=== PATIENT | female | born 1980 | race Caucasian/White ===

== ENCOUNTER 2019-07-19 11:05 | Outpatient (CLI) | payer OTHER, SELFPAY ==
[2019-07-19 11:24] LABS: Hemoglobin A1C 7.3 % (<5.7)
== END 2019-07-19 11:06 | disposition home or self-care (01) ==
PROVIDERS: PCP Family Medicine; Visit Provider Family Medicine
DX: E11.9 Type 2 diabetes mellitus without complications (principal)
CPT/HCPCS: 36415; 83036

== ENCOUNTER 2019-09-28 09:29 | Emergency (ER) | payer OTHER, SELFPAY ==
[2019-09-28 09:40] VITALS: BP 180/100; PULSE 99; RESP 20; TEMP 36.8; O2SAT 95
--- NOTE | 2019-09-28 09:44 | ED.DENTAL ---
HPI - Dental/Oral General Chief complaint: Dental/Oral Stated complaint: PAIN IN MOUTH Time Seen by Provider: 09/28/19 09:31 Source: patient Mode of arrival: ambulatory Limitations: no limitations History of Present Illness HPI Narrative: 39-year-old woman comes in today complaining of face and jaw pain that started several days ago. Patient states that she has got diffuse dental decay and is having her teeth removed in order to get dentures. She states that she woke up this morning with severe pain in her right jaw, right cheek, right rastafari, around her right eye. She states that she feels like she had a fever but did not check her temperature. She has had no vomiting, difficulty swallowing or difficulty breathing. She has a follow-up appointment with her dentist on the 07 of October. MD Complaint: tooth pain Teeth map: 1. Pain 2. pain Onset (ago): day(s) Severity: severe Relieving factors: nothing Exacerbating factors: chewing and cold Context: history of dental caries and poor dental care Associated symptoms: fever and gum swelling Related Data Home Medications Medication Instructions Recorded Confirmed alprazolam 1 mg tablet 1 mg PO BID 01/25/19 09/28/19 duloxetine 60 mg capsule,delayed 60 mg PO BID 01/25/19 09/28/19 release trazodone 100 mg tablet 200 mg PO HS 01/25/19 09/28/19 ziprasidone HCl 60 mg capsule 60 mg PO BID 01/25/19 09/28/19 Allergies Allergy/AdvReac Type Severity Reaction Status Date / Time latex Allergy Intermediate Unknown Verified 09/28/19 09:18 Penicillins Allergy Intermediate Unknown Verified 09/28/19 09:18 propoxyphene [Darvocet-N 100] Allergy Intermediate Unknown Verified 09/28/19 09:18 Review of Systems Constitutional: Constitutional: Denies chills and Reports fever(s) Eyes: Eyes: Denies change in vision and Denies photophobia ENT: Denies dysphagia, Denies nasal congestion and Denies sore throat Cardiovascular: Cardiovascular: Denies chest pain and Denies radiating jaw, neck or arm pain Respiratory: Respiratory: Denies cough, Denies dyspnea and Denies wheezing Gastrointestinal: Gastrointestinal: Denies abdominal pain, Denies diarrhea, Denies nausea and Denies vomiting Musculoskeletal: Musculoskeletal: Denies arthralgias and Denies joint swelling Integumentary/Breasts: Skin/Breast: Denies pruritus, Denies erythema and Denies rash Neurologic: Denies vertigo, Denies dizziness and Denies syncope Hematologic/Lymphatic: Hematologic/Lymphatic: Denies easy bleeding and Denies easy bruising Allergic/Immunologic: Allergic/Immunologic: Denies lip swelling and Denies wheezing PMFSH Past Medical History Medical History ADHD Bipolar disorder Depression RAJ (generalized anxiety disorder) Hyperlipidemia associated with type 2 diabetes mellitus Hypertension associated with diabetes Methamphetamine abuse Neuropathy Nicotine dependence Overweight Tobacco dependence Type 2 diabetes mellitus Vitamin D deficiency Surgical History Surgical History History of bilateral tubal ligation (~2009) Hx of tonsillectomy (~1994) Social History Social History Smoking packs per day: 3 Smoking cigarettes per day: 60.0 Years smoked: 15 Smoking pack-years: 45.00 Smoking status: Current every day smoker Tobacco type: cigarettes Substance use: former Exam Const: General: alert Nutritional Appearance: obese Orientation/consciousness: patient oriented x3 Limitations: no limitations Other: moderate acute distress, tearful HENMT: Ears: external ears normal, TM's normal bilaterally and EAC's normal General nose exam: Normal nares present Face and sinus: normal facial exam Mouth: Yes moist mucous membranes Throat: posterior oropharynx normal Other: Gross decay of the bottom incisors and multiple severely d
[2019-09-28 10:03] VITALS: BP 145/90; PULSE 90; RESP 20; TEMP 36.6; O2SAT 94
== END 2019-09-28 10:07 | disposition home or self-care (01) ==
PROVIDERS: Emergency Provider Emergency Medicine; PCP Family Medicine
DX: K08.89 Other specified disorders of teeth and supporting structures (principal)
CPT/HCPCS: 99283

== ENCOUNTER 2020-06-21 08:59 | Outpatient (CLI) | payer OTHER, SELFPAY ==
[2020-06-21 09:08] LABS: Basophils Absolute Auto 0.07 K/mm3 (0.00-0.10); Basophils Percent Auto 0.6 % (0.0-1.0); Eosinophils Absolute Auto 0.37 K/mm3 (0.02-0.50); Hematocrit 44.6 % (35.0-49.0); Hemoglobin 14.4 g/dL (12.0-15.0); Immature Granulocyte Absolute 0.08 K/mm3 (0.00-0.00); Immature Granulocyte Percent A 0.7 % (0.0-0.0); Lymphocytes Absolute Auto 3.12 K/mm3 (1.10-4.50); Lymphocytes Percent Auto 25.4 % (18.0-42.0); Mean Corpuscular HGB Conc 32.3 g/dL (32.0-36.0); Mean Corpuscular Hemoglobin 27.9 pg (27.0-31.0); Mean Corpuscular Volume 86.4 fL (78.0-102.0); Mean Platelet Volume 9.1 fl (9.2-11.8); Monocytes Absolute Auto 0.75 K/mm3 (0.10-0.90); Monocytes Percent Auto 6.1 % (2.0-11.0); Neutrophils Absolute Auto 7.9 K/mm3 (1.7-7.2); Neutrophils Percent Auto 64.2 % (50.0-70.0); Platelet Count Result 380 K/mm3 (150-420); Red Blood Count 5.16 M/mm3 (4.20-5.40); Red Cell Distribution Width 12.9 % (11.6-14.4); White Blood Count 12.3 K/mm3 (4.8-10.8)
--- NOTE | 2020-06-21 09:25 | ECG_ITS ---
Measurements Intervals [place] Rate: 70 P: 57 PA: 163 QRS: 31 QRSD: 93 T: 40 QT: 403 QTc: 436 Interpretive Statements SINUS RHYTHM INCOMPLETE RIGHT BUNDLE BRANCH BLOCK BORDERLINE ECG Electronically Signed On 06-21-2020 11:02:46 CDT by Tate Raya D.O.
[2020-06-21 09:43] LABS: Alanine Aminotransferase 23 U/L (14-59); Albumin Level 3.4 g/dL (3.4-5.0); Alkaline Phosphatase 60 U/L (46-116); Anion Gap 6 mmol/L (8-16); Aspartate Amino Transferase 13 U/L (15-37); Bilirubin,Total 0.4 mg/dL (0.00-1.00); Blood Urea Nitrogen 11 mg/dL (7-18); Calcium 8.8 mg/dL (8.5-10.1); Carbon Dioxide 31 mmol/L (21-32); Chloride 100 mmol/L (98-108); Cholesterol 119 mg/dL (0-200); Estimated Glomerular Filt Rate > 60; Glucose 181 mg/dL (70-99); HDL Direct 28 mg/dL (40-60); LDL Cholesterol Calculated 42 mg/dL (<130); Osmolality Calculated 288 mOsm/kg (285-295); Potassium 4.8 mmol/L (3.5-5.1); Sodium 137 mmol/L (136-145); Total Protein 6.8 g/dL (6.4-8.2); Triglycerides 244 mg/dL (0-150)
[2020-06-23 23:09] LABS: Lithium <0.15 mmol/L (0.60-1.20)
== END 2020-06-21 09:00 | disposition home or self-care (01) ==
LOC: CHSLAB 09:00
PROVIDERS: PCP Family Medicine; Visit Provider Psychiatry & Neurology Psychiatry
DX: Z79.899 Other long term (current) drug therapy (principal)
CPT/HCPCS: 36415; 80053; 80061; 80178; 85025; 93005

== ENCOUNTER 2020-11-30 11:47 | Emergency (ER) | payer OTHER, SELFPAY ==
--- NOTE | ~2020-11-30 | XR_ITS ---
EXAMINATION: XR knee LT 3V EXAM DATE: 11/30/2020 12:07 INDICATION: Fall, left knee pain . Initial encounter. TECHNIQUE: Three projections of the left knee. There is no prior study for comparison. FINDINGS: There is no left knee joint effusion. There is moderate tricompartmental primary osteoart hritis. Sizable suprapatellar bony productive change, osteoarthritis. There is moderate patellar late ral subluxation and mild lateral tilt. There are no acute fractures or dislocations identified. Ther e is no subcutaneous gas. The soft tissue is unremarkable. There are no radiopaque foreign bodies. IMPRESSION: Moderate left knee osteoarthritis. Patellar tilt and subluxation. No acute findings. Reviewed, dictated and finalized at location A. IMPRESSION: Moderate left knee osteoarthritis. Patellar tilt and subluxation. N o acute findings.
--- NOTE | ~2020-11-30 | CT_ITS ---
EXAMINATION: CT pelvis wo con EXAM DATE: 11/30/2020 13:03 INDICATION: Fall, left hip pain. TECHNIQUE: Spiral CT pelvis wo con was performed without contrast. Axial, coronal and sagittal imag es were reviewed. The dose-length product (DLP) for this examination was 883.88 mGy-cm. The exposur e was tailored according to patient size (auto mA exposure control), and iterative reconstruction ( IR) was used as additional dose reduction technique. There is no prior study for comparison. FINDINGS: There are no acute pelvic, hip fractures or dislocations identified. There is no subcutane ous gas. There are no radiopaque foreign bodies. Right retroperitoneal mass, could be low position to the lower pole of right kidney but can't exclude that this is a renal mass. There is a normal appendix. No pelvic lymphadenopathy. Uterus is antevert ed, ovaries are normal in size. IMPRESSION: 1. Right retroperitoneal mass which could be low lying kidney but can't exclude renal mass. Consider follow-up nonemergent kidney ultrasound. 2. No pelvic or hip fractures. Reviewed, dictated and finalized at location A. IMPRESSION: 1. Right retroperitoneal mass which could be low lying kidney but can't exclud e renal mass. Consider follow-up nonemergent kidney ultrasound. 2. No pelvic or hip fractures.
[2020-11-30] MEDS: HYDROcodone/acetaminophen (*CRX) 5-325 MG TABLET 1 TAB PO (12:07)
[2020-11-30 12:15] VITALS: BP 125/74; PULSE 89; RESP 18; TEMP 37.1; O2SAT 99
--- NOTE | 2020-11-30 12:22 | PC.NURSE ---
pt refused to have in IV started. MD Lopes notified.
[2020-11-30 12:29] LABS: Pregnancy On Board Control Positive; Urine Pregnancy Test Negative
--- NOTE | 2020-11-30 13:41 | ED.FALL ---
HPI - Fall General Chief Complaint: Extremity Injury, Lower Stated Complaint: ambulance Time Seen by Provider: 11/30/20 11:48 Source: patient Mode of arrival: EMS Limitations: no limitations History of Present Illness HPI Narrative: 40-year-old woman comes in today complaining of pain in her left hip and knee that started just prior to arrival while she was walking across the parking lot at [facility]. Patient states that she slipped and an oily patch and fell. She denies passing out, having head injury or injury elsewhere. She denies any numbness or tingling however she states that she has had some nerve problems in her legs in the past. complaint: fall Onset (ago): minute(s) (30) Fall from: standing Fall witnessed: yes, by bystander Place fall occurred: street Loss of consciousness: none Prolonged down time: no Symptoms prior to fall: none Context: tripped/slipped Location of injury - extremities: Left: thigh and knee Quality: sharp and aching Associated symptoms (after fall): denies Related Data Home Medications Medication Instructions Recorded Confirmed alprazolam 1 mg tablet 1 mg PO BID 01/25/19 11/30/20 duloxetine 60 mg capsule,delayed 60 mg PO BID 01/25/19 11/30/20 release trazodone 100 mg tablet 200 mg PO HS 01/25/19 11/30/20 ziprasidone HCl 60 mg capsule 60 mg PO BID 01/25/19 11/30/20 insulin glargine [Basaglar KwikPen 15 unit SUBCUT QPM 11/30/20 11/30/20 U-100 Insulin] Allergies Allergy/AdvReac Type Severity Reaction Status Date / Time latex Allergy Intermediate Unknown Verified 11/30/20 13:46 Penicillins Allergy Intermediate Unknown Verified 11/30/20 13:46 propoxyphene [Darvocet-N 100] Allergy Intermediate Unknown Verified 11/30/20 13:46 Review of Systems Review of Systems: All systems reviewed & are unremarkable except as noted in HPI and below Eyes: Eyes: Denies change in vision and Denies photophobia ENT: Denies nasal congestion and Denies sore throat Respiratory: Respiratory: Denies cough and Denies dyspnea Gastrointestinal: Gastrointestinal: Denies abdominal pain, Denies nausea and Denies vomiting Genitourinary: Genitourinary: Denies nocturia and Denies dysuria Musculoskeletal: Musculoskeletal: Denies arthralgias and Denies joint swelling Integumentary/Breasts: Skin/Breast: Denies pruritus, Denies erythema and Denies rash Neurologic: Denies vertigo, Denies dizziness, Denies syncope, Denies focal weakness, Denies numbness and Denies weakness Hematologic/Lymphatic: Hematologic/Lymphatic: Denies easy bleeding and Denies easy bruising Allergic/Immunologic: Allergic/Immunologic: Denies lip swelling and Denies throat swelling PMFSH Past Medical History Medical History (Updated 11/30/20 @ 13:49 by Jony Lopes MD) ADHD Bipolar disorder Depression RAJ (generalized anxiety disorder) Hyperlipidemia associated with type 2 diabetes mellitus Hypertension associated with diabetes Methamphetamine abuse Neuropathy Nicotine dependence Overweight Tobacco dependence Type 2 diabetes mellitus Vitamin D deficiency Surgical History Surgical History History of bilateral tubal ligation (~2009) Hx of tonsillectomy (~1994) Family History Family History Mother Ovarian cancer Grandparent Ovarian cancer Father Heart disease Leukemia Social History Social History Smoking packs per day: 3 Smoking cigarettes per day: 60.0 Years smoked: 15 Smoking pack-years: 45.00 Smoking status: Current every day smoker Tobacco type: cigarettes Substance use: former Exam Const: General: healthy appearing and alert Orientation/consciousness: patient oriented x3 Limitations: no limitations Other: Moderate acute distress. HENMT: Face and sinus: normal facial exam Mouth: Yes moist mucous membranes
[2020-11-30 14:03] VITALS: BP 128/88; PULSE 91; RESP 17; O2SAT 96
== END 2020-11-30 14:08 | disposition home or self-care (01) ==
PROVIDERS: Emergency Provider Emergency Medicine; PCP Internal Medicine
DX: S83.92XA Sprain of unspecified site of left knee, initial encounter (principal); S70.02XA Contusion of left hip, initial encounter; W01.0XXA Fall on same level from slipping, tripping and stumbling without subsequent striking against object, initial encounter; I10 Essential (primary) hypertension; E78.5 Hyperlipidemia, unspecified; E11.42 Type 2 diabetes mellitus with diabetic polyneuropathy; E55.9 Vitamin D deficiency, unspecified; M17.12 Unilateral primary osteoarthritis, left knee; R19.00 Intra-abdominal and pelvic swelling, mass and lump, unspecified site; F15.10 Other stimulant abuse, uncomplicated; F31.9 Bipolar disorder, unspecified; F41.1 Generalized anxiety disorder; F17.210 Nicotine dependence, cigarettes, uncomplicated; F90.9 Attention-deficit hyperactivity disorder, unspecified type
CPT/HCPCS: 72192; 73562; 81025; 99283; 99284; A9270; L1830

== ENCOUNTER 2020-12-06 08:49 | Outpatient (CLI) | payer OTHER, SELFPAY ==
--- NOTE | ~2020-12-06 | US_ITS ---
EXAMINATION: US retroperitoneal comp EXAM DATE: 12/06/2020 09:13 INDICATION: R93.89 - Abnormal findings on diagnostic imaging of other... Abnormal CT scan. Possible r ight renal mass. TECHNIQUE: Multiple grayscale and Doppler images of the kidneys were obtained (by a technologist who performed the scan) and subsequently reviewed. Comparison is made to prior examination from 03/23/2019 . FINDINGS: Right kidney: There is normal contour and echogenicity. It measures 14.3 x 6.4 x 6.2 centimeters. T here are no focal renal lesions identified. There is no hydronephrosis. Left kidney: There is normal contour and echogenicity. It measures 14.0 x 6.5 x 7.5 centimeters. Th ere are no focal renal lesions identified. There is no hydronephrosis. Bladder unremarkable. IMPRESSION: 1. Sonographically unremarkable kidneys, no evidence of mass. Reviewed, dictated and finalized at location G.
--- NOTE | ~2020-12-06 | XR_ITS ---
XR hip LT 2V w AP pelvis DATE: 12/06/2020 09:17 INDICATION: Left hip pain following fall 6 days ago TECHNIQUE: AP pelvis. AP and lateral views of left hip COMPARISON: 11/30/2020 CT pelvis FINDINGS: There is prominent degenerative disc disease at L5-S1, moderate degenerative disc disease a t L4-5. No pelvic fracture or bone destruction is detected. Millicuries symphysis and sacroiliac join ts are intact. No fracture or dislocation, avascular necrosis or bone destruction of the left hip is evident. Hip lary int spaces are symmetric and relatively preserved. IMPRESSION: Degenerative disc disease at L4-5 and particularly L5-S1. No pelvic fracture or left hip fracture or dislocation Reviewed, dictated and finalized at location A.
== END 2020-12-06 08:50 | disposition home or self-care (01) ==
LOC: CHSIMG 08:50
PROVIDERS: PCP Family Medicine; Visit Provider Family Medicine
DX: R93.89 Abnormal findings on diagnostic imaging of other specified body structures (principal); M25.552 Pain in left hip
CPT/HCPCS: 73502; 76770

== ENCOUNTER 2021-10-06 14:54 | Emergency (ER) | payer OTHER, SELFPAY ==
[2021-10-06] VITALS (16 sets, daily range): BP systolic 73–125; BP diastolic 29–73; PULSE 68–77; RESP 14–20; TEMP 35.7–36.4; O2SAT 92–96
--- NOTE | ~2021-10-06 | XR_ITS ---
EXAMINATION: XR chest 1V portable Exam Date/Time: 10/06/2021 20:20 CDT HISTORY: hypotension. overdose. Comparison: 02/01/2019. RESULT: Lines, tubes, and devices: None. Lungs and pleura: Crowding, accentuated mediastinal structures due to rotation. Cardiomediastinal silhouette: Stable. Other: No acute osseous or upper abdominal finding. IMPRESSION: No acute cardiopulmonary process. Reviewed, dictated and finalized at location K.
--- NOTE | 2021-10-06 15:08 | ECG_ITS ---
Measurements Intervals [place] Rate: 67 P: 34 IA: 142 QRS: 24 QRSD: 102 T: 28 QT: 457 QTc: 483 Interpretive Statements SINUS RHYTHM MINOR RV CONDUCTION ABNORMALITY NONSPECIFIC T-WAVE ABNORMALITY ABNORMAL ECG COMPARED TO ECG 06/21/2020 09:22:47 T-WAVE ABNORMALITY NOW PRESENT Electronically Signed On 10-07-2021 14:44:10 CDT by Harpal Benedict M.D.
[2021-10-06 15:55] LABS: Basophils Absolute Auto 0.08 K/mm3 (0.00-0.10); Basophils Percent Auto 0.6 % (0.0-1.0); Eosinophils Absolute Auto 0.41 K/mm3 (0.02-0.50); Eosinophils Percent Auto 2.9 % (1.0-6.0); Hemoglobin 12.7 g/dL (12.0-15.0); Immature Granulocyte Absolute 0.14 K/mm3 (0.00-0.00); Lymphocytes Absolute Auto 2.42 K/mm3 (1.10-4.50); Lymphocytes Percent Auto 16.8 % (18.0-42.0); Mean Corpuscular HGB Conc 32.6 g/dL (32.0-36.0); Mean Corpuscular Hemoglobin 28.6 pg (27.0-31.0); Mean Corpuscular Volume 87.8 fL (78.0-102.0); Mean Platelet Volume 9.7 fl (9.2-11.8); Monocytes Absolute Auto 0.84 K/mm3 (0.10-0.90); Monocytes Percent Auto 5.8 % (2.0-11.0); Neutrophils Absolute Auto 10.5 K/mm3 (1.7-7.2); Neutrophils Percent Auto 72.9 % (50.0-70.0); Platelet Count Result 337 K/mm3 (150-420); Red Blood Count 4.44 M/mm3 (4.20-5.40); Red Cell Distribution Width 13.3 % (11.6-14.4); White Blood Count 14.4 K/mm3 (4.8-10.8)
[2021-10-06 16:05] LABS: Magnesium 1.3 mg/dL (1.8-2.4); Salicylate 3.1 mg/dL (2.8-20.0)
[2021-10-06 16:13] LABS: Lactic Acid Reflex 2.3 mmol/L (0.4-2.0)
[2021-10-06 16:19] LABS: SPREG INTERNAL CONTROL Positive; Serum Qual hCG Negative
[2021-10-06 16:20] LABS: Alanine Aminotransferase 22 U/L (14-59); Alkaline Phosphatase 61 U/L (46-116); Anion Gap 9 mmol/L (8-16); Aspartate Amino Transferase 11 U/L (15-37); Bilirubin,Total 0.2 mg/dL (0.00-1.00); Blood Urea Nitrogen 17 mg/dL (7-18); Calcium 8.6 mg/dL (8.5-10.1); Carbon Dioxide 29 mmol/L (21-32); Chloride 102 mmol/L (98-108); Estimated CRCL calculation 116 ml/min; Estimated Glomerular Filt Rate > 60; Glucose 360 mg/dL (70-99); Osmolality Calculated 306 mOsm/kg (285-295); Potassium 4.2 mmol/L (3.5-5.1); Sodium 140 mmol/L (136-145); Total Protein 6.3 g/dL (6.4-8.2)
[2021-10-06 16:21] LABS: Acetaminophen < 2 ug/mL (10-30); Ethanol < 3 mg/dL (0-6)
[2021-10-06 16:22] LABS: Creatine Kinase 87 U/L (26-192); Thyroid Stimulating Hormone Reflex 1.35 u/IU/mL (0.36-3.74)
--- NOTE | 2021-10-06 16:29 | ED.GENADULT ---
HPI - General Adult General Chief complaint: Overdose Stated complaint: amb History of Present Illness HPI narrative: The patient is a 41 year old female with history of bipolar affective disorder, schizophrenia, diabetes with neuropathy, and hypertension. She has a history of methamphetamine abuse as well as cigarette use. She is status post tubal ligation. She presents after a suicide attempt by ingestion and overdosing of 60 tablets of atenolol 50 mg each, 60 tablets of trazodone 100 mg each, and 60 tablets of gabapentin, 100 mg each each. Injection occurred at 12:30 pm per her report; although her significant other states that he saw her taking pills just before calling EMS. She takes all 3 medications for her medical conditions. She states she does not want to hurt herself and that she does not want to . She was trying to seek attention from her partner so that he can call her meth sponsor to try to get her off methamphetamine. Her last use of meth was 4 days ago. She does complain of feeling sleepy and tired after taking the pills. Initial blood pressure by EMS was 130/98 with a pulse of 73. 2 mg of glucagon were given by EMS. On arrival here, her initial blood pressure here was 125/73 with a pulse of 76. Her most recent blood pressure is 93/60 despite receiving IV fluids orally already by EMS. She has no complaints except for chronic back pain and buttocks pain. Related Data Home Medications Medication Instructions Recorded Confirmed alprazolam 1 mg tablet 1 mg PO BID 01/25/19 10/06/21 duloxetine 60 mg capsule,delayed 60 mg PO BID 01/25/19 10/06/21 release trazodone 100 mg tablet 200 mg PO HS 01/25/19 10/06/21 ziprasidone HCl 60 mg capsule 60 mg PO BID 01/25/19 10/06/21 Allergies Allergy/AdvReac Type Severity Reaction Status Date / Time latex Allergy Intermediate Unknown Verified 10/06/21 15:21 Penicillins Allergy Intermediate Unknown Verified 10/06/21 15:21 propoxyphene [Darvocet-N 100] Allergy Intermediate Unknown Verified 10/06/21 15:21 Review of Systems Review of Systems: All systems reviewed & are unremarkable except as noted in HPI and below Constitutional: Constitutional: Reports no additional constitutional complaints, Denies anorexia, Denies body ache(s), Denies chills, Denies excessive sweating, Reports fatigue, Denies fever(s), Denies frequent falls, Denies headache(s), Reports malaise, Denies poor appetite and Reports weakness Eyes: Eyes: Reports no additional eye complaints, Denies blurry vision, Denies change in vision, Denies irritation, Denies itchy eyes and Denies photophobia ENT: Reports system reviewed and no additional complaints, except as documented, Reports Normal hearing present, Denies change in voice, Denies dysphagia, Denies vertigo, Denies dizziness, Denies ear discharge, Denies headache(s), Denies hearing loss, Denies hoarseness, Denies nasal congestion, Denies neck pain, Denies sinus pressure, Denies sore throat and Denies throat swelling Cardiovascular: Cardiovascular: Reports no additional cardiovascular complaints, Denies chest pain, Denies syncope, Denies rapid heart rate, Denies irregular heart rhythm, Denies leg edema, Denies dyspnea and Denies slow heart rate Respiratory: Respiratory: Reports no additional respiratory complaints, Denies cough, Denies dyspnea, Denies stridor and Denies wheezing Gastrointestinal: Gastrointestinal: Reports no additional gastrointestinal complaints, Denies abdominal pain, Denies melena, Denies hematochezia, Denies dysphagia, Denies diarrhea, Denies nausea and Denies vomiting Genitourinary: Genitourinary: Denies hematuria, Denies urinary frequency, Denies dysuria, Denies flank pain and Denies urinary urgency Musculoskeletal: Musculoskeletal: Reports no additional musculoskeletal complaints, Denies abnormal gait, Reports back pain, Denies myalgias, Denies arthralgias, Denies joint swelling, Denies limited range of motion, Denies muscle cramps, Reports
[2021-10-06 16:31] LABS: SARS-CoV-2 RNA PCR Negative (Negative)
[2021-10-06 16:40] LABS: Appearance Urine Clear (Clear); Bilirubin Urine Negative (Negative); Color Urine Yellow (Yellow); Glucose Urine UA 1+ (Negative); Ketones Urine Negative (Negative); Leukocyte Esterase Ur Negative LEU/UL (Negative); Nitrate Urine Negative (Negative); Protein Urine Trace (Negative); Specific Grav Ur >= 1.030 (1.010-1.020); Urobilinogen Urine 0.2 mg/dL (0.2-1.0); pH Urine 5.5 (5.0-8.0)
[2021-10-06 16:46] LABS: Add Urine Microscopic? YES; Amphetamine Screen Urine Positive (Negative); Bacteria Urine 1+ /hpf; Barbiturate Screen Urine Negative (Negative); Benzodiazepines Screen Urine Positive (Negative); Blood Urine Trace-Intact (Negative); Cannabinoid Screen Urine Positive (Negative); Cocaine Screen Urine Negative (Negative); Methadone Screen Urine Negative (Negative); Opiate Screen Urine Negative (Negative); Phencyclidine Screen Urine Negative (Negative); RBC Urine 0-2 /hpf (0-2); Squamous Epithelial Cell Urine Many /hpf (Few)
[2021-10-06] MEDS: SODIUM CHLORIDE 0.9% IV 1,000 ML 999 ML IV CONT ×2 (17:18→19:39)
[2021-10-06] MEDS: GLUCAGON FOR INJ 1 MG VIAL 2 MG IV PUSH (18:03)
[2021-10-06] MEDS: MAGNESIUM SULF 4 GM/WATER100ML 4 GM/100 ML BAG IVPB (18:24)
[2021-10-06] MEDS: INSULIN HUMAN REGULAR (*BKC) 100 UNITS/ML 20 UNITS SUB-Q (18:27)
[2021-10-06 18:52] LABS: Reflex Lactic Acid Yes or No Add Lactic
[2021-10-06] MEDS: ATROPINE SULFATE 1 MG/ML VIAL IV PUSH (19:25)
[2021-10-06] MEDS: MIDODRINE HCL 2.5 MG TABLET 10 MG PO (19:39)
[2021-10-06 19:41] LABS: Lactic Acid 1.2 mmol/L (0.4-2.0)
[2021-10-06 19:52] LABS: Glucose Point of Care 312 mg/dl (65-105)
[2021-10-06] MEDS: INSULIN HUMAN REGULAR (*BKC) 100 UNITS/ML 10 UNITS IV PUSH (20:33)
[2021-10-06] MEDS: GLUCAGON FOR INJ 1 MG VIAL 5 MG IV PUSH (20:47)
--- NOTE | 2021-10-06 20:47 | PC.NURSE ---
Glucagon orders note Unable to give ordered glucagon 5mg due to lack of available stock. Available stock permitted to administration of Glucagon 3mg, Md Engel notified. Unable to initiate Glucagon IV infusion due to lack of stock at [facility], Md Engel notified.
[2021-10-06] MEDS: NOREPINEPHRINE 8 MG/D5W 250 ML 8 MG/250 ML BAG 5.63 MG IV CONT (20:56)
[2021-10-06 21:10] LABS: Glucose Point of Care 263 mg/dl (65-105)
--- NOTE | 2021-10-06 21:30 | PC.NURSE ---
Charting error note. Nurse to nurse completed by HUEY Mohamud and HUEY Elias. patient charting after 1929 completed by HUEY Elias accidently charted as HUEY Mohamud.
--- NOTE | 2021-10-07 02:29 | PC.NURSE ---
10/06/21 1924 contacted [facility] house furnishings supervisor for patient transfer 2001 Md Hines returned call for pt transfer 2004 [facility] supervisor Kristen called to provide bed information - pt to be transferred to ICU bed 4 2038 Arch paged for pt transport 2053 Arch called, en route to [facility] 210 Arch at [facility] 2120 Arch departed [facility] 212 nurse to nurse report completed with HUEY Francisco at [facility] ICU
--- NOTE | 2021-10-11 11:09 | PC.NURSE ---
pt arrived to this er at 1030 today and retrieved personal belongings bag
== END 2021-10-06 21:35 | disposition short-term general hospital (02) ==
PROVIDERS: Emergency Provider Emergency Medicine; PCP Family Medicine
DX: T50.992A Poisoning by other drugs, medicaments and biological substances, intentional self-harm, initial encounter (principal); F15.10 Other stimulant abuse, uncomplicated; F32.A Depression, unspecified; R45.851 Suicidal ideations; I95.9 Hypotension, unspecified; Z20.822 Contact with and (suspected) exposure to COVID-19
CPT/HCPCS: 36415; 71045; 80053; 80307; 81001; 82550; 82948; 83605; 83735; 84443; 84703; 85025; 93005; 96361; 96365; 96367; 96375; 96376; 99285; A9270; C9803; J0461; J1610; J1815; J3475; J7030; U0003; U0005

== ENCOUNTER 2021-10-06 21:29 | Inpatient (IN) | payer OTHER, SELFPAY ==
[2021-10-06] VITALS (8 sets, daily range): BP systolic 90–124; BP diastolic 59–79; PULSE 70–73; RESP 17–24; O2SAT 96–98; BMI 39.8
[2021-10-06 22:03] LABS: Glucose Point of Care 223 mg/dl (65-105)
--- NOTE | 2021-10-06 22:10 | PC.NURSE ---
Levophed titrated off.
[2021-10-06 22:25] LABS: INR 1.1
[2021-10-06 22:28] LABS: Anion Gap 8 mmol/L (8-16); Blood Urea Nitrogen 20 mg/dL (7-17); Calcium 8.4 mg/dL (8.4-10.2); Carbon Dioxide 25 mmol/L (22-30); Chloride 103 mmol/L (98-107); Estimated Glomerular Filt Rate > 60; Glucose 237 mg/dL (65-110); Magnesium 2.1 mg/dL (1.6-2.3); Potassium 4.4 mmol/L (3.4-5.0); Sodium 136 mmol/L (137-145)
--- NOTE | 2021-10-06 22:28 | PM.IMHP ---
H&P: HPI History of Present Illness Date/Time: 10/06/21 22:28 Chief Complaint: Overdose Narrative: 41-year-old female with a past medical history of morbid obesity, type 2 diabetes mellitus, glaucoma, hypertension, schizophrenia and drug abuse who presented to the ER at [facility] due to polysubstance overdose. The patient reports that she wanted to contact her sponsor for her drug addiction and her significant other would not let her borrow his phone. She wanted to get his attention so she took 60 tablets of each atenolol 50 mg, trazodone 100 mg, and gabapentin 100 mg. She reported that her ingestion was at 12:30 p.m. but the patient's significant other reported that the patient was still taking tablets when she called EMS. She adamantly denies being suicidal and states that she just wanted to get her significant other's attention. When she presented to [facility] initially her blood pressures were stable. However while she was there her blood pressures did drop to the 80s systolic. Her initial lactic acid was elevated to 2.3. She received 1 L of IV fluid bolus via EMS and received another 2 L at the outside facility. Her repeat lactic acid normalized. Her magnesium was low and she received 4 g magnesium sulfate rider. Her initial EKG at the outside facility demonstrated a normal rate but mildly prolonged QT interval. Her tox screen was positive for amphetamines benzos and marijuana. She reports that her last amphetamine use was 4 days ago. She smokes marijuana on a daily basis and reports that she has a medical marijuana card. She has a prescription for benzodiazepines. She was initially sleepy at the outside ER but at the time of my evaluation the patient is quite vigorously awake. She did start screaming at me when I told her that I could not immediately give her anything to eat or drink. The patient's glucoses at the outside facility were elevated into the 300s. She received a total of 30 units of NovoLog at the outside facility. She did also receive a 5 mg bolus of glucagon by EMS an additional 4 mg of glucagon at the outside facility. The patient did receive atropine at the outside facility but was never bradycardic. The patient's blood pressures were in the 90s systolic prior to her transfer and the outside facility start the patient on Levophed peripherally at 3 mg. The patient was flown here an air ambulance. Flight nurse reported to me that the patient's blood pressure did drop to the 80 systolic on the 3 of Levophed just prior to arrival at our facility in her Levophed was increased to 5 mg. When she arrived to the unit she was given another 5 mg of glucagon. She remained on Levophed at 5 mg. Her repeat blood pressure on a forearm cuff or actually in the 120 systolic. At that time glucagon infusion was paused. The patient's Levophed was weaned. Since that time the patient's blood pressures have remained stable. The patient's mood is labile and she is at times giggling and pleasant in that at other times she has explosive. 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 The patient is been profusely apologetic regarding her actions. Her main complaint at this time his that her mouth is dry. She states that she will start hallucinating if we do not give her her medications. She is adamantly refusing a Montero catheter and is demanding to get up to a bedside commode. She reports symptoms of chronic peripheral neuropathy. She denies any chest pain, shortness of breath, nausea, vomiting, or lightheadedness. She is upset that she has to urinate and that we will not let her get out of bed. Review of Systems Review of Systems: 12 systems were reviewed with pertinent positives and negatives per HPI. Except as documented in the HPI, all other systems were reviewed and are negative. [facility] Past Medical History Medical History (Updated 10/07/21 @ 03:07 by Albin
--- NOTE | 2021-10-06 22:30 | PC.NURSE ---
Glucagon bolus given per Dr. Hines. Glucagon on standby at 2230. 118/73 current BP
--- NOTE | 2021-10-06 22:31 | ECG_ITS ---
Measurements Intervals [place] Rate: 70 P: 23 LA: 164 QRS: -1 QRSD: 96 T: 8 QT: 414 QTc: 450 Interpretive Statements SINUS RHYTHM WITHIN NORMAL LIMITS COMPARED TO ECG 10/06/2021 15:37:50 PROLONGED QT INTERVAL HAS NORMALIZED Electronically Signed On 10-07-2021 14:18:04 CDT by Harpal Benedict M.D.
--- NOTE | 2021-10-06 22:33 | ADMGEN ---
This patient, Lizbet Frankel, was admitted to Intensive Care Unit-4. Patient/family oriented to hospital policies and general routines including ID bracelet, bed and alarms, visiting hours, pain management, procedures, bathroom and other care routines, personal items, smoking policy, room service/diet, and visiting hours. Information on how to activate the Rapid Response Team has been discussed. Patient/Family are encouraged to report perceived risks to care and to ask questions if they do not understand what they are told or what they should do.
[2021-10-06] MEDS: GLUCAGON FOR INJ 10 MG in DEXTROSE 5% 100 ML 50 MG IV CONT (23:32)
[2021-10-06] MEDS: SODIUM CHLORIDE 0.9% IV 1,000 ML 999 ML IV CONT (23:34)
[2021-10-07] VITALS (11 sets, daily range): BP systolic 98–126; BP diastolic 64–77; PULSE 65–74; RESP 13–20; TEMP 36.9–37.3; O2SAT 93–97
[2021-10-07 00:19] LABS: Glucose Point of Care 201 mg/dl (65-105)
[2021-10-07] MEDS: INSULIN GLARGINE (*BKC) 100 UNITS/ML 32 UNITS SUB-Q ×2 (00:31→21:28)
[2021-10-07] MEDS: SODIUM CHLORIDE 0.9% IV 1,000 ML 100 ML IV CONT (00:32)
[2021-10-07 04:41] LABS: Basophils Absolute Auto 0.1 K/mm3 (0.0-0.1); Basophils Percent Auto 0.5 % (0.2-1.2); Eosinophils Absolute Auto 0.4 K/mm3 (0-0.3); Eosinophils Percent Auto 2.7 % (0-4.4); Hematocrit 37.2 % (37.0-47.0); Hemoglobin 11.6 g/dL (12.0-15.0); Immature Granulocyte Percent A 0.7 % (0-0.5); Lymphocytes Absolute Auto 4.36 K/mm3 (0.9-3.2); Lymphocytes Percent Auto 29.6 % (18.3-44.2); Mean Corpuscular HGB Conc 31.2 g/dl (32-36); Mean Corpuscular Hemoglobin 27.4 pg (26-34); Mean Corpuscular Volume 87.7 fl (80-100); Mean Platelet Volume 9.4 fl (7.4-10.4); Monocytes Absolute Auto 0.8 K/mm3 (0.1-0.6); Monocytes Percent Auto 5.4 % (2.6-8.5); Neutrophils Percent Auto 61.1 % (45.5-73.1); Platelet Count Result 333 k/mm3 (150-375); Red Blood Count 4.24 M/mm3 (4.2-5.4); Red Cell Distribution Width 13.8 % (11.5-14.5); White Blood Count 14.7 K/mm3 (4.5-10.0)
[2021-10-07 04:53] LABS: INR 1.2; Prothrombin Time 14.3 Seconds (11.1-14.7)
[2021-10-07 04:54] LABS: Partial Thromboplastin Time 27.6 SECONDS (22.3-36.8)
[2021-10-07 04:57] LABS: Alanine Aminotransferase 14 U/L (6-35); Albumin Level 3.2 g/dL (3.5-5.1); Alkaline Phosphatase 52 U/L (38-126); Anion Gap 5 mmol/L (8-16); Aspartate Amino Transferase 15 U/L (14-36); Bilirubin,Total 0.2 mg/dL (0.2-1.3); Blood Urea Nitrogen 17 mg/dL (7-17); Calcium 7.4 mg/dL (8.4-10.2); Carbon Dioxide 29 mmol/L (22-30); Chloride 104 mmol/L (98-107); Estimated CRCL calculation 155 ml/min; Estimated Glomerular Filt Rate > 60; Glucose 111 mg/dL (65-110); Magnesium 1.9 mg/dL (1.6-2.3); Phosphorus 3.1 mg/dL (2.5-4.5); Potassium 3.9 mmol/L (3.4-5.0); Sodium 138 mmol/L (137-145)
--- NOTE | 2021-10-07 06:00 | ECG_ITS ---
Measurements Intervals [place] Rate: 66 P: 22 NM: 156 QRS: 6 QRSD: 102 T: 13 QT: 453 QTc: 477 Interpretive Statements SINUS RHYTHM WITHIN NORMAL LIMITS COMPARED TO ECG 10/06/2021 21:36:31 NO SIGNIFICANT CHANGES Electronically Signed On 10-07-2021 14:26:59 CDT by Harpal Benedict M.D.
[2021-10-07 07:18] LABS: Glucose Point of Care 157 mg/dl (65-105)
[2021-10-07] MEDS: ENOXAPARIN 40 MG/0.4 ML SYRINGE SUB-Q (08:33)
[2021-10-07] MEDS: ALPRAZolam (*CRX) 0.5 MG TABLET 1 MG PO ×2 (08:33→16:39)
[2021-10-07] MEDS: NICOTINE (*PBKC) 21 MG PATCH 1 PATCH TRANSDERM (08:34)
[2021-10-07] MEDS: ZIPRASIDONE HCL 20 MG CAPSULE 60 MG PO (09:13)
--- NOTE | 2021-10-07 09:28 | WPDCNINT ---
Assessment and Plan Assessment and plan (1) Polysubstance overdose: Code(s): T50.901A - Poisoning by unspecified drugs, medicaments and biological substances, accidental (unintentional), initial encounter Status: Acute Assessment and Plan: Patient with history of bipolar, schizophrenia, methamphetamine abuse, states she wanted to call her sponsor of a drug addiction and the significant other with not let her borrow his phone, so she overdosed on 60 tablets each of fentanyl 50 mg, trazodone 100 mg in, 100 mg. -patient was found to be hypotensive and bradycardic at the outside hospital and was treated with IV fluids, glucagon, atropine, magnesium, Levophed while patient was transferred from the outside hospital to [facility]. -patient denies suicidal or homicidal ideation. Patient has poor insight and has impulsive behavior -poison Control has signed off -patient is currently medically stable -will require psych facility (2) Intentional overdose: Code(s): T50.902A - Poisoning by unspecified drugs, medicaments and biological substances, intentional self-harm, initial encounter Status: Acute Assessment and Plan: Patient currently medically stable, will have care coordination and crisis management evaluate the patient (3) Methamphetamine abuse: Code(s): F15.10 - Other stimulant abuse, uncomplicated Status: Acute Assessment and Plan: Urine was positive for methamphetamine, benzodiazepine and cannabinoids -she will need to get into program for cessation of these medications/drugs (4) Hypotension: Code(s): I95.9 - Hypotension, unspecified Status: Acute Assessment and Plan: Resolved with glucagon, IV fluid bolus -briefly on Levophed during transfer from the outside hospital to the ICU at [facility] (5) QT prolongation: Code(s): R94.31 - Abnormal electrocardiogram [ECG] [EKG] Status: Acute Assessment and Plan: EKG in the ICU here, with normal QT -patient did receive magnesium at the outside hospital (6) Diabetes mellitus with hyperglycemia, with long-term current use of insulin: Code(s): E11.65 - Type 2 diabetes mellitus with hyperglycemia; Z79.4 - long term (current) use of insulin Status: Acute Assessment and Plan: Continue Accu-Cheks and sliding scale insulin along with Lantus (7) Bipolar disorder: Qualifiers: Active/Remission status: remission status unspecified Qualified Code(s): F31.9 - Bipolar disorder, unspecified Code(s): F31.9 - Bipolar disorder, unspecified Status: Acute Assessment and Plan: For started patient on duloxetine (8) Schizophrenia: Code(s): F20.9 - Schizophrenia, unspecified Status: Acute Assessment and Plan: Started patient on Geodon place he states he gets seizures if she did not take her medications Plan Care coordination and crisis management to evaluate the patient Poison Control has signed off the case Additional Plan DVT prophylaxis: Enoxaparin Nutrition, carb consistent diet Code status: Full code Critical care time spent: 44 minutes This dictation may have been done utilizing a voice recognition system. Attempts have been made to correct errors. However, there may be uncorrected grammatical, spelling, and recognition errors present. Due to a high probability of clinically significant, life threatening deterioration, the patient required my highest level of preparedness to intervene emergently and I personally spent this critical care time directly and personally managing the patient. This critical care time included obtaining a history; examining the patient; pulse oximetry; ordering and review of studies; arranging urgent treatment with development of a management plan; evaluation of patient's response to treatment; frequent reassessment; and discussions with other providers. It was exclusive of separately billable procedures and
[2021-10-07] MEDS: DULoxetine HCL 60 MG CAPSULE.DR PO ×2 (09:55→16:39)
[2021-10-07] MEDS: SODIUM CHLORIDE 0.9% IV 1,000 ML 75 ML IV CONT (11:00)
[2021-10-07 11:26] LABS: EDCOVIDSCREEN Negative (Negative)
[2021-10-07 13:15] LABS: Glucose Point of Care 173 mg/dl (65-105)
--- NOTE | 2021-10-07 14:00 | ECG_ITS ---
Measurements Intervals [place] Rate: 71 P: 4 LA: 153 QRS: 3 QRSD: 93 T: 12 QT: 438 QTc: 476 Interpretive Statements SINUS RHYTHM NORMAL ECG COMPARED TO ECG 10/07/2021 05:07:04 NO SIGNIFICANT CHANGES Electronically Signed On 10-07-2021 14:41:18 CDT by Harpal Benedict M.D.
[2021-10-07 14:41] LABS: Glucose Point of Care 251 mg/dl (65-105)
[2021-10-07 16:31] LABS: Glucose Point of Care 159 mg/dl (65-105)
[2021-10-07 19:50] LABS: Glucose Point of Care 174 mg/dl (65-105)
[2021-10-07] MEDS: SIMVASTATIN 20 MG TABLET 40 MG PO (21:26)
[2021-10-07] MEDS: ZIPRASIDONE HCL 20 MG CAPSULE 120 MG PO (21:27)
--- NOTE | 2021-10-07 21:47 | PC.NURSE ---
Addendum entered by Alicia Hampton RN 10/07/21 23:21: facility is [facility], not [facility] Original Note: 2049 Zeke from [facility] called and states that [facility] still has not received fax and has provided new fax number . Requests that information be faxed and facility called to verify receipt. Requests information be faxed to [facility] as well as they have indicated they have beds. Zeke provides fax numbers for both facilities.
--- NOTE | 2021-10-07 21:49 | PC.NURSE ---
Addendum entered by Alicia Hampton RN 10/07/21 23:21: Facility contacted is [facility] not [facility] Original Note: [id number] Information faxed to [facility] at fax #[phone]. Facility called and made aware fax was sent and number verified. Brief report given and staff states they will call if fax is not received.
--- NOTE | 2021-10-07 21:52 | PC.NURSE ---
2427 Faxed paperwork to [facility]. Called and spoke with intake to make aware information is on the way and to call if not received. Fax number verified and call back number provided.
--- NOTE | 2021-10-07 23:19 | PC.NURSE ---
Addendum entered by Alicia Hampton, RN 10/07/21 23:22: facility contacted and declining patient is [facility], not [facility]. Original Note: Called [facility] to make sure paperwork was received and intake nurse states the patient was refused due to medical acuity stating the physician declining cited overdosing on medications and initial blood glucose (at [facility]) over 300.
--- NOTE | 2021-10-07 23:25 | PC.NURSE ---
Call placed to [facility] and intake staff Lianne verifies they have received the paperwork that was faxed over.
--- NOTE | 2021-10-08 00:57 | PC.NURSE ---
0045 Spoke with intake at [facility] and patient has been accepted by Dr. Lazaro.
[2021-10-08 01:30] VITALS: BP 119/74; PULSE 80; RESP 20; TEMP 36.8; O2SAT 95
--- NOTE | 2021-10-08 04:10 | PC.NURSE ---
Call received from [facility] from [facility] with room 2243F for patient. Report Given to [facility]. Transport to be her in approximately 40 minutes.
--- NOTE | 2021-10-08 05:10 | PC.NURSE ---
[facility] picked up pt at 0445. Pt wheeled to vehicle with wheel chair. necklace and ring handed to auto crane driver.
--- NOTE | 2021-10-08 05:17 | PC.NURSE ---
[facility] made aware that patient in in transit.
--- NOTE | 2021-10-08 06:10 | PC.NURSE ---
6637 before leaving unit this nurse asked patient if she wanted me to call her and make him aware she was being transferred, patient declined stating she would call him from the [facility] today.
--- NOTE | 2021-10-08 06:33 | PC.NURSE ---
Mother made aware of transfer to [facility]. Phone number provided.
--- NOTE | 2021-10-18 21:36 | PM.TDS ---
Transfer Discharge Sum: Prov Provider Date of admission: 10/06/21 21:29 Primary care physician: Clark Graff DO Admitting clinician: Alicia Hines DO Consults: 10/06/21 Consult to Physician Routine Comment: Consulting Provider: Edith Pickett director call center sales/MD group to consult: Dr. Pickett Reason for consultation: Polysubstance overdose Has provider been notified: Yes Receiving physician/facility: Study unknown as I did not arrange transfer DS: Admitting Diagnosis Discharge Date 10/08/21 Admitting Diagnosis Polysubstance overdose Attention seeking behavior DS: Discharge Diagnosis Discharge Diagnosis (1) QT prolongation: Code(s): R94.31 - Abnormal electrocardiogram [ECG] [EKG] Status: Acute (2) Hypomagnesemia: Code(s): E83.42 - Hypomagnesemia Status: Acute (3) Diabetes mellitus with hyperglycemia, with long-term current use of insulin: Code(s): E11.65 - Type 2 diabetes mellitus with hyperglycemia; Z79.4 - 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 I am unaware of which Psychiatric Facility the patient was transferred to at this was arranged by kerrick kleaner operator. The patient was medically cleared by the kerrick kleaner operator. Transfer Discharge Sum: Med Medications Active and Home Medications: Home Medications alprazolam 1 mg tablet 1 mg PO BID 01/25/19 [History Confirmed 10/06/21] duloxetine 60 mg capsule,delayed release 60 mg PO BID 01/25/19 [History Confirmed 10/06/21] trazodone 100 mg tablet 200 mg PO HS 01/25/19 [History Confirmed 10/06/21] ziprasidone HCl 60 mg capsule 60 mg PO DAILY 01/25/19 [History Confirmed 10/06/21] insulin syringe-needle U-100 1 mL 30 gauge x 1/2 (Sure Comfort Insulin Syringe) See Rx Instructions .Route .COMPLEX #100 syringes 05/28/21 [Rx Confirmed 10/06/21] doxycycline monohydrate 100 mg capsule 100 mg PO BID 10/06/21 [History Confirmed 10/06/21] gabapentin 100 mg capsule 100 mg PO BID 10/06/21 [History Confirmed 10/06/21] insulin aspar prt-insulin aspart 100 unit/mL (70-30) subcutaneous soln (Novolog Mix 70-30 U-100 Insuln) 10 unit subcut BID 10/06/21 [History Confirmed 10/06/21] insulin glargine 100 unit/mL (3 mL) subcutaneous pen (Basaglar KwikPen U-100 Insulin) 32 unit subcut HS 10/06/21 [History Confirmed 10/06/21] ziprasidone HCl 60 mg capsule 120 mg PO HS 10/06/21 [History Confirmed 10/06/21] atenolol 50 mg tablet See Rx Instructions .Route .COMPLEX #30 tabs 10/14/21 [Rx] lancets 33 gauge (TRUEplus Lancets) #100 ea 10/14/21 [Rx] metformin 1,000 mg tablet See Rx Instructions .Route .COMPLEX #60 tabs 10/14/21 [Rx] ondansetron HCl 4 mg tablet See Rx Instructions .Route .COMPLEX #30 tabs 10/14/21 [Rx] pen needle, diabetic 29 gauge x 1/2 (TRUEplus Pen Needle) ##100 10/14/21 [Rx] simvastatin 40 mg tablet See Rx Instructions .Route .COMPLEX #30 tabs 10/14/21 [Rx] Transfer Discharge Sum: Hosp Hospital Course Hospital course: Lizbet Frankel is a 41 year old female who presented to the hospital with polysubstance overdose for attention seeking behavior. She has a history of methamphetamine abuse and was seeking help. The patient was cleared by the kerrick kleaner operator and the patient was transferred to psychiatric care. Time Spent with Patient Time attestation: Total time spent providing and/or coordinating transfer services:0 Exam Narrative: Not performed. I did not see the patient. Nursing staff asked me for a transfer order as the kerrick kleaner operator did not put in the transfer order when he arrange transfer.
== END 2021-10-08 04:50 | disposition other institution (70) | DRG 817 ==
PROVIDERS: Internal Medicine; Admitting Provider Internal Medicine; PCP Family Medicine; Visit Provider Internal Medicine
DX: T40.412A Poisoning by fentanyl or fentanyl analogs, intentional self-harm, initial encounter (principal); T43.212A Poisoning by selective serotonin and norepinephrine reuptake inhibitors, intentional self-harm, initial encounter; Z20.822 Contact with and (suspected) exposure to COVID-19; I95.9 Hypotension, unspecified; E11.65 Type 2 diabetes mellitus with hyperglycemia; F31.9 Bipolar disorder, unspecified; F20.9 Schizophrenia, unspecified; E11.42 Type 2 diabetes mellitus with diabetic polyneuropathy; Z68.41 Body mass index [BMI] 40.0-44.9, adult; F17.210 Nicotine dependence, cigarettes, uncomplicated; E86.0 Dehydration; E66.01 Morbid (severe) obesity due to excess calories; F15.10 Other stimulant abuse, uncomplicated; F12.90 Cannabis use, unspecified, uncomplicated; Z79.4 Long term (current) use of insulin
CPT/HCPCS: 36415; 80048; 80053; 82948; 83735; 84100; 85025; 85610; 85730; 87426; 93005; A9270; C9803; J1610; J1650; J1815; J7030

== ENCOUNTER 2021-11-06 15:51 | Outpatient (CLI) | payer OTHER, SELFPAY ==
[2021-11-06 16:06] LABS: Hematocrit 43.2 % (35.0-49.0); Hemoglobin 14.3 g/dL (12.0-15.0); Mean Corpuscular HGB Conc 33.1 g/dL (32.0-36.0); Mean Corpuscular Hemoglobin 28.2 pg (27.0-31.0); Mean Corpuscular Volume 85.2 fL (78.0-102.0); Mean Platelet Volume 9.4 fl (9.2-11.8); Platelet Count Result 470 K/mm3 (150-420); Red Blood Count 5.07 M/mm3 (4.20-5.40); Red Cell Distribution Width 13.1 % (11.6-14.4); White Blood Count 14.8 K/mm3 (4.8-10.8)
[2021-11-06 16:20] LABS: Prothrombin Time 10.9 Seconds (9.50-12.10)
[2021-11-06 16:21] LABS: Alanine Aminotransferase 24 U/L (14-59); Albumin Level 4.2 g/dL (3.4-5.0); Alkaline Phosphatase 80 U/L (46-116); Anion Gap 11 mmol/L (8-16); Aspartate Amino Transferase 16 U/L (15-37); Bilirubin,Total 0.3 mg/dL (0.00-1.00); Blood Urea Nitrogen 20 mg/dL (7-18); Calcium 9.8 mg/dL (8.5-10.1); Carbon Dioxide 28 mmol/L (21-32); Chloride 98 mmol/L (98-108); Estimated Glomerular Filt Rate > 60; Glucose 172 mg/dL (70-99); Lipase 85 U/L (73-393); Osmolality Calculated 290 mOsm/kg (285-295); Potassium 4.2 mmol/L (3.5-5.1); Sodium 137 mmol/L (136-145); Total Protein 8.3 g/dL (6.4-8.2)
== END 2021-11-06 15:52 | disposition home or self-care (01) ==
LOC: CHSLAB 15:52
PROVIDERS: PCP Family Medicine; Visit Provider Family Medicine
DX: K86.1 Other chronic pancreatitis (principal); R10.9 Unspecified abdominal pain
CPT/HCPCS: 36415; 80053; 83690; 85027; 85610

== ENCOUNTER 2021-11-28 02:53 | Emergency (ER) | payer OTHER, SELFPAY ==
--- NOTE | ~2021-11-28 | CT_ITS ---
EXAMINATION: CT abdomen pelvis wo con DATE: 11/28/2021 03:27 INDICATION: Left upper quadrant abdominal pain. Vomiting. TECHNIQUE: Computed tomography (CT) of the abdomen and pelvis was performed without intravenous contr ast. Automated exposure control and iterative reconstruction technique were employed. The dose-length product was 1565.45 mGy-cm. COMPARISON: Pelvis CT 11/30/2020 FINDINGS: The visualized portions of the lung bases are clear without pneumonia or pleural effusion. The heart size is normal. No pericardial effusion. The liver, gallbladder, spleen, pancreas, and righ t adrenal gland are normal. There is a 1.7 cm mass in right adrenal gland measuring low attenuation, consistent with an adenoma. The kidneys are normal. There is no urolithiasis. There are no dilated lo ops of bowel. The appendix is normal. There are no pathologically enlarged lymph nodes. There is no f ree intraperitoneal fluid. There is severe lower lumbar spondylosis. IMPRESSION: 1. No etiology for the patient's symptoms. Reviewed, dictated and finalized at location [facility].
[2021-11-28 03:22] VITALS: BP 115/70; PULSE 88; RESP 20; TEMP 37; O2SAT 98
--- NOTE | 2021-11-28 03:23 | ED.GENADULT ---
HPI - General Adult General Chief complaint: Medical Clearance Stated complaint: anxiety Source: patient Mode of arrival: ambulatory Limitations: no limitations History of Present Illness HPI narrative: PATIENT IS A 41-YEAR-OLD WHITE FEMALE MORBIDLY OBESE COMPLAINS OF CHRONIC PANCREATITIS. TONIGHT SHE COMPLAINS OF LEFT UPPER QUADRANT PAIN FOR THE LAST 2 DAYS NAUSEA AND VOMITING. SHE ALSO SAID SOME ONE STOOL HER ALPRAZOLAM AND SHE IS OUT OF HER ANXIETY MEDICINE AND NEEDS SOMETHING FOR ANXIETY. SHE SAID SHE GOT HER ALPRAZOLAM FILLED ON 11/06. SHE GOT 10 VICODIN ON 11/06 ALSO. PATIENT RATES HER PAIN AT 8/10 IN SEVERITY NONRADIATING. SHE DENIED ANY BLOOD IN HER STOOL DIARRHEA OR CONSTIPATION LAST BOWEL MOVEMENT WAS YESTERDAY. Related Data Home Medications Medication Instructions Recorded Confirmed alprazolam 1 mg tablet See Rx Instructions .Route .COMPLEX 01/25/19 11/28/21 duloxetine 60 mg capsule,delayed 60 mg PO BID 01/25/19 11/28/21 release trazodone 100 mg tablet 200 mg PO HS 01/25/19 11/28/21 ziprasidone HCl 60 mg capsule 60 mg PO DAILY 01/25/19 11/28/21 gabapentin 100 mg capsule 100 mg PO BID 10/06/21 11/28/21 insulin glargine 100 unit/mL (3 32 unit subcut HS 10/06/21 11/28/21 mL) subcutaneous pen (Basaglar KwikPen U-100 Insulin) ziprasidone HCl 60 mg capsule 120 mg PO HS 10/06/21 11/28/21 Allergies Allergy/AdvReac Type Severity Reaction Status Date / Time latex Allergy Intermediate Unknown Verified 11/06/21 13:29 Penicillins Allergy Intermediate Unknown Verified 11/06/21 13:29 propoxyphene [Darvocet-N 100] Allergy Intermediate Unknown Verified 11/06/21 13:29 Review of Systems Review of Systems: All systems reviewed & are unremarkable except as noted in HPI and below Constitutional: Constitutional: Reports as per HPI and Reports no additional constitutional complaints Eyes: Eyes: Reports no additional eye complaints ENT: Reports system reviewed and no additional complaints, except as documented Cardiovascular: Cardiovascular: Reports no additional cardiovascular complaints, Denies chest pain and Denies rapid heart rate Respiratory: Respiratory: Reports no additional respiratory complaints, Denies chest congestion, Denies cough, Denies dyspnea and Denies wheezing Gastrointestinal: Gastrointestinal: Reports as per HPI, Reports abdominal pain, Denies bloating, Denies constipation, Denies heartburn, Denies diarrhea, Reports nausea and Reports vomiting Genitourinary: Genitourinary: Reports no additional female genitourinary complaints, Denies hematuria, Denies nocturia, Denies dysuria, Denies flank pain and Denies urinary incontinence Musculoskeletal: Musculoskeletal: Reports no additional musculoskeletal complaints Integumentary/Breasts: Skin/Breast: Reports system reviewed and no additional complaints, except as docu Neurologic: Reports system reviewed and no additional complaints, except as documented Psychiatric: Psychiatric: Reports no additional psychiatric complaints, Reports anxiety and Denies depression PMFSH Past Medical History Medical History (Updated 11/28/21 @ 05:08 by Alcon Aguilar MD) Abdominal pain ADHD Bipolar disorder Depression Diabetic peripheral neuropathy RAJ (generalized anxiety disorder) Hyperlipidemia associated with type 2 diabetes mellitus Hypertension associated with diabetes Methamphetamine abuse Nicotine dependence Obesity Schizophrenia Tobacco dependence Type 2 diabetes mellitus Vitamin D deficiency Surgical History Surgical History History of bilateral tubal ligation (~2009) Hx of tonsillectomy (~1994) Status post open reduction with internal fixation of fracture (~2002) Right ankle fracture with subsequent removal hardware 4 years later Family History Family History Mother Ovarian cancer Diabetes mellitus Multiple sclerosis Grandp
[2021-11-28 03:26] LABS: Add Urine Microscopic? YES; Appearance Urine Clear (Clear); Bilirubin Urine Negative (Negative); Blood Urine 3+ (Negative); Color Urine Yellow (Yellow); Glucose Urine UA Negative (Negative); Ketones Urine Negative (Negative); Leukocyte Esterase Ur Negative (Negative); Nitrate Urine Negative (Negative); Protein Urine Negative (Negative); Specific Grav Ur >= 1.030 (1.010-1.020); Urobilinogen Urine 0.2 mg/dL (0.2-1.0)
[2021-11-28 03:34] LABS: Hematocrit 41.1 % (35.0-49.0); Hemoglobin 13.6 g/dL (12.0-15.0); Mean Corpuscular HGB Conc 33.1 g/dL (32.0-36.0); Mean Corpuscular Hemoglobin 28.3 pg (27.0-31.0); Mean Corpuscular Volume 85.4 fL (78.0-102.0); Mean Platelet Volume 9.5 fl (9.2-11.8); Platelet Count Result 439 K/mm3 (150-420); Red Blood Count 4.81 M/mm3 (4.20-5.40); Red Cell Distribution Width 12.8 % (11.6-14.4); White Blood Count 12.8 K/mm3 (4.8-10.8)
[2021-11-28 03:35] LABS: Amphetamine Screen Urine Positive (Negative); Barbiturate Screen Urine Negative (Negative); Benzodiazepines Screen Urine Negative (Negative); Cannabinoid Screen Urine Positive (Negative); Cocaine Screen Urine Negative (Negative); Methadone Screen Urine Negative (Negative); Opiate Screen Urine Negative (Negative); Phencyclidine Screen Urine Negative (Negative)
[2021-11-28 03:36] LABS: Bacteria Urine 1+ /hpf; Squamous Epithelial Cell Urine Moderate /hpf (Few)
[2021-11-28] MEDS: HYDROcodone/acetaminophen (*CRX) 10-325 MG TABLET 1 TAB PO (03:37)
[2021-11-28] MEDS: LORazepam (*CRX) 1 MG TABLET PO (03:37)
[2021-11-28] MEDS: ONDANSETRON HCL ODT 4 MG TABLET PO (03:37)
[2021-11-28 03:43] LABS: Pregnancy On Board Control Positive; Urine Pregnancy Test Negative
[2021-11-28 03:49] LABS: Alanine Aminotransferase 29 U/L (14-59); Albumin Level 3.8 g/dL (3.4-5.0); Alkaline Phosphatase 104 U/L (46-116); Anion Gap 7 mmol/L (8-16); Aspartate Amino Transferase 18 U/L (15-37); Bilirubin,Total 0.3 mg/dL (0.00-1.00); Blood Urea Nitrogen 13 mg/dL (7-18); Calcium 8.7 mg/dL (8.5-10.1); Carbon Dioxide 31 mmol/L (21-32); Chloride 98 mmol/L (98-108); Estimated CRCL calculation 120 ml/min; Estimated Glomerular Filt Rate > 60; Glucose 167 mg/dL (70-99); Lipase 308 U/L (73-393); Magnesium 1.8 mg/dL (1.8-2.4); Osmolality Calculated 286 mOsm/kg (285-295); Sodium 136 mmol/L (136-145); Total Protein 7.5 g/dL (6.4-8.2)
[2021-11-28 04:37] VITALS: BP 122/80; PULSE 80; RESP 18; TEMP 36.6; O2SAT 95
[2021-11-28 05:08] VITALS: BP 123/75; PULSE 88; RESP 18; TEMP 37.2; O2SAT 95
== END 2021-11-28 05:21 | disposition home or self-care (01) ==
PROVIDERS: Emergency Provider Emergency Medicine; PCP Family Medicine
DX: R10.9 Unspecified abdominal pain (principal); F41.9 Anxiety disorder, unspecified; Z76.5 Malingerer [conscious simulation]
CPT/HCPCS: 36415; 74176; 80053; 80307; 81001; 81025; 83690; 83735; 85027; 99284; A9270

== ENCOUNTER 2022-01-01 14:11 | Outpatient (CLI) | payer OTHER, SELFPAY ==
[2022-01-01 14:33] LABS: Creatinine Urine 143.82 mg/dL (40-278); MALB Creatinine Ratio 47.2 mg/g (0-30)
[2022-01-01 14:37] LABS: Hemoglobin A1C 8.1 % (<5.7)
[2022-01-01 14:56] LABS: Alanine Aminotransferase 22 U/L (14-59); Albumin Level 3.7 g/dL (3.4-5.0); Alkaline Phosphatase 68 U/L (46-116); Anion Gap 9 mmol/L (8-16); Aspartate Amino Transferase < 10 U/L (15-37); Bilirubin,Total 0.2 mg/dL (0.00-1.00); Blood Urea Nitrogen 18 mg/dL (7-18); Calcium 8.4 mg/dL (8.5-10.1); Carbon Dioxide 27 mmol/L (21-32); Chloride 102 mmol/L (98-108); Cholesterol 100 mg/dL (0-200); Estimated Glomerular Filt Rate > 60; Glucose 287 mg/dL (70-99); HDL Direct 28 mg/dL (40-60); LDL Cholesterol Calculated -21 mg/dL (<130); Osmolality Calculated 297 mOsm/kg (285-295); Potassium 4.2 mmol/L (3.5-5.1); Sodium 138 mmol/L (136-145); Total Protein 7.6 g/dL (6.4-8.2); Triglycerides 463 mg/dL (0-150)
[2022-01-01 14:57] LABS: LDL Cholesterol Direct 40 mg/dL (0-130)
== END 2022-01-01 14:12 | disposition home or self-care (01) ==
PROVIDERS: PCP Family Medicine; Visit Provider Family Medicine
DX: E11.9 Type 2 diabetes mellitus without complications (principal)
CPT/HCPCS: 36415; 80053; 80061; 82043; 83036; 83721

== ENCOUNTER 2022-01-12 13:26 | Emergency (ER) | payer OTHER, SELFPAY ==
--- NOTE | ~2022-01-12 | CT_ITS ---
EXAMINATION: CT abdomen pelvis w con DATE: 01/12/2022 15:28 INDICATION: Right upper quadrant abdominal pain, worse postprandially TECHNIQUE: Computed tomography (CT) of the abdomen and pelvis was performed with 100 CC Omnipaque 350 intravenous contrast. Automated exposure control and iterative reconstruction technique were employe d. Exam dose: 1593.64 mGy-cm total exam DLP. COMPARISON: 11/28/2021 CT abdomen pelvis FINDINGS: The lung bases are clear of infiltrate or consolidation. Normal heart size. No pericardial or pleural effusion. The gallbladder is relatively contracted. No gallbladder wall thickening or pericholecystic fluid or fat stranding. No bile duct dilatation. The liver, spleen, pancreas, and left adrenal gland and bilateral kidneys are unremarkable. Small rig ht adrenal adenoma is again noted. No urinary tract calculus or hydroureteronephrosis. Normal caliber of the abdominal aorta. No intraperitoneal or retroperitoneal or pelvic mass lesion or adenopathy or ascites. The uterus, adnexal areas and urinary bladder are unremarkable. Normal appendix. No bowel obstruction, bowel wall thickening, pneumatosis or intraperitoneal free air . Degenerative changes of the thoracic and lumbar spine including moderately severe to severe degenerat arslan disc disease at L4-5 and severe degenerative disease at L5-S1. No suspicious osteolytic or osteob lastic lesions are noted. IMPRESSION: No significant abdominal or pelvic abnormality or significant change since 11/28/2021 Reviewed, dictated and finalized at [facility]. Reviewed, dictated and finalized at location A. IFIED MEDICAL TRANSCRIPTIONIST IMPRESSION: No significant abdominal or pelvic abnormality or significant farooq ge since 11/28/2021
[2022-01-12 13:41] VITALS: BP 119/74; PULSE 94; RESP 18; TEMP 36.9; O2SAT 97
--- NOTE | 2022-01-12 13:59 | ED.NAVMDI ---
HPI - Nausea/Vomiting/Diarrhea General Chief complaint: Nausea/Vomiting/Diarrhea Stated complaint: Fever/right side pain/ Time Seen by Provider: 01/12/22 13:59 Source: patient and RN notes reviewed Mode of arrival: ambulatory Limitations: no limitations History of Present Illness MD elicited complaint: nausea, vomiting, diarrhea and abdominal pain Onset (ago): day(s) (2) Description of vomiting: food contents Description of diarrhea: watery Associated nausea: Yes Associated abdominal pain: Yes Location of pain: RUQ Pain consistency: intermittent Severity: moderate Quality: cramping and aching Exacerbating factors: eating Relieving factors: none Associated symptoms: fever/chills (100.1) Related Data Home Medications Medication Instructions Recorded Confirmed gabapentin 100 mg capsule 100 mg PO BID 10/06/21 01/12/22 Allergies Allergy/AdvReac Type Severity Reaction Status Date / Time latex Allergy Intermediate Unknown Verified 01/12/22 13:44 Penicillins Allergy Intermediate Unknown Verified 01/12/22 13:44 propoxyphene [Darvocet-N 100] Allergy Intermediate Unknown Verified 01/12/22 13:44 Review of Systems Review of Systems: All systems reviewed & are unremarkable except as noted in HPI and below Constitutional: Constitutional: Denies chills and Denies fever(s) Gastrointestinal: Gastrointestinal: Denies diarrhea PMFSH Past Medical History Medical History Abdominal pain ADHD Bipolar disorder Depression Diabetic peripheral neuropathy RAJ (generalized anxiety disorder) Hyperlipidemia associated with type 2 diabetes mellitus Hypertension associated with diabetes Methamphetamine abuse Nicotine dependence Obesity Schizophrenia Tobacco dependence Type 2 diabetes mellitus Vitamin D deficiency Surgical History Surgical History History of bilateral tubal ligation (~2009) Hx of tonsillectomy (~1994) Status post open reduction with internal fixation of fracture (~2002) Right ankle fracture with subsequent removal hardware 4 years later Family History Family History Mother Ovarian cancer Diabetes mellitus Multiple sclerosis Grandparent Ovarian cancer Father Heart disease Leukemia Social History Social History Social History: She has smoked as much as 2 packs of cigarettes per day. She started smoking when she was 18. She is down to 1 pack of cigarettes per day. She does not drink any alcohol. She smokes marijuana daily. She has smoked and snorted methamphetamines for the last 7 years. She denies any other illicit substance use. She lives with her significant other. She has 9 cats and 3 dogs at home. She has a pit bull, husky and hound dog. Smoking packs per day: 1.5 Smoking cigarettes per day: 30.0 Years smoked: 23 Smoking pack-years: 34.50 Smoking status: Current every day smoker Tobacco type: cigarettes Additional smoking assessment comments: Patient stated she use to smoke 2 packs a day Alcohol intake: never Substance use: current Substance use type: marijuana, crack/cocaine, painkillers and prescription drug Last use: 10/06/2021 marijuana, meth 10/02/2021 Lack of Transportation: YES Lack of Food: Sometimes True Current Housing: I Have Housing Concerned About Future Housing: Decline to Answer Difficulty Paying Gas/Electric Bills: YES Difficulty Paying for Meds: No Currently Unemployed: No Education: High School Diploma/GED Difficulty w/ Childcare or Family Care: No Additional living arrangements comments: Lives with her significant other. Additional occupation/education comments: On disability. Spiritual care concerns: No Exam Const: General: healthy appearing, no acute distress and alert Nutritional Appearance: obese morbi
[2022-01-12 14:27] LABS: Basophils Absolute Auto 0.04 K/mm3 (0.00-0.10); Basophils Percent Auto 0.4 % (0.0-1.0); Eosinophils Absolute Auto 0.31 K/mm3 (0.02-0.50); Eosinophils Percent Auto 3.1 % (1.0-6.0); Hematocrit 39.3 % (35.0-49.0); Hemoglobin 12.7 g/dL (12.0-15.0); Immature Granulocyte Absolute 0.06 K/mm3 (0.00-0.00); Immature Granulocyte Percent A 0.6 % (0.0-0.0); Lymphocytes Absolute Auto 3.22 K/mm3 (1.10-4.50); Lymphocytes Percent Auto 32.3 % (18.0-42.0); Mean Corpuscular HGB Conc 32.3 g/dL (32.0-36.0); Mean Corpuscular Hemoglobin 27.9 pg (27.0-31.0); Mean Corpuscular Volume 86.2 fL (78.0-102.0); Mean Platelet Volume 9.6 fl (9.2-11.8); Monocytes Absolute Auto 0.57 K/mm3 (0.10-0.90); Monocytes Percent Auto 5.7 % (2.0-11.0); Neutrophils Absolute Auto 5.8 K/mm3 (1.7-7.2); Neutrophils Percent Auto 57.9 % (50.0-70.0); Platelet Count Result 368 K/mm3 (150-420); Red Blood Count 4.56 M/mm3 (4.20-5.40); Red Cell Distribution Width 12.9 % (11.6-14.4)
[2022-01-12 14:36] LABS: Add Urine Microscopic? YES; Bilirubin Urine Negative (Negative); Blood Urine Negative (Negative); Color Urine Yellow (Yellow); Glucose Urine UA 2+ (Negative); Ketones Urine Negative (Negative); Leukocyte Esterase Ur Negative LEU/UL (Negative); Nitrate Urine Negative (Negative); Protein Urine Negative (Negative); Specific Grav Ur >= 1.030 (1.010-1.020); Urobilinogen Urine 0.2 mg/dL (0.2-1.0)
[2022-01-12 14:41] LABS: Alanine Aminotransferase 20 U/L (14-59); Albumin Level 3.4 g/dL (3.4-5.0); Alkaline Phosphatase 61 U/L (46-116); Anion Gap 8 mmol/L (8-16); Aspartate Amino Transferase < 10 U/L (15-37); Bilirubin,Total 0.1 mg/dL (0.00-1.00); Blood Urea Nitrogen 9 mg/dL (7-18); Calcium 8.4 mg/dL (8.5-10.1); Carbon Dioxide 27 mmol/L (21-32); Chloride 102 mmol/L (98-108); Estimated Glomerular Filt Rate > 60; Glucose 242 mg/dL (70-99); Osmolality Calculated 290 mOsm/kg (285-295); Potassium 4.6 mmol/L (3.5-5.1); Sodium 137 mmol/L (136-145); Total Protein 6.9 g/dL (6.4-8.2)
[2022-01-12 14:45] LABS: Amorphous Sediment Urine Few; Appearance Urine Slightly Cloudy (Clear); Bacteria Urine 1+ /hpf; Squamous Epithelial Cell Urine Many /hpf (Few)
[2022-01-12 14:47] LABS: CRP < 0.5 mg/dL (0.0-0.9)
[2022-01-12 14:56] LABS: SPREG INTERNAL CONTROL Positive; Serum Qual hCG Negative
[2022-01-12 15:04] LABS: Lipase 132 U/L (73-393)
[2022-01-12] MEDS: DICYCLOMINE HCL INJ 20 MG/2 ML VIAL IM (15:49)
[2022-01-12 16:21] VITALS: BP 120/76; PULSE 93; RESP 18; TEMP 37.1; O2SAT 98
[2022-01-12 16:24] VITALS: BP 120/76; PULSE 95; RESP 18; TEMP 37.1; O2SAT 98
== END 2022-01-12 16:33 | disposition home or self-care (01) ==
PROVIDERS: Emergency Provider Emergency Medicine; PCP Family Medicine
DX: K52.9 Noninfective gastroenteritis and colitis, unspecified (principal); K80.50 Calculus of bile duct without cholangitis or cholecystitis without obstruction
CPT/HCPCS: 36415; 74177; 80053; 81001; 83690; 84703; 85025; 86140; 96372; 99284; J0500; Q9967

== ENCOUNTER 2022-01-16 08:06 | Outpatient (CLI) | payer OTHER, SELFPAY ==
--- NOTE | ~2022-01-16 | US_ITS ---
US abdomen limited INDICATION: Abdomen pain PROCEDURE: Realtime right upper abdominal ultrasound. COMPARISON: No prior studies for comparison. FINDINGS: The pancreas is obscured by bowel content. Liver is enlarged measuring 23.2 cm. Liver echo texture is increased, consistent with fatty infiltration. No focal hepatic masses. There is normal d irectional flow in the portal vein. The gallbladder is normal without stones, gallbladder wall thickening or pericholecystic fluid. Comm on bile duct measures 4.4 mm. No sonographic Mccarthy's sign. IMPRESSION: 1: Hepatomegaly with fatty infiltration of the liver. Reviewed, dictated and finalized at location A. STRIAL SECURITY ANALYST
== END 2022-01-16 08:07 | disposition home or self-care (01) ==
LOC: CHSIMG 08:08
PROVIDERS: PCP Family Medicine; Visit Provider Family Medicine
DX: R10.9 Unspecified abdominal pain (principal)
CPT/HCPCS: 76705

== ENCOUNTER 2022-04-02 11:21 | Outpatient (NON) | payer OTHER, SELFPAY | END 2022-04-02 11:22 | disposition home or self-care (01) | LOC: CHSLAB 11:22 | PROVIDERS: Visit Provider Nurse Practitioner Family | DX: N89.8 Other specified noninflammatory disorders of vagina (principal) | CPT/HCPCS: 87070; 87147; 87491; 87591; 87624; 88175; G0145 ==

== ENCOUNTER 2022-07-29 11:06 | Emergency (ER) | payer OTHER, SELFPAY ==
--- NOTE | ~2022-07-29 | XR_ITS ---
EXAMINATION: XR finger 5th LT min 2V DATE: 07/29/2022 13:05 INDICATION: Left hand fifth digit dislocation status post reduction. TECHNIQUE: 3 views of left hand fifth digit were obtained. COMPARISON: Left hand fifth digit radiographs 07/29/2022 at 11:45 AM FINDINGS: There is hyperextension of fifth distal interphalangeal joint. No fracture. Joint spaces ar e normal. There is soft tissue swelling of fifth digit. A splint is noted. IMPRESSION: 1. No fracture. Reviewed, dictated and finalized at location L. IMPRESSION: 1. No fracture.
--- NOTE | ~2022-07-29 | XR_ITS ---
EXAMINATION: XR finger 5th LT min 2V DATE: 07/29/2022 11:47 INDICATION: Left hand fifth digit injury and swelling. TECHNIQUE: 4 views of left hand fifth digit were obtained. COMPARISON: None. FINDINGS: There is palmar dislocation of fifth middle phalanx with respect to the proximal phalanx. N o fracture. Other joint spaces are normal. IMPRESSION: 1. Dislocation of fifth proximal interphalangeal joint. Reviewed, dictated and finalized at location L.
--- NOTE | 2022-07-29 11:15 | PC.NURSE ---
PT IN RESTROOM WHEN NAME CALLED FOR TRIAGE
--- NOTE | 2022-07-29 11:20 | PC.NURSE ---
PT WENT OUTSIDE BEFORE OPPORTUNITY TO TRIAGE
[2022-07-29 11:27] VITALS: BP 160/80; PULSE 110; RESP 18; TEMP 36.4; O2SAT 98
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
[2022-07-29] MEDS: HYDROcodone/acetaminophen (*CRX) 7.5-325 MG TABLET 1 TAB PO (12:45)
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
--- NOTE | 2022-07-29 14:42 | PC.NURSE ---
[facility] PD at bedside at this time.
[2022-07-29 15:15] VITALS: BP 152/72; PULSE 100; RESP 18; O2SAT 99
== END 2022-07-29 15:17 | disposition home or self-care (01) ==
PROVIDERS: Emergency Provider Physician Assistant; PCP Family Medicine
DX: S63.287A Dislocation of proximal interphalangeal joint of left little finger, initial encounter (principal); F17.210 Nicotine dependence, cigarettes, uncomplicated; Y04.8XXA Assault by other bodily force, initial encounter
CPT/HCPCS: 26770; 73140; 99285; A9270

== ENCOUNTER 2022-08-14 12:38 | Emergency (ER) | payer OTHER, SELFPAY ==
--- NOTE | ~2022-08-14 | XR_ITS ---
EXAMINATION: XR finger 5th LT min 2V DATE: 08/14/2022 13:40 INDICATION: Left hand fifth digit dislocation status post reduction. TECHNIQUE: A single view of left hand fifth digit was obtained. COMPARISON: Left hand fifth digit radiographs 08/14/2022 FINDINGS: There is persistent palmar dislocation of fifth middle phalanx with respect to the proximal phalanx. No fracture. Other joint spaces are normal. IMPRESSION: 1. Persistent dislocation of fifth proximal interphalangeal joint. Reviewed, dictated and finalized at location A.
--- NOTE | ~2022-08-14 | XR_ITS ---
XR finger 5th LT min 2V 08/14/2022 13:11 Indication: Left fifth finger injury. Recent dislocation. Procedure: 3 views left fifth finger Comparison: 07/29/2022 Findings: There is palmar dislocation of the left fifth finger at the proximal interphalangeal joint. No fracture is identified. No foreign bodies. Mild soft tissue swelling. Impression: 1: Palmar dislocation of the left fifth finger at the proximal interphalangeal joint. Reviewed, dictated and finalized at location L. Impression: 1: Palmar dislocation of the left fifth finger at the proximal interphalangeal joint.
[2022-08-14 12:38] VITALS: BP 151/102; PULSE 109; RESP 20; TEMP 36.8; O2SAT 99
[2022-08-14 12:52] VITALS: BP 151/102; PULSE 109; RESP 20; TEMP 36.8; O2SAT 99
[2022-08-14] MEDS: ALPRAZolam (*CRX) 0.5 MG TABLET PO (13:13)
[2022-08-14] MEDS: KETOROLAC (*BKC) 60 MG/2 ML VIAL IM (13:14)
--- NOTE | 2022-08-14 13:28 | ED.UPPEXIN ---
HPI - Extremity Injury (Upper) General Chief Complaint: Extremity Injury, Upper Stated Complaint: left pinky pain/dislocation Time Seen by Provider: 08/14/22 12:54 Source: patient Mode of arrival: ambulatory Limitations: no limitations History of Present Illness HPI narrative: this is a 42-year-old female that he has some left 5th finger dislocation this occurred approximately 1 month ago and was seen in ER on the 29 of July and had her dislocated left 5th finger reduced and according to patient she believes that she took the splint off too soon and did not follow with her primary care physician and subsequently reverted back to dislocated left 5th finger. There is pain and discomfort with palpation and movement with swelling of the proximal aspect of her left 5th finger. complaint: injury to: left Onset (ago): week(s) Other Extremity Injury: Left: fingers ( 5th finger dislocated) Other injuries: none Handedness: right Place: home Severity: moderate Related Data Allergies Allergy/AdvReac Type Severity Reaction Status Date / Time latex Allergy Intermediate Unknown Verified 08/14/22 12:48 Penicillins Allergy Intermediate Unknown Verified 08/14/22 12:48 propoxyphene [Darvocet-N 100] Allergy Intermediate Unknown Verified 08/14/22 12:48 Review of Systems Review of Systems: All systems reviewed & are unremarkable except as noted in HPI and below PMFSH Past Medical History Medical History Abdominal pain ADHD Bipolar disorder Depression Diabetic peripheral neuropathy RAJ (generalized anxiety disorder) Hyperlipidemia associated with type 2 diabetes mellitus Hypertension associated with diabetes Methamphetamine abuse Nicotine dependence Obesity Schizophrenia Tobacco dependence Type 2 diabetes mellitus Vitamin D deficiency Surgical History Surgical History History of bilateral tubal ligation (~2009) Hx of tonsillectomy (~1994) Status post open reduction with internal fixation of fracture (~2002) Right ankle fracture with subsequent removal hardware 4 years later Family History Family History Mother Ovarian cancer Diabetes mellitus Multiple sclerosis Grandparent Ovarian cancer Father Heart disease Leukemia Social History Social History Social History: She has smoked as much as 2 packs of cigarettes per day. She started smoking when she was 18. She is down to 1 pack of cigarettes per day. She does not drink any alcohol. She smokes marijuana daily. She has smoked and snorted methamphetamines for the last 7 years. She denies any other illicit substance use. She lives with her significant other. She has 9 cats and 3 dogs at home. She has a pit bull, husky and hound dog. Smoking packs per day: 1.5 Smoking cigarettes per day: 30.0 Years smoked: 23 Smoking pack-years: 34.50 Smoking status: Current every day smoker Tobacco type: cigarettes Additional smoking assessment comments: Patient stated she use to smoke 2 packs a day Alcohol intake: never Substance use: current Substance use type: marijuana, crack/cocaine, painkillers and prescription drug Last use: 10/06/2021 marijuana, meth 10/02/2021 Lack of Transportation: YES Lack of Food: Sometimes True Current Housing: I Have Housing Concerned About Future Housing: Decline to Answer Difficulty Paying Gas/Electric Bills: YES Difficulty Paying for Meds: No Currently Unemployed: No Education: High School Diploma/GED Difficulty w/ Childcare or Family Care: No Additional living arrangements comments: Lives with her significant other. Additional occupation/education comments: On disability. Spiritual care concerns: No Exam Const: General: healthy appearing Nutritional Appearance: well no
--- NOTE | 2022-08-14 13:43 | PC.NURSE ---
ERP COMPLETED A LOCAL INJECTION AND REDUCED LEFT PINKY FINGER, IT WAS PLACED IN A METAL SPLINT PER TECH.
--- NOTE | 2022-08-14 13:44 | PC.NURSE ---
GOOD CAP REFILL NOTED POST SPLINT APPLICATION.
[2022-08-14 13:50] VITALS: BP 148/98; PULSE 78; RESP 18; O2SAT 98
--- NOTE | 2022-08-14 14:06 | PC.NURSE ---
PT DECLINE THE LOCAL INJECTION, FINGER WAS REDUCED WITHOUT LIDOCAINE.
--- NOTE | 2022-08-14 14:12 | PC.NURSE ---
pt spoke with women's counselor prior to dc
== END 2022-08-14 13:50 | disposition home or self-care (01) ==
PROVIDERS: Emergency Provider Emergency Medicine; PCP Family Medicine
DX: S63.257D Unspecified dislocation of left little finger, subsequent encounter (principal); E11.9 Type 2 diabetes mellitus without complications; E78.5 Hyperlipidemia, unspecified; I10 Essential (primary) hypertension; F17.210 Nicotine dependence, cigarettes, uncomplicated; X58.XXXD Exposure to other specified factors, subsequent encounter
CPT/HCPCS: 26770; 73140; 96372; 99285; A9270; J1885

== ENCOUNTER 2022-10-11 03:34 | Emergency (ER) | payer OTHER, SELFPAY ==
[2022-10-11 03:41] LABS: Glucose Point of Care 122 mg/dl (65-105)
[2022-10-11 03:42] VITALS: BP 142/126; PULSE 65; RESP 18; TEMP 36.6; O2SAT 98
--- NOTE | 2022-10-11 03:45 | PC.NURSE ---
Pt reports that she just wanted her BS checked. Pt's BS was checked and it was 122. MD went in to see patient and then she walked. This nurse attempting to stop pt and ask more questions but she continued to walk away.
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
== END 2022-10-11 03:51 | disposition left against medical advice (07) ==
LOC: CHSED 03:47
PROVIDERS: Emergency Provider Emergency Medicine; PCP Family Medicine
DX: Z00.8 Encounter for other general examination (principal); F15.10 Other stimulant abuse, uncomplicated; E11.9 Type 2 diabetes mellitus without complications; E78.5 Hyperlipidemia, unspecified; I10 Essential (primary) hypertension; F17.210 Nicotine dependence, cigarettes, uncomplicated
CPT/HCPCS: 82948; 99283

== ENCOUNTER 2022-10-19 06:50 | Emergency (ER) | payer OTHER, SELFPAY ==
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
[2022-10-19 07:05] VITALS: BP 102/89; PULSE 96; RESP 19; TEMP 37.1; O2SAT 100
[2022-10-19 07:13] LABS: Glucose Point of Care 133 mg/dl (65-105)
[2022-10-19 07:16] VITALS: BP 102/89; PULSE 96; RESP 19; TEMP 37.1; O2SAT 100
--- NOTE | 2022-10-19 07:21 | ECG_ITS ---
Measurements Intervals [place] Rate: 94 P: 60 [place]: 156 QRS: -6 QRSD: 93 T: 12 QT: 359 QTc: 449 Interpretive Statements SINUS RHYTHM WITHIN NORMAL LIMITS COMPARED TO ECG 10/07/2021 14:06:52 NO SIGNIFICANT CHANGES Electronically Signed On 10-20-2022 7:37:33 CDT by Harpal Benedict M.D.
[2022-10-19 07:49] LABS: Basophils Absolute Auto 0.05 K/mm3 (0.00-0.10); Basophils Percent Auto 0.5 % (0.0-1.0); Eosinophils Absolute Auto 0.14 K/mm3 (0.02-0.50); Eosinophils Percent Auto 1.5 % (1.0-6.0); Hematocrit 41.4 % (35.0-49.0); Hemoglobin 13.8 g/dL (12.0-15.0); Immature Granulocyte Absolute 0.04 K/mm3 (0.00-0.00); Immature Granulocyte Percent A 0.4 % (0.0-0.0); Lymphocytes Absolute Auto 2.46 K/mm3 (1.10-4.50); Lymphocytes Percent Auto 26.9 % (18.0-42.0); Mean Corpuscular HGB Conc 33.3 g/dL (32.0-36.0); Mean Corpuscular Hemoglobin 28.3 pg (27.0-31.0); Mean Corpuscular Volume 84.8 fL (78.0-102.0); Mean Platelet Volume 9.2 fl (9.2-11.8); Monocytes Absolute Auto 0.89 K/mm3 (0.10-0.90); Monocytes Percent Auto 9.7 % (2.0-11.0); Neutrophils Absolute Auto 5.6 K/mm3 (1.7-7.2); Platelet Count Result 390 K/mm3 (150-420); Red Blood Count 4.88 M/mm3 (4.20-5.40); Red Cell Distribution Width 13.2 % (11.6-14.4); White Blood Count 9.1 K/mm3 (4.8-10.8)
[2022-10-19 08:07] LABS: Amphetamine Screen Urine Positive (Negative); Barbiturate Screen Urine Negative (Negative); Benzodiazepines Screen Urine Negative (Negative); Cannabinoid Screen Urine Positive (Negative); Cocaine Screen Urine Negative (Negative); Methadone Screen Urine Negative (Negative); Opiate Screen Urine Negative (Negative); Phencyclidine Screen Urine Negative (Negative)
[2022-10-19 08:13] LABS: Bilirubin Urine Negative (Negative); Blood Urine Negative (Negative); Color Urine Light Yellow (Yellow); Glucose Urine UA 2+ (Negative); Ketones Urine Negative (Negative); Leukocyte Esterase Ur Negative LEU/UL (Negative); Nitrate Urine Negative (Negative); Protein Urine Negative (Negative); Urobilinogen Urine 0.2 mg/dL (0.2-1.0)
[2022-10-19 08:20] LABS: Alanine Aminotransferase 17 U/L (14-59); Albumin Level 3.6 g/dL (3.4-5.0); Alkaline Phosphatase 66 U/L (46-116); Anion Gap 7 mmol/L (8-16); Aspartate Amino Transferase 12 U/L (15-37); Bilirubin,Total 0.3 mg/dL (0.00-1.00); Blood Urea Nitrogen 12 mg/dL (7-18); Calcium 9.3 mg/dL (8.5-10.1); Carbon Dioxide 30 mmol/L (21-32); Chloride 100 mmol/L (98-108); Estimated CRCL calculation 99 ml/min; Estimated Glomerular Filt Rate > 60; Glucose 127 mg/dL (70-99); Osmolality Calculated 285 mOsm/kg (285-295); Potassium 4.2 mmol/L (3.5-5.1); Sodium 137 mmol/L (136-145); Total Protein 7.5 g/dL (6.4-8.2)
[2022-10-19 08:25] LABS: Add Urine Microscopic? YES; Amorphous Sediment Urine Moderate; Appearance Urine Cloudy (Clear); Squamous Epithelial Cell Urine Moderate /hpf (Few)
[2022-10-19 08:27] LABS: Pregnancy On Board Control Positive; Urine Pregnancy Test Negative
[2022-10-19 08:30] LABS: Ethanol < 3 mg/dL (0-6)
[2022-10-19 08:45] VITALS: BP 110/81; PULSE 94; RESP 17; TEMP 36.9; O2SAT 100
== END 2022-10-19 08:45 | disposition home or self-care (01) ==
PROVIDERS: Emergency Provider Family Medicine; PCP Family Medicine
DX: E11.9 Type 2 diabetes mellitus without complications (principal); F19.10 Other psychoactive substance abuse, uncomplicated; F20.9 Schizophrenia, unspecified; K86.1 Other chronic pancreatitis; I10 Essential (primary) hypertension; F41.1 Generalized anxiety disorder; Z79.84 Long term (current) use of oral hypoglycemic drugs; Z79.899 Other long term (current) drug therapy; Z79.891 Long term (current) use of opiate analgesic; F17.210 Nicotine dependence, cigarettes, uncomplicated
CPT/HCPCS: 36415; 80053; 80307; 81001; 81025; 82948; 85025; 93005; 99283

== ENCOUNTER 2022-12-08 20:34 | Emergency (ER) | payer OTHER, SELFPAY ==
--- NOTE | 2022-12-08 20:36 | ED.GENADULT ---
HPI - General Adult General Chief complaint: Unspecified Stated complaint: Drug Use Source: family (significant other) Mode of arrival: ambulatory Limitations: clinical condition and intoxication History of Present Illness HPI narrative: 42 year old female is brought to the Emergency Department by significant other. Patient unable to give any history. She is flailing around on stretcher and screaming. Her partner states she has been doing this all day. Significant other states she uses whatever drugs she can get her hands on. States she has been using methamphetamine. She uses marijuana daily. Has used crack cocaine in past. History of schizophrenia. Onset (ago): hour(s) (all day) Relieving factors: none Treatments prior to arrival: none Related Data Allergies Allergy/AdvReac Type Severity Reaction Status Date / Time latex Allergy Intermediate Unknown Verified 10/30/22 07:17 Penicillins Allergy Intermediate Unknown Verified 10/30/22 07:17 propoxyphene [Darvocet-N 100] Allergy Intermediate Unknown Verified 10/30/22 07:17 Review of Systems Review of Systems: ROS unobtainable: Yes unobtainable due to medical condition and unobtainable due to mental status PMFSH Past Medical History Medical History Abdominal pain ADHD Bipolar disorder Depression Diabetic peripheral neuropathy RAJ (generalized anxiety disorder) Hyperlipidemia associated with type 2 diabetes mellitus Hypertension associated with diabetes Methamphetamine abuse Nicotine dependence Obesity Schizophrenia Tobacco dependence Type 2 diabetes mellitus Vitamin D deficiency Surgical History Surgical History History of bilateral tubal ligation (~2009) Hx of tonsillectomy (~1994) Status post open reduction with internal fixation of fracture (~2002) Right ankle fracture with subsequent removal hardware 4 years later Family History Family History Mother Ovarian cancer Diabetes mellitus Multiple sclerosis Grandparent Ovarian cancer Father Heart disease Leukemia Social History Social History Social History: She has smoked as much as 2 packs of cigarettes per day. She started smoking when she was 18. She is down to 1 pack of cigarettes per day. She does not drink any alcohol. She smokes marijuana daily. She has smoked and snorted methamphetamines for the last 7 years. She denies any other illicit substance use. She lives with her significant other. She has 9 cats and 3 dogs at home. She has a pit bull, husky and hound dog. Smoking packs per day: 1.5 Smoking cigarettes per day: 30.0 Years smoked: 23 Smoking pack-years: 34.50 Smoking status: Current every day smoker Tobacco type: cigarettes Additional smoking assessment comments: Patient stated she use to smoke 2 packs a day Alcohol intake: never Substance use: current Substance use type: unknown Last use: 10/06/2021 marijuana, meth 10/10/2022 Lack of Transportation: YES Lack of Food: Sometimes True Current Housing: I Have Housing Concerned About Future Housing: Decline to Answer Difficulty Paying Gas/Electric Bills: YES Difficulty Paying for Meds: No Currently Unemployed: No Education: High School Diploma/GED Difficulty w/ Childcare or Family Care: No Additional living arrangements comments: Lives with her significant other. Additional occupation/education comments: On disability. Spiritual care concerns: No Exam Const: General: acute distress, anxious, confusion, intoxicated appearing, poor hygiene and overweight Orientation/consciousness: confusion Limitations: behavioral limitations HENMT: Head: normal to inspection, normocephalic and atraumatic Ears: hearing grossly normal bilaterally Face/Nose/Sinus: Normal roll up helper
[2022-12-08 20:44] VITALS: BP 133/91; PULSE 146; O2SAT 94
[2022-12-08] MEDS: diphenhydrAMINE HCl INJ 50 MG/ML VIAL 100 MG IM (20:50)
[2022-12-08] MEDS: OLANZapine 10 MG, WATER, STERILE FOR INJECTION 2.1 ML IM (20:55)
--- NOTE | 2022-12-08 21:25 | PC.NURSE ---
Pt still having uncontrollable flailing and hitting herself, unsafe and unable to relax. Pt keeps screaming nonsensicle words and unable to control herself, she keeps stating stop it, stop me . Orders obtained to try Ketamine IM.
[2022-12-08] MEDS: KETAMINE HCL (*CRX) 500 MG/10 ML VIAL 100 MG IM (21:29)
[2022-12-08 21:55] LABS: Basophils Absolute Auto 0.07 K/mm3 (0.00-0.10); Basophils Percent Auto 0.4 % (0.0-1.0); Eosinophils Absolute Auto 0.08 K/mm3 (0.02-0.50); Eosinophils Percent Auto 0.4 % (1.0-6.0); Hematocrit 48.5 % (35.0-49.0); Hemoglobin 16.4 g/dL (12.0-15.0); Immature Granulocyte Absolute 0.08 K/mm3 (0.00-0.00); Immature Granulocyte Percent A 0.4 % (0.0-0.0); Lymphocytes Absolute Auto 3.84 K/mm3 (1.10-4.50); Lymphocytes Percent Auto 20.8 % (18.0-42.0); Mean Corpuscular HGB Conc 33.8 g/dL (32.0-36.0); Mean Corpuscular Hemoglobin 28.7 pg (27.0-31.0); Mean Corpuscular Volume 84.8 fL (78.0-102.0); Mean Platelet Volume 9.9 fl (9.2-11.8); Monocytes Absolute Auto 1.08 K/mm3 (0.10-0.90); Monocytes Percent Auto 5.8 % (2.0-11.0); Neutrophils Absolute Auto 13.3 K/mm3 (1.7-7.2); Neutrophils Percent Auto 72.2 % (50.0-70.0); Platelet Count Result 476 K/mm3 (150-420); Red Blood Count 5.72 M/mm3 (4.20-5.40); Red Cell Distribution Width 13.6 % (11.6-14.4); White Blood Count 18.5 K/mm3 (4.8-10.8)
[2022-12-08] MEDS: KETAMINE HCL (*CRX) 500 MG/10 ML VIAL 100 MG IV PUSH (21:59)
[2022-12-08 22:09] VITALS: BP 126/94; PULSE 102; RESP 18; O2SAT 99
[2022-12-08 22:11] LABS: Alanine Aminotransferase 28 U/L (14-59); Albumin Level 4.2 g/dL (3.4-5.0); Alkaline Phosphatase 72 U/L (46-116); Anion Gap 13 mmol/L (8-16); Aspartate Amino Transferase 32 U/L (15-37); Bilirubin,Total 0.6 mg/dL (0.00-1.00); Blood Urea Nitrogen 17 mg/dL (7-18); Calcium 10.3 mg/dL (8.5-10.1); Carbon Dioxide 24 mmol/L (21-32); Chloride 99 mmol/L (98-108); Estimated CRCL calculation 94 ml/min; Estimated Glomerular Filt Rate > 60; Glucose 94 mg/dL (70-99); Osmolality Calculated 283 mOsm/kg (285-295); Potassium 4.7 mmol/L (3.5-5.1); Sodium 136 mmol/L (136-145)
--- NOTE | 2022-12-08 22:11 | PC.NURSE ---
Pt now sleeping p IV Ketamine given, pt repositioned in bed c HOB elevated, NC O2 applied at 3L, pt noted rr even and nonlabored, SR on monitor. Pt being observed.
[2022-12-08] MEDS: SODIUM CHLORIDE 0.9% IV 1,000 ML 999 ML IV CONT (22:17)
[2022-12-08 22:33] VITALS: BP 116/81; PULSE 99; RESP 18; O2SAT 100
--- NOTE | 2022-12-08 22:57 | PC.NURSE ---
Pt awakening and starting to kick and fidgit in bed. She is able to tell this RN that she doesn't want a catheter put in because they hurt and is refusing it. When asked what brought her in here she states she was using meth. Then she will start to flail and writhe in bed and speak out of control. She is able to be redirected at times. She will attempt to follow commands when asked. VSS, continuing to monitor.
--- NOTE | 2022-12-08 23:06 | PC.NURSE ---
Pt asking for Owen her old man . Pts s.o. brought to room and he states she was sober for a while and then relapsed using meth again and hasn't slept for 3 nights. Pt able to answer some questions appropriately, continuing to monitor. Pt rolled to side, talking to herself constantly, wanting to sleep but unable to totally relax.
--- NOTE | 2022-12-08 23:15 | PC.NURSE ---
Pts s.o. left for home, # received to call him if and when she is d/c home. Pt lying on her side and trying to sleep, continuing to monitor. She tolk her O2 off, not wanting it on anymore. VSS at this time.
[2022-12-08 23:21] VITALS: BP 117/74; PULSE 105; RESP 20; O2SAT 99
[2022-12-08 23:29] VITALS: BP 103/66; PULSE 105; RESP 20; O2SAT 97
--- NOTE | 2022-12-09 00:06 | PC.NURSE ---
Pt resting somewhat more comfortably, able to rest c eyes closed, continuing to monitor, VSS. Monitor shows NSR.
[2022-12-09 00:50] VITALS: BP 104/57; PULSE 102; RESP 18; O2SAT 97
--- NOTE | 2022-12-09 01:27 | PC.NURSE ---
Pt restless in bed, continues to talk to herself, quiets for a few minutes and tries to sleep, then awake and restless again. Pt given sips of water and juice, encouraged to relax and try to sleep. VSS, continuing to monitor.
--- NOTE | 2022-12-09 02:05 | PC.NURSE ---
Pt up to BSC and urinated, she is steady on feet at this time, then back to bed. She is asking for more drinks and food. Pt given juice and water and sandwich.
[2022-12-09 02:11] VITALS: BP 110/65; PULSE 108; RESP 18; O2SAT 97
[2022-12-09 02:11] LABS: Appearance Urine Clear (Clear); Bilirubin Urine Negative (Negative); Blood Urine Negative (Negative); Color Urine Yellow (Yellow); Glucose Urine UA 3+ (Negative); Ketones Urine 1+ (Negative); Leukocyte Esterase Ur Trace (Negative); Nitrate Urine Negative (Negative); Protein Urine Trace (Negative); Specific Grav Ur 1.025 (1.010-1.020); Urobilinogen Urine 0.2 mg/dL (0.2-1.0)
--- NOTE | 2022-12-09 02:12 | PC.NURSE ---
Pt ate food quickly, then wanted lights turned out to try to sleep. VSS, blankets given.
[2022-12-09 02:16] LABS: Add Urine Microscopic? YES; RBC Urine 0-2 /hpf (0-2)
[2022-12-09 02:17] LABS: Bacteria Urine 3+ /hpf; Squamous Epithelial Cell Urine Many /hpf (Few)
[2022-12-09 02:19] LABS: Amphetamine Screen Urine Positive (Negative); Barbiturate Screen Urine Negative (Negative); Benzodiazepines Screen Urine Negative (Negative); Cannabinoid Screen Urine Positive (Negative); Cocaine Screen Urine Negative (Negative); Methadone Screen Urine Negative (Negative); Opiate Screen Urine Negative (Negative); Phencyclidine Screen Urine Negative (Negative)
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
[2022-12-09] MEDS: LORazepam INJ (*CRX) 2 MG/ML VIAL IV PUSH (02:47)
[2022-12-09] MEDS: SODIUM CHLORIDE 0.9% IV 1,000 ML 999 ML IV CONT (02:48)
--- NOTE | 2022-12-09 02:51 | PC.NURSE ---
Pt has elated mood, nonstop talking at this time, unable to relax again. Pt given meds as per order and water and diet soda per request. Lights dimmed, call franco at side.
--- NOTE | 2022-12-09 03:35 | PC.NURSE ---
Pt up ambulatory in room and wanting to go home. She wants to speak c ERP again and wants info on drug and abuse programs. Pamphlets and instructions given for o/p resources to call and f/u with. Pts valerio Todd called for ride home.
[2022-12-09 03:41] VITALS: BP 117/68; PULSE 100; RESP 20; O2SAT 97
--- NOTE | 2022-12-09 03:45 | PC.NURSE ---
Pt ambulated steadily from ER to WR to await ride from s.o.
== END 2022-12-09 03:48 | disposition home or self-care (01) ==
PROVIDERS: Emergency Provider Emergency Medicine; PCP Family Medicine
DX: F15.10 Other stimulant abuse, uncomplicated (principal); I10 Essential (primary) hypertension; E78.5 Hyperlipidemia, unspecified; E11.9 Type 2 diabetes mellitus without complications; F20.9 Schizophrenia, unspecified; F90.9 Attention-deficit hyperactivity disorder, unspecified type; F31.9 Bipolar disorder, unspecified; F41.1 Generalized anxiety disorder; F17.210 Nicotine dependence, cigarettes, uncomplicated; F12.90 Cannabis use, unspecified, uncomplicated
CPT/HCPCS: 36415; 80053; 80307; 81001; 85025; 96361; 96372; 96374; 96375; 99284; J1200; J2060; J2359; J7030

== ENCOUNTER 2022-12-29 12:33 | Emergency (ER) | payer OTHER, SELFPAY ==
[2022-12-29 12:33] VITALS: BP 113/73; PULSE 98; RESP 20; TEMP 36.4; O2SAT 100
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
[2022-12-29] MEDS: diazePAM (*CRX) 5 MG TABLET PO (13:25)
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
--- NOTE | 2022-12-29 14:15 | PC.NURSE ---
PT REQUESTING HOMELESS AND DOMESTIC ABUSE INFORMATION. MULTIPLE RESOURCES WERE PROVIDED. PT IS ASKING IF SIG OTHER IS STILL OUTSIDE, THAT SHE IS READY TO GO HOME AND FEELS SAFE LEAVING WITH HIM. ERP IS NOTIFIED. PT AMBULATORY TO WITHOUT DIFFICULTY, DIET SODA PROVIDED REQUESTED. PT CONTINUES TO DENY SI OR HI, DENIES HALLUCINATIONS, AND REFUSES MENTAL EVALUATION AT THIS TIME. PT IS A & O X4 AT THIS TIME.
[2022-12-29 14:20] VITALS: BP 114/80; PULSE 88; RESP 18; O2SAT 98
== END 2022-12-29 14:20 | disposition home or self-care (01) ==
PROVIDERS: Emergency Provider Emergency Medicine; PCP Family Medicine
DX: F15.10 Other stimulant abuse, uncomplicated (principal); E78.5 Hyperlipidemia, unspecified; E11.9 Type 2 diabetes mellitus without complications; I10 Essential (primary) hypertension; F17.210 Nicotine dependence, cigarettes, uncomplicated; Z79.899 Other long term (current) drug therapy
CPT/HCPCS: 99283; A9270

== ENCOUNTER 2023-03-03 04:11 | Emergency (ER) | payer OTHER, SELFPAY ==
[2023-03-03 04:27] VITALS: BP 144/90; PULSE 96; RESP 18; TEMP 36.6; O2SAT 99
[2023-03-03] MEDS: ALPRAZolam (*CRX) 0.5 MG TABLET 1 MG PO (04:35)
--- NOTE | 2023-03-03 05:11 | ED.ANXIETY ---
HPI - Anxiety General Chief Complaint: Anxiety Stated Complaint: anxiety attack Source: patient Mode of arrival: ambulatory Limitations: no limitations History of Present Illness HPI narrative: Patient is a 42-year-old female with anxiety. She is here with her anxiety attack and out of her Xanax. patient has a history of meth use. complaint: anxiety Onset (ago): day(s) Symptoms: extremity numbness/tingling, perioral numbness/tingling and muscle cramps Severity: severe Quality: constant Place: home History of similar episodes: Yes Provoking factors: emotional stress and other ( Patient out of her Xanax) Relieving factors: medication Exacerbating factors: thinking about event Associated symptoms: denies other symptoms Related Data Allergies Allergy/AdvReac Type Severity Reaction Status Date / Time latex Allergy Intermediate Unknown Verified 01/20/23 07:33 Penicillins Allergy Intermediate Unknown Verified 01/20/23 07:33 propoxyphene [Darvocet-N 100] Allergy Intermediate Unknown Verified 01/20/23 07:33 Review of Systems Review of Systems: All systems reviewed & are unremarkable except as noted in HPI and below Constitutional: Constitutional: Reports no additional constitutional complaints Eyes: Eyes: Reports no additional eye complaints ENT: Reports system reviewed and no additional complaints, except as documented Cardiovascular: Cardiovascular: Reports no additional cardiovascular complaints Respiratory: Respiratory: Reports no additional respiratory complaints Gastrointestinal: Gastrointestinal: Reports no additional gastrointestinal complaints Genitourinary: Genitourinary: Reports no additional female genitourinary complaints Musculoskeletal: Musculoskeletal: Reports no additional musculoskeletal complaints Integumentary/Breasts: Skin/Breast: Reports system reviewed and no additional complaints, except as docu Neurologic: Reports system reviewed and no additional complaints, except as documented Psychiatric: Psychiatric: Reports no additional psychiatric complaints Endocrine: Endocrine: Reports no additional endocrine complaints Hematologic/Lymphatic: Hematologic/Lymphatic: Reports no additional hematologic/lymphatic complaints Allergic/Immunologic: Allergic/Immunologic: Reports no additional allergic/immunologic complaints PMFSH Past Medical History Medical History Abdominal pain ADHD Bipolar disorder Depression Diabetic peripheral neuropathy RAJ (generalized anxiety disorder) Hyperlipidemia associated with type 2 diabetes mellitus Hypertension associated with diabetes Methamphetamine abuse Nicotine dependence Obesity Schizophrenia Tobacco dependence Type 2 diabetes mellitus Vitamin D deficiency Surgical History Surgical History History of bilateral tubal ligation (~2009) Hx of tonsillectomy (~1994) Status post open reduction with internal fixation of fracture (~2002) Right ankle fracture with subsequent removal hardware 4 years later Family History Family History Mother Ovarian cancer Diabetes mellitus Multiple sclerosis Grandparent Ovarian cancer Father Heart disease Leukemia Social History Social History Social History: She has smoked as much as 2 packs of cigarettes per day. She started smoking when she was 18. She is down to 1 pack of cigarettes per day. She does not drink any alcohol. She smokes marijuana daily. She has smoked and snorted methamphetamines for the last 7 years. She denies any other illicit substance use. She lives with her significant other. She has 9 cats and 3 dogs at home. She has a pit bull, husky and hound dog. Smoking packs per day: 1.5 Smoking cigarettes per day: 30.0 Years smoked: 23 Smoking pack-years: 34.50
[2023-03-03 05:23] VITALS: BP 132/79; PULSE 78; RESP 18; TEMP 36.6; O2SAT 99
== END 2023-03-03 05:27 | disposition home or self-care (01) ==
PROVIDERS: Emergency Provider Emergency Medicine; PCP Family Medicine; Referring Provider Family Medicine
DX: F41.9 Anxiety disorder, unspecified (principal); E78.5 Hyperlipidemia, unspecified; E11.9 Type 2 diabetes mellitus without complications; I10 Essential (primary) hypertension; F17.210 Nicotine dependence, cigarettes, uncomplicated
CPT/HCPCS: 99283; A9270

== ENCOUNTER 2023-04-16 07:21 | Emergency (ER) | payer OTHER, SELFPAY ==
[2023-04-16 07:21] VITALS: BP 123/96; PULSE 86; RESP 20; TEMP 36.1; O2SAT 98
[2023-04-16 07:51] LABS: Appearance Urine Cloudy (Clear); Bilirubin Urine Negative (Negative); Blood Urine 3+ (Negative); Glucose Urine UA 3+ (Negative); Ketones Urine Negative (Negative); Leukocyte Esterase Ur Negative LEU/UL (Negative); Nitrate Urine Negative (Negative); Protein Urine 1+ (Negative); Specific Grav Ur 1.015 (1.010-1.020); Urobilinogen Urine 0.2 mg/dL (0.2-1.0)
[2023-04-16 07:54] LABS: Basophils Absolute Auto 0.05 K/mm3 (0.00-0.10); Basophils Percent Auto 0.5 % (0.0-1.0); Eosinophils Absolute Auto 0.11 K/mm3 (0.02-0.50); Eosinophils Percent Auto 1.1 % (1.0-6.0); Hematocrit 42.3 % (35.0-49.0); Immature Granulocyte Absolute 0.03 K/mm3 (0.00-0.00); Immature Granulocyte Percent A 0.3 % (0.0-0.0); Lymphocytes Absolute Auto 2.32 K/mm3 (1.10-4.50); Lymphocytes Percent Auto 23.8 % (18.0-42.0); Mean Corpuscular HGB Conc 33.1 g/dL (32.0-36.0); Mean Corpuscular Hemoglobin 28.1 pg (27.0-31.0); Mean Corpuscular Volume 84.9 fL (78.0-102.0); Monocytes Absolute Auto 0.41 K/mm3 (0.10-0.90); Monocytes Percent Auto 4.2 % (2.0-11.0); Neutrophils Absolute Auto 6.8 K/mm3 (1.7-7.2); Neutrophils Percent Auto 70.1 % (50.0-70.0); Platelet Count Result 412 K/mm3 (150-420); Red Blood Count 4.98 M/mm3 (4.20-5.40); Red Cell Distribution Width 12.7 % (11.6-14.4); White Blood Count 9.7 K/mm3 (4.8-10.8)
[2023-04-16 07:57] LABS: Add Urine Microscopic? YES; Color Urine Other (Yellow)
--- NOTE | 2023-04-16 07:57 | ECG_ITS ---
Measurements Intervals [place] Rate: 74 P: 59 AR: 161 QRS: 21 QRSD: 94 T: 31 QT: 391 QTc: 435 Interpretive Statements SINUS RHYTHM COMPARED TO ECG 10/19/2022 07:33:19 NO SIGNIFICANT CHANGES Electronically Signed On 04-16-2023 12:32:25 STEVEDORING SUPERVISOR by Wm Plummer M.D.
[2023-04-16 07:58] LABS: Bacteria Urine Trace /hpf; RBC Urine >100 /hpf (0-2); Squamous Epithelial Cell Urine Occasional /hpf (Few); WBC Urine None seen /hpf (0-3)
[2023-04-16 07:58] LABS: Amphetamine Screen Urine Negative (Negative); Barbiturate Screen Urine Negative (Negative); Benzodiazepines Screen Urine Negative (Negative); Cannabinoid Screen Urine Positive (Negative); Cocaine Screen Urine Negative (Negative); Methadone Screen Urine Negative (Negative); Opiate Screen Urine Negative (Negative); Phencyclidine Screen Urine Negative (Negative)
[2023-04-16] MEDS: ALPRAZolam (*CRX) 0.5 MG TABLET PO ×2 (08:05→15:52)
[2023-04-16 08:18] LABS: Alanine Aminotransferase 13 U/L (14-59); Albumin Level 3.6 g/dL (3.4-5.0); Alkaline Phosphatase 54 U/L (46-116); Anion Gap 9 mmol/L (8-16); Aspartate Amino Transferase 13 U/L (15-37); Bilirubin,Total 0.4 mg/dL (0.00-1.00); Blood Urea Nitrogen 14 mg/dL (7-18); Calcium 8.5 mg/dL (8.5-10.1); Carbon Dioxide 28 mmol/L (21-32); Chloride 100 mmol/L (98-108); Estimated CRCL calculation 130 ml/min; Estimated Glomerular Filt Rate > 60; Glucose 125 mg/dL (70-99); Osmolality Calculated 285 mOsm/kg (285-295); Potassium 3.8 mmol/L (3.5-5.1); Salicylate 2.7 mg/dL (2.8-20.0); Sodium 137 mmol/L (136-145); Thyroid Stimulating Hormone 0.96 uIU/mL (0.36-3.74); Total Protein 7.1 g/dL (6.4-8.2)
[2023-04-16 08:22] LABS: Acetaminophen < 2 ug/mL (10-30); Ethanol < 3 mg/dL (0-6)
[2023-04-16 08:29] LABS: SARS-CoV-2 RNA PCR Negative (Negative)
[2023-04-16 08:32] LABS: Influenza A QL RT-PCR Negative (Negative); Influenza B QL RT-PCR Negative (Negative); RSV RNA, RT-PCR Negative (Negative)
--- NOTE | 2023-04-16 08:40 | PC.NURSE ---
breakfast tray provided
[2023-04-16 09:05] VITALS: BP 110/74; PULSE 84; RESP 20; TEMP 36.9; O2SAT 98
--- NOTE | 2023-04-16 09:17 | PC.NURSE ---
lights out for comfort, pt sleeping.
--- NOTE | 2023-04-16 10:12 | ED.PSYCH ---
HPI - Psych General Chief Complaint: Psychiatric Symptoms Stated Complaint: suicidal ideation Time Seen by Provider: 04/17/23 08:18 Source: patient and EMS Mode of arrival: ambulatory Limitations: no limitations History of Present Illness HPI Narrative: this is a 43-year-old female known methamphetamine user has been having anxiety and issues at home with mental health depression, patient today has a severe anxiety and stated that she would be better off if she were , and she has no use to her family. Patient does not have a clear plan currently not suicidal but has stated that she would be better off . Patient does appear anxious and in distress with no abdominal pain no chest pain no fever chills. MD complaint: suicidal ideation and feels depressed Onset (ago): day(s) Duration: constant History of same: Yes Relieving factors: none Context: other Associated symptoms: denies other symptoms If self harm: admits thoughts of self harm Related Data Home Medications Medication Instructions Recorded Confirmed atenolol 50 mg tablet 50 mg PO DAILY 04/16/23 04/16/23 dapagliflozin propanediol 10 mg 10 mg PO DAILY 04/16/23 04/16/23 tablet (Farxiga) dulaglutide 1.5 mg/0.5 mL 1.5 mg subcut WEEKLY 04/16/23 04/16/23 subcutaneous pen injector ([facility]) duloxetine 60 mg capsule,delayed 120 mg PO DAILY 04/16/23 04/16/23 release gabapentin 100 mg capsule 100 mg PO DAILY 04/16/23 04/16/23 gabapentin 100 mg capsule 200 mg PO HS 04/16/23 04/16/23 metformin 1,000 mg tablet 1,000 mg PO BID 04/16/23 04/16/23 simvastatin 40 mg tablet 40 mg PO DAILY 04/16/23 04/16/23 trazodone 100 mg tablet 200 mg PO HS 04/16/23 04/16/23 ziprasidone HCl 60 mg capsule 60 mg PO DAILY 04/16/23 04/16/23 ziprasidone HCl 60 mg capsule 120 mg PO HS 04/16/23 04/16/23 Allergies Allergy/AdvReac Type Severity Reaction Status Date / Time latex Allergy Intermediate Unknown Verified 01/20/23 07:33 Penicillins Allergy Intermediate Unknown Verified 01/20/23 07:33 propoxyphene [Darvocet-N 100] Allergy Intermediate Unknown Verified 01/20/23 07:33 Review of Systems Review of Systems: All systems reviewed & are unremarkable except as noted in HPI and below PMFSH Past Medical History Medical History Abdominal pain ADHD Bipolar disorder Depression Diabetic peripheral neuropathy RAJ (generalized anxiety disorder) Hyperlipidemia associated with type 2 diabetes mellitus Hypertension associated with diabetes Methamphetamine abuse Nicotine dependence Obesity Schizophrenia Tobacco dependence Type 2 diabetes mellitus Vitamin D deficiency Surgical History Surgical History History of bilateral tubal ligation (~2009) Hx of tonsillectomy (~1994) Status post open reduction with internal fixation of fracture (~2002) Right ankle fracture with subsequent removal hardware 4 years later Family History Family History Mother Ovarian cancer Diabetes mellitus Multiple sclerosis Grandparent Ovarian cancer Father Heart disease Leukemia Social History Social History Social History: She has smoked as much as 2 packs of cigarettes per day. She started smoking when she was 18. She is down to 1 pack of cigarettes per day. She does not drink any alcohol. She smokes marijuana daily. She has smoked and snorted methamphetamines for the last 7 years. She denies any other illicit substance use. She lives with her significant other. She has 9 cats and 3 dogs at home. She has a pit bull, husky and hound dog. Smoking packs per day: 1.5 Smoking cigarettes per day: 30.0 Years smoked: 23 Smoking pack-years: 34.50 Smoking status: Current every day smoker Tobacco type: cigarettes Additional smoking assessment comments: Patient stated she use
[2023-04-16 11:04] VITALS: BP 100/60; PULSE 78; RESP 20; TEMP 36.8; O2SAT 100
--- NOTE | 2023-04-16 12:20 | PC.NURSE ---
pt resting per cot, pending placement arrangements
[2023-04-16 13:38] VITALS: BP 134/87; PULSE 84; RESP 20; O2SAT 99
[2023-04-16] MEDS: NICOTINE (*PBKC) 21 MG PATCH 1 PATCH TRANSDERM (14:33)
--- NOTE | 2023-04-16 14:35 | PC.NURSE ---
pt requested to call my man . call made. pt tearful on phone. wanting to go outside to smoke. nicotine patch applied.
[2023-04-16 15:45] VITALS: BP 120/63; PULSE 87; RESP 20; TEMP 36.8; O2SAT 94
--- NOTE | 2023-04-16 15:57 | PC.NURSE ---
update given to pt regarding placement.
--- NOTE | 2023-04-16 16:46 | PC.NURSE ---
dinner tray given to pt.
[2023-04-16 17:55] VITALS: BP 100/75; PULSE 79; RESP 18; TEMP 36.7; O2SAT 98
[2023-04-16] MEDS: ZIPRASIDONE HCL 20 MG CAPSULE 120 MG PO (18:41)
[2023-04-16] MEDS: IBUPROFEN 600 MG TABLET PO (18:44)
[2023-04-16 18:49] LABS: Glucose Point of Care 101 mg/dl (65-105)
[2023-04-16] MEDS: GABAPENTIN 100 MG CAPSULE 200 MG PO (19:06)
[2023-04-16] MEDS: traZODone HCL 50 MG TABLET 200 MG PO (19:07)
[2023-04-16] MEDS: SIMVASTATIN 10 MG TABLET 40 MG PO (19:07)
[2023-04-16] MEDS: metFORMIN HCL 500 MG TABLET 1000 MG PO (19:07)
--- NOTE | 2023-04-16 19:12 | PC.NURSE ---
report to vicki byrne. pt request night snack of ice cream. and apple juice.
--- NOTE | 2023-04-16 20:02 | PC.NURSE ---
Ted with [facility] called back to let us know that they would be able to transport the patient around 0800 tomorrow morning.
--- NOTE | 2023-04-16 20:50 | PC.NURSE ---
Nestor with [facility] called back to inform that they will be unable to transport the patient codie
--- NOTE | 2023-04-16 20:52 | PC.NURSE ---
Attempted to arrange transport through [facility] who states that they are unable to transport to [place].
--- NOTE | 2023-04-16 20:56 | PC.NURSE ---
Ted with [facility] called back to let us know that they would likely be able to send a crew at 0830 in the morning, pending availability of their staff.
--- NOTE | 2023-04-16 21:45 | PC.NURSE ---
Spoke with [facility] who states that they can transport the patient to [facility] via secure car. ED fax number provided and they will be sending us a transport request and transport agreement form which need to be filled out and sent back to them with a face sheet before they can send a truck driver heavy.
--- NOTE | 2023-04-16 22:15 | PC.NURSE ---
Transport agreement form and Transport request form received from [facility]. Per GAURAV Torres, because pt is a voluntary admit, the hospital would be responsible for payment to the service provider which has a base rate of $210 and $10 per mile. Due to transport being greater that 250 miles, we are unable to approve the charge at this time, and will await transport by [facility] in the morning.
[2023-04-17 02:00] VITALS: BP 107/66; PULSE 81; RESP 18; TEMP 36.4; O2SAT 98
[2023-04-17 06:02] VITALS: BP 117/74; PULSE 85; RESP 18; TEMP 36.2; O2SAT 99
--- NOTE | 2023-04-17 08:00 | PC.NURSE ---
0700 resumed care of pt , report from vicki byrne. pt sleeping. 0730 pt sleeping 0800 breakfast tray given to pt.
[2023-04-17] MEDS: ZIPRASIDONE HCL 20 MG CAPSULE 60 MG PO (09:07)
[2023-04-17] MEDS: EMPAGLIFLOZIN 25 MG TABLET PO (09:08)
[2023-04-17] MEDS: metFORMIN HCL 500 MG TABLET 1000 MG PO (09:08)
[2023-04-17] MEDS: GABAPENTIN 100 MG CAPSULE PO (09:08)
[2023-04-17 09:09] VITALS: PULSE 96
[2023-04-17] MEDS: atenoloL 50 MG TABLET PO (09:09)
[2023-04-17] MEDS: DULoxetine HCL 30 MG CAPSULE.DR 60 MG PO (09:10)
[2023-04-17] MEDS: ALPRAZolam (*CRX) 0.5 MG TABLET 1 MG PO (09:10)
[2023-04-17 09:12] VITALS: BP 124/76; PULSE 94; RESP 20; TEMP 36.3; O2SAT 98
--- NOTE | 2023-04-17 09:13 | PC.NURSE ---
pt ate 100% breakfast tray, now eating rice crispy cereal as requested. cooperative with all interaction
--- NOTE | 2023-04-17 10:35 | ED.GENADULT ---
HPI - General Adult General Chief complaint: Psychiatric Symptoms Stated complaint: suicidal ideation Time Seen by Provider: 04/17/23 08:18 Source: patient and EMS Mode of arrival: ambulatory Limitations: no limitations History of Present Illness HPI narrative: I TOOK OVER FROM THE PREVIOUS PROVIDER IN THE MANAGEMENT OF THIS PATIENT. PLEASE REFER TO THEIR NOTE FOR FURTHER DETAILS in brief, the patient is a 43-year-old woman who presented yesterday with suicidal ideation, depression, a history of methamphetamine use, March 29, 2023 most recently. she underwent behavioral health evaluation , after medical clearance. She has been accepted by [facility] in [place], [place], by Dr Philip. she has tolerated a diet overnight. She has remained stable. She does not have transportation to go up there as no ambulance services planning on going to [place] at present. So she stays in the emergency room. on cross examination today, the patient states that she does still want to hurt herself and feels depressed. She is getting agitated intermittently. She denies homicidal ideation. She denies auditory or visual hallucinations or delusions. She has no somatic complaints. She has received her home medications as prescribed. Related Data Home Medications Medication Instructions Recorded Confirmed atenolol 50 mg tablet 50 mg PO DAILY 04/16/23 04/16/23 dapagliflozin propanediol 10 mg 10 mg PO DAILY 04/16/23 04/16/23 tablet (Farxiga) dulaglutide 1.5 mg/0.5 mL 1.5 mg subcut WEEKLY 04/16/23 04/16/23 subcutaneous [facility] duloxetine 60 mg capsule,delayed 120 mg PO DAILY 04/16/23 04/16/23 release gabapentin 100 mg capsule 100 mg PO DAILY 04/16/23 04/16/23 gabapentin 100 mg capsule 200 mg PO HS 04/16/23 04/16/23 metformin 1,000 mg tablet 1,000 mg PO BID 04/16/23 04/16/23 simvastatin 40 mg tablet 40 mg PO DAILY 04/16/23 04/16/23 trazodone 100 mg tablet 200 mg PO HS 04/16/23 04/16/23 ziprasidone HCl 60 mg capsule 60 mg PO DAILY 04/16/23 04/16/23 ziprasidone HCl 60 mg capsule 120 mg PO HS 04/16/23 04/16/23 Allergies Allergy/AdvReac Type Severity Reaction Status Date / Time latex Allergy Intermediate Unknown Verified 01/20/23 07:33 Penicillins Allergy Intermediate Unknown Verified 01/20/23 07:33 propoxyphene [Darvocet-N 100] Allergy Intermediate Unknown Verified 01/20/23 07:33 Review of Systems Review of Systems: All systems reviewed & are unremarkable except as noted in HPI and below Constitutional: Constitutional: Denies chills, Denies excessive sweating, Denies fatigue, Denies fever(s), Denies headache(s) and Denies weakness Eyes: Eyes: Denies change in vision and Denies photophobia ENT: Denies dysphagia, Denies dizziness, Denies headache(s), Denies lip swelling, Denies nasal congestion, Denies sore throat and Denies tongue swelling Cardiovascular: Cardiovascular: Denies chest pain, Denies syncope, Denies rapid heart rate and Denies dyspnea Respiratory: Respiratory: Denies cough, Denies dyspnea and Denies wheezing Gastrointestinal: Gastrointestinal: Denies abdominal pain, Denies constipation, Denies dysphagia, Denies diarrhea, Denies nausea and Denies vomiting Genitourinary: Genitourinary: Denies hematuria, Denies urinary frequency, Denies dysuria and Denies urinary urgency Musculoskeletal: Musculoskeletal: Denies back pain, Denies myalgias, Denies arthralgias, Denies joint swelling and Denies numbness Integumentary/Breasts: Skin/Breast: Denies pruritus, Denies erythema and Denies rash Neurologic: Denies confusion, Denies dizziness, Denies syncope, Denies headache(s), Denies focal weakness, Denies numbness and Denies weakness Psychiatric: Psychiatric: Denies anxiety, Denies confusion, Reports depression and Reports suicidal ideation Endocrine: Endocrine: Denies excessive sweating and Denies fatigue Hematologic/Lymphatic: Hematologic/Lymphatic: Denies easy bleeding and Denies easy bruising Allergic/Imm
--- NOTE | 2023-04-17 10:54 | PC.NURSE ---
pt states does not feel safe going home at this time. want to continue to find placement , pt does not want to use drugs.
--- NOTE | 2023-04-17 11:20 | PC.NURSE ---
pt screaming and yelling in the hallway, states im not suicidal i just said that, i cant smoke meth here can i . explained can not make a threat to harm self with a plan of action with out reevaluation.
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
[2023-04-17 11:42] LABS: Glucose Point of Care 120 mg/dl (65-105)
--- NOTE | 2023-04-17 12:30 | PC.NURSE ---
pt resting per cot. refused hot meal, given turkey sandwich and pudding as requested.
--- NOTE | 2023-04-17 13:16 | PC.NURSE ---
pt on menstrual cycle, clean scrubs , wipes , adult brief given. offered shower. pt declined at this time. linens changed on cot and floor swept per rn.
--- NOTE | 2023-04-17 13:18 | PC.NURSE ---
michael baxter speaking with dr mejia, dr mejia in with pt. pt states im not suicidal, nor have i ever been to this investigative writer while changing linens .
--- NOTE | 2023-04-17 13:19 | PC.NURSE ---
pt to discuss safety plan with michael baxter and discharge home per dr mejia.
== END 2023-04-17 13:28 | disposition home or self-care (01) ==
PROVIDERS: Emergency Medicine; Emergency Provider Emergency Medicine; PCP Family Medicine
DX: F15.10 Other stimulant abuse, uncomplicated (principal); F32.A Depression, unspecified; F91.8 Other conduct disorders; F41.9 Anxiety disorder, unspecified; E11.9 Type 2 diabetes mellitus without complications; I10 Essential (primary) hypertension; F17.210 Nicotine dependence, cigarettes, uncomplicated; Z79.899 Other long term (current) drug therapy; Z79.84 Long term (current) use of oral hypoglycemic drugs; Z20.822 Contact with and (suspected) exposure to COVID-19
CPT/HCPCS: 36415; 80053; 80307; 81001; 82948; 84443; 85025; 87637; 93005; 99284; A9270

== ENCOUNTER 2023-04-29 16:48 | Emergency (ER) | payer OTHER, SELFPAY ==
--- NOTE | ~2023-04-29 | CT_ITS ---
EXAMINATION: CT brain wo con INDICATION: Altered mental status COMPARISON: None TECHNIQUE: Standard unenhanced head CT. The dose-length product (DLP) was 1362.00 mGy-cm. The mA was adjusted according to patient size. Iterative reconstruction technique was employed. FINDINGS: Motion artifact limits the examination. There are dense calcifications of the basal ganglia and cerebellum. No intracranial hemorrhage, acute infarction, or abnormal mass lesion. The ventricle s are normal. No abnormal mass effect or midline shift. The patton-white matter differentiation is norm al. The basal cisterns are patent. The orbits are normal. The paranasal sinuses, mastoids and calvari um are normal. IMPRESSION: 1. No acute intracranial abnormality, examination limited by motion. Reviewed, dictated and finalized at location F. ARK ADVANCED OPERATOR MAINTAINER
[2023-04-29 16:50] VITALS: BP 118/80; PULSE 108; RESP 24; TEMP 36.5; O2SAT 99
[2023-04-29 17:00] VITALS: O2SAT 99
--- NOTE | 2023-04-29 17:07 | ECG_ITS ---
Measurements Intervals [place] Rate: 91 P: 76 MA: 145 QRS: 32 QRSD: 88 T: 59 QT: 360 QTc: 444 Interpretive Statements SINUS RHYTHM COMPARED TO ECG 04/16/2023 08:02:00 NO SIGNIFICANT CHANGES Electronically Signed On 04-29-2023 19:20:01 COMMUNICATION SKILLS INSTRUCTOR by Myrtle Liu M.D.
--- NOTE | 2023-04-29 17:07 | ED.AMS ---
HPI - Altered Mental Status General Chief Complaint: Unspecified Stated Complaint: meth use Time Seen by Provider: 04/29/23 16:55 Source: EMS Mode of arrival: ambulatory Limitations: no limitations History of Present Illness HPI narrative: 43-year-old female with a history of marijuana use, smoking, hypertension, diabetes mellitus with neuropathy, dyslipidemia, bipolar, schizophrenia, methamphetamine abuse recently presented to this ER on 04/16/2023 for suicidal ideation. The patient was brought in by EMS after the family called them for -- extreme agitation. Patient is thrashing in bed and is unable to lay still. -- Patient admitted to having used amphetamine. MD complaint: altered mental status and intoxication Onset (ago): unknown Timing confirmed by: family member Severity: severe Consistency of symptoms: waxing and waning Context: drug abuse and history of similar presentation Associated symptoms: denies other symptoms Related Data Home Medications Medication Instructions Recorded Confirmed atenolol 50 mg tablet 50 mg PO DAILY 04/16/23 04/16/23 dulaglutide 1.5 mg/0.5 mL 1.5 mg subcut WEEKLY 04/16/23 04/16/23 subcutaneous pen injector (Trulicity) duloxetine 60 mg capsule,delayed 120 mg PO DAILY 04/16/23 04/16/23 release simvastatin 40 mg tablet 40 mg PO DAILY 04/16/23 04/16/23 trazodone 100 mg tablet 200 mg PO HS 04/16/23 04/16/23 ziprasidone HCl 60 mg capsule 60 mg PO DAILY 04/16/23 04/16/23 ziprasidone HCl 60 mg capsule 120 mg PO HS 04/16/23 04/16/23 Allergies Allergy/AdvReac Type Severity Reaction Status Date / Time latex Allergy Intermediate Unknown Verified 04/29/23 20:29 Penicillins Allergy Intermediate Unknown Verified 04/29/23 20:29 propoxyphene [Darvocet-N 100] Allergy Intermediate Unknown Verified 04/29/23 20:29 Review of Systems Review of Systems: the patient is agitated and thrashing around. She is unable to answer questions. Subsequently the patient is able to answer questions. Constitutional: Constitutional: Reports as per HPI and Reports no additional constitutional complaints Eyes: Eyes: Reports as per HPI and Reports no additional eye complaints ENT: Reports as per HPI Cardiovascular: Cardiovascular: Reports as per HPI and Reports no additional cardiovascular complaints Respiratory: Respiratory: Reports as per HPI and Reports no additional respiratory complaints Gastrointestinal: Gastrointestinal: Reports as per HPI and Reports no additional gastrointestinal complaints Genitourinary: Genitourinary: Reports no additional female genitourinary complaints Musculoskeletal: Musculoskeletal: Reports no additional musculoskeletal complaints and Reports as per HPI Integumentary/Breasts: Skin/Breast: Reports system reviewed and no additional complaints, except as docu Comments: Generalized itching with multiple scratch willett. Neurologic: Reports system reviewed and no additional complaints, except as documented and Reports as per HPI Comments: No focal deficits noted. Generalized agitation Psychiatric: Psychiatric: Reports no additional psychiatric complaints, Reports as per HPI and Reports anxiety Comments: she denied suicidal/homicidal ideation. Endocrine: Endocrine: Reports no additional endocrine complaints PMFSH Past Medical History Medical History Abdominal pain ADHD Bipolar disorder Depression Diabetic peripheral neuropathy RAJ (generalized anxiety disorder) Hyperlipidemia associated with type 2 diabetes mellitus Hypertension associated with diabetes Methamphetamine abuse Nicotine dependence Obesity Schizophrenia Tobacco dependence Type 2 diabetes mellitus Vitamin D deficiency Surgical History Surgical History History of bilateral tubal ligation (~2009) Hx of tonsillectomy (~1994) Status post open reduction with internal
[2023-04-29] MEDS: LORazepam (*CRX) 1 MG TABLET 2 MG PO (17:16)
[2023-04-29 17:21] LABS: Basophils Absolute Auto 0.08 K/mm3 (0.00-0.10); Basophils Percent Auto 0.6 % (0.0-1.0); Eosinophils Absolute Auto 0.25 K/mm3 (0.02-0.50); Eosinophils Percent Auto 1.9 % (1.0-6.0); Hematocrit 43.9 % (35.0-49.0); Hemoglobin 14.7 g/dL (12.0-15.0); Immature Granulocyte Absolute 0.05 K/mm3 (0.00-0.00); Immature Granulocyte Percent A 0.4 % (0.0-0.0); Lymphocytes Absolute Auto 4.41 K/mm3 (1.10-4.50); Lymphocytes Percent Auto 33.6 % (18.0-42.0); Mean Corpuscular HGB Conc 33.5 g/dL (32.0-36.0); Mean Corpuscular Hemoglobin 28.2 pg (27.0-31.0); Mean Corpuscular Volume 84.1 fL (78.0-102.0); Mean Platelet Volume 9.3 fl (9.2-11.8); Monocytes Absolute Auto 1.06 K/mm3 (0.10-0.90); Monocytes Percent Auto 8.1 % (2.0-11.0); Neutrophils Absolute Auto 7.3 K/mm3 (1.7-7.2); Neutrophils Percent Auto 55.4 % (50.0-70.0); Platelet Count Result 402 K/mm3 (150-420); Red Blood Count 5.22 M/mm3 (4.20-5.40); Red Cell Distribution Width 13.1 % (11.6-14.4); White Blood Count 13.1 K/mm3 (4.8-10.8)
[2023-04-29 17:34] LABS: Partial Thromboplastin Time 29.9 SEC (23.90-30.70); Prothrombin Time 10.9 Seconds (9.50-12.10)
[2023-04-29 17:38] LABS: Acetaminophen 0 ug/mL (10-30)
[2023-04-29 17:40] VITALS: BP 125/78; PULSE 94; RESP 20; O2SAT 99
[2023-04-29 17:40] LABS: Lactic Acid Reflex 2.1 mmol/L (0.4-2.0)
[2023-04-29] MEDS: diazePAM (*CRX) 5 MG TABLET 10 MG PO (17:43)
[2023-04-29 17:47] LABS: Alanine Aminotransferase 30 U/L (14-59); Albumin Level 4.1 g/dL (3.4-5.0); Alkaline Phosphatase 60 U/L (46-116); Anion Gap 10 mmol/L (8-16); Aspartate Amino Transferase 27 U/L (15-37); Bilirubin,Total 0.5 mg/dL (0.00-1.00); Blood Urea Nitrogen 19 mg/dL (7-18); Calcium 9.5 mg/dL (8.5-10.1); Carbon Dioxide 28 mmol/L (21-32); Chloride 100 mmol/L (98-108); Creatine Kinase 750 U/L (26-192); Estimated Glomerular Filt Rate > 60; Ethanol < 3 mg/dL (0-6); Glucose 94 mg/dL (70-99); Lipase 36 U/L (16-77); Osmolality Calculated 288 mOsm/kg (285-295); Potassium 4.1 mmol/L (3.5-5.1); Sodium 138 mmol/L (136-145); Thyroid Stimulating Hormone 1.59 uIU/mL (0.36-3.74); Total Protein 7.6 g/dL (6.4-8.2); Troponin I 8.1 ng/L (0.00-60.4)
[2023-04-29 18:00] LABS: Appearance Urine Clear (Clear); Bilirubin Urine Negative (Negative); Blood Urine Negative (Negative); Color Urine Yellow (Yellow); Glucose Urine UA 3+ (Negative); Ketones Urine Negative (Negative); Leukocyte Esterase Ur Negative LEU/UL (Negative); Nitrate Urine Negative (Negative); Protein Urine Negative (Negative); Specific Grav Ur 1.025 (1.010-1.020); Urobilinogen Urine 0.2 mg/dL (0.2-1.0)
[2023-04-29 18:02] LABS: Add Urine Microscopic? YES; Bacteria Urine Trace /hpf; Pregnancy On Board Control Positive; RBC Urine None seen /hpf (0-2); Squamous Epithelial Cell Urine Few /hpf (Few); Urine Pregnancy Test Negative; WBC Urine None seen /hpf (0-3)
[2023-04-29 18:07] LABS: Amphetamine Screen Urine Positive (Negative); Barbiturate Screen Urine Negative (Negative); Benzodiazepines Screen Urine Negative (Negative); Cannabinoid Screen Urine Positive (Negative); Cocaine Screen Urine Negative (Negative); Methadone Screen Urine Negative (Negative); Opiate Screen Urine Negative (Negative); Phencyclidine Screen Urine Negative (Negative)
[2023-04-29 18:45] VITALS: PULSE 102; RESP 20; O2SAT 98
--- NOTE | 2023-04-29 19:15 | PC.NURSE ---
report received from HUEY Matos. Upon entering pt room, she is pacing and yelling for food uncontrollably. Pt asked to sit down and calm down so that an EKG can be done. With much encouragement and prompting pt will comply c direction and will follow instruction when told. She is itching and scratching her entire body. After EKG performed successfully pt given water to drink.
[2023-04-29] MEDS: diazePAM (*CRX) 5 MG TABLET PO (19:31)
[2023-04-29 20:19] LABS: Reflex Lactic Acid Yes or No Add Lactic
[2023-04-29] MEDS: diphenhydrAMINE HCl INJ 50 MG/ML VIAL 25 MG IV PUSH (20:21)
[2023-04-29] MEDS: LACTATED RINGERS 1,000 ML 999 ML IV CONT (20:22)
[2023-04-29 21:00] VITALS: BP 122/65; RESP 20; O2SAT 98
--- NOTE | 2023-04-29 21:09 | PC.NURSE ---
Dalila found for pt home, instructed on drug abuse and use. Pt asking for sandwich and ice cream and drink. Pt given food before d/c.
[2023-04-29 22:35] VITALS: BP 118/65; PULSE 75; RESP 20; TEMP 36.6; O2SAT 99
== END 2023-04-29 22:35 | disposition home or self-care (01) ==
PROVIDERS: Emergency Provider Internal Medicine Critical Care Medicine; PCP Family Medicine
DX: F15.10 Other stimulant abuse, uncomplicated (principal); E86.0 Dehydration; R41.0 Disorientation, unspecified; I10 Essential (primary) hypertension; E11.9 Type 2 diabetes mellitus without complications; E78.5 Hyperlipidemia, unspecified; F17.210 Nicotine dependence, cigarettes, uncomplicated
CPT/HCPCS: 36415; 70450; 80053; 80307; 81001; 81025; 82550; 83605; 83690; 84443; 84484; 85025; 85610; 85730; 93005; 96361; 96374; 99284; A9270; J1200; J7120

== ENCOUNTER 2023-06-01 17:42 | Emergency (ER) | payer OTHER, SELFPAY ==
[2023-06-01 17:42] VITALS: BP 110/68; PULSE 105; RESP 18; TEMP 36.5; TEMP 36.8; O2SAT 98
--- NOTE | 2023-06-01 18:05 | ED.GENADULT ---
HPI - General Adult General Chief complaint: Psychiatric Symptoms <Clark Graff DO - Last Filed: 06/02/23 07:06> Stated complaint: anxiety <Clark Graff DO - Last Filed: 06/02/23 07:06> Time Seen by Provider: 06/01/23 17:47 <Clark Graff DO - Last Filed: 06/02/23 07:06> History of Present Illness HPI narrative: Lizbet is a 43F with a PMH of multiple psychiatric conditions, DMII, obesity, methamphetamine abuse that was brought to the ED via EMS with reported SI. She will be reporting to [facility] for methamphetamine abuse inpatient treatment in a couple days. While she told staff she only wanted a place to stay. She told me that she was panic and wanted to end her life like she did last time. She has expressed attempts of overdose in the past. She also reported some abdominal pain. She also reported meth use yesterday. <Clark Graff DO - Last Filed: 06/02/23 07:06> Related Data Home medications: Home Medications Medication Instructions Recorded Confirmed ziprasidone HCl 60 mg capsule 60 mg PO DAILY 04/16/23 06/01/23 <Clark Graff DO - Last Filed: 06/02/23 07:06> Allergies/adverse reactions: Allergies Allergy/AdvReac Type Severity Reaction Status Date / Time latex Allergy Intermediate Unknown Verified 06/01/23 17:50 Penicillins Allergy Intermediate Unknown Verified 06/01/23 17:50 propoxyphene [Darvocet-N 100] Allergy Intermediate Unknown Verified 06/01/23 17:50 <Clark Graff DO - Last Filed: 06/02/23 07:06> Review of Systems Review of Systems: All systems reviewed & are unremarkable except as noted in HPI and below <Clark Graff DO - Last Filed: 06/02/23 07:06> [facility] Past Medical History Medical History: Medical History Abdominal pain ADHD Bipolar disorder Depression Diabetic peripheral neuropathy RAJ (generalized anxiety disorder) Hyperlipidemia associated with type 2 diabetes mellitus Hypertension associated with diabetes Methamphetamine abuse Nicotine dependence Obesity Schizophrenia Tobacco dependence Type 2 diabetes mellitus Vitamin D deficiency <Clark Graff DO - Last Filed: 06/02/23 07:06> Surgical History Surgical History: Surgical History History of bilateral tubal ligation (~2009) Hx of tonsillectomy (~1994) Status post open reduction with internal fixation of fracture (~2002) Right ankle fracture with subsequent removal hardware 4 years later <Clark Graff DO - Last Filed: 06/02/23 07:06> Family History Family History: Family History Mother Ovarian cancer Diabetes mellitus Multiple sclerosis Grandparent Ovarian cancer Father Heart disease Leukemia <Clark Graff DO - Last Filed: 06/02/23 07:06> Social History Social History: Social History Social History: She has smoked as much as 2 packs of cigarettes per day. She started smoking when she was 18. She is down to 1 pack of cigarettes per day. She does not drink any alcohol. She smokes marijuana daily. She has smoked and snorted methamphetamines for the last 7 years. She denies any other illicit substance use. She lives with her significant other. She has 9 cats and 3 dogs at home. She has a pit bull, husky and hound dog. Smoking packs per day: 1.5 Smoking cigarettes per day: 30.0 Years smoked: 23 Smoking pack-years: 34.50 Smoking status: Current every day smoker Tobacco type: cigarettes Additional smoking assessment comments: Patient stated she use to smoke 2 packs a day Alcohol intake: never Substance use: current Substance use type: methamphetamine Last use: 10/06/2021 marijuana, meth 10/10/2022 Lack of Transportation: YES Lack of Food: Sometimes True
--- NOTE | 2023-06-01 18:12 | PC.NURSE ---
PT IS RESTING ON STRETCHER, COOPERATIVE, RESTLESS. PT REPORTS SHE IS NOT SUICIDAL, HAD 1 THOUGHT TODAY AND WILL NOT HARM HERSELF. PT THEN REPORTS SHE IS TO GO INTO IN PATIENT REHAB THIS WEEK AT [facility] IN [place] AND WOULD LIKE TO STAY IN THE ER UNTIL THEN. WHEN EDUCATING PT ABOUT PROTOCOLS AND THE ABILITY TO HOUSE HER IN THE ER UNTIL THEN WITHOUT ANY MEDICAL REASON, PT REPORTS I WILL BE SUICIDAL IF YOU SEND ME HOME. PT REPORTS SHE HAD 1 SUICIDAL ATTEMPT 2 YEARS AGO BY OVERDOSING ON HER MEDICATIONS. PT REPORTS HE LAST IN PATIENT PSYCHIATRIC HOSPITALIZATION WAS AT THAT TIME. PT STATES SHE HAS NOT HAD ANY OTHER ATTEMPTS. WILL CONTINUE TO MONITOR.
[2023-06-01 18:27] LABS: Basophils Absolute Auto 0.05 K/mm3 (0.00-0.10); Basophils Percent Auto 0.5 % (0.0-1.0); Eosinophils Absolute Auto 0.17 K/mm3 (0.02-0.50); Eosinophils Percent Auto 1.8 % (1.0-6.0); Hematocrit 41.5 % (35.0-49.0); Hemoglobin 13.5 g/dL (12.0-15.0); Immature Granulocyte Absolute 0.02 K/mm3 (0.00-0.00); Immature Granulocyte Percent A 0.2 % (0.0-0.0); Lymphocytes Absolute Auto 3.27 K/mm3 (1.10-4.50); Lymphocytes Percent Auto 35.5 % (18.0-42.0); Mean Corpuscular HGB Conc 32.5 g/dL (32-36); Mean Corpuscular Hemoglobin 28.5 pg (27.0-31.0); Mean Corpuscular Volume 87.7 fL (78.0-102.0); Mean Platelet Volume 9.4 fl (9.2-11.8); Monocytes Absolute Auto 0.51 K/mm3 (0.10-0.90); Monocytes Percent Auto 5.5 % (2.0-11.0); Neutrophils Percent Auto 56.5 % (50.0-70.0); Platelet Count Result 325 K/mm3 (150-420); Red Blood Count 4.73 M/mm3 (4.20-5.40); White Blood Count 9.2 K/mm3 (4.8-10.8)
--- NOTE | 2023-06-01 18:27 | PC.NURSE ---
PT REPORTED TO ERP THAT SHE IS SUICIDAL WITH A PLAN TO OVERDOSE ON HER RX MEDICATIONS LIKE LAST TIME. PT DENIES TO RN THAT SHE DOESN'T WANT TO LIVE ANYMORE, REPORTS SHE DOES NOT WANT TO HARM HERSELF. SUICIDAL PRECAUTIONS ARE INITIATED AT THIS TIME, SITTER AT BEDSIDE. WILL CONTINUE TO MONITOR.
[2023-06-01 18:34] LABS: Appearance Urine Clear (Clear); Bilirubin Urine Negative (Negative); Blood Urine Negative (Negative); Color Urine Yellow (Yellow); Glucose Urine UA 3+ (Negative); Ketones Urine Negative (Negative); Leukocyte Esterase Ur Negative LEU/UL (Negative); Nitrate Urine Negative (Negative); Protein Urine Negative (Negative); Specific Grav Ur 1.015 (1.010-1.020); Urobilinogen Urine 0.2 mg/dL (0.2-1.0); pH Urine 7.5 (5.0-8.0)
[2023-06-01 18:48] LABS: Alanine Aminotransferase 19 U/L (14-59); Albumin Level 3.5 g/dL (3.4-5.0); Alkaline Phosphatase 45 U/L (46-116); Anion Gap 7 mmol/L (4-12); Aspartate Amino Transferase 11 U/L (15-37); Bilirubin,Total 0.4 mg/dL (0.00-1.00); Blood Urea Nitrogen 13 mg/dL (7-18); Calcium 9.1 mg/dL (8.5-10.1); Carbon Dioxide 32 mmol/L (21-32); Chloride 103 mmol/L (98-108); Estimated CRCL calculation 119 ml/min; Estimated Glomerular Filt Rate > 60; Glucose 170 mg/dL (70-99); Osmolality Calculated 298 mOsm/kg (285-295); Potassium 3.8 mmol/L (3.5-5.1); Sodium 142 mmol/L (136-145); Total Protein 6.7 g/dL (6.4-8.2)
[2023-06-01] MEDS: LORazepam (*CRX) 1 MG TABLET PO (18:48)
[2023-06-01 18:49] LABS: CRP < 0.1 mg/dL (0.0-0.9); Ethanol < 3 mg/dL (0-6)
[2023-06-01] MEDS: MAG HYDROX/ALUMINUM HYD/SIMETH 30 ML, PHENobarb/HYOSCY/ATROPINE/SCOP 32.4 MG, LIDOCAINE... PO (18:49)
[2023-06-01 18:50] LABS: Add Urine Microscopic? YES; RBC Urine 0-2 /hpf (0-2)
[2023-06-01 18:51] LABS: Amorphous Sediment Urine Moderate; Bacteria Urine 1+ /hpf; Pregnancy On Board Control Positive; Squamous Epithelial Cell Urine Few /hpf (Few); Urine Pregnancy Test Negative; WBC Urine 0-3 /hpf (0-3)
--- NOTE | 2023-06-01 18:59 | PC.NURSE ---
PT IS CURRENTLY EATING, REFUSED THE GI COCKTAIL, REPORTS SHE WAS JUST HUNGRY AND HER ABD NO LONGER HURTS ( SHE REPORTED ABD PAIN TO ERP, NOT RN). SITTER REMAINS AT BEDSIDE.
[2023-06-01 19:01] LABS: Amphetamine Screen Urine Negative (Negative); Barbiturate Screen Urine Negative (Negative); Benzodiazepines Screen Urine Negative (Negative); Cannabinoid Screen Urine Positive (Negative); Cocaine Screen Urine Negative (Negative); Methadone Screen Urine Negative (Negative); Opiate Screen Urine Negative (Negative); Phencyclidine Screen Urine Negative (Negative)
[2023-06-01 19:07] LABS: SARS-CoV-2 RNA PCR Negative (Negative)
[2023-06-01 19:08] LABS: Influenza A QL RT-PCR Negative (Negative); Influenza B QL RT-PCR Negative (Negative); RSV RNA, RT-PCR Negative (Negative)
[2023-06-01 19:09] LABS: Thyroid Stimulating Hormone Reflex 1.06 u/IU/mL (0.36-3.74)
--- NOTE | 2023-06-01 19:13 | PC.NURSE ---
Patient report received from HUEY Tatum. Patient resting on stretcher in ED 5 with sitter at bedside for safety. Patient pending [facility] evaluation.
--- NOTE | 2023-06-01 19:54 | PC.NURSE ---
[facility] at patient bedside for evaluation. consumer safety officer remains at bedside.
--- NOTE | 2023-06-01 20:54 | PC.NURSE ---
sitter remains at bedside for patient safety. Per [facility] eval, states patient can come to their 24 hour living room they have but she will need transportation to get to their facility, which is in [place]. EMS unable to transport unless [address] covers the cost of the transfer, based on Medicaid/Medicare rate of $320. Per Sancho baxter, patient denies SI, unless she gets discharged from facility. Per ERP Dr. Graff, okay to pull patient safety sitter as patient is not actively suicidal nor does she have a plan to self harm.
--- NOTE | 2023-06-01 21:20 | PC.NURSE ---
sitter released at this time per Dr. Graff. Patient resting calmly on stretcher at this time, awaiting transport to [facility] living room program after discharge. Per [facility] staff, someone will be available to pick her up in the morning. RN unable to find other transportation on patient behalf at this time.
[2023-06-01 22:20] VITALS: BP 101/64; PULSE 85; RESP 16; TEMP 36.4; O2SAT 97
--- NOTE | 2023-06-01 22:20 | PC.NURSE ---
patient checked, resting on stretcher calmly in ED 5 without distress. patient currently denies SI. vss. RN monitoring.
--- NOTE | 2023-06-01 23:22 | PC.NURSE ---
-[id number]
--- NOTE | 2023-06-01 23:22 | PC.NURSE ---
Patient resting on stretcher in ED 5 without distress. RN monitoring.
--- NOTE | 2023-06-02 00:31 | PC.NURSE ---
patient given warm blanket at this time. RN monitoring. patient calm and cooperative resting on stretcher in ED 5.
--- NOTE | 2023-06-02 01:24 | PC.NURSE ---
patient given ice cream per request, resting comfortably on stretcher.
--- NOTE | 2023-06-02 02:35 | PC.NURSE ---
patient resting calmly on stretcher in ED 5. RN monitoring. nad.
--- NOTE | 2023-06-02 03:23 | PC.NURSE ---
patient resting comfortably in ED 5. RN monitoring.
[2023-06-02 04:01] VITALS: BP 100/86; PULSE 84; RESP 18; TEMP 36.5; O2SAT 98
--- NOTE | 2023-06-02 04:04 | PC.NURSE ---
VS checked. patient awake and alert, states when she leaves here she is going to go to her house then to [place] for her rehab. RN reminded patient Sancho baxter was saving her a place for their living room program until rehab is ready for her and she had agreed to go there. Patient says she isn't going there and that she will go home to get her things before going to rehab facility. Patient denies SI/HI and states she needed to stay in the ED last night to detox . When asked if patient would harm herself if she went home she stated no . When asked what changed from last nights answer patient states I got some sleep. patient ambulatory to bathroom without difficulty. nad. cooperative with RN and calm.
--- NOTE | 2023-06-02 05:21 | PC.NURSE ---
patient resting in ED 5. RN monitoring.
--- NOTE | 2023-06-02 06:07 | PC.NURSE ---
patient ambulatory to bathroom then to nurses station stating she needs a nicotine patch and adding that she is feeling anxious . ERP phoned and orders obtained.
[2023-06-02] MEDS: LORazepam (*CRX) 0.5 MG TABLET PO (06:15)
[2023-06-02] MEDS: NICOTINE (*PBKC) 21 MG PATCH 1 PATCH TRANSDERM (06:15)
--- NOTE | 2023-06-02 07:11 | PC.NURSE ---
RN phoned [facility] for update regarding transportation, spoke with Megan who states she was unaware of need for patient transport and will look into it for us. Aware patient is ready to be discharged to them for living room pending transportation. patient given warm blanket per request.
--- NOTE | 2023-06-02 07:14 | PC.NURSE ---
patient report given to HUEY Tatum for continuation of care by day shift.
--- NOTE | 2023-06-02 07:30 | PC.NURSE ---
CALLED [facility] FOR TRANSPORT TO [facility]. PER RAMIREZ, [facility] WOULD HAVE TO COVER THE CHARGE OR PT WOULD HAVE TO BE BILLED FOR TRANSPORT DUE TO CONVENIENCE, NOT A NECESSITY. ATTEMPTED TO CALL [facility] TRANSPORT, MESSAGE WAS LEFT, ATTEMPTED TO CALL [facility], UNABLE TO LEAVE MESSAGE. WILL CONTINUE TO ATTEMPT SECURE TRANSPORT.
--- NOTE | 2023-06-02 07:46 | PC.NURSE ---
ERICH FROM [facility] CALLS, REPORTS PAMELA THE PHARMACEUTICAL PROCESS ENGINEER WILL BE ON AT 0830 AND SOMEONE WILL BE EN ROUTE TO TRANSPORT PT TO [facility] WITHIN THE HOUR. UPON UPDATING PT, SHE REPORTS SHE DOES NOT WANT TO GO TO [facility], SHE WANTS TO GO HOME. PT DENIES ANY SI OR HI. PT IS CALM, REQUESTING BREAKFAST AND XANAX. ERP IS AWARE. PT REPORTS SHE IS READY TO GO HOME, I JUST NEEDED SOMEWHERE TO SLEEP LAST NIGHT, I CAN GO HOME TODAY.
--- NOTE | 2023-06-02 07:48 | PC.NURSE ---
NICOTINE PATCH REMOVED.
--- NOTE | 2023-06-02 07:53 | PC.NURSE ---
PT REPORTS SHE HAS A PLAN TO BE IN PATIENT AT [facility] IN [place] FOR METHAMPHETAMINE ABUSE. PT REPORTS SHE SPOKE WITH HER SIG OTHER ON THE PHONE AND [facility] CALLED REPORTING HER BED WAS READY FOR HER. PT STATES SHE IS READY TO GO, HOWEVER WANTS XANAX AND BREAKFAST. PT IS AWAITING BREAKFAST TRAY AT THIS TIME. PT IS CALM, COOPERATIVE. ERP HAS SPOKEN WITH PT AND PT IS TO BE DC HOME TO REHAB. WILL CONTINUE TO MONITOR.
[2023-06-02] MEDS: ALPRAZolam (*CRX) 0.25 MG TABLET PO (08:17)
--- NOTE | 2023-06-02 08:25 | PC.NURSE ---
MOTHER TO TRANSPORT PT TO [facility]. PT REPORTS I WILL NEVER SMOKE METH AGAIN. PT CONTINUES TO DENY SI OR HI. PT IS CALM AND COOPERATIVE, COMPLETED ALL OF HER BREAKFAST TRAY. PT AMBULATORY OUT OF ED WITHOUT DISTRESS.
--- NOTE | 2023-06-02 08:27 | PC.NURSE ---
BELONGINGS WERE RETURNED TO PT
[2023-06-02 08:29] VITALS: BP 100/78; PULSE 82; RESP 18; TEMP 36.7; O2SAT 98
--- NOTE | 2023-06-02 08:31 | PC.NURSE ---
[facility] UPDATED ON PT STATUS
== END 2023-06-02 08:29 | disposition home or self-care (01) ==
PROVIDERS: Emergency Provider Emergency Medicine; PCP Family Medicine
DX: F41.9 Anxiety disorder, unspecified (principal); F15.10 Other stimulant abuse, uncomplicated; E11.9 Type 2 diabetes mellitus without complications; E66.9 Obesity, unspecified; Z68.28 Body mass index [BMI] 28.0-28.9, adult; E78.5 Hyperlipidemia, unspecified; I10 Essential (primary) hypertension; F20.9 Schizophrenia, unspecified; E55.9 Vitamin D deficiency, unspecified; F17.210 Nicotine dependence, cigarettes, uncomplicated; Z20.822 Contact with and (suspected) exposure to COVID-19
CPT/HCPCS: 36415; 80053; 80307; 81001; 81025; 84443; 85025; 86140; 87637; 99284; A9270

== ENCOUNTER 2023-09-08 14:33 | Outpatient (NON) | payer OTHER, SELFPAY | END 2023-09-08 14:34 | disposition home or self-care (01) | PROVIDERS: Visit Provider Family Medicine | DX: R30.0 Dysuria (principal) | CPT/HCPCS: 87086; 87088 ==

== ENCOUNTER 2023-09-15 13:54 | Outpatient (CLI) | payer OTHER, SELFPAY ==
--- NOTE | ~2023-09-15 | MM_ITS ---
EXAMINATION: MM screening dhiraj BI w александр HISTORY: Screening TECHNIQUE: Craniocaudal and mediolateral oblique 3-D tomosynthesis images were obtained and synthetic 2-D images were generated. CAD analysis was submitted and interpreted. COMPARISON: No prior mammogram is available for comparison at this institution. BREAST PARENCHYMAL COMPOSITION: Not dense: There are scattered areas of fibroglandular density. FINDINGS: There is no evidence of suspicious mass, calcification, or architectural distortion to sugg est malignancy in either breast. There has been no suspicious interval change. IMPRESSION: 1. No mammographic evidence of malignancy. 2. Recommend routine screening mammography in one year. BI-RADS Category 1: Negative. Reviewed, dictated and finalized at location B.
== END 2023-09-15 13:55 | disposition home or self-care (01) ==
PROVIDERS: PCP Family Medicine; Visit Provider Family Medicine
DX: Z12.31 Encounter for screening mammogram for malignant neoplasm of breast (principal)
CPT/HCPCS: 77063; 77067

== ENCOUNTER 2023-09-21 10:48 | Emergency (ER) | payer OTHER, SELFPAY ==
[2023-09-21 10:49] VITALS: BP 121/84; PULSE 87; RESP 20; TEMP 36.6; O2SAT 100
[2023-09-21] MEDS: ALPRAZolam (*CRX) 0.5 MG TABLET 1 MG PO (11:09)
--- NOTE | 2023-09-21 11:15 | ED.ANXIETY ---
HPI - Anxiety General Chief Complaint: Anxiety Stated Complaint: anxiety Time Seen by Provider: 09/21/23 10:49 Source: patient Mode of arrival: ambulatory History of Present Illness HPI narrative: Patient is a 43-year-old female with significant past medical history that presents today for anxiety. Patient normally takes 1 tab of Xanax b.i.d. p.r.n.. She states that she ran out and she had a bad panic attack this morning is still having a panic attack. His says her pulse rate is up in very high and she had a panic attack that was brought on by not having food in the house. She gets panic attacks quite frequently. complaint: anxiety Onset (ago): hour(s) Symptoms: palpitations Severity: moderate Place: home History of similar episodes: Yes Provoking factors: none known Relieving factors: medication Exacerbating factors: thinking about event Associated symptoms: diaphoresis Related Data Allergies Allergy/AdvReac Type Severity Reaction Status Date / Time latex Allergy Intermediate Unknown Verified 09/21/23 10:49 Penicillins Allergy Intermediate Unknown Unverified 09/21/23 10:49 propoxyphene [Darvocet-N 100] Allergy Intermediate Unknown Verified 09/21/23 10:49 Review of Systems Review of Systems: All systems reviewed & are unremarkable except as noted in HPI and below Constitutional: Constitutional: Reports as per HPI Eyes: Eyes: Reports no additional eye complaints ENT: Reports system reviewed and no additional complaints, except as documented Cardiovascular: Cardiovascular: Reports no additional cardiovascular complaints Respiratory: Respiratory: Reports no additional respiratory complaints Gastrointestinal: Gastrointestinal: Reports no additional gastrointestinal complaints Genitourinary: Genitourinary: Reports no additional female genitourinary complaints Musculoskeletal: Musculoskeletal: Reports no additional musculoskeletal complaints Integumentary/Breasts: Skin/Breast: Reports system reviewed and no additional complaints, except as docu Neurologic: Reports system reviewed and no additional complaints, except as documented Psychiatric: Psychiatric: Reports anxiety Endocrine: Endocrine: Reports no additional endocrine complaints Hematologic/Lymphatic: Hematologic/Lymphatic: Reports no additional hematologic/lymphatic complaints Allergic/Immunologic: Allergic/Immunologic: Reports no additional allergic/immunologic complaints PMFSH Past Medical History Medical History Abdominal pain ADHD Bipolar disorder Depression Diabetic peripheral neuropathy RAJ (generalized anxiety disorder) Hyperlipidemia associated with type 2 diabetes mellitus Hypertension associated with diabetes Methamphetamine abuse Nicotine dependence Obesity Schizophrenia Tobacco dependence Type 2 diabetes mellitus Vitamin D deficiency Surgical History Surgical History History of bilateral tubal ligation (~2009) Hx of tonsillectomy (~1994) Status post open reduction with internal fixation of fracture (~2002) Right ankle fracture with subsequent removal hardware 4 years later Family History Family History Mother Ovarian cancer Diabetes mellitus Multiple sclerosis Grandparent Ovarian cancer Father Heart disease Leukemia Social History Social History Social History: She has smoked as much as 2 packs of cigarettes per day. She started smoking when she was 18. She is down to 1 pack of cigarettes per day. She does not drink any alcohol. She smokes marijuana daily. She has smoked and snorted methamphetamines for the last 7 years. She denies any other illicit substance use. She lives with her significant other. She has 9 cats and 3 dogs at home. She has a pit bull, husky and hound dog. Smoking pac
== END 2023-09-21 11:27 | disposition home or self-care (01) ==
PROVIDERS: Emergency Provider Family Medicine; PCP Family Medicine
DX: F41.9 Anxiety disorder, unspecified (principal); F41.0 Panic disorder [episodic paroxysmal anxiety]; E78.5 Hyperlipidemia, unspecified; E11.9 Type 2 diabetes mellitus without complications; I10 Essential (primary) hypertension; F17.210 Nicotine dependence, cigarettes, uncomplicated
CPT/HCPCS: 99283; A9270

== ENCOUNTER 2023-09-27 20:06 | Emergency (ER) | payer OTHER, SELFPAY ==
[2023-09-27 20:06] VITALS: BP 142/95; PULSE 120; RESP 24; TEMP 36.8; O2SAT 96
--- NOTE | 2023-09-27 20:10 | ED.GENADULT ---
HPI - General Adult General Chief complaint: Unspecified Stated complaint: substance abuse Time Seen by Provider: 09/27/23 20:09 Source: patient Mode of arrival: ambulatory Limitations: no limitations History of Present Illness HPI narrative: Patient is a 43-year-old female with known meth addiction and here for anxiety and panic. She said she last used last night but she appears to be acutely intoxicated on examination. Onset (ago): day(s) (1) Location: upper extremity ( uncontrolled movements) and lower extremity ( Uncontrolled movements) Radiation: non-radiation Severity: severe and similar to prior episodes Pain Consistency: constant Relieving factors: none Exacerbating factors: none Associated symptoms: denies other symptoms Treatments prior to arrival: none Related Data Allergies Allergy/AdvReac Type Severity Reaction Status Date / Time latex Allergy Intermediate Unknown Verified 09/21/23 10:49 Penicillins Allergy Intermediate Unknown Unverified 09/21/23 10:49 propoxyphene [Darvocet-N 100] Allergy Intermediate Unknown Verified 09/21/23 10:49 Review of Systems Review of Systems: All systems reviewed & are unremarkable except as noted in HPI and below Constitutional: Constitutional: Reports no additional constitutional complaints Eyes: Eyes: Reports no additional eye complaints ENT: Reports system reviewed and no additional complaints, except as documented Cardiovascular: Cardiovascular: Reports no additional cardiovascular complaints Respiratory: Respiratory: Reports no additional respiratory complaints Gastrointestinal: Gastrointestinal: Reports no additional gastrointestinal complaints Genitourinary: Genitourinary: Reports no additional female genitourinary complaints Musculoskeletal: Musculoskeletal: Reports no additional musculoskeletal complaints Integumentary/Breasts: Skin/Breast: Reports system reviewed and no additional complaints, except as docu Neurologic: Reports system reviewed and no additional complaints, except as documented Psychiatric: Psychiatric: Reports no additional psychiatric complaints Endocrine: Endocrine: Reports no additional endocrine complaints Hematologic/Lymphatic: Hematologic/Lymphatic: Reports no additional hematologic/lymphatic complaints Allergic/Immunologic: Allergic/Immunologic: Reports no additional allergic/immunologic complaints PMFSH Past Medical History Medical History Abdominal pain ADHD Bipolar disorder Depression Diabetic peripheral neuropathy RAJ (generalized anxiety disorder) Hyperlipidemia associated with type 2 diabetes mellitus Hypertension associated with diabetes Methamphetamine abuse Nicotine dependence Obesity Schizophrenia Tobacco dependence Type 2 diabetes mellitus Vitamin D deficiency Surgical History Surgical History History of bilateral tubal ligation (~2009) Hx of tonsillectomy (~1994) Status post open reduction with internal fixation of fracture (~2002) Right ankle fracture with subsequent removal hardware 4 years later Family History Family History Mother Ovarian cancer Diabetes mellitus Multiple sclerosis Grandparent Ovarian cancer Father Heart disease Leukemia Social History Social History Social History: She has smoked as much as 2 packs of cigarettes per day. She started smoking when she was 18. She is down to 1 pack of cigarettes per day. She does not drink any alcohol. She smokes marijuana daily. She has smoked and snorted methamphetamines for the last 7 years. She denies any other illicit substance use. She lives with her significant other. She has 9 cats and 3 dogs at home. She has a pit bull, husky and hound dog. Smoking packs per day: 1.5 Smoking cigarettes per day: 30.0
[2023-09-27] MEDS: LORazepam INJ (*CRX) 2 MG/ML VIAL IM (20:43)
--- NOTE | 2023-09-27 20:51 | PC.NURSE ---
patient ambulated to bathroom with assist x 1 and back to the room. holding a collection hat on her way back to the room. restless, moving arms and legs about. rambling, anxious
--- NOTE | 2023-09-27 21:02 | PC.NURSE ---
Addendum entered by Willow Arizmendi RN 09/27/23 21:03: door remains open and curtain remains open for increased monitoring. Original Note: patient laying on stretcher, restless, moving arms and legs all over the place. rapid breathing. easily directed.
[2023-09-27] MEDS: OLANZapine 10 MG, WATER, STERILE FOR INJECTION 2.1 ML IM (21:32)
--- NOTE | 2023-09-27 21:38 | PC.NURSE ---
patient restless. wants to eat. sandwich, chips and sugar free soda given. patient up and down on the bed.
--- NOTE | 2023-09-27 21:50 | PC.NURSE ---
patient mumbling while sitting on the side of the bed. eating food given to her. cries then laughs. erratic movements on the stretcher. door and curtain left open for increased monitoring for safety.
--- NOTE | 2023-09-27 22:13 | PC.NURSE ---
patient laying on stretcher. moving all over the stretcher. moves from head of the bed to putting her head at the foot of the bed. constantly moving around. unable to understand what she is saying as patient is mumbling. coverd wtih blanket.
--- NOTE | 2023-09-27 22:21 | PC.NURSE ---
patient is requesting that her ring be taken off her right hand, 4th digit. finger is swollen. have tried several times to remove ring. will obtain a ring cutter to remove ring.
--- NOTE | 2023-09-27 22:38 | PC.NURSE ---
patient no longer wants to have ring taken off. i want ice cream . given to patient by deshawn Merritt
--- NOTE | 2023-09-27 22:59 | PC.NURSE ---
ER provider at the bedside removing ring from her right hand, 4th digit
--- NOTE | 2023-09-27 23:06 | PC.NURSE ---
ER provider was able to get ring off patients finger
== END 2023-09-27 23:21 | disposition home or self-care (01) ==
PROVIDERS: Emergency Provider Emergency Medicine; PCP Family Medicine
DX: F23 Brief psychotic disorder (principal); F15.129 Other stimulant abuse with intoxication, unspecified; E78.5 Hyperlipidemia, unspecified; E11.9 Type 2 diabetes mellitus without complications; I10 Essential (primary) hypertension; F17.210 Nicotine dependence, cigarettes, uncomplicated
CPT/HCPCS: 96372; 99284; J2060; J2359

== ENCOUNTER 2023-10-11 18:14 | Emergency (ER) | payer OTHER, SELFPAY ==
[2023-10-11 18:14] VITALS: BP 127/89; PULSE 90; RESP 24; TEMP 36; O2SAT 100
--- NOTE | 2023-10-11 18:31 | ED.ANXIETY ---
HPI - Anxiety General Chief Complaint: Anxiety Stated Complaint: anxiety Source: patient Mode of arrival: ambulatory Limitations: no limitations History of Present Illness HPI narrative: 43 year old female presents to the Emergency Department complaining of anxiety. Patient is obviously tweaking. States she used methamphetamine. States she is an addict. complaint: anxiety Severity: moderate History of similar episodes: Yes Provoking factors: other (substance abuse) Relieving factors: nothing Related Data Allergies Allergy/AdvReac Type Severity Reaction Status Date / Time latex Allergy Intermediate Unknown Verified 10/05/23 13:15 Penicillins Allergy Intermediate Unknown Verified 10/05/23 13:15 propoxyphene [Darvocet-N 100] Allergy Intermediate Unknown Verified 10/05/23 13:15 fluconazole AdvReac Severe Vomiting Uncoded 10/05/23 13:19 Review of Systems Review of Systems: All systems reviewed & are unremarkable except as noted in HPI and below Constitutional: Constitutional: Reports as per HPI Eyes: Eyes: Reports as per HPI ENT: Reports system reviewed and no additional complaints, except as documented Cardiovascular: Cardiovascular: Reports as per HPI Respiratory: Respiratory: Reports as per HPI Gastrointestinal: Gastrointestinal: Reports as per HPI and Reports abdominal pain (LLQ from rubbing it) Genitourinary: Genitourinary: Reports no additional female genitourinary complaints Musculoskeletal: Musculoskeletal: Reports no additional musculoskeletal complaints Integumentary/Breasts: Skin/Breast: Reports system reviewed and no additional complaints, except as docu Neurologic: Reports system reviewed and no additional complaints, except as documented Psychiatric: Psychiatric: Reports no additional psychiatric complaints Endocrine: Endocrine: Reports no additional endocrine complaints Hematologic/Lymphatic: Hematologic/Lymphatic: Reports no additional hematologic/lymphatic complaints Allergic/Immunologic: Allergic/Immunologic: Reports no additional allergic/immunologic complaints [facility] Past Medical History Medical History Abdominal pain ADHD Bipolar disorder Depression Diabetic peripheral neuropathy RAJ (generalized anxiety disorder) Hyperlipidemia associated with type 2 diabetes mellitus Hypertension associated with diabetes Methamphetamine abuse Nicotine dependence Obesity Schizophrenia Tobacco dependence Type 2 diabetes mellitus Vitamin D deficiency Surgical History Surgical History History of bilateral tubal ligation (~2009) Hx of tonsillectomy (~1994) Status post open reduction with internal fixation of fracture (~2002) Right ankle fracture with subsequent removal hardware 4 years later Family History Family History Mother Ovarian cancer Diabetes mellitus Multiple sclerosis Grandparent Ovarian cancer Father Heart disease Leukemia Social History Social History Social History: She has smoked as much as 2 packs of cigarettes per day. She started smoking when she was 18. She is down to 1 pack of cigarettes per day. She does not drink any alcohol. She smokes marijuana daily. She has smoked and snorted methamphetamines for the last 7 years. She denies any other illicit substance use. She lives with her significant other. She has 9 cats and 3 dogs at home. She has a pit bull, husky and hound dog. Smoking packs per day: 1.5 Smoking cigarettes per day: 30.0 Years smoked: 23 Smoking pack-years: 34.50 Smoking status: Current every day smoker Tobacco type: cigarettes Additional smoking assessment comments: Patient stated she use to smoke 2 packs a day Alcohol intake: never Substance use: current Substance use type: unknown Last use:
== END 2023-10-11 18:35 | disposition home or self-care (01) ==
PROVIDERS: Emergency Provider Emergency Medicine
DX: F15.10 Other stimulant abuse, uncomplicated (principal); F41.9 Anxiety disorder, unspecified; E78.5 Hyperlipidemia, unspecified; I10 Essential (primary) hypertension; E11.9 Type 2 diabetes mellitus without complications; F17.210 Nicotine dependence, cigarettes, uncomplicated
CPT/HCPCS: 99281

== ENCOUNTER 2023-11-14 09:34 | Emergency (ER) | payer OTHER, SELFPAY ==
--- NOTE | ~2023-11-14 | XR_ITS ---
EXAMINATION: XR knee LT 3V DATE: 11/14/2023 09:56 INDICATION: Lateral left knee pain 3 days post fall TECHNIQUE: Anteroposterior, 2 oblique and crosstable lateral views of the left knee were obtained COMPARISON: None. FINDINGS: Again seen is mild lateral patellar subluxation. No fracture. Moderate-sized marginal osteophytes in all 3 compartments with mild to moderate joint space narrowing at the lateral patellofemoral compart ment. No significant joint space related medial and lateral margins although this could be underestim ated on nonweightbearing imaging. Small left knee joint effusion with loose osteochondral body at the suprapatellar pouch. Chronic dystrophic calcifications in the soft tissues along the anterolateral m argin of the proximal tibia. Soft tissues are otherwise unremarkable. IMPRESSION: 1. Small left knee joint effusion. No acute osseous abnormality. 2. No significant change in mild to moderate patellofemoral compartment predominant tricompartmental osteoarthritis at the left knee. Reviewed, dictated and finalized at location A. IMPRESSION: 1. Small left knee joint effusion. No acute osseous abnormality. 2. No significant change in mild to moderate patellofemoral compartment predomi nant tricompartmental osteoarthritis at the left knee.
[2023-11-14 09:39] VITALS: BP 114/77; PULSE 80; RESP 20; TEMP 36.2; O2SAT 98
--- NOTE | 2023-11-14 09:54 | PC.NURSE ---
xray at the bedside.
[2023-11-14] MEDS: KETOROLAC (*BKC) 60 MG/2 ML VIAL IM (09:55)
--- NOTE | 2023-11-14 10:06 | ED.LOWEXIN ---
HPI - Extremity Injury (Lower) General Chief Complaint: Extremity Injury, Lower Stated Complaint: Knee Pain Time Seen by Provider: 11/14/23 09:42 Source: patient Mode of arrival: ambulatory Limitations: no limitations History of Present Illness HPI Narrative: this is a 43-year-old female who presents with a 3 day history of left knee pain with some mild swelling after she fell out of bed approximately 3 days ago causing swelling and pain has good range of motion although limited secondary to pain and tenderness no calf pain no fever chills no other injuries. MD complaint: knee injury Onset (ago): day(s) Injury: Left: knee ( swelling and tenderness) Type of Injury: blunt Place: home Associated symptoms: swelling Related Data Allergies Allergy/AdvReac Type Severity Reaction Status Date / Time fluconazole Allergy Severe Vomiting, Verified 11/14/23 09:50 DIZZINESS, DIARRHEA latex Allergy Intermediate Unknown Verified 10/05/23 13:15 Penicillins Allergy Intermediate Unknown Verified 10/05/23 13:15 propoxyphene [Darvocet-N 100] Allergy Intermediate Unknown Verified 10/05/23 13:15 Review of Systems Review of Systems: All systems reviewed & are unremarkable except as noted in HPI and below PMFSH Past Medical History Medical History Abdominal pain ADHD Bipolar disorder Depression Diabetic peripheral neuropathy RAJ (generalized anxiety disorder) Hyperlipidemia associated with type 2 diabetes mellitus Hypertension associated with diabetes Methamphetamine abuse Nicotine dependence Obesity Schizophrenia Tobacco dependence Type 2 diabetes mellitus Vitamin D deficiency Surgical History Surgical History History of bilateral tubal ligation (~2009) Hx of tonsillectomy (~1994) Status post open reduction with internal fixation of fracture (~2002) Right ankle fracture with subsequent removal hardware 4 years later Family History Family History Mother Ovarian cancer Diabetes mellitus Multiple sclerosis Grandparent Ovarian cancer Father Heart disease Leukemia Social History Social History Social History: She has smoked as much as 2 packs of cigarettes per day. She started smoking when she was 18. She is down to 1 pack of cigarettes per day. She does not drink any alcohol. She smokes marijuana daily. She has smoked and snorted methamphetamines for the last 7 years. She denies any other illicit substance use. She lives with her significant other. She has 9 cats and 3 dogs at home. She has a pit bull, husky and hound dog. Smoking packs per day: 1.5 Smoking cigarettes per day: 30.0 Years smoked: 23 Smoking pack-years: 34.50 Smoking status: Current every day smoker Tobacco type: cigarettes Additional smoking assessment comments: Patient stated she use to smoke 2 packs a day Alcohol intake: never Substance use: current Substance use type: marijuana, amphetamines, painkillers and methamphetamine Last use: 10/06/2021 marijuana, meth 10/10/2022 Lack of Transportation: YES Lack of Food: Sometimes True Current Housing: I Have Housing Concerned About Future Housing: Decline to Answer Difficulty Paying Gas/Electric Bills: YES Difficulty Paying for Meds: No Currently Unemployed: No Education: High School Diploma/GED Difficulty w/ Childcare or Family Care: No Additional living arrangements comments: Lives with her significant other. Additional occupation/education comments: On disability. Spiritual care concerns: No Exam Const: General: healthy appearing and no acute distress Nutritional Appearance: well nourished Orientation/consciousness: patient oriented x3 Limitations: no limitations HENMT: Head: normal to inspection Eyes: Conjunc
--- NOTE | 2023-11-14 10:08 | PC.NURSE ---
emily wrap being placed to left knee by freddie hess
== END 2023-11-14 10:20 | disposition home or self-care (01) ==
PROVIDERS: Emergency Provider Emergency Medicine; PCP Family Medicine
DX: S86.912A Strain of unspecified muscle(s) and tendon(s) at lower leg level, left leg, initial encounter (principal); E11.9 Type 2 diabetes mellitus without complications; E78.5 Hyperlipidemia, unspecified; I10 Essential (primary) hypertension; F17.210 Nicotine dependence, cigarettes, uncomplicated; W06.XXXA Fall from bed, initial encounter; Y92.003 Bedroom of unspecified non-institutional (private) residence as the place of occurrence of the external cause
CPT/HCPCS: 73562; 96372; 99283; J1885

== ENCOUNTER 2023-11-16 08:49 | Emergency (ER) | payer OTHER, SELFPAY ==
[2023-11-16 08:49] VITALS: BP 123/80; PULSE 89; RESP 16; TEMP 36.2; O2SAT 98
--- NOTE | 2023-11-16 08:58 | ED.LOWEXIN ---
HPI - Extremity Injury (Lower) General Chief Complaint: Extremity Injury, Lower Stated Complaint: left knee pain Time Seen by Provider: 11/16/23 08:53 History of Present Illness HPI Narrative: Pt was seen here last week after falling out of bed and landing on left knee. Pt had x rays showing osteoarthritis but no fx. Pt given toradol IM and sent home on Rx for naprosyn. Pt says naprosyn is not helping pain. Pt has not contacted PCP. Pt denies other injury or reinjury. Related Data Allergies Allergy/AdvReac Type Severity Reaction Status Date / Time fluconazole Allergy Severe Vomiting, Verified 11/16/23 08:51 DIZZINESS, DIARRHEA latex Allergy Intermediate Unknown Verified 11/16/23 08:51 Penicillins Allergy Intermediate Unknown Verified 11/16/23 08:51 propoxyphene [Darvocet-N 100] Allergy Intermediate Unknown Verified 11/16/23 08:51 Review of Systems Review of Systems: All systems reviewed & are unremarkable except as noted in HPI and below PMFSH Past Medical History Medical History Abdominal pain ADHD Bipolar disorder Depression Diabetic peripheral neuropathy RAJ (generalized anxiety disorder) Hyperlipidemia associated with type 2 diabetes mellitus Hypertension associated with diabetes Methamphetamine abuse Nicotine dependence Obesity Schizophrenia Tobacco dependence Type 2 diabetes mellitus Vitamin D deficiency Surgical History Surgical History History of bilateral tubal ligation (~2009) Hx of tonsillectomy (~1994) Status post open reduction with internal fixation of fracture (~2002) Right ankle fracture with subsequent removal hardware 4 years later Family History Family History Mother Ovarian cancer Diabetes mellitus Multiple sclerosis Grandparent Ovarian cancer Father Heart disease Leukemia Social History Social History Social History: She has smoked as much as 2 packs of cigarettes per day. She started smoking when she was 18. She is down to 1 pack of cigarettes per day. She does not drink any alcohol. She smokes marijuana daily. She has smoked and snorted methamphetamines for the last 7 years. She denies any other illicit substance use. She lives with her significant other. She has 9 cats and 3 dogs at home. She has a pit bull, husky and hound dog. Smoking packs per day: 1.5 Smoking cigarettes per day: 30.0 Years smoked: 23 Smoking pack-years: 34.50 Smoking status: Current every day smoker Tobacco type: cigarettes Additional smoking assessment comments: Patient stated she use to smoke 2 packs a day Alcohol intake: never Substance use: current Substance use type: marijuana, amphetamines, painkillers and methamphetamine Last use: 10/06/2021 marijuana, meth 10/10/2022 Lack of Transportation: YES Lack of Food: Sometimes True Current Housing: I Have Housing Concerned About Future Housing: Decline to Answer Difficulty Paying Gas/Electric Bills: YES Difficulty Paying for Meds: No Currently Unemployed: No Education: High School Diploma/GED Difficulty w/ Childcare or Family Care: No Additional living arrangements comments: Lives with her significant other. Additional occupation/education comments: On disability. Spiritual care concerns: No Exam Const: General: healthy appearing and no acute distress Nutritional Appearance: well nourished Orientation/consciousness: patient oriented x3 Limitations: no limitations Resp: Effort & Inspection: normal respiratory effort Auscultation: clear to auscultation bilaterally Cardio: Rate: regular rate Rhythm: regular rhythm GI: GI Palp: Yes Soft to palpation and No Tenderness to palpation present (GI) Auscultation: normal bowel sounds Neuro: General: patient valente
[2023-11-16 09:15] VITALS: BP 123/80; PULSE 89; RESP 16; TEMP 36.2; O2SAT 98
== END 2023-11-16 09:15 | disposition home or self-care (01) ==
PROVIDERS: Emergency Provider Emergency Medicine; PCP Family Medicine
DX: M25.562 Pain in left knee (principal); E78.5 Hyperlipidemia, unspecified; E11.9 Type 2 diabetes mellitus without complications; I10 Essential (primary) hypertension; F17.210 Nicotine dependence, cigarettes, uncomplicated; W06.XXXA Fall from bed, initial encounter
CPT/HCPCS: 99283

== ENCOUNTER 2023-11-26 15:44 | Emergency (ER) | payer OTHER, SELFPAY ==
[2023-11-26 15:48] VITALS: BP 141/97; PULSE 105; RESP 20; TEMP 36.9; O2SAT 100
--- NOTE | 2023-11-26 15:49 | ED.ANXIETY ---
HPI - Anxiety General Chief Complaint: Anxiety Stated Complaint: anxiety Source: patient Mode of arrival: ambulatory Limitations: no limitations History of Present Illness HPI narrative: this is a 43-year-old female history of diabetes presents with anxiety attack has had similar episodes in the past her vitals are stable O2 sats 100% on room air there is no chest pain or palpitations. The patient has allowed amount of antianxiety medication by her primary and has been out for the last couple of days and had a nightmare and since then has been having anxiety all morning and all afternoon. complaint: anxiety Onset (ago): hour(s) Severity: moderate Quality: constant Place: home Related Data Allergies Allergy/AdvReac Type Severity Reaction Status Date / Time fluconazole Allergy Severe Vomiting, Verified 11/16/23 08:51 DIZZINESS, DIARRHEA latex Allergy Intermediate Unknown Verified 11/16/23 08:51 Penicillins Allergy Intermediate Unknown Verified 11/16/23 08:51 propoxyphene [Darvocet-N 100] Allergy Intermediate Unknown Verified 11/16/23 08:51 Review of Systems Review of Systems: All systems reviewed & are unremarkable except as noted in HPI and below PMFSH Past Medical History Medical History Abdominal pain ADHD Bipolar disorder Depression Diabetic peripheral neuropathy RAJ (generalized anxiety disorder) Hyperlipidemia associated with type 2 diabetes mellitus Hypertension associated with diabetes Methamphetamine abuse Nicotine dependence Obesity Schizophrenia Tobacco dependence Type 2 diabetes mellitus Vitamin D deficiency Surgical History Surgical History History of bilateral tubal ligation (~2009) Hx of tonsillectomy (~1994) Status post open reduction with internal fixation of fracture (~2002) Right ankle fracture with subsequent removal hardware 4 years later Family History Family History Mother Ovarian cancer Diabetes mellitus Multiple sclerosis Grandparent Ovarian cancer Father Heart disease Leukemia Social History Social History Social History: She has smoked as much as 2 packs of cigarettes per day. She started smoking when she was 18. She is down to 1 pack of cigarettes per day. She does not drink any alcohol. She smokes marijuana daily. She has smoked and snorted methamphetamines for the last 7 years. She denies any other illicit substance use. She lives with her significant other. She has 9 cats and 3 dogs at home. She has a pit bull, husky and hound dog. Smoking packs per day: 1.5 Smoking cigarettes per day: 30.0 Years smoked: 23 Smoking pack-years: 34.50 Smoking status: Current every day smoker Tobacco type: cigarettes Additional smoking assessment comments: Patient stated she use to smoke 2 packs a day Alcohol intake: never Substance use: current Substance use type: marijuana and methamphetamine Last use: 10/06/2021 marijuana, meth 10/10/2022 Lack of Transportation: YES Lack of Food: Sometimes True Current Housing: I Have Housing Concerned About Future Housing: Decline to Answer Difficulty Paying Gas/Electric Bills: YES Difficulty Paying for Meds: No Currently Unemployed: No Education: High School Diploma/GED Difficulty w/ Childcare or Family Care: No Additional living arrangements comments: Lives with her significant other. Additional occupation/education comments: On disability. Spiritual care concerns: No Exam Const: General: healthy appearing and no acute distress Nutritional Appearance: well nourished Orientation/consciousness: patient oriented x3 Limitations: no limitations Eyes: Conjunctivae: conjunctivae normal Pupils: Equal, round and reactive pupils present Neck: Neck: normal
[2023-11-26] MEDS: ALPRAZolam (*CRX) 0.5 MG TABLET PO (15:52)
[2023-11-26 15:55] LABS: Glucose Point of Care 105 mg/dl (65-105)
== END 2023-11-26 16:04 | disposition home or self-care (01) ==
LOC: CHSED 15:58
PROVIDERS: Emergency Provider Emergency Medicine; PCP Family Medicine
DX: F41.9 Anxiety disorder, unspecified (principal); I10 Essential (primary) hypertension; E78.5 Hyperlipidemia, unspecified; F17.210 Nicotine dependence, cigarettes, uncomplicated
CPT/HCPCS: 82948; 99283; A9270

== ENCOUNTER 2023-12-29 09:21 | Emergency (ER) | payer OTHER, SELFPAY ==
[2023-12-29 09:26] VITALS: BP 131/87; PULSE 99; RESP 20; TEMP 36.7; O2SAT 100
--- NOTE | 2023-12-29 09:35 | ED.ANXIETY ---
HPI - Anxiety General Chief Complaint: Anxiety Stated Complaint: depression Time Seen by Provider: 12/29/23 09:35 Source: patient Mode of arrival: ambulatory Limitations: no limitations History of Present Illness HPI narrative: Patient is a 43-year-old female known to the emergency for recurrent visits for various complaints. She is known to use methamphetamines. She appears highly intoxicated at this time. She is nonsuicidal or homicidal. She complains of some anxiety. She has multiple complaints that do not correlate or make sense at this time. She was offered workup for the abdominal discomfort but said that she wants a review of her diabetes more importantly. She is having anxiety while on methamphetamines at this time per known history. MD complaint: anxiety Onset (ago): day(s) (1) Severity: mild Quality: constant Place: home History of similar episodes: Yes Provoking factors: other ( Methamphetamine use) Relieving factors: nothing Exacerbating factors: nothing Associated symptoms: denies other symptoms Related Data Allergies Allergy/AdvReac Type Severity Reaction Status Date / Time fluconazole Allergy Severe Vomiting, Verified 12/29/23 09:30 DIZZINESS, DIARRHEA latex Allergy Intermediate Unknown Verified 12/29/23 09:30 Penicillins Allergy Intermediate Unknown Verified 12/29/23 09:30 propoxyphene [Darvocet-N 100] Allergy Intermediate Unknown Verified 12/29/23 09:30 Review of Systems Review of Systems: All systems reviewed & are unremarkable except as noted in HPI and below Constitutional: Constitutional: Reports no additional constitutional complaints Eyes: Eyes: Reports no additional eye complaints ENT: Reports system reviewed and no additional complaints, except as documented Cardiovascular: Cardiovascular: Reports no additional cardiovascular complaints Respiratory: Respiratory: Reports no additional respiratory complaints Gastrointestinal: Gastrointestinal: Reports no additional gastrointestinal complaints Genitourinary: Genitourinary: Reports no additional female genitourinary complaints Musculoskeletal: Musculoskeletal: Reports no additional musculoskeletal complaints Integumentary/Breasts: Skin/Breast: Reports system reviewed and no additional complaints, except as docu Neurologic: Reports system reviewed and no additional complaints, except as documented Psychiatric: Psychiatric: Reports no additional psychiatric complaints Endocrine: Endocrine: Reports no additional endocrine complaints Hematologic/Lymphatic: Hematologic/Lymphatic: Reports no additional hematologic/lymphatic complaints Allergic/Immunologic: Allergic/Immunologic: Reports no additional allergic/immunologic complaints [facility] Past Medical History Medical History Abdominal pain ADHD Bipolar disorder Depression Diabetic peripheral neuropathy RAJ (generalized anxiety disorder) Hyperlipidemia associated with type 2 diabetes mellitus Hypertension associated with diabetes Methamphetamine abuse Nicotine dependence Obesity Schizophrenia Tobacco dependence Type 2 diabetes mellitus Vitamin D deficiency Surgical History Surgical History History of bilateral tubal ligation (~2009) Hx of tonsillectomy (~1994) Status post open reduction with internal fixation of fracture (~2002) Right ankle fracture with subsequent removal hardware 4 years later Family History Family History Mother Ovarian cancer Diabetes mellitus Multiple sclerosis Grandparent Ovarian cancer Father Heart disease Leukemia Social History Social History Social History: She has smoked as much as 2 packs of cigarettes per day. She started smoking when she was 18. She is down to 1 pack of cigarettes per day. She does not drink any alcohol. She smokes marijuana daily. She has smoked and snorted methamphetamines for the last 7 years. She denies any other illicit substance use. She lives with her significant other. She has 9 cats and 3 dogs at home. She has a pit bull, husky and hound dog. Smoking packs per day: 1.5 Smoking cigarettes per day: 30.0 Years smoked: 23 Smoking pack-years: 34.50 Smoking status: Current every day smoker Tobacco type: cigarettes Additional smoking assessment comments: Patient stated she use to smoke 2 packs a day Alcohol intake: never Substance use: current Substance use type: marijuana and methamphetamine Last use: 10/06/2021 marijuana, meth 10/10/2022 Lack of Transportation: YES Lack of Food: Sometimes True Current Housing: I Have Housing Concerned About Future Housing: Decline to Answer Difficulty Paying Gas/Electric Bills: YES Difficulty Paying for Meds: No Currently Unemployed: No Education: High School Diploma/GED Difficulty w/ Childcare or Family Care: No Additional living arrangements comments: Lives with her significant other. Additional occupation/education comments: On disability. Spiritual care concerns: No Exam Const: General: healthy appearing Nutritional Appearance: well nourished Orientation/consciousness: patient oriented x3 HENMT: Head: normal to inspection Ears: external ears normal Face/Nose/Sinus: Normal external nose present Eyes: Conjunctivae: conjunctivae normal Pupils: Equal, round and reactive pupils present EOM: EOMs intact bilaterally Neck: Neck: normal visual inspection Chest: Chest palpation & inspection: normal inspection of the chest Resp: Effort & Inspection: normal respiratory effort and not labored Auscultation: clear to auscultation bilaterally and no crackles Cardio: Rate: regular rate Rhythm: regular rhythm Heart sounds: no murmurs GI: Inspection: non-distended GI Palp: Yes Soft to palpation, No Tenderness to palpation present (GI), No Guarding due to palpation present (GI), No Rigid due to palpation, No Hernia present, No Palpable mass present and No Rebound tenderness present Auscultation: normal bowel sounds : General: Yes bladder normal to palpation Back/Spine/Pelvis: Back: no CVA tenderness Skin: General skin exam: normal color Rashes: no rashes Wounds: no wounds Neuro: General: patient oriented x3, moves all extremities, no meningeal signs, no focal motor deficits and CN's II-XI intact bilaterally Cranial nerves: Yes Nystagmus not present Speech: normal speech ( intoxicated/garbled /no teeth) Gait exam (Neuro): Normal gait present Extrem: General: normal to inspection, no clubbing, cyanosis or edema and no pedal edema Psych: Mental Status: mental status grossly normal Affect: Anxious affect present Attitude: not cooperative Other: patient is anxious and discusses about her divorce and a court case. No suicide or homicide ideation. Anxious. Course Vital Signs Vital signs: Vital Signs Temperature 36.7 C 12/29/23 09:26 Pulse Rate 99 12/29/23 09:26 Respiratory Rate 20 12/29/23 09:26 Blood Pressure 131/87 12/29/23 09:26 Pulse Oximetry 100 12/29/23 09:26 Oxygen Delivery Room Air 12/29/23 09:26 Temperature 36.7 C 12/29/23 09:26 Pulse Rate 99 12/29/23 09:26 Respiratory Rate 20 12/29/23 09:26 Blood Pressure 131/87 12/29/23 09:26 Pulse Oximetry 100 12/29/23 09:26 Oxygen Delivery Room Air 12/29/23 09:26 MDM - Anxiety MDM Narrative Medical decision making narrative: Patient is a 43-year-old female with anxiety. She is making multiple complaints that do not particularly make sense to the team. She specifically is stressed about her divorce. All in all, patient was given plenty of time to complain about medical problems but she decided to leave AMA at this time. She is AAO x3. She can make her own decisions at this time. She is having an acute stress reaction. Medically the patient appears to be intoxicated with methamphetamines. She was not driving. Discharge Plan Discharge Clinical Impression: Stress and adjustment reaction Patient Disposition: Left Against Medical Advice Condition: Stable Instructions: Anxiety (ED) Prescriptions: No Action (DME) OneTouch Ultra Test Strip See Rx Instructions .ROUTE .COMPLEX Qty: 360 5RF Dose Instruction: TESTING 4 TIMES A DAY Rx Instructions: TESTING 4 TIMES A DAY (DME) lancets [TRUEplus Lancets] 33 gauge misc See Rx Instructions .ROUTE .COMPLEX Qty: 100 5RF Dose Instruction: DIRECTED. TESTING 4 TIMES A DAY DX:E11.9 Rx Instructions: DIRECTED. TESTING 4 TIMES A DAY DX:E11.9 alprazolam [Xanax] 1 mg tablet 1 mg PO BID PRN (Reason: anxiety) Qty: 20 0RF dapagliflozin propanediol [Farxiga] 10 mg tablet See Rx Instructions .ROUTE .COMPLEX Qty: 90 3RF Dose Instruction: TAKE ONE TABLET BY MOUTH DAILY Rx Instructions: TAKE ONE TABLET BY MOUTH DAILY Trulicity 1.5 mg/0.5 mL pen injector 1.5 mg subcut WEEKLY Qty: 2 0RF metformin 1,000 mg tablet See Rx Instructions .ROUTE .COMPLEX Qty: 180 3RF Dose Instruction: TAKE ONE TABLET BY MOUTH TWICE A DAY Rx Instructions: TAKE ONE TABLET BY MOUTH TWICE A DAY duloxetine 60 mg capsule,delayed release(DR/EC) See Rx Instructions .ROUTE .COMPLEX Qty: 180 3RF Dose Instruction: TAKE TWO CAPSULES BY MOUTH EVERY MORNING Rx Instructions: TAKE TWO CAPSULES BY MOUTH EVERY MORNING (DME) blood-glucose meter [Blood Glucose Monitoring] Kit See Rx Instructions .Route Qty: 1 0RF Rx Instructions: As directed (DME) pen needle, diabetic [TRUEplus Pen Needle] 29 gauge x 1/2 needle See Rx Instructions .ROUTE .COMPLEX Qty: 100 5RF Dose Instruction: USING 3 TIMES A DAY Rx Instructions: USING 3 TIMES A DAY nicotine 21 mg/24 hr patch 24 hour 1 patch transdermal DAILY Qty: 28 0RF Rx Instructions: STEP 1 simvastatin 40 mg tablet See Rx Instructions .ROUTE .COMPLEX Qty: 90 2RF Dose Instruction: TAKE ONE TABLET BY MOUTH DAILY Rx Instructions: TAKE ONE TABLET BY MOUTH DAILY ziprasidone HCl 60 mg capsule See Rx Instructions .ROUTE .COMPLEX Qty: 180 0RF Dose Instruction: TAKE ONE TABLET BY MOUTH EVERY MORNING AND TWO EVERY EVENING Rx Instructions: TAKE ONE TABLET BY MOUTH EVERY MORNING AND TWO EVERY EVENING gabapentin 100 mg capsule See Rx Instructions .ROUTE .COMPLEX Qty: 180 0RF Dose Instruction: TAKE ONE CAPSULE BY MOUTH EVERY MORNING AND TAKE TWO CAPSULES BY MOUTH EVERY EVENING Rx Instructions: TAKE ONE CAPSULE BY MOUTH EVERY MORNING AND TAKE TWO CAPSULES BY MOUTH EVERY EVENING trazodone 100 mg tablet See Rx Instructions .ROUTE .COMPLEX Qty: 60 0RF Dose Instruction: TAKE TWO TABLETS BY MOUTH BEDTIME Rx Instructions: TAKE TWO TABLETS BY MOUTH BEDTIME atenolol 50 mg tablet See Rx Instructions .ROUTE .COMPLEX Qty: 30 0RF Dose Instruction: TAKE ONE TABLET BY MOUTH DAILY Rx Instructions: TAKE ONE TABLET BY MOUTH DAILY Follow-up/Referrals: Clark Graff DO [Primary Care Provider] - Time of Disposition: 10:00
== END 2023-12-29 09:49 | disposition left against medical advice (07) ==
LOC: CHSED 09:52
PROVIDERS: Emergency Provider Emergency Medicine; PCP Family Medicine
DX: F43.9 Reaction to severe stress, unspecified (principal); E11.9 Type 2 diabetes mellitus without complications; I10 Essential (primary) hypertension; E78.5 Hyperlipidemia, unspecified; F17.210 Nicotine dependence, cigarettes, uncomplicated
CPT/HCPCS: 99281

== ENCOUNTER 2024-01-25 15:11 | Emergency (ER) | payer OTHER, SELFPAY ==
[2024-01-25 15:11] VITALS: BP 132/90; PULSE 99; RESP 14; TEMP 36.4; O2SAT 100
--- NOTE | 2024-01-25 15:14 | ECG_ITS ---
Test Date: 2024-01-25 15:24:38 Measurements Intervals [place] Rate: 91 P: 71 [place]: 155 QRS: 47 QRSD: 93 T: 51 QT: 351 QTc: 432 Interpretive Statements SINUS RHYTHM BASELINE ARTIFACT- I, II, III, AVR, AVL, AVF NORMAL ECG No previous ECG available for comparison Electronically Signed On 01-25-2024 15:28:51 [employer] PROF[employer] by Tate Raya D.O.
[2024-01-25 15:30] VITALS: BP 121/81; PULSE 95; RESP 21; O2SAT 97
[2024-01-25 15:46] VITALS: BP 121/77; PULSE 93; RESP 20; O2SAT 97
--- NOTE | 2024-01-25 15:54 | PC.NURSE ---
PT HAS BEEN PROVIDED SODA AND ICE CREAM REQUESTED. PT IS SMILING AND LAUGHING WITH STAFF, THEN BECOMES ANXIOUS. LABILE MOODS ARE NOTED. PT IS COOPERATIVE. WILL CONTINUE TO MONITOR.
--- NOTE | 2024-01-25 15:56 | ED.ANXIETY ---
HPI - Anxiety General Chief Complaint: Anxiety Stated Complaint: CHEST PAIN Time Seen by Provider: 01/25/24 15:15 Source: patient Mode of arrival: ambulatory Limitations: no limitations History of Present Illness HPI narrative: 43 year old female presents to the Emergency Department complaining of chest tightness and some shortness of breath initially. Patient states she is just having anxiety and that she does not have chest pain or shortness of breath. She states she did initially from her anxiety. She states she has been out of her anxiety medication for 3 days already and cannot get it filled for another 2 days. Patient denies being suicidal or homicidal, but states she will say she is if she needs to to get treatment for her anxiety. MD complaint: anxiety Onset (ago): unknown (chronic) Symptoms: dyspnea (resolved) and chest pain (resolved) Quality: constant History of similar episodes: Yes Provoking factors: emotional stress and other (substance abuse) Relieving factors: medication Related Data Allergies Allergy/AdvReac Type Severity Reaction Status Date / Time fluconazole Allergy Severe Vomiting, Verified 01/25/24 15:36 DIZZINESS, DIARRHEA latex Allergy Intermediate Unknown Verified 01/25/24 15:36 Penicillins Allergy Intermediate Unknown Verified 01/25/24 15:36 propoxyphene [Darvocet-N 100] Allergy Intermediate Unknown Verified 01/25/24 15:36 Review of Systems Review of Systems: All systems reviewed & are unremarkable except as noted in HPI and below Constitutional: Constitutional: Reports as per HPI, Denies chills and Denies fever(s) Eyes: Eyes: Reports as per HPI ENT: Reports system reviewed and no additional complaints, except as documented Cardiovascular: Cardiovascular: Reports as per HPI and Reports chest pain (tightness resolved) Respiratory: Respiratory: Reports as per HPI and Reports dyspnea (pulse ox 100%) Gastrointestinal: Gastrointestinal: Reports as per HPI, Denies diarrhea, Denies nausea and Denies vomiting Genitourinary: Genitourinary: Reports no additional female genitourinary complaints and Denies dysuria Musculoskeletal: Musculoskeletal: Reports no additional musculoskeletal complaints Integumentary/Breasts: Skin/Breast: Reports system reviewed and no additional complaints, except as docu Neurologic: Reports system reviewed and no additional complaints, except as documented Psychiatric: Psychiatric: Reports no additional psychiatric complaints, Reports anxiety, Denies homicidal ideation and Denies suicidal ideation Endocrine: Endocrine: Reports no additional endocrine complaints Hematologic/Lymphatic: Hematologic/Lymphatic: Reports no additional hematologic/lymphatic complaints Allergic/Immunologic: Allergic/Immunologic: Reports no additional allergic/immunologic complaints [facility] Past Medical History Medical History Abdominal pain ADHD Bipolar disorder Depression Diabetic peripheral neuropathy RAJ (generalized anxiety disorder) Hyperlipidemia associated with type 2 diabetes mellitus Hypertension associated with diabetes Methamphetamine abuse Nicotine dependence Obesity Schizophrenia Tobacco dependence Type 2 diabetes mellitus Vitamin D deficiency Surgical History Surgical History History of bilateral tubal ligation (~2009) Hx of tonsillectomy (~1994) Status post open reduction with internal fixation of fracture (~2002) Right ankle fracture with subsequent removal hardware 4 years later Family History Family History Mother Ovarian cancer Diabetes mellitus Multiple sclerosis Grandparent Ovarian cancer Father Heart disease Leukemia Social History Social History Social History: She has smoked as much as 2 packs of cigarettes per day. She started smoking when she was 18. She is down to 1 pack of cigarettes per day. She does not drink any alcohol. She smokes marijuana daily. She has smoked and snorted methamphetamines for the last 7 years. She denies any other illicit substance use. She lives with her significant other. She has 9 cats and 3 dogs at home. She has a pit bull, husky and hound dog. Smoking packs per day: 1.5 Smoking cigarettes per day: 30.0 Years smoked: 23 Smoking pack-years: 34.50 Smoking status: Current every day smoker Tobacco type: cigarettes Additional smoking assessment comments: Patient stated she use to smoke 2 packs a day Alcohol intake: never Substance use: current Substance use type: methamphetamine Last use: 10/06/2021 marijuana, meth 10/10/2022 Lack of Transportation: YES Lack of Food: Sometimes True Current Housing: I Have Housing Concerned About Future Housing: Decline to Answer Difficulty Paying Gas/Electric Bills: YES Difficulty Paying for Meds: No Currently Unemployed: No Education: High School Diploma/GED Difficulty w/ Childcare or Family Care: No Additional living arrangements comments: Lives with her significant other. Additional occupation/education comments: On disability. Spiritual care concerns: No Exam Const: Nutritional Appearance: obese Orientation/consciousness: patient oriented x3 Limitations: behavioral limitations Other: anxious HENMT: Head: normal to inspection Ears: external ears normal Face/Nose/Sinus: Normal external nose present Face and sinus: normal facial exam Mouth: Yes Normal oral and palatal mucosa present Throat: posterior oropharynx normal Eyes: Conjunctivae: conjunctivae normal Pupils: Equal, round and reactive pupils present EOM: EOMs intact bilaterally Direct Ophthalmoscopy: no photophobia Neck: Neck: normal visual inspection and no meningeal signs Chest: Chest palpation & inspection: normal inspection of the chest Resp: Effort & Inspection: normal respiratory effort Auscultation: clear to auscultation bilaterally Cardio: Rate: regular rate Rhythm: regular rhythm Heart sounds: no murmurs GI: Inspection: non-distended GI Palp: Yes Soft to palpation and No Tenderness to palpation present (GI) Back/Spine/Pelvis: Back: no CVA tenderness Skin: General skin exam: normal color Rashes: no rashes Neuro: General: patient oriented x3, moves all extremities, no meningeal signs, no focal motor deficits and CN's II-XI intact bilaterally Cranial nerves: Yes Nystagmus not present Other: anxious Extrem: General: normal to inspection and no clubbing, cyanosis or edema Psych: Affect: Anxious affect present Course Course Emergency Course: 43 y/o female presents to the ED stating she is out of her anxiety medication for 3 days and cannot get it filled for 2 more days. States having difficulty sleeping. States had chest tightness and shortness of breath from anxiety earlier, but resolved. Denies homicidal or suicidal ideation. PE: anxious EKG: NSR, 91, NAC UDS: +THC *Patient had Rx for Alprazolam 0.5 mg filled on 01/13/24 for #28. Supposed to take bid. Refill date 01/27/24. [since patient has been out of her medication for 3 days already, she essentially took a 14 day supply in 8-9 days] *patient states I do not misuse my medication. Advised she received a 14 day supply that she took in 8-9 days, so she is not taking appropriately. Patient states she is having anxiety attack now and what are you going to do about it? Advised patient she will need to get her medication filled on 01/26, when it is due, and take appropriately. Patient states, well, then I'm suicidal and you have to treat me. Advised patient she adamantly states she was not suicidal and that she said earlier she would say she is if that would get her medication. Advised will not give her medication. Advised patient we will have her worked up and evaluated by [facility] if she is suicidal, but will not give her medication or refill her anxiety medication. Patient state she will leave then if she is not going to get any medication. Vital Signs Vital signs: Vital Signs Temperature 36.4 C 01/25/24 15:11 Pulse Rate 99 01/25/24 15:11 Respiratory Rate 14 01/25/24 15:11 Blood Pressure 132/90 01/25/24 15:11 Pulse Oximetry 100 01/25/24 15:11 Oxygen Delivery Room Air 01/25/24 15:11 Temperature 36.4 C 01/25/24 15:11 Pulse Rate 93 01/25/24 16:15 Respiratory Rate 18 01/25/24 16:15 Blood Pressure 121/77 01/25/24 15:46 Pulse Oximetry 97 01/25/24 16:15 Oxygen Delivery Room Air 01/25/24 15:11 MDM - Anxiety Lab Data Labs: Lab Results 01/25/24 Range/Units 15:30 Urine Opiates Screen Negative (Negative) Urine Methadone Screen Negative (Negative) Ur Barbiturates Screen Negative (Negative) Ur Phencyclidine Scrn Negative (Negative) Ur Amphetamine Screen Negative (Negative) U Benzodiazepines Scrn Negative (Negative) Urine Cocaine Screen Negative (Negative) U Cannabinoids Screen Positive A (Negative) Discharge Plan Discharge Clinical Impression: Anxiety, Misuse of medication Patient Disposition: Home, Self-Care Condition: Stable Instructions: Antibiotic Form, Anxiety (ED) Additional Instructions: Refill your medication on 01/26 when available and take according to instructions Follow up Primary Care Physician Patient Language: Maltese Prescriptions: No Action (DME) OneTouch Ultra Test Strip See Rx Instructions .ROUTE .COMPLEX Qty: 360 5RF Dose Instruction: TESTING 4 TIMES A DAY Rx Instructions: TESTING 4 TIMES A DAY (DME) lancets [TRUEplus Lancets] 33 gauge misc See Rx Instructions .ROUTE .COMPLEX Qty: 100 5RF Dose Instruction: DIRECTED. TESTING 4 TIMES A DAY DX:E11.9 Rx Instructions: DIRECTED. TESTING 4 TIMES A DAY DX:E11.9 alprazolam [Xanax] 1 mg tablet 1 mg PO BID PRN (Reason: anxiety) Qty: 20 0RF dapagliflozin propanediol [Farxiga] 10 mg tablet See Rx Instructions .ROUTE .COMPLEX Qty: 90 3RF Dose Instruction: TAKE ONE TABLET BY MOUTH DAILY Rx Instructions: TAKE ONE TABLET BY MOUTH DAILY (DME) blood-glucose meter [Blood Glucose Monitoring] Kit See Rx Instructions .Route Qty: 1 0RF Rx Instructions: As directed (DME) pen needle, diabetic [TRUEplus Pen Needle] 29 gauge x 1/2 needle See Rx Instructions .ROUTE .COMPLEX Qty: 100 5RF Dose Instruction: USING 3 TIMES A DAY Rx Instructions: USING 3 TIMES A DAY simvastatin 40 mg tablet See Rx Instructions .ROUTE .COMPLEX Qty: 90 2RF Dose Instruction: TAKE ONE TABLET BY MOUTH DAILY Rx Instructions: TAKE ONE TABLET BY MOUTH DAILY ziprasidone HCl 60 mg capsule See Rx Instructions .ROUTE .COMPLEX Qty: 180 0RF Dose Instruction: TAKE ONE TABLET BY MOUTH EVERY MORNING AND TWO EVERY EVENING Rx Instructions: TAKE ONE TABLET BY MOUTH EVERY MORNING AND TWO EVERY EVENING clotrimazole 1 % cream 1 applic topical Q12H 28 Days Qty: 45 0RF miconazole nitrate 200 mg suppository 200 mg vaginal QHS 3 Days Qty: 3 1RF nicotine 21 mg/24 hr patch 24 hour 1 patch transdermal DAILY Qty: 28 0RF Rx Instructions: STEP 1 Trulicity 1.5 mg/0.5 mL pen injector See Rx Instructions .ROUTE .COMPLEX Qty: 2 1RF Dose Instruction: 1.5 MG (0.5 ML) SUBCUTANEOUSLY WEEKLY Rx Instructions: 1.5 MG (0.5 ML) SUBCUTANEOUSLY WEEKLY atenolol 50 mg tablet See Rx Instructions .ROUTE .COMPLEX Qty: 30 0RF Dose Instruction: TAKE ONE TABLET BY MOUTH DAILY Rx Instructions: TAKE ONE TABLET BY MOUTH DAILY duloxetine 60 mg capsule,delayed release(DR/EC) See Rx Instructions .ROUTE .COMPLEX Qty: 180 3RF Dose Instruction: TAKE TWO CAPSULES BY MOUTH EVERY MORNING Rx Instructions: TAKE TWO CAPSULES BY MOUTH EVERY MORNING metformin 1,000 mg tablet See Rx Instructions .ROUTE .COMPLEX Qty: 180 3RF Dose Instruction: TAKE ONE TABLET BY MOUTH TWICE A DAY Rx Instructions: TAKE ONE TABLET BY MOUTH TWICE A DAY trazodone 100 mg tablet See Rx Instructions .ROUTE .COMPLEX Qty: 60 0RF Dose Instruction: TAKE TWO TABLETS BY MOUTH BEDTIME Rx Instructions: TAKE TWO TABLETS BY MOUTH BEDTIME gabapentin 100 mg capsule See Rx Instructions .ROUTE .COMPLEX Qty: 180 0RF Dose Instruction: TAKE ONE CAPSULE BY MOUTH EVERY MORNING AND TAKE TWO CAPSULES BY MOUTH EVERY EVENING Rx Instructions: TAKE ONE CAPSULE BY MOUTH EVERY MORNING AND TAKE TWO CAPSULES BY MOUTH EVERY EVENING Follow-up/Referrals: Clark Graff DO [Primary Care Provider] - Time of Disposition: 16:38
[2024-01-25 16:15] VITALS: PULSE 93; RESP 18; O2SAT 97
[2024-01-25 16:21] LABS: Amphetamine Screen Urine Negative (Negative); Barbiturate Screen Urine Negative (Negative); Benzodiazepines Screen Urine Negative (Negative); Cannabinoid Screen Urine Positive (Negative); Cocaine Screen Urine Negative (Negative); Methadone Screen Urine Negative (Negative); Opiate Screen Urine Negative (Negative); Phencyclidine Screen Urine Negative (Negative)
--- NOTE | 2024-01-25 16:25 | PC.NURSE ---
PT IS LYING ON STRETCHER WITH WARM BLANKET, LIGHTS OFF. PT REPORTS THE BEES ARE BUZZING IN MY HEAD. PT IS AWAITING ERP DECISION. WILL CONTINUE TO MONITOR.
--- NOTE | 2024-01-25 16:42 | PC.NURSE ---
WHEN EXPLAINED THAT ERP WAS NOT GOING TO BE GIVING HER ANXIETY MEDICATION UPON DC, PT STATES SHE THINKS SHE MIGHT BE SUICIDAL, DOES NOT HAVE A PLAN. HOWEVER THEN STATES I DON'T WANT TO , I WANT TO LIVE. ERP IS AWARE, SPEAKS WITH PT WHO IS UPSET THAT SHE IS NOT GETTING ANXIETY MEDICATION, OFFERS PT TO BE EVALUATED PER BRENNEN DURHAM. PT DECLINES EVALUATION IF I CAN'T HAVE ANY ANXIETY MEDICATION. PT DOES DENY SUICIDAL IDEATIONS. CALLS HER FOR A RIDE, STATING THEY ARE THROWING ME OUT IN THE COLD, NO I DIDN'T GET A RX SINCE I AM NOT SUICIDAL. CAN YOU COME GET ME, BRING ME A CIGARETTE AND MY MEDICATIONS. PT IS COOPERATIVE, AMBULATES OUT OF ED TO WAITING AREA TO AWAIT FOR TRANSPORT.
== END 2024-01-25 16:40 | disposition home or self-care (01) ==
PROVIDERS: Emergency Provider Emergency Medicine; PCP Family Medicine
DX: F41.9 Anxiety disorder, unspecified (principal); F19.10 Other psychoactive substance abuse, uncomplicated; E11.9 Type 2 diabetes mellitus without complications; I10 Essential (primary) hypertension; E78.5 Hyperlipidemia, unspecified; F20.9 Schizophrenia, unspecified; F17.210 Nicotine dependence, cigarettes, uncomplicated; Z79.899 Other long term (current) drug therapy
CPT/HCPCS: 80307; 93005; 99284

== ENCOUNTER 2024-02-12 18:16 | Emergency (ER) | payer OTHER, SELFPAY ==
--- NOTE | 2024-02-12 18:35 | ECG_ITS ---
Test Date: 2024-02-12 19:07:51 Measurements Intervals Jones Rate: 96 P: 18 KS: 135 QRS: 0 QRSD: 92 T: 0 QT: 343 QTc: 434 Interpretive Statements SINUS RHYTHM POSSIBLE LEFT ATRIAL ENLARGEMENT [-0.1mV P-WAVE IN V1/V2] INDETERMINATE AXIS LOW QRS VOLTAGE IN EXTREMITY LEADS [QRS DEFLECTION < 0.5 mV IN LIMB LEADS] INCOMPLETE RIGHT BUNDLE BRANCH BLOCK [90+ ms QRS DURATION, TERMINAL R IN V1/V2, 40+ ms S IN I/aVL/V4/V5/V6] Compared to ECG 01/25/2024 15:24:38 Indeterminate axis now present Low QRS voltage now present Incomplete right bundle-branch block now present Electronically Signed On 02-15-2024 11:57:22 [employer] by Stefano Laurent M.D.
[2024-02-12 18:36] VITALS: BP 159/95; PULSE 95; RESP 24; TEMP 36.8; O2SAT 99
[2024-02-12 18:45] LABS: Add Urine Microscopic? YES; Appearance Urine Clear (Clear); Bilirubin Urine Negative (Negative); Blood Urine 2+ (Negative); Color Urine Yellow (Yellow); Glucose Urine UA 3+ (Negative); Ketones Urine Trace (Negative); Leukocyte Esterase Ur Negative LEU/UL (Negative); Nitrate Urine Negative (Negative); Protein Urine Negative (Negative); Specific Grav Ur >= 1.030 (1.010-1.020); Urobilinogen Urine 0.2 mg/dL (0.2-1.0)
[2024-02-12] MEDS: LORazepam INJ (*CRX) 2 MG/ML VIAL 1 MG IM (18:51)
[2024-02-12 18:52] LABS: Amphetamine Screen Urine Positive (Negative); Barbiturate Screen Urine Negative (Negative); Benzodiazepines Screen Urine Positive (Negative); Cannabinoid Screen Urine Positive (Negative); Cocaine Screen Urine Negative (Negative); Methadone Screen Urine Negative (Negative); Opiate Screen Urine Negative (Negative); Phencyclidine Screen Urine Negative (Negative)
--- NOTE | 2024-02-12 18:53 | PC.NURSE ---
ASSUMED CARE. REPORT RECEIVED FROM SANJIV ARZATE. PATIENT RESTLESS ON STRETCHER. FREQUENT REMINDERS TO KEEP ARM ON THE RAIL AND TO NOT THROW BLANKET SO HER IV LINE WONT COME OUT. CURTAIN REMAINS OPEN FOR ENHANCED VISUALIZATION.
[2024-02-12 18:54] LABS: Basophils Absolute Auto 0.07 K/mm3 (0.00-0.10); Basophils Percent Auto 0.7 % (0.0-1.0); Eosinophils Absolute Auto 0.23 K/mm3 (0.02-0.50); Eosinophils Percent Auto 2.3 % (1.0-6.0); Hematocrit 43.2 % (35.0-49.0); Hemoglobin 14.8 g/dL (12.0-15.0); Immature Granulocyte Absolute 0.04 K/mm3 (0.00-0.00); Immature Granulocyte Percent A 0.4 % (0.0-0.0); Lymphocytes Absolute Auto 2.93 K/mm3 (1.10-4.50); Lymphocytes Percent Auto 28.8 % (18.0-42.0); Mean Corpuscular HGB Conc 34.3 g/dL (32-36); Mean Corpuscular Hemoglobin 28.7 pg (27.0-31.0); Mean Corpuscular Volume 83.9 fL (78.0-102.0); Monocytes Absolute Auto 0.66 K/mm3 (0.10-0.90); Monocytes Percent Auto 6.5 % (2.0-11.0); Neutrophils Absolute Auto 6.24 K/mm3 (1.70-7.20); Neutrophils Percent Auto 61.3 % (50.0-70.0); Platelet Count Result 438 K/mm3 (150-420); Red Blood Count 5.15 M/mm3 (4.20-5.40); Red Cell Distribution Width 12.8 % (11.6-14.4); White Blood Count 10.2 K/mm3 (4.8-10.8)
--- NOTE | 2024-02-12 18:54 | PC.NURSE ---
UNABLE TO KEEP PATIENT ON GLEASON OPERATOR DUE TO RESTLESSNESS AND PULLING MONITOR CABLES OFF. DOOR AND CURTAIN REMAIN OPEN FOR ENHANCED MONITORING. CLOSE TO NURSES STATION.
[2024-02-12 18:55] LABS: Bacteria Urine Trace /hpf; Squamous Epithelial Cell Urine Few /hpf (Few); WBC Urine 0-3 /hpf (0-3)
[2024-02-12] MEDS: SODIUM CHLORIDE 0.9% IV 1,000 ML 999 ML IV CONT ×2 (18:55→20:30)
--- NOTE | 2024-02-12 19:04 | PC.NURSE ---
report to vicki romeo
[2024-02-12 19:09] LABS: Alanine Aminotransferase 29 U/L (14-59); Albumin Level 4.3 g/dL (3.4-5.0); Alkaline Phosphatase 70 U/L (46-116); Ammonia 19 umol/L (11-32); Anion Gap 10 mmol/L (4-12); Aspartate Amino Transferase 24 U/L (15-37); Bilirubin,Total 0.6 mg/dL (0.00-1.00); Blood Urea Nitrogen 23 mg/dL (7-18); Carbon Dioxide 29 mmol/L (21-32); Chloride 98 mmol/L (98-108); Estimated CRCL calculation 99 ml/min; Estimated Glomerular Filt Rate > 60; Glucose 108 mg/dL (70-99); Magnesium 1.4 mg/dL (1.8-2.4); Osmolality Calculated 288 mOsm/kg (285-295); Phosphorus 5.3 mg/dL (2.6-4.7); Potassium 3.8 mmol/L (3.5-5.1); Sodium 137 mmol/L (136-145); Total Protein 7.8 g/dL (6.4-8.2)
[2024-02-12 19:10] LABS: Acetaminophen < 2 ug/mL (10-30); Ethanol < 3 mg/dL (0-6)
--- NOTE | 2024-02-12 19:29 | PC.NURSE ---
PATIENT WAS GIVEN WATER BY [employer]. WATER WAS GOING TO BE PLACED ON COUNTER SO SHE WOULD NOT SPILL IT ON HERSELF. PATIENT THEN CALLED SEJAL KOENIG A BITCH. INFORMED PATIENT THAT LANGUAGE WOULD NOT BE TOLERATED.
[2024-02-12] MEDS: MAGNESIUM SULF 2 GM/WATER 50ML 2 GM/50 ML BAG IVPB (19:45)
--- NOTE | 2024-02-12 19:51 | PC.NURSE ---
PATIENT REQUESTING TO SEE MENTAL HEALTH. PATIENT ALSO SINGING [employer] SONGS
--- NOTE | 2024-02-12 20:19 | PC.NURSE ---
PATIENT EATING A SANDWICH AND DRINKING MILK. MOVING AROUND ALL OVER THE BED BUT IS REDIRECTABLE. COOPERATIVE. IV MAGNESIUM CONTINUES TO INFUSE TO RIGHT WRIST. NO REDNESS OR SWELLING IS NOTED. CURTAIN REMAINS OPEN FOR ENHANCED MONITORING.
--- NOTE | 2024-02-12 20:54 | PC.NURSE ---
PATIENT REQUESTING HER NIGHT TIME MEDICATIONS. NOTIFIED ER PROVIDER
--- NOTE | 2024-02-12 21:12 | PC.NURSE ---
PATIENT IS LAYING ON STRETCHER WITH BOTH LEGS OVER THE RAILS. PATIENT IS NOT TRYING TO GET UP OR CLIMB OVER THE RAILS. ONLY RESTING HER LEGS. REQUESTED HER NIGHT MEDICATIONS AGAIN. DR BELTRAN HAS BEEN NOTIFIED
--- NOTE | 2024-02-12 21:49 | PC.NURSE ---
PATIENT GOT UP AND AMBULATED HERSELF TO THE BATHROOM. SEJAL KOENIG, WALKED WITH PATIENT. STEADY GAIT. LAUGHING AND TALKING.
--- NOTE | 2024-02-12 21:50 | PC.NURSE ---
PATIENT PULLED IV LINE OUT. PATIENT GOT SCARED. STAFF HELPING PATIENT GET CLEANED UP. BLEEDING TO RIGHT WRIST CONTROLLED WITH GAUZE AND COBAN. PATIENT ARMS CLEANED AND NEW LINENS PLACED ON BED. PATIENT PROMPTLY REMOVED LINENS AND LAID ON PLASTIC MATTRESS.
--- NOTE | 2024-02-12 21:57 | PC.NURSE ---
PATIENT REQUESTED NIGHT TIME MEDICATIONS AGAIN. NOTIFIED DR BELTRAN. VERBAL ORDER GIVEN TO PLACE TRAZODONE 100MG PO AND GEODON 40 MG PO
[2024-02-12] MEDS: traZODone HCL 50 MG TABLET 100 MG PO (22:14)
[2024-02-12] MEDS: ZIPRASIDONE HCL 20 MG CAPSULE 40 MG PO (22:14)
--- NOTE | 2024-02-12 22:27 | PC.NURSE ---
INFORMED PATIENT THAT SHE WILL BE DISCHARGED SOON. ASKED PATIENT WHO THIS RN COULD CALL FOR A RIDE. PATIENT STARTED TO GET FRANTIC STATING SHE CANT GO HOME. I AM HOMICIDAL, I WILL KILL EVERYONE AT HOME. I CANT GO THERE. I NEED TO TALK TO MENTAL HEALTH. I AM STAYING HERE UNTIL TOMORROW . PATIENT IS A&OX3 AT THIS TIME. AMBULATES WITHOUT DIFFICULTY TO THE BATHROOM AND BACK TO THE ROOM. AMBULATES AROUND THE ROOM. HAS BEEN EATING AND DRINKING.
--- NOTE | 2024-02-12 22:38 | PC.NURSE ---
DR BELTRAN AT THE BEDSIDE
--- NOTE | 2024-02-12 23:08 | PC.NURSE ---
PATIENT HAS BEEN CHANGED INTO THE PSYCH SCRUBS DUE TO HOMICIDAL IDEATION. PATIENT IS CURRENLTY LAYING ON THE BED. CALM AND COOPERATIVE. ER PROVIDER DEEMS THAT PATIENT REQUIRES PSYCH EVALUATION IN THE AM WHEN SHE IS IN A MORE STABLE STATE OF MIND,
[2024-02-12] MEDS: HALOPERIDOL LACTATE 5 MG/ML VIAL IM (23:15)
[2024-02-12] MEDS: LORazepam INJ (*CRX) 2 MG/ML VIAL IM (23:15)
[2024-02-12 23:35] LABS: Thyroid Stimulating Hormone 1.51 uIU/mL (0.36-3.74)
[2024-02-12 23:36] LABS: Salicylate 1.7 mg/dL (2.8-20.0)
--- NOTE | 2024-02-12 23:37 | PC.NURSE ---
PATIENT IS CURRENTLY RESTING ON STRETCHER. TALKING TO HERSELF. MUMBLING
--- NOTE | 2024-02-12 23:59 | PC.NURSE ---
PATIENT CONTINUES TO BE RESTLESS ON THE STRETCHER. TOSSING AND TURNING. RESP EVEN AND UNLABORED. PATIENT HAS CALL LIGHT. GLASS DOOR CLOSED BUT CURTAIN REMAINS OPEN FOR MONITORING.
[2024-02-13 00:07] VITALS: BP 101/60; PULSE 106; RESP 18; TEMP 36.5; O2SAT 94
--- NOTE | 2024-02-13 00:16 | PC.NURSE ---
PATIENT REQUESTED NICOTINE PATCH. VERBAL ORDER RECEIVED FROM DR BELTRAN. INFORMED PATIENT THAT IT IS AFTER MIDNIGHT. NO MORE SNACKS OR DRINKS. THAT SHE IS TO GO TO BED. PATIENT STATES OK
[2024-02-13] MEDS: NICOTINE (*PBKC) 21 MG PATCH 1 PATCH TRANSDERM (00:20)
--- NOTE | 2024-02-13 01:00 | PC.NURSE ---
PATIENT IS RESTING ON STRETCHER. CONTINUES TO FLOP AROUND. RESTLESS. CALL LIGHT IN REACH. CURTAIN OPEN, GLASS DOOR CLOSED. MONITORED BY STAFF.
--- NOTE | 2024-02-13 02:01 | PC.NURSE ---
PATIENT APPEARS TO BE SLEEPING. RESP EVEN AND UNLABORED. CURTAIN REMAINS OPEN. GLASS DOOR CLOSED. MONITORED BY STAFF. CALL LIGHT IN REACH
--- NOTE | 2024-02-13 03:00 | PC.NURSE ---
PATIENT APPEARS TO BE SLEEPING. RESP EVEN AND UNLABORED. CURTAIN REMAINS OPEN. GLASS DOOR CLOSED. PATIENT BEING MONITORED BY STAFF. CALL LIGHT IN REACH
--- NOTE | 2024-02-13 04:00 | PC.NURSE ---
ADDITIONAL WARM BLANKET WAS GIVEN. TEMP IN ROOM INCREASED. PATIENT REPORTED THAT SHE WAS COLD. CURTAIN REMAINS OPEN. GLASS DOOR CLOSED. CALL LIGHT IN [facility].
--- NOTE | 2024-02-13 05:00 | PC.NURSE ---
PATIENT APPEARS TO BE SLEEPING. RESP EVEN AND UNLABORED. CALL LIGHT IN REACH. CURTAIN LEFT OPEN. GLASS DOOR CLOSED. MONITORED BY STAFF
--- NOTE | 2024-02-13 06:04 | PC.NURSE ---
PATIENT AMBULATED TO THE BATHROOM AND BACK TO ROOM. REQUESTED WATER. GIVEN. WILL OBTAIN VITAL SIGNS WHILE PATIENT IS AWAKE.
[2024-02-13 06:18] VITALS: BP 106/70; PULSE 102; RESP 18; TEMP 36.5; O2SAT 92
--- NOTE | 2024-02-13 06:19 | PC.NURSE ---
PATIENT IS A&O X 3. STATES SHE CONTINUES TO WANT TO SPEAK TO MENTAL HEALTH. STATES THAT SHE CAN NOT GO HOME DUE TO THE DRUGS AT THE HOME. STATES SHE NEEDS TO GO TO REHAB. ASKED PATIENT HOW SHE IS FEELING AT THIS TIME. STATES BLESSED. HAPPY TO BE ALIVE . WESLEY CRACKERS AND MILK GIVEN. CURTAIN REMAINS OPEN, GLASS DOOR CLOSED. MONITORED BY STAFF.
--- NOTE | 2024-02-13 06:31 | ED.AMS ---
HPI - Altered Mental Status General Chief Complaint: Altered Mental Status <Danny Fabian MD - Last Filed: 02/13/24 06:40> Stated Complaint: meth abuse <Danny Fabian MD - Last Filed: 02/13/24 06:40> Time Seen by Provider: 02/13/24 07:02 <Danny Fabian MD - Last Filed: 02/13/24 06:40> Source: patient <Danny Fabian MD - Last Filed: 02/13/24 06:40> Mode of arrival: ambulatory <Danny Fabian MD - Last Filed: 02/13/24 06:40> Limitations: no limitations <Danny Fabian MD - Last Filed: 02/13/24 06:40> History of Present Illness HPI narrative: patient is a 43-year-old female with significant past medical history that presents today with altered mental status and drug use. Patient uses methamphetamines and was healed wound a lot and that she could not sit still and call 911 come get her because she could not sit still. Emergency department she was not combative but was very moved around a lot and coming down had to give her some Ativan. She did eventually convert now more and with her own may give her some home well and some advanced she would go to sleep. before all this happened she did say that she was homicidal and did not want to go home and she said that she went home she was in a kill her family. We cannot tell she has 1 to stay here and not leaving turned this into a psych issue because she knew she could do that it may relate a system that she because she says she was homicidal we had a pincer her and she needs be seen still by psych. <Danny Fabian MD - Last Filed: 02/13/24 06:40> MD complaint: altered mental status and confusion <Danny Fabian MD - Last Filed: 02/13/24 06:40> Onset (ago): hour(s) <Danny Fabian MD - Last Filed: 02/13/24 06:40> Severity: moderate <Danny Fabian MD - Last Filed: 02/13/24 06:40> Consistency of symptoms: waxing and waning <Danny Fabian MD - Last Filed: 02/13/24 06:40> Context: history of similar presentation and other ( methamphetamine abuse) <Danny Fabian MD - Last Filed: 02/13/24 06:40> Associated symptoms: cough and diaphoresis <Danny Fabian MD - Last Filed: 02/13/24 06:40> Treatments prior to arrival: IV fluid <Danny Fabian MD - Last Filed: 02/13/24 06:40> Related Data Home Medications: Home Medications ?Medication ?Instructions ?Recorded ?Confirmed ?Last Taken ?Type ziprasidone HCl 60 mg capsule 120 mg PO BID 02/12/24 02/12/24 02[facility]11[facility] <Danny Fabian MD - Last Filed: 02/13/24 06:40> Allergies/Adverse Reactions: Allergies Allergy/AdvReac Type Severity Reaction Status Date / Time fluconazole Allergy Severe Vomiting, Verified 01/25/24 15:36 DIZZINESS, DIARRHEA latex Allergy Intermediate Unknown Verified 01/25/24 15:36 Penicillins Allergy Intermediate Unknown Verified 01/25/24 15:36 propoxyphene (Darvocet-N 100) Allergy Intermediate Unknown Verified 01/25/24 15:36 <Danny Fabian MD - Last Filed: 02/13/24 06:40> Review of Systems Review of Systems: All systems reviewed & are unremarkable except as noted in HPI and below <Danny Fabian MD - Last Filed: 02/13/24 06:40> Constitutional: Constitutional: Reports as per HPI <Danny Fabian MD - Last Filed: 02/13/24 06:40> Eyes: Eyes: Reports as per HPI <Danny Fabian MD - Last Filed: 02/13/24 06:40> ENT: Reports system reviewed and no additional complaints, except as documented <Danny Fabian MD - Last Filed: 02/13/24 06:40> Cardiovascular: Cardiovascular: Reports no additional cardiovascular complaints <Danny Fabian MD - Last Filed: 02/13/24 06:40> Respiratory: Respiratory: Reports no additional respiratory complaints <Danny Fabian MD - Last Filed: 02/13/24 06:40> Gastrointestinal: Gastrointestinal: Reports no additional gastrointestinal complaints <Danny Fabian MD - Last Filed: 02/13/24 06:40> Genitourinary: Genitourinary: Reports no additional female genitourinary complaints <Danny Fabian MD - Last Filed: 02/13/24 06:40> Musculoskeletal: Musculoskeletal: Reports no additional musculoskeletal complaints <Danny Fabian MD - Last Filed: 02/13/24 06:40> Integumentary/Breasts: Skin/Breast: Reports system reviewed and no additional complaints, except as docu <Danny Fabian MD - Last Filed: 02/13/24 06:40> Neurologic: Reports as per HPI, Reports confusion and Reports dizziness <Danny Fabian MD - Last Filed: 02/13/24 06:40> Psychiatric: Psychiatric: Reports as per HPI and Reports homicidal ideation <Danny Fabian MD - Last Filed: 02/13/24 06:40> Endocrine: Endocrine: Reports no additional endocrine complaints <Danny Fabian MD - Last Filed: 02/13/24 06:40> Hematologic/Lymphatic: Hematologic/Lymphatic: Reports no additional hematologic/lymphatic complaints <Danny Fabian MD - Last Filed: 02/13/24 06:40> Allergic/Immunologic: Allergic/Immunologic: Reports no additional allergic/immunologic complaints <Danny Fabian MD - Last Filed: 02/13/24 06:40> PMFSH Past Medical History Medical History: Medical History Abdominal pain Obesity Diabetic peripheral neuropathy Schizophrenia Nicotine dependence Methamphetamine abuse Hypertension associated with diabetes Hyperlipidemia associated with type 2 diabetes mellitus Tobacco dependence ADHD Depression RAJ (generalized anxiety disorder) Vitamin D deficiency Type 2 diabetes mellitus Bipolar disorder <Danny Fabian MD - Last Filed: 02/13/24 06:40> Surgical History Surgical History: Surgical History Status post open reduction with internal fixation of fracture (~2002) Right ankle fracture with subsequent removal hardware 4 years later History of bilateral tubal ligation (~2009) Hx of tonsillectomy (~1994) <aDnny Fabian MD - Last Filed: 02/13/24 06:40> Family History Family History: Family History Mother Ovarian cancer Diabetes mellitus Multiple sclerosis Grandparent Ovarian cancer Father Heart disease Leukemia <Danny Fabian MD - Last Filed: 02/13/24 06:40> Social History Social History: Social History Social History: She has smoked as much as 2 packs of cigarettes per day. She started smoking when she was 18. She is down to 1 pack of cigarettes per day. She does not drink any alcohol. She smokes marijuana daily. She has smoked and snorted methamphetamines for the last 7 years. She denies any other illicit substance use. She lives with her significant other. She has 9 cats and 3 dogs at home. She has a pit bull, husky and hound dog. Smoking packs per day: 1.5 Smoking cigarettes per day: 30.0 Years smoked: 23 Smoking pack-years: 34.50 Smoking status: Current every day smoker Tobacco type: cigarettes Additional smoking assessment comments: Patient stated she use to smoke 2 packs a day Alcohol intake: never Substance use: current Substance use type: marijuana, amphetamines and methamphetamine Last use: 10/06/2021 marijuana, meth 10/10/2022 Lack of Transportation: YES Lack of Food: Sometimes True Current Housing: I Have Housing Concerned About Future Housing: Decline to Answer Difficulty Paying Gas/Electric Bills: YES Difficulty Paying for Meds: No Currently Unemployed: No Education: High School Diploma/GED Difficulty w/ Childcare or Family Care: No Additional living arrangements comments: Lives with her significant other. Additional occupation/education comments: On disability. Spiritual care concerns: No <Danny Fabian MD - Last Filed: 02/13/24 06:40> Exam Const: General: healthy appearing and alert <Danny Fabian MD - Last Filed: 02/13/24 06:40> Nutritional Appearance: well nourished <Danny Fabian MD - Last Filed: 02/13/24 06:40> Limitations: altered mental status and behavioral limitations <Danny Fabian MD - Last Filed: 02/13/24 06:40> HENMT: Head: normal to inspection <Danny Fabian MD - Last Filed: 02/13/24 06:40> Ears: external ears normal <Danny Fabian MD - Last Filed: 02/13/24 06:40> Face/Nose/Sinus: Normal external nose present <Danny Fabian MD - Last Filed: 02/13/24 06:40> Face and sinus: normal facial exam <Danny Fabian MD - Last Filed: 02/13/24 06:40> Mouth: Yes Normal oral and palatal mucosa present <Danny Fabian MD - Last Filed: 02/13/24 06:40> Teeth and gingiva: dentition normal <Danny Fabian MD - Last Filed: 02/13/24 06:40> Throat: posterior oropharynx normal <Danny Fabian MD - Last Filed: 02/13/24 06:40> Eyes: Conjunctivae: conjunctivae normal <Danny Fabian MD - Last Filed: 02/13/24 06:40> Pupils: Equal, round and reactive pupils present <Danny Fabian MD - Last Filed: 02/13/24 06:40> EOM: EOMs intact bilaterally <Danny Fabian MD - Last Filed: 02/13/24 06:40> Direct Ophthalmoscopy: no photophobia <Danny Fabian MD - Last Filed: 02/13/24 06:40> Neck: Neck: normal visual inspection <Danny Fabian MD - Last Filed: 02/13/24 06:40> Chest: Chest palpation & inspection: normal inspection of the chest <Danny Fabian MD - Last Filed: 02/13/24 06:40> Resp: Effort & Inspection: normal respiratory effort <Danny Fabian MD - Last Filed: 02/13/24 06:40> Auscultation: clear to auscultation bilaterally <Danny Fabian MD - Last Filed: 02/13/24 06:40> Cardio: Rate: regular rate <Danny Fabian MD - Last Filed: 02/13/24 06:40> Rhythm: regular rhythm <Danny Fabian MD - Last Filed: 02/13/24 06:40> Heart sounds: Murmur heart sound present <Danny Fabian MD - Last Filed: 02/13/24 06:40> GI: GI Palp: Yes Soft to palpation <Danny Fabian MD - Last Filed: 02/13/24 06:40> : General: Yes bladder normal to palpation <Danny Fabian MD - Last Filed: 02/13/24 06:40> Back/Spine/Pelvis: Back: no CVA tenderness <Danny Fabian MD - Last Filed: 02/13/24 06:40> Skin: General skin exam: normal color <Danny Fabian MD - Last Filed: 02/13/24 06:40> Rashes: no rashes <Danny Fabian MD - Last Filed: 02/13/24 06:40> Wounds: no wounds <Danny Fabian MD - Last Filed: 02/13/24 06:40> Neuro: General: patient oriented x3 <Danny Fabian MD - Last Filed: 02/13/24 06:40> Cranial nerves: Yes Nystagmus not present <Danny Fabian MD - Last Filed: 02/13/24 06:40> Speech: normal speech <Danny Fabian MD - Last Filed: 02/13/24 06:40> Gait exam (Neuro): Normal gait present <Danny Fabian MD - Last Filed: 02/13/24 06:40> Extrem: General: normal to inspection <Danny Fabian MD - Last Filed: 02/13/24 06:40> Psych: Mental Status: mental status grossly normal <Danny Fabian MD - Last Filed: 02/13/24 06:40> Affect: normal affect <Danny Fabian MD - Last Filed: 02/13/24 06:40> Attitude: cooperative <Danny Fabian MD - Last Filed: 02/13/24 06:40> Course Course Emergency Course: Polysubstance abuse homicidal ideation electrolyte imbalance patient is medically cleared for psychiatric evaluation and treatment. patient was evaluated by psychiatric counselor-- patient does not appear to be homicidal. As the patient was due to be discharged in relation to her amphetamine use the patient complained of homicidal ideation. Prior to her time of discharge the patient never complained of any suicidal or homicidal ideation. The patient is set up to is he be seen as an outpatient. <Neymar Nickerson MD - Last Filed: 02/13/24 10:44> Reevaluation(s) Reevaluation #1: Patient stated that she wanted killer old family that if she wants to stay here and she knows that she has been to the psych issue that he has severe stay here so she says she wants to cut her whole family axillae. Consider her and did the workup for medical clearance he still needs to be seen by psych. <Danny Fabian MD - Last Filed: 02/13/24 06:40> Date: 02/13/24 <Danny Fabian MD - Last Filed: 02/13/24 06:40> Time: 06:39 <Danny Fabian MD - Last Filed: 02/13/24 06:40> Vital Signs Vital signs: Vital Signs Temperature 36.8 C 02/12/24 18:36 Pulse Rate 95 02/12/24 18:36 Respiratory Rate 24 H 02/12/24 18:36 Blood Pressure 159/95 H 02/12/24 18:36 Pulse Oximetry 99 02/12/24 18:36 Oxygen Delivery Room Air 02/12/24 18:36 Temperature 37.0 C 02/13/24 09:38 Pulse Rate 85 02/13/24 09:38 Respiratory Rate 20 02/13/24 09:38 Blood Pressure 114/73 02/13/24 09:38 Pulse Oximetry 96 02/13/24 09:38 Oxygen Delivery Room Air 02/13/24 09:38 <Danny Fabian MD - Last Filed: 02/13/24 06:40> Vital Signs Temperature 36.8 C 02/12/24 18:36 Pulse Rate 95 02/12/24 18:36 Respiratory Rate 24 H 02/12/24 18:36 Blood Pressure 159/95 H 02/12/24 18:36 Pulse Oximetry 99 02/12/24 18:36 Oxygen Delivery Room Air 02/12/24 18:36 Temperature 37.0 C 02/13/24 09:38 Pulse Rate 85 02/13/24 09:38 Respiratory Rate 20 02/13/24 09:38 Blood Pressure 114/73 02/13/24 09:38 Pulse Oximetry 96 02/13/24 09:38 Oxygen Delivery Room Air 02/13/24 09:38 <Neymar Nickerson MD - Last Filed: 02/13/24 10:44> MDM - Altered Mental Status MDM Narrative Medical decision making narrative: Patient use meth and took we does well and is set her off into low level and she was active presently on and get talking to herself and dancing and kept trying to fall with med and was acting crazy. Head of giving her Ativan and Haldol, rounding her to go to sleep after we had been set her when she threatened to kill her whole family. <Danny Fabian MD - Last Filed: 02/13/24 06:40> Patient use meth and took we does well and is set her off into low level and she was active presently on and get talking to herself and dancing and kept trying to fall with med and was acting crazy. Head of giving her Ativan and Haldol, rounding her to go to sleep after we had been set her when she threatened to kill her whole family. Polysubstance abuse electrolyte imbalance <Neymar Nickerson MD - Last Filed: 02/13/24 10:44> Differential Diagnosis Differential diagnosis: Likely altered mental status <Danny Fabian MD - Last Filed: 02/13/24 06:40> Likely alcoholic intoxication <Neymar Nickerson MD - Last Filed: 02/13/24 10:44> Medical Records Attestation: I reviewed the patient's medical records. <Danny Fabian MD - Last Filed: 02/13/24 06:40> Lab Data Attestation: I reviewed the patient's lab results. <Danny Fabian MD - Last Filed: 02/13/24 06:40> Result diagrams: 02/12/24 18:51 02/12/24 18:51 <Danny Fabian MD - Last Filed: 02/13/24 06:40> Labs: Lab Results 02/12/24 02/12/24 Range/Units 18:41 18:51 WBC 10.2 (4.8-10.8) K/mm3 RBC 5.15 (4.20-5.40) M/mm3 Hgb 14.8 (12.0-15.0) g/dL Hct 43.2 (35.0-49.0) % MCV 83.9 (78.0-102.0) fL MCH 28.7 (27.0-31.0) pg MCHC 34.3 (32-36) g/dL RDW 12.8 (11.6-14.4) % Plt Count 438 H (150-420) K/mm3 MPV 9.0 L (9.2-11.8) fl Immature Gran % (Auto) 0.4 H (0.0-0.0) % Neut % (Auto) 61.3 (50.0-70.0) % Lymph % (Auto) 28.8 (18.0-42.0) % [place] % (Auto) 6.5 (2.0-11.0) % Eos % (Auto) 2.3 (1.0-6.0) % Baso % (Auto) 0.7 (0.0-1.0) % Lymph # (Auto) 2.93 (1.10-4.50) K/mm3 [place] # (Auto) 0.66 (0.10-0.90) K/mm3 Eos # (Auto) 0.23 (0.02-0.50) K/mm3 Baso # (Auto) 0.07 (0.00-0.10) K/mm3 Abs Immat Gran (auto) 0.04 H (0.00-0.00) K/mm3 Absolute Neuts (auto) 6.24 (1.70-7.20) K/mm3 Absolute Nucleated RBC 0.00 (0.00-0.00) K/mm3 Nucleated RBC % 0.0 (0-0.0) % Sodium 137 (136-145) mmol/L Potassium 3.8 (3.5-5.1) mmol/L Chloride 98 (98-108) mmol/L Carbon Dioxide 29 (21-32) mmol/L Anion Gap 10 (4-12) mmol/L BUN 23 H (7-18) mg/dL Creatinine 0.79 (0.55-1.02) mg/dL Estim Creat Clear Calc 99 ml/min Estimated GFR > 60 (59 - ) Glucose 108 H (70-99) mg/dL Calculated Osmolality 288 (285-295) mOsm/kg Calcium 10.0 (8.5-10.1) mg/dL Phosphorus 5.3 H (2.6-4.7) mg/dL Magnesium 1.4 L (1.8-2.4) mg/dL Total Bilirubin 0.6 (0.00-1.00) mg/dL AST 24 (15-37) U/L ALT 29 (14-59) U/L Alkaline Phosphatase 70 (46-116) U/L Ammonia 19 (11-32) umol/L Total Protein 7.8 (6.4-8.2) g/dL Albumin 4.3 (3.4-5.0) g/dL TSH 1.51 (0.36-3.74) uIU/mL Urine Color Yellow (Yellow) Urine Appearance Clear (Clear) Urine pH 6.0 (5.0-8.0) Ur Specific [place] >= 1.030 H (1.010-1.020) Urine Protein Negative (Negative) Urine Glucose (UA) 3+ H (Negative) Urine Ketones Trace H (Negative) Ur Blood (Man) 2+ H (Negative) Urine Nitrate Negative (Negative) Urine Bilirubin Negative (Negative) Urine Urobilinogen 0.2 (0.2-1.0) mg/dL Leukocyte Esterase Rfl Negative (Negative) RANDOLPH/UL Urine RBC 3-5 H (0-2) /hpf Urine WBC 0-3 (0-3) /hpf Ur Squamous Epith Cells Few (Few) /hpf Urine Bacteria Trace (None) /hpf Salicylates 1.7 L (2.8-20.0) mg/dL Urine Opiates Screen Negative (Negative) Urine Methadone Screen Negative (Negative) Acetaminophen < 2 L (10-30) ug/mL Ur Barbiturates Screen Negative (Negative) Ur Phencyclidine Scrn Negative (Negative) Ur Amphetamine Screen Positive A (Negative) Phenobarbital Pending U Benzodiazepines Scrn Positive A (Negative) Urine Cocaine Screen Negative (Negative) U Cannabinoids Screen Positive A (Negative) Ethyl Alcohol < 3 (0-6) mg/dL <Danny Fabian MD - Last Filed: 02/13/24 06:40> Lab Results 02/12/24 02/12/24 Range/Units 18:41 18:51 WBC 10.2 (4.8-10.8) K/mm3 RBC 5.15 (4.20-5.40) M/mm3 Hgb 14.8 (12.0-15.0) g/dL Hct 43.2 (35.0-49.0) % MCV 83.9 (78.0-102.0) fL MCH 28.7 (27.0-31.0) pg MCHC 34.3 (32-36) g/dL RDW 12.8 (11.6-14.4) % Plt Count 438 H (150-420) K/mm3 MPV 9.0 L (9.2-11.8) fl Immature Gran % (Auto) 0.4 H (0.0-0.0) % Neut % (Auto) 61.3 (50.0-70.0) % Lymph % (Auto) 28.8 (18.0-42.0) % [place] % (Auto) 6.5 (2.0-11.0) % Eos % (Auto) 2.3 (1.0-6.0) % Baso % (Auto) 0.7 (0.0-1.0) % Lymph # (Auto) 2.93 (1.10-4.50) K/mm3 [place] # (Auto) 0.66 (0.10-0.90) K/mm3 Eos # (Auto) 0.23 (0.02-0.50) K/mm3 Baso # (Auto) 0.07 (0.00-0.10) K/mm3 Abs Immat Gran (auto) 0.04 H (0.00-0.00) K/mm3 Absolute Neuts (auto) 6.24 (1.70-7.20) K/mm3 Absolute Nucleated RBC 0.00 (0.00-0.00) K/mm3 Nucleated RBC % 0.0 (0-0.0) % Sodium 137 (136-145) mmol/L Potassium 3.8 (3.5-5.1) mmol/L Chloride 98 (98-108) mmol/L Carbon Dioxide 29 (21-32) mmol/L Anion Gap 10 (4-12) mmol/L BUN 23 H (7-18) mg/dL Creatinine 0.79 (0.55-1.02) mg/dL Estim Creat Clear Calc 99 ml/min Estimated GFR > 60 (59 - ) Glucose 108 H (70-99) mg/dL Calculated Osmolality 288 (285-295) mOsm/kg Calcium 10.0 (8.5-10.1) mg/dL Phosphorus 5.3 H (2.6-4.7) mg/dL Magnesium 1.4 L (1.8-2.4) mg/dL Total Bilirubin 0.6 (0.00-1.00) mg/dL AST 24 (15-37) U/L ALT 29 (14-59) U/L Alkaline Phosphatase 70 (46-116) U/L Ammonia 19 (11-32) umol/L Total Protein 7.8 (6.4-8.2) g/dL Albumin 4.3 (3.4-5.0) g/dL TSH 1.51 (0.36-3.74) uIU/mL Urine Color Yellow (Yellow) Urine Appearance Clear (Clear) Urine pH 6.0 (5.0-8.0) Ur Specific [place] >= 1.030 H (1.010-1.020) Urine Protein Negative (Negative) Urine Glucose (UA) 3+ H (Negative) Urine Ketones Trace H (Negative) Ur Blood (Man) 2+ H (Negative) Urine Nitrate Negative (Negative) Urine Bilirubin Negative (Negative) Urine Urobilinogen 0.2 (0.2-1.0) mg/dL Leukocyte Esterase Rfl Negative (Negative) RANDOLPH/UL Urine RBC 3-5 H (0-2) /hpf Urine WBC 0-3 (0-3) /hpf Ur Squamous Epith Cells Few (Few) /hpf Urine Bacteria Trace (None) /hpf Salicylates 1.7 L (2.8-20.0) mg/dL Urine Opiates Screen Negative (Negative) Urine Methadone Screen Negative (Negative) Acetaminophen < 2 L (10-30) ug/mL Ur Barbiturates Screen Negative (Negative) Ur Phencyclidine Scrn Negative (Negative) Ur Amphetamine Screen Positive A (Negative) Phenobarbital Pending U Benzodiazepines Scrn Positive A (Negative) Urine Cocaine Screen Negative (Negative) U Cannabinoids Screen Positive A (Negative) Ethyl Alcohol < 3 (0-6) mg/dL <Neymar Nickerson MD - Last Filed: 02/13/24 10:44> Discharge Plan Discharge Clinical Impression: Polysubstance abuse, Electrolyte imbalance <Danny Fabian MD - Last Filed: 02/13/24 06:40> Patient Disposition: Home, Self-Care <Danny Fabian MD - Last Filed: 02/13/24 06:40> Condition: Stable <Danny Fabian MD - Last Filed: 02/13/24 06:40> Instructions: Antibiotic Form, Polysubstance Use Disorder (ED) <Danny Fabian MD - Last Filed: 02/13/24 06:40> Patient Language: Russian <Danny Fabian MD - Last Filed: 02/13/24 06:40> Prescriptions: No Action ziprasidone HCl [Geodon] 60 mg capsule 120 mg PO BID Rx Instructions: give with food (meal/snack) (DME) OneTouch Ultra Test Strip See Rx Instructions .ROUTE .COMPLEX Qty: 360 5RF Dose Instruction: TESTING 4 TIMES A DAY Rx Instructions: TESTING 4 TIMES A DAY (DME) lancets [TRUEplus Lancets] 33 gauge misc See Rx Instructions .ROUTE .COMPLEX Qty: 100 5RF Dose Instruction: DIRECTED. TESTING 4 TIMES A DAY DX:E11.9 Rx Instructions: DIRECTED. TESTING 4 TIMES A DAY DX:E11.9 dapagliflozin propanediol [Farxiga] 10 mg tablet See Rx Instructions .ROUTE .COMPLEX Qty: 90 3RF Dose Instruction: TAKE ONE TABLET BY MOUTH DAILY Rx Instructions: TAKE ONE TABLET BY MOUTH DAILY (DME) blood-glucose meter [Blood Glucose Monitoring] Kit See Rx Instructions .Route Qty: 1 0RF Rx Instructions: As directed (DME) pen needle, diabetic [TRUEplus Pen Needle] 29 gauge x 1/2 needle See Rx Instructions .ROUTE .COMPLEX Qty: 100 5RF Dose Instruction: USING 3 TIMES A DAY Rx Instructions: USING 3 TIMES A DAY ziprasidone HCl 60 mg capsule See Rx Instructions .ROUTE .COMPLEX Qty: 180 0RF Dose Instruction: TAKE ONE TABLET BY MOUTH EVERY MORNING AND TWO EVERY EVENING Rx Instructions: TAKE ONE TABLET BY MOUTH EVERY MORNING AND TWO EVERY EVENING miconazole nitrate 200 mg suppository 200 mg vaginal QHS 3 Days Qty: 3 1RF nicotine 21 mg/24 hr patch 24 hour 1 patch transdermal DAILY Qty: 28 0RF Rx Instructions: STEP 1 duloxetine 60 mg capsule,delayed release(DR/EC) See Rx Instructions .ROUTE .COMPLEX Qty: 180 3RF Dose Instruction: TAKE TWO CAPSULES BY MOUTH EVERY MORNING Rx Instructions: TAKE TWO CAPSULES BY MOUTH EVERY MORNING metformin 1,000 mg tablet See Rx Instructions .ROUTE .COMPLEX Qty: 180 3RF Dose Instruction: TAKE ONE TABLET BY MOUTH TWICE A DAY Rx Instructions: TAKE ONE TABLET BY MOUTH TWICE A DAY trazodone 100 mg tablet See Rx Instructions .ROUTE .COMPLEX Qty: 60 0RF Dose Instruction: TAKE TWO TABLETS BY MOUTH BEDTIME Rx Instructions: TAKE TWO TABLETS BY MOUTH BEDTIME gabapentin 100 mg capsule See Rx Instructions .ROUTE .COMPLEX Qty: 180 0RF Dose Instruction: TAKE ONE CAPSULE BY MOUTH EVERY MORNING AND TAKE TWO CAPSULES BY MOUTH EVERY EVENING Rx Instructions: TAKE ONE CAPSULE BY MOUTH EVERY MORNING AND TAKE TWO CAPSULES BY MOUTH EVERY EVENING alprazolam [Xanax] 1 mg tablet 1 mg PO BID PRN (Reason: anxiety) Qty: 20 0RF Mounjaro 5 mg/0.5 mL pen injector 5 mg subcut WEEKLY Qty: 2 0RF atenolol 50 mg tablet See Rx Instructions .ROUTE .COMPLEX Qty: 30 0RF Dose Instruction: TAKE ONE TABLET BY MOUTH DAILY Rx Instructions: TAKE ONE TABLET BY MOUTH DAILY simvastatin 40 mg tablet See Rx Instructions .ROUTE .COMPLEX Qty: 90 0RF Dose Instruction: TAKE ONE TABLET BY MOUTH DAILY Rx Instructions: TAKE ONE TABLET BY MOUTH DAILY <Danny Fabian MD - Last Filed: 02/13/24 06:40> Follow-up/Referrals: Clark Graff, [Primary Care Provider] - <Danny Fabian MD - Last Filed: 02/13/24 06:40> Time of Disposition: 10:43 <Danny Fabian MD - Last Filed: 02/13/24 06:40> 10:43 <Neymar Nickerson MD - Last Filed: 02/13/24 10:44>
--- NOTE | 2024-02-13 06:56 | PC.NURSE ---
PATIENT IS UP AND AMBULATING IN HER ROOM. STEADY GAIT
[2024-02-13] MEDS: ALPRAZolam (*CRX) 0.5 MG TABLET 1 MG PO (07:29)
[2024-02-13 07:42] VITALS: PULSE 85
[2024-02-13] MEDS: atenoloL 50 MG TABLET PO (07:42)
[2024-02-13] MEDS: ZIPRASIDONE HCL 20 MG CAPSULE 40 MG PO (07:42)
[2024-02-13 09:38] VITALS: BP 114/73; PULSE 85; RESP 20; TEMP 37; O2SAT 96
[2024-02-13 10:56] VITALS: BP 119/60; PULSE 81; RESP 18; TEMP 36.9; O2SAT 97
--- OUTSIDE RECORDS SUMMARY | 2024-02-16 11:47 | XMS_ITS | Encounter Summary ---
Author Organization [facility] Address [address] [place] [address]. 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 Gender Identity Not on file Sexual Orientation Not on file documented as of this encounter Plan of Treatment Not on file documented as of this encounter Procedures Procedure Name Priority Date/Time Associated Diagnosis Comments POCT GLUCOSE - CROCKER DOCKED DEVICE Routine 09/26/2016 7:25 PM CDT POCT GLUCOSE - CROCKER DOCKED DEVICE Routine 09/26/2016 6:29 PM CDT documented in this encounter Results * (ABNORMAL) POCT glucose (09/26/2016 7:25 PM CDT) GLUCOSE POC 129(H) 70 - 99 MG/DL 09/27/2016 6:22 AM CDT [facility] LAB ORDERS INTERFACE Comment:Value Noted, No Eugenie tment Given 09/26/2016 7:25 PM CDT 09/27/2016 6:22 AM CDT us Generic Conversion Md MAY POCT ORDERABLES - DEVIC E Final Result [facility] LAB ORDERS INTERFACE US * POCT glucose (09/26/2016 6:29 PM CDT) [facility] GLUCOSE POC 75 70 - 99 MG/DL 09/26/2016 6:30 PM CDT [facility] LAB ORDERS INTERFACE 09/26/2016 6:29 PM CDT 09/26/2016 6:30 PM CDT us Generic Conversion Md MAY POCT ORDERABLES - DEVIC E Final Result Performing Organization Address [facility] Co de Phone Number [facility] LAB ORDERS INTERFACE US documented in this encounter Visit Diagnoses Diagnosis Type 2 diabetes mellitus with hyperglycemia (CMS/HCC HHS/HCC) Type II or unspecified type diabetes mellitus without mention of complication, not stated as uncontrolled documented in this encounter Additional Health Concerns Infection Onset Date Last Indicated Resolved Time MRSA 03/16/2018 03/16/2018 documented as of this encounter
--- OUTSIDE RECORDS SUMMARY | 2024-02-16 11:47 | XMS_ITS ---
Care Plan - [facility] Created on: February 16, 2024 PIEROMARCELLA : 1980 Sex: Female Author Organization [facility] Address [address] [place] [address] Phone Care Team Providers Care Hat Blocking Machine Operator Name Role Phone Unavailable Unavailable Unavailable
--- OUTSIDE RECORDS SUMMARY | 2024-02-16 11:47 | XMS_ITS | Encounter Summary ---
Author Organization [facility] Address [address] [place] [address]. [place] [address] [place] [address] Care Team Providers Care Electrician Underground Name Role Phone Clark Graff DO Primary Care Provider Reason for Visit * Reason Comments Anxiety Encounter Details Date Type Department Care Team ([facility] st Contact Info) Description 11/25/2023 5:55 PM CDT - 11/25/2023 6:45 PM CDT [facility] [address] [place] [address] [place] [address] Milagro Plummer MD [address] [place] [address] Anxiety Discharge Disposition: Home or Self Care (Routine Discharge) Social History Tobacco Use Types Packs/Day Years Used Date Smoking Tobacco: Every Day Cigarettes Smokeless Tobacco: Never Tobacco Cessation:Ready to Q uit: Not Asked; Counseling Given: Not Answered Alcohol Use Standard Drinks/Week Comments Yes 0 (1 standard drink = 0.6 oz pur e alcohol) rarely AUDIT-C Answer Date Recorded Q1: How often do you have a drink containing alc ohol? 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 Gender Identity Not on file Sexual Orientation Not on file documented as of this encounter Last Filed Vital Signs Vital Sign Reading Time Taken Comments Blood Pressure 140/88 11/25/2023 6:45 PM CDT Pulse 99 11/25/2023 6:45 PM CDT Temperature 36.4 ??C (97.5 ??F) 11/25/2023 5:59 PM CD T Respiratory Rate 18 11/25/2023 6:45 PM CDT Oxygen Saturation 99% 11/25/2023 6:45 PM CDT Inhaled Oxygen Concentration - - Weight 93 kg (205 lb) 11/25/2023 5:59 PM CDT Height 180.3 cm (5' 11 ) 11/25/2023 5:59 PM CDT Body Mass Index 28.59 11/25/2023 5:59 PM CDT documented in this encounter Discharge Instructions * Discharge Instructions* Milagro Plummer MD - 11/25/2023 6:40 PM CDT Follow up care is nearly always required after a visit to the Emergency Department. It is your responsibility to call the number(s) provided for a follow up appointment with either your primary care doctor or the [facility]. Please make an appointment for the next 2-3 days. Your diagnosis today asiya provisional one based on information available to the Emergency Physician today. The diagnosis may change as more information becomes available to your personal physician or other healthcare providers. If you develop any new, worsening, or concerning symptoms of illness, and are unable to follow up with a private physician, please return here or to the nearest Emergency Department for further care. * Attachments The following attachments cannot be sent through Care Everywhere. * Anxiety Discharge Instructions, Adult (Ghanaian) documented in this encounter Medications at Time of Discharge ALPRAZolam 1 MG tablet Take 1 tablet (1 mg total) by mouth 2 (two) times daily. atenolol 50 MG tablet Take 1 tablet (50 mg total) by mouth daily. DULoxetine 60 MG capsule Take 2 capsules (120 mg total) by mouth daily. gabapentin 100 MG capsule 1 capsule (100 mg total) 2 (two) times daily. 02/15/2019 metFORMIN 1000 MG tablet Take 1 tablet (1,000 mg total) by mouth 2 (two) times daily with meals. simvastatin 40 MG tablet traZODone 100 MG tablet Take 2 tablets (200 mg total) by mouth nightly at bedtime. vitamin D3, cholecalciferol, 5000 UNITS capsule Take 1 capsule (125 mcg total) by mouth daily. ziprasidone (GEODON) 60 MG capsule Take 2 capsules (120 mg total) by mouth 2 (two) times daily with meals. ALPRAZolam (XANAX) 1 MG tabletIndications :Acute anxiety Take 1 tablet (1 mg total) by mouth 2 (two) times daily as needed for Anxiety. 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 She states she ran out of her benzos that were prescribed. No si/hi. No ah/vh. States she feels nervous. No chest pain /sob. No palpitations. No lh/dizziness. No abd pain/n/vd. No bleeding or bruising. Feels like panic attack she has had in the past. No orthopnea or pnd. No urinary complaints. No fevers. No chills or coughs.eating and drinkingotherwise normally. medical history who presents to ED with chief complaint Anxiety . History: Past Medical History: History reviewed. No pertinent past medical history. Past Surgical History: Past Surgical History: Procedure Laterality Date ??? TONSILLECTOMY Family History: Na No family history on file. Social History: NA Social History Tobacco Use ??? Smoking status: Every Day Current packs/day: 2.00 Types: Cigarettes ??? Smokeless tobacco: Never Substance Use Topics ??? Alcohol use: Yes Comment: rarely ??? Drug use: Not Currently Types: Methamphetamines, Marijuana Review of Systems: Review of Systems ROS negative except as documented elsewhere in note. Physical Exam: Filed Vitals: 11/25/23 1759 BP: (!) 155/98 Pulse: (!) 103 Resp: 18 Temp: 97.5 ??F (36.4 ??C) TempSrc: Temporal SpO2: 100% Weight: 93 kg (205 lb) Height: 1.803 m (5' 11 ) Nursing notes reviewed Physical Exam Constitutional/General: Awake and alert, in no apparent distress. Appears well hydrated and nontoxic. HENT: NC/AT, trachea midline, no oral lesions, mucous membranes moist. No stridor. Eyes: PERRL, EOMFI, clear sclera, subconjunctival sacs are pink Pulmonary: Lungs clear to auscultation bilaterally. Equal symmetric chest rises, unlabored respiratory effort. No crepitus Cardiovascular: Regular rate, no loud murmurs. Cr less than 2 seconds. Abdomen: Soft, non distended, abdomen non-tender Neurologic: GCS 15, gross muscle strength and sensation intact Extremities: No lower extremity edema bilaterally Skin: warm and dry without rash, intact Psych: pt is anxious but not suicidal. Calm and cooperative. No tremors or tongue fasciculations. Results: Pulse Ox: SpO2: 100 % on . No hypoxia, interpreted by me. Interventions: Medications Administered in ED: Medications LORazepam (ATIVAN) tablet 0.5 mg (has no administration in time range) Assessment / Plan / MDM: A/P: pt has no other complaints. She has no tremors or fasciculations last took benzo yesterday. Abd soft nontender no other somatic complaints. Will give ativan but discussed with her to call her doctor's office in the morning to see if she can start a different medication or get refills of her meds. ED Course as of 11/25/231839Nov 25, 2023 183 Pt states she feels resolution of her anxiety, wants to go home. Advised to return to ed if she feels any safety concerns . [PRECISION MACHINE OPERATOR] ED Course User Index [PRECISION MACHINE OPERATOR] Milagro Plummer MD ED Diagnosis: No diagnosis found. Disposition: No follow-up provider specified. Discharge Medications: New Prescriptions No medications on file 11/25/23 Milagro Plummer MD 11/25/231821 * Kelly Butterfield RN - 11/25/2023 5:57 PM CDT Pt is having an anxiety attack. Pt reports a bad dream woke her this morning and she has not been able to calm herself. Pt reports she had been using meth up until 16 days ago and is using an online cinthia for recovery. Pthas alprazolam for anxiety and is out of these. documented in this encounter Plan of Treatment Not on file documented as of this encounter Visit Diagnoses Diagnosis Anxiety- Primary Anxiety state, unspecified documented in this encounter Administered Medications Inactive Administered Medications - up to 3 most recent administrations Medication Order MAR Action Action Date Dose Rate Site LORazepam (ATIVAN) tablet 0.5 mg 0.5 mg, Oral, Once, 1 dose, On Thu11/25/23 at 1830 Given 11/25/2023 6:32 PM CDT 0.5 mg documented in this encounter Active and Recently Administered Medications Times are shown in CDT. Scheduled Medication Order 11/23/2023 11/24/2023 11/25/2023 LORazepam (ATIVAN) tablet 0.5 mg (COMPLETED) 0.5 mg, Oral, Once, 1 dose, On Thu11/25/23 at 1830 1832 (Given - Provid er: Kay Oconnor RN) documented in this encounter Additional Health Concerns Infection Onset Date Last Indicated Resolved Time MRSA 03/16/2018 03/16/2018 documented as of this encounter Care Teams Electrician Underground Relationship Specialty Start Date End Date Clark Graff DO [address] [place] [address] PCP - General FAMILY PRACTICE 01/17/20 documented as of this encounter
--- OUTSIDE RECORDS SUMMARY | 2024-02-16 11:47 | XMS_ITS | Encounter Summary ---
Author Organization [facility] Address [address] [place] [address]. 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
--- OUTSIDE RECORDS SUMMARY | 2024-02-16 11:47 | XMS_ITS | Encounter Summary ---
Author Organization [facility] Address [address] [place] [address]. 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
--- OUTSIDE RECORDS SUMMARY | 2024-02-16 11:47 | XMS_ITS | Encounter Summary ---
Author Organization [facility] Address [address] [place] [address]. 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
--- OUTSIDE RECORDS SUMMARY | 2024-02-16 11:47 | XMS_ITS | Encounter Summary ---
Author Organization [facility] Address [address] [place] [address]. [place], [place] [address] [place] [address] Care Team Providers Care Stain Maker Name Role Phone Clark Graff DO Primary Care Provider [phone] Encounter Details Date Type Department Care Team (Latest Contact Info) Description 03/30/2023 Travel Social History Tobacco Use Types Packs/Day Years Used Date Smoking Tobacco: Every Day Cigarettes Smokeless Tobacco: Never Alcohol Use Standard Drinks/Week Comments Never 0 (1 standard drink = 0.6 oz pur e alcohol) AUDIT-C Answer Date Recorded Q1: How often do you have a drink containing alc ohol? 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
--- OUTSIDE RECORDS SUMMARY | 2024-02-16 11:47 | XMS_ITS | Encounter Summary ---
Author Organization [facility] Address [address] [place] [address]. [place] [address] [place] [address] Care Team Providers Care Silverware Buffing Machine Operator Name Role Phone Dajuan Clark BUTLER Primary Care Provider [phone] Encounter Details Date Type Department Care Team (Late st Contact Info) Description 01/26/2021 12:54 PM METAL SHAPING MACHINE OPERATOR - 01/26/2021 1:51 PM METAL SHAPING MACHINE OPERATOR Emergency [facility] [place] [address] Discharge Disposition: Home or Self Care (Routine [...] on file Legal Sex Female 10:42 PM METAL SHAPING MACHINE OPERATOR Gender Identity Not on file Sexual Orientation Not on file documented as of this encounter Medications at Time of Discharge [...] mouth 2 (two) times daily with meals. insulin aspart protamine-insuli n aspart (70-30) 100 UNIT/ML injection (PEN) Inject 25 Units into the skin 3 (three) times daily before meals. 11/25/2023 Insulin Glargine (BASAGLAR KWIKPEN SC) Inject 80 Units into the skin nightly. 11/25/2023 documented as of this encounter Plan of Treatment Not on file documented as of this encounter Visit Diagnoses Not on filedocumented in this encounter Additional Health Concerns Infection Onset Date Last Indicated Resolved Time MRSA 03/16/2018 03/16/2018 documented as of this encounter Care Teams Silverware Buffing Machine Operator Relationship Specialty Start Date End Date Clark Graff DO [address] [place] [address] PCP - General FAMILY PRACTICE 01/17/20 documented as of this encounter
--- OUTSIDE RECORDS SUMMARY | 2024-02-16 11:47 | XMS_ITS | Encounter Summary ---
Author Organization [facility] Address [address] [place] [address]. 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 No / Unsure 01/17/2020 9:35 AM MEDICAL LOGISTICS SPECIALIST documented as of this encounter Plan of Treatment Not on file documented as of this encounter Visit Diagnoses Not on filedocumented in this encounter Additional Health Concerns Infection Onset Date Last Indicated Resolved Time MRSA 03/16/2018 03/16/2018 documented as of this encounter Care Teams Stretcher And Drier Relationship Specialty Start Date End Date Clark Graff DO [address] [place] [address] PCP - General FAMILY PRACTICE 01/17/20 documented as of this encounter
--- OUTSIDE RECORDS SUMMARY | 2024-02-16 11:47 | XMS_ITS | Encounter Summary ---
Author Organization [facility] Address [address] [place] [address]. [place] [address] [place] [address] Care Team Providers Care Marketing Graphics Specialist Name Role Phone Ana MariaClark manriquez Primary Care Provider Encounter Details Date Type Department Care Team (Latest Contact Info) Description 04/02/2022 2:48 PM EXPLORATION MANAGER - 04/02/2022 11:59 PM [facility] Hospital Encounter [facility] [address] [address] Marcela Lowe, PACKAGER AND STRAPPER [address] [place] [address] Discharge Disposition: Home or Self Care (Routine [...] on file Legal Sex Female 10:42 PM EXPLORATION MANAGER Gender Identity Not on file Sexual Orientation [...] Procedure Name Priority Date/Time Associated Diagnosis Comments HUMAN PAPILLOMAVIRUS, HIGH-RISK TYPES Routine 04/02/2022 8:00 AM EXPLORATION MANAGER documented in this encounter Results * HUMAN PAPILLOMAVIRUS, HIGH-RISK TYPES (04/02/2022 8:00 AM EXPLORATION MANAGER) SPEC DESCRIPTION CERVIX 04/04/19 2:54 PM EXPLORATION MANAGER [facility] HPV DNA HIGH RISK NEGATIVE NEGATIVE 04/04/2022 7:19 PM EXPLORATION MANAGER [facility] Comment:SEE CYTOLOGY REPORT 04/02/2022 8:00 AM EXPLORATION MANAGER Marcela Lowe PACKAGER AND STRAPPER PATHOLOGY/CYTOLOGY ORDERA BLES Final Result [facility] [address] [facility] [place] [address], [place] [phone] documented in this encounter Visit Diagnoses Not on filedocumented in this encounter Additional Health Concerns Infection Onset Date Last Indicated Resolved Time MRSA 03/16/2018 03/16/2018 documented as of this encounter Care Teams Marketing Graphics Specialist Relationship Specialty Start Date End Date Clark Graff DO [address] [place] [address] PCP - General FAMILY PRACTICE 01/17/20 documented as of this encounter
--- OUTSIDE RECORDS SUMMARY | 2024-02-16 11:47 | XMS_ITS | Encounter Summary ---
Author Organization [facility] Address [address] [place] [address]. 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
--- OUTSIDE RECORDS SUMMARY | 2024-02-16 11:47 | XMS_ITS | Encounter Summary ---
Author Organization [facility] Address [address] [place] [address]. [place] [address] [place] [address] Care Team Providers Care Firer Powerhouse Name Role Phone lCark Graff DO Primary Care Provider [phone] Reason for Referral * Medication Prior Authorization - Closed Specialty Diagnoses / Procedures Referred By Contac t Referred To Contact Diagnoses Acute anxiety Issa Austin MD [address] [place] [id number] Phone: tel: fax: Referral ID Status Reason Start Date Expiration Date Visits Re quested Visits Authorized [id number] Closed 1 1 [employer] Reason for Visit * Reason Comments Anxiety Encounter Details Date Type Department Care Team (Late st Contact Info) Description 03/30/2023 4:14 PM [employer]ARD [employer]BER - 03/30/2023 5:17 PM NATIONAL [employer]ARD MEMBER Emergency [facility] [address] [facility] [place] [address] Issa Austin MD [address] [place] [id number] Anxiety Discharge Disposition: Home or Self Care [...] on file Legal Sex Female 10:42 PM [employer]ARD [employer] Gender Identity Not on file Sexual Orientation Not on file documented as of this encounter Last Filed Vital Signs Vital Sign Reading Time Taken Comments Blood Pressure 127/83 03/30/2023 4:20 PM [employer]BER Pulse 90 03/30/2023 4:20 PM [employer]BER Temperature 36.6 ??C (97.8 ??F) 03/30/2023 4:20 PM CS T Respiratory Rate 24 03/30/2023 4:20 PM [employer]BER Oxygen Saturation 100% 03/30/2023 4:20 PM [employer]BER Inhaled Oxygen Concentration - - Weight 105.2 kg (232 lb) 03/30/2023 4:20 PM [employer] Height 177.8 cm (5' 10 ) 03/30/2023 4:20 PM [employer]BER Body Mass Index 33.29 03/30/2023 4:20 PM N[employer]ARD [employer]BER documented in this encounter Discharge Instructions * Attachments The following attachments cannot be sent through Care Everywhere. * Anxiety Discharge Instructions, Adult (Guamanian) documented in this encounter Medications at Time [...] daily with meals. ALPRAZolam (XANAX) 1 MG tabletIndication s:Acute anxiety Take 1 tablet (1 mg total) by mouth 2 (two) times daily as needed for Anxiety. 5 tablet 03/30/2023 insulin aspart protamine-insuli n aspart (70-30) 100 UNIT/ML injection (PEN) Inject 25 Units into the skin 3 (three) times daily before meals. 11/25/2023 Insulin Glargine (BASAGLAR KWIKPEN SC) Inject 80 Units into the skin nightly. 11/25/2023 documented as of this encounter ED Notes * Harpal Hook RN - 03/30/2023 5:16 PM CST Cab voucher given to registration until cab shows up to take P.t back home. P.t. stated they had $22 dollars. Whole trip was $40 dollars so charge nurse wrote a $18 voucher ticket to cover rest of the cost to cab. [employer]ARD MEMBER * Harpal Hook RN - 03/30/2023 5:03 PM CST EMS [facility] P.t. P.t. doesn't have a ride back to [facility]. P.t. states frantically I have no car, no one is able to get me. Isn't there a free shuttle service from here back to my house? When explaining that no shuttle service is available, P.t. became frantically worried and stating I haveno way to get home. Charge nurse was called. 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 Patient c/o anxiety. has hx meth use but hasn't used in [address] if interested in [address] or any help. Patient is with [facility] and hopes to placed by them. is here in ED because of her anxiety. [employer]ARD MEMBER * Issa Austin MD - 03/30/2023 4:14 PM CST eMERGENCY dEPARTMENT eNCOUnter CHIEF COMPLAINT Chief Complaint Patient presents with Anxiety HPI HPI Lizbet Frankel is a 43-year-old female who presents to the ER with a complaint of anxiety. Patientwas brought here by EMS and I discussed the patient with them. She states she has chronic anxiety is on several medications for it including alprazolam 1 mg twice a day as needed and she is out of it. As such he is having anxiety attack now and is requesting a dose of medication to calm her down. Denies any other complaints at this time. ALLERGIES Review of patient's allergies indicates: Allergen Reactions Penicillins Shortness of Breath Latex Rash CURRENT MEDICATIONS Current Outpatient Medications Medication Sig ALPRAZolam (XANAX) 1 MG tablet Take 1 tablet (1 mg total) by mouth 2 (two) times daily as needed for Anxiety. ALPRAZolam 1 MG tablet Take 1 mg by mouth 2 (two) times daily. atenolol 50 MG tablet Take 50 mg by mouth daily. DULoxetine 60 MG capsule Take 120 mg by mouth daily. gabapentin 100 MG capsule 100 mg 2 (two) times daily. insulin aspart protamine-insulin aspart (70-30) 100 UNIT/ML injection (PEN) Inject 25 Units into the skin 3 (three) times daily before meals. Insulin Glargine (BASAGLAR KWIKPEN SC) Inject 80 Units into the skin nightly. metFORMIN 1000 MG tablet Take 1,000 mg by mouth 2 (two) times daily with meals. simvastatin 40 MG tablet traZODone 100 MG tablet Take 200 mg by mouth nightly at bedtime. vitamin D3, cholecalciferol, 5000 UNITS capsule Take 1 capsule by mouth daily. ziprasidone (GEODON) 60 MG capsule Take 120 mg by mouth 2 (two) times daily with meals. PAST MEDICAL HISTORY History reviewed. No pertinent past medical history. SURGICAL HISTORY Past Surgical History: Procedure Laterality Date TONSILLECTOMY SOCIAL HISTORY Social History Socioeconomic History Marital status: Tobacco Use Smoking status: Every Day Packs/day: 2 Types: Cigarettes Smokeless tobacco: Never Substance and Sexual Activity Alcohol use: Never Drug use: Yes Types: Methamphetamines, Marijuana FAMILY HISTORY No family history on file. REVIEW OF SYSTEMS Review of Systems All other ROS negative unless noted above in HPI. PHYSICAL EXAM Physical Exam Filed Vitals: 03/30/23 1620 BP: 127/83 Pulse: 90 Resp: 24 Temp: 97.8 ??F (36.6 ??C) TempSrc: Temporal SpO2: 100% Weight: 105.2 kg (232 lb) Height: 1.778 m (5' 10 ) The patient is a well developed and well nourished adult female in mild distress, alert and oriented but somewhat poor historian. HEENT: PERRL, EOMI Throat without lesions, mucous membranes moist NECK: Supple without adenopathy or rigidity CHEST: Respirations are easy and unlabored NEURO: CN II-XII intact, no focal weakness EKG RADIOLOGY No orders to display LABS No results found for this visit on 03/30/23. ED MEDICATIONS Medications ALPRAZolam (XANAX) tablet 1 mg (has no administration in time range) PROCEDURES Procedures CONSULTS: ED COURSE & MEDICAL DECISION MAKING MDM Patient presents with anxiety on 1 mg alprazolam twice a day as needed. I explained to the patient that we do not typically give refills of controlled substances. Because the patient has never been here for this complaint in the past we will medicate her at this time and I will prescribe 5 tablets but explained that we can never do this again. She will need to get further doses through her primary care providers. Stable for discharge at this time. FINAL IMPRESSION SNOMED CT(R) 1. Acute anxiety ANXIETY Clark Graff, DO [address] [id number] As needed New Prescriptions ALPRAZOLAM (XANAX) 1 MG TABLET Take 1 tablet (1 mg total) by mouth 2 (two) times daily as needed for Anxiety. Issa Austin MD 03/30/23 1635 [employer] MEMBER documented in this encounter Plan of Treatment Not on file documented as of this encounter Visit Diagnoses Diagnosis Acute anxiety- Primary Anxiety state, unspecified documented in this encounter Administered Medications Inactive Administered Medications - up to 3 most recent administrations Medication Order MAR Action Action Date Dose Rate Site ALPRAZolam (XANAX) tablet 1 mg 1 mg, Oral, Once, 1 dose, On 03/30/23 at 1645 Given 03/30/2023 4:44 PM NATIONAL [employer]ARD MEMBER 1 mg documented in this encounter Active and Recently Administered Medications Times are shown in NATIONAL [employer]ARD MEMBER. 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
--- OUTSIDE RECORDS SUMMARY | 2024-02-16 11:47 | XMS_ITS | Encounter Summary ---
Author Organization [facility] Address [address] [place] [address]. 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 Gender Identity Not on file Sexual Orientation Not on file documented as of this encounter Plan of Treatment Not on file documented as of this encounter Procedures Procedure Name Priority Date/Time Associated Diagnosis Comments CULTURE HERPES Routine 12/24/2015 10:35 AM CDT documented in this encounter Results * CULTURE HERPES (12/24/2015 10:35 AM CDT) SPEC DESCRIPTION SITE 12/20/2015 3:49 PM CDT [facility] SPECIAL REQUESTS NO SPECIAL REQUEST 12/20/2015 3:49 PM CDT [facility] CULTURE RESULT NO HERPES SIMPLEX TYPES 1 OR 2 ISOLATED 12/24/2015 10:35 AM CDT [facility] SPECIMEN FROM UNSPECIFIED BODY SITE / Unknown 12/20/2015 4:44 PM CDT Comment:GENITAL us Generic Conversion Md MAY MICROBIOLOGY - GENERAL ORDERABLES Final Result [facility] [address] [place] [address], [id number] documented in this encounter Visit Diagnoses Not on filedocumented in this encounter
--- OUTSIDE RECORDS SUMMARY | 2024-02-16 11:47 | XMS_ITS | Encounter Summary ---
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 enhancement, no calcifications, and no findings for obstruction. ??Tiny pelvic calcifications are unchanged and consistent with phleboliths. ??Urinary bladder is empty and grossly normal. ??Normal uterus. ??Probable dominant follicle in the right ovary measures about 1.2 cm. Moderate stool volume. ??No bowel obstruction. ??Minimal area of increased density in the anterior right upper quadrant subcutaneous fat could be due to an injection site. ??Normal appendix. ??Diffuse degenerative disc disease in the thoracolumbar spine. ??No ascites or inflammatory change. Procedure Note Pedro Lentz MD - 01/17/2020 EXAM: CT ABD+PEL W CON DATE: 01/17/2020 COMPARISON: 07/08/2013 INDICATION: Severe upper abdominal pain. TECHNIQUE: Postcontrast imaging with 95 cc intravenous Isovue-370 leftforearm IV. FINDINGS: The lungs are clear. Small pericardial effusion is unchanged.Vague area of decreased enhancement near the caudate lobe of the liver isunchanged in size. Liver is enlarged with a length of about 25 cm. Thespleen is enlarged measuring about 7 x 12 x 12 cm. Normal enhancement.Small hiatal hernia. Moderate amount of food within an otherwise normalappearing stomach. Small rounded lesion on one of the adrenal gland limbson the right side measures about 1.3 cm. Density measurements wouldsuggest an adenoma. The adrenal gland was not as well seen previously.Normal enhancement of the pancreas. Contracted gallbladder has a normal appearance. No bile duct dilation.Motion artifact through the kidneys. Normal enhancement, nocalcifications, and no findings for obstruction. Tiny pelviccalcifications are unchanged and consistent with phleboliths. Urinarybladder is empty and grossly normal. Normal uterus. Probable dominantfollicle in the right ovary measures about 1.2 cm. Moderate stool volume. No bowel obstruction. Minimal area of increaseddensity in the anterior right upper quadrant subcutaneous fat could be dueto an injection site. Normal appendix. Diffuse degenerative disc diseasein the thoracolumbar spine. No ascites or inflammatory change. IMPRESSION: 1. Unchanged hypodensity in the liver. 2. Enlarged liver and spleen. 3. Possible right adrenal adenoma 4. Small cystic structure in the right ovary. A dose lowering technique was used for this procedure, which may include,but is not limited to, dose reduction technique, automated exposurecontrol, iterative reconstruction, ALARA (As Low As ReasonablyAchievable), or Image Gently techniques. Interpreted By: Pedro Lentz MD, 01/17/2020 6:10 PM us Tee Erwin MD CT Final Result * POCT glucose (01/17/2020 3:40 PM ART APPRAISER) GLUCOSE POC 98 70 - 99 MG/DL 01/17/2020 3:42 PM ART APPRAISER [facility] 01/17/2020 3:40 PM ART APPRAISER us Tee Erwin MD POCT ORDERABLES - DEVICE Final Result Performing Organization Address [facility]/ZIP Co de Phone Number [facility] [address] [place] [address], * LACTIC ACID (01/17/2020 2:04 PM ART APPRAISER) LACTIC ACID VENOUS 1.7 0.4 - 2.0 MMOL/L 01/17/2020 2:36 PM ART APPRAISER [facility] 01/17/2020 2:04 PM ART APPRAISER us Tee Erwin MD LABORATORY Final Result Performing Organization Address [facility] Co de Phone Number [facility] [address] [place] [address], * (ABNORMAL) LACTIC ACID (01/17/2020 12:11 PM ART APPRAISER) LACTIC ACID VENOUS 2.4(H) 0.4 - 2.0 MMOL/L 01/17/2020 12:38 PM ART APPRAISER [facility] Comment: AN ORDER FOR A REPEAT LACTIC ACID TEST IS REQUIRED WITHIN 6 HOURS OF DIAGNOSIS ON A PATIENT WITH SEVERE SEPSIS. 01/17/2020 12:1 1 PM ART APPRAISER us Tee Erwin MD LABORATORY Final Result [facility] [address] [place] [address], * XR ABD KUB (01/17/2020 11:39 AM ART APPRAISER) Anatomical Region Laterality Modality Abdomen Radiographic Erlinda ging 01/17/2020 12:1 0 PM ART APPRAISER Impressions 01/17/2020 12:14 PM ART APPRAISER IMPRESSION: Small calcifications in the pelvis suggesting phleboliths. Normal bowel gas pattern. Interpreted By: Wilmar Salmon MD, 01/17/2020 12:10 PM Narrative 01/17/2020 12:14 PM ART APPRAISER 01/17/2020, 1121 hours. HISTORY: Right upper quadrant pain for 2 months. EXAM: KUB utilizing 4 images for one view. Correlation to study 09/09/2008. FINDINGS: Normal nonspecific bowel gas pattern with no bowel distention and no evidence of bowel obstruction. No definite enlargement of the liver or spleen. Renal outlines are not well seen and cannot be a readily evaluated. Small calcifications in the lateral pelvis suggesting phleboliths. Minimal degenerative or hypertrophic changes lumbar spine. The lung bases appear clear of active infiltrates. Procedure Note Wilmar Salmon MD - 01/17/2020 01/17/2020, 1121 hours. HISTORY: Right upper quadrant pain for 2 months. EXAM: KUB utilizing 4 images for one view. Correlation to study09/09/2008. FINDINGS: Normal nonspecific bowel gas pattern with no bowel distentionand no evidence of bowel obstruction. No definite enlargement of the liveror spleen. Renal outlines are not well seen and cannot be a readilyevaluated. Small calcifications in the lateral pelvis suggesting phleboliths.Minimal degenerative or hypertrophic changes lumbar spine. The lung bases appear clear of active infiltrates. IMPRESSION: Small calcifications in the pelvis suggesting phleboliths. Normal bowelgas pattern. Interpreted By: Wilmar Salmon MD, 01/17/2020 12:10 PM Tee Erwin MD GENERAL IMAGING Final Result * CHLAMYDIA GC RNA (01/17/2020 10:25 AM ART APPRAISER) SPEC DESCRIPTION URINE 01/17/20 10:34 AM ART APPRAISER [facility] CHLAMYDIA RNA TMA NEGATIVE NEGATIVE 020 1:39 PM ART APPRAISER [facility] Comment:PERFORMED BY NUCLEIC ACID AMPLIFICATION N.GONORRHOEAE RNA TMA NEGATIVE NEGATIVE 01/18/2020 1:39 PM ART APPRAISER [facility] Comment:PERFORMED BY NUCLEIC ACID AMPLIFICATION URINE SPECIMEN / Unknown 01/17/2020 10:25 AM ART APPRAISER us Tee Erwin MD MICROBIOLOGY - GENERAL ORDERABL ES Final Result Performing Organization Address City/State/[facility] Co de Phone Number [facility] [address] [place] [address], [facility] [address] [place] [address], [place] [phone] * (ABNORMAL) DRUG SCREEN RAPID (01/17/2020 10:25 AM ART APPRAISER) CANNABINOIDS SCREEN (U) NEGATIVE NEGATIVE 01/17/2020 10:47 AM ART APPRAISER [facility] PHENCYCLIDINE PCP (U) NEGATIVE NEGATIVE 01/17/2020 10:47 AM ART APPRAISER [facility] COCAINE METABOLITES (U) NEGATIVE NEGATIVE 01/17/2020 10:47 AM ART APPRAISER [facility] METHAMPHETAMINE (U) POSITIVE(A) NEGATIVE 01/17/2020 10:47 AM ART APPRAISER [facility] OPIATE SCREEN (U) NEGATIVE NEGATIVE 020 10:47 AM ART APPRAISER [facility] AMPHETAMINE (U) POSITIVE(A) NEGATIVE 01/17/20 10:47 AM ART APPRAISER [facility] BENZODIAZEPINES SCREEN (U) POSITIVE(A) NEGATIVE 01/17/2020 10:47 AM ART APPRAISER [facility] TRICYCLIC ANTIDEPRESSANT SCREEN (U) NEGATIVE NEGATIVE 01/17/2020 10:47 AM ART APPRAISER [facility] METHADONE (U) NEGATIVE NEGATIVE 01/17/2020 10:47 AM ART APPRAISER [facility] BARBITURATES SCREEN (U) NEGATIVE NEGATIVE 01/17/2020 10:47 AM ART APPRAISER [facility] OXYCODONE SCREEN (U) NEGATIVE NEGATIVE 01/17/2020 10:47 AM ART APPRAISER [facility] PROPOXYPHENE SCREEN (U) NEGATIVE NEGATIVE 01/17/2020 10:47 AM ART APPRAISER [facility] URINE TOX COMMENT THIS TEST METHODOLOGY IS DESIGNED AND OFFERED A RAPID TURNAROUND, QUALITATIVE SCREENING PROCEDURE TO AID IN THE IMMEDIATE MEDICAL ASSESSMENT OF PATIENTS SUSPECTED OF SUBSTANCE ABUSE. 01/17/2020 10:32 AM ART APPRAISER [facility] Comment: CLINICAL CONSIDERATION AND PROFESSIONAL JUDGMENT MUST BE APPLIED TO ANY DRUG OF ABUSE TEST RESULT, BOTH POSITIVE AND NEGATIVE. CONFIRMATORY QUANTITATIVE RESULTS ARE AVAILABLE THROUGH OUR REFERENCE LAB[facility]ATORY. Urine specimen (specimen) URINE SPECIMEN / Unknown 01/17/2020 10:25 AM ART APPRAISER us Tee Erwin MD URINE ORDERABLES Final Result Performing Organization Address City/[facility]/ZIP Co de Phone Number [facility] [address] [place] [address], * (ABNORMAL) LIPASE (01/17/2020 10:16 AM ART APPRAISER) LIPASE 599(H) 73 - 393 UNITS/L 01/17/2020 10:56 AM ART APPRAISER [facility] 01/17/2020 10:1 6 AM ART APPRAISER us Tee Erwin MD LABORATORY Final Result Performing Organization Address City/[facility]/ZIP Co de Phone Number [facility] [address] [place] [address], * AMYLASE (01/17/2020 10:16 AM ART APPRAISER) AMYLASE S/P/B 47 25 - 115 UNITS/L 01/17/2020 10:56 AM ART APPRAISER [facility] 01/17/2020 10:1 6 AM ART APPRAISER us Tee Erwin MD LABORATORY Final Result Performing Organization Address City/[facility]/ZIP Co de Phone Number [facility] [address] [place] [address], * (ABNORMAL) LACTIC ACID (01/17/2020 10:16 AM ART APPRAISER) LACTIC ACID VENOUS 2.7(H) 0.4 - 2.0 MMOL/L 01/17/2020 10:54 AM ART APPRAISER [facility] Comment: AN ORDER FOR A REPEAT LACTIC ACID TEST IS REQUIRED WITHIN 6 HOURS OF DIAGNOSIS ON A PATIENT WITH SEVERE SEPSIS. 01/17/2020 10:1 6 AM ART APPRAISER us Tee Erwin MD LABORATORY Final Result Performing Organization Address [facility] Co de Phone Number [facility] [address] [place] [address], * SALICYLATE (01/17/2020 10:16 AM ART APPRAISER) SALICYLATES 3.3 2.8 - 20.0 MG/DL 01/17/2020 11:05 AM ART APPRAISER [facility] 01/17/2020 10:1 6 AM ART APPRAISER us Tee Erwin MD LABORATORY Final Result Performing Organization Address City/[facility] Co de Phone Number [facility] Count includes the [facility] [place] [address], * (ABNORMAL) ACETAMINOPHEN (01/17/2020 10:16 AM ART APPRAISER) ACETAMINOPHEN S/P/B 0.0(L) 10.0 - 30.0 MCG/ML 01/17/2020 11:05 AM ART APPRAISER [facility] 01/17/2020 10:1 6 AM ART APPRAISER us Tee Erwin MD LABORATORY Final Result Performing Organization Address City/[facility]/ZIP Co de Phone Number [facility] [address] [place] [address], * (ABNORMAL) ETHANOL (01/17/2020 10:16 AM ART APPRAISER) ALCOHOL S/P/B <0.003(H) 0 G/DL 01/17/2020 11:05 AM ART APPRAISER [facility] 01/17/2020 10:1 6 AM ART APPRAISER us Tee Erwin MD LABORATORY Final Result Performing Organization Address City/[facility]/ZIP Co de Phone Number [facility] [address] [place] [address], * THYROID STIM HORMONE, TSH (01/17/2020 10:16 AM ART APPRAISER) TSH 2.215 0.358 - 3.740 uIU/ML 01/17/2020 11:05 AM ART APPRAISER [facility] 01/17/2020 10:1 6 AM ART APPRAISER us Tee Erwin MD LABORATORY Final Result Performing Organization Address City/[facility]/ZIP Co de Phone Number [facility] [address] [place] [address], * (ABNORMAL) MAGNESIUM (01/17/2020 10:16 AM ART APPRAISER) MAGNESIUM 1.4(L) 1.8 - 2.4 MG/DL 01/17/2020 10:56 AM ART APPRAISER [facility] 01/17/2020 10:1 6 AM ART APPRAISER us Tee Erwin MD LABORATORY Final Result Performing Organization Address City/[facility]/ZIP Co de Phone Number [facility] [address] [place] [address], * (ABNORMAL) COMPREHENSIVE METABOLIC PANEL (01/17/2020 10:16 AM ART APPRAISER) SODIUM S/P/B 136 136 - 145 MMOL/L 01/17/2020 10:56 AM [facility] POTASSIUM S/P/B 4.5 3.5 - 5.1 MMOL/L 01/17/2020 10:56 AM [facility] CHLORIDE S/P/B 97(L) 98 - 107 MMOL/L 01/17/2020 10:56 AM [facility] CO2 30.5 21.0 - 32.0 MMOL/L 01/17/2020 10:56 AM [facility] GLUCOSE 224(H) 70 - 99 MG/DL 01/17/2020 10:56 AM [facility] Comment: FASTING GLUCOSE 100 TO 125 MG/DL IS CONSISTENT WITH IMPAIRED FASTING GLUCOSE. FASTING GLUCOSE >125 MG/DL IS CONSISTENT WITH DIABETES. RANDOM GLUCOSE >200 MG/DL WITH HYPERGLYCEMIC SYMPTOMS IS CONSISTENT WITH DIABETES. PER ADA GUIDELINES BUN 11 6 - 24 MG/DL 01/17/2020 10:56 AM [facility] CREATININE S/P/B 0.85 0.55 - 1.02 MG/DL 01/17/2020 10:56 AM [facility] CALCIUM S/P/B 9.5 8.4 - 10.5 MG/DL 01/17/2020 10:56 AM [facility] BILIRUBIN TOTAL S/P/B 0.2 0.2 - 1.0 MG/DL 01/17/2020 10:56 AM [facility] Comment: THIS ASSAY IS NOT RECOMMENDED FOR PATIENTS UNDERGOING TREATMENT WITH ELTROMBOPAG DUE TO THE POTENTIAL FOR FALSELY ELEVATED RESULTS. ALKALINE PHOSPHATASE S/P/B 65 37 - 98 U/L 01/17/2020 10:56 AM [facility] AST 14(L) 15 - 37 U/L 01/17/2020 10:56 AM [facility] ALT 25 14 - 59 U/L 01/17/2020 10:56 AM [facility] TOTAL PROTEIN S/P/B 7.5 6.4 - 8.2 G/DL 01/17/2020 10:56 AM [facility] ALBUMIN S/P/B 3.6 3.4 - 5.0 G/DL 01/17/2020 10:56 AM ART APPRAISER [facility] ANION GAP 8.5 5.0 - 15.0 MMOL/L 01/17/2020 10:56 AM [facility] OSMOLALITY (CALC) 288 MOSM/KG 020 10:56 AM [facility] Comment:REFERENCE RANGE NOT ESTABLISHED EGFR NON-AFR. AMER. 88(L) >89 ML/MIN/1. 73 M2 01/17/2020 10:56 AM ART APPRAISER [facility] EGFR AFR. AMER. >90 >89 ML/MIN/1. 73 M2 01/17/2020 10:56 AM [facility] GFR NOTES GFR REFERENCE S: 01/17/2020 10:56 AM [facility] Comment: THE ESTIMATED GFR IS CALCULATED USING THE 2009 CKD-EPI EQUATION. THE FOLLOWING CATEGORIES FOR GRADING RENAL FUNCTION ARE RECOMMENDED BY THE INTERNATIONAL SOCIETY OF NEPHROLOGY (KDIGO 2012 CLINICAL PRACTICE GUIDELINE). G1,NORMAL OR HIGH: >89 ml/min/1.73 m2 G2,MILDLY DECREASED: 60-89 ml/min/1.73 m2 G3A,MILDLY TO MODERATELY DECREASED: 45-59 ml/min/1.73 m2 G3B,MODERATELY TO SEVERELY DECREASED: 30-44 ml/min/1.73 m2 G4,SEVERELY DECREASED: 15-29 ml/min/1.73 m2 G5,KIDNEY FAILURE: <15 ml/min/1.73 m2 01/17/2020 10:1 6 AM ART APPRAISER Tee Erwin MD LABORATORY Final Result [facility] [address] [place] [address], * PARTIAL THROMBOPLASTIN TIME,PTT (01/17/2020 10:16 AM ART APPRAISER) PTT 32.3 25.1 - 36.5 SEC 01/17/2020 10:44 AM ART APPRAISER [facility] Comment:THERAPEUTIC RANGE: 4 6.2-77.0 SEC 01/17/2020 10:1 6 AM ART APPRAISER us Tee Erwin MD LABORATORY Final Result [facility] [address] [place] [address], * PROTIME/INR, VENOUS (01/17/2020 10:16 AM ART APPRAISER) PROTIME 11.5 9.4 - 12.5 SEC 01/17/2020 10:44 AM ART APPRAISER [facility] INR 1.0 0.9 - 1.1 01/17/2020 10:44 AM ART APPRAISER [facility] 01/17/2020 10:1 6 AM ART APPRAISER Tee Erwin MD LABORATORY Final Result Performing Organization Address City/[facility]/ZIP Co de Phone Number [facility] [address] [place] [address], * (ABNORMAL) CBC W/DIFF AUTOMATED (01/17/2020 10:16 AM ART APPRAISER) WBC 10.7 4.5 - 10.8 x10'3/uL 01/17/2020 10:28 AM [facility] RBC 5.09 4.10 - 5.40 x10'6/uL 01/17/2020 10:28 AM [facility] HGB 14.0 12.0 - 16.0 G/DL 01/17/2020 10:28 AM [facility] HCT 43.3 36.0 - 47.0 % 01/17/2020 10:28 AM [facility] MCV 85.1 78.0 - 100.0 FL 01/17/2020 10:28 AM [facility] MCH 27.5 27.0 - 31.0 PG 01/17/2020 10:28 AM [facility] MCHC 32.3(L) 33.0 - 36.0 G/DL 01/17/2020 10:28 AM [facility] RDW 13.5 11.5 - 14.5 % 01/17/2020 10:28 AM [facility] PLT 388(H) 150 - 350 x10'3/uL 01/17/2020 10:28 AM [facility] MPV 9.4 7.4 - 10.4 FL 01/17/2020 10:28 AM [facility] DIFFERENTIAL COMMENT NORMAL REFERENCE RANGE NOT ESTABLISHED FOR THE PROPORTIONAL LEUKOCYTE DIFFERENTIAL. 01/17/2020 10:28 AM [facility] SEG NEUTROPHILS 59.3 % 0 10:28 AM [facility] LYMPHOCYTES 30.1 % 01/17/2020 10:28 AM [facility] MONOCYTES 6.3 % 01/17/2020 10:28 AM [facility] EOSINOPHILS 3.2 % 01/17/2020 10:28 AM [facility] BASOPHILS 0.7 % 01/17/2020 10:28 AM [facility] IMMATURE GRANS % 0.4 % 01/17/20 20 10:28 AM [facility] NRBC 0.0 % 01/17/2020 10:28 AM [facility] ABS. NEUTROPHILS 6.34 1.60 - 8.30 x10'3/uL 01/17/2020 10:28 AM [facility] ABS. LYMPHOCYTES 3.21 0.80 - 4.70 x10'3/uL 01/17/2020 10:28 AM [facility] ABS. MONOCYTES 0.67 0.00 - 1.50 x10'3/uL 01/17/2020 10:28 AM [facility] ABS. EOSINOPHILS 0.34 0.00 - 0.40 x10'3/uL 01/17/2020 10:28 AM [facility] ABS. BASOPHILS 0.08 0.00 - 0.20 x10'3/uL 01/17/2020 10:28 AM [facility] ABS. IMMATURE GRANULOCYTES 0.04(H) 0.00 - 0.03 x10'3/uL 01/17/2020 10:28 AM [facility] ABS. NUCLEATED RBC'S 0.00 0.00 x10'3/uL 01/17/2020 10:28 AM [facility] 01/17/2020 10:1 6 AM ART APPRAISER Tee Erwin MD LABORATORY Final Result [facility] [address] [place] [address], * (ABNORMAL) URINALYSIS (01/17/2020 10:06 AM ART APPRAISER) COLOR (U) YELLOW 01/17/2020 10:38 AM [facility] TRANSPARENCY CLEAR 01/17/2020 10:38 AM [facility] SPECIFIC GRAVITY (U) 1.030(H) 1.000 - 1.025 01/17/2020 10:38 AM [facility] Comment:EQUAL TO OR GREATER THAN U PH 5.0 5.0 - 8.0 01/17/2020 10:38 AM [facility] LEUKOCYTES (U) NEGATIVE NEGATIVE 01/17/2020 10:38 AM [facility] NITRITES NEGATIVE NEGATIVE 01/17/2020 10:38 AM [facility] PROTEIN (U) NEGATIVE NEGATIVE 01/17/2020 10:38 AM [facility] URINE GLUCOSE NEGATIVE NEGATIVE 01/17/2020 10:38 AM [facility] KETONES MG/DL (U) NEGATIVE NEGATIVE 01/17/2020 10:38 AM [facility] UROBILINOGEN 0.2 <1.0 EU/DL 01/17/2020 10:38 AM [facility] BILIRUBIN (U) NEGATIVE NEGATIVE 01/17/2020 10:38 AM [facility] BLOOD (U) NEGATIVE NEGATIVE 01/17/2020 10:38 AM [facility] WBC/HPF 0-5 0 - 5 /HPF 01/17/2020 10:38 AM [facility] EPI/HPF MODERATE /LPF 01/17/2020 10:38 AM ART APPRAISER [facility] URINE SPECIMEN / Unknown 01/17/2020 10:06 AM ART APPRAISER us Tee Erwin MD URINE ORDERABLES Final Result Performing Organization Address [facility] Co de Phone Number [facility] [address] [place] [address], * TEST URINE (01/17/2020 10:06 AM ART APPRAISER) PREG TEST NEGATIVE 01/17/2020 10:35 AM ART APPRAISER [facility] SPECIFIC GRAVITY (U) 1.020 01/17/2020 10:35 AM ART APPRAISER [facility] URINE SPECIMEN / Unknown 01/17/2020 10:06 AM ART APPRAISER us Tee Erwin MD URINE ORDERABLES Final Result Performing Organization Address [facility] Co de Phone Number [facility] [address] [place] [address], * (ABNORMAL) POCT glucose (01/17/2020 9:49 AM ART APPRAISER) GLUCOSE POC 224(H) 70 - 99 MG/DL 01/17/2020 9:51 AM ART APPRAISER [facility] 01/17/2020 9:49 AM ART APPRAISER us Tee Erwin MD POCT ORDERABLES - DEVICE Final Result Performing Organization Address [facility] Co de Phone Number [facility] [address] [place] [address], documented in this encounter Visit Diagnoses Diagnosis Suicidal ideation- Primary documented in this encounter Administered Medications Inactive Administered Medications - up to 3 most recent administrations Medication Order MAR Action Action Date Dose Rate Site ALPRAZolam (XANAX) tablet 1 mg 1 mg, Oral, 2 times daily, First dose on Thu01/18/20 at 0900, Until Discontinued Given 01/18/2020 8:59 AM ART APPRAISER 1 mg DULoxetine (CYMBALTA) capsule 60 mg 60 mg, Oral, 2 times daily, First dose on Thu01/18/20 at 0900, Until Discontinued, Swallow capsule whole or it may be opened and the contents sprinkled on applesauce. Given 01/18/2020 9:02 AM ART APPRAISER 60 mg gabapentin (NEURONTIN) capsule 100 mg 100 mg, Oral, 2 times daily, First dose on Thu01/18/20 at 0900, Until Discontinued Given 01/18/2020 9:00 AM ART APPRAISER 100 mg haloperidol (HALDOL) tablet 5 mg 5 mg, Oral, Once, 1 dose, On Thu01/17/20 at 1845 Given 01/17/2020 6:44 PM ART APPRAISER 5 mg insulin glargine (LANTUS) injection 40 Units 40 Units, Subcutaneous, Nightly at bedtime, First dose on Thu01/17/20 at 2100, Until Discontinued Given 01/17/2020 8:33 PM ART APPRAISER 40 Units Left Arm insulin glargine (LANTUS) injection 80 Units 80 Units, Subcutaneous, Nightly at bedtime, First dose on Thu01/18/20 at 2100, Until Discontinued insulin regular (NOVOLIN R/HUMULIN R) injection 8 Units 8 Units, Subcutaneous, Once, 1 dose, On Thu01/17/20 at 1130, For sliding scale, activate Sliding Scale Insulin order set. Given 01/17/2020 12:43 PM ART APPRAISER 8 Units Right Arm iopamidol (ISOVUE-370) 76 % injection 95 mL 95 mL, Intravenous, IMG once as needed, Contrast, 1 dose, Starting on Thu01/17/20 at 1747, Until Thu01/17/20 at 1747 Given 01/17/2020 5:47 PM ART APPRAISER 95 mLs ketorolac (TORADOL) injection 30 mg 30 mg, Intravenous, Once, 1 dose, On Thu01/17/20 at 1330, For IV administration, give over 15 seconds. Given 01/17/2020 1:42 PM ART APPRAISER 30 mg LORazepam (ATIVAN) tablet 2 mg 2 mg, Oral, Once, 1 dose, On Thu01/17/20 at 1430 Given 01/17/2020 2:33 PM ART APPRAISER 2 mg LORazepam (ATIVAN) tablet 2 mg 2 mg, Oral, Once, 1 dose, On Thu01/17/20 at 1700, MEDICATION FOR TAKE HOME Given 01/17/2020 5:09 PM ART APPRAISER 2 mg metFORMIN (GLUCOPHAGE) tablet 1,000 mg 1,000 mg, Oral, 2 times daily with meals, First dose on Thu01/18/20 at 0815, Until Discontinued Given 01/18/2020 9:00 AM ART APPRAISER 1,000 mg metoprolol tartrate (LOPRESSOR) tablet 25 mg 25 mg, Oral, Once, 1 dose, On Thu01/18/20 at 0830 Given 01/18/2020 8:59 AM ART APPRAISER 25 mg sodium chloride 0.9% bolus infusion SOLN 1,000 mL 1,000 mL, Intravenous, Administer over 15 Minutes, Once, 1 dose, On Thu01/17/20 at 1115 New Bag 01/17/2020 11:55 AM ART AP[facility] 1,000 mLs traZODone (DESYREL) tablet 200 mg 200 mg, Oral, Nightly at bedtime, First dose on Thu01/18/20 at 2100, Until Discontinued vitamin D3 (cholecalciferol) tablet 5,000 Units 5,000 Units, Oral, Daily, First dose on Thu01/18/20 at 0900, Until Discontinued, 1000 units = 25 mcg Given 01/18/2020 9:01 AM ART APPRAISER 5,000 Units ziprasidone (GEODON) capsule 40 mg 40 mg, Oral, 2 times daily with meals, First dose on Thu01/18/20 at 0845, Until Discontinued, May cause prolongation of QT interval. Take with food. HAZARDOUS MEDICATION Given 01/18/2020 9:03 AM ART APPRAISER 40 mg ziprasidone (GEODON) injection 20 mg 20 mg, Intramuscular, Once, 1 dose, On Thu01/17/20 at 2030, Reconstitute with 1.2 mL Sterile Water for Injection to obtain a final concentration of 20 mg/mL. Given 01/17/2020 8:33 PM ART APPRAISER 20 mg Left Deltoid documented in this encounter Active and Recently Administered Medications Times are shown in ART APPRAISER. Scheduled Medication Order 01/16/2020 01/17/2020 01/18/2020 ALPRAZolam (XANAX) tablet 1 mg 1 mg, Oral, 2 times daily, First dose on Thu01/18/20 at 0900, Until Discontinued 0859 (Given - Provid er: Lubna Kumar RN) DULoxetine (CYMBALTA) capsule 60 mg 60 mg, Oral, 2 times daily, First dose on Thu01/18/20 at 0900, Until Discontinued, Swallow capsule whole or it may be opened and the contents sprinkled on applesauce. 09 (Given - Provid er: Lubna Kumar RN) gabapentin (NEURONTIN) capsule 100 mg 100 mg, Oral, 2 times daily, First dose on Thu01/18/20 at 0900, Until Discontinued 0900 (Given - Provid er: Lubna Kumar RN) haloperidol (HALDOL) tablet 5 mg (COMPLETED) 5 mg, Oral, Once, 1 dose, On Thu01/17/20 at 1845 1844 (Given - Provider: Kelly Butterfield RN) insulin glargine (LANTUS) injection 40 Units 40 Units, Subcutaneous, Nightly at bedtime, First dose on Thu01/17/20 at 2100, Until Discontinued 2032 (Given - Provider: Arianna Olguin RN) insulin glargine (LANTUS) injection 80 Units 80 Units, Subcutaneous, Nightly at bedtime, First dose on Thu01/18/20 at 2100, Until Discontinued insulin lispro protamine-insulin lispro (HumaLOG 75-25) (75-25) 100 UNIT/ML injection 20 Units 20 Units, Subcutaneous, Once, 1 dose, On Thu01/18/20 at 0830 0857 (Hold - Provide r: Lubna Kumar RN - Reason: Other - Comment: pt states takes insulin in at lunch) insulin regular (NOVOLIN R/HUMULIN R) injection 8 Units (COMPLETED) 8 Units, Subcutaneous, Once, 1 dose, On Thu01/17/20 at 1130, For sliding scale, activate Sliding Scale Insulin order set. 1243 (Given - Provider: Kelly Butterfield RN) ketorolac (TORADOL) injection 30 mg (COMPLETED) 30 mg, Intravenous, Once, 1 dose, On Thu01/17/20 at 1330, For IV administration, give over 15 seconds. 1342 (Given - Provider: Kelly Butterfield RN) LORazepam (ATIVAN) tablet 2 mg (COMPLETED) 2 mg, Oral, Once, 1 dose, On Thu01/17/20 at 1430 1433 (Given - Provider: Kelly Butterfield RN) LORazepam (ATIVAN) tablet 2 mg (COMPLETED) 2 mg, Oral, Once, 1 dose, On Thu01/17/20 at 1700, MEDICATION FOR TAKE HOME 1709 (Given - Provider: Kelly Butterfield RN) metFORMIN (GLUCOPHAGE) tablet 1,000 mg 1,000 mg, Oral, 2 times daily with meals, First dose on Thu01/18/20 at 0815, Until Discontinued 0900 (Given - Provid er: Lubna Kumar RN) metoprolol tartrate (LOPRESSOR) tablet 25 mg (COMPLETED) 25 mg, Oral, Once, 1 dose, On Thu01/18/20 at 0830 0859 (Given - Provid er: Lubna Kumar RN) sodium chloride 0.9% bolus infusion SOLN 1,000 mL (COMPLETED) 1,000 mL, Intravenous, Administer over 15 Minutes, Once, 1 dose, On Thu01/17/20 at 1115 1155 (New Bag - Provider: Kelly Butterfield RN)1330 (Infusion Stop Time - Provider: Kelly Butterfield RN) traZODone (DESYREL) tablet 200 mg 200 mg, Oral, Nightly at bedtime, First dose on Thu01/18/20 at 2100, Until Discontinued vitamin D3 (cholecalciferol) tablet 5,000 Units 5,000 Units, Oral, Daily, First dose on Thu01/18/20 at 0900, Until Discontinued, 1000 units = 25 mcg 0901 (Given - Provid er: Lubna Kumar RN) ziprasidone (GEODON) capsule 40 mg 40 mg, Oral, 2 times daily with meals, First dose on Thu01/18/20 at 0845, Until Discontinued, May cause prolongation of QT interval. Take with food. HAZARDOUS MEDICATION 902 (Given - Provid er: Lubna Kumar RN) ziprasidone (GEODON) injection 20 mg (COMPLETED) 20 mg, Intramuscular, Once, 1 dose, On Thu01/17/20 at 2030, Reconstitute with 1.2 mL Sterile Water for Injection to obtain a final concentration of 20 mg/mL. 2032 (Given - Provider: Arianna Olguin RN) ziprasidone (GEODON) injection 20 mg 20 mg, Intramuscular, Once, 1 dose, On Thu01/18/20 at 0515, Reconstitute with 1.2 mL Sterile Water for Injection to obtain a final concentration of 20 mg/mL. 0627 (Hold - Provide r: Arianna Olguin RN - Reason: Other - Comment: pt calmed down) PRN Medication Order 01/16/2020 01/17/2020 01/18/2020 iopamidol (ISOVUE-370) 76 % injection 95 mL (COMPLETED) 95 mL, Intravenous, IMG once as needed, Contrast, 1 dose, Starting on Thu01/17/20 at 1747, Until Thu01/17/20 at 1747 1747 (Given - Provider: NIKKO Jaimes) documented in this encounter Additional Health Concerns Infection Onset Date Last Indicated Resolved Time MRSA 03/16/2018 03/16/2018 documented as of this encounter Care Teams Vinyl Hanger Relationship Specialty Start Date End Date Clark Graff DO [facility] [place] [address] PCP - General FAMILY PRACTICE 01/17/20 documented as of this encounter
--- OUTSIDE RECORDS SUMMARY | 2024-02-16 11:47 | XMS_ITS | Encounter Summary ---
Author Organization [facility] Address [address] [place] [address]. 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 Gender Identity Not on file Sexual Orientation Not on file documented as of this encounter Plan of Treatment Not on file documented as of this encounter Procedures Procedure Name Priority Date/Time Associated Diagnosis Comments VAGINITIS SCREEN Routine 12/20/2015 8:32 PM CDT documented in this encounter Results * VAGINITIS SCREEN (12/20/2015 8:32 PM CDT) SPEC DESCRIPTION GENITAL 12/20/2015 3:49 PM CDT [facility] SPECIAL REQUESTS NO SPECIAL REQUEST 12/20/2015 3:49 PM CDT [facility] RESULT TRICHOMONAS VAGINALIS NEGATIVE 12/20/2015 8:32 PM CDT [facility] RESULT GARDNERELLA VAGINALIS POSITIVE 12/20/2015 8:32 PM CDT [facility] RESULT ALEKSANDR SPECIES POSITIVE 12/20/2015 8:32 PM CDT [facility] GENITAL SWAB / Unknown 12/20/2015 6:06 PM CDT Comment:VAGINAL SPECIMEN us Generic Conversion Md MAY MICROBIOLOGY - GENERAL ORDERABLES Final Result Performing Organization Address City/State/[facility] Co de Phone Number [facility] [address] [place] [address], [place] [phone] [id number] documented in this encounter Visit Diagnoses Not on filedocumented in this encounter
--- OUTSIDE RECORDS SUMMARY | 2024-02-16 11:47 | XMS_ITS | Encounter Summary ---
Author Organization [facility] Address [address] [place] [address]. [place] [address] [place] [address] Care Team Providers Care Sales Warehouse Driver Name Role Phone Clark Graff DO Primary Care Provider [phone] Reason for Visit * Reason Comments Finger pain Ring stuck on finger Encounter Details Date Type Department Care Team (Late st Contact Info) Description 09/28/2023 3:06 PM CDT - 09/28/2023 4:53 PM CDT Emergency [facility] [address] [place] [address] Malik Peña MD [address] [place] [id number] Finger pain (Ring stuck on finger) Discharge Disposition: Home or Self Care (Routine [...] on file 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..] as of this encounter ED Notes * Malik Peña MD - 09/28/2023 4:43 PM CDTAssociated Order(s): Foreign Body Emergency Department Note Chief Complaint Chief Complaint Patient presents with Finger pain Ring stuck on finger History of Present Illness Patient presents via EMS for a ring stuck on her right ring finger. She was at another hospital yesterday where they cut through the ring several times but she was unable to tolerate further manipulation and left with the ring still in place. She has a history of methamphetamine abuse and today haspsychomotor agitation and affected speech and behaviors suggesting current intoxication. Medical History ALLERGIES: Review of patient's allergies indicates: Allergen Reactions Penicillins Shortness of Breath Fluconazole Diarrhea Latex Rash MEDICATIONS: Prior to Admission medications Medication Sig Start Date End Date Taking? Authorizing Provider ALPRAZolam (XANAX) 1 MG tablet Take 1 tablet (1 mg total) by mouth 2 (two) times daily as needed for Anxiety. 03/30/23 Issa Austin MD ALPRAZolam 1 MG tablet Take 1 mg by mouth 2 (two) times daily. [facility] atenolol 50 MG tablet Take 50 mg by mouth daily. [facility] DULoxetine 60 MG capsule Take 120 mg by mouth daily. [facility] gabapentin 100 MG capsule 100 mg 2 (two) times daily. 02/15/19 [facility] insulin aspart protamine-insulin aspart (70-30) 100 UNIT/ML injection (PEN) Inject 25 Units into the skin 3 (three) times daily before meals. [facility] Insulin Glargine (BASAGLAR KWIKPEN SC) Inject 80 Units into the skin nightly. [facility] metFORMIN 1000 MG tablet Take 1,000 mg by mouth 2 (two) times daily with meals. [facility] simvastatin 40 MG tablet [facility] traZODone 100 MG tablet Take 200 mg by mouth nightly at bedtime. [facility] vitamin D3, cholecalciferol, 5000 UNITS capsule Take 1 capsule by mouth daily. [facility] ziprasidone (GEODON) 60 MG capsule Take 120 mg by mouth 2 (two) times daily with meals. [facility] PAST MEDICAL HISTORY: History reviewed. No pertinent past medical history. PAST SURGICAL HISTORY: Past Surgical History: Procedure Laterality Date TONSILLECTOMY FAMILY HISTORY: No family history on file. SOCIAL HISTORY: Social History Tobacco Use Smoking status: Every Day Current packs/day: 2.00 Types: Cigarettes Smokeless tobacco: Never Substance Use Topics Alcohol use: Never Drug use: Yes Types: Methamphetamines, Marijuana Review of Systems Review of Systems Musculoskeletal: Ring stuck on right ring finger. Skin: Negative for wound. Physical Exam Filed Vitals: 09/28/23 1435 BP: 113/70 Pulse: 91 Resp: 18 Temp: 97.9 ??F (36.6 ??C) TempSrc: Temporal SpO2: 99% Weight: 105.2 kg (232 lb) Height: 1.778 m (5' 10 ) Physical Exam Vitals and nursing note reviewed. Cardiovascular: Rate and Rhythm: Normal rate and regular rhythm. Skin: Comments: Ring around right ring finger proximal phalanx. It has been cut through but remains intact enough that it is not removable. Attempts to manipulate the ring cause intolerable discomfort to patient. Psychiatric: Comments: Psychomotor agitation, mostly cooperative. Diagnostic Studies / Procedures LABORATORY STUDIES: No results found for this visit on 09/28/23. IMAGING STUDIES No orders to display Foreign Body Date/Time: 09/28/2023 5:58 PM Performed by: Malik Peña MD Authorized by: Malik Peña MD Consent: Consent obtained: Verbal Consent given by: Patient Risks discussed: Pain [place] protocol: Patient identity confirmed: Verbally with patient Location: Location: Finger Finger location: R ring finger Depth: circumferential metal ring. Anesthesia: Anesthesia method: Local infiltration Local anesthetic: Lidocaine 1% w/o epi Procedure type: Procedure complexity: Simple (After local injection of lidocaine I cut part-way through the remaining intact metal portion of the ring and was able to break it with the use of a wound obiee report developer.) Post-procedure details: Neurovascular status: intact Confirmation: No additional foreign bodies on visualization Skin closure: None Procedure completion: Tolerated Comments: No intra-dermal foreign body noted. The ring was removed as above without major difficulty. ED Course / Medical Decision Making History Source: patient External records reviewed: none Discussion with external provider: none Social determinates of health: polysubstance abuse Chronic illnesses impacting care: none MDM Number of Diagnoses or Management Options Ring or other jewelry causing external constriction, initial encounter: minor Diagnosis management comments: Patient with ring around her right ring finger which they attempted to remove at another hospital yesterday but patient apparently wouldn't tolerate continued attempts and she was discharged. Today I was able to remove the ring after local injection of lidocaine. Advised to elevate the hand to allow the ring finger swelling to resolve spontaneously. Risk of Complications, Morbidity, and/or Mortality Presenting problems: low Diagnostic procedures: low Management options: low Patient Progress Patient progress: improved Tests considered and not ordered: none Medications lidocaine (XYLOCAINE) 1 % injection SOLN 5 mL (has no administration in time range) SNOMED CT(R) 1. Ring or other jewelry causing external constriction, initial encounter EFFECT OF EXPOSURE TO EXTERNAL CAUSE Discharge Medication List as of 09/28/2023 4:47 PM Disposition: Discharge Follow-Up: [facility] [address] [place] [address] If symptoms worsen Malik Peña MD 09/28/2023 6:02 PM Malik Peña MD 09/28/23 1802 * Lubna Kumar RN - 09/28/2023 2:33 PM CDT To ED per EMS with ring stuck on right ring finger. Was seen at [facility] yesterday but were unable to remove ring.Patient obviously under the influence of something, can not sit still, many mouth movements. documented in this encounter Plan of Treatment Not on file documented as of this encounter Procedures Procedure Name Priority Date/Time Associated Diagnosis Comments FOREIGN BODY REMOVAL Routine 09/28/2023 5:58 PM CDT documented in this encounter Results * Foreign Body (09/28/2023 5:58 PM CDT) Narrative Malik Peña MD - 09/28/2023 5:58 PM CDT Malik Peña MD ? 09/28/2023 ??6:02 PM Foreign Body Date/Time: 09/28/2023 5:58 PM Performed by: Malik Peña MD Authorized by: Malik Peña MD ?? Consent: ??Consent obtained: ??Verbal ??Consent given by: ??Patient ??Risks discussed: ??Pain [place] protocol: ??Patient identity confirmed: ??Verbally with patient Location: ??Location: ??Finger ??Finger location: ??R ring finger ??Depth: circumferential metal ring. Anesthesia: ??Anesthesia method: ??Local infiltration ??Local anesthetic: ??Lidocaine 1% w/o epi Procedure type: ??Procedure complexity: ??Simple (After local injection of lidocaine I cut part-way through the remaining intact metal portion of the ring and was able to break it with the use of a wound obiee report developer.) Post-procedure details: ??Neurovascular status: intact ?Confirmation: ??No additional foreign bodies on visualization ??Skin closure: ??None ??Procedure completion: ??Tolerated Comments: ?? No intra-dermal foreign body noted. The ring was removed as above without major difficulty. us Malik Peña MD PROCEDURE/MINOR SURGICAL ORDERAB LES Final Result documented in this encounter Visit Diagnoses Diagnosis Ring or other jewelry causing external constriction, initial encounter- Primary documented in this encounter Active and Recently Administered Medications Times are shown in CDT. Scheduled Medication Order 09/26/2023 09/27/2023 09/28/2023 lidocaine (XYLOCAINE) 1 % injection SOLN 5 mL 5 mL, Intradermal, Once, 1 dose, On 09/28/23 at 1645 1645 (Canceled Entry - Provider: Automatic Discharge Provider - Comment: Automatically canceled at discontinue of medication order) documented in this encounter Additional Health Concerns Infection Onset Date Last Indicated Resolved Time MRSA 03/16/2018 03/16/2018 documented as of this encounter Care Teams Sales Warehouse Driver Relationship Specialty Start Date End Date Clark Graff DO [address] [place] [address] PCP - General FAMILY PRACTICE 01/17/20 documented as of this encounter
--- OUTSIDE RECORDS SUMMARY | 2024-02-16 11:47 | XMS_ITS ---
Author Organization [facility] Address [address] [place] [address] Phone Care Team Providers Care Traffic Attendant Name Role Phone Unavailable Unavailable Unavailable Plan of Treatment No Plan of Treatment Recorded Assessments Includes: Assessments for all patient encounters No Assessments Recorded Medical Equipment - Implanted Devices Includes: Current and historical Devices No Medical Equipment Recorded Medications Administered Includes: Administered Medications in patient's chart No Administered Medications Recorded Results Includes: Results from 02/15/2023 through 02/16/2024 No Results Recorded For Specified Dates History of Present Illness History of Present Illness not supported for this document type No History of Present Illness Recorded Social History No Social History Recorded - Smoking Status Unknown Medical History Includes: Medical History in patient's chart No Medical History Recorded Family History Includes: Family History in patient's chart No Family History Recorded Review of Systems Review of Systems not supported for this document type No Review of Systems Recorded Mental Status No Mental Status Recorded Functional Status No Functional Status Recorded Physical Exam Physical Exam not supported for this document type No Physical Exam Recorded Insurance Includes: Active Insurance Policies No Insurance Coverage Recorded Guarantor Relationship Effective Dates Guarantor Ph one MARCELLA HARRY Self [id number] Clinical Notes Includes: Signed Clinical Notes starting from 03/21/2022 No Clinical Notes Recorded
--- OUTSIDE RECORDS SUMMARY | 2024-02-16 11:47 | XMS_ITS | Encounter Summary ---
Author Organization [facility] Address [address] [place] [address]. 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
--- OUTSIDE RECORDS SUMMARY | 2024-02-16 11:47 | XMS_ITS | Encounter Summary ---
Author Organization [facility] Address [address] [place] [address]. 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
--- OUTSIDE RECORDS SUMMARY | 2024-02-16 11:47 | XMS_ITS | Clinical Summary ---
Author Organization [facility] Address [address] [place] [address]. [place] [address] [place] [address] Care Team Providers Care Thermal Engineer Name Role Phone Clark Graff DO Primary Care Provider [phone] Allergies Active Allergy Reactions Criticality Noted Date Comments Fluconazole Diarrhea 09/28/2023 Latex Rash Low 01/17/2020 Penicillins Shortness of Breath High 01/17/2020 Medications traZODone 100 MG tablet Take 2 tablets (200 mg total) by mouth nightly at bedtime. Active ziprasidone (GEODON) 60 MG capsule Take 2 capsules (120 mg total) by mouth 2 (two) times daily with meals. Active gabapentin 100 MG capsule 1 capsule (100 mg total) 2 (two) times daily. 02/15/2019 Active simvastatin 40 MG tablet Active metFORMIN 1000 MG tablet Take 1 tablet (1,000 mg total) by mouth 2 (two) times daily with meals. Active DULoxetine 60 MG capsule Take 2 capsules (120 mg total) by mouth daily. Active atenolol 50 MG tablet Take 1 tablet (50 mg total) by mouth daily. Active vitamin D3, cholecalciferol , 5000 UNITS capsule Take 1 capsule (125 mcg total) by mouth daily. Active ALPRAZolam 1 MG tablet Take 1 tablet (1 mg total) by mouth 2 (two) times daily. Active ALPRAZolam (XANAX) 1 MG tabletIndicatio ns:Acute anxiety Take 1 tablet (1 mg total) by mouth 2 (two) times daily as needed for Anxiety. 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 Gender Identity Not on file Sexual Orientation Not on file Last Filed Vital Signs Vital Sign Reading [...] Mass Index 28.59 11/25/2023 5:59 PM CDT Plan of Treatment Health Maintenance Due Date Last Done Comments Cervical Cancer Screening Pa p Smear (Age 30 to 64) Every 3 Years 1982 Annual Physical 1985 Pneumococcal Vaccine: Pediat rics (0 to 5 Years) and At-Risk Patients (6 to 64 Years) (1 of 2 - PCV) 1988 Hepatitis C 2000 DTaP, Tdap and Td Vaccines ( 1 - Tdap) 2001 Hepatitis B Vaccines (1 of 3 - 19+ 3-dose series) 2001 Mammogram Screening 2022 COVID-19 Vaccine (2023-2 5 season) 2023 Influenza Adult (#1) 2023 Cervical Cancer Screening Marlo p with HPV Testing (Age 30 to 64) Every 5 Years 04/02/2027 04/02/2022 Cervical Cancer Screening with HPV 04/02/2027 HPV Vaccines Aged Out No longer eligi ble based on patient's age to complete this topic Meningococcal Vaccine Aged Out No an fouzia eligible based on patient's age to complete this topic RSV Immunizations Under 20 Months Aged Out No longer eligible based on patient's age to complete this topic Procedures Procedure Name Priority Date/Time Associated Diagnosis Comments HUMAN PAPILLOMAVIRUS, HIGH-RISK TYPES Routine 04/02/2022 8:00 AM PARACHUTE/COMBATANT DIVER OFFICER from Last 3 Months or Most Recently Relevant to Health Maintenance Results * HUMAN PAPILLOMAVIRUS, HIGH-RISK TYPES (04/02/2022 8:00 AM PARACHUTE/COMBATANT DIVER OFFICER) SPEC DESCRIPTION CERVIX 04/04/19 2:54 PM PARACHUTE/COMBATANT DIVER OFFICER [facility] HPV DNA HIGH RISK NEGATIVE NEGATIVE 04/04/2022 7:19 PM PARACHUTE/COMBATANT DIVER OFFICER [facility] Comment:SEE CYTOLOGY REPORT 04/02/2022 8:00 AM PARACHUTE/COMBATANT DIVER OFFICER Marcela Mayo Chrissy SPORTS APPAREL INTERNSHIP PATHOLOGY/CYTOLOGY ORDERA BLES Final Result [facility] [address] [place] [address], from Last 3 Months or Most Recently Relevant to Health Maintenance Additional Health Concerns Infection Onset Date Last Indicated MRSA 03/16/2018 03/16/2018 Insurance IDIAN Care Teams Thermal Engineer Relationship Specialty Start Date End Date Clark Graff DO [address] [place] [address] PCP - General FAMILY PRACTICE 01/17/20
--- OUTSIDE RECORDS SUMMARY | 2024-02-16 11:47 | XMS_ITS | Encounter Summary ---
Author Organization [facility] Address [address] [place] [address]. 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 Gender Identity Not on file Sexual Orientation Not on file documented as of this encounter Plan of Treatment Not on file documented as of this encounter Procedures Procedure Name Priority Date/Time Associated Diagnosis Comments CHLAMYDIA TRACH PCR Routine 12/21/2015 2 :42 PM CDT documented in this encounter Results * CHLAMYDIA TRACH PCR (12/21/2015 2:42 PM CDT) CHLAMYDIA PCR NEGATIVE NEGATIVE 12/21/2015 2:42 PM CDT [facility] SPECIMEN SOURCE GENITAL 12/20/2015 3:49 PM CDT [facility] GENITAL SWAB / Unknown 12/21/2015 8:01 AM CDT us Generic Conversion Md [facility] MICROBIOLOGY - GENERAL ORDERABLES Final Result [facility] [place] [address], [id number] documented in this encounter Visit Diagnoses Not on filedocumented in this encounter
--- OUTSIDE RECORDS SUMMARY | 2024-02-16 11:47 | XMS_ITS | Encounter Summary ---
Author Organization [facility] Address [address] [place] [address]. 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 GONORRHOEAE PCR Routine 12/21/2015 2: 42 PM CDT documented in this encounter Results * N. GONORRHOEAE PCR (12/21/2015 2:42 PM CDT) N.GONORRHOEAE RNA TMA NEGATIVE NEGATIVE 12/21/2015 2:[address] [facility] SPECIMEN GENITAL 12/20/2015 3:[address] [facility] 12/21/2015 8:0 1 AM CDT us Generic Conversion Md [facility] Final R esult [facility] [place] [address], [id number] documented in this encounter Visit Diagnoses Not on filedocumented in this encounter
--- OUTSIDE RECORDS SUMMARY | 2024-02-16 11:48 | XMS_ITS | Encounter Summary ---
Author Organization [facility] Address [address] [place] [address]. [place] [address] [place] [address] Care Team Providers Care Manager Mobile Name Role Phone Unavailable Primary Care Provider Unavailabl e Encounter Details Date Type Department Care Team (Late st Contact Info) Description 01/05/[address] 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
--- OUTSIDE RECORDS SUMMARY | 2024-02-16 11:48 | XMS_ITS | Encounter Summary ---
Author Organization [facility] Address [address] [place] [address]. 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
--- OUTSIDE RECORDS SUMMARY | 2024-02-16 11:48 | XMS_ITS | Encounter Summary ---
Author Organization [facility] Address [address] [place] [address]. 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
--- OUTSIDE RECORDS SUMMARY | 2024-02-16 11:48 | XMS_ITS | Encounter Summary ---
Author Organization [facility] Address [address] [place] [address]. 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
--- OUTSIDE RECORDS SUMMARY | 2024-02-16 11:48 | XMS_ITS | Encounter Summary ---
Author Organization [facility] Address [address] [place] [address]. 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
--- OUTSIDE RECORDS SUMMARY | 2024-02-16 11:48 | XMS_ITS | Encounter Summary ---
Author Organization [facility] Address [address] [place] [address]. 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
--- OUTSIDE RECORDS SUMMARY | 2024-02-16 11:48 | XMS_ITS | Encounter Summary ---
Author Organization [facility] Address [facility]. [place], [place] [address] [place] [address] Care Team Providers Care Parachute Taper Name Role Phone Unavailable Primary Care Provider Unavailabl e Encounter Details Date Type Department Care Team (Late st Contact Info) Description 03/13/2015 Abstract [facility] Medical [facility], [address] [place] [phone] Jose Yañez MD Social History Tobacco Use Types Packs/Day Years Used Date Smoking Tobacco: Never Assessed Comments Unknown Sex and Gender Information Value Date Recorded Sex Assigned at Not on file 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 Name: Reason: anal pain Reason For Visit Patient here to follow-up on anal pain,bleeding, hemorrhoids. Consultation Follow-Up Chief Complaint I have sever anal pain History of Present Illness HPI Free Text: this is 34 years old female patient with a history of hemorrhoids. She was on conservative treatment. She states that over the last week she started to have moderate to severe anal pain. Intermittently small amount of red blood in stool. She is taking fiber supplements. She denies constipation or diarrhea. Review of Systems See HPI for pertinent positives. Active Problems 1. Anal pain (569.42) (K62.89) 2. Internal hemorrhoids (455.0) (K64.8) Past Medical History 1. History of hemorrhoids (V13.89) (Z87.19) 2. History of type 2 diabetes mellitus (V12.29) (Z86.39) Family History Mother 1. Family history of diabetes mellitus (V18.0) (Z83.3) Father 2. Family history of leukemia (V16.6) (Z80.6) Social History ?? Current every day smoker (305.1) (F17.200) Current Meds 1. Cymbalta 60 MG Oral Capsule Delayed Release Particles; Therapy: (Recorded:[id number]) to Recorded Dispense: 0 Days ; #: Sufficient CPEP; Refill: 0; ANDREW = N; Record; Last Updated By: Rodrigo Olguin; 09/04/2014 10:12:22 AM 2. Geodon 60 MG Oral Capsule; Therapy: (Recorded:[id number]) to Recorded Dispense: 0 Days ; #: Sufficient CAPS; Refill: 0; ANDREW = N; Record; Last Updated By: Rodrigo Olguin; 09/04/2014 10:12:22 AM 3. HumaLOG 100 UNIT/ML Subcutaneous Solution; Therapy: (Recorded:[id number]) to Recorded Dispense: 0 Days ; #: Sufficient SOLN; Refill: 0; ANDREW = N; Record; Last Updated By: Rodrigo Olguin; 09/04/2014 10:12:22 AM 4. Lantus SoloStar 100 UNIT/ML SOLN; Therapy: (Recorded:[id number]) to Recorded Dispense: 0 Days ; #: Sufficient SOLN; Refill: 0; ANDREW = N; Record; Last Updated By: Rodrigo Olguin; 09/04/2014 10:12:21 AM 5. Lisinopril 40 MG Oral Tablet; Therapy: (Recorded:[id number]) to Recorded Dispense: 0 Days ; #: Sufficient TABS; Refill: 0; ANDREW = N; Record; Last Updated By: Rodrigo Olguin; 09/04/2014 10:12:22 AM 6. MetFORMIN HCl - 500 MG Oral Tablet; Therapy: (Recorded:[id number]) to Recorded Dispense: 0 Days ; #: Sufficient TABS; Refill: 0; ANDREW = N; Record; Last Updated By: Rodrigo Olguin; 09/04/2014 10:12:22 AM 7. Ritalin 20 MG Oral Tablet; Therapy: (Recorded:[id number]) to Recorded Dispense: 0 Days ; #: Sufficient TABS; Refill: 0; ANDREW = N; Record; Last Updated By: Rodrigo Olguin; 09/04/2014 10:12:22 AM 8. Simvastatin 40 MG Oral Tablet; Therapy: (Recorded:[id number]) to Recorded Dispense: 0 Days ; #: Sufficient TABS; Refill: 0; ANDREW = N; Record; Last Updated By: Rodrigo Olguin; 03/13/2015 2:08:44 PM 9. TraZODone HCl - 100 MG Oral Tablet; Therapy: (Recorded:[id number]) to Recorded Dispense: 0 Days ; #: Sufficient TABS; Refill: 0; ANDREW = N; Record; Last Updated By: Rodrigo Olguin; 09/04/2014 10:12:22 AM 10. Xanax 1 MG Oral Tablet; Therapy: (Recorded:[id number]) to Recorded Dispense: 0 Days ; #: Sufficient TABS; Refill: 0; ANDREW = N; Record; Last Updated By: Rodrigo Olguin; 03/13/2015 2:08:44 PM Allergies 1. Darvocet-N 50 TABS Recorded By: Rodrigo Olguin; 09/04/2014 10:07:48 AM 2. HumuLIN N SUSP Recorded By: Rodrigo Olguin; 09/04/2014 10:07:48 AM 3. Latex Gloves MISC Recorded By: Rodrigo Olguin; 09/04/2014 10:07:48 AM 4. Penicillins Recorded By: Rodrigo Olguin; 09/04/2014 10:07:48 AM Physical Exam Constitutional - General appearance: No acute distress, well appearing and well nourished. Abdomen - Abdomen: Non-tender, no masses. Skin - Skin and subcutaneous tissue: Normal without rashes or lesions. Palpation of skin and subcutaneous tissue: Normal turgor. Psychiatric - Orientation to person, place, and time: Normal. Mood and affect: Normal. Additional Findings - Anal Exam- no thrombosed external hemorrhoids, prominent skin tag on the lefthalf. Superficial posterior midline anal fissure not extending to anal canal. Wound clean. Perianalskin tiny superficial erosions. Assessment 1. Anal pain (569.42) (K62.89) 2. Internal hemorrhoids (455.0) (K64.8) 3. Anal fissure (565.0) (K60.2) posterior midline anal fissure. Perianal skin erosions. Nonthrombosed external hemorrhoids. Plan nifedipine 0.2% ointment to the anus as directed. continue fibers. No wiping after bowel movements.Wash perianal area of his warm water only, no soup. Follow-up in 4 weeks. Discussion/Summary nature of anal fissure, nature of perianal skin erosions, benefit of nifedipine treatment, discussed with patient in deep details. Patient states that pain severe and would like to have [place] for pain control. I agreed to give her prescription for 8 pills. She directed to take them if pain severe. Patient verbalized understanding nature of discussions. She would like to follow plan. Signatures Electronically signed by : Jose Yañez M.D.; Mar 13 2015 5:53PM HEALTH SCIENCE WRITER (Author) documented in this encounter Plan of Treatment Not on file documented as of this encounter Visit Diagnoses Not on filedocumented in this encounter
--- OUTSIDE RECORDS SUMMARY | 2024-02-16 11:48 | XMS_ITS | Encounter Summary ---
Author Organization [facility] Address [address] [place] [address]. 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
--- OUTSIDE RECORDS SUMMARY | 2024-02-16 11:48 | XMS_ITS | Encounter Summary ---
Author Organization [facility] Address [address] [place] [address]. 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 Gender Identity Not on file Sexual Orientation Not on file documented as of this encounter Plan of Treatment Not on file documented as of this encounter Procedures Procedure Name Priority Date/Time Associated Diagnosis Comments THYROID STIM HORMONE TSH Routine 12/20/2015 10:56 AM CDT documented in this encounter Results * THYROID STIM HORMONE, TSH (12/20/2015 10:56 AM CDT) TSH 1.208 0.35 - 4.94 uIU/ML 12/20/2015 5:00 PM CDT [facility] SERUM OR PLASMA SPECIMEN / Unknown 12/20/2015 10:56 AM CDT 12/20/2015 4:09 PM CDT us Generic Conversion Md [facility] Final R esult [facility] [place] [address], [id number] documented in this encounter Visit Diagnoses Not on filedocumented in this encounter
--- OUTSIDE RECORDS SUMMARY | 2024-02-16 11:48 | XMS_ITS | Encounter Summary ---
Author Organization [facility] Address [address] [place] [address]. [place], [place] [address] [place] [address] Care Team Providers Care Linen Room Houseperson Name Role Phone Unavailable Primary Care Provider Unavailabl e Encounter Details Date Type Department Care Team (Late st Contact Info) Description 09/04/2014 Abstract [facility], 2nd [place] [phone] Jose Yañez MD Social History Tobacco Use Types Packs/Day Years Used Date Smoking Tobacco: Never Assessed Comments Unknown Sex and Gender Information Value Date Recorded Sex Assigned at Not on file 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 [employer] Gender Identity Not on file Sexual Orientation Not on file documented as of this encounter Last Filed Vital Signs Vital Sign Reading Time Taken Comments Blood Pressure 121/78 09/04/2014 2:32 PM CDT Pulse - - Temperature - - Respiratory Rate - - Oxygen Saturation - - Inhaled Oxygen Concentration - - Weight 161.9 kg (357 lb) 09/04/2014 2:32 PM CDT Height 177.8 cm (5' 10 ) 09/04/2014 2:32 PM CDT Body Mass Index 51.22 09/04/2014 2:32 PM CDT documented in this encounter Progress Notes * Jose Yañez MD - 09/04/2014 2:45 PM CDT Reason For Visit New Patient Visit Referred By / Reason Patient was referred by Primary Care Physician LDV by PCP: Name: Dr. Baptiste Reason: hemorrhoids. Chief Complaint I have hemorrhoids History of Present Illness HPI Free Text: this is 34 years old female patient is a history of hemorrhoids for 1 year. Patient states that shedo have anal pain intermittently. Periodically red blood during bowel movements and on wiping. She had bowel movements on daily basis. Stool soft. She denies any prior surgery for hemorrhoids. She had colonoscopy done in [address] Baptiste. Adenomatous polyp was removed. Review of Systems See HPI for pertinent positives. Past Medical History 1. History of hemorrhoids (V13.89) (Z87.898) 2. History of type 2 diabetes mellitus (V12.29) (Z86.39) Family History Mother 1. Family history of diabetes mellitus (V18.0) (Z83.3) Father 2. Family history of leukemia (V16.6) (Z80.6) Social History ?? Current every day smoker (305.1) (F17.200) Current Meds 1. Anaprox DS 550 MG Oral Tablet; Therapy: (Recorded:[id number]) to Recorded 2. Cymbalta 60 MG Oral Capsule Delayed Release Particles; Therapy: (Recorded:[id number]) to Recorded 3. Geodon 60 MG Oral Capsule; Therapy: (Recorded:[id number]) to Recorded 4. HumaLOG 100 UNIT/ML Subcutaneous Solution; Therapy: (Recorded:[id number]) to Recorded 5. Lantus SoloStar 100 UNIT/ML SOLN; Therapy: (Recorded:[id number]) to Recorded 6. Lisinopril 40 MG Oral Tablet; Therapy: (Recorded:[id number]) to Recorded 7. MedroxyPROGESTERone Acetate 10 MG Oral Tablet; Therapy: (Recorded:[id number]) to Recorded 8. MetFORMIN HCl - 500 MG Oral Tablet; Therapy: (Recorded:[id number]) to Recorded 9. Ritalin 20 MG Oral Tablet; Therapy: (Recorded:[id number]) to Recorded 10. TraZODone HCl - 100 MG Oral Tablet; Therapy: (Recorded:[id number]) to Recorded Allergies 1. Darvocet-N 50 TABS 2. HumuLIN N SUSP 3. Latex Gloves MISC 4. Penicillins Vitals Recorded: [id number] 02:32PM Systolic 121 Diastolic 78 Height 5 ft 10 in Weight 357 lb BMI Calculated 51.22 BSA Calculated 2.67 Physical Exam Constitutional - General appearance: No acute distress, well appearing and well nourished. Patient was not observed to be morbidly obese. Neck - Exam: Supple, symmetric, trachea midline, no masses. Pulmonary - Respiratory effort: No increased work of breathing or signs of respiratory distress. Auscultation of lungs: Clear to auscultation. Cardiovascular - Auscultation of heart: Normal rate and rhythm, normal S1 and S2, no murmurs. Abdomen - Abdomen: Non-tender, no masses. Liver and spleen: No hepatomegaly or splenomegaly. Psychiatric - Orientation to person, place, and time: Normal. Mood and affect: Normal. Rectal: Digital rectal exam demonstrated normal sphincter tone, no rectal mass and no external hemorrhoids. Additional Findings - Prominent skin tag posterior half, left side. Unable to perform anoscope examsec to pain. No fissure appreciated. Assessment 1. History of type 2 diabetes mellitus (V12.29) (Z86.39) 2. Current every day smoker (305.1) (F17.200) 3. Family history of diabetes mellitus (V18.0) (Z83.3) : Mother 4. Family history of leukemia (V16.6) (Z80.6) : Father 5. Anal pain (569.42) (K62.89) 6. Internal hemorrhoids (455.0) (K64.8) anal pain. Grade 1 internal hemorrhoids. Plan Metamucil fibers 1 teaspoon with 8 ounces of fluids twice daily. Warm water sitz bath this for 15 minutes twice daily. Wash anal area with warm water only after bowel movements. Follow-up in 1 week Discussion/Summary nature of hemorrhoids, natural course, nature of possible hemorrhoid banding, indications, alternative, risks, complications discussed with patient in deep details. I recommend to proceed with conservative treatment. I will do anal examine in one week. I also recommend to redo colonoscopy. Patient have history of adenomatous polypectomy 5 years ago. She need to discuss that issue with Dr. Baptiste. Patient verbalized understanding nature of discussions. She will follow plan. Signatures Electronically signed by : Jose Yañez M.D.; Sep 04 2014 3:57PM [employer]END[employer] (Author) documented in this encounter Plan of Treatment Not on file documented as of this encounter Visit Diagnoses Not on filedocumented in this encounter
--- OUTSIDE RECORDS SUMMARY | 2024-02-16 11:48 | XMS_ITS | Encounter Summary ---
Author Organization [facility] Address [address] [place] [address]. 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 Gender Identity Not on file Sexual Orientation Not on file documented as of this encounter Plan of Treatment Not on file documented as of this encounter Procedures Procedure Name Priority Date/Time Associated Diagnosis Comments CBC W/DIFF AUTOMATED Routine 12/20/2015 10:56 AM CDT documented in this encounter Results * (ABNORMAL) CBC W/DIFF AUTOMATED (12/20/2015 10:56 AM CDT) WBC 17.1(H) 4.0 - 10.8 x10'3/uL 12/20/2015 4:25 PM CDT [facility] RBC 4.95 4.10 - 5.40 x10'6/uL 12/20/2015 4:25 PM CDT [facility] HGB 14.0 12.0 - 16.0 G/DL 12/20/2015 4:25 PM CDT [facility] HCT 43.7 36.0 - 47.0 % 12/20/2015 4:25 PM CDT [facility] MCV 88.3 78.0 - 100.0 FL 12/20/2015 4:25 PM CDT [facility] MCH 28.3 27.0 - 31.0 PG 12/20/2015 4:25 PM CDT [facility] MCHC 32.0(L) 33.0 - 36.0 G/DL 12/20/2015 4:25 PM CDT [facility] RDW 13.5 11.5 - 14.5 % 12/20/2015 4:25 PM CDT [facility] PLT 477(H) 150 - 350 x10'3/uL 12/20/2015 4:25 PM CDT [facility] MPV 9.9 7.4 - 10.4 FL 12/20/2015 4:25 PM CDT [facility] ABS. NEUTROPHILS TOTAL 10.51(H) 1.60 - 8.30 x10'3/uL 12/20/2015 4:25 PM CDT [facility] ABS. LYMPHOCYTES 4.74(H) 0.80 - 4.70 x10'3/uL 12/20/2015 4:25 PM CDT [facility] ABS. MONOCYTES 1.03 0.00 - 1.50 x10'3/uL 12/20/2015 4:25 PM CDT [facility] ABS. EOSINOPHILS 0.59(H) 0.00 - 0.40 x10'3/uL 12/20/2015 4:25 PM CDT [facility] ABS. BASOPHILS 0.09 0.00 - 0.20 x10'3/uL 12/20/2015 4:25 PM CDT [facility] ABS. IMMATURE GRANULOCYTES 0.13(H) 0.00 - 0.03 x10'3/uL 12/20/2015 4:25 PM T [facility] ABS. NUCLEATED RBC'S 0.00 0.0 x10'3/uL 12/20/2015 4:25 PM CDT [facility] PLASMA SPECIMEN / Unknown 12/20/2015 10:56 AM CDT 12/20/2015 4:09 PM CDT us Generic Conversion Md [facility] Final R esult [facility] [address] [place] [address], [id number] documented in this encounter Visit Diagnoses Not on filedocumented in this encounter
--- OUTSIDE RECORDS SUMMARY | 2024-02-16 11:48 | XMS_ITS | Encounter Summary ---
Author Organization [facility] Address [address] [place] [address]. 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
--- OUTSIDE RECORDS SUMMARY | 2024-02-16 11:48 | XMS_ITS | Encounter Summary ---
Author Organization [facility] Address [address] [place] [address]. [place] [address] [place] [address] Care Team Providers Care Director Of Operations Support Name Role Phone Unavailable Primary Care Provider Unavailabl e Encounter Details Date Type Department Care Team (Late st Contact Info) Description 06/26/[address] 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
--- OUTSIDE RECORDS SUMMARY | 2024-02-16 11:48 | XMS_ITS | Encounter Summary ---
Author Organization [facility] Address [address] [place] [address]. [place] [address] [place] [address] Care Team Providers Care Sub Master Name Role Phone Unavailable Primary Care Provider Unavailabl e Encounter Details Date Type Department Care Team (Late st Contact Info) Description 12/20/[address] 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
--- OUTSIDE RECORDS SUMMARY | 2024-02-16 11:48 | XMS_ITS | Encounter Summary ---
Author Organization [facility] Address [address] [place] [address]. [place] [address] [place] [address] Care Team Providers Care Rotary Furnace Tender Name Role Phone Unavailable Primary Care Provider Unavailabl e Encounter Details Date Type Department Care Team (Late st Contact Info) Description 12/07/[address] 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
--- OUTSIDE RECORDS SUMMARY | 2024-02-16 11:48 | XMS_ITS | Encounter Summary ---
Author Organization [facility] Address [address] [place] [address]. 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
--- OUTSIDE RECORDS SUMMARY | 2024-02-16 11:48 | XMS_ITS | Encounter Summary ---
Author Organization [facility] Address [address] [place] [address]. 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
--- OUTSIDE RECORDS SUMMARY | 2024-02-16 11:48 | XMS_ITS | Encounter Summary ---
Author Organization [facility] Address [address] [place] [address]. 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
--- OUTSIDE RECORDS SUMMARY | 2024-02-16 11:48 | XMS_ITS | Encounter Summary ---
Author Organization [facility] Address [address] [place] [address]. [place] [address] [place] [address] Care Team Providers Care Digital Performance Analyst Name Role Phone Unavailable Primary Care Provider Unavailabl e Encounter Details Date Type Department Care Team (Late st Contact Info) Description 01/05/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
--- OUTSIDE RECORDS SUMMARY | 2024-02-16 11:49 | XMS_ITS | Encounter Summary ---
Author Organization [facility] Address [address] [place] [address]. [place] [address] [place] [address] Care Team Providers Care Windows Server Administrator Name Role Phone Unavailable Primary Care Provider Unavailabl e Encounter Details Date Type Department Care Team (Late st Contact Info) Description 07/11/[address] 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
--- OUTSIDE RECORDS SUMMARY | 2024-02-16 11:49 | XMS_ITS | Encounter Summary ---
Author Organization [facility] Address [address] [place] [address]. [place] [address] [place] [address] Care Team Providers Care Egg Caser Name Role Phone Unavailable Primary Care Provider Unavailabl e Encounter Details Date Type Department Care Team (Late st Contact Info) Description 04/08/[address] 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
--- OUTSIDE RECORDS SUMMARY | 2024-02-16 11:49 | XMS_ITS | Encounter Summary ---
Author Organization [facility] Address [address] [place] [address]. 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
--- OUTSIDE RECORDS SUMMARY | 2024-02-16 11:49 | XMS_ITS | Encounter Summary ---
Author Organization [facility] Address [address] [place] [address]. [place] [address] [place] [address] Care Team Providers Care Tack Puller Name Role Phone Unavailable Primary Care Provider Unavailabl e Encounter Details Date Type Department Care Team (Late st Contact Info) Description 04/09/2012 Abstract [facility] [address] [facility] [place] [address] Fredy Paez MD [address] [place], [place] [phone] Social History Tobacco Use Types Packs/Day Years Used Date Smoking Tobacco: Never Assessed Comments Unknown Sex and Gender Information Value Date Recorded Sex Assigned at Not on file Legal Sex Female 10:42 PM FORENSICS TEAM DIRECTOR Gender Identity Not on file Sexual Orientation Not on file documented as of this encounter Plan of Treatment Not on file documented as of this encounter Visit Diagnoses Diagnosis Cellulitis and abscess of neck documented in this encounter Additional Health Concerns Infection Onset Date Last Indicated Resolved Time MRSA 03/16/2018 03/16/2018 documented as of this encounter
--- OUTSIDE RECORDS SUMMARY | 2024-02-16 11:49 | XMS_ITS | Encounter Summary ---
Author Organization [facility] Address [address] [place] [address]. [place] [address] [place] [address] Care Team Providers Care Slab Polisher Name Role Phone Unavailable Primary Care Provider Unavailabl e Encounter Details Date Type Department Care Team (Late st Contact Info) Description 05/12/[address] 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
--- OUTSIDE RECORDS SUMMARY | 2024-02-16 11:49 | XMS_ITS | Encounter Summary ---
Author Organization [facility] Address [address] [place] [address]. [place] [address] [place] [address] Care Team Providers Care 3Rd Mate Name Role Phone Unavailable Primary Care Provider Unavailabl e Encounter Details Date Type Department Care Team (Late st Contact Info) Description 07/08/[address] 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
--- OUTSIDE RECORDS SUMMARY | 2024-02-16 11:49 | XMS_ITS | Encounter Summary ---
Author Organization [facility] Address [address] [place] [address]. [place] [address] [place] [address] Care Team Providers Care Counterintelligence Agent Name Role Phone Unavailable Primary Care Provider Unavailabl e Encounter Details Date Type Department Care Team (Late st Contact Info) Description 07/04/[address] 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
--- OUTSIDE RECORDS SUMMARY | 2024-02-16 11:49 | XMS_ITS | Encounter Summary ---
Author Organization [facility] Address [address] [place] [address]. [place] [address] [place] [address] Care Team Providers Care Winchman/Crane Operator Name Role Phone Unavailable Primary Care Provider Unavailabl e Encounter Details Date Type Department Care Team (Late st Contact Info) Description 03/24/2014 Abstract [facility] [address] [place] [address] Estevan Harrington MD [address] [place] [phone] Social History Tobacco Use Types Packs/Day Years Used Date Smoking Tobacco: Never Assessed Comments Unknown Sex and Gender Information Value Date Recorded Sex Assigned at Not on file Legal Sex Female 10:42 PM ATHLETIC DIRECTOR Gender Identity Not on file Sexual [...]
--- OUTSIDE RECORDS SUMMARY | 2024-02-16 11:49 | XMS_ITS | Encounter Summary ---
Author Organization [facility] Address [address] [place] [address]. [place] [address] [place] [address] Care Team Providers Care Airport Electrician Name Role Phone Unavailable Primary Care Provider Unavailabl e Encounter Details Date Type Department Care Team (Late st Contact Info) Description 08/02/[address] 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
--- OUTSIDE RECORDS SUMMARY | 2024-02-16 11:49 | XMS_ITS | Encounter Summary ---
Author Organization [facility] Address [address] [place] [address]. 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
--- OUTSIDE RECORDS SUMMARY | 2024-02-16 11:49 | XMS_ITS | Encounter Summary ---
Author Organization [facility] Address [address] [place] [address]. [place] [address] [place] [address] Care Team Providers Care Merchant Mill Utility Worker Name Role Phone Unavailable Primary Care Provider Unavailabl e Encounter Details Date Type Department Care Team (Late st Contact Info) Description 07/08/2011 Abstract [place] [facility] [address]15 [facility] [address] Otto Hale MD [address], [place] [phone] Social History Tobacco Use Types Packs/Day Years Used Date Smoking Tobacco: Never Assessed Comments Unknown Sex and Gender Information Value Date Recorded Sex Assigned at Not on file Legal Sex Female 10:42 PM IMPORT/EXPORT AGENT Gender Identity Not on file Sexual Orientation [...]
--- OUTSIDE RECORDS SUMMARY | 2024-02-16 11:49 | XMS_ITS | Encounter Summary ---
Author Organization [facility] Address [address] [place] [address]. 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
--- OUTSIDE RECORDS SUMMARY | 2024-02-16 11:49 | XMS_ITS | Encounter Summary ---
Author Organization [facility] Address [address] [place] [address]. [place] [address] [place] [address] Care Team Providers Care Distribution A Class Lineman Name Role Phone Unavailable Primary Care Provider Unavailabl e Encounter Details Date Type Department Care Team (Late st Contact Info) Description 09/11/2011 Abstract [place] [facility] 1215 [facility] [place], [place] [id number] Aden Avilez MD [address] [place] [address] Social History Tobacco Use Types Packs/Day Years Used Date Smoking Tobacco: Never Assessed Comments Unknown Sex and Gender Information Value Date Recorded Sex Assigned at Not on file Legal Sex Female 10:42 PM BREAKFAST 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
--- OUTSIDE RECORDS SUMMARY | 2024-02-16 11:49 | XMS_ITS | Encounter Summary ---
Author Organization [facility] Address [address] [place] [address]. 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
--- OUTSIDE RECORDS SUMMARY | 2024-02-16 11:49 | XMS_ITS | Encounter Summary ---
Author Organization [facility] Address [address] [place] [address]. [place] [address] [place] [address] Care Team Providers Care Website Optimization Strategist Name Role Phone Unavailable Primary Care Provider Unavailabl e Encounter Details Date Type Department Care Team (Late st Contact Info) Description 12/09/2013 Abstract [facility] [address] [place] [address] Estevan Harrington MD [address] [place] [phone] Social History Tobacco Use Types Packs/Day Years Used Date Smoking Tobacco: Never Assessed Comments Unknown Sex and Gender Information Value Date Recorded Sex Assigned at Not on file Legal Sex Female 10:42 PM PIECER UP Gender Identity Not on file Sexual Orientation Not on file documented as of this encounter Plan of Treatment Not on file documented as of this encounter Visit Diagnoses Diagnosis Abdominal pain of other specified site documented in this encounter Additional Health Concerns Infection Onset Date Last Indicated Resolved Time MRSA 03/16/2018 03/16/2018 documented as of this encounter
--- OUTSIDE RECORDS SUMMARY | 2024-02-16 11:49 | XMS_ITS | Encounter Summary ---
Author Organization [facility] Address [address] [place] [address]. [place] [address] [place] [address] Care Team Providers Care Front Desk Officer Name Role Phone Unavailable Primary Care Provider Unavailabl e Encounter Details Date Type Department Care Team (Late st Contact Info) Description 06/07/2010 Abstract [facility] [address] [place] [address] Estevan Harrington MD [address] [place] [phone] Social History Tobacco Use Types Packs/Day Years Used Date Smoking Tobacco: Never Assessed Comments Unknown Sex and Gender Information Value Date Recorded Sex Assigned at Not on file Legal Sex Female 10:42 PM VOCATIONAL TRAINER Gender Identity Not on file Sexual Orientation Not on file documented as of this encounter Plan of Treatment Not on file documented as of this encounter Visit Diagnoses Diagnosis Examination Unspecified examination documented in this encounter
--- OUTSIDE RECORDS SUMMARY | 2024-02-16 11:49 | XMS_ITS | Encounter Summary ---
Author Organization [facility] Address [address] [place] [address]. 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
--- OUTSIDE RECORDS SUMMARY | 2024-02-16 11:49 | XMS_ITS | Encounter Summary ---
Author Organization [facility] Address [address] [place] [address]. [place] [address] [place] [address] Care Team Providers Care Interactive Digital Media Specialist Name Role Phone Unavailable Primary Care Provider Unavailabl e Encounter Details Date Type Department Care Team (Late st Contact Info) Description 04/12/[address] 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
--- OUTSIDE RECORDS SUMMARY | 2024-02-16 11:49 | XMS_ITS | Encounter Summary ---
Author Organization [facility] Address [address] [place] [address]. [place] [address] [place] [address] Care Team Providers Care It Security Architect Name Role Phone Unavailable Primary Care Provider Unavailabl e Encounter Details Date Type Department Care Team (Late st Contact Info) Description 05/20/2011 Abstract [place] [facility] [address] 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
--- OUTSIDE RECORDS SUMMARY | 2024-02-16 11:49 | XMS_ITS | Encounter Summary ---
Author Organization [facility] Address [address] [place] [address]. [place] [address] [place] [address] Care Team Providers Care Parts Cataloguer Name Role Phone Unavailable Primary Care Provider Unavailabl e Encounter Details Date Type Department Care Team (Late st Contact Info) Description 05/03/[address] 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
--- OUTSIDE RECORDS SUMMARY | 2024-02-16 11:49 | XMS_ITS | Encounter Summary ---
Author Organization [facility] Address [address] [place] [address]. [place] [address] [place] [address] Care Team Providers Care Product Analyst Name Role Phone Unavailable Primary Care Provider Unavailabl e Encounter Details Date Type Department Care Team (Late st Contact Info) Description 09/06/[address] 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
--- OUTSIDE RECORDS SUMMARY | 2024-02-16 11:49 | XMS_ITS | Encounter Summary ---
Author Organization [facility] Address [address] [place] [address]. [place] [address] [place] [address] Care Team Providers Care Law Writer Name Role Phone Unavailable Primary Care Provider Unavailabl e Encounter Details Date Type Department Care Team (Late st Contact Info) Description 04/24/[address] 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
--- OUTSIDE RECORDS SUMMARY | 2024-02-16 11:49 | XMS_ITS | Encounter Summary ---
Author Organization [facility] Address [address] [place] [address]. [place] [address] [place] [address] Care Team Providers Care Consultant Nurse Name Role Phone Unavailable Primary Care Provider Unavailabl e Encounter Details Date Type Department Care Team (Late st Contact Info) Description 06/05/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
--- OUTSIDE RECORDS SUMMARY | 2024-02-16 11:49 | XMS_ITS | Encounter Summary ---
Author Organization [facility] Address [address] [place] [address]. 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
--- OUTSIDE RECORDS SUMMARY | 2024-02-16 11:49 | XMS_ITS | Encounter Summary ---
Author Organization [facility] Address [address] [place] [address]. 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
--- OUTSIDE RECORDS SUMMARY | 2024-02-16 11:49 | XMS_ITS | Encounter Summary ---
Author Organization [facility] Address [address] [place] [address]. 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
--- OUTSIDE RECORDS SUMMARY | 2024-02-16 11:49 | XMS_ITS | Encounter Summary ---
Author Organization [facility] Address [address] [place] [address]. 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
--- OUTSIDE RECORDS SUMMARY | 2024-02-16 11:49 | XMS_ITS | Encounter Summary ---
Author Organization [facility] Address [address] [place] [address]. [place] [address] [place] [address] Care Team Providers Care Service Promoter Salesperson Name Role Phone Unavailable Primary Care Provider Unavailabl e Encounter Details Date Type Department Care Team (Late st Contact Info) Description 06/07/[address] 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
--- OUTSIDE RECORDS SUMMARY | 2024-02-16 11:49 | XMS_ITS | Encounter Summary ---
Author Organization [facility] Address [address] [place] [address]. [place] [address] [place] [address] Care Team Providers Care Noodle Maker Name Role Phone Unavailable Primary Care Provider Unavailabl e Encounter Details Date Type Department Care Team (Late st Contact Info) Description 04/10/[address] 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
--- OUTSIDE RECORDS SUMMARY | 2024-02-16 11:49 | XMS_ITS | Encounter Summary ---
Author Organization [facility] Address [address] [place] [address]. [place] [address] [place] [address] Care Team Providers Care Shoe Fitter Name Role Phone Unavailable Primary Care Provider Unavailabl e Encounter Details Date Type Department Care Team (Late st Contact Info) Description 03/24/[address] 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
--- OUTSIDE RECORDS SUMMARY | 2024-02-16 11:49 | XMS_ITS | Encounter Summary ---
Author Organization [facility] Address [address] [place] [address]. 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
--- OUTSIDE RECORDS SUMMARY | 2024-02-16 11:50 | XMS_ITS | Encounter Summary ---
Author Organization [facility] Address [address] [place] [address]. 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
--- OUTSIDE RECORDS SUMMARY | 2024-02-16 11:50 | XMS_ITS | Encounter Summary ---
Author Organization [facility] Address [address] [place] [address]. [place] [address] [place] [address] Care Team Providers Care Tactical Debriefer Officer Name Role Phone Unavailable Primary Care Provider Unavailabl e Encounter Details Date Type Department Care Team (Late st Contact Info) Description 11/10/[address] 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
--- OUTSIDE RECORDS SUMMARY | 2024-02-16 11:50 | XMS_ITS | Encounter Summary ---
Author Organization [facility] Address [address] [place] [address]. 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
--- OUTSIDE RECORDS SUMMARY | 2024-02-16 11:50 | XMS_ITS | Encounter Summary ---
Author Organization [facility] Address [address] [place] [address]. 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
--- OUTSIDE RECORDS SUMMARY | 2024-02-16 11:50 | XMS_ITS | Encounter Summary ---
Author Organization [facility] Address [address] [place] [address]. 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
--- OUTSIDE RECORDS SUMMARY | 2024-02-16 11:50 | XMS_ITS | Encounter Summary ---
Author Organization [facility] Address [address] [place] [address]. 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
--- OUTSIDE RECORDS SUMMARY | 2024-02-16 11:50 | XMS_ITS | Encounter Summary ---
Author Organization [facility] Address [address] [place] [address]. 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
--- OUTSIDE RECORDS SUMMARY | 2024-02-16 11:50 | XMS_ITS | Encounter Summary ---
Author Organization [facility] Address [address] [place] [address]. [place] [address] [place] [address] Care Team Providers Care Store Clerk Cashier Name Role Phone Unavailable Primary Care Provider Unavailabl e Encounter Details Date Type Department Care Team (Late st Contact Info) Description 03/03/2009 Abstract [facility] [address] [facility] [place] [address] Otto Hale MD [address] [phone] Social History Tobacco Use Types Packs/Day Years Used Date Smoking Tobacco: Never Assessed Comments Unknown Sex and Gender Information Value Date Recorded Sex Assigned at Not on file Legal Sex Female 10:42 PM RN STAFF Gender Identity Not on file Sexual Orientation [...]
--- OUTSIDE RECORDS SUMMARY | 2024-02-16 11:50 | XMS_ITS | Encounter Summary ---
Author Organization [facility] Address [address] [place] [address]. 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
--- OUTSIDE RECORDS SUMMARY | 2024-02-16 11:50 | XMS_ITS | Encounter Summary ---
Author Organization [facility] Address [address] [place] [address]. 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
--- OUTSIDE RECORDS SUMMARY | 2024-02-16 11:50 | XMS_ITS | Encounter Summary ---
Author Organization [facility] Address [address] [place] [address]. 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
--- OUTSIDE RECORDS SUMMARY | 2024-02-16 11:50 | XMS_ITS | Encounter Summary ---
Author Organization [facility] Address [address] [place] [address]. [place] [address] [place] [address] Care Team Providers Care Steel Finisher Name Role Phone Unavailable Primary Care Provider Unavailabl e Encounter Details Date Type Department Care Team (Late st Contact Info) Description 03/28/[address] 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
--- OUTSIDE RECORDS SUMMARY | 2024-02-16 11:50 | XMS_ITS | Encounter Summary ---
Author Organization [facility] Address [address] [place] [address]. [place] [address] [place] [address] Care Team Providers Care Digital Controls Technical Officer Name Role Phone Unavailable Primary Care Provider Unavailabl e Encounter Details Date Type Department Care Team (Late st Contact Info) Description 02/09/2001 Abstract [facility] [address] [place] [address] , Generic Conversion, Social History Tobacco Use Types Packs/Day Years Used Date Smoking Tobacco: Never Assessed Comments Unknown Sex and Gender Information Value Date Recorded Sex Assigned at Not on file Legal Sex Female 10:42 PM NURSERY HAND Gender Identity Not on file Sexual Orientation Not on file documented as of this encounter Plan of Treatment Not on file documented as of this encounter Visit Diagnoses Not on filedocumented in this encounter Additional Health Concerns Infection Onset Date Last Indicated Resolved Time MRSA 03/16/2018 03/16/2018 documented as of this encounter
--- OUTSIDE RECORDS SUMMARY | 2024-02-16 11:50 | XMS_ITS | Encounter Summary ---
Author Organization [facility] Address [address] [place] [address]. 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
--- OUTSIDE RECORDS SUMMARY | 2024-02-16 11:50 | XMS_ITS | Encounter Summary ---
Author Organization [facility] Address [address] [place] [address]. [place] [address] [place] [address] Care Team Providers Care Surgical Dental Assistant Name Role Phone Unavailable Primary Care Provider Unavailabl e Encounter Details Date Type Department Care Team (Late st Contact Info) Description 01/04/2009 Abstract [facility] [address] [facility] [place] [address] Otto Hale MD [address], [place] [phone] Social History Tobacco Use Types Packs/Day Years Used Date Smoking Tobacco: Never Assessed Comments Unknown Sex and Gender Information Value Date Recorded Sex Assigned at Not on file Legal Sex Female 10:42 PM CEMENT CUTTER Gender Identity Not on file Sexual Orientation Not on file documented as of this encounter Plan of Treatment Not on file documented as of this encounter Visit Diagnoses Diagnosis Anxiety state Anxiety state, unspecified documented in this encounter Additional Health Concerns Infection Onset Date Last Indicated Resolved Time MRSA 03/16/2018 03/16/2018 documented as of this encounter
--- OUTSIDE RECORDS SUMMARY | 2024-02-16 11:50 | XMS_ITS | Encounter Summary ---
Author Organization [facility] Address [address] [place] [address]. 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
--- OUTSIDE RECORDS SUMMARY | 2024-02-16 11:50 | XMS_ITS | Encounter Summary ---
Author Organization [facility] Address [address] [place] [address]. 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
--- OUTSIDE RECORDS SUMMARY | 2024-02-16 11:50 | XMS_ITS | Encounter Summary ---
Author Organization [facility] Address [address] [place] [address]. 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
--- OUTSIDE RECORDS SUMMARY | 2024-02-16 11:50 | XMS_ITS | Encounter Summary ---
Author Organization [facility] Address [address] [place] [address]. [place] [address] [place] [address] Care Team Providers Care Cage Tender Name Role Phone Unavailable Primary Care Provider Unavailabl e Encounter Details Date Type Department Care Team (Late st Contact Info) Description 11/05/1997 Abstract [facility] [address] [place] [address] , Generic Conversion, Social History Tobacco Use Types Packs/Day Years Used Date Smoking Tobacco: Never Assessed Comments Unknown Sex and Gender Information Value Date Recorded Sex Assigned at Not on file Legal Sex Female 10:42 PM ASPHALT HEATER TENDER Gender Identity Not on file Sexual Orientation Not on file documented as of this encounter Plan of Treatment Not on file documented as of this encounter Visit Diagnoses Not on filedocumented in this encounter Additional Health Concerns Infection Onset Date Last Indicated Resolved Time MRSA 03/16/2018 03/16/2018 documented as of this encounter
--- OUTSIDE RECORDS SUMMARY | 2024-02-16 11:50 | XMS_ITS | Encounter Summary ---
Author Organization [facility] Address [address] [place] [address]. [place] [address] [place] [address] Care Team Providers Care Gambling Counsellor Name Role Phone Unavailable Primary Care Provider Unavailabl e Encounter Details Date Type Department Care Team (Late st Contact Info) Description 11/08/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
--- OUTSIDE RECORDS SUMMARY | 2024-02-16 11:50 | XMS_ITS | Encounter Summary ---
Author Organization [facility] Address [address] [place] [address]. 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
--- OUTSIDE RECORDS SUMMARY | 2024-02-16 11:50 | XMS_ITS | Encounter Summary ---
Author Organization [facility] Address [address] [place] [address]. 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
--- OUTSIDE RECORDS SUMMARY | 2024-02-16 11:50 | XMS_ITS | Encounter Summary ---
Author Organization [facility] Address [address] [place] [address]. [place] [address] [place] [address] Care Team Providers Care Peoplesoft Administrator Name Role Phone Unavailable Primary Care Provider Unavailabl e Encounter Details Date Type Department Care Team (Late st Contact Info) Description 11/19/2006 Abstract [place] [facility] [address] [facility] [place] [address] Brandon Cardenas MD [address] [address] Social History Tobacco Use Types Packs/Day Years Used Date Smoking Tobacco: Never Assessed Comments Unknown Sex and Gender Information Value Date Recorded Sex Assigned at Not on file Legal Sex Female 10:42 PM FREIGHT DISPATCHER Gender Identity Not on file Sexual Orientation Not on file documented as of this encounter Plan of Treatment Not on file documented as of this encounter Visit Diagnoses Not on filedocumented in this encounter Additional Health Concerns Infection Onset Date Last Indicated Resolved Time MRSA 03/16/2018 03/16/2018 documented as of this encounter
--- OUTSIDE RECORDS SUMMARY | 2024-02-16 11:50 | XMS_ITS | Encounter Summary ---
Author Organization [facility] Address [address] [place] [address]. [place] [address] [place] [address] Care Team Providers Care General Internal Medicine Doctor Name Role Phone Unavailable Primary Care Provider Unavailabl e Encounter Details Date Type Department Care Team (Late st Contact Info) Description 05/18/[address] [facility] [address] [place] [address] Aden Baptiste MD [address] [place] [phone] Social History Tobacco Use Types Packs/Day Years Used Date Smoking Tobacco: Never Assessed Comments Unknown Sex and Gender Information Value Date Recorded Sex Assigned at Not on file Legal Sex Female 10:42 PM REAL ESTATE PARALEGAL Gender Identity Not on file Sexual Orientation [...]
--- OUTSIDE RECORDS SUMMARY | 2024-02-16 11:50 | XMS_ITS | Encounter Summary ---
Author Organization [facility] Address [address] [place] [address]. [place] [address] [place] [address] Care Team Providers Care Desktop Operator Name Role Phone Unavailable Primary Care Provider Unavailabl e Encounter Details Date Type Department Care Team (Late st Contact Info) Description 10/21/2006 Abstract [place] [facility] [address] [facility] [place] [address] Social History Tobacco Use Types Packs/Day Years Used Date Smoking Tobacco: Never Assessed Comments Unknown Sex and Gender Information Value Date Recorded Sex Assigned at Not on file Legal Sex Female 10:42 PM PLANNING ANALYST Gender Identity Not on file Sexual Orientation Not on file documented as of this encounter Plan of Treatment Not on file documented as of this encounter Visit Diagnoses Not on filedocumented in this encounter Additional Health Concerns Infection Onset Date Last Indicated Resolved Time MRSA 03/16/2018 03/16/2018 documented as of this encounter
--- OUTSIDE RECORDS SUMMARY | 2024-02-16 11:50 | XMS_ITS | Encounter Summary ---
Author Organization [facility] Address [address] [place] [address]. 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
--- OUTSIDE RECORDS SUMMARY | 2024-02-16 11:50 | XMS_ITS | Encounter Summary ---
Author Organization [facility] Address [address] [place] [address]. [place], [place] [address] [place] [address] Care Team Providers Care Flavorer Name Role Phone Unavailable Primary Care Provider Unavailabl e Encounter Details Date Type Department Care Team (Latest Contact Info) Description 08/02/[address] [facility] Social History Tobacco Use Types Packs/Day Years Used Date Smoking Tobacco: Never Assessed Comments Unknown Sex and Gender Information Value Date Recorded Sex Assigned at Not on file Legal Sex Female 10:42 PM AMMONIA DISTILLER Gender Identity Not on file Sexual Orientation Not on file documented as of this encounter Plan of Treatment Not on file documented as of this encounter Visit Diagnoses Not on filedocumented in this encounter
--- OUTSIDE RECORDS SUMMARY | 2024-02-16 11:50 | XMS_ITS | Encounter Summary ---
Author Organization [facility] Address [address] [place] [address]. [place] [address] [place] [address] Care Team Providers Care Scale Adjuster Name Role Phone Unavailable Primary Care Provider Unavailabl e Encounter Details Date Type Department Care Team (Late st Contact Info) Description 09/12/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
--- OUTSIDE RECORDS SUMMARY | 2024-02-16 11:50 | XMS_ITS | Encounter Summary ---
Author Organization [facility] Address [address] [place] [address]. 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
--- OUTSIDE RECORDS SUMMARY | 2024-02-16 11:50 | XMS_ITS | Encounter Summary ---
Author Organization [facility] Address [address] [place] [address]. 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
--- OUTSIDE RECORDS SUMMARY | 2024-02-16 11:50 | XMS_ITS | Encounter Summary ---
Author Organization [facility] Address [address] [place] [address]. [place] [address] [place] [address] Care Team Providers Care Digital Photographic Printer Name Role Phone Unavailable Primary Care Provider Unavailabl e Encounter Details Date Type Department Care Team (Late st Contact Info) Description 10/25/2008 Abstract [place] [facility] [address] 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
--- OUTSIDE RECORDS SUMMARY | 2024-02-16 11:50 | XMS_ITS | Encounter Summary ---
Author Organization [facility] Address [address] [place] [address]. 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
--- OUTSIDE RECORDS SUMMARY | 2024-02-16 11:50 | XMS_ITS | Encounter Summary ---
Author Organization [facility] Address [address] [place] [address]. 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
--- OUTSIDE RECORDS SUMMARY | 2024-02-16 11:50 | XMS_ITS | Encounter Summary ---
Author Organization [facility] Address [address] [place] [address]. [place] [address] [place] [address] Care Team Providers Care Sand Technologist Name Role Phone Unavailable Primary Care Provider Unavailabl e Encounter Details Date Type Department Care Team (Late st Contact Info) Description 12/18/1999 Abstract [facility] [address] [place] [address] , Generic Conversion, Social History Tobacco Use Types Packs/Day Years Used Date Smoking Tobacco: Never Assessed Comments Unknown Sex and Gender Information Value Date Recorded Sex Assigned at Not on file Legal Sex Female 10:42 PM AQUATIC CENTRE MANAGER Gender Identity Not on file Sexual Orientation Not on file documented as of this encounter Plan of Treatment Not on file documented as of this encounter Visit Diagnoses Not on filedocumented in this encounter Additional Health Concerns Infection Onset Date Last Indicated Resolved Time MRSA 03/16/2018 03/16/2018 documented as of this encounter
--- OUTSIDE RECORDS SUMMARY | 2024-02-16 11:50 | XMS_ITS | Encounter Summary ---
Author Organization [facility] Address [address] [place] [address]. 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
--- OUTSIDE RECORDS SUMMARY | 2024-02-16 11:50 | XMS_ITS | Encounter Summary ---
Author Organization [facility] Address [address] [place] [address]. 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
--- OUTSIDE RECORDS SUMMARY | 2024-02-16 11:50 | XMS_ITS | Encounter Summary ---
Author Organization [facility] Address [address] [place] [address]. 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
--- OUTSIDE RECORDS SUMMARY | 2024-02-16 11:50 | XMS_ITS | Encounter Summary ---
Author Organization [facility] Address [address] [place] [address]. 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
--- OUTSIDE RECORDS SUMMARY | 2024-02-16 11:50 | XMS_ITS | Encounter Summary ---
Author Organization [facility] Address [address] [place] [address]. [place] [address] [place] [address] Care Team Providers Care Chiropractic Neurologist Name Role Phone Unavailable Primary Care Provider Unavailabl e Encounter Details Date Type Department Care Team (Late st Contact Info) Description 09/11/[address] 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
--- OUTSIDE RECORDS SUMMARY | 2024-02-16 11:50 | XMS_ITS | Encounter Summary ---
Author Organization [facility] Address [address] [place] [address]. 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
--- OUTSIDE RECORDS SUMMARY | 2024-02-16 11:50 | XMS_ITS | Encounter Summary ---
Author Organization [facility] Address [address] [place] [address]. 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
--- OUTSIDE RECORDS SUMMARY | 2024-02-16 11:50 | XMS_ITS | Encounter Summary ---
Author Organization [facility] Address [address] [place] [address]. 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
--- OUTSIDE RECORDS SUMMARY | 2024-02-16 11:50 | XMS_ITS | Encounter Summary ---
Author Organization [facility] Address [address] [place] [address]. [place] [address] [place] [address] Care Team Providers Care Masonry Contractor Name Role Phone Unavailable Primary Care Provider Unavailabl e Encounter Details Date Type Department Care Team (Late st Contact Info) Description 06/10/1997 Abstract [facility] [address] [place] [address] , Generic Conversion, Social History Tobacco Use Types Packs/Day Years Used Date Smoking Tobacco: Never Assessed Comments Unknown Sex and Gender Information Value Date Recorded Sex Assigned at Not on file Legal Sex Female 10:42 PM PLASTIC FIXTURE BUILDER Gender Identity Not on file Sexual Orientation Not on file documented as of this encounter Plan of Treatment Not on file documented as of this encounter Visit Diagnoses Not on filedocumented in this encounter Additional Health Concerns Infection Onset Date Last Indicated Resolved Time MRSA 03/16/2018 03/16/2018 documented as of this encounter
--- OUTSIDE RECORDS SUMMARY | 2024-02-16 11:50 | XMS_ITS | Encounter Summary ---
Author Organization [facility] Address [address] [place] [address]. 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
--- OUTSIDE RECORDS SUMMARY | 2024-02-16 11:50 | XMS_ITS | Encounter Summary ---
Author Organization [facility] Address [address] [place] [address]. [place] [address] [place] [address] Care Team Providers Care Manager Books Name Role Phone Unavailable Primary Care Provider Unavailabl e Encounter Details Date Type Department Care Team (Late st Contact Info) Description 05/16/[address] 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
--- OUTSIDE RECORDS SUMMARY | 2024-02-16 11:50 | XMS_ITS | Encounter Summary ---
Author Organization [facility] Address [address] [place] [address]. 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
--- OUTSIDE RECORDS SUMMARY | 2024-02-16 11:50 | XMS_ITS | Encounter Summary ---
Author Organization [facility] Address [address] [place] [address]. 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
--- OUTSIDE RECORDS SUMMARY | 2024-02-16 11:50 | XMS_ITS | Encounter Summary ---
Author Organization [facility] Address [address] [place] [address]. 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
--- OUTSIDE RECORDS SUMMARY | 2024-02-16 11:50 | XMS_ITS | Encounter Summary ---
Author Organization [facility] Address [address] [place] [address]. 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
--- OUTSIDE RECORDS SUMMARY | 2024-02-16 11:50 | XMS_ITS | Encounter Summary ---
Author Organization [facility] Address [address] [place] [address]. 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
--- OUTSIDE RECORDS SUMMARY | 2024-02-16 11:51 | XMS_ITS | Encounter Summary ---
Author Organization [facility] Address [address] [place] [address]. 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
--- OUTSIDE RECORDS SUMMARY | 2024-02-16 11:51 | XMS_ITS | Encounter Summary ---
Author Organization [facility] Address [address] [place] [address]. [place] [address] [place] [address] Care Team Providers Care Compound Machine Operator Name Role Phone Unavailable Primary Care Provider Unavailabl e Encounter Details Date Type Department Care Team (Late st Contact Info) Description 06/03/1994 Abstract [facility] [address] [place] [address] , Generic Conversion, Social History Tobacco Use Types Packs/Day Years Used Date Smoking Tobacco: Never Assessed Comments Unknown Sex and Gender Information Value Date Recorded Sex Assigned at Not on file Legal Sex Female 10:42 PM TENANT RELATIONS COORDINATOR Gender Identity Not on file Sexual Orientation Not on file documented as of this encounter Plan of Treatment Not on file documented as of this encounter Visit Diagnoses Not on filedocumented in this encounter Additional Health Concerns Infection Onset Date Last Indicated Resolved Time MRSA 03/16/2018 03/16/2018 documented as of this encounter
--- OUTSIDE RECORDS SUMMARY | 2024-02-16 11:51 | XMS_ITS | Encounter Summary ---
Author Organization [facility] Address [address] [place] [address]. 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
--- OUTSIDE RECORDS SUMMARY | 2024-02-16 13:31 | XMS_ITS | Encounter Summary ---
Author Organization [facility] Address [address] [place] [address]. 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 Gender Identity Not on file Sexual Orientation Not on file documented as of this encounter Plan of Treatment Not on file documented as of this encounter Procedures Procedure Name Priority Date/Time Associated Diagnosis Comments VAGINITIS SCREEN Routine 12/20/2015 8:32 PM CDT documented in this encounter Results * VAGINITIS SCREEN (12/20/2015 8:32 PM CDT) SPEC DESCRIPTION GENITAL 12/20/2015 3:49 PM CDT [facility] SPECIAL REQUESTS NO SPECIAL REQUEST 12/20/2015 3:49 PM CDT [facility] RESULT TRICHOMONAS VAGINALIS NEGATIVE 12/20/2015 8:32 PM CDT [facility] RESULT GARDNERELLA VAGINALIS POSITIVE 12/20/2015 8:32 PM CDT [facility] RESULT ALEKSANDR SPECIES POSITIVE 12/20/2015 8:32 PM CDT [facility] GENITAL SWAB / Unknown 12/20/2015 6:06 PM CDT Comment:VAGINAL SPECIMEN us Generic Conversion Md MAY MICROBIOLOGY - GENERAL ORDERABLES Final Result Performing Organization Address City/State/[facility] Co de Phone Number [facility] [address] [place] [address], [place] [phone] [id number] documented in this encounter Visit Diagnoses Not on filedocumented in this encounter
--- OUTSIDE RECORDS SUMMARY | 2024-02-16 13:31 | XMS_ITS | Encounter Summary ---
Author Organization [facility] Address [address] [place] [address]. [place], [place] [address] [place] [address] Care Team Providers Care Base Loader Name Role Phone Clark Graff DO Primary Care Provider [phone] Encounter Details Date Type Department Care Team [...] on file Legal Sex Female 10:42 PM ASSESSMENT RN Gender Identity Not on file Sexual Orientation Not on file COVID-19 Exposure Response Date Recorded In the last month, have you been in contact with someone who was confirmed or suspected to have Coronavirus / COVID-19? No / Unsure 01/17/2020 9:35 AM ASSESSMENT RN documented as of this encounter Plan of Treatment Not on file documented as of this encounter Visit Diagnoses Not on filedocumented in this encounter Additional Health Concerns Infection Onset Date Last Indicated Resolved Time MRSA 03/16/2018 03/16/2018 documented as of this encounter Care Teams Base Loader Relationship Specialty Start Date End Date Clark Graff DO [address] [place] [address] PCP - General FAMILY PRACTICE 01/17/20 documented as of this encounter
--- OUTSIDE RECORDS SUMMARY | 2024-02-16 13:31 | XMS_ITS | Encounter Summary ---
Author Organization [facility] Address [address] [place] [address]. 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
--- OUTSIDE RECORDS SUMMARY | 2024-02-16 13:31 | XMS_ITS | Encounter Summary ---
Author Organization [facility] Address [address] [place] [address]. 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
--- OUTSIDE RECORDS SUMMARY | 2024-02-16 13:31 | XMS_ITS | Encounter Summary ---
Author Organization [facility] Address [address] [place] [address]. 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 SPECIAL REQUESTS NO SPECIAL REQUEST 12/20/2015 3:[address] [facility] CULTURE RESULT NO HERPES SIMPLEX TYPES 1 OR 2 ISOLATED 12/24/2015 10:[address] [facility] SPECIMEN FROM UNSPECIFIED BODY SITE / Unknown 12/20/2015 4:44 PM CDT Comment:GENITAL us Generic Conversion Md MAY MICROBIOLOGY - GENERAL ORDERABLES Final Result [facility] [address] [place] [address], [id number] documented in this encounter Visit Diagnoses Not on filedocumented in this encounter
--- OUTSIDE RECORDS SUMMARY | 2024-02-16 13:31 | XMS_ITS | Encounter Summary ---
Author Organization [facility] Address [address] [place] [address]. 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
--- OUTSIDE RECORDS SUMMARY | 2024-02-16 13:31 | XMS_ITS | Encounter Summary ---
Author Organization [facility] Address [address] [place] [address]. [place] [address] [place] [address] Care Team Providers Care [employer] Coordinator Name Role Phone Clark Graff DO Primary Care Provider Reason for Referral * Medication Prior Authorization - Closed Specialty Diagnoses / Procedures Referred By Contac t Referred To Contact Diagnoses Acute anxiety Issa Austin MD [address] [place] [address] Phone: tel: fax: Referral ID Status Reason Start Date Expiration Date Visits Re quested Visits Authorized [id number] Closed 1 1 ING OFFICER Reason for Visit * Reason Comments Anxiety Encounter Details Date Type Department Care Team (Late st Contact Info) Description 03/30/2023 4:14 PM NURSING OFFICER - 03/30/2023 5:17 PM NURSING OFFICER Emergency [facility] [address] [place] [address] Issa Austin MD [address] [place] [id number] Anxiety Discharge Disposition: Home or Self [...] file Legal Sex Female 10:42 PM NURSING OFFICER Gender Identity Not on file Sexual Orientation Not on file documented as of this encounter Last Filed Vital Signs Vital Sign Reading Time Taken Comments Blood Pressure 127/83 03/30/2023 4:20 PM NURSING OFFICER Pulse 90 03/30/2023 4:20 PM NURSING OFFICER Temperature 36.6 ??C (97.8 ??F) 03/30/2023 4:20 PM CS T Respiratory Rate 24 03/30/2023 4:20 PM NURSING OFFICER Oxygen Saturation 100% 03/30/2023 4:20 PM NURSING OFFICER Inhaled Oxygen Concentration - - Weight 105.2 kg (232 lb) 03/30/2023 4:20 PM NURSING OFFICER Height 177.8 cm (5' 10 ) 03/30/2023 4:20 PM NURSING OFFICER Body Mass Index 33.29 03/30/2023 4:20 PM NURSING OFFICER documented in this encounter Discharge Instructions * Attachments The following attachments cannot be sent through Care Everywhere. * Anxiety Discharge Instructions, Adult (Ugandan) documented in this encounter Medications at Time [...] cover rest of the cost to cab. ING OFFICER * Harpal Hook RN - 03/30/2023 5:03 PM CST EMS [facility] P.t. P.t. doesn't have a ride back to [facility]. P.t. states frantically I have no car, no one is able to get me. Isn't there a free shuttle service from here back to my house? When explaining that no shuttle service is available, P.t. became frantically worried and stating I haveno way to get home. Charge nurse was called. ING OFFICER * Lubna Kumar RN - 03/30/2023 4:17 PM CST To ED per EMS from home. Patient c/o anxiety. has hx meth use but hasn't used in [address] Asked if interested in [facility] [address] or any help. Patient is with [facility] and hopes to placed by them. is here in ED because of her anxiety. ING OFFICER * Issa Austin MD - 03/30/2023 4:14 [...] anxiety ANXIETY Clark Graff, DO [address] [id number] As needed New Prescriptions ALPRAZOLAM (XANAX) 1 MG TABLET Take 1 tablet (1 mg total) by mouth 2 (two) times daily as needed for Anxiety. Issa Austin MD 03/30/23 1635 ING OFFICER documented in this encounter Plan of Treatment [...] 03/30/23 at 1645 Given 03/30/2023 4:44 PM NURSING OFFICER 1 mg documented in this encounter Active and Recently Administered Medications Times are shown in NURSING OFFICER. Scheduled Medication Order 03/28/2023 2023 03/30/2023 ALPRAZolam (XANAX) tablet 1 mg (COMPLETED) 1 mg, Oral, Once, 1 dose, On 03/30/23 at [id number] (Given - Provid er: Harpal Hook RN) documented in this encounter Additional Health Concerns Infection Onset Date Last Indicated Resolved Time MRSA 03/16/2018 03/16/2018 documented as of this encounter Care Teams High [employer] Coordinator Relationship Specialty Start Date End Date Clark Graff DO [address] [place] [address] PCP - General FAMILY PRACTICE 01/17/20 documented as of this encounter
--- OUTSIDE RECORDS SUMMARY | 2024-02-16 13:31 | XMS_ITS | Encounter Summary ---
Author Organization [facility] Address [address] [place] [address]. 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
--- OUTSIDE RECORDS SUMMARY | 2024-02-16 13:31 | XMS_ITS | Encounter Summary ---
Author Organization [facility] Address [address] [place] [address]. [place] [address] [place] [address] Care Team Providers Care Records Technician Name Role Phone Dajuan Clarkhunter BUTLER Primary Care Provider Reason for Referral * Imaging (Emergency) - Closed Specialty Diagnoses / Procedures Referred By Contyamilex t Referred To Contact RADIOLOGY Procedures CT ABD+PEL W IV CON ONLY Tee Erwin MD [address] [place] [address] Phone: tel: fax: Referral ID Status Reason Start Date Expiration Date Visits Re quested Visits Authorized [id number] Closed 01/17/2020 02/15/2021 1 1 ING AND SPLICING SUPERVISOR Reason for Visit * Reason Comments Suicidal Ideation Abdominal Pain Encounter Details Date Type Department Care Team (Late st Contact Info) Description 01/17/2020 9:34 AM CUTTING AND SPLICING SUPERVISOR - 01/18/2020 9:34 AM CUTTING AND SPLICING SUPERVISOR Emergency [facility] [address] [address] Tee Erwin MD [address] [place] [address] Suicidal Ideation; Abdominal Pain Discharge [...] on file Legal Sex Female 10:42 PM CUTTING AND SPLICING SUPERVISOR Gender Identity Not on file Sexual Orientation Not on file COVID-19 Exposure Response Date Recorded In the last month, have you been in contact with someone who was confirmed or suspected to have Coronavirus / COVID-19? No / Unsure 01/17/2020 9:35 AM CUTTING AND SPLICING SUPERVISOR documented as of this encounter Last Filed Vital Signs Vital Sign Reading Time Taken Comments Blood Pressure 93/53 01/18/2020 9:00 AM CUTTING AND SPLICING SUPERVISOR Pulse 110 01/18/2020 9:00 AM CUTTING AND SPLICING SUPERVISOR Temperature 36.2 ??C (97.2 ??F) 01/18/2020 9:00 AM CS T Respiratory Rate 18 01/18/2020 9:00 AM CUTTING AND SPLICING SUPERVISOR Oxygen Saturation 97% 01/18/2020 9:00 AM CUTTING AND SPLICING SUPERVISOR Inhaled Oxygen Concentration - - Weight 154.7 kg (341 lb) 01/17/2020 9:44 AM CUTTING AND SPLICING SUPERVISOR Height 177.8 cm (5' 10 ) 01/17/2020 9:44 AM CUTTING AND SPLICING SUPERVISOR Body Mass Index 48.93 01/17/2020 9:44 AM CUTTING AND SPLICING SUPERVISOR documented in this encounter Medications at Time [...] CST Pt cooperative with transfer, no c/o ING AND SPLICING SUPERVISOR * Kirstie Fitzpatrick CNA - 01/18/2020 9:17 AM CST Ambulance is here to get pt. ING AND SPLICING SUPERVISOR * Lubna Kumar RN - 01/18/2020 8:10 AM CST Voluntary psych paperwork faxed to [facility] ING AND SPLICING SUPERVISOR * Lubna Kumar RN - 01/18/2020 7:22 [...] awre and will make some phone calls. ING AND SPLICING SUPERVISOR * Arianna Olguin RN - 01/18/2020 3:52 AM CST Pt gave junior underwriter rumable signed voluntary admission form for [facility]. States this is not one of the three places she is willing to go. Gabriel got on the robot to speak with the pt and explain that we arenot at a place that we can pick where the pt is admitted, because of the lack of beds. She is refusing to go to [facility] as a voluntary admission. Therefore, after Gabriel talked with him phosphorus processing supervisor, thecase worker that screened her - Anais - will come here in the AM in order to fill out an involuntary petition. * Arianna Olguin RN - 01/18/2020 2:47 AM CST Faxed whole chart and MD note to Addie with intake for [facility]. Addie is working remotely from home. Her home fax number is [phone] ING AND SPLICING SUPERVISOR * Arianna Olguin RN - 01/18/2020 1:40 AM CST Faxed whole chart and MD note to [facility]. [phone] (fax number) ING AND SPLICING SUPERVISOR * Arianna Olguin RN - 01/17/2020 11:45 PM CST Face sheet send to [facility] ING AND SPLICING SUPERVISOR * Arianna Olguin RN - 01/17/2020 11:02 PM CST Spoke with Gabriel, he said he will check else where. He is going to start with [facility]. ING AND SPLICING SUPERVISOR Haresh Olguin RN - 01/17/2020 10:48 PM CST Called to update Anais on decline. Called Gabriel to get him to check elsewhere. ING AND SPLICING SUPERVISOR * Arianna Olguin RN - 01/17/2020 10:44 PM CST [facility]. Stated that they just had a walk in come in and fill that bed so they are full. They will restaff in the AM to check back at 7am. ING AND SPLICING SUPERVISOR * Arianna Olguin RN - 01/17/2020 9:17 PM CST Nurse to nurse report was given to the [facility]. Labs faxed. ING AND SPLICING SUPERVISOR * Arianna Olguin RN - 01/17/2020 8:10 PM CST Spoke with Anais from [facility] - she also called to push the [facility] along. She left her number us to update her. [phone] ING AND SPLICING SUPERVISOR * Arianna Olguin RN - 01/17/2020 7:48 PM CST Called [facility] for bed [facility] update. Pt is still in [id number] report. There are two pt awaiting nurse to nurse ahead of here. Tayo said that if I do not hear from him within 45 minutes to 1 hour to call back. ING AND SPLICING SUPERVISOR ING AND SPLICING SUPERVISOR * Kelly Butterfield RN - 01/17/2020 7:05 PM CST Pt , Peyton calls. Peyton verifies medications via pt bottles at home. Proof Plate Maker changes med list accordingly. 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 States the past week or two she has been hearing voices and not acting as usual. reports that pt had a Meth Overdose in Apr of this year. ING AND SPLICING SUPERVISOR * Kelly Butterfield RN - 01/17/2020 5:55 PM CST Called to [facility], spoke with Tayo. Tayo verifies that info faxed has been received. States he will forward to a nurse for nurse to nurse. [phone] ING AND SPLICING SUPERVISOR * Kelly Butterfield RN - 01/17/2020 5:50 PM CST Pt returned to room. ING AND SPLICING SUPERVISOR * Kelly Butterfield RN - 01/17/2020 5:[address] per stretcher. ING AND SPLICING SUPERVISOR * Kelly Butterfield RN - 01/17/2020 5:34 PM CST Consent for CT with contrast signed and witnessed. ING AND SPLICING SUPERVISOR * Kelly Butterfield RN - 01/17/2020 4:19 PM CST Madelin from [facility] calls. Advises to fax info to Tayo at [facility]. [phone] Info faxed as directed. ING AND SPLICING SUPERVISOR * Kelly Butterfield RN - 01/17/2020 4:10 PM CST Counselor has ended telehealth - advised would be calling. ING AND SPLICING SUPERVISOR * Kelly Butterfield RN - 01/17/2020 3:28 PM CST Called to [facility] to request Mental Health Eval. Spoke with Madelin, she will speak with [employer] Advisor and discuss Telehealth vs face to face visit. ING AND SPLICING SUPERVISOR * Kelly Butterfield RN - 01/17/2020 1:57 PM CST LMOM with [facility] to arrange a counselor to evaluate. ING AND SPLICING SUPERVISOR * Kirstie Fitzpatrick CNA - 01/17/2020 1:35 PM CST Pt. Blood sugar was 114 ING AND SPLICING SUPERVISOR * Kirstie Fitzpatrick CNA - 01/17/2020 12:10 PM CST Lab is in room drawing labs on pt. ING AND SPLICING SUPERVISOR * Kelly Butterfield RN - 01/17/2020 11:[address] Erwin has ordered insulin. Pt refuses at this time. I don't want it until I can eat . ING AND SPLICING SUPERVISOR * Kelly Butterfield RN - 01/17/2020 11:27 AM CST Pt returned to room ING AND SPLICING SUPERVISOR * Kirstie Fitzpatrick CNA - 01/17/2020 11:20 AM CST Xray is here to get pt. ING AND SPLICING SUPERVISOR * Kelly Butterfield RN - 01/17/2020 11:20 AM CST Pt to radiology per WC. ING AND SPLICING SUPERVISOR * Kelly Butterfield RN - 01/17/2020 11:05 AM CST Pt advised of radiology orders. Pt is calm and agreeable. ING AND SPLICING SUPERVISOR * Issa Austin MD - 01/17/2020 10:23 [...] Value Ref Range PREG TEST NEGATIVE Specific [place] (U) 1.020 URINALYSIS Result Value Ref Range COLOR (U) YELLOW TRANSPARENCY CLEAR Specific [place] (U) 1.030 (H) 1.000 - 1.025 U [...] IV CON ONLY Final Result by User, [id number] (01/16 576) EXAM: CT ABD+PEL W CON DATE: 01/17/2020 [...] Achievable), or Image Gently techniques. Interpreted By: Perdo Lentz MD, 01/17/2020 6:10 PM XR ABD KUB Final Result by User, [id number] (01/16 1215) 01/17/2020, 1121 hours. HISTORY: Right [...] psychiatric facility. Issa Austin MD 02/10/20 1159 ING AND SPLICING SUPERVISOR ING AND SPLICING SUPERVISOR * Kirstie Fitzpatrick CNA - 01/17/2020 9:50 AM CST accu check 224 ING AND SPLICING SUPERVISOR * Kirstie Fitzpatrick CNA - 01/17/2020 9:50 AM CST Pt. Was changed into a gown. Pt. Belongings are are in bag at nurses station. ING AND SPLICING SUPERVISOR * Melony Erickson RN - 01/17/2020 9:47 [...] like they are going to come out. ING AND SPLICING SUPERVISOR documented in this encounter Plan of Treatment Not on file documented as of this encounter Procedures Procedure Name Priority Date/Time Associated Diagnosis Comments POCT GLUCOSE - CROCKER DOCKED DEVICE Routine 01/18/2020 7:24 AM CUTTING AND SPLICING SUPERVISOR POCT GLUCOSE - CROCKER DOCKED DEVICE Routine 01/17/2020 8:36 PM CUTTING AND SPLICING SUPERVISOR CT ABD+PEL W CON STAT 01/17/2020 5:46 PM CUTTING AND SPLICING SUPERVISOR POCT GLUCOSE - CROCKER DOCKED DEVICE Routine 01/17/2020 3:40 PM CUTTING AND SPLICING SUPERVISOR LACTIC ACID STAT 01/17/2020 2:04 PM CUTTING AND SPLICING SUPERVISOR LACTIC ACID STAT 01/17/2020 12:11 PM CUTTING AND SPLICING SUPERVISOR XR ABD KUB STAT 01/17/2020 11:39 AM CUTTING AND SPLICING SUPERVISOR CHLAMYDIA GC RNA Routine 01/17/2020 10:2 5 AM CUTTING AND SPLICING SUPERVISOR DRUG SCREEN RAPID STAT 01/17/2020 10: 25 AM CUTTING AND SPLICING SUPERVISOR PARTIAL THROMBOPLASTIN TIME,PTT STAT 01/17/2020 10:16 AM CUTTING AND SPLICING SUPERVISOR PROTHROMBIN TIME, VENOUS STAT 01/17/2020 10:16 AM CUTTING AND SPLICING SUPERVISOR COMPREHENSIVE METABOLIC PANEL STAT 01/17/2020 10:16 AM CUTTING AND SPLICING SUPERVISOR LACTIC ACID STAT 01/17/2020 10:16 AM CUTTING AND SPLICING SUPERVISOR CBC W/DIFF AUTOMATED STAT 01/17/2020 10:16 AM CUTTING AND SPLICING SUPERVISOR THYROID STIM HORMONE TSH STAT 01/17/2020 10:16 AM CUTTING AND SPLICING SUPERVISOR AMYLASE STAT 01/17/2020 10:16 AM CUTTING AND SPLICING SUPERVISOR MAGNESIUM STAT 01/17/2020 10:16 AM CUTTING AND SPLICING SUPERVISOR LIPASE STAT 01/17/2020 10:16 AM CUTTING AND SPLICING SUPERVISOR SALICYLATE STAT 01/17/2020 10:16 AM CUTTING AND SPLICING SUPERVISOR ETHANOL STAT 01/17/2020 10:16 AM CUTTING AND SPLICING SUPERVISOR ACETAMINOPHEN STAT 01/17/2020 10:16 AM CUTTING AND SPLICING SUPERVISOR HC URINALYSIS AUTO W/MICRO STAT 01/17/2020 10:06 AM CUTTING AND SPLICING SUPERVISOR TEST URINE STAT 01/17/2020 10:06 AM CUTTING AND SPLICING SUPERVISOR POCT GLUCOSE - CROCKER DOCKED DEVICE Routine 01/17/2020 9:49 AM CUTTING AND SPLICING SUPERVISOR documented in this encounter Results * (ABNORMAL) POCT glucose (01/18/2020 7:24 AM CUTTING AND SPLICING SUPERVISOR) GLUCOSE POC 164(H) 70 - 99 MG/DL 01/18/2020 7:26 AM CUTTING AND SPLICING SUPERVISOR [facility] 01/18/2020 7:24 AM CUTTING AND SPLICING SUPERVISOR Tee Erwin MD POCT ORDERABLES - DEVICE Final Result [facility] [place] [address], * (ABNORMAL) POCT glucose (01/17/2020 8:36 PM CUTTING AND SPLICING SUPERVISOR) GLUCOSE POC 124(H) 70 - 99 MG/DL 01/17/2020 8:49 PM CUTTING AND SPLICING SUPERVISOR [facility] Comment:Order Lab Draw 01/17/2020 8:36 PM CUTTING AND SPLICING SUPERVISOR Tee Erwin MD POCT ORDERABLES - DEVICE Final Result [facility] [address] [place] [address], * CT ABD+PEL W IV CON ONLY (01/17/2020 5:46 PM CUTTING AND SPLICING SUPERVISOR) Anatomical Region Laterality Modality Abdomen Computed Tomogra phy 01/17/2020 6:10 PM CUTTING AND SPLICING SUPERVISOR Impressions 01/17/2020 6:20 PM CUTTING AND SPLICING SUPERVISOR IMPRESSION: 1. ??Unchanged hypodensity in the liver. [...] 01/17/2020 6:10 PM Narrative 01/17/2020 6:20 PM CUTTING AND SPLICING SUPERVISOR EXAM: CT ABD+PEL W CON DATE: 01/17/2020 [...] Result * POCT glucose (01/17/2020 3:40 PM CUTTING AND SPLICING SUPERVISOR) GLUCOSE POC 98 70 - 99 MG/DL 01/17/2020 3:42 PM CUTTING AND SPLICING SUPERVISOR [facility] 01/17/2020 3:40 PM CUTTING AND SPLICING SUPERVISOR us Tee Erwin MD POCT ORDERABLES - DEVICE Final Result Performing Organization Address [facility]/ZIP Co de Phone Number [facility] [address] [place] [address], * LACTIC ACID (01/17/2020 2:04 PM CUTTING AND SPLICING SUPERVISOR) LACTIC ACID VENOUS 1.7 0.4 - 2.0 MMOL/L 01/17/2020 2:36 PM CUTTING AND SPLICING SUPERVISOR [facility] 01/17/2020 2:04 PM CUTTING AND SPLICING SUPERVISOR us Tee Erwin MD LABORATORY Final Result Performing Organization Address [facility] Co de Phone Number [facility] [address] [place] [address], * (ABNORMAL) LACTIC ACID (01/17/2020 12:11 PM CUTTING AND SPLICING SUPERVISOR) LACTIC ACID VENOUS 2.4(H) 0.4 - 2.0 MMOL/L 01/17/2020 12:38 PM CUTTING AND SPLICING SUPERVISOR [facility] Comment: AN ORDER FOR A REPEAT LACTIC ACID TEST IS REQUIRED WITHIN 6 HOURS OF DIAGNOSIS ON A PATIENT WITH SEVERE SEPSIS. 01/17/2020 12:1 1 PM CUTTING AND SPLICING SUPERVISOR us Tee Erwin MD LABORATORY Final Result [facility] [address] [place] [address], * XR ABD KUB (01/17/2020 11:39 AM CUTTING AND SPLICING SUPERVISOR) Anatomical Region Laterality Modality Abdomen Radiographic Erlinda ging 01/17/2020 12:1 0 PM CUTTING AND SPLICING SUPERVISOR Impressions 01/17/2020 12:14 PM CUTTING AND SPLICING SUPERVISOR IMPRESSION: Small calcifications in the pelvis suggesting phleboliths. Normal bowel gas pattern. Interpreted By: Wilmar Salmon MD, 01/17/2020 12:10 PM Narrative 01/17/2020 12:14 PM CUTTING AND SPLICING SUPERVISOR 01/17/2020, 1121 hours. HISTORY: Right upper quadrant [...] * CHLAMYDIA GC RNA (01/17/2020 10:25 AM CUTTING AND SPLICING SUPERVISOR) SPEC DESCRIPTION URINE 01/17/20 10:34 AM CUTTING AND SPLICING SUPERVISOR [facility] CHLAMYDIA RNA TMA NEGATIVE NEGATIVE 020 1:39 PM CUTTING AND SPLICING SUPERVISOR [facility] Comment:PERFORMED BY NUCLEIC ACID AMPLIFICATION N.GONORRHOEAE RNA TMA NEGATIVE NEGATIVE 01/18/2020 1:39 PM CUTTING AND SPLICING SUPERVISOR [facility] Comment:PERFORMED BY NUCLEIC ACID AMPLIFICATION URINE SPECIMEN / Unknown 01/17/2020 10:25 AM CUTTING AND SPLICING SUPERVISOR us Tee Erwin MD MICROBIOLOGY - GENERAL ORDERABL ES Final Result Performing Organization Address City/State/[facility] Co de Phone Number [facility] [address] [place] [address], [facility] [address] [place] [address], [place] [phone] * (ABNORMAL) DRUG SCREEN RAPID (01/17/2020 10:25 AM CUTTING AND SPLICING SUPERVISOR) CANNABINOIDS SCREEN (U) NEGATIVE NEGATIVE 01/17/2020 10:47 AM CUTTING AND SPLICING SUPERVISOR [facility] PHENCYCLIDINE PCP (U) NEGATIVE NEGATIVE 01/17/2020 10:47 AM CUTTING AND SPLICING SUPERVISOR [facility] COCAINE METABOLITES (U) NEGATIVE NEGATIVE 01/17/2020 10:47 AM CUTTING AND SPLICING SUPERVISOR [facility] METHAMPHETAMINE (U) POSITIVE(A) NEGATIVE 01/17/2020 10:47 AM CUTTING AND SPLICING SUPERVISOR [facility] OPIATE SCREEN (U) NEGATIVE NEGATIVE 020 10:47 AM CUTTING AND SPLICING SUPERVISOR [facility] AMPHETAMINE (U) POSITIVE(A) NEGATIVE 01/17/20 10:47 AM CUTTING AND SPLICING SUPERVISOR [facility] BENZODIAZEPINES SCREEN (U) POSITIVE(A) NEGATIVE 01/17/2020 10:47 AM CUTTING AND SPLICING SUPERVISOR [facility] TRICYCLIC ANTIDEPRESSANT SCREEN (U) NEGATIVE NEGATIVE 01/17/2020 10:47 AM CUTTING AND SPLICING SUPERVISOR [facility] METHADONE (U) NEGATIVE NEGATIVE 01/17/2020 10:47 AM CUTTING AND SPLICING SUPERVISOR [facility] BARBITURATES SCREEN (U) NEGATIVE NEGATIVE 01/17/2020 10:47 AM CUTTING AND SPLICING SUPERVISOR [facility] OXYCODONE SCREEN (U) NEGATIVE NEGATIVE 01/17/2020 10:47 AM CUTTING AND SPLICING SUPERVISOR [facility] PROPOXYPHENE SCREEN (U) NEGATIVE NEGATIVE 01/17/2020 10:47 AM CUTTING AND SPLICING SUPERVISOR [facility] URINE TOX COMMENT THIS TEST METHODOLOGY IS DESIGNED AND OFFERED A RAPID TURNAROUND, QUALITATIVE SCREENING PROCEDURE TO AID IN THE IMMEDIATE MEDICAL ASSESSMENT OF PATIENTS SUSPECTED OF SUBSTANCE ABUSE. 01/17/2020 10:32 AM CUTTING AND SPLICING SUPERVISOR [facility] Comment: CLINICAL CONSIDERATION AND PROFESSIONAL JUDGMENT MUST BE APPLIED TO ANY DRUG OF ABUSE TEST RESULT, BOTH POSITIVE AND NEGATIVE. CONFIRMATORY QUANTITATIVE RESULTS ARE AVAILABLE THROUGH OUR [facility]. Urine specimen (specimen) URINE SPECIMEN / Unknown 01/17/2020 10:25 AM CUTTING AND SPLICING SUPERVISOR us Tee Erwin MD URINE ORDERABLES Final Result Performing Organization Address City/[facility]/ZIP Co de Phone Number [facility] [address] [place] [address], * (ABNORMAL) LIPASE (01/17/2020 10:16 AM CUTTING AND SPLICING SUPERVISOR) LIPASE 599(H) 73 - 393 UNITS/L 01/17/2020 10:56 AM CUTTING AND SPLICING SUPERVISOR [facility] 01/17/2020 10:1 6 AM CUTTING AND SPLICING SUPERVISOR us Tee Erwin MD LABORATORY Final Result Performing Organization Address City/[facility]/ZIP Co de Phone Number [facility] [address] [place] [address], * AMYLASE (01/17/2020 10:16 AM CUTTING AND SPLICING SUPERVISOR) AMYLASE S/P/B 47 25 - 115 UNITS/L 01/17/2020 10:56 AM CUTTING AND SPLICING SUPERVISOR [facility] 01/17/2020 10:1 6 AM CUTTING AND SPLICING SUPERVISOR us Tee Erwin MD LABORATORY Final Result Performing Organization Address City/[facility]/ZIP Co de Phone Number [facility] [address] [place] [address], * (ABNORMAL) LACTIC ACID (01/17/2020 10:16 AM CUTTING AND SPLICING SUPERVISOR) LACTIC ACID VENOUS 2.7(H) 0.4 - 2.0 MMOL/L 01/17/2020 10:54 AM CUTTING AND SPLICING SUPERVISOR [facility] Comment: AN ORDER FOR A REPEAT LACTIC ACID TEST IS REQUIRED WITHIN 6 HOURS OF DIAGNOSIS ON A PATIENT WITH SEVERE SEPSIS. 01/17/2020 10:1 6 AM CUTTING AND SPLICING SUPERVISOR us Tee Erwin MD LABORATORY Final Result Performing Organization Address [facility] Co de Phone Number [facility] [address] [place] [address], * SALICYLATE (01/17/2020 10:16 AM CUTTING AND SPLICING SUPERVISOR) SALICYLATES 3.3 2.8 - 20.0 MG/DL 01/17/2020 11:05 AM CUTTING AND SPLICING SUPERVISOR [facility] 01/17/2020 10:1 6 AM CUTTING AND SPLICING SUPERVISOR us Tee Erwin MD LABORATORY Final Result Performing Organization Address City/[facility] Co de Phone Number [facility] [place] [address], * (ABNORMAL) ACETAMINOPHEN (01/17/2020 10:16 AM CUTTING AND SPLICING SUPERVISOR) ACETAMINOPHEN S/P/B 0.0(L) 10.0 - 30.0 MCG/ML 01/17/2020 11:05 AM CUTTING AND SPLICING SUPERVISOR [facility] 01/17/2020 10:1 6 AM CUTTING AND SPLICING SUPERVISOR us Tee Erwin MD LABORATORY Final Result Performing Organization Address City/[facility]/ZIP Co de Phone Number [facility] [address] [place] [address], * (ABNORMAL) ETHANOL (01/17/2020 10:16 AM CUTTING AND SPLICING SUPERVISOR) ALCOHOL S/P/B <0.003(H) 0 G/DL 01/17/2020 11:05 AM CUTTING AND SPLICING SUPERVISOR [facility] 01/17/2020 10:1 6 AM CUTTING AND SPLICING SUPERVISOR us Tee Erwin MD LABORATORY Final Result Performing Organization Address City/[facility]/ZIP Co de Phone Number [facility] [address] [place] [id number], * THYROID STIM HORMONE, TSH (01/17/2020 10:16 AM CUTTING AND SPLICING SUPERVISOR) TSH 2.215 0.358 - 3.740 uIU/ML 01/17/2020 11:05 AM CUTTING AND SPLICING SUPERVISOR [facility] 01/17/2020 10:1 6 AM CUTTING AND SPLICING SUPERVISOR us Tee Erwin MD LABORATORY Final Result Performing Organization Address City/[facility]/ZIP Co de Phone Number [facility] [address] [place] [address], * (ABNORMAL) MAGNESIUM (01/17/2020 10:16 AM CUTTING AND SPLICING SUPERVISOR) MAGNESIUM 1.4(L) 1.8 - 2.4 MG/DL 01/17/2020 10:56 AM CUTTING AND SPLICING SUPERVISOR [facility] 01/17/2020 10:1 6 AM CUTTING AND SPLICING SUPERVISOR us Tee Erwin MD LABORATORY Final Result Performing Organization Address City/[facility]/ZIP Co de Phone Number [facility] [address] [place] [id number], * (ABNORMAL) COMPREHENSIVE METABOLIC PANEL (01/17/2020 10:16 AM CUTTING AND SPLICING SUPERVISOR) SODIUM S/P/B 136 136 - 145 MMOL/L 01/17/2020 10:56 AM [facility] POTASSIUM S/P/B 4.5 3.5 - 5.1 MMOL/L 01/17/2020 10:56 AM [facility] CHLORIDE S/P/B 97(L) 98 - 107 MMOL/L 01/17/2020 10:56 AM [facility] CO2 30.5 21.0 - 32.0 MMOL/L 01/17/2020 10:56 AM [facility] GLUCOSE 224(H) 70 - 99 MG/DL 01/17/2020 10:56 AM [facility] Comment: FASTING GLUCOSE 100 TO 125 MG/DL IS CONSISTENT WITH IMPAIRED FASTING GLUCOSE. FASTING GLUCOSE >125 MG/DL IS CONSISTENT WITH DIABETES. RANDOM GLUCOSE >200 MG/DL WITH HYPERGLYCEMIC SYMPTOMS IS CONSISTENT WITH DIABETES. PER ADA GUIDELINES BUN 11 6 - 24 MG/DL 01/17/2020 10:56 AM [facility] CREATININE S/P/B 0.85 0.55 - 1.02 MG/DL 01/17/2020 10:56 AM [facility] CALCIUM S/P/B 9.5 8.4 - 10.5 MG/DL 01/17/2020 10:56 AM [facility] BILIRUBIN TOTAL S/P/B 0.2 0.2 - 1.0 MG/DL 01/17/2020 10:56 AM [facility] Comment: THIS ASSAY IS NOT RECOMMENDED FOR PATIENTS UNDERGOING TREATMENT WITH ELTROMBOPAG DUE TO THE POTENTIAL FOR FALSELY ELEVATED RESULTS. ALKALINE PHOSPHATASE S/P/B 65 37 - 98 U/L 01/17/2020 10:56 AM [facility] AST 14(L) 15 - 37 U/L 01/17/2020 10:56 AM [facility] ALT 25 14 - 59 U/L 01/17/2020 10:56 AM [facility] TOTAL PROTEIN S/P/B 7.5 6.4 - 8.2 G/DL 01/17/2020 10:56 AM [facility] ALBUMIN S/P/B 3.6 3.4 - 5.0 G/DL 01/17/2020 10:56 AM CUTTING AND SPLICING SUPERVISOR [facility] ANION GAP 8.5 5.0 - 15.0 MMOL/L 01/17/2020 10:56 AM [facility] OSMOLALITY (CALC) 288 MOSM/KG 020 10:56 AM [facility] Comment:REFERENCE RANGE NOT ESTABLISHED EGFR NON-AFR. AMER. 88(L) >89 ML/MIN/1. 73 M2 01/17/2020 10:56 AM CUTTING AND SPLICING SUPERVISOR [facility] EGFR AFR. AMER. >90 >89 ML/MIN/1. 73 M2 01/17/2020 10:56 AM [facility] GFR NOTES GFR REFERENCE S: 01/17/2020 10:56 AM [facility] Comment: THE ESTIMATED GFR IS CALCULATED [...] <15 ml/min/1.73 m2 01/17/2020 10:1 6 AM [employer]PLICING SUPERVISOR Tee Erwin MD LABORATORY Final Result [facility] [address] [place] [address], * PARTIAL THROMBOPLASTIN TIME,PTT (01/17/2020 10:16 AM [employer]PLICING SUPERVISOR) PTT 32.3 25.1 - 36.5 SEC 01/17/2020 10:44 AM [employer]PER[employer] [facility] Comment:THERAPEUTIC RANGE: 4 6.2-77.0 SEC 01/17/2020 10:1 6 AM [employer]PLICING SUPERVISOR us Tee Erwin MD LABORATORY Final Result [facility] [address] [place] [address], * PROTIME/INR, VENOUS (01/17/2020 10:16 AM [employer] SUPERVISOR) PROTIME 11.5 9.4 - 12.5 SEC 01/17/2020 10:44 AM [employer] [facility] [facility] INR 1.0 0.9 - 1.1 01/17/2020 10:44 AM CUTTING AND SPLICING SUPERVISOR [facility] 01/17/2020 10:1 6 AM CUTTING AND SPLICING SUPERVISOR Tee Erwin MD LABORATORY Final Result Performing Organization Address City/[facility]/ZIP Co de Phone Number [facility] [address] [place] [address], * (ABNORMAL) CBC W/DIFF AUTOMATED (01/17/2020 10:16 AM CUTTING AND SPLICING SUPERVISOR) WBC 10.7 4.5 - 10.8 x10'3/uL 01/17/2020 10:28 AM [facility] RBC 5.09 4.10 - 5.40 x10'6/uL 01/17/2020 10:28 AM [facility] HGB 14.0 12.0 - 16.0 G/DL 01/17/2020 10:28 AM [facility] HCT 43.3 36.0 - 47.0 % 01/17/2020 10:28 AM [facility] MCV 85.1 78.0 - 100.0 FL 01/17/2020 10:28 AM [facility] MCH 27.5 27.0 - 31.0 PG 01/17/2020 10:28 AM [facility] MCHC 32.3(L) 33.0 - 36.0 G/DL 01/17/2020 10:28 AM [facility] RDW 13.5 11.5 - 14.5 % 01/17/2020 10:28 AM [facility] PLT 388(H) 150 - 350 x10'3/uL 01/17/2020 10:28 AM [facility] MPV 9.4 7.4 - 10.4 FL 01/17/2020 10:28 AM [facility] DIFFERENTIAL COMMENT NORMAL REFERENCE RANGE NOT ESTABLISHED FOR THE PROPORTIONAL LEUKOCYTE DIFFERENTIAL. 01/17/2020 10:28 AM [facility] SEG NEUTROPHILS 59.3 % 0 10:28 AM [facility] LYMPHOCYTES 30.1 % 01/17/2020 10:28 AM [facility] MONOCYTES 6.3 % 01/17/2020 10:28 AM [facility] EOSINOPHILS 3.2 % 01/17/2020 10:28 AM [facility] BASOPHILS 0.7 % 01/17/2020 10:28 AM [facility] IMMATURE GRANS % 0.4 % 01/17/20 20 10:28 AM [facility] NRBC 0.0 % 01/17/2020 10:28 AM [facility] ABS. NEUTROPHILS 6.34 1.60 - 8.30 x10'3/uL 01/17/2020 10:28 AM [facility] ABS. LYMPHOCYTES 3.21 0.80 - 4.70 x10'3/uL 01/17/2020 10:28 AM [facility] ABS. MONOCYTES 0.67 0.00 - 1.50 x10'3/uL 01/17/2020 10:28 AM [facility] ABS. EOSINOPHILS 0.34 0.00 - 0.40 x10'3/uL 01/17/2020 10:28 AM [facility] ABS. BASOPHILS 0.08 0.00 - 0.20 x10'3/uL 01/17/2020 10:28 AM [facility] ABS. IMMATURE GRANULOCYTES 0.04(H) 0.00 - 0.03 x10'3/uL 01/17/2020 10:28 AM [facility] ABS. NUCLEATED RBC'S 0.00 0.00 x10'3/uL 01/17/2020 10:28 AM [facility] 01/17/2020 10:1 6 AM CUTTING AND SPLICING SUPERVISOR Tee Erwin MD LABORATORY Final Result [facility] [address] [place] [address], * (ABNORMAL) URINALYSIS (01/17/2020 10:06 AM CUTTING AND SPLICING SUPERVISOR) COLOR (U) YELLOW 01/17/2020 10:38 AM [facility] TRANSPARENCY CLEAR 01/17/2020 10:38 AM [facility] SPECIFIC GRAVITY (U) 1.030(H) 1.000 - 1.025 01/17/2020 10:38 AM [facility] Comment:EQUAL TO OR GREATER THAN U PH 5.0 5.0 - 8.0 01/17/2020 10:38 AM [facility] LEUKOCYTES (U) NEGATIVE NEGATIVE 01/17/2020 10:38 AM [facility] NITRITES NEGATIVE NEGATIVE 01/17/2020 10:38 AM [facility] PROTEIN (U) NEGATIVE NEGATIVE 01/17/2020 10:38 AM [facility] URINE GLUCOSE NEGATIVE NEGATIVE 01/17/2020 10:38 AM [facility] KETONES MG/DL (U) NEGATIVE NEGATIVE 01/17/2020 10:38 AM [facility] UROBILINOGEN 0.2 <1.0 EU/DL 01/17/2020 10:38 AM [facility] BILIRUBIN (U) NEGATIVE NEGATIVE 01/17/2020 10:38 AM [facility] BLOOD (U) NEGATIVE NEGATIVE 01/17/2020 10:38 AM [facility] WBC/HPF 0-5 0 - 5 /HPF 01/17/2020 10:38 AM [facility] EPI/HPF MODERATE /LPF 01/17/2020 10:38 AM CUTTING AND SPLICING SUPERVISOR [facility] URINE SPECIMEN / Unknown 01/17/2020 10:06 AM CUTTING AND SPLICING SUPERVISOR us Tee Erwin MD URINE ORDERABLES Final Result Performing Organization Address [facility] Co de Phone Number [facility] [address] [place] [address], * TEST URINE (01/17/2020 10:06 AM CUTTING AND SPLICING SUPERVISOR) PREG TEST NEGATIVE 01/17/2020 10:35 AM CUTTING AND SPLICING SUPERVISOR [facility] SPECIFIC GRAVITY (U) 1.020 01/17/2020 10:35 AM CUTTING AND SPLICING SUPERVISOR [facility] URINE SPECIMEN / Unknown 01/17/2020 10:06 AM CUTTING AND SPLICING SUPERVISOR us Tee Erwin MD URINE ORDERABLES Final Result Performing Organization Address [facility] Co de Phone Number [facility] [address] [place] [address], * (ABNORMAL) POCT glucose (01/17/2020 9:49 AM CUTTING AND SPLICING SUPERVISOR) GLUCOSE POC 224(H) 70 - 99 MG/DL 01/17/2020 9:51 AM CUTTING AND SPLICING SUPERVISOR [facility] 01/17/2020 9:49 AM CUTTING AND SPLICING SUPERVISOR us Tee Erwin MD POCT ORDERABLES - DEVICE Final Result Performing Organization Address [facility] Co de Phone Number [facility] [address] [place] [address], documented in this encounter Visit Diagnoses Diagnosis Suicidal ideation- Primary documented in this encounter Administered Medications Inactive Administered Medications - up to 3 most recent administrations Medication Order MAR Action Action Date Dose Rate Site ALPRAZolam (XANAX) tablet 1 mg 1 mg, Oral, 2 times daily, First dose on Thu01/18/20 at 0900, Until Discontinued Given 01/18/2020 8:59 AM CUTTING AND SPLICING SUPERVISOR 1 mg DULoxetine (CYMBALTA) capsule 60 mg 60 mg, Oral, 2 times daily, First dose on Thu01/18/20 at 0900, Until Discontinued, Swallow capsule whole or it may be opened and the contents sprinkled on applesauce. Given 01/18/2020 9:02 AM CUTTING AND SPLICING SUPERVISOR 60 mg gabapentin (NEURONTIN) capsule 100 mg 100 mg, Oral, 2 times daily, First dose on Thu01/18/20 at 0900, Until Discontinued Given 01/18/2020 9:00 AM CUTTING AND SPLICING SUPERVISOR 100 mg haloperidol (HALDOL) tablet 5 mg 5 mg, Oral, Once, 1 dose, On Thu01/17/20 at 1845 Given 01/17/2020 6:44 PM CUTTING AND SPLICING SUPERVISOR 5 mg insulin glargine (LANTUS) injection 40 Units 40 Units, Subcutaneous, Nightly at bedtime, First dose on Thu01/17/20 at 2100, Until Discontinued Given 01/17/2020 8:33 PM CUTTING AND SPLICING SUPERVISOR 40 Units Left Arm insulin glargine (LANTUS) injection 80 Units 80 Units, Subcutaneous, Nightly at bedtime, First dose on Thu01/18/20 at 2100, Until Discontinued insulin regular (NOVOLIN R/HUMULIN R) injection 8 Units 8 Units, Subcutaneous, Once, 1 dose, On Thu01/17/20 at 1130, For sliding scale, activate Sliding Scale Insulin order set. Given 01/17/2020 12:43 PM CUTTING AND SPLICING SUPERVISOR 8 Units Right Arm iopamidol (ISOVUE-370) 76 % injection 95 mL 95 mL, Intravenous, IMG once as needed, Contrast, 1 dose, Starting on Thu01/17/20 at 1747, Until Thu01/17/20 at 1747 Given 01/17/2020 5:47 PM CUTTING AND SPLICING SUPERVISOR 95 mLs ketorolac (TORADOL) injection 30 mg 30 mg, Intravenous, Once, 1 dose, On Thu01/17/20 at 1330, For IV administration, give over 15 seconds. Given 01/17/2020 1:42 PM CUTTING AND SPLICING SUPERVISOR 30 mg LORazepam (ATIVAN) tablet 2 mg 2 mg, Oral, Once, 1 dose, On Thu01/17/20 at 1430 Given 01/17/2020 2:33 PM CUTTING AND SPLICING SUPERVISOR 2 mg LORazepam (ATIVAN) tablet 2 mg 2 mg, Oral, Once, 1 dose, On Thu01/17/20 at 1700, MEDICATION FOR TAKE HOME Given 01/17/2020 5:09 PM CUTTING AND SPLICING SUPERVISOR 2 mg metFORMIN (GLUCOPHAGE) tablet 1,000 mg 1,000 mg, Oral, 2 times daily with meals, First dose on Thu01/18/20 at 0815, Until Discontinued Given 01/18/2020 9:00 AM CUTTING AND SPLICING SUPERVISOR 1,000 mg metoprolol tartrate (LOPRESSOR) tablet 25 mg 25 mg, Oral, Once, 1 dose, On Thu01/18/20 at 0830 Given 01/18/2020 8:59 AM CUTTING AND SPLICING SUPERVISOR 25 mg sodium chloride 0.9% bolus infusion SOLN 1,000 mL 1,000 mL, Intravenous, Administer over 15 Minutes, Once, 1 dose, On Thu01/17/20 at 1115 New Bag 01/17/2020 11:55 AM CUTTING AND SPLICING SUPERVISOR 1,000 mLs traZODone (DESYREL) tablet 200 mg 200 mg, Oral, Nightly at bedtime, First dose on Thu01/18/20 at 2100, Until Discontinued vitamin D3 (cholecalciferol) tablet 5,000 Units 5,000 Units, Oral, Daily, First dose on Thu01/18/20 at 0900, Until Discontinued, 1000 units = 25 mcg Given 01/18/2020 9:01 AM CUTTING AND SPLICING SUPERVISOR 5,000 Units ziprasidone (GEODON) capsule 40 mg 40 mg, Oral, 2 times daily with meals, First dose on Thu01/18/20 at 0845, Until Discontinued, May cause prolongation of QT interval. Take with food. HAZARDOUS MEDICATION Given 01/18/2020 9:03 AM CUTTING AND SPLICING SUPERVISOR 40 mg ziprasidone (GEODON) injection 20 mg 20 mg, Intramuscular, Once, 1 dose, On Thu01/17/20 at 2030, Reconstitute with 1.2 mL Sterile Water for Injection to obtain a final concentration of 20 mg/mL. Given 01/17/2020 8:33 PM CUTTING AND SPLICING SUPERVISOR 20 mg Left Deltoid documented in this encounter Active and Recently Administered Medications Times are shown in CUTTING AND SPLICING SUPERVISOR. Scheduled Medication Order 01/16/2020 01/17/2020 01/18/2020 ALPRAZolam [...] documented as of this encounter Care Teams Records Technician Relationship Specialty Start Date End Date Clark Graff DO [facility] [place] [address] PCP - General FAMILY PRACTICE 01/17/20 documented as of this encounter
--- OUTSIDE RECORDS SUMMARY | 2024-02-16 13:31 | XMS_ITS | Encounter Summary ---
Author Organization [facility] Address [address] [place] [address]. [place] [address] [place] [address] Care Team Providers Care Traffic Rate Analyst Name Role Phone Unavailable Primary Care Provider Unavailabl e Encounter Details Date Type Department Care Team (Late st Contact Info) Description 11/10/2016 Abstract [facility] [address] [address] Pasquale Agudelo MD [address] [place] [id number] Social History Tobacco Use Types Packs/Day Years Used Date Smoking Tobacco: Never Assessed Comments Unknown Sex and Gender Information Value Date Recorded Sex Assigned at Not on file Legal Sex Female 10:42 PM ACUTE CARE PHYSICAL THERAPIST Gender Identity Not on file Sexual Orientation [...]
--- OUTSIDE RECORDS SUMMARY | 2024-02-16 13:31 | XMS_ITS | Encounter Summary ---
Author Organization [facility] Address [address] [place] [address]. 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 Gender Identity Not on file Sexual Orientation [...] Consent given by: Patient Risks discussed: Pain Edwards protocol: Patient identity confirmed: Verbally with patient [...] it with the use of a wound geophysical prospecting permit agent.) Post-procedure details: Neurovascular status: intact Confirmation: No [...] of 09/28/2023 4:47 PM Disposition: Discharge Follow-Up: [facility] [address] [place] [address] If symptoms worsen Malik Peña MD 09/28/2023 6:02 PM Malik Peña MD 09/28/23 1802 * Lubna Kumar RN - 09/28/2023 2:33 PM CDT To ED per EMS with ring stuck on right ring finger. Was seen at [facility] yesterday but were unable to remove [...] ??Consent given by: ??Patient ??Risks discussed: ??Pain Edwards protocol: ??Patient identity confirmed: ??Verbally with patient [...] it with the use of a wound geophysical prospecting permit agent.) Post-procedure details: ??Neurovascular status: intact ?Confirmation: ??No [...] documented as of this encounter Care Teams Hat Cone Inspector Relationship Specialty Start Date End Date Clark Graff DO [address] [place] [address] PCP - General FAMILY PRACTICE 01/17/20 documented as of this encounter
--- OUTSIDE RECORDS SUMMARY | 2024-02-16 13:31 | XMS_ITS | Encounter Summary ---
Author Organization [facility] Address [address] [place] [address]. [place] [address] [place] [address] Care Team Providers Care Perinatal Instructor Name Role Phone Ana MariaClark manriquez Primary Care Provider [phone] Encounter Details Date Type Department Care Team (Latest Contact Info) Description 04/02/2022 2:48 PM PHYSICAL OPTICS TEACHER - 04/02/2022 11:59 PM [facility] Hospital Encounter [facility] [address] [place] [address] Marcela Lowe, MACHINE BINDING FOLDER [address] [place] [address] Discharge Disposition: Home or Self Care (Routine [...] on file Legal Sex Female 10:42 PM PHYSICAL OPTICS TEACHER Gender Identity Not on file Sexual [...] PAPILLOMAVIRUS, HIGH-RISK TYPES Routine 04/02/2022 8:00 AM PHYSICAL OPTICS TEACHER documented in this encounter Results * HUMAN PAPILLOMAVIRUS, HIGH-RISK TYPES (04/02/2022 8:00 AM PHYSICAL OPTICS TEACHER) SPEC DESCRIPTION CERVIX 04/04/19 2:54 PM PHYSICAL OPTICS TEACHER [facility] HPV DNA HIGH RISK NEGATIVE NEGATIVE 04/04/2022 7:19 PM PHYSICAL OPTICS TEACHER [facility] Comment:SEE CYTOLOGY REPORT 04/02/2022 8:00 AM PHYSICAL OPTICS TEACHER Marcela Lowe MACHINE BINDING FOLDER PATHOLOGY/CYTOLOGY ORDERA BLES Final Result [facility] [address] [facility] [address], [place] [phone] documented in this encounter Visit Diagnoses Not on filedocumented in this encounter Additional Health Concerns Infection Onset Date Last Indicated Resolved Time MRSA 03/16/2018 03/16/2018 documented as of this encounter Care Teams Perinatal Instructor Relationship Specialty Start Date End Date Clark Graff DO [address] [place] [address] PCP - General FAMILY PRACTICE 01/17/20 documented as of this encounter
--- OUTSIDE RECORDS SUMMARY | 2024-02-16 13:31 | XMS_ITS | Encounter Summary ---
Author Organization [facility] Address [address] [place] [address]. [place] [address] [place] [address] Care Team Providers Care Bee Robber Name Role Phone Unavailable Primary Care Provider Unavailabl e Encounter Details Date Type Department Care Team (Late st Contact Info) Description 01/02/2017 Abstract [facility] [address] 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
--- OUTSIDE RECORDS SUMMARY | 2024-02-16 13:31 | XMS_ITS | Encounter Summary ---
Author Organization [facility] Address [address] [place] [address]. 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
--- OUTSIDE RECORDS SUMMARY | 2024-02-16 13:31 | XMS_ITS | Encounter Summary ---
Author Organization [facility] Address [address] [place] [address]. [place] [address] [place] [address] Care Team Providers Care Statement Clerks Supervisor Name Role Phone Unavailable Primary Care Provider Unavailabl e Encounter Details Date Type Department Care Team (Late st Contact Info) Description 09/26/2016 Abstract [facility] [address] [place] [address] Issa Austin MD [address] [place] [address] Social History Tobacco Use Types Packs/Day Years Used Date Smoking Tobacco: Never Assessed Comments Unknown Sex and Gender Information Value Date Recorded Sex Assigned at Not on file Legal Sex Female 10:42 PM ABSTRACT WRITER Gender Identity Not on file Sexual [...] - 99 MG/DL 09/27/2016 6:22 AM CDT [facility]FACE Comment:Value Noted, No Eugenie tment Given 09/26/2016 7:25 PM CDT 09/27/2016 6:22 AM CDT us Generic Conversion Md MAY POCT ORDERABLES - DEVIC E Final Result [facility] ORDERS INTERFACE US * POCT glucose (09/26/2016 6:29 PM CDT) [facility] GLUCOSE POC 75 70 - 99 MG/DL 09/26/2016 6:30 PM CDT [facility] ORDERS INTERFACE 09/26/2016 6:29 PM CDT 09/26/2016 6:30 PM CDT us Generic Conversion Md MAY POCT ORDERABLES - DEVIC E Final Result Performing Organization Address [facility] Co de Phone Number [facility] ORDERS INTERFACE US documented in this encounter Visit Diagnoses Diagnosis Type 2 diabetes mellitus with hyperglycemia (CMS/HCC HHS/HCC) Type II or unspecified type diabetes mellitus without mention of complication, not stated as uncontrolled documented in this encounter Additional Health Concerns Infection Onset Date Last Indicated Resolved Time MRSA 03/16/2018 03/16/2018 documented as of this encounter
--- OUTSIDE RECORDS SUMMARY | 2024-02-16 13:31 | XMS_ITS | Encounter Summary ---
Author Organization [facility] Address [address] [place] [address]. [place] [address] [place] [address] Care Team Providers Care Supervisor Telephone Information Name Role Phone Clark Graff DO Primary Care Provider [phone] Reason for Visit * Reason Comments Anxiety Encounter Details Date Type Department Care Team ([facility] st Contact Info) Description 11/25/2023 5:55 PM CDT - 11/25/2023 6:45 PM CDT Emergency [facility] [address] [place] [address] [place] [address] Milagro Plummer MD [address] [place] [address] Anxiety Discharge Disposition: Home or Self Care [...] on file Legal Sex Female 10:42 PM ACCOUNT SERVICE REPRESENTATIVE Gender Identity Not on file Sexual Orientation [...] either your primary care doctor or the [facility]. Please make an appointment for the [...] Care Everywhere. * Anxiety Discharge Instructions, Adult (Nepalese) documented in this encounter Medications at Time [...] if she feels any safety concerns . [INSURANCE EXAMINER] ED Course User Index [INSURANCE EXAMINER] Milagro Plummer MD ED Diagnosis: No diagnosis [...] documented as of this encounter Care Teams Supervisor Telephone Information Relationship Specialty Start Date End Date Clark Graff DO [address] [place] [address] PCP - General FAMILY PRACTICE 01/17/20 documented as of this encounter
--- OUTSIDE RECORDS SUMMARY | 2024-02-16 13:31 | XMS_ITS ---
Author Organization [facility] Address [address] [place] [address] Phone Care Team Providers Care Body Builder Name Role Phone Unavailable Unavailable Unavailable Plan [...] Dates Guarantor Ph one MARCELLA HARRY Self [phone] Clinical Notes Includes: Signed Clinical Notes starting from 03/21/2022 No Clinical Notes Recorded
--- OUTSIDE RECORDS SUMMARY | 2024-02-16 13:31 | XMS_ITS | Encounter Summary ---
Author Organization [facility] Address [address] [place] [address]. [place] [address] [place] [address] Care Team Providers Care Supply Chain Business Analyst Name Role Phone Dajuan Clark BUTLER Primary Care Provider [phone] Encounter Details Date Type Department Care Team (Late st Contact Info) Description 01/26/2021 12:54 PM CARGO VESSEL STEWARDESS - 01/26/2021 1:51 PM CARGO VESSEL STEWARDESS [facility] [place] [address] Discharge Disposition: Home or Self Care (Routine [...] on file Legal Sex Female 10:42 PM CARGO VESSEL STEWARDESS Gender Identity Not on file Sexual Orientation [...] documented as of this encounter Care Teams Supply Chain Business Analyst Relationship Specialty Start Date End Date Clark Graff DO [address] [place] [address] PCP - General FAMILY PRACTICE 01/17/20 documented as of this encounter
--- OUTSIDE RECORDS SUMMARY | 2024-02-16 13:31 | XMS_ITS ---
Care Plan - [facility] Created on: February 16, 2024 PIEROMARCELLA : 1980 Sex: Female Author Organization [facility] Address [address] [place] [address] Phone Care Team Providers Care Order Builder Name Role Phone Unavailable Unavailable Unavailable
--- OUTSIDE RECORDS SUMMARY | 2024-02-16 13:31 | XMS_ITS | Clinical Summary ---
Author Organization [facility] Address [address] [place] [address]. [place] [address] [place] [address] Care Team Providers Care Digital Strategy Manager Name Role Phone Clark Graff DO Primary Care Provider Allergies Active Allergy Reactions Criticality Noted Date [...] CDT - 11/25/2023 6:45 PM CDT Emergency [facility] [address] [address] Milagro Plummer MD Anxiety Discharge Disposition: Home [...] on file Legal Sex Female 10:42 PM SPANISH TUTOR Gender Identity Not on file Sexual Orientation [...] PAPILLOMAVIRUS, HIGH-RISK TYPES Routine 04/02/2022 8:00 AM SPANISH TUTOR from Last 3 Months or Most Recently Relevant to Health Maintenance Results * HUMAN PAPILLOMAVIRUS, HIGH-RISK TYPES (04/02/2022 8:00 AM SPANISH TUTOR) SPEC DESCRIPTION CERVIX 04/04/19 2:54 PM SPANISH TUTOR [facility] HPV DNA HIGH RISK NEGATIVE NEGATIVE 04/04/2022 7:19 PM SPANISH TUTOR [facility] Comment:SEE CYTOLOGY REPORT 04/02/2022 8:00 AM SPANISH TUTOR Marcela Mayo Chrissy PUBLIC POLICY ASSOCIATE PATHOLOGY/CYTOLOGY ORDERA BLES Final Result [facility] [address] [place] [address], from Last 3 Months or Most Recently Relevant to Health Maintenance Additional Health Concerns Infection Onset Date Last Indicated MRSA 03/16/2018 03/16/2018 Insurance IDIAN Care Teams Digital Strategy Manager Relationship Specialty Start Date End Date Clark Graff DO [address] [place] [address] PCP - General FAMILY PRACTICE 01/17/20
--- OUTSIDE RECORDS SUMMARY | 2024-02-16 13:31 | XMS_ITS | Encounter Summary ---
Author Organization [facility] Address [address] [place] [address]. [place] [address] [place] [address] Care Team Providers Care Vamp Maker Name Role Phone Unavailable Primary Care Provider Unavailabl e Encounter Details Date Type Department Care Team (Late st Contact Info) Description 06/26/[address] [facility] [address] [place] [address] Aden Baptiste MD [address] [place] [phone] Social History Tobacco Use Types Packs/Day Years Used Date Smoking Tobacco: Never Assessed Comments Unknown Sex and Gender Information Value Date Recorded Sex Assigned at Not on file Legal Sex Female 10:42 PM ICT SALES REPRESENTATIVE Gender Identity Not on file Sexual Orientation Not on file documented as of this encounter Plan of Treatment Not on file documented as of this encounter Visit Diagnoses Diagnosis Hyperkalemia Hyperpotassemia documented in this encounter Additional Health Concerns Infection Onset Date Last Indicated Resolved Time MRSA 03/16/2018 03/16/2018 documented as of this encounter
--- OUTSIDE RECORDS SUMMARY | 2024-02-16 13:31 | XMS_ITS | Encounter Summary ---
Author Organization [facility] Address [address] [place] [address]. 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 SPECIMEN SOURCE GENITAL 12/20/2015 3:[address] [facility] GENITAL SWAB / Unknown 12/21/2015 8:01 AM CDT us Generic Conversion Md [facility] - GENERAL ORDERABLES Final Result [facility] [place] [address], [id number] documented in this encounter Visit Diagnoses Not on filedocumented in this encounter
--- OUTSIDE RECORDS SUMMARY | 2024-02-16 13:31 | XMS_ITS | Encounter Summary ---
Author Organization [facility] Address [address] [place] [address]. [place] [address] [place] [address] Care Team Providers Care Agricultural Consultant Name Role Phone Unavailable Primary Care Provider Unavailabl e Encounter Details Date Type Department Care Team (Late st Contact Info) Description 04/07/2017 Orders [place] [address] , Generic Conversion, Social History Tobacco Use Types Packs/Day Years Used Date Smoking Tobacco: Never Assessed Comments Unknown Sex and Gender Information Value Date Recorded Sex Assigned at Not on file Legal Sex Female 10:42 PM HAND REAMER Gender Identity Not on file Sexual Orientation [...] TMA NEGATIVE NEGATIVE 12/21/2015 2:42 PM CDT [facility] SPECIMEN GENITAL 12/20/2015 3:49 PM CDT [facility] 12/21/2015 8:0 1 AM CDT us Generic Conversion Md [facility] Final R esult [facility] [place] [address], [id number] documented in this encounter Visit Diagnoses Not on filedocumented in this encounter
--- OUTSIDE RECORDS SUMMARY | 2024-02-16 13:32 | XMS_ITS | Encounter Summary ---
Author Organization [facility] Address [address] [place] [address]. [place] [address] [place] [address] Care Team Providers Care Latex Dipper Name Role Phone Unavailable Primary Care Provider Unavailabl e Encounter Details Date Type Department Care Team (Late st Contact Info) Description 07/24/[address] [facility] [address] [facility] [place] [address] Jony Boles MD [address] [place] [address] Social History Tobacco Use Types Packs/Day Years Used Date Smoking Tobacco: Never Assessed Comments Unknown Sex and Gender Information Value Date Recorded Sex Assigned at Not on file Legal Sex Female 10:42 PM SUPERVISOR EPOXY FABRICATION Gender Identity Not on file Sexual Orientation Not on file documented as of this encounter Plan of Treatment Not on file documented as of this encounter Visit Diagnoses Diagnosis Carbuncle and furuncle of trunk documented in this encounter Additional Health Concerns Infection Onset Date Last Indicated Resolved Time MRSA 03/16/2018 03/16/2018 documented as of this encounter
--- OUTSIDE RECORDS SUMMARY | 2024-02-16 13:32 | XMS_ITS | Encounter Summary ---
Author Organization [facility] Address [address] [place] [address]. [place] [address] [place] [address] Care Team Providers Care Sea Shell Gatherer Name Role Phone Unavailable Primary Care Provider Unavailabl e Encounter Details Date Type Department Care Team (Late st Contact Info) Description 09/06/[address] [facility] [address] [place] [address] Aden Baptiste MD [address] [place] [phone] Social History Tobacco Use Types Packs/Day Years Used Date Smoking Tobacco: Never Assessed Comments Unknown Sex and Gender Information Value Date Recorded Sex Assigned at Not on file Legal Sex Female 10:42 PM WILD LIFE PHOTOGRAPHER Gender Identity Not on file Sexual Orientation Not on file documented as of this encounter Plan of Treatment Not on file documented as of this encounter Visit Diagnoses Diagnosis examination or test, positive result ([facility]) examination or test, positive result documented in this encounter Additional Health Concerns Infection Onset Date Last Indicated Resolved Time MRSA 03/16/2018 03/16/2018 documented as of this encounter
--- OUTSIDE RECORDS SUMMARY | 2024-02-16 13:32 | XMS_ITS | Encounter Summary ---
Author Organization [facility] Address [address] [place] [address]. 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
--- OUTSIDE RECORDS SUMMARY | 2024-02-16 13:32 | XMS_ITS | Encounter Summary ---
Author Organization [facility] Address [address] [place] [address]. 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
--- OUTSIDE RECORDS SUMMARY | 2024-02-16 13:32 | XMS_ITS | Encounter Summary ---
Author Organization [facility] Address [address] [place] [address]. [place] [address] [place] [address] Care Team Providers Care Dietary Aid Name Role Phone Unavailable Primary Care Provider Unavailabl e Encounter Details Date Type Department Care Team (Late st Contact Info) Description 01/05/[address] 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
--- OUTSIDE RECORDS SUMMARY | 2024-02-16 13:32 | XMS_ITS | Encounter Summary ---
Author Organization [facility] Address [address] [place] [address]. [place] [address] [place] [address] Care Team Providers Care Overlock Sleeve Setter Name Role Phone Unavailable Primary Care Provider Unavailabl e Encounter Details Date Type Department Care Team (Late st Contact Info) Description 11/13/2014 Abstract [place] [facility] [address] [facility] [place] [address] Pasquale Agudelo MD [address] [place] [address] Social History Tobacco Use Types Packs/Day Years Used Date Smoking Tobacco: Never Assessed Comments Unknown Sex and Gender Information Value Date Recorded Sex Assigned at Not on file 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
--- OUTSIDE RECORDS SUMMARY | 2024-02-16 13:32 | XMS_ITS | Encounter Summary ---
Author Organization [facility] Address [address] [place] [address]. [place] [address] [place] [address] Care Team Providers Care Spike Machine Heater Name Role Phone Unavailable Primary Care Provider Unavailabl e Encounter Details Date Type Department Care Team (Late st Contact Info) Description 05/03/[address] 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
--- OUTSIDE RECORDS SUMMARY | 2024-02-16 13:32 | XMS_ITS | Encounter Summary ---
Author Organization [facility] Address [address] [place] [address]. 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
--- OUTSIDE RECORDS SUMMARY | 2024-02-16 13:32 | XMS_ITS | Encounter Summary ---
Author Organization [facility] Address [address] [place] [address]. 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
--- OUTSIDE RECORDS SUMMARY | 2024-02-16 13:32 | XMS_ITS | Encounter Summary ---
Author Organization [facility] Address [address] [place] [address]. 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
--- OUTSIDE RECORDS SUMMARY | 2024-02-16 13:32 | XMS_ITS | Encounter Summary ---
Author Organization [facility] Address [address] [place] [address]. 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
--- OUTSIDE RECORDS SUMMARY | 2024-02-16 13:32 | XMS_ITS | Encounter Summary ---
Author Organization [facility] Address [address] [place] [address]. [place] [address] [place] [address] Care Team Providers Care Magnetic Prospecting Supervisor Name Role Phone Unavailable Primary Care Provider Unavailabl e Encounter Details Date Type Department Care Team (Late st Contact Info) Description 07/11/[address] 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
--- OUTSIDE RECORDS SUMMARY | 2024-02-16 13:32 | XMS_ITS | Encounter Summary ---
Author Organization [facility] Address [address] [place] [address]. [place] [address] [place] [address] Care Team Providers Care Braided Rug Maker Name Role Phone Unavailable Primary Care Provider Unavailabl e Encounter Details Date Type Department Care Team (Late st Contact Info) Description 12/20/[address] 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
--- OUTSIDE RECORDS SUMMARY | 2024-02-16 13:32 | XMS_ITS | Encounter Summary ---
Author Organization [facility] Address [address] [place] [address]. [place] [address] [place] [address] Care Team Providers Care Nut Sorter Operator Name Role Phone Unavailable Primary Care Provider Unavailabl e Encounter Details Date Type Department Care Team (Late st Contact Info) Description 07/04/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
--- OUTSIDE RECORDS SUMMARY | 2024-02-16 13:32 | XMS_ITS | Encounter Summary ---
Author Organization [facility] Address [address] [place] [address]. [place] [address] [place] [address] Care Team Providers Care Machine Molder Squeeze Name Role Phone Unavailable Primary Care Provider Unavailabl e Encounter Details Date Type Department Care Team (Late st Contact Info) Description 04/12/[address] [address] [facility] [place] [address] Estevan Harrington MD [address] [place] [phone] Social History Tobacco Use Types Packs/Day Years Used Date Smoking Tobacco: Never Assessed Comments Unknown Sex and Gender Information Value Date Recorded Sex Assigned at Not on file Legal Sex Female 10:[address] EXAMINER Gender Identity Not on file Sexual [...]
--- OUTSIDE RECORDS SUMMARY | 2024-02-16 13:32 | XMS_ITS | Encounter Summary ---
Author Organization [facility] Address [address] [place] [address]. [place] [address] [place] [address] Care Team Providers Care Qa Auditor Name Role Phone Unavailable Primary Care Provider Unavailabl e Encounter Details Date Type Department Care Team (Late st Contact Info) Description 03/24/[address] 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
--- OUTSIDE RECORDS SUMMARY | 2024-02-16 13:32 | XMS_ITS | Encounter Summary ---
Author Organization [facility] Address [address] [place] [address]. 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
--- OUTSIDE RECORDS SUMMARY | 2024-02-16 13:32 | XMS_ITS | Encounter Summary ---
Author Organization [facility] Address [address] [place] [address]. 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
--- OUTSIDE RECORDS SUMMARY | 2024-02-16 13:32 | XMS_ITS | Encounter Summary ---
Author Organization [facility] Address [address] [place] [address]. 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
--- OUTSIDE RECORDS SUMMARY | 2024-02-16 13:32 | XMS_ITS | Encounter Summary ---
Author Organization [facility] Address [address] [place] [address]. 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
--- OUTSIDE RECORDS SUMMARY | 2024-02-16 13:32 | XMS_ITS | Encounter Summary ---
Author Organization [facility] Address [facility]. [place], [place] [address] [place] [address] Care Team Providers Care Software Engineer Sales Name Role Phone Unavailable Primary Care Provider Unavailabl e Encounter Details Date Type Department Care Team (Late st Contact Info) Description 03/13/2015 Abstract [facility] Replaced by [facility], 2nd [place] [phone] Jose Yañez MD Social History Tobacco Use Types Packs/Day Years Used Date Smoking Tobacco: Never Assessed Comments Unknown Sex and Gender Information Value Date Recorded Sex Assigned at Not on file Legal Sex Female 10:42 PM BOW TACKER Gender Identity Not on file Sexual Orientation [...] MG Oral Capsule Delayed Release Particles; Therapy: (Recorded:[id number]) to Recorded Dispense: 0 Days ; #: Sufficient CPEP; Refill: 0; ANDREW = N; Record; Last Updated By: Rodrigo Olguin; 09/04/2014 10:12:22 AM 2. Geodon 60 MG Oral Capsule; Therapy: (Recorded:[id number]) to Recorded Dispense: 0 Days ; #: Sufficient CAPS; Refill: 0; ANDREW = N; Record; Last Updated By: Rodrigo Olguin; 09/04/2014 10:12:22 AM 3. HumaLOG 100 UNIT/ML Subcutaneous Solution; Therapy: (Recorded:[id number]) to Recorded Dispense: 0 Days ; #: Sufficient SOLN; Refill: 0; ANDREW = N; Record; Last Updated By: Rodrigo Olguin; 09/04/2014 10:12:22 AM 4. Lantus SoloStar 100 UNIT/ML SOLN; Therapy: (Recorded:[id number]) to Recorded Dispense: 0 Days ; #: Sufficient SOLN; Refill: 0; ANDERW = N; Record; Last Updated By: Rodrigo Olguin; 09/04/2014 10:12:21 AM 5. Lisinopril 40 MG Oral Tablet; Therapy: (Recorded:[id number]) to Recorded Dispense: 0 Days ; #: Sufficient TABS; Refill: 0; ANDREW = N; Record; Last Updated By: Rodrigo Olguin; 09/04/2014 10:12:22 AM 6. MetFORMIN HCl - 500 MG Oral Tablet; Therapy: (Recorded:[id number]) to Recorded Dispense: 0 Days ; #: Sufficient TABS; Refill: 0; ANDREW = N; Record; Last Updated By: Rodrigo Olguin; 09/04/2014 10:12:22 AM 7. Ritalin 20 MG Oral Tablet; Therapy: (Recorded:[id number]) to Recorded Dispense: 0 Days ; #: Sufficient TABS; Refill: 0; ANDREW = N; Record; Last Updated By: Rodrigo Olguin; 09/04/2014 10:12:22 AM 8. Simvastatin 40 MG Oral Tablet; Therapy: (Recorded:[id number]) to Recorded Dispense: 0 Days ; #: Sufficient TABS; Refill: 0; ANDREW = N; Record; Last Updated By: Rodrigo Olguin; 03/13/2015 2:08:44 PM 9. TraZODone HCl - 100 MG Oral Tablet; Therapy: (Recorded:[id number]) to Recorded Dispense: 0 Days ; #: [...] pain severe and would like to have [place] for pain control. I agreed to give her prescription for 8 pills. She directed to take them if pain severe. Patient verbalized understanding nature of discussions. She would like to follow plan. Signatures Electronically signed by : Jose Yañez M.D.; Mar 13 2015 5:53PM BOW TACKER (Author) documented in this encounter Plan of Treatment Not on file documented as of this encounter Visit Diagnoses Not on filedocumented in this encounter
--- OUTSIDE RECORDS SUMMARY | 2024-02-16 13:32 | XMS_ITS | Encounter Summary ---
Author Organization [facility] Address [address] [place] [address]. [place] [address] [place] [address] Care Team Providers Care Blanking Press Operator Name Role Phone Unavailable Primary Care Provider Unavailabl e Encounter Details Date Type Department Care Team (Late st Contact Info) Description 07/08/[address] 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
--- OUTSIDE RECORDS SUMMARY | 2024-02-16 13:32 | XMS_ITS | Encounter Summary ---
Author Organization [facility] Address [address] [place] [address]. 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
--- OUTSIDE RECORDS SUMMARY | 2024-02-16 13:32 | XMS_ITS | Encounter Summary ---
Author Organization [facility] Address [address] [place] [address]. [place] [address] [place] [address] Care Team Providers Care Yam Curer Name Role Phone Unavailable Primary Care Provider Unavailabl e Encounter Details Date Type Department Care Team (Late st Contact Info) Description 05/12/[address] 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
--- OUTSIDE RECORDS SUMMARY | 2024-02-16 13:32 | XMS_ITS | Encounter Summary ---
Author Organization [facility] Address [address] [place] [address]. 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
--- OUTSIDE RECORDS SUMMARY | 2024-02-16 13:32 | XMS_ITS | Encounter Summary ---
Author Organization [facility] Address [address] [place] [address]. 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
--- OUTSIDE RECORDS SUMMARY | 2024-02-16 13:32 | XMS_ITS | Encounter Summary ---
Author Organization [facility] Address [address] [place] [address]. 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
--- OUTSIDE RECORDS SUMMARY | 2024-02-16 13:32 | XMS_ITS | Encounter Summary ---
Author Organization [facility] Address [address] [place] [address]. [place] [address] [place] [address] Care Team Providers Care Senior Network Administrator Name Role Phone Unavailable Primary Care Provider Unavailabl e Encounter Details Date Type Department Care Team (Late st Contact Info) Description 12/07/[address] 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
--- OUTSIDE RECORDS SUMMARY | 2024-02-16 13:32 | XMS_ITS | Encounter Summary ---
Author Organization [facility] Address [address] [place] [address]. 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
--- OUTSIDE RECORDS SUMMARY | 2024-02-16 13:32 | XMS_ITS | Encounter Summary ---
Author Organization [facility] Address [address] [place] [address]. [place] [address] [place] [address] Care Team Providers Care Grey Roll Man Name Role Phone Unavailable Primary Care Provider Unavailabl e Encounter Details Date Type Department Care Team (Late st Contact Info) Description 01/05/[address] 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
--- OUTSIDE RECORDS SUMMARY | 2024-02-16 13:32 | XMS_ITS | Encounter Summary ---
Author Organization [facility] Address [address] [place] [address]. 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
--- OUTSIDE RECORDS SUMMARY | 2024-02-16 13:32 | XMS_ITS | Encounter Summary ---
Author Organization [facility] Address [address] [place] [address]. 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
--- OUTSIDE RECORDS SUMMARY | 2024-02-16 13:32 | XMS_ITS | Encounter Summary ---
Author Organization [facility] Address [address] [place] [address]. 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 RBC 4.95 4.10 - 5.40 x10'6/uL 12/20/2015 4:[address] [facility] HGB 14.0 12.0 - 16.0 G/DL 12/20/2015 4:[address] [facility] HCT 43.7 36.0 - 47.0 % 12/20/2015 4:[address] [facility] MCV 88.3 78.0 - 100.0 FL 12/20/2015 4:[address] [facility] MCH 28.3 27.0 - 31.0 PG 12/20/2015 4:[address] [facility] MCHC 32.0(L) 33.0 - 36.0 G/DL 12/20/2015 4:[address] [facility] RDW 13.5 11.5 - 14.5 % 12/20/2015 4:[address] [facility] PLT 477(H) 150 - 350 x10'3/uL 12/20/2015 4:[address] [facility] MPV 9.9 7.4 - 10.4 FL 12/20/2015 4:[address] [facility] ABS. NEUTROPHILS TOTAL 10.51(H) 1.60 - 8.30 x10'3/uL 12/20/2015 4:[address] [facility] ABS. LYMPHOCYTES 4.74(H) 0.80 - 4.70 x10'3/uL 12/20/2015 4:[address] [facility] ABS. MONOCYTES 1.03 0.00 - 1.50 x10'3/uL 12/20/2015 4:[address] [facility] ABS. EOSINOPHILS 0.59(H) 0.00 - 0.40 x10'3/uL 12/20/2015 4:[address] [facility] ABS. BASOPHILS 0.09 0.00 - 0.20 x10'3/uL 12/20/2015 4:[address] [facility] ABS. IMMATURE GRANULOCYTES 0.13(H) 0.00 - 0.03 x10'3/uL 12/20/2015 4:[address] [facility] ABS. NUCLEATED RBC'S 0.00 0.0 x10'3/uL 12/20/2015 4:[address] [facility] PLASMA SPECIMEN / Unknown 12/20/2015 10:56 AM CDT 12/20/2015 4:09 PM CDT us Generic Conversion Md [facility] Final R esult [facility] [address] [place] [address], [id number] documented in this encounter Visit Diagnoses Not on filedocumented in this encounter
--- OUTSIDE RECORDS SUMMARY | 2024-02-16 13:32 | XMS_ITS | Encounter Summary ---
Author Organization [facility] Address [address] [place] [address]. 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
--- OUTSIDE RECORDS SUMMARY | 2024-02-16 13:32 | XMS_ITS | Encounter Summary ---
Author Organization [facility] Address [address] [place] [address]. [place] [address] [place] [address] Care Team Providers Care Salesperson Flowers Name Role Phone Unavailable Primary Care Provider Unavailabl e Encounter Details Date Type Department Care Team (Late st Contact Info) Description 07/15/2014 Abstract [place] [facility] [address] [facility] [place] [address] Social History Tobacco Use Types Packs/Day Years Used Date Smoking Tobacco: Never Assessed Comments Unknown Sex and Gender Information Value Date Recorded Sex Assigned at Not on file Legal Sex Female 10:[address]PAIRER Gender Identity Not on file Sexual Orientation Not on file documented as of this encounter Plan of Treatment Not on file documented as of this encounter Visit Diagnoses Diagnosis Unspecified hemorrhoids with other complication documented in this encounter Additional Health Concerns Infection Onset Date Last Indicated Resolved Time MRSA 03/16/2018 03/16/2018 documented as of this encounter
--- OUTSIDE RECORDS SUMMARY | 2024-02-16 13:32 | XMS_ITS | Encounter Summary ---
Author Organization [facility] Address [address] [place] [address]. 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
--- OUTSIDE RECORDS SUMMARY | 2024-02-16 13:32 | XMS_ITS | Encounter Summary ---
Author Organization [facility] Address [address] [place] [address]. 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
--- OUTSIDE RECORDS SUMMARY | 2024-02-16 13:32 | XMS_ITS | Encounter Summary ---
Author Organization [facility] Address [address] [place] [address]. 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
--- OUTSIDE RECORDS SUMMARY | 2024-02-16 13:32 | XMS_ITS | Encounter Summary ---
Author Organization [facility] Address [address] [place] [address]. [place], [place] [address] [place] [address] Care Team Providers Care Showroom Consultant Name Role Phone Unavailable Primary Care Provider Unavailabl e Encounter Details Date Type Department Care Team (Late st Contact Info) Description 09/04/2014 Abstract [facility], 2nd [place] [phone] Jose Yañez MD Social History Tobacco Use Types Packs/Day Years Used Date Smoking Tobacco: Never Assessed Comments Unknown Sex and Gender Information Value Date Recorded Sex Assigned at Not on file Legal Sex Female 10:42 PM MLT Gender Identity Not on file Sexual Orientation [...] Anaprox DS 550 MG Oral Tablet; Therapy: (Recorded:[id number]) to Recorded 2. Cymbalta 60 MG Oral Capsule Delayed Release Particles; Therapy: (Recorded:[id number]) to Recorded 3. Geodon 60 MG Oral Capsule; Therapy: (Recorded:[id number]) to Recorded 4. HumaLOG 100 UNIT/ML Subcutaneous Solution; Therapy: (Recorded:[id number]) to Recorded 5. Lantus SoloStar 100 UNIT/ML SOLN; Therapy: (Recorded:[id number]) to Recorded 6. Lisinopril 40 MG Oral Tablet; Therapy: (Recorded:[id number]) to Recorded 7. MedroxyPROGESTERone Acetate 10 MG Oral Tablet; Therapy: (Recorded:[id number]) to Recorded 8. MetFORMIN HCl - 500 MG Oral Tablet; Therapy: (Recorded:[id number]) to Recorded 9. Ritalin 20 MG Oral Tablet; Therapy: (Recorded:[id number]) to Recorded 10. TraZODone HCl - 100 MG Oral Tablet; Therapy: (Recorded:[id number]) to Recorded Allergies 1. Darvocet-N 50 TABS 2. HumuLIN N SUSP 3. Latex Gloves MISC 4. Penicillins Vitals Recorded: [id number] 02:32PM Systolic 121 Diastolic 78 Height 5 [...] Jose Yañez M.D.; Sep 04 2014 3:57PM MLT (Author) documented in this encounter Plan of Treatment Not on file documented as of this encounter Visit Diagnoses Not on filedocumented in this encounter
--- OUTSIDE RECORDS SUMMARY | 2024-02-16 13:32 | XMS_ITS | Encounter Summary ---
Author Organization [facility] Address [address] [place] [address]. 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
--- OUTSIDE RECORDS SUMMARY | 2024-02-16 13:32 | XMS_ITS | Encounter Summary ---
Author Organization [facility] Address [address] [place] [address]. 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
--- OUTSIDE RECORDS SUMMARY | 2024-02-16 13:33 | XMS_ITS | Encounter Summary ---
Author Organization [facility] Address [address] [place] [address]. 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
--- OUTSIDE RECORDS SUMMARY | 2024-02-16 13:33 | XMS_ITS | Encounter Summary ---
Author Organization [facility] Address [address] [place] [address]. [place] [address] [place] [address] Care Team Providers Care Passenger Service Manager Name Role Phone Unavailable Primary Care Provider Unavailabl e Encounter Details Date Type Department Care Team (Late st Contact Info) Description 03/28/[address] 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
--- OUTSIDE RECORDS SUMMARY | 2024-02-16 13:33 | XMS_ITS | Encounter Summary ---
Author Organization [facility] Address [address] [place] [address]. [place] [address] [place] [address] Care Team Providers Care Analytical Statistician Name Role Phone Unavailable Primary Care Provider Unavailabl e Encounter Details Date Type Department Care Team (Late st Contact Info) Description 06/05/[address] 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
--- OUTSIDE RECORDS SUMMARY | 2024-02-16 13:33 | XMS_ITS | Encounter Summary ---
Author Organization [facility] Address [address] [place] [address]. 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
--- OUTSIDE RECORDS SUMMARY | 2024-02-16 13:33 | XMS_ITS | Encounter Summary ---
Author Organization [facility] Address [address] [place] [address]. [place] [address] [place] [address] Care Team Providers Care Corporate Executive Chef Name Role Phone Unavailable Primary Care Provider Unavailabl e Encounter Details Date Type Department Care Team (Late st Contact Info) Description 05/22/2008 Abstract [facility] [address] [facility] [place] [address] Social History Tobacco Use Types Packs/Day Years Used Date Smoking Tobacco: Never Assessed Comments Unknown Sex and Gender Information Value Date Recorded Sex Assigned at Not on file Legal Sex Female 10:42 PM CERTIFIED CODING SPECIALIST Gender Identity Not on file Sexual Orientation Not on file documented as of this encounter Plan of Treatment Not on file documented as of this encounter Visit Diagnoses Diagnosis Abscess of anal and rectal regions documented in this encounter
--- OUTSIDE RECORDS SUMMARY | 2024-02-16 13:33 | XMS_ITS | Encounter Summary ---
Author Organization [facility] Address [address] [place] [address]. [place] [address] [place] [address] Care Team Providers Care Pension Examiner Name Role Phone Unavailable Primary Care Provider Unavailabl e Encounter Details Date Type Department Care Team (Late st Contact Info) Description 03/03/2009 Abstract 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
--- OUTSIDE RECORDS SUMMARY | 2024-02-16 13:33 | XMS_ITS | Encounter Summary ---
Author Organization [facility] Address [address] [place] [address]. 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
--- OUTSIDE RECORDS SUMMARY | 2024-02-16 13:33 | XMS_ITS | Encounter Summary ---
Author Organization [facility] Address [address] [place] [address]. 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
--- OUTSIDE RECORDS SUMMARY | 2024-02-16 13:33 | XMS_ITS | Encounter Summary ---
Author Organization [facility] Address [address] [place] [address]. [place] [address] [place] [address] Care Team Providers Care Commission Specialist Name Role Phone Unavailable Primary Care Provider Unavailabl e Encounter Details Date Type Department Care Team (Late st Contact Info) Description 05/18/[address] 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
--- OUTSIDE RECORDS SUMMARY | 2024-02-16 13:33 | XMS_ITS | Encounter Summary ---
Author Organization [facility] Address [address] [place] [address]. 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
--- OUTSIDE RECORDS SUMMARY | 2024-02-16 13:33 | XMS_ITS | Encounter Summary ---
Author Organization [facility] Address [address] [place] [address]. [place] [address] [place] [address] Care Team Providers Care Wire Saw Operator Name Role Phone Unavailable Primary Care Provider Unavailabl e Encounter Details Date Type Department Care Team (Late st Contact Info) Description 04/10/[address] [facility] [address] [facility] [place] [address] Aden Baptiste MD [address] [place] [phone] Social History Tobacco Use Types Packs/Day Years Used Date Smoking Tobacco: Never Assessed Comments Unknown Sex and Gender Information Value Date Recorded Sex Assigned at Not on file Legal Sex Female 10:42 PM SPANISH INTERPRETER/TRANSLATOR Gender Identity Not on file Sexual Orientation [...]
--- OUTSIDE RECORDS SUMMARY | 2024-02-16 13:33 | XMS_ITS | Encounter Summary ---
Author Organization [facility] Address [address] [place] [address]. 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
--- OUTSIDE RECORDS SUMMARY | 2024-02-16 13:33 | XMS_ITS | Encounter Summary ---
Author Organization [facility] Address [address] [place] [address]. 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
--- OUTSIDE RECORDS SUMMARY | 2024-02-16 13:33 | XMS_ITS | Encounter Summary ---
Author Organization [facility] Address [address] [place] [address]. 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
--- OUTSIDE RECORDS SUMMARY | 2024-02-16 13:33 | XMS_ITS | Encounter Summary ---
Author Organization [facility] Address [address] [place] [address]. 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
--- OUTSIDE RECORDS SUMMARY | 2024-02-16 13:33 | XMS_ITS | Encounter Summary ---
Author Organization [facility] Address [address] [place] [address]. 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
--- OUTSIDE RECORDS SUMMARY | 2024-02-16 13:33 | XMS_ITS | Encounter Summary ---
Author Organization [facility] Address [address] [place] [address]. [place] [address] [place] [address] Care Team Providers Care Customer Relations Assistant Name Role Phone Unavailable Primary Care Provider Unavailabl e Encounter Details Date Type Department Care Team (Late st Contact Info) Description 11/10/[address] 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
--- OUTSIDE RECORDS SUMMARY | 2024-02-16 13:33 | XMS_ITS | Encounter Summary ---
Author Organization [facility] Address [address] [place] [address]. [place] [address] [place] [address] Care Team Providers Care Box Office Clerk Name Role Phone Unavailable Primary Care Provider Unavailabl e Encounter Details Date Type Department Care Team (Late st Contact Info) Description 04/08/[address] [address] 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
--- OUTSIDE RECORDS SUMMARY | 2024-02-16 13:33 | XMS_ITS | Encounter Summary ---
Author Organization [facility] Address [address] [place] [address]. 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
--- OUTSIDE RECORDS SUMMARY | 2024-02-16 13:33 | XMS_ITS | Encounter Summary ---
Author Organization [facility] Address [address] [place] [address]. [place] [address] [place] [address] Care Team Providers Care Petrologist Name Role Phone Unavailable Primary Care Provider Unavailabl e Encounter Details Date Type Department Care Team (Late st Contact Info) Description 11/08/[address] 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
--- OUTSIDE RECORDS SUMMARY | 2024-02-16 13:33 | XMS_ITS | Encounter Summary ---
Author Organization [facility] Address [address] [place] [address]. [place] [address] [place] [address] Care Team Providers Care Optical Glass Wet Inspector Name Role Phone Unavailable Primary Care Provider Unavailabl e Encounter Details Date Type Department Care Team (Late st Contact Info) Description 05/16/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
--- OUTSIDE RECORDS SUMMARY | 2024-02-16 13:33 | XMS_ITS | Encounter Summary ---
Author Organization [facility] Address [address] [place] [address]. [place] [address] [place] [address] Care Team Providers Care Websphere Commerce Consultant Name Role Phone Unavailable Primary Care Provider Unavailabl e Encounter Details Date Type Department Care Team (Late st Contact Info) Description 09/12/[address] 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
--- OUTSIDE RECORDS SUMMARY | 2024-02-16 13:33 | XMS_ITS | Encounter Summary ---
Author Organization [facility] Address [address] [place] [address]. 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
--- OUTSIDE RECORDS SUMMARY | 2024-02-16 13:33 | XMS_ITS | Encounter Summary ---
Author Organization [facility] Address [address] [place] [address]. [place] [address] [place] [address] Care Team Providers Care Retail Experience Specialist Name Role Phone Unavailable Primary Care Provider Unavailabl e Encounter Details Date Type Department Care Team (Late st Contact Info) Description 08/02/[address] 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
--- OUTSIDE RECORDS SUMMARY | 2024-02-16 13:33 | XMS_ITS | Encounter Summary ---
Author Organization [facility] Address [address] [place] [address]. [place] [address] [place] [address] Care Team Providers Care Sports Activities Foul Judge Name Role Phone Unavailable Primary Care Provider Unavailabl e Encounter Details Date Type Department Care Team (Late st Contact Info) Description 06/07/[address] 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
--- OUTSIDE RECORDS SUMMARY | 2024-02-16 13:33 | XMS_ITS | Encounter Summary ---
Author Organization [facility] Address [address] [place] [address]. [place] [address] [place] [address] Care Team Providers Care Master Planner Name Role Phone Unavailable Primary Care Provider Unavailabl e Encounter Details Date Type Department Care Team (Late st Contact Info) Description 11/19/2006 Abstract [facility] [address] [facility] 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
--- OUTSIDE RECORDS SUMMARY | 2024-02-16 13:33 | XMS_ITS | Encounter Summary ---
Author Organization [facility] Address [address] [place] [address]. 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
--- OUTSIDE RECORDS SUMMARY | 2024-02-16 13:33 | XMS_ITS | Encounter Summary ---
Author Organization [facility] Address [address] [place] [address]. 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
--- OUTSIDE RECORDS SUMMARY | 2024-02-16 13:33 | XMS_ITS | Encounter Summary ---
Author Organization [facility] Address [address] [place] [address]. 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
--- OUTSIDE RECORDS SUMMARY | 2024-02-16 13:33 | XMS_ITS | Encounter Summary ---
Author Organization [facility] Address [address] [place] [address]. 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
--- OUTSIDE RECORDS SUMMARY | 2024-02-16 13:33 | XMS_ITS | Encounter Summary ---
Author Organization [facility] Address [address] [place] [address]. 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
--- OUTSIDE RECORDS SUMMARY | 2024-02-16 13:33 | XMS_ITS | Encounter Summary ---
Author Organization [facility] Address [address] [place] [address]. 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
--- OUTSIDE RECORDS SUMMARY | 2024-02-16 13:33 | XMS_ITS | Encounter Summary ---
Author Organization [facility] Address [address] [place] [address]. 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
--- OUTSIDE RECORDS SUMMARY | 2024-02-16 13:33 | XMS_ITS | Encounter Summary ---
Author Organization [facility] Address [address] [place] [address]. [place] [address] [place] [address] Care Team Providers Care Cyber Security Instructor Name Role Phone Unavailable Primary Care Provider Unavailabl e Encounter Details Date Type Department Care Team (Late st Contact Info) Description 05/10/2010 Abstract [facility] [address] [place] [address] Estevan Harrington MD [address] [place] [address] Social History Tobacco Use Types Packs/Day Years Used Date Smoking Tobacco: Never Assessed Comments Unknown Sex and Gender Information Value Date Recorded Sex Assigned at Not on file Legal Sex Female 10:42 PM PERINATAL COORDINATOR Gender Identity Not on file Sexual [...]
--- OUTSIDE RECORDS SUMMARY | 2024-02-16 13:33 | XMS_ITS | Encounter Summary ---
Author Organization [facility] Address [address] [place] [address]. 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
--- OUTSIDE RECORDS SUMMARY | 2024-02-16 13:33 | XMS_ITS | Encounter Summary ---
Author Organization [facility] Address [address] [place] [address]. [place] [address] [place] [address] Care Team Providers Care Glass Calibrator Name Role Phone Unavailable Primary Care Provider Unavailabl e Encounter Details Date Type Department Care Team (Late st Contact Info) Description 05/16/2009 Abstract [facility] [address] [facility] [place] [address] Aden Avilez MD [address] [place] [address] Social History Tobacco Use Types Packs/Day Years Used Date Smoking Tobacco: Never Assessed Comments Unknown Sex and Gender Information Value Date Recorded Sex Assigned at Not on file Legal Sex Female 10:42 PM SPECIAL LIBRARY LIBRARIAN Gender Identity Not on file Sexual Orientation Not on file documented as of this encounter Plan of Treatment Not on file documented as of this encounter Visit Diagnoses Diagnosis Onychia and paronychia of toe documented in this encounter Additional Health Concerns Infection Onset Date Last Indicated Resolved Time MRSA 03/16/2018 03/16/2018 documented as of this encounter
--- OUTSIDE RECORDS SUMMARY | 2024-02-16 13:33 | XMS_ITS | Encounter Summary ---
Author Organization [facility] Address [address] [place] [address]. 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
--- OUTSIDE RECORDS SUMMARY | 2024-02-16 13:33 | XMS_ITS | Encounter Summary ---
Author Organization [facility] Address [address] [place] [address]. [place] [address] [place] [address] Care Team Providers Care Radiology Practitioner Assistant Name Role Phone Unavailable Primary Care Provider Unavailabl e Encounter Details Date Type Department Care Team (Late st Contact Info) Description 02/05/2000 Abstract [facility] [address] [place] [address] , Generic Conversion, Social History Tobacco Use Types Packs/Day Years Used Date Smoking Tobacco: Never Assessed Comments Unknown Sex and Gender Information Value Date Recorded Sex Assigned at Not on file Legal Sex Female 10:42 PM HEALTH INSURANCE AGENT Gender Identity Not on file Sexual Orientation Not on file documented as of this encounter Plan of Treatment Not on file documented as of this encounter Visit Diagnoses Not on filedocumented in this encounter Additional Health Concerns Infection Onset Date Last Indicated Resolved Time MRSA 03/16/2018 03/16/2018 documented as of this encounter
--- OUTSIDE RECORDS SUMMARY | 2024-02-16 13:33 | XMS_ITS | Encounter Summary ---
Author Organization [facility] Address [address] [place] [address]. 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
--- OUTSIDE RECORDS SUMMARY | 2024-02-16 13:33 | XMS_ITS | Encounter Summary ---
Author Organization [facility] Address [address] [place] [address]. 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
--- OUTSIDE RECORDS SUMMARY | 2024-02-16 13:33 | XMS_ITS | Encounter Summary ---
Author Organization [facility] Address [address] [place] [address]. 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
--- OUTSIDE RECORDS SUMMARY | 2024-02-16 13:33 | XMS_ITS | Encounter Summary ---
Author Organization [facility] Address [address] [place] [address]. 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
--- OUTSIDE RECORDS SUMMARY | 2024-02-16 13:33 | XMS_ITS | Encounter Summary ---
Author Organization [facility] Address [address] [place] [address]. [place] [address] [place] [address] Care Team Providers Care Marketing Analyst Name Role Phone Unavailable Primary Care Provider Unavailabl e Encounter Details Date Type Department Care Team (Late st Contact Info) Description 04/24/[address] [facility] [address] [facility] [place] [address] Aden Baptiste MD [address] [place] [phone] Social History Tobacco Use Types Packs/Day Years Used Date Smoking Tobacco: Never Assessed Comments Unknown Sex and Gender Information Value Date Recorded Sex Assigned at Not on file Legal Sex Female 10:42 PM HORSESHOER Gender Identity Not on file Sexual Orientation Not on file documented as of this encounter Plan of Treatment Not on file documented as of this encounter Visit Diagnoses Diagnosis Other and unspecified ovarian cyst documented in this encounter Additional Health Concerns Infection Onset Date Last Indicated Resolved Time MRSA 03/16/2018 03/16/2018 documented as of this encounter
--- OUTSIDE RECORDS SUMMARY | 2024-02-16 13:33 | XMS_ITS | Encounter Summary ---
Author Organization [facility] Address [address] [place] [address]. 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
--- OUTSIDE RECORDS SUMMARY | 2024-02-16 13:33 | XMS_ITS | Encounter Summary ---
Author Organization [facility] Address [address] [place] [address]. 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
--- OUTSIDE RECORDS SUMMARY | 2024-02-16 13:33 | XMS_ITS | Encounter Summary ---
Author Organization [facility] Address [address] [place] [address]. [place] [address] [place] [address] Care Team Providers Care Manufacturing Maintenance Mechanic Name Role Phone Unavailable Primary Care Provider Unavailabl e Encounter Details Date Type Department Care Team (Late st Contact Info) Description 09/11/[address] 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
--- OUTSIDE RECORDS SUMMARY | 2024-02-16 13:33 | XMS_ITS | Encounter Summary ---
Author Organization [facility] Address [address] [place] [address]. [place] [address] [place] [address] Care Team Providers Care Tower Attendant Name Role Phone Unavailable Primary Care Provider Unavailabl e Encounter Details Date Type Department Care Team (Late st Contact Info) Description 07/08/2000 Abstract SFL CONVERSION [address] [address] , Generic Conversion, Social History Tobacco Use Types Packs/Day Years Used Date Smoking Tobacco: Never Assessed Comments Unknown Sex and Gender Information Value Date Recorded Sex Assigned at Not on file Legal Sex Female 10:42 PM LEASING REPRESENTATIVE Gender Identity Not on file Sexual Orientation Not on file documented as of this encounter Plan of Treatment Not on file documented as of this encounter Visit Diagnoses Not on filedocumented in this encounter Additional Health Concerns Infection Onset Date Last Indicated Resolved Time MRSA 03/16/2018 03/16/2018 documented as of this encounter
--- OUTSIDE RECORDS SUMMARY | 2024-02-16 13:34 | XMS_ITS | Encounter Summary ---
Author Organization [facility] Address [address] [place] [address]. 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
--- OUTSIDE RECORDS SUMMARY | 2024-02-16 13:34 | XMS_ITS | Encounter Summary ---
Author Organization [facility] Address [address] [place] [address]. [place] [address] [place] [address] Care Team Providers Care Supervisor Porcelain Department Name Role Phone Unavailable Primary Care Provider Unavailabl e Encounter Details Date Type Department Care Team (Late st Contact Info) Description 06/28/1997 Abstract SFL CONVERSION [address] [place] [address] , Generic Conversion, Social History Tobacco Use Types Packs/Day Years Used Date Smoking Tobacco: Never Assessed Comments Unknown Sex and Gender Information Value Date Recorded Sex Assigned at Not on file Legal Sex Female 10:42 PM MICROFABRICATION ENGINEER MANAGER Gender Identity Not on file Sexual Orientation Not on file documented as of this encounter Plan of Treatment Not on file documented as of this encounter Visit Diagnoses Not on filedocumented in this encounter Additional Health Concerns Infection Onset Date Last Indicated Resolved Time MRSA 03/16/2018 03/16/2018 documented as of this encounter
--- OUTSIDE RECORDS SUMMARY | 2024-02-16 13:34 | XMS_ITS | Encounter Summary ---
Author Organization [facility] Address [address] [place] [address]. [place] [address] [place] [address] Care Team Providers Care Engineer Internship Name Role Phone Unavailable Primary Care Provider Unavailabl e Encounter Details Date Type Department Care Team (Late st Contact Info) Description 05/28/1997 Abstract SFL CONVERSION [address] [place] [address] , Generic Conversion, Social History Tobacco Use Types Packs/Day Years Used Date Smoking Tobacco: Never Assessed Comments Unknown Sex and Gender Information Value Date Recorded Sex Assigned at Not on file Legal Sex Female 10:[address] LANDSCAPE ARCHITECT Gender Identity Not on file Sexual Orientation Not on file documented as of this encounter Plan of Treatment Not on file documented as of this encounter Visit Diagnoses Not on filedocumented in this encounter Additional Health Concerns Infection Onset Date Last Indicated Resolved Time MRSA 03/16/2018 03/16/2018 documented as of this encounter
--- OUTSIDE RECORDS SUMMARY | 2024-02-16 13:34 | XMS_ITS | Encounter Summary ---
Author Organization [facility] Address [address] [place] [address]. 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
--- OUTSIDE RECORDS SUMMARY | 2024-02-16 13:34 | XMS_ITS | Encounter Summary ---
Author Organization [facility] Address [address] [place] [address]. 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
--- OUTSIDE RECORDS SUMMARY | 2024-02-16 13:34 | XMS_ITS | Encounter Summary ---
Author Organization [facility] Address [address] [place] [address]. 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
--- OUTSIDE RECORDS SUMMARY | 2024-02-16 13:34 | XMS_ITS | Encounter Summary ---
Author Organization [facility] Address [address] [place] [address]. 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
--- OUTSIDE RECORDS SUMMARY | 2024-02-16 13:34 | XMS_ITS | Encounter Summary ---
Author Organization [facility] Address [address] [place] [address]. 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
--- OUTSIDE RECORDS SUMMARY | 2024-02-16 13:34 | XMS_ITS | Encounter Summary ---
Author Organization [facility] Address [address] [place] [address]. [place] [address] [place] [address] Care Team Providers Care Cable Way Operator Name Role Phone Unavailable Primary Care Provider Unavailabl e Encounter Details Date Type Department Care Team (Late st Contact Info) Description 06/10/1997 Abstract SFL CONVERSION [address] [place] [address] , Generic Conversion, Social History Tobacco Use Types Packs/Day Years Used Date Smoking Tobacco: Never Assessed Comments Unknown Sex and Gender Information Value Date Recorded Sex Assigned at Not on file Legal Sex Female 10:42 PM COUNTER PERSON Gender Identity Not on file Sexual Orientation Not on file documented as of this encounter Plan of Treatment Not on file documented as of this encounter Visit Diagnoses Not on filedocumented in this encounter Additional Health Concerns Infection Onset Date Last Indicated Resolved Time MRSA 03/16/2018 03/16/2018 documented as of this encounter
--- OUTSIDE RECORDS SUMMARY | 2024-02-16 13:34 | XMS_ITS | Encounter Summary ---
Author Organization [facility] Address [address] [place] [address]. 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
--- OUTSIDE RECORDS SUMMARY | 2024-02-16 13:34 | XMS_ITS | Encounter Summary ---
Author Organization [facility] Address [address] [place] [address]. [place] [address] [place] [address] Care Team Providers Care Ultimate Hoops Scoreboard Operator Name Role Phone Unavailable Primary Care Provider Unavailabl e Encounter Details Date Type Department Care Team (Late st Contact Info) Description 03/25/1994 Abstract SFL CONVERSION [address] [place] [address] , Generic Conversion, Social History Tobacco Use Types Packs/Day Years Used Date Smoking Tobacco: Never Assessed Comments Unknown Sex and Gender Information Value Date Recorded Sex Assigned at Not on file Legal Sex Female 10:42 PM SIDE PANEL HANGER Gender Identity Not on file Sexual Orientation Not on file documented as of this encounter Plan of Treatment Not on file documented as of this encounter Visit Diagnoses Not on filedocumented in this encounter Additional Health Concerns Infection Onset Date Last Indicated Resolved Time MRSA 03/16/2018 03/16/2018 documented as of this encounter
--- OUTSIDE RECORDS SUMMARY | 2024-02-16 13:34 | XMS_ITS | Encounter Summary ---
Author Organization [facility] Address [address] [place] [address]. [place] [address] [place] [address] Care Team Providers Care Talent Acquisition Operations Manager Name Role Phone Unavailable Primary Care Provider Unavailabl e Encounter Details Date Type Department Care Team (Late st Contact Info) Description 03/10/1997 Abstract SFL CONVERSION [address] [place] [address] , Generic Conversion, Social History Tobacco Use Types Packs/Day Years Used Date Smoking Tobacco: Never Assessed Comments Unknown Sex and Gender Information Value Date Recorded Sex Assigned at Not on file Legal Sex Female 10:42 PM CLINIC CHARGE NURSE Gender Identity Not on file Sexual Orientation Not on file documented as of this encounter Plan of Treatment Not on file documented as of this encounter Visit Diagnoses Not on filedocumented in this encounter Additional Health Concerns Infection Onset Date Last Indicated Resolved Time MRSA 03/16/2018 03/16/2018 documented as of this encounter
--- OUTSIDE RECORDS SUMMARY | 2024-02-16 13:34 | XMS_ITS | Encounter Summary ---
Author Organization [facility] Address [address] [place] [address]. 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
--- OUTSIDE RECORDS SUMMARY | 2024-02-16 13:34 | XMS_ITS | Encounter Summary ---
Author Organization [facility] Address [address] [place] [address]. 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
== END 2024-02-13 11:00 | disposition home or self-care (01) ==
PROVIDERS: Family Medicine; Emergency Provider Internal Medicine Critical Care Medicine; PCP Family Medicine
DX: F15.10 Other stimulant abuse, uncomplicated (principal); E87.8 Other disorders of electrolyte and fluid balance, not elsewhere classified; I10 Essential (primary) hypertension; E11.9 Type 2 diabetes mellitus without complications; F17.210 Nicotine dependence, cigarettes, uncomplicated
CPT/HCPCS: 36415; 80053; 80143; 80179; 80184; 80307; 81001; 82077; 82140; 83735; 84100; 84443; 85025; 93005; 96361; 96365; 96366; 96372; 99284; A9270; J1630; J2060; J3475; J7030

== ENCOUNTER 2024-04-03 14:57 | Emergency (ER) | payer OTHER, SELFPAY ==
[2024-04-03 14:59] VITALS: BP 165/136; PULSE 61; RESP 22; TEMP 36.6; O2SAT 92
--- OUTSIDE RECORDS SUMMARY | 2024-04-03 14:59 | XMS_ITS ---
Author Organization [facility] Address [address] [place] [address] Phone Care Team Providers Care Bologna Maker Name Role Phone Unavailable Unavailable Unavailable Plan of Treatment No Plan of Treatment Recorded Assessments Includes: Assessments for all patient encounters No Assessments Recorded Medical Equipment - Implanted Devices Includes: Current and historical Devices No Medical Equipment Recorded Medications Administered Includes: Administered Medications in patient's chart No Administered Medications Recorded Results Includes: Results from 04/03/2023 through 04/03/2024 No Results Recorded For Specified Dates History [...] Dates Guarantor Ph one MARCELLA HARRY Self [phone] Clinical Notes Includes: Signed Clinical Notes starting from 03/21/2022 No Clinical Notes Recorded
--- OUTSIDE RECORDS SUMMARY | 2024-04-03 14:59 | XMS_ITS ---
Care Plan - [facility] Created on: April 03, 2024 KEDARCarenMARCELLA : 1980 Sex: Female Author Organization [facility] Address [address] [place] [address] Phone Care Team Providers Care Veterinary Microbiologist Name Role Phone Unavailable Unavailable Unavailable
--- NOTE | 2024-04-03 15:00 | ED_ITS ---
HPI - Anxiety General Chief Complaint: Anxiety Stated Complaint: anxiety Time Seen by Provider: 04/03/24 14:58 Source: patient Mode of arrival: ambulatory Limitations: no limitations History of Present Illness HPI narrative: Patient is a 44-year-old female with panic attack and drug use. Patient is known to use meth. Patient has been to the ER many times for panic attacks. MD complaint: anxiety Onset (ago): day(s) (1) Symptoms: sense of impending doom Severity: moderate Quality: constant Place: home History of similar episodes: Yes Provoking factors: emotional stress and other ( This happens when the patient runs out of her meth as a typical presentation) Relieving factors: nothing Exacerbating factors: nothing Associated symptoms: denies other symptoms Related Data Home Medications ?Medication ?Instructions ?Recorded ?Confirmed ?Last Taken ?Type ziprasidone HCl 60 mg capsule 120 mg PO BID 02/12/24 02/12/24 02/11/24 History (Toño) Allergies Allergy/AdvReac Type Severity Reaction Status Date / Time fluconazole Allergy Severe Vomiting, Verified 04/03/24 15:35 DIZZINESS, DIARRHEA latex Allergy Intermediate Unknown Verified 04/03/24 15:35 Penicillins Allergy Intermediate Unknown Verified 04/03/24 15:35 propoxyphene (Darvocet-N 100) Allergy Intermediate Unknown Verified 04/03/24 15:35 Review of Systems Review of Systems: All systems reviewed & are unremarkable except as noted in HPI and below Constitutional: Constitutional: Reports no additional constitutional complaints Eyes: Eyes: Reports no additional eye complaints ENT: Reports system reviewed and no additional complaints, except as d ocumented Cardiovascular: Cardiovascular: Reports no additional cardiovascular complaints Respiratory: Respiratory: Reports no additional respiratory complaints Gastrointestinal: Gastrointestinal: Reports no additional gastrointestinal co mplaints Genitourinary: Genitourinary: Reports no additional female genitourinary complaints Musculoskeletal: Musculoskeletal: Reports no additional musculoskeletal complaints Integumentary/Breasts: Skin/Breast: Reports system reviewed and no additional complaints, except as docu Neurologic: Reports system reviewed and no additional complaints, except as documented Psychiatric: Psychiatric: Reports no additional psychiatric complaints Endocrine: Endocrine: Reports no additional endocrine complaints Hematologic/Lymphatic: Hematologic/Lymphatic: Reports no additional hematologic/lymphatic complaints Allergic/Immunologic: Allergic/Immunologic: Reports no additional allergic/immunologic complaints [facility] Past Medical History Medical History Abdominal pain Obesity Diabetic peripheral neuropathy Schizophrenia Nicotine dependence Methamphetamine abuse Hypertension associated with diabetes Hyperlipidemia associated with type 2 diabetes mellitus Tobacco dependence ADHD Depression RAJ (generalized anxiety disorder) Vitamin D deficiency Type 2 diabetes mellitus Bipolar disorder Surgical History Surgical History Status post open reduction with internal fixation of fracture (~2002) Right ankle fracture with subsequent removal hardware 4 years later History of bilateral tubal ligation (~2009) Hx of tonsillectomy (~1994) Family History Family History Mother Ovarian cancer Diabetes mellitus Multiple sclerosis Grandparent Ovarian cancer Father Heart disease Leukemia Social History Social History Social History: She has smoked as much as 2 packs of cigarettes per day. She started smoking when she was 18. She is down to 1 pack of cigarettes per day. She does not drink any alcohol. She smokes marijuana daily. She has smoked and snorted methamphetamines for the last 7 years. She denies any other illicit substance use. She lives with her significant other. She has 9 cats and 3 dogs at home. She has a pit bull, husky and hound dog. Smoking packs per day: 1.5 Smoking cigarettes per day: 30.0 Years smoked: 23 Smoking pack-years: 34.50 Smoking status: Current every day smoker Tobacco type: cigarettes Additional smoking assessment comments: Patient stated she use to smoke 2 packs a day Alcohol intake: never Substance use: current Substance use type: methamphetamine Last use: 10/06/2021 marijuana, meth 10/10/2022 Lack of Transportation: YES Lack of Food: Sometimes True Current Housing: I Have Housing Concerned About Future Housing: Decline to Answer Difficulty Paying Gas/Electric Bills: YES Difficulty Paying for Meds: No Currently Unemployed: No Education: High School Diploma/GED Difficulty w/ Childcare or Family Care: No Additional living arrangements comments: Lives with her significant other. Additional occupation/education comments: On disability. Spiritual care concerns: No Exam Const: General: healthy appearing Nutritional Appearance: well nourished Orientation/consciousness: patient oriented x3 Limitations: no limitations HENMT: Head: normal to inspection Ears: external ears normal Face/Nose/Sinus: Normal external nose present Eyes: Conjunctivae: conjunctivae normal Pupils: Equal, round and reactive pupils present EOM: EOMs intact bilaterally Neck: Neck: normal visual inspection Chest: Chest palpation & inspection: normal inspection of the chest Resp: Effort & Inspection: normal respiratory effort and not labored Auscultation: clear to auscultation bilaterally and no crackles Cardio: Rate: regular rate Rhythm: regular rhythm Heart sounds: no murmurs GI: Inspection: non-distended GI Palp: Yes Soft to palpation and No Tenderness to palpation present (GI) Auscultation: normal bowel sounds : General: Yes bladder normal to palpation Back/Spine/Pelvis: Back: no CVA tenderness Skin: General skin exam: normal color Rashes: no rashes Wounds: no wounds Neuro: General: patient oriented x3 Cranial nerves: Yes Nystagmus not present Speech: normal speech Gait exam (Neuro): Normal gait present Extrem: General: normal to inspection Psych: Mental Status: mental status grossly normal Affect: Anxious affect present Attitude: cooperative Other: no suicide or homicide ideation Course Vital Signs Vital signs: Vital Signs Temperature 36.6 C 04/03/24 14:59 Pulse Rate 61 04/03/24 14:59 Respiratory Rate 22 H 04/03/24 14:59 Blood Pressure 165/136 H 04/03/24 14:59 Pulse Oximetry 92 04/03/24 14:59 Oxygen Delivery Room Air 04/03/24 14:59 Temperature 36.6 C 04/03/24 14:59 Pulse Rate 61 04/03/24 14:59 Respiratory Rate 22 H 04/03/24 14:59 Blood Pressure 165/136 H 04/03/24 14:59 Pulse Oximetry 92 04/03/24 14:59 Oxygen Delivery Room Air 04/03/24 14:59 MDM - Anxiety MDM Narrative Medical decision making narrative: patient is a 44-year-old female known to the emergency room for recurrent anxiety attacks. We will give the patient some Ativan IM at this time. There was no insects in her ears. Discharge Plan Discharge Clinical Impression: Panic attack Patient Disposition: Home, Self-Care Condition: Stable Instructions: Anxiety (ED) Patient Language: Canadian Prescriptions: No Action ziprasidone HCl [Geodon] 60 mg capsule 120 mg PO BID Rx Instructions: give with food (meal/snack) (DME) OneTouch Ultra Test Strip See Rx Instructions .ROUTE .COMPLEX Qty: 360 5RF Dose Instruction: TESTING 4 TIMES A DAY Rx Instructions: TESTING 4 TIMES A DAY (DME) lancets [TRUEplus Lancets] 33 gauge misc See Rx Instructions .ROUTE .COMPLEX Qty: 100 5RF Dose Instruction: DIRECTED. TESTING 4 TIMES A DAY DX:E11.9 Rx Instructions: DIRECTED. TESTING 4 TIMES A DAY DX:E11.9 dapagliflozin propanediol [Farxiga] 10 mg tablet See Rx Instructions .ROUTE .COMPLEX Qty: 90 3RF Dose Instruction: TAKE ONE TABLET BY MOUTH DAILY Rx Instructions: TAKE ONE TABLET BY MOUTH DAILY ([facility]) blood-glucose meter [Blood Glucose Monitoring] Kit See Rx Instructions .Route Qty: 1 0RF Rx Instructions: As directed ([facility]) pen needle, diabetic [TRUEplus Pen Needle] 29 gauge x 1/2 needle See Rx Instructions .ROUTE .COMPLEX Qty: 100 5RF Dose Instruction: USING 3 TIMES A DAY Rx Instructions: USING 3 TIMES A DAY miconazole nitrate 200 mg suppository 200 mg vaginal QHS 3 Days Qty: 3 1RF nicotine 21 mg/24 hr patch 24 hour 1 patch transdermal DAILY Qty: 28 0RF Rx Instructions: STEP 1 duloxetine 60 mg capsule,delayed release(DR/EC) See Rx Instructions .ROUTE .COMPLEX Qty: 180 3RF Dose Instruction: TAKE TWO CAPSULES BY MOUTH EVERY MORNING Rx Instructions: TAKE TWO CAPSULES BY MOUTH EVERY MORNING metformin 1,000 mg tablet See Rx Instructions .ROUTE .COMPLEX Qty: 180 3RF Dose Instruction: TAKE ONE TABLET BY MOUTH TWICE A DAY Rx Instructions: TAKE ONE TABLET BY MOUTH TWICE A DAY gabapentin 100 mg capsule See Rx Instructions .ROUTE .COMPLEX Qty: 180 0RF Dose Instruction: TAKE ONE CAPSULE BY MOUTH EVERY MORNING AND TAKE TWO CAPSULES BY MOUTH EVERY EVENING Rx Instructions: TAKE ONE CAPSULE BY MOUTH EVERY MORNING AND TAKE TWO CAPSULES BY MOUTH EVERY EVENING simvastatin 40 mg tablet See Rx Instructions .ROUTE .COMPLEX Qty: 90 0RF Dose Instruction: TAKE ONE TABLET BY MOUTH DAILY Rx Instructions: TAKE ONE TABLET BY MOUTH DAILY ziprasidone HCl 60 mg capsule See Rx Instructions .ROUTE .COMPLEX Qty: 180 0RF Dose Instruction: TAKE ONE TABLET BY MOUTH IN THE MORNING AND 2 IN THE EVENING Rx Instructions: TAKE ONE TABLET BY MOUTH IN THE MORNING AND 2 IN THE EVENING atenolol 50 mg tablet See Rx Instructions .ROUTE .COMPLEX Qty: 90 3RF Dose Instruction: TAKE ONE TABLET BY MOUTH DAILY Rx Instructions: TAKE ONE TABLET BY MOUTH DAILY trazodone 100 mg tablet See Rx Instructions .ROUTE .COMPLEX Qty: 60 0RF Dose Instruction: TAKE TWO TABLETS BY MOUTH BEDTIME Rx Instructions: TAKE TWO TABLETS BY MOUTH BEDTIME Trulicity 1.5 mg/0.5 mL pen injector 1.5 mg subcut WEEKLY Qty: 2 1RF alprazolam [Xanax] 1 mg tablet 1 mg PO BID PRN (Reason: anxiety) Qty: 20 0RF Follow-up/Referrals: Clark Graff DO [Primary Care Provider] - Time of Disposition: 15:59
[2024-04-03] MEDS: LORazepam INJ (*CRX) 2 MG/ML VIAL 1 MG IM (15:03)
--- OUTSIDE RECORDS SUMMARY | 2024-04-03 15:32 | XMS_ITS | Clinical Summary ---
Author Organization [facility] Address [address] [place] [address]. [place] [address] [place] [address] Care Team Providers Care Faucet Polisher Name Role Phone Clark Graff DO Primary Care Provider [phone] Allergies Active Allergy Reactions Criticality Noted Date [...] needed for Anxiety. 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 Gender Identity Not on file Sexual [...] series) 2001 Mammogram Screening 2022 COVID-19 Vaccine ( - 2023-2 5 season) 2023 Influenza Adult (#1) 2023 Cervical Cancer Screening Pa p with HPV Testing (Age 30 to 64) Every 5 Years 04/02/2027 04/02/2022 Cervical Cancer Screening with HPV 04/02/2027 HPV Vaccines Aged Out No longer eligi ble based on patient's age to complete this topic Meningococcal B Vaccine Aged Out No l onger eligible based on patient's age to complete this topic Meningococcal Vaccine Aged Out No an fouzia eligible based on patient's age to complete this topic RSV Immunizations Under 20 Months Aged Out No longer eligible based on patient's age to complete this topic Procedures Procedure Name Priority Date/Time Associated Diagnosis Comments HUMAN PAPILLOMAVIRUS, HIGH-RISK TYPES Routine 04/02/2022 8:00 AM OPERATIONS AGENT from Last 3 Months or Most Recently Relevant to Health Maintenance Results * HUMAN PAPILLOMAVIRUS, HIGH-RISK TYPES (04/02/2022 8:00 AM OPERATIONS AGENT) SPEC DESCRIPTION CERVIX 04/04/19 2:54 PM OPERATIONS AGENT [facility] HPV DNA HIGH RISK NEGATIVE NEGATIVE 04/04/2022 7:19 PM OPERATIONS AGENT [facility] Comment:SEE CYTOLOGY REPORT 04/02/2022 8:00 AM OPERATIONS AGENT Marcela Lowe SUPPLY CHAIN MANAGER PATHOLOGY/CYTOLOGY ORDERA BLES Final Result [facility] [address] [place] [address], from Last 3 Months or Most Recently Relevant to Health Maintenance Additional Health Concerns Infection Onset Date Last Indicated MRSA 03/16/2018 03/16/[address] [place] [address] Care Teams Faucet Polisher Relationship Specialty Start Date End Date Clark Graff DO [address] [place] [address] PCP - General FAMILY PRACTICE 01/17/20
--- OUTSIDE RECORDS SUMMARY | 2024-04-03 15:32 | XMS_ITS ---
Care Plan - [facility] Created on: April 03, 2024 KEDARCarenMARCELLA : 1980 Sex: Female Author Organization [facility] Address [address] [place] [address] Phone Care Team Providers Care Hydraulic Miner Blasting Name Role Phone Unavailable Unavailable Unavailable
--- OUTSIDE RECORDS SUMMARY | 2024-04-03 15:32 | XMS_ITS ---
Author Organization [facility] Address [address] [place] [address] Phone Care Team Providers Care Singeing Torch Operator Name Role Phone Unavailable Unavailable Unavailable Plan [...] Dates Guarantor Ph one MARCELLA HARRY Self [phone] Clinical Notes Includes: Signed Clinical Notes starting from 03/21/2022 No Clinical Notes Recorded
--- OUTSIDE RECORDS SUMMARY | 2024-04-03 15:32 | XMS_ITS | Encounter Summary ---
Author Organization [facility] Address [address] [place] [address]. 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
[2024-04-03 16:06] VITALS: BP 145/89; PULSE 66; RESP 20; TEMP 36.7; O2SAT 94
== END 2024-04-03 16:06 | disposition home or self-care (01) ==
PROVIDERS: Emergency Provider Emergency Medicine; PCP Family Medicine
DX: F41.0 Panic disorder [episodic paroxysmal anxiety] (principal); E11.9 Type 2 diabetes mellitus without complications; I10 Essential (primary) hypertension; F17.210 Nicotine dependence, cigarettes, uncomplicated
CPT/HCPCS: 96372; 99283; J2060

== ENCOUNTER 2024-04-05 16:52 | Emergency (ER) | payer OTHER, SELFPAY ==
--- OUTSIDE RECORDS SUMMARY | 2024-04-05 16:55 | XMS_ITS | Clinical Summary ---
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 Gender Identity Not on file Sexual [...] PAPILLOMAVIRUS, HIGH-RISK TYPES Routine 04/02/2022 8:00 AM DRILLING FIELD OPERATOR from Last 3 Months or Most Recently Relevant to Health Maintenance Results * HUMAN PAPILLOMAVIRUS, HIGH-RISK TYPES (04/02/2022 8:00 AM DRILLING FIELD OPERATOR) SPEC DESCRIPTION CERVIX 04/04/19 2:54 PM DRILLING FIELD OPERATOR [facility] HPV DNA HIGH RISK NEGATIVE NEGATIVE 04/04/2022 7:19 PM DRILLING FIELD OPERATOR [facility] Comment:SEE CYTOLOGY REPORT 04/02/2022 8:00 AM DRILLING FIELD OPERATOR Marcela Lowe PUBLIC HEALTH INSPECTOR PATHOLOGY/CYTOLOGY ORDERA BLES Final Result [facility] [address] [place] [address], from Last 3 Months or Most Recently Relevant to Health Maintenance Additional Health Concerns Infection Onset Date Last Indicated MRSA 03/16/2018 03/16/2018 Insurance [employer] Care Teams Proc Tech Relationship Specialty Start Date End Date Clark Graff DO [address] [place] [address] PCP - General FAMILY PRACTICE 01/17/20
--- OUTSIDE RECORDS SUMMARY | 2024-04-05 16:55 | XMS_ITS ---
Care Plan - [facility] Created on: April 05, 2024 KEDARCarenMARCELLA : 1980 Sex: Female Author Organization [facility] Address [address] [place] [address] Phone Care Team Providers Care Brand Marketing Specialist Name Role Phone Unavailable Unavailable Unavailable
--- OUTSIDE RECORDS SUMMARY | 2024-04-05 16:55 | XMS_ITS | Encounter Summary ---
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
--- OUTSIDE RECORDS SUMMARY | 2024-04-05 16:55 | XMS_ITS ---
Author Organization [facility] Address [address] [place] [address] Phone Care Team Providers Care Cardiac Sonographer Name Role Phone Unavailable Unavailable Unavailable Plan of Treatment No Plan of Treatment Recorded Assessments Includes: Assessments for all patient encounters No Assessments Recorded Medical Equipment - Implanted Devices Includes: Current and historical Devices No Medical Equipment Recorded Medications Administered Includes: Administered Medications in patient's chart No Administered Medications Recorded Results Includes: Results from 04/05/2023 through 04/05/2024 No Results Recorded For Specified Dates History [...] Dates Guarantor Ph one MARCELLA HARRY Self [phone] Clinical Notes Includes: Signed Clinical Notes starting from 03/21/2022 No Clinical Notes Recorded
[2024-04-05 16:58] VITALS: BP 122/91; PULSE 95; RESP 18; TEMP 36.6; O2SAT 97
--- NOTE | 2024-04-05 17:12 | ED_ITS ---
HPI - Psych General Chief Complaint: Psychiatric Symptoms Stated Complaint: psych Time Seen by Provider: 04/05/24 16:57 Source: patient and EMS Mode of arrival: EMS Limitations: no limitations History of Present Illness HPI Narrative: patient is a 44-year-old female known to the emergency room for recurrent anxiety issues. She has many other psychiatry issues as well. She is not suicidal or homicidal at this time. She said she never was suicidal when she called for help. She was just anxious and wanted to be seen. MD complaint: feels depressed Onset (ago): day(s) (3) Duration: constant History of same: Yes Relieving factors: medication Exacerbating factors: drug use ( Methamphetamine; she is not been using in the last few days) Context: recent drug abuse ( last week) Associated psychiatric symptoms: depression and racing thoughts ( anxiety) Associated symptoms: denies other symptoms Treatments prior to arrival: none If self harm: other ( nonsuicidal) Related Data Home Medications ?Medication ?Instructions ?Recorded ?Confirmed ?Last Taken ?Type ziprasidone HCl 60 mg capsule 120 mg PO BID 02/12/24 02/12/24 02/11/24 History (Toño) Allergies Allergy/AdvReac Type Severity Reaction Status Date / Time fluconazole Allergy Severe Vomiting, Verified 04/05/24 17:17 DIZZINESS, DIARRHEA latex Allergy Intermediate Unknown Verified 04/05/24 17:17 Penicillins Allergy Intermediate Unknown Verified 04/05/24 17:17 propoxyphene (Darvocet-N 100) Allergy Intermediate Unknown Verified 04/05/24 17:17 Review of Systems Review of Systems: All systems reviewed & are unremarkable except as noted in HPI and below Constitutional: Constitutional: Reports no additional constitutional complaints Eyes: Eyes: Reports no additional eye complaints ENT: Reports system reviewed and no additional complaints, except as documented Cardiovascular: Cardiovascular: Reports no additional cardiovascular complaints Respiratory: Respiratory: Reports no additional respiratory complaints Gastrointestinal: Gastrointestinal: Reports no additional gastrointestinal complaints Genitourinary: Genitourinary: Reports no additional female genitourinary complaints Musculoskeletal: Musculoskeletal: Reports no additional musculoskeletal complaints Integumentary/Breasts: Skin/Breast: Reports system reviewed and no additional complaints, except as docu Neurologic: Reports system reviewed and no additional complaints, except as documented Psychiatric: Psychiatric: Reports no additional psychiatric complaints Endocrine: Endocrine: Reports no additional endocrine complaints Hematologic/Lymphatic: Hematologic/Lymphatic: Reports no additional hematologic/lymphatic complaints Allergic/Immunologic: Allergic/Immunologic: Reports no additional allergic/immunologic complaints PMFSH Past Medical History Medical History Abdominal pain Obesity Diabetic peripheral neuropathy Schizophrenia Nicotine dependence Methamphetamine abuse Hypertension associated with diabetes Hyperlipidemia associated with type 2 diabetes mellitus Tobacco dependence ADHD Depression RAJ (generalized anxiety disorder) Vitamin D deficiency Type 2 diabetes mellitus Bipolar disorder Surgical History Surgical History Status post open reduction with internal fixation of fracture (~2002) Right ankle fracture with subsequent removal hardware 4 years later History of bilateral tubal ligation (~2009) Hx of tonsillectomy (~1994) Family History Family History Mother Ovarian cancer Diabetes mellitus Multiple sclerosis Grandparent Ovarian cancer Father Heart disease Leukemia Social History Social History Social History: She has smoked as much as 2 packs of cigarettes per day. She started smoking when she was 18. She is down to 1 pack of cigarettes per day. She does not drink any alcohol. She smokes marijuana daily. She has smoked and snorted methamphetamines for the last 7 years. She denies any other illicit substance use. She lives with her significant other. She has 9 cats and 3 dogs at home. She has a pit bull, husky and hound dog. Smoking packs per day: 1.5 Smoking cigarettes per day: 30.0 Years smoked: 23 Smoking pack-years: 34.50 Smoking status: Current every day smoker Tobacco type: cigarettes Additional smoking assessment comments: Patient stated she use to smoke 2 packs a day Alcohol intake: never Substance use: current Substance use type: methamphetamine Last use: 10/06/2021 marijuana, meth 10/10/2022 Lack of Transportation: YES Lack of Food: Sometimes True Current Housing: I Have Housing Concerned About Future Housing: Decline to Answer Difficulty Paying Gas/Electric Bills: YES Difficulty Paying for Meds: No Currently Unemployed: No Education: High School Diploma/GED Difficulty w/ Childcare or Family Care: No Additional living arrangements comments: Lives with her significant other. Additional occupation/education comments: On disability. Spiritual care concerns: No Exam Const: General: healthy appearing Nutritional Appearance: well nourished Orientation/consciousness: patient oriented x3 Limitations: no limitations HENMT: Head: normal to inspection Ears: external ears normal Face/Nose/Sinus: Normal external nose present Face and sinus: normal facial exam Eyes: Conjunctivae: conjunctivae normal Pupils: Equal, round and reactive pupils present EOM: EOMs intact bilaterally Neck: Neck: normal visual inspection Chest: Chest palpation & inspection: normal inspection of the chest Resp: Effort & Inspection: normal respiratory effort and not labored Auscultation: clear to auscultation bilaterally and no crackles Cardio: Rate: regular rate Rhythm: regular rhythm Heart sounds: no murmurs GI: Inspection: non-distended GI Palp: Yes Soft to palpation and No Tenderness to palpation present (GI) Auscultation: normal bowel sounds : General: Yes bladder normal to palpation Back/Spine/Pelvis: Back: no CVA tenderness Skin: General skin exam: normal color Rashes: no rashes Neuro: General: patient oriented x3 Cranial nerves: Yes Nystagmus not present Speech: normal speech Extrem: General: normal to inspection Psych: Mental Status: mental status grossly abnormal Affect: No normal affect and Sad affect present ( anxious) Attitude: cooperative Other: no suicide or homicide ideation Course Vital Signs Vital signs: Vital Signs Oxygen Delivery Room Air 04/05/24 16:52 Temperature 36.6 C 04/05/24 16:58 Pulse Rate 95 04/05/24 16:58 Respiratory Rate 18 04/05/24 16:58 Blood Pressure 122/91 H 04/05/24 16:58 Pulse Oximetry 97 04/05/24 16:58 Oxygen Delivery Room Air 04/05/24 16:58 MDM - Psych MDM Narrative Medical decision making narrative: patient is a 44-year-old female with psychiatry issues and here with some anxiety. She is AAO x4. She is nonsuicidal. We will give her some Ativan which typically works for this patient. She asks if she can be discharged at this time as she is stable. She is AAO x4 without hallucinations or suicide ideations. Discharge Plan Discharge Clinical Impression: Anxiety Patient Disposition: Home, Self-Care Condition: Improved Instructions: Anxiety (ED) Patient Language: Swedish Prescriptions: No Action ziprasidone HCl [Geodon] 60 mg capsule 120 mg PO BID Rx Instructions: give with food (meal/snack) (DME) OneTouch Ultra Test Strip See Rx Instructions .ROUTE .COMPLEX Qty: 360 5RF Dose Instruction: TESTING 4 TIMES A DAY Rx Instructions: TESTING 4 TIMES A DAY (DME) lancets [TRUEplus Lancets] 33 gauge misc See Rx Instructions .ROUTE .COMPLEX Qty: 100 5RF Dose Instruction: DIRECTED. TESTING 4 TIMES A DAY DX:E11.9 Rx Instructions: DIRECTED. TESTING 4 TIMES A DAY DX:E11.9 dapagliflozin propanediol [Farxiga] 10 mg tablet See Rx Instructions .ROUTE .COMPLEX Qty: 90 3RF Dose Instruction: TAKE ONE TABLET BY MOUTH DAILY Rx Instructions: TAKE ONE TABLET BY MOUTH DAILY (DME) blood-glucose meter [Blood Glucose Monitoring] Kit See Rx Instructions .Route Qty: 1 0RF Rx Instructions: As directed (DME) pen needle, diabetic [TRUEplus Pen Needle] 29 gauge x 1/2 needle See Rx Instructions .ROUTE .COMPLEX Qty: 100 5RF Dose Instruction: USING 3 TIMES A DAY Rx Instructions: USING 3 TIMES A DAY miconazole nitrate 200 mg suppository 200 mg vaginal QHS 3 Days Qty: 3 1RF nicotine 21 mg/24 hr patch 24 hour 1 patch transdermal DAILY Qty: 28 0RF Rx Instructions: STEP 1 duloxetine 60 mg capsule,delayed release(DR/EC) See Rx Instructions .ROUTE .COMPLEX Qty: 180 3RF Dose Instruction: TAKE TWO CAPSULES BY MOUTH EVERY MORNING Rx Instructions: TAKE TWO CAPSULES BY MOUTH EVERY MORNING metformin 1,000 mg tablet See Rx Instructions .ROUTE .COMPLEX Qty: 180 3RF Dose Instruction: TAKE ONE TABLET BY MOUTH TWICE A DAY Rx Instructions: TAKE ONE TABLET BY MOUTH TWICE A DAY gabapentin 100 mg capsule See Rx Instructions .ROUTE .COMPLEX Qty: 180 0RF Dose Instruction: TAKE ONE CAPSULE BY MOUTH EVERY MORNING AND TAKE TWO CAPSULES BY MOUTH EVERY EVENING Rx Instructions: TAKE ONE CAPSULE BY MOUTH EVERY MORNING AND TAKE TWO CAPSULES BY MOUTH EVERY EVENING simvastatin 40 mg tablet See Rx Instructions .ROUTE .COMPLEX Qty: 90 0RF Dose Instruction: TAKE ONE TABLET BY MOUTH DAILY Rx Instructions: TAKE ONE TABLET BY MOUTH DAILY ziprasidone HCl 60 mg capsule See Rx Instructions .ROUTE .COMPLEX Qty: 180 0RF Dose Instruction: TAKE ONE TABLET BY MOUTH IN THE MORNING AND 2 IN THE EVENING Rx Instructions: TAKE ONE TABLET BY MOUTH IN THE MORNING AND 2 IN THE EVENING atenolol 50 mg tablet See Rx Instructions .ROUTE .COMPLEX Qty: 90 3RF Dose Instruction: TAKE ONE TABLET BY MOUTH DAILY Rx Instructions: TAKE ONE TABLET BY MOUTH DAILY trazodone 100 mg tablet See Rx Instructions .ROUTE .COMPLEX Qty: 60 0RF Dose Instruction: TAKE TWO TABLETS BY MOUTH BEDTIME Rx Instructions: TAKE TWO TABLETS BY MOUTH BEDTIME Trulicity 1.5 mg/0.5 mL pen injector 1.5 mg subcut WEEKLY Qty: 2 1RF alprazolam [Xanax] 1 mg tablet 1 mg PO BID PRN (Reason: anxiety) Qty: 20 0RF Follow-up/Referrals: Clark Graff DO [Primary Care Provider] - Time of Disposition: 18:11
--- OUTSIDE RECORDS SUMMARY | 2024-04-05 17:19 | XMS_ITS ---
Care Plan - [facility] Created on: April 05, 2024 KEDARCarenMARCELLA : 1980 Sex: Female Author Organization [facility] Address [address] [place] [address] Phone Care Team Providers Care Forest Ecology Professor Name Role Phone Unavailable Unavailable Unavailable
--- OUTSIDE RECORDS SUMMARY | 2024-04-05 17:19 | XMS_ITS | Clinical Summary ---
Author Organization [facility] Address [address] [place] [id number] Care Team Providers Care Alcoholic Counselor Name Role Phone Clark Graff DO Primary Care Provider [phone] Allergies Active Allergy Reactions Criticality Noted Date [...] on file Legal Sex Female 10:42 PM SCRIPT EDITOR Gender Identity Not on file Sexual Orientation [...] PAPILLOMAVIRUS, HIGH-RISK TYPES Routine 04/02/2022 8:00 AM SCRIPT EDITOR from Last 3 Months or Most Recently Relevant to Health Maintenance Results * HUMAN PAPILLOMAVIRUS, HIGH-RISK TYPES (04/02/2022 8:00 AM SCRIPT EDITOR) SPEC DESCRIPTION CERVIX 04/04/19 2:[address] [facility] HPV DNA HIGH RISK NEGATIVE NEGATIVE 04/04/2022 7:19 [address] [facility] Comment:SEE CYTOLOGY REPORT 04/02/2022 8:00 AM SCRIPT EDITOR Marcela Lowe ALLERGY PHYSICIAN PATHOLOGY/CYTOLOGY ORDERA BLES Final Result [facility] [address] [place] [id number], from Last 3 Months or Most Recently Relevant to Health Maintenance Additional Health Concerns Infection Onset Date Last Indicated MRSA 03/16/2018 03/16/2018 Insurance [facility] Care Teams Alcoholic Counselor Relationship Specialty Start Date End Date Clark Graff DO [address] [place] [address] PCP - General FAMILY PRACTICE 01/17/20
--- OUTSIDE RECORDS SUMMARY | 2024-04-05 17:19 | XMS_ITS ---
Author Organization [facility] Address [address] [place] [address] Phone Care Team Providers Care Hvac Estimator Name Role Phone Unavailable Unavailable Unavailable Plan [...] Dates Guarantor Ph one MARCELLA HARRY Self [phone] Clinical Notes Includes: Signed Clinical Notes starting from 03/21/2022 No Clinical Notes Recorded
--- OUTSIDE RECORDS SUMMARY | 2024-04-05 17:19 | XMS_ITS | Encounter Summary ---
Author Organization [facility] Address [address] [place] [address] Care Team Providers Care Back Tender Pulp Drier Name Role Phone Clark Graff DO Primary Care Provider [phone] Encounter Details Date Type Department Care Team (Late st Contact Info) Description 08/07/2018 Abstract [facility] CONVERSION [address] [place] [address] , Generic Conversion, Social History Tobacco Use Types Packs/Day Years Used Date Smoking Tobacco: Never Assessed Comments Unknown Sex and Gender Information Value Date Recorded Sex Assigned at Not on file Legal Sex Female 10:42 PM OPERATIONS AND INTELLIGENCE ASSISTANT Gender Identity Not on file Sexual Orientation Not on file documented as of this encounter Plan of Treatment Not on file documented as of this encounter Visit Diagnoses Not on filedocumented in this encounter Additional Health Concerns Infection Onset Date Last Indicated Resolved Time MRSA 03/16/2018 03/16/2018 documented as of this encounter Care Teams Back Tender Pulp Drier Relationship Specialty Start Date End Date Clark Graff DO [address] [place] [address] PCP - General FAMILY PRACTICE 01/17/20 documented as of this encounter
[2024-04-05] MEDS: LORazepam INJ (*CRX) 2 MG/ML VIAL 1 MG IV PUSH (17:42)
--- NOTE | 2024-04-05 18:04 | PC.NURSE ---
PT HAS EATEN SANDWICH AND CHIPS, REPORTS SHE IS FEELING BETTER AND WOULD LIKE TO GO HOME. PT IS CALLING FOR TRANSPORT AT THIS TIME. ERP IS AWARE. PT CONTINUES TO DENY HI OR SI. PT IS CALM AND COOPERATIVE.
[2024-04-05 18:20] VITALS: BP 138/88; PULSE 78; RESP 18; O2SAT 98
== END 2024-04-05 18:20 | disposition home or self-care (01) ==
PROVIDERS: Emergency Provider Emergency Medicine; PCP Family Medicine
DX: F41.9 Anxiety disorder, unspecified (principal); E11.9 Type 2 diabetes mellitus without complications; I10 Essential (primary) hypertension; F17.210 Nicotine dependence, cigarettes, uncomplicated
CPT/HCPCS: 96374; 99284; J2060

== ENCOUNTER 2024-04-29 05:45 | Emergency (ER) | payer OTHER, SELFPAY ==
[2024-04-29 05:51] VITALS: BP 146/96; PULSE 106; RESP 18; TEMP 36.6; O2SAT 100
--- NOTE | 2024-04-29 06:04 | ED.ANXIETY ---
HPI - Anxiety General Chief Complaint: Anxiety Stated Complaint: ANXIETY Source: patient and EMS Mode of arrival: ambulatory Limitations: no limitations History of Present Illness HPI narrative: this is a 44-year-old female history drug abuse but has been 28 days sober presents with some not be able to sleep with anxiety over the past 3 to 4 weeks, currently no chest pain no shortness of breath no nausea vomiting no fever chills. complaint: anxiety Onset (ago): month(s) Severity: mild Related Data Home Medications ?Medication ?Instructions ?Recorded ?Confirmed ?Last Taken ?Type ziprasidone HCl 60 mg capsule 120 mg PO BID 02/12/24 02/12/24 02/11/24 History (Toño) Allergies Allergy/AdvReac Type Severity Reaction Status Date / Time fluconazole Allergy Severe Vomiting, Verified 04/05/24 17:17 DIZZINESS, DIARRHEA latex Allergy Intermediate Unknown Verified 04/05/24 17:17 Penicillins Allergy Intermediate Unknown Verified 04/05/24 17:17 propoxyphene (Darvocet-N 100) Allergy Intermediate Unknown Verified 04/05/24 17:17 Review of Systems Review of Systems: All systems reviewed & are unremarkable except as noted in HPI and below PMFSH Past Medical History Medical History Abdominal pain Obesity Diabetic peripheral neuropathy Schizophrenia Nicotine dependence Methamphetamine abuse Hypertension associated with diabetes Hyperlipidemia associated with type 2 diabetes mellitus Tobacco dependence ADHD Depression RAJ (generalized anxiety disorder) Vitamin D deficiency Type 2 diabetes mellitus Bipolar disorder Surgical History Surgical History Status post open reduction with internal fixation of fracture (~2002) Right ankle fracture with subsequent removal hardware 4 years later History of bilateral tubal ligation (~2009) Hx of tonsillectomy (~1994) Family History Family History Mother Ovarian cancer Diabetes mellitus Multiple sclerosis Grandparent Ovarian cancer Father Heart disease Leukemia Social History Social History Social History: She has smoked as much as 2 packs of cigarettes per day. She started smoking when she was 18. She is down to 1 pack of cigarettes per day. She does not drink any alcohol. She smokes marijuana daily. She has smoked and snorted methamphetamines for the last 7 years. She denies any other illicit substance use. She lives with her significant other. She has 9 cats and 3 dogs at home. She has a pit bull, husky and hound dog. Smoking packs per day: 1.5 Smoking cigarettes per day: 30.0 Years smoked: 23 Smoking pack-years: 34.50 Smoking status: Current every day smoker Tobacco type: cigarettes Additional smoking assessment comments: Patient stated she use to smoke 2 packs a day Alcohol intake: never Substance use: current Substance use type: former substance user Last use: 10/06/2021 marijuana, meth 10/10/2022 Lack of Transportation: YES Lack of Food: Sometimes True Current Housing: I Have Housing Concerned About Future Housing: Decline to Answer Difficulty Paying Gas/Electric Bills: YES Difficulty Paying for Meds: No Currently Unemployed: No Education: High School Diploma/GED Difficulty w/ Childcare or Family Care: No Additional living arrangements comments: Lives with her significant other. Additional occupation/education comments: On disability. Spiritual care concerns: No Exam Const: General: healthy appearing Nutritional Appearance: well nourished Orientation/consciousness: patient oriented x3 Limitations: no limitations Chest: Chest palpation & inspection: normal inspection of the chest Resp: Effort & Inspection: normal respiratory effort Auscultation: clear to auscultation bilaterally Cardio: Rate: regular rate Rhythm: regular rhythm GI: GI Palp: Yes Soft to palpation Auscultation: normal bowel sounds Urinary Catheter: Urinary Catheter: patent and draining Skin: General skin exam: normal color Rashes: no rashes Neuro: General: patient oriented x3, moves all extremities and no meningeal signs Extrem: General: normal to inspection Course Course Emergency Course: Anxiety patient received 0.5mg PO Xanax. Vital Signs Vital signs: Vital Signs Temperature 36.6 C 04/29/24 05:51 Pulse Rate 106 H 04/29/24 05:51 Respiratory Rate 18 04/29/24 05:51 Blood Pressure 146/96 H 04/29/24 05:51 Pulse Oximetry 100 04/29/24 05:51 Oxygen Delivery Room Air 04/29/24 05:51 Temperature 36.6 C 04/29/24 05:51 Pulse Rate 106 H 04/29/24 05:51 Respiratory Rate 18 04/29/24 05:51 Blood Pressure 146/96 H 02/28/25 05:51 Pulse Oximetry 100 04/29/24 05:51 Oxygen Delivery Room Air 04/29/24 05:51 Critical Care Time Critical Care Time Critical Care Time: No Discharge Plan Discharge Clinical Impression: Anxiety Insomnia Qualifiers: Insomnia type: unspecified Qualified Code(s): G47.00 - Insomnia, unspecified Patient Disposition: Home, Self-Care Condition: Stable Instructions: Antibiotic Form, Insomnia (ED), Anxiety (ED) Patient Language: Lithuanian Prescriptions: No Action ziprasidone HCl [Geodon] 60 mg capsule 120 mg PO BID Rx Instructions: give with food (meal/snack) (DME) OneTouch Ultra Test Strip See Rx Instructions .ROUTE .COMPLEX Qty: 360 5RF Dose Instruction: TESTING 4 TIMES A DAY Rx Instructions: TESTING 4 TIMES A DAY (DME) lancets [TRUEplus Lancets] 33 gauge misc See Rx Instructions .ROUTE .COMPLEX Qty: 100 5RF Dose Instruction: DIRECTED. TESTING 4 TIMES A DAY DX:E11.9 Rx Instructions: DIRECTED. TESTING 4 TIMES A DAY DX:E11.9 dapagliflozin propanediol [Farxiga] 10 mg tablet See Rx Instructions .ROUTE .COMPLEX Qty: 90 3RF Dose Instruction: TAKE ONE TABLET BY MOUTH DAILY Rx Instructions: TAKE ONE TABLET BY MOUTH DAILY (DME) blood-glucose meter [Blood Glucose Monitoring] Kit See Rx Instructions .Route Qty: 1 0RF Rx Instructions: As directed (DME) pen needle, diabetic [TRUEplus Pen Needle] 29 gauge x 1/2 needle See Rx Instructions .ROUTE .COMPLEX Qty: 100 5RF Dose Instruction: USING 3 TIMES A DAY Rx Instructions: USING 3 TIMES A DAY miconazole nitrate 200 mg suppository 200 mg vaginal QHS 3 Days Qty: 3 1RF nicotine 21 mg/24 hr patch 24 hour 1 patch transdermal DAILY Qty: 28 0RF Rx Instructions: STEP 1 duloxetine 60 mg capsule,delayed release(DR/EC) See Rx Instructions .ROUTE .COMPLEX Qty: 180 3RF Dose Instruction: TAKE TWO CAPSULES BY MOUTH EVERY MORNING Rx Instructions: TAKE TWO CAPSULES BY MOUTH EVERY MORNING metformin 1,000 mg tablet See Rx Instructions .ROUTE .COMPLEX Qty: 180 3RF Dose Instruction: TAKE ONE TABLET BY MOUTH TWICE A DAY Rx Instructions: TAKE ONE TABLET BY MOUTH TWICE A DAY gabapentin 100 mg capsule See Rx Instructions .ROUTE .COMPLEX Qty: 180 0RF Dose Instruction: TAKE ONE CAPSULE BY MOUTH EVERY MORNING AND TAKE TWO CAPSULES BY MOUTH EVERY EVENING Rx Instructions: TAKE ONE CAPSULE BY MOUTH EVERY MORNING AND TAKE TWO CAPSULES BY MOUTH EVERY EVENING simvastatin 40 mg tablet See Rx Instructions .ROUTE .COMPLEX Qty: 90 0RF Dose Instruction: TAKE ONE TABLET BY MOUTH DAILY Rx Instructions: TAKE ONE TABLET BY MOUTH DAILY atenolol 50 mg tablet See Rx Instructions .ROUTE .COMPLEX Qty: 90 3RF Dose Instruction: TAKE ONE TABLET BY MOUTH DAILY Rx Instructions: TAKE ONE TABLET BY MOUTH DAILY Trulicity 1.5 mg/0.5 mL pen injector 1.5 mg subcut WEEKLY Qty: 2 0RF trazodone 100 mg tablet See Rx Instructions .ROUTE .COMPLEX Qty: 60 0RF Dose Instruction: TAKE TWO TABLETS BY MOUTH BEDTIME Rx Instructions: TAKE TWO TABLETS BY MOUTH BEDTIME alprazolam [Xanax] 1 mg tablet 1 mg PO BID PRN (Reason: anxiety) Qty: 20 0RF ziprasidone HCl 60 mg capsule See Rx Instructions .ROUTE .COMPLEX Qty: 180 0RF Dose Instruction: TAKE ONE TABLET BY MOUTH EVERY MORNING AND TAKE TWO TABLETS BY MOUTH EVERY EVENING Rx Instructions: TAKE ONE TABLET BY MOUTH EVERY MORNING AND TAKE TWO TABLETS BY MOUTH EVERY EVENING Follow-up/Referrals: Clark Graff, [Primary Care Provider] -
[2024-04-29] MEDS: ALPRAZolam (*CRX) 0.5 MG TABLET PO (06:10)
[2024-04-29 06:28] VITALS: BP 148/85; PULSE 98; RESP 18; O2SAT 99
== END 2024-04-29 06:28 | disposition home or self-care (01) ==
PROVIDERS: Emergency Provider Emergency Medicine; PCP Family Medicine
DX: F41.9 Anxiety disorder, unspecified (principal); G47.00 Insomnia, unspecified; E11.9 Type 2 diabetes mellitus without complications; E78.5 Hyperlipidemia, unspecified; I10 Essential (primary) hypertension; F17.210 Nicotine dependence, cigarettes, uncomplicated
CPT/HCPCS: 99283; A9270

== ENCOUNTER 2024-05-03 12:16 | Emergency (ER) | payer OTHER, SELFPAY ==
[2024-05-03 12:20] VITALS: BP 128/82; PULSE 91; RESP 20; TEMP 36.5; O2SAT 99
--- NOTE | 2024-05-03 12:21 | ED.ANXIETY ---
HPI - Anxiety General Chief Complaint: Anxiety Stated Complaint: anxiety Time Seen by Provider: 05/03/24 12:21 Source: patient Mode of arrival: ambulatory Limitations: no limitations History of Present Illness HPI narrative: Patient is a 44-year-old female with known methamphetamine drug disorder who is not using and in remission for the past many weeks. Unfortunately her anxiety has become problematic more so now than prior issue. She is having trouble sleeping. patient has a planned new psychiatrist this month. She is doing tele medicine as well. MD complaint: anxiety Onset (ago): week(s) ( To) Symptoms: other (anxiety and insomnia) Severity: similar to previous episodes Quality: constant Place: home History of similar episodes: Yes Provoking factors: emotional stress Relieving factors: medication Exacerbating factors: thinking about event and other ( General anxiety) Associated symptoms: denies other symptoms Related Data Home Medications ?Medication ?Instructions ?Recorded ?Confirmed ?Last Taken ?Type ziprasidone HCl 60 mg capsule 120 mg PO BID 02/12/24 02/12/24 02/11/24 History (Toño) Allergies Allergy/AdvReac Type Severity Reaction Status Date / Time fluconazole Allergy Severe Vomiting, Verified 05/03/24 12:26 DIZZINESS, DIARRHEA latex Allergy Intermediate Unknown Verified 05/03/24 12:26 Penicillins Allergy Intermediate Unknown Verified 05/03/24 12:26 propoxyphene (Darvocet-N 100) Allergy Intermediate Unknown Verified 05/03/24 12:26 Review of Systems Review of Systems: All systems reviewed & are unremarkable except as noted in HPI and below Constitutional: Constitutional: Reports no additional constitutional complaints Eyes: Eyes: Reports no additional eye complaints ENT: Reports system reviewed and no additional complaints, except as documented Cardiovascular: Cardiovascular: Reports no additional cardiovascular complaints Respiratory: Respiratory: Reports no additional respiratory complaints Gastrointestinal: Gastrointestinal: Reports no additional gastrointestinal complaints Genitourinary: Genitourinary: Reports no additional female genitourinary complaints Musculoskeletal: Musculoskeletal: Reports no additional musculoskeletal complaints Integumentary/Breasts: Skin/Breast: Reports system reviewed and no additional complaints, except as docu Neurologic: Reports system reviewed and no additional complaints, except as documented Psychiatric: Psychiatric: Reports no additional psychiatric complaints Endocrine: Endocrine: Reports no additional endocrine complaints Hematologic/Lymphatic: Hematologic/Lymphatic: Reports no additional hematologic/lymphatic complaints Allergic/Immunologic: Allergic/Immunologic: Reports no additional allergic/immunologic complaints PMFSH Past Medical History Medical History Abdominal pain Obesity Diabetic peripheral neuropathy Schizophrenia Nicotine dependence Methamphetamine abuse Hypertension associated with diabetes Hyperlipidemia associated with type 2 diabetes mellitus Tobacco dependence ADHD Depression RAJ (generalized anxiety disorder) Vitamin D deficiency Type 2 diabetes mellitus Bipolar disorder Surgical History Surgical History Status post open reduction with internal fixation of fracture (~2002) Right ankle fracture with subsequent removal hardware 4 years later History of bilateral tubal ligation (~2009) Hx of tonsillectomy (~1994) Family History Family History Mother Ovarian cancer Diabetes mellitus Multiple sclerosis Grandparent Ovarian cancer Father Heart disease Leukemia Social History Social History Social History: She has smoked as much as 2 packs of cigarettes per day. She started smoking when she was 18. She is down to 1 pack of cigarettes per day. She does not drink any alcohol. She smokes marijuana daily. She has smoked and snorted methamphetamines for the last 7 years. She denies any other illicit substance use. She lives with her significant other. She has 9 cats and 3 dogs at home. She has a pit bull, husky and hound dog. Smoking packs per day: 1.5 Smoking cigarettes per day: 30.0 Years smoked: 23 Smoking pack-years: 34.50 Smoking status: Current every day smoker Tobacco type: cigarettes Additional smoking assessment comments: Patient stated she use to smoke 2 packs a day Alcohol intake: never Substance use: current Substance use type: former substance user Last use: 10/06/2021 marijuana, meth 10/10/2022 Lack of Transportation: YES Lack of Food: Sometimes True Current Housing: I Have Housing Concerned About Future Housing: Decline to Answer Difficulty Paying Gas/Electric Bills: YES Difficulty Paying for Meds: No Currently Unemployed: No Education: High School Diploma/GED Difficulty w/ Childcare or Family Care: No Additional living arrangements comments: Lives with her significant other. Additional occupation/education comments: On disability. Spiritual care concerns: No Exam Const: General: healthy appearing Nutritional Appearance: well nourished Orientation/consciousness: patient oriented x3 Limitations: no limitations Other: patient does not appear intoxicated HENMT: Head: normal to inspection Ears: external ears normal Face/Nose/Sinus: Normal external nose present Eyes: Conjunctivae: conjunctivae normal Pupils: Equal, round and reactive pupils present EOM: EOMs intact bilaterally Neck: Neck: normal visual inspection Chest: Chest palpation & inspection: normal inspection of the chest Resp: Effort & Inspection: normal respiratory effort and not labored Auscultation: clear to auscultation bilaterally and no crackles Cardio: Rate: regular rate Rhythm: regular rhythm Heart sounds: no murmurs GI: Inspection: non-distended GI Palp: Yes Soft to palpation and No Tenderness to palpation present (GI) Auscultation: normal bowel sounds : General: Yes bladder normal to palpation Back/Spine/Pelvis: Back: no CVA tenderness Skin: General skin exam: normal color Rashes: no rashes Wounds: no wounds Neuro: General: patient oriented x3 Cranial nerves: Yes Nystagmus not present Speech: normal speech Gait exam (Neuro): Normal gait present Extrem: General: normal to inspection Psych: Mental Status: mental status grossly normal Affect: normal affect and Anxious affect present Attitude: cooperative Course Vital Signs Vital signs: Vital Signs Temperature 36.5 C 05/03/24 12:20 Pulse Rate 91 05/03/24 12:20 Respiratory Rate 20 05/03/24 12:20 Blood Pressure 128/82 05/03/24 12:20 Pulse Oximetry 99 05/03/24 12:20 Oxygen Delivery Room Air 05/03/24 12:20 Temperature 36.5 C 05/03/24 12:20 Pulse Rate 91 05/03/24 12:20 Respiratory Rate 20 05/03/24 12:20 Blood Pressure 128/82 05/03/24 12:20 Pulse Oximetry 99 05/03/24 12:20 Oxygen Delivery Room Air 05/03/24 12:20 MDM - Anxiety MDM Narrative Medical decision making narrative: patient is a 44-year-old female with general anxiety and has detoxed from methamphetamines over the past month. She is currently not intoxicated or detox at this time. We will give her Ativan. We will refill her Xanax. She only gets a small amount of medication. Discharge Plan Discharge Clinical Impression: Anxiety, Drug abuse in remission Insomnia Qualifiers: Insomnia type: unspecified Qualified Code(s): G47.00 - Insomnia, unspecified Patient Disposition: Home, Self-Care Condition: Stable Instructions: Anxiety (ED) Patient Language: Citizen Of [place] Prescriptions: New alprazolam [Xanax] 1 mg tablet 1 mg PO BID PRN (Reason: anxiety) Qty: 20 0RF No Action ziprasidone HCl [Geodon] 60 mg capsule 120 mg PO BID Rx Instructions: give with food (meal/snack) trazodone 100 mg tablet 100 mg PO HS PRN (Reason: insomnia) Qty: 14 0RF (DME) OneTouch Ultra Test Strip See Rx Instructions .ROUTE .COMPLEX Qty: 360 5RF Dose Instruction: TESTING 4 TIMES A DAY Rx Instructions: TESTING 4 TIMES A DAY (DME) lancets [TRUEplus Lancets] 33 gauge misc See Rx Instructions .ROUTE .COMPLEX Qty: 100 5RF Dose Instruction: DIRECTED. TESTING 4 TIMES A DAY DX:E11.9 Rx Instructions: DIRECTED. TESTING 4 TIMES A DAY DX:E11.9 dapagliflozin propanediol [Farxiga] 10 mg tablet See Rx Instructions .ROUTE .COMPLEX Qty: 90 3RF Dose Instruction: TAKE ONE TABLET BY MOUTH DAILY Rx Instructions: TAKE ONE TABLET BY MOUTH DAILY (DME) blood-glucose meter [Blood Glucose Monitoring] Kit See Rx Instructions .Route Qty: 1 0RF Rx Instructions: As directed (DME) pen needle, diabetic [TRUEplus Pen Needle] 29 gauge x 1/2 needle See Rx Instructions .ROUTE .COMPLEX Qty: 100 5RF Dose Instruction: USING 3 TIMES A DAY Rx Instructions: USING 3 TIMES A DAY miconazole nitrate 200 mg suppository 200 mg vaginal QHS 3 Days Qty: 3 1RF nicotine 21 mg/24 hr patch 24 hour 1 patch transdermal DAILY Qty: 28 0RF Rx Instructions: STEP 1 duloxetine 60 mg capsule,delayed release(DR/EC) See Rx Instructions .ROUTE .COMPLEX Qty: 180 3RF Dose Instruction: TAKE TWO CAPSULES BY MOUTH EVERY MORNING Rx Instructions: TAKE TWO CAPSULES BY MOUTH EVERY MORNING metformin 1,000 mg tablet See Rx Instructions .ROUTE .COMPLEX Qty: 180 3RF Dose Instruction: TAKE ONE TABLET BY MOUTH TWICE A DAY Rx Instructions: TAKE ONE TABLET BY MOUTH TWICE A DAY gabapentin 100 mg capsule See Rx Instructions .ROUTE .COMPLEX Qty: 180 0RF Dose Instruction: TAKE ONE CAPSULE BY MOUTH EVERY MORNING AND TAKE TWO CAPSULES BY MOUTH EVERY EVENING Rx Instructions: TAKE ONE CAPSULE BY MOUTH EVERY MORNING AND TAKE TWO CAPSULES BY MOUTH EVERY EVENING simvastatin 40 mg tablet See Rx Instructions .ROUTE .COMPLEX Qty: 90 0RF Dose Instruction: TAKE ONE TABLET BY MOUTH DAILY Rx Instructions: TAKE ONE TABLET BY MOUTH DAILY atenolol 50 mg tablet See Rx Instructions .ROUTE .COMPLEX Qty: 90 3RF Dose Instruction: TAKE ONE TABLET BY MOUTH DAILY Rx Instructions: TAKE ONE TABLET BY MOUTH DAILY Trulicity 1.5 mg/0.5 mL pen injector 1.5 mg subcut WEEKLY Qty: 2 0RF trazodone 100 mg tablet See Rx Instructions .ROUTE .COMPLEX Qty: 60 0RF Dose Instruction: TAKE TWO TABLETS BY MOUTH BEDTIME Rx Instructions: TAKE TWO TABLETS BY MOUTH BEDTIME alprazolam [Xanax] 1 mg tablet 1 mg PO BID PRN (Reason: anxiety) Qty: 20 0RF ziprasidone HCl 60 mg capsule See Rx Instructions .ROUTE .COMPLEX Qty: 180 0RF Dose Instruction: TAKE ONE TABLET BY MOUTH EVERY MORNING AND TAKE TWO TABLETS BY MOUTH EVERY EVENING Rx Instructions: TAKE ONE TABLET BY MOUTH EVERY MORNING AND TAKE TWO TABLETS BY MOUTH EVERY EVENING Follow-up/Referrals: Clark Graff DO [Primary Care Provider] - Time of Disposition: 12:38
[2024-05-03] MEDS: LORazepam INJ (*CRX) 2 MG/ML VIAL 1 MG IM (12:50)
== END 2024-05-03 12:55 | disposition home or self-care (01) ==
PROVIDERS: Emergency Provider Emergency Medicine; PCP Family Medicine
DX: F41.9 Anxiety disorder, unspecified (principal); G47.00 Insomnia, unspecified; F15.10 Other stimulant abuse, uncomplicated; E11.9 Type 2 diabetes mellitus without complications; I10 Essential (primary) hypertension; E78.5 Hyperlipidemia, unspecified; F17.210 Nicotine dependence, cigarettes, uncomplicated
CPT/HCPCS: 96372; 99283; J2060

== ENCOUNTER 2024-05-13 13:13 | Outpatient (CLI) | payer OTHER, SELFPAY ==
--- OUTSIDE RECORDS SUMMARY | 2024-05-13 13:19 | XMS_ITS | Clinical Summary ---
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 Gender Identity Not on file Sexual Orientation Not on file Last Filed Vital Signs Vital Sign Reading Time Taken Comments Blood Pressure 140/88 11/25/2023 6:45 PM CDT Pulse 99 11/25/2023 6:45 PM CDT Temperature 36.4 C (97.5 F) 11/25/2023 5:59 PM CDT Respiratory Rate 18 11/25/2023 6:45 PM CDT [...] PAPILLOMAVIRUS, HIGH-RISK TYPES Routine 04/02/2022 8:00 AM SWIMMING POOL PLASTERER HELPER from Last 3 Months or Most Recently Relevant to Health Maintenance Results * HUMAN PAPILLOMAVIRUS, HIGH-RISK TYPES (04/02/2022 8:00 AM SWIMMING POOL PLASTERER HELPER) SPEC DESCRIPTION CERVIX 04/04/19 2:54 PM SWIMMING POOL PLASTERER HELPER [facility] HPV DNA HIGH RISK NEGATIVE NEGATIVE 04/04/2022 7:19 PM SWIMMING POOL PLASTERER HELPER [facility] Comment:SEE CYTOLOGY REPORT 04/02/2022 8:00 AM SWIMMING POOL PLASTERER HELPER Marcela Lowe MOBILE MARKETING SPECIALIST PATHOLOGY/CYTOLOGY ORDERA BLES Final Result [facility] [address] [place] [address], from Last 3 Months or Most Recently Relevant to Health Maintenance Additional Health Concerns Infection Onset Date Last Indicated MRSA 03/16/2018 03/16/2018 [facility] Care Teams Sorority Mother Relationship Specialty Start Date End Date Clark Graff [place] [address] PCP - General FAMILY PRACTICE 01/17/20
--- OUTSIDE RECORDS SUMMARY | 2024-05-13 13:19 | XMS_ITS | Encounter Summary ---
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
--- OUTSIDE RECORDS SUMMARY | 2024-05-13 13:19 | XMS_ITS ---
Author Organization [facility] Address [address] [place] [address] Phone Care Team Providers Care Dental Therapist Name Role Phone Unavailable Unavailable Unavailable Plan of Treatment No Plan of Treatment Recorded Assessments Includes: Assessments for all patient encounters No Assessments Recorded Medical Equipment - Implanted Devices Includes: Current and historical Devices No Medical Equipment Recorded Medications Administered Includes: Administered Medications in patient's chart No Administered Medications Recorded Results Includes: Results from 05/14/2023 through 05/13/2024 No Results Recorded For Specified Dates History [...] Dates Guarantor Ph one MARCELLA HARRY Self [phone] Clinical Notes Includes: Signed Clinical Notes starting from 03/21/2022 No Clinical Notes Recorded
--- OUTSIDE RECORDS SUMMARY | 2024-05-13 13:19 | XMS_ITS ---
Care Plan - [facility] Created on: May 13, 2024 KEDARCarenMARCELLA : 1980 Sex: Female Author Organization [facility] Address [address] [place] [address] Phone Care Team Providers Care Visual Educator Name Role Phone Unavailable Unavailable Unavailable
[2024-05-13 13:31] LABS: Basophils Absolute Auto 0.07 K/mm3 (0.00-0.10); Basophils Percent Auto 0.7 % (0.0-1.0); Eosinophils Absolute Auto 0.34 K/mm3 (0.02-0.50); Eosinophils Percent Auto 3.4 % (1.0-6.0); Hematocrit 45.6 % (35.0-49.0); Hemoglobin 14.5 g/dL (12.0-15.0); Immature Granulocyte Absolute 0.07 K/mm3 (0.00-0.00); Immature Granulocyte Percent A 0.7 % (0.0-0.0); Lymphocytes Absolute Auto 3.06 K/mm3 (1.10-4.50); Lymphocytes Percent Auto 30.7 % (18.0-42.0); Mean Corpuscular HGB Conc 31.8 g/dL (32-36); Mean Corpuscular Hemoglobin 28.2 pg (27.0-31.0); Mean Corpuscular Volume 88.7 fL (78.0-102.0); Monocytes Absolute Auto 0.66 K/mm3 (0.10-0.90); Monocytes Percent Auto 6.6 % (2.0-11.0); Neutrophils Absolute Auto 5.78 K/mm3 (1.70-7.20); Neutrophils Percent Auto 57.9 % (50.0-70.0); Platelet Count Result 418 K/mm3 (150-420); Red Blood Count 5.14 M/mm3 (4.20-5.40); Red Cell Distribution Width 12.7 % (11.6-14.4)
[2024-05-13 13:52] LABS: Alanine Aminotransferase 48 U/L (14-59); Albumin Level 3.9 g/dL (3.4-5.0); Alkaline Phosphatase 77 U/L (46-116); Anion Gap 8 mmol/L (4-12); Aspartate Amino Transferase 21 U/L (15-37); Bilirubin,Total 0.2 mg/dL (0.00-1.00); Blood Urea Nitrogen 19 mg/dL (7-18); Calcium 9.7 mg/dL (8.5-10.1); Carbon Dioxide 31 mmol/L (21-32); Chloride 103 mmol/L (98-108); Cholesterol 144 mg/dL (0-200); Estimated Glomerular Filt Rate > 60; Glucose 166 mg/dL (70-99); HDL Direct 50 mg/dL (40-60); LDL Cholesterol Calculated 49 mg/dL (<130); Magnesium 1.9 mg/dL (1.8-2.4); Osmolality Calculated 300 mOsm/kg (285-295); Potassium 4.4 mmol/L (3.5-5.1); Sodium 142 mmol/L (136-145); Total Protein 7.5 g/dL (6.4-8.2); Triglycerides 225 mg/dL (0-150)
[2024-05-13 13:56] LABS: Thyroid Stimulating Hormone Reflex 2.44 u/IU/mL (0.36-3.74)
== END 2024-05-13 13:14 | disposition home or self-care (01) ==
PROVIDERS: PCP Family Medicine; Visit Provider Family Medicine
DX: E83.42 Hypomagnesemia (principal); F20.9 Schizophrenia, unspecified; E03.9 Hypothyroidism, unspecified
CPT/HCPCS: 36415; 80053; 80061; 83735; 84443; 85025

== ENCOUNTER 2024-05-27 10:20 | Emergency (ER) | payer OTHER, SELFPAY ==
[2024-05-27 10:21] VITALS: BP 151/99; PULSE 103; RESP 20; TEMP 36.6; O2SAT 97
--- OUTSIDE RECORDS SUMMARY | 2024-05-27 11:12 | XMS_ITS ---
Author Organization [facility] Address [address] [place] [address] Phone Care Team Providers Care Fast Food Crew Lead Name Role Phone Unavailable Unavailable Unavailable Plan of Treatment No Plan of Treatment Recorded Assessments Includes: Assessments for all patient encounters No Assessments Recorded Medical Equipment - Implanted Devices Includes: Current and historical Devices No Medical Equipment Recorded Medications Administered Includes: Administered Medications in patient's chart No Administered Medications Recorded Results Includes: Results from 05/28/2023 through 05/27/2024 No Results Recorded For Specified Dates History [...] Dates Guarantor Ph one MARCELLA HARRY Self [phone] Clinical Notes Includes: Signed Clinical Notes starting from 03/21/2022 No Clinical Notes Recorded
--- OUTSIDE RECORDS SUMMARY | 2024-05-27 11:12 | XMS_ITS | Encounter Summary ---
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
--- OUTSIDE RECORDS SUMMARY | 2024-05-27 11:12 | XMS_ITS ---
Care Plan - [facility] Created on: May 27, 2024 KEDARCarenMARCELLA : 1980 Sex: Female Author Organization [facility] Address [address] [place] [address] Phone Care Team Providers Care Engineer Sergeant Name Role Phone Unavailable Unavailable Unavailable
--- OUTSIDE RECORDS SUMMARY | 2024-05-27 11:12 | XMS_ITS | Clinical Summary ---
Author Organization [facility] Address [address] [place] [address] Care Team Providers Care Business Support Administrator Name Role Phone Clark Graff DO Primary Care Provider [phone] Allergies Active Allergy Reactions Criticality Noted Date [...] on file Legal Sex Female 10:42 PM LIQUID FERTILIZER SERVICER Gender Identity Not on file Sexual [...] PAPILLOMAVIRUS, HIGH-RISK TYPES Routine 04/02/2022 8:00 AM LIQUID FERTILIZER SERVICER from Last 3 Months or Most Recently Relevant to Health Maintenance Results * HUMAN PAPILLOMAVIRUS, HIGH-RISK TYPES (04/02/2022 8:00 AM LIQUID FERTILIZER SERVICER) SPEC DESCRIPTION CERVIX 04/04/19 2:54 PM LIQUID FERTILIZER SERVICER [facility] HPV DNA HIGH RISK NEGATIVE NEGATIVE 04/04/2022 7:19 PM LIQUID FERTILIZER SERVICER [facility] Comment:SEE CYTOLOGY REPORT 04/02/2022 8:00 AM LIQUID FERTILIZER SERVICER Marcela Lowe DRUG AND ALCOHOL TREATMENT SPECIALIST PATHOLOGY/CYTOLOGY ORDERA BLES Final Result [facility] [address] [place] [address], from Last 3 Months or Most Recently Relevant to Health Maintenance Additional Health Concerns Infection Onset Date Last Indicated MRSA 03/16/2018 03/16/2018 [facility] Care Teams Business Support Administrator Relationship Specialty Start Date End Date Clark Graff DO [facility] [place] [address] PCP - General FAMILY PRACTICE 01/17/20
--- NOTE | 2024-05-27 11:26 | ED.ANXIETY ---
HPI - Anxiety General Chief Complaint: Anxiety Stated Complaint: anxiety Time Seen by Provider: 05/27/24 10:46 Source: patient Mode of arrival: ambulatory Limitations: no limitations History of Present Illness HPI narrative: Patient is a 44-year-old female with known multiple psychiatric problems here with anxiety. She is out of her Xanax. She has a psychiatry appointment coming up in the next few weeks. patient has been off methamphetamines for greater than 40 days. MD complaint: anxiety Onset (ago): year(s) Symptoms: other ( None) Severity: moderate Quality: constant Place: home History of similar episodes: Yes Provoking factors: emotional stress Relieving factors: nothing Exacerbating factors: other ( she has general anxiety) Associated symptoms: denies other symptoms Related Data Home Medications ?Medication ?Instructions ?Recorded ?Confirmed ?Last Taken ?Type ziprasidone HCl 60 mg capsule 120 mg PO BID 02/12/24 05/13/24 02/11/24 History (Toño) Allergies Allergy/AdvReac Type Severity Reaction Status Date / Time fluconazole Allergy Severe Vomiting, Verified 05/13/24 12:58 DIZZINESS, DIARRHEA latex Allergy Intermediate Unknown Verified 05/13/24 12:58 Penicillins Allergy Intermediate Unknown Verified 05/13/24 12:58 propoxyphene (Darvocet-N 100) Allergy Intermediate Unknown Verified 05/13/24 12:58 Review of Systems Review of Systems: All systems reviewed & are unremarkable except as noted in HPI and below Constitutional: Constitutional: Reports no additional constitutional complaints Eyes: Eyes: Reports no additional eye complaints ENT: Reports system reviewed and no additional complaints, except as documented Cardiovascular: Cardiovascular: Reports no additional cardiovascular complaints Respiratory: Respiratory: Reports no additional respiratory complaints Gastrointestinal: Gastrointestinal: Reports no additional gastrointestinal complaints Genitourinary: Genitourinary: Reports no additional female genitourinary complaints Musculoskeletal: Musculoskeletal: Reports no additional musculoskeletal complaints Integumentary/Breasts: Skin/Breast: Reports system reviewed and no additional complaints, except as docu Neurologic: Reports system reviewed and no additional complaints, except as documented Psychiatric: Psychiatric: Reports no additional psychiatric complaints Endocrine: Endocrine: Reports no additional endocrine complaints Hematologic/Lymphatic: Hematologic/Lymphatic: Reports no additional hematologic/lymphatic complaints Allergic/Immunologic: Allergic/Immunologic: Reports no additional allergic/immunologic complaints PMFSH Past Medical History Medical History Abdominal pain Obesity Diabetic peripheral neuropathy Schizophrenia Nicotine dependence Methamphetamine abuse Hypertension associated with diabetes Hyperlipidemia associated with type 2 diabetes mellitus Tobacco dependence ADHD Depression RAJ (generalized anxiety disorder) Vitamin D deficiency Type 2 diabetes mellitus Bipolar disorder Surgical History Surgical History Status post open reduction with internal fixation of fracture (~2002) Right ankle fracture with subsequent removal hardware 4 years later History of bilateral tubal ligation (~2009) Hx of tonsillectomy (~1994) Family History Family History Mother Ovarian cancer Diabetes mellitus Multiple sclerosis Grandparent Ovarian cancer Father Heart disease Leukemia Social History Social History Social History: She has smoked as much as 2 packs of cigarettes per day. She started smoking when she was 18. She is down to 1 pack of cigarettes per day. She does not drink any alcohol. She smokes marijuana daily. She has smoked and snorted methamphetamines for the last 7 years. She denies any other illicit substance use. She lives with her significant other. She has 9 cats and 3 dogs at home. She has a pit bull, husky and hound dog. Smoking packs per day: 1.5 Smoking cigarettes per day: 30.0 Years smoked: 23 Smoking pack-years: 34.50 Smoking status: Current every day smoker Tobacco type: cigarettes Additional smoking assessment comments: Patient stated she use to smoke 2 packs a day Alcohol intake: never Substance use: current Substance use type: marijuana and methamphetamine Last use: 10/06/2021 marijuana, meth 10/10/2022 Lack of Transportation: YES Lack of Food: Sometimes True Current Housing: I Have Housing Concerned About Future Housing: Decline to Answer Difficulty Paying Gas/Electric Bills: YES Difficulty Paying for Meds: No Currently Unemployed: No Education: High School Diploma/GED Difficulty w/ Childcare or Family Care: No Additional living arrangements comments: Lives with her significant other. Additional occupation/education comments: On disability. Spiritual care concerns: No Exam Const: General: healthy appearing Nutritional Appearance: well nourished Orientation/consciousness: patient oriented x3 Limitations: no limitations HENMT: Head: normal to inspection Ears: external ears normal Face/Nose/Sinus: Normal external nose present Eyes: Conjunctivae: conjunctivae normal Pupils: Equal, round and reactive pupils present EOM: EOMs intact bilaterally Neck: Neck: normal visual inspection Chest: Chest palpation & inspection: normal inspection of the chest Resp: Effort & Inspection: normal respiratory effort and not labored Auscultation: clear to auscultation bilaterally and no crackles Cardio: Rate: regular rate Rhythm: regular rhythm Heart sounds: no murmurs GI: Inspection: non-distended GI Palp: Yes Soft to palpation and No Tenderness to palpation present (GI) Auscultation: normal bowel sounds : General: Yes bladder normal to palpation Back/Spine/Pelvis: Back: no CVA tenderness Skin: General skin exam: normal color Rashes: no rashes Wounds: no wounds Neuro: General: patient oriented x3 Cranial nerves: Yes Nystagmus not present Speech: normal speech Gait exam (Neuro): Normal gait present Extrem: General: normal to inspection Psych: Mental Status: mental status grossly normal Affect: Anxious affect present Attitude: cooperative Other: No suicide or homicide ideation Course Vital Signs Vital signs: Vital Signs Temperature 36.6 C 05/27/24 10:21 Pulse Rate 103 H 05/27/24 10:21 Respiratory Rate 20 05/27/24 10:21 Blood Pressure 151/99 H 05/27/24 10:21 Pulse Oximetry 97 05/27/24 10:21 Oxygen Delivery Room Air 05/27/24 10:21 Temperature 36.6 C 05/27/24 10:21 Pulse Rate 103 H 05/27/24 10:21 Respiratory Rate 20 05/27/24 10:21 Blood Pressure 151/99 H 05/27/24 10:21 Pulse Oximetry 97 05/27/24 10:21 Oxygen Delivery Room Air 05/27/24 10:21 MDM - Anxiety MDM Narrative Medical decision making narrative: patient is a 44-year-old female with general anxiety. She has been off for meth amphetamine use through over 40 days now. She is still having some anxiety. She is out of her Xanax. We will refill a 15 day supply of Xanax. Discharge Plan Discharge Clinical Impression: Anxiety Patient Disposition: Home, Self-Care Condition: Stable Instructions: Anxiety (ED) Additional Instructions: Please make sure to follow-up with your psychiatrist as planned in the next few weeks. Patient Language: Montserratian Prescriptions: New alprazolam [Xanax] 1 mg tablet 1 mg PO BID PRN (Reason: anxiety) Qty: 30 0RF No Action ziprasidone HCl [Geodon] 60 mg capsule 120 mg PO BID Rx Instructions: give with food (meal/snack) alprazolam 2 mg tablet 2 mg PO BID PRN (Reason: anxiety) Qty: 20 0RF (DME) OneTouch Ultra Test Strip See Rx Instructions .ROUTE .COMPLEX Qty: 360 5RF Dose Instruction: TESTING 4 TIMES A DAY Rx Instructions: TESTING 4 TIMES A DAY (DME) lancets [TRUEplus Lancets] 33 gauge misc See Rx Instructions .ROUTE .COMPLEX Qty: 100 5RF Dose Instruction: DIRECTED. TESTING 4 TIMES A DAY DX:E11.9 Rx Instructions: DIRECTED. TESTING 4 TIMES A DAY DX:E11.9 dapagliflozin propanediol [Farxiga] 10 mg tablet See Rx Instructions .ROUTE .COMPLEX Qty: 90 3RF Dose Instruction: TAKE ONE TABLET BY MOUTH DAILY Rx Instructions: TAKE ONE TABLET BY MOUTH DAILY (DME) blood-glucose meter [Blood Glucose Monitoring] Kit See Rx Instructions .Route Qty: 1 0RF Rx Instructions: As directed (DME) pen needle, diabetic [TRUEplus Pen Needle] 29 gauge x 1/2 needle See Rx Instructions .ROUTE .COMPLEX Qty: 100 5RF Dose Instruction: USING 3 TIMES A DAY Rx Instructions: USING 3 TIMES A DAY nicotine 21 mg/24 hr patch 24 hour 1 patch transdermal DAILY Qty: 28 0RF Rx Instructions: STEP 1 duloxetine 60 mg capsule,delayed release(DR/EC) See Rx Instructions .ROUTE .COMPLEX Qty: 180 3RF Dose Instruction: TAKE TWO CAPSULES BY MOUTH EVERY MORNING Rx Instructions: TAKE TWO CAPSULES BY MOUTH EVERY MORNING metformin 1,000 mg tablet See Rx Instructions .ROUTE .COMPLEX Qty: 180 3RF Dose Instruction: TAKE ONE TABLET BY MOUTH TWICE A DAY Rx Instructions: TAKE ONE TABLET BY MOUTH TWICE A DAY simvastatin 40 mg tablet See Rx Instructions .ROUTE .COMPLEX Qty: 90 0RF Dose Instruction: TAKE ONE TABLET BY MOUTH DAILY Rx Instructions: TAKE ONE TABLET BY MOUTH DAILY atenolol 50 mg tablet See Rx Instructions .ROUTE .COMPLEX Qty: 90 3RF Dose Instruction: TAKE ONE TABLET BY MOUTH DAILY Rx Instructions: TAKE ONE TABLET BY MOUTH DAILY Trulicity 1.5 mg/0.5 mL pen injector 1.5 mg subcut WEEKLY Qty: 2 0RF ziprasidone HCl 60 mg capsule See Rx Instructions .ROUTE .COMPLEX Qty: 180 0RF Dose Instruction: TAKE ONE TABLET BY MOUTH EVERY MORNING AND TAKE TWO TABLETS BY MOUTH EVERY EVENING Rx Instructions: TAKE ONE TABLET BY MOUTH EVERY MORNING AND TAKE TWO TABLETS BY MOUTH EVERY EVENING gabapentin 100 mg capsule See Rx Instructions .ROUTE .COMPLEX Qty: 180 0RF Dose Instruction: TAKE ONE CAPSULE BY MOUTH IN THE MORNING AND TWO CAPSULES IN THE EVENING Rx Instructions: TAKE ONE CAPSULE BY MOUTH IN THE MORNING AND TWO CAPSULES IN THE EVENING trazodone 100 mg tablet See Rx Instructions .ROUTE .COMPLEX Qty: 60 0RF Dose Instruction: TAKE TWO TABLETS BY MOUTH BEDTIME Rx Instructions: TAKE TWO TABLETS BY MOUTH BEDTIME Follow-up/Referrals: Clark Graff DO [Primary Care Provider] - Time of Disposition: 11:31
--- OUTSIDE RECORDS SUMMARY | 2024-05-27 11:49 | XMS_ITS | Clinical Summary ---
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 Gender Identity Not on file Sexual Orientation [...] PAPILLOMAVIRUS, HIGH-RISK TYPES Routine 04/02/2022 8:00 AM DOCKING PILOT from Last 3 Months or Most Recently Relevant to Health Maintenance Results * HUMAN PAPILLOMAVIRUS, HIGH-RISK TYPES (04/02/2022 8:00 AM DOCKING PILOT) SPEC DESCRIPTION CERVIX 04/04/19 2:54 PM DOCKING PILOT [facility] HPV DNA HIGH RISK NEGATIVE NEGATIVE 04/04/2022 7:19 PM DOCKING PILOT [facility] Comment:SEE CYTOLOGY REPORT 04/02/2022 8:00 AM DOCKING PILOT Marcela Lowe ENTRY LEVEL ELECTRICAL ENGINEER PATHOLOGY/CYTOLOGY ORDERA BLES Final Result [facility] [address] [place] [address], from Last 3 Months or Most Recently Relevant to Health Maintenance Additional Health Concerns Infection Onset Date Last Indicated MRSA 03/16/2018 03/16/2018 [facility] Care Teams Lead Data Architect Relationship Specialty Start Date End Date Clark Graff DO [facility] [place] [address] PCP - General FAMILY PRACTICE 01/17/20
--- OUTSIDE RECORDS SUMMARY | 2024-05-27 11:49 | XMS_ITS | Encounter Summary ---
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
== END 2024-05-27 11:46 | disposition home or self-care (01) ==
PROVIDERS: Emergency Provider Emergency Medicine; PCP Family Medicine
DX: F41.9 Anxiety disorder, unspecified (principal); E11.9 Type 2 diabetes mellitus without complications; E78.5 Hyperlipidemia, unspecified; I10 Essential (primary) hypertension; F17.210 Nicotine dependence, cigarettes, uncomplicated
CPT/HCPCS: 99281

== ENCOUNTER 2024-05-28 16:36 | Emergency (ER) | payer OTHER, SELFPAY ==
--- OUTSIDE RECORDS SUMMARY | 2024-05-28 16:38 | XMS_ITS ---
Author Organization [facility] Address [address] [place] [address] Phone Care Team Providers Care Coil Assembler Name Role Phone Unavailable Unavailable Unavailable Plan of Treatment No Plan of Treatment Recorded Assessments Includes: Assessments for all patient encounters No Assessments Recorded Medical Equipment - Implanted Devices Includes: Current and historical Devices No Medical Equipment Recorded Medications Administered Includes: Administered Medications in patient's chart No Administered Medications Recorded Results Includes: Results from 05/29/2023 through 05/28/2024 No Results Recorded For Specified Dates History [...] Dates Guarantor Ph one MARCELLA HARRY Self [phone] Clinical Notes Includes: Signed Clinical Notes starting from 03/21/2022 No Clinical Notes Recorded
--- OUTSIDE RECORDS SUMMARY | 2024-05-28 16:38 | XMS_ITS ---
Care Plan - [facility] Created on: May 28, 2024 KEDARCarenMARCELLA : 1980 Sex: Female Author Organization [facility] Address [address] [place] [address] Phone Care Team Providers Care Law Examiner Name Role Phone Unavailable Unavailable Unavailable
--- OUTSIDE RECORDS SUMMARY | 2024-05-28 16:38 | XMS_ITS | Encounter Summary ---
Author Organization [facility] Address [address] [place] [address] Care Team Providers Care Supervisor Matrix Name Role Phone Clark Graff DO Primary Care Provider [phone] Encounter Details Date Type Department Care Team (Late st Contact Info) Description 08/07/2018 Abstract [facility] CONVERSION [address] [place] [address] , Generic Conversion, Social History Tobacco Use Types Packs/Day Years Used Date Smoking Tobacco: Never Assessed Comments Unknown Sex and Gender Information Value Date Recorded Sex Assigned at Not on file Legal Sex Female 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
--- OUTSIDE RECORDS SUMMARY | 2024-05-28 16:38 | XMS_ITS | Clinical Summary ---
Author Organization [facility] Address [address] [place] [address] Care Team Providers Care Building Custodial Supervisor Name Role Phone Clark Graff DO Primary Care Provider [phone] Allergies Active Allergy Reactions Criticality Noted Date [...] on file Legal Sex Female 10:42 PM MAMMAL KEEPER Gender Identity Not on file Sexual [...] PAPILLOMAVIRUS, HIGH-RISK TYPES Routine 04/02/2022 8:00 AM MAMMAL KEEPER from Last 3 Months or Most Recently Relevant to Health Maintenance Results * HUMAN PAPILLOMAVIRUS, HIGH-RISK TYPES (04/02/2022 8:00 AM MAMMAL KEEPER) SPEC DESCRIPTION CERVIX 04/04/19 2:54 PM MAMMAL KEEPER [facility] HPV DNA HIGH RISK NEGATIVE NEGATIVE 04/04/2022 7:19 PM MAMMAL KEEPER [facility] Comment:SEE CYTOLOGY REPORT 04/02/2022 8:00 AM MAMMAL KEEPER Marcela Lowe INDUSTRIAL SPRAYPAINTER PATHOLOGY/CYTOLOGY ORDERA BLES Final Result [facility] [address] [place] [address], from Last 3 Months or Most Recently Relevant to Health Maintenance Additional Health Concerns Infection Onset Date Last Indicated MRSA 03/16/2018 03/16/2018 Insurance [facility] Care Teams Building Custodial Supervisor Relationship Specialty Start Date End Date Clark Graff DO [facility] [place] [address] PCP - General FAMILY PRACTICE 01/17/20
[2024-05-28 16:43] VITALS: BP 144/93; PULSE 91; RESP 18; TEMP 36.6; O2SAT 97
--- NOTE | 2024-05-28 17:10 | ECG_ITS ---
Test Date: 2024-05-28 17:29:47 Measurements Intervals [place] Rate: 89 P: 57 LA: 155 QRS: -7 QRSD: 92 T: 28 QT: 357 QTc: 435 Interpretive Statements SINUS RHYTHM NORMAL ECG Compared to ECG 02/12/2024 19:07:51 Indeterminate axis no longer present Incomplete right bundle-branch block no longer present Electronically Signed On 05-29-2024 07:35:29 CDT by Alcon Vicente M.D.
--- OUTSIDE RECORDS SUMMARY | 2024-05-28 17:13 | XMS_ITS | Encounter Summary ---
Author Organization [facility] Address [address] [place] [address] Care Team Providers Care Turf And Grounds Supervisor Name Role Phone Clark Graff DO Primary Care Provider [phone] Encounter Details Date Type Department Care Team (Late st Contact Info) Description 08/07/2018 Abstract [facility] CONVERSION [address] [place] [address] , Generic Conversion, Social History Tobacco Use Types Packs/Day Years Used Date Smoking Tobacco: Never Assessed Comments Unknown Sex and Gender Information Value Date Recorded Sex Assigned at Not on file Legal Sex Female 10:42 PM INSPECTOR 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
--- OUTSIDE RECORDS SUMMARY | 2024-05-28 17:13 | XMS_ITS ---
Author Organization [facility] Address [address] [place] [address] Phone Care Team Providers Care Wort Extractor Name Role Phone Unavailable Unavailable Unavailable Plan [...] Dates Guarantor Ph one MARCELLA HARRY Self [phone] Clinical Notes Includes: Signed Clinical Notes starting from 03/21/2022 No Clinical Notes Recorded
--- OUTSIDE RECORDS SUMMARY | 2024-05-28 17:13 | XMS_ITS | Clinical Summary ---
Author Organization [facility] Address [address] [place] [address] Care Team Providers Care Leather Coverer Name Role Phone Clark Graff DO Primary Care Provider [phone] Allergies Active Allergy Reactions Criticality Noted Date [...] on file Legal Sex Female 10:42 PM RESAWYER Gender Identity Not on file Sexual Orientation [...] PAPILLOMAVIRUS, HIGH-RISK TYPES Routine 04/02/2022 8:00 AM RESAWYER from Last 3 Months or Most Recently Relevant to Health Maintenance Results * HUMAN PAPILLOMAVIRUS, HIGH-RISK TYPES (04/02/2022 8:00 AM RESAWYER) SPEC DESCRIPTION CERVIX 04/04/19 2:54 PM RESAWYER [facility] HPV DNA HIGH RISK NEGATIVE NEGATIVE 04/04/2022 7:19 PM RESAWYER [facility] Comment:SEE CYTOLOGY REPORT 04/02/2022 8:00 AM RESAWYER Marcela Lowe SALES SERVICE MANAGER PATHOLOGY/CYTOLOGY ORDERA BLES Final Result [facility] [address] [place] [address], from Last 3 Months or Most Recently Relevant to Health Maintenance Additional Health Concerns Infection Onset Date Last Indicated MRSA 03/16/2018 03/16/2018 Insurance [facility] Care Teams Leather Coverer Relationship Specialty Start Date End Date Clark Graff [place] [facility] [place] [address] PCP - General FAMILY PRACTICE 01/17/20
--- OUTSIDE RECORDS SUMMARY | 2024-05-28 17:13 | XMS_ITS ---
Care Plan - [facility] Created on: May 28, 2024 KEDARCarenMARCELLA : 1980 Sex: Female Author Organization [facility] Address [address] [place] [address] Phone Care Team Providers Care Vending Route Servicer Name Role Phone Unavailable Unavailable Unavailable
[2024-05-28 17:26] LABS: Glucose Point of Care 102 mg/dl (65-105)
[2024-05-28 17:45] LABS: Add Urine Microscopic? YES; Bilirubin Urine Negative (Negative); Blood Urine Negative (Negative); Color Urine Light Yellow (Yellow); Glucose Urine UA 3+ (Negative); Ketones Urine Negative (Negative); Leukocyte Esterase Ur Trace LEU/UL (Negative); Nitrate Urine Negative (Negative); Protein Urine Negative (Negative); Specific Grav Ur 1.015 (1.010-1.020); Urobilinogen Urine 0.2 mg/dL (0.2-1.0)
[2024-05-28 17:47] LABS: Amphetamine Screen Urine Negative (Negative); Barbiturate Screen Urine Negative (Negative); Benzodiazepines Screen Urine Positive (Negative); Cannabinoid Screen Urine Positive (Negative); Cocaine Screen Urine Negative (Negative); Methadone Screen Urine Negative (Negative); Opiate Screen Urine Negative (Negative); Phencyclidine Screen Urine Negative (Negative)
[2024-05-28 17:53] LABS: Amorphous Sediment Urine Few; Appearance Urine Sl Cloudy (Clear); Bacteria Urine 1+ /hpf; Squamous Epithelial Cell Urine Many /hpf (Few); WBC Urine None seen /hpf (0-3)
[2024-05-28 17:54] LABS: Pregnancy On Board Control Positive; Urine Pregnancy Test Negative
[2024-05-28 18:12] LABS: Basophils Percent Auto 0.6 % (0.0-1.0); Eosinophils Absolute Auto 0.27 K/mm3 (0.02-0.50); Eosinophils Percent Auto 1.7 % (1.0-6.0); Hematocrit 45.8 % (35.0-49.0); Immature Granulocyte Absolute 0.06 K/mm3 (0.00-0.00); Immature Granulocyte Percent A 0.4 % (0.0-0.0); Lymphocytes Absolute Auto 3.83 K/mm3 (1.10-4.50); Lymphocytes Percent Auto 24.4 % (18.0-42.0); Mean Corpuscular HGB Conc 32.8 g/dL (32-36); Mean Corpuscular Hemoglobin 28.1 pg (27.0-31.0); Mean Corpuscular Volume 85.9 fL (78.0-102.0); Monocytes Absolute Auto 0.94 K/mm3 (0.10-0.90); Neutrophils Absolute Auto 10.48 K/mm3 (1.70-7.20); Neutrophils Percent Auto 66.9 % (50.0-70.0); Platelet Count Result 421 K/mm3 (150-420); Red Blood Count 5.33 M/mm3 (4.20-5.40); Red Cell Distribution Width 12.8 % (11.6-14.4); White Blood Count 15.7 K/mm3 (4.8-10.8)
[2024-05-28 18:40] LABS: Alanine Aminotransferase 22 U/L (14-59); Alkaline Phosphatase 76 U/L (46-116); Anion Gap 10 mmol/L (4-12); Aspartate Amino Transferase < 10 U/L (15-37); Bilirubin,Total 0.5 mg/dL (0.00-1.00); Blood Urea Nitrogen 17 mg/dL (7-18); Calcium 9.2 mg/dL (8.5-10.1); Carbon Dioxide 30 mmol/L (21-32); Chloride 98 mmol/L (98-108); Estimated CRCL calculation 127 ml/min; Estimated Glomerular Filt Rate > 60; Glucose 108 mg/dL (70-99); Osmolality Calculated 288 mOsm/kg (285-295); Salicylate 2.3 mg/dL (2.8-20.0); Sodium 138 mmol/L (136-145); Thyroid Stimulating Hormone 0.73 uIU/mL (0.36-3.74); Total Protein 7.8 g/dL (6.4-8.2)
[2024-05-28 18:42] LABS: Ethanol < 3 mg/dL (0-6)
[2024-05-28 18:43] LABS: Acetaminophen < 2 ug/mL (10-30)
--- NOTE | 2024-05-28 18:48 | PC.NURSE ---
On 05/28/24, the student, [aftab pate ], provided care and completed [facility] documentation on this patient. I have reviewed the student's documentation and agree with the findings.
--- NOTE | 2024-05-28 19:01 | ED_ITS ---
HPI - Anxiety General Chief Complaint: Anxiety Stated Complaint: feels icky Time Seen by Provider: 05/28/24 17:01 Source: patient Mode of arrival: ambulatory Limitations: no limitations History of Present Illness HPI narrative: Patient is a 44-year-old female with a significant past medical history that presents today for suicidal ideations. Patient apparently told EMS she had suicidal ideations denied any homicidal ideations and this is apparently why she was taking here. She told the nurse she did not have suicidal ideations and a more but was press. I spoke with the patient and she 1st said she does have suicidal ideations and she does want to talk to psychiatry about it. Later that she stated that she is not suicidal but she still wants to talk to Psychiatry. She is under the impression that she can stay at night here I told her I do not know how long it will take for Psychiatry to get your did speak with her. She does need her nighttime medications however and we will give her those and because she did states she was suicidal and has suicidal ideations, she has no plan though she does need to talk to Psychiatry and we will carpenter streetcar her nighttime medications and she will talk to Psychiatry when they get here. She has been here multiple times in the past for the same thing so it is hard to tell if she is Sears with the suicidal thoughts but she does states she had suicidal ideations and therefore does need to speak with psych. We will follow proper protocol for this and medically clear her blood work 1st and then call psych. complaint: anxiety and other ( Suicidal ideation, depression) Onset (ago): day(s) Symptoms: other ( anxiety and suicidal ideation) Severity: mild Quality: intermittent Place: home History of similar episodes: Yes Provoking factors: emotional stress Relieving factors: medication Exacerbating factors: nothing Associated symptoms: denies other symptoms Related Data Home Medications ?Medication ?Instructions ?Recorded ?Confirmed ?Last Taken ?Type ziprasidone HCl 60 mg capsule 120 mg PO BID 02/12/24 05/13/24 02/11/24 History (Toño) Allergies Allergy/AdvReac Type Severity Reaction Status Date / Time fluconazole Allergy Severe Vomiting, Verified 05/28/24 18:17 DIZZINESS, DIARRHEA latex Allergy Intermediate Unknown Verified 05/28/24 18:17 Penicillins Allergy Intermediate Unknown Verified 05/28/24 18:17 propoxyphene (Darvocet-N 100) Allergy Intermediate Unknown Verified 05/28/24 18:17 Review of Systems 2 Review of Systems: All systems reviewed & are unremarkable except as noted in HPI and below Constitutional: Constitutional: Reports no additional constitutional complaints Eyes: Eyes: Reports no additional eye complaints ENT: Reports system reviewed and no additional complaints, except as documented Cardiovascular: Cardiovascular: Reports no additional cardiovascular complaints Respiratory: Respiratory: Reports no additional respiratory complaints Gastrointestinal: Gastrointestinal: Reports no additional gastrointestinal complaints Genitourinary: Genitourinary: Reports no additional female genitourinary complaints Musculoskeletal: Musculoskeletal: Reports no additional musculoskeletal complaints Integumentary/Breasts: Skin/Breast: Reports system reviewed and no additional complaints, except as docu Neurologic: Reports system reviewed and no additional complaints, except as documented Psychiatric: Psychiatric: Reports as per HPI, Reports anxiety, Reports depression and Reports suicidal ideation Endocrine: Endocrine: Reports no additional endocrine complaints Hematologic/Lymphatic: Hematologic/Lymphatic: Reports no additional hematologic/lymphatic complaints Allergic/Immunologic: Allergic/Immunologic: Reports no additional allergic/immunologic complaints PMFSH Past Medical History Medical History Abdominal pain Obesity Diabetic peripheral neuropathy Schizophrenia Nicotine dependence Methamphetamine abuse Hypertension associated with diabetes Hyperlipidemia associated with type 2 diabetes mellitus Tobacco dependence ADHD Depression RAJ (generalized anxiety disorder) Vitamin D deficiency Type 2 diabetes mellitus Bipolar disorder Surgical History Surgical History Status post open reduction with internal fixation of fracture (~2002) Right ankle fracture with subsequent removal hardware 4 years later History of bilateral tubal ligation (~2009) Hx of tonsillectomy (~1994) Family History Family History Mother Ovarian cancer Diabetes mellitus Multiple sclerosis Grandparent Ovarian cancer Father Heart disease Leukemia Social History Social History Social History: She has smoked as much as 2 packs of cigarettes per day. She started smoking when she was 18. She is down to 1 pack of cigarettes per day. She does not drink any alcohol. She smokes marijuana daily. She has smoked and snorted methamphetamines for the last 7 years. She denies any other illicit substance use. She lives with her significant other. She has 9 cats and 3 dogs at home. She has a pit bull, husky and hound dog. Smoking packs per day: 1.5 Smoking cigarettes per day: 30.0 Years smoked: 23 Smoking pack-years: 34.50 Smoking status: Current every day smoker Tobacco type: cigarettes Additional smoking assessment comments: Patient stated she use to smoke 2 packs a day Alcohol intake: never Substance use: current Substance use type: former substance user and marijuana Last use: 10/06/2021 marijuana, meth 10/10/2022 Lack of Transportation: YES Lack of Food: Sometimes True Current Housing: I Have Housing Concerned About Future Housing: Decline to Answer Difficulty Paying Gas/Electric Bills: YES Difficulty Paying for Meds: No Currently Unemployed: No Education: High School Diploma/GED Difficulty w/ Childcare or Family Care: No Additional living arrangements comments: Lives with her significant other. Additional occupation/education comments: On disability. Spiritual care concerns: No Exam 2 Const: General: healthy appearing Nutritional Appearance: well nourished Orientation/consciousness: patient oriented x3 HENMT: Head: normal to inspection Ears: external ears normal F emily/Nose/Sinus: Normal external nose present Face and sinus: normal facial exam Mouth: Yes Normal oral and palatal mucosa present Eyes: Conjunctivae: conjunctivae normal Pupils: Equal, round and reactive pupils present EOM: EOMs intact bilaterally Neck: Neck: normal visual inspection Chest: Chest palpation & inspection: normal inspection of the chest Resp: Effort & Inspection: normal respiratory effort Auscultation: clear to auscultation bilaterally Cardio: Rate: regular rate Rhythm: regular rhythm GI: GI Palp: Yes Soft to palpation Back/Spine/Pelvis: Back: no CVA tenderness Skin: General skin exam: normal color Rashes: no rashes Wounds: no wounds Neuro: General: patient oriented x3 Cranial nerves: Yes Nystagmus not present Speech: normal speech Extrem: General: normal to inspection Psych: Mental Status: mental status grossly normal Course Reevaluation(s) Reevaluation #1: Spoke to patient and she still wants to talk to therapy and Psychiatry and she wants to take her nighttime medications and needs them is the time she takes them at night. She takes Geodon, Xanax, metformin, atorvastatin. Will give her her nighttime medications and then wait for Psychiatry to show up and they will speak with her and make a plan process for her from there. Date: 05/28/24 Time: 19:03 Reevaluation #2: psych has decided to go with a home safety plan and safely send patient home and I agree with this. Date: 05/28/24 Time: 21:56 Vital Signs Vital signs: Vital Signs Temperature 97.9 F 05/28/24 16:43 Pulse Rate 91 05/28/24 16:43 Respiratory Rate 18 05/28/24 16:43 Blood Pressure 144/93 H 05/28/24 16:43 Pulse Oximetry 97 05/28/24 16:43 Oxygen Delivery Room Air 05/28/24 16:43 Temperature 97.6 F 05/28/24 21:50 Pulse Rate 96 05/28/24 21:50 Respiratory Rate 18 05/28/24 21:50 Blood Pressure 118/76 05/28/24 21:50 Pulse Oximetry 96 05/28/24 21:50 Oxygen Delivery Room Air 05/28/24 21:50 MDM - Anxiety Lab Data 05/28/24 18:09 05/28/24 18:09 Labs: Lab Results 05/28/24 05/28/24 05/28/24 Range/Units 17:10 17:18 17:24 WBC (4.8-10.8) K/mm3 RBC (4.20-5.40) M/mm3 Hgb (12.0-15.0) g/dL Hct (35.0-49.0) % MCV (78.0-102.0) fL MCH (27.0-31.0) pg MCHC (32-36) g/dL RDW (11.6-14.4) % Plt Count (150-420) K/mm3 MPV (9.2-11.8) fl Immature Gran % (Auto) (0.0-0.0) % Neut % (Auto) (50.0-70.0) % Lymph % (Auto) (18.0-42.0) % Scott % (Auto) (2.0-11.0) % Eos % (Auto) (1.0-6.0) % Baso % (Auto) (0.0-1.0) % Lymph # (Auto) (1.10-4.50) K/mm3 Scott # (Auto) (0.10-0.90) K/mm3 Eos # (Auto) (0.02-0.50) K/mm3 Baso # (Auto) (0.00-0.10) K/mm3 Abs Immat Gran (auto) (0.00-0.00) K/mm3 Absolute Neuts (auto) (1.70-7.20) K/mm3 Absolute Nucleated RBC (0.00-0.00) K/mm3 Nucleated RBC % (0-0.0) % Sodium (136-145) mmol/L Potassium (3.5-5.1) mmol/L Chloride (98-108) mmol/L Carbon Dioxide (21-32) mmol/L Anion Gap (4-12) mmol/L BUN (7-18) mg/dL Creatinine (0.55-1.02) mg/dL Estim Creat Clear Calc ml/min Estimated GFR (59 - ) Glucose (70-99) mg/dL POC Capillary Glucose 102 (65-105) mg/dl Calculated Osmolality (285-295) mOsm/kg Calcium (8.5-10.1) mg/dL Total Bilirubin (0.00-1.00) mg/dL AST (15-37) U/L ALT (14-59) U/L Alkaline Phosphatase (46-116) U/L Total Protein (6.4-8.2) g/dL Albumin (3.4-5.0) g/dL TSH (0.36-3.74) uIU/mL Urine Color Light yellow (Yellow) Urine Appearance Sl cloudy A (Clear) Urine pH 6.0 (5.0-8.0) Ur Specific [place] 1.015 (1.010-1.020) Urine Protein Negative (Negative) Urine Glucose (UA) 3+ H (Negative) Urine Ketones Negative (Negative) Ur Blood (Man) Negative (Negative) Urine Nitrate Negative (Negative) Urine Bilirubin Negative (Negative) Urine Urobilinogen 0.2 (0.2-1.0) mg/dL Leukocyte Esterase Rfl Trace H (Negative) RANDOLPH/UL Urine WBC None seen (0-3) /hpf Ur Squamous Epith Cells Many H (Few) /hpf Amorphous Sediment Few H (None) Urine Bacteria 1+ H (None) /hpf Urine Test Negative Salicylates (2.8-20.0) mg/dL Urine Opiates Screen Negative (Negative) Urine Methadone Screen Negative (Negative) Acetaminophen (10-30) ug/mL Ur Barbiturates Screen Negative (Negative) Ur Phencyclidine Scrn Negative (Negative) Ur Amphetamine Screen Negative (Negative) U Benzodiazepines Scrn Positive A (Negative) Urine Cocaine Screen Negative (Negative) U Cannabinoids Screen Positive A (Negative) Ethyl Alcohol (0-6) mg/dL 05/28/24 Range/Units 18:09 WBC 15.7 H (4.8-10.8) K/mm3 RBC 5.33 (4.20-5.40) M/mm3 Hgb 15.0 (12.0-15.0) g/dL Hct 45.8 (35.0-49.0) % MCV 85.9 (78.0-102.0) fL MCH 28.1 (27.0-31.0) pg MCHC 32.8 (32-36) g/dL RDW 12.8 (11.6-14.4) % Plt Count 421 H (150-420) K/mm3 MPV 9.0 L (9.2-11.8) fl Immature Gran % (Auto) 0.4 H (0.0-0.0) % Neut % (Auto) 66.9 (50.0-70.0) % Lymph % (Auto) 24.4 (18.0-42.0) % Scott % (Auto) 6.0 (2.0-11.0) % Eos % (Auto) 1.7 (1.0-6.0) % Baso % (Auto) 0.6 (0.0-1.0) % Lymph # (Auto) 3.83 (1.10-4.50) K/mm3 Scott # (Auto) 0.94 H (0.10-0.90) K/mm3 Eos # (Auto) 0.27 (0.02-0.50) K/mm3 Baso # (Auto) 0.10 (0.00-0.10) K/mm3 Abs Immat Gran (auto) 0.06 H (0.00-0.00) K/mm3 Absolute Neuts (auto) 10.48 H (1.70-7.20) K/mm3 Absolute Nucleated RBC 0.00 (0.00-0.00) K/mm3 Nucleated RBC % 0.0 (0-0.0) % Sodium 138 (136-145) mmol/L Potassium 4.0 (3.5-5.1) mmol/L Chloride 98 (98-108) mmol/L Carbon Dioxide 30 (21-32) mmol/L Anion Gap 10 (4-12) mmol/L BUN 17 (7-18) mg/dL Creatinine 0.65 (0.55-1.02) mg/dL Estim Creat Clear Calc 127 ml/min Estimated GFR > 60 (59 - ) Glucose 108 H (70-99) mg/dL POC Capillary Glucose (65-105) mg/dl Calculated Osmolality 288 (285-295) mOsm/kg Calcium 9.2 (8.5-10.1) mg/dL Total Bilirubin 0.5 (0.00-1.00) mg/dL AST < 10 L (15-37) U/L ALT 22 (14-59) U/L Alkaline Phosphatase 76 (46-116) U/L Total Protein 7.8 (6.4-8.2) g/dL Albumin 4.0 (3.4-5.0) g/dL TSH 0.73 (0.36-3.74) uIU/mL Urine Color (Yellow) Urine Appearance (Clear) Urine pH (5.0-8.0) Ur Specific [place] (1.010-1.020) Urine Protein (Negative) Urine Glucose (UA) (Negative) Urine Ketones (Negative) Ur Blood (Man) (Negative) Urine Nitrate (Negative) Urine Bilirubin (Negative) Urine Urobilinogen (0.2-1.0) mg/dL Leukocyte Esterase Rfl (Negative) RANDOLPH/UL Urine WBC (0-3) /hpf Ur Squamous Epith Cells (Few) /hpf Amorphous Sediment (None) Urine Bacteria (None) /hpf Urine Test Salicylates 2.3 L (2.8-20.0) mg/dL Urine Opiates Screen (Negative) Urine Methadone Screen (Negative) Acetaminophen < 2 L (10-30) ug/mL Ur Barbiturates Screen (Negative) Ur Phencyclidine Scrn (Negative) Ur Amphetamine Screen (Negative) U Benzodiazepines Scrn (Negative) Urine Cocaine Screen (Negative) U Cannabinoids Screen (Negative) Ethyl Alcohol < 3 (0-6) mg/dL Discharge Plan Discharge Clinical Impression: Depression with suicidal ideation, Bipolar disorder Patient Disposition: Home, Self-Care Condition: Stable Instructions: Anxiety (ED) Patient Language: Comoran Prescriptions: No Action ziprasidone HCl [Geodon] 60 mg capsule 120 mg PO BID Rx Instructions: give with food (meal/snack) alprazolam [Xanax] 1 mg tablet 1 mg PO BID PRN (Reason: anxiety) Qty: 30 0RF alprazolam 2 mg tablet 2 mg PO BID PRN (Reason: anxiety) Qty: 20 0RF (DME) OneTouch Ultra Test Strip See Rx Instructions .ROUTE .COMPLEX Qty: 360 5RF Dose Instruction: TESTING 4 TIMES A DAY Rx Instructions: TESTING 4 TIMES A DAY (DME) lancets [TRUEplus Lancets] 33 gauge misc See Rx Instructions .ROUTE .COMPLEX Qty: 100 5RF Dose Instruction: DIRECTED. TESTING 4 TIMES A DAY DX:E11.9 Rx Instructions: DIRECTED. TESTING 4 TIMES A DAY DX:E11.9 dapagliflozin propanediol [Farxiga] 10 mg tablet See Rx Instructions .ROUTE .COMPLEX Qty: 90 3RF Dose Instruction: TAKE ONE TABLET BY MOUTH DAILY Rx Instructions: TAKE ONE TABLET BY MOUTH DAILY (DME) blood-glucose meter [Blood Glucose Monitoring] Kit See Rx Instructions .Route Qty: 1 0RF Rx Instructions: As directed (DME) pen needle, diabetic [TRUEplus Pen Needle] 29 gauge x 1/2 needle See Rx Instructions .ROUTE .COMPLEX Qty: 100 5RF Dose Instruction: USING 3 TIMES A DAY Rx Instructions: USING 3 TIMES A DAY nicotine 21 mg/24 hr patch 24 hour 1 patch transdermal DAILY Qty: 28 0RF Rx Instructions: STEP 1 duloxetine 60 mg capsule,delayed release(DR/EC) See Rx Instructions .ROUTE .COMPLEX Qty: 180 3RF Dose Instruction: TAKE TWO CAPSULES BY MOUTH EVERY MORNING Rx Instructions: TAKE TWO CAPSULES BY MOUTH EVERY MORNING metformin 1,000 mg tablet See Rx Instructions .ROUTE .COMPLEX Qty: 180 3RF Dose Instruction: TAKE ONE TABLET BY MOUTH TWICE A DAY Rx Instructions: TAKE ONE TABLET BY MOUTH TWICE A DAY simvastatin 40 mg tablet See Rx Instructions .ROUTE .COMPLEX Qty: 90 0RF Dose Instruction: TAKE ONE TABLET BY MOUTH DAILY Rx Instructions: TAKE ONE TABLET BY MOUTH DAILY atenolol 50 mg tablet See Rx Instructions .ROUTE .COMPLEX Qty: 90 3RF Dose Instruction: TAKE ONE TABLET BY MOUTH DAILY Rx Instructions: TAKE ONE TABLET BY MOUTH DAILY Trulicity 1.5 mg/0.5 mL pen injector 1.5 mg subcut WEEKLY Qty: 2 0RF ziprasidone HCl 60 mg capsule See Rx Instructions .ROUTE .COMPLEX Qty: 180 0RF Dose Instruction: TAKE ONE TABLET BY MOUTH EVERY MORNING AND TAKE TWO TABLETS BY MOUTH EVERY EVENING Rx Instructions: TAKE ONE TABLET BY MOUTH EVERY MORNING AND TAKE TWO TABLETS BY MOUTH EVERY EVENING gabapentin 100 mg capsule See Rx Instructions .ROUTE .COMPLEX Qty: 180 0RF Dose Instruction: TAKE ONE CAPSULE BY MOUTH IN THE MORNING AND TWO CAPSULES IN THE EVENING Rx Instructions: TAKE ONE CAPSULE BY MOUTH IN THE MORNING AND TWO CAPSULES IN THE EVENING trazodone 100 mg tablet See Rx Instructions .ROUTE .COMPLEX Qty: 60 0RF Dose Instruction: TAKE TWO TABLETS BY MOUTH BEDTIME Rx Instructions: TAKE TWO TABLETS BY MOUTH BEDTIME Follow-up/Referrals: Clark Graff DO [Primary Care Provider] - Time of Disposition: 21:57
--- NOTE | 2024-05-28 19:02 | PC.NURSE ---
IV not needed. ERP said to hold insert.
[2024-05-28] MEDS: ALPRAZolam (*CRX) 0.5 MG TABLET PO (19:36)
[2024-05-28] MEDS: ATORVASTATIN 10 MG TABLET 20 MG PO (19:55)
[2024-05-28] MEDS: ZIPRASIDONE HCL 20 MG CAPSULE PO (19:55)
[2024-05-28] MEDS: metFORMIN HCL 500 MG TABLET PO (19:55)
[2024-05-28 21:50] VITALS: BP 118/76; PULSE 96; RESP 18; TEMP 36.4; O2SAT 96
== END 2024-05-28 21:58 | disposition home or self-care (01) ==
PROVIDERS: Emergency Provider Family Medicine; PCP Family Medicine
DX: F31.9 Bipolar disorder, unspecified (principal); R45.851 Suicidal ideations; E11.9 Type 2 diabetes mellitus without complications; E78.5 Hyperlipidemia, unspecified; I10 Essential (primary) hypertension; F17.210 Nicotine dependence, cigarettes, uncomplicated
CPT/HCPCS: 36415; 80053; 80143; 80179; 80307; 81001; 81025; 82077; 82948; 84443; 85025; 93005; 99284; A9270

== ENCOUNTER 2024-06-30 14:33 | Outpatient (RCR) | payer OTHER, SELFPAY ==
--- NOTE | 2024-06-30 15:19 | OPREHPOC ---
Outpatient Therapy Plan of Care This is a Multidisciplinary Plan of Care that may contain components documented by all disciplines (PT, OT, and ST.) PT Problem 1 PT Problem #1 Knowledge Deficit PT Goal 1 Goal / Goal Update independent and compliant with HEP Target Visit 4 PT Problem 2 PT Problem #2 Pain PT Goal 1 Goal / Goal Update decrease pain at worst to 4/10 or less in the L shoulder Target Visit 8 PT Problem 3 PT Problem #3 Impaired Range of Motion PT Goal 1 Goal / Goal Update 160 active L shoulder flex 150 active L shoulder abd functional L UE reach to the bra line behind back functional L UE reach to the shirt collar behind back Target Visit 8 PT Problem 4 PT Problem #4 Impaired Strength PT Goal 1 Goal / Goal Update 4+/5 L shoulder abd Target Visit 8 PT Problem 5 PT Problem #5 Impaired Functional Mobility PT Goal 1 Goal / Goal Update quick dash to display less than 50% functional deficits patient to perform home chore activities for 1/2 day or longer without having to rest due to pain Target Visit 8
--- NOTE | 2024-06-30 15:19 | PTOPEVAL1 ---
Assessment and note entered by JT File, PT Evaluation Information Assessment Status Evaluation ICD-10 Condition Codes (PT) Pain in left shoulder M25.512 Onset 06/28/24 Subjective Information patient reports she is having extreme pain in the shoulder. she reports it is a little better today after taking pain meds last night. she reports she has been having pain for about 1 week. she reports it started after sleeping on the couch one night. she reports she has increased pain in the L shoulder with any movement, but especially showering, cleaning, doing other chores around the home. she reports she does get burning around the L upper shoulder/neck. she reports she has not had any imaging yet, but reports she is getting an MRI next week. she reports within the last month she has fallen a few times. she reports she does not recall the shoulder getting hurt in any of these falls, but she cannot be completely sure it isnt from a fall. she reports she began falling over a year ago. she reports she did initially hurt the L shoulder in a fall at that time, but reports it got better for a while afterwards. Reported Pain Level Pain Score 5: Self Report Assessment PT Clinical Summary mrs. benavidez is a 44 yo woman who presents to skilled PT for evaluation and treatment of L shoulder pain. she presents today with signs and symptoms consistent with L RTC tendonitis. she displays decreased shoulder rom, strength, and pain with functional activities. continued skilled PT is indicated to improve her objective/ functional deficits and progress towards a return to her prior level functional activity performance /quality of life. Plan of Care Interventions Electrical Stimulation,Hot Pack/Cold Pack,Manual Therapy,Neuro Re-education,Patient/Caregiver Education,Therapeutic Activities,Therapeutic Exercise PT Services Indicated Yes Treatment Frequency and 2x weekly for 8 visits Duration These treatments will address the objective and functional deficits as defined above. The patient will be advanced safely and appropriately in order for the patient to progress towards his/her prior level of function. Additional exercises will be introduced and as well as a comprehensive home exercise program upon discharge, if needed, ?to ensure carryover of functional gains achieved in the clinic. This treatment plan has been reviewed and agreement upon by the patient.
--- NOTE | 2024-07-01 12:58 | PCPTNOTE ---
Cancelled session. Reports he cannot wake Lizbet up.
--- NOTE | 2024-07-12 09:21 | PCPTNOTE ---
Patient called & cancelled scheduled appointment this date due to patient unable to make it today. She will be here on Thursday. -Kirstie Parker PT
== END 2024-07-14 20:00 | disposition home or self-care (01) ==
LOC: CHSPT 14:33
PROVIDERS: PCP Family Medicine; Visit Provider Family Medicine
DX: M75.102 Unspecified rotator cuff tear or rupture of left shoulder, not specified as traumatic (principal)
CPT/HCPCS: 97014; 97110; 97161; G0283

== ENCOUNTER 2024-07-07 07:04 | Outpatient (CLI) | payer OTHER, SELFPAY ==
--- NOTE | ~2024-07-07 | MR_ITS ---
EXAMINATION: MR shoulder LT wo con DATE: 07/07/2024 09:23 INDICATION: Left shoulder pain and limited range of motion TECHNIQUE: Magnetic resonance imaging (MRI) of the left shoulder was performed without intravenous co ntrast. Sequences included axial PD-weighted FS FSE, coronal oblique PD-weighted FS FSE, coronal obli que T2-weighted FS FSE, sagittal PD-weighted FS FSE, and sagittal T1-weighted SE. COMPARISON: None. FINDINGS: Coracoacromial arch: The acromion undersurface is curved in morphology (type II). The coracoacromial ligament is normal. S evere acromioclavicular osteoarthritis with inferiorly directed osteophytes. Rotator cuff: The supraspinatus, infraspinatus and teres minor tendons are normal. The subscapularis tendon is norm al. Normal rotator cuff muscle bulk and signal. Biceps tendon, glenoid labrum and glenohumeral cartilage: Long head of the biceps tendon is normal. There is amorphous increased signal at the superior glenoid labrum consistent with degenerative tearing. Glenohumeral cartilage is normal. Fluid: Physiologic amount of fluid in the glenohumeral joint and biceps tendon sheath. No loose osteochondr al bodies. Small amount of fluid in the subcoracoid bursa consistent with mild bursitis. No abnormal fluid signal in the subacromial/subdeltoid bursa. Bones: Subarticular edema-like signal change at the acromioclavicular joint. Marrow signal is otherwise unre markable with no fracture or pathologic marrow replacing process. IMPRESSION: 1. Severe acromioclavicular osteoarthritis. 2. Degenerative tearing of the superior glenoid labrum. 3. Mild subcoracoid bursitis. Reviewed, dictated and finalized at location A.
--- OUTSIDE RECORDS SUMMARY | 2024-07-07 07:07 | XMS_ITS | Clinical Summary ---
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 Gender Identity Not on file Sexual Orientation [...] Every 3 Years 1982 Annual Physical 1985 Hepatitis C 2000 DTaP, Tdap and Td Vaccines ( 1 - Tdap) 2001 Hepatitis B Vaccines (1 of 3 - 19+ 3-dose series) 2001 Pneumococcal Vaccine: Pediat rics (0 to 5 Years) and At-Risk Patients (6 to 49 Years) (1 of 2 - PCV) 2001 Mammogram Screening 2022 COVID-19 Vaccine ( - 2023-2 5 season) 2023 Cervical Cancer Screening Pa p with [...] PAPILLOMAVIRUS, HIGH-RISK TYPES Routine 04/02/2022 8:00 AM ASSOCIATE PROFESSOR COMPUTER SCIENCE from Last 3 Months or Most Recently Relevant to Health Maintenance Results * HUMAN PAPILLOMAVIRUS, HIGH-RISK TYPES (04/02/2022 8:00 AM ASSOCIATE PROFESSOR COMPUTER SCIENCE) SPEC DESCRIPTION CERVIX 04/04/19 2:54 PM ASSOCIATE PROFESSOR COMPUTER SCIENCE [facility] HPV DNA HIGH RISK NEGATIVE NEGATIVE 04/04/2022 7:19 PM ASSOCIATE PROFESSOR COMPUTER SCIENCE [facility] Comment:SEE CYTOLOGY REPORT 04/02/2022 8:00 AM ASSOCIATE PROFESSOR COMPUTER SCIENCE Marcela Lowe PROFESSOR OF SOCIOLOGY PATHOLOGY/CYTOLOGY ORDERA BLES Final Result [facility] [address] [place] [address], from Last 3 Months or Most Recently Relevant to Health Maintenance Additional Health Concerns Infection Onset Date Last Indicated MRSA 03/16/2018 03/16/2018 Insurance [employer] Care Teams Piped Pocket Machine Operator Relationship Specialty Start Date End Date Clark Graff DO [address] [place] [address] PCP - General FAMILY PRACTICE 01/17/20
--- OUTSIDE RECORDS SUMMARY | 2024-07-07 07:07 | XMS_ITS | Encounter Summary ---
Author Organization [facility] Address [address] [place] [address] Care Team Providers Care Countersinker Name Role Phone Clark Graff DO Primary Care Provider [phone] Encounter Details Date Type Department Care Team (Late st Contact Info) Description 08/07/2018 Abstract [facility] CONVERSION [address] [place] [address] , Generic Conversion, Social History Tobacco Use Types Packs/Day Years Used Date Smoking Tobacco: Never Assessed Comments Unknown Sex and Gender Information Value Date Recorded Sex Assigned at Not on file Legal Sex Female 10:42 PM COMPANION CAREGIVER Gender Identity Not on file Sexual Orientation Not on file documented as of this encounter Plan of Treatment Not on file documented as of this encounter Visit Diagnoses Not on filedocumented in this encounter Additional Health Concerns Infection Onset Date Last Indicated Resolved Time MRSA 03/16/2018 03/16/2018 documented as of this encounter Care Teams Countersinker Relationship Specialty Start Date End Date Clark Graff DO [address] [place] [address] PCP - General FAMILY PRACTICE 01/17/20 documented as of this encounter
== END 2024-07-07 07:05 | disposition home or self-care (01) ==
LOC: CHSIMG 07:05
PROVIDERS: PCP Family Medicine; Visit Provider Family Medicine
DX: M75.102 Unspecified rotator cuff tear or rupture of left shoulder, not specified as traumatic (principal); M19.012 Primary osteoarthritis, left shoulder; S43.432A Superior glenoid labrum lesion of left shoulder, initial encounter; M75.52 Bursitis of left shoulder
CPT/HCPCS: 73221

== ENCOUNTER 2024-08-11 10:07 | Outpatient (CLI) | payer OTHER, SELFPAY | END 2024-08-11 10:08 | disposition home or self-care (01) | PROVIDERS: PCP Family Medicine; Visit Provider Family Medicine | DX: E03.9 Hypothyroidism, unspecified (principal) | CPT/HCPCS: 36415; 84443 ==

== ENCOUNTER 2024-08-22 15:07 | Emergency (ER) | payer OTHER, SELFPAY ==
--- NOTE | ~2024-08-22 | CT_ITS ---
CLINICAL INDICATION: Left lower quadrant pain COMPARISON: 01/12/2022. TECHNIQUE: Multiple contiguous axial images of the abdomen and pelvis were performed following the ad ministration of with 100 mL Omnipaque-350 intravenous contrast The dose-length product (DLP) was 1485.47 mGy-cm. Automated exposure control and iterative reconstruction technique were employed. FINDINGS/OBSERVATIONS: Visualized lower thorax: The bilateral lung bases are clear. The heart is of normal size, without pericardial effusion. Small hiatal hernia is present. Liver: The liver demonstrates homogeneous enhancement and is enlarged measuring 20 cm in longitudinal dimens ion. Gallbladder and biliary system: The gallbladder is distended, and otherwise unremarkable. Pancreas: The pancreas enhances homogeneously without ductal dilatation. Spleen: The spleen enhances homogeneously and is not enlarged Kidneys: Multiple subcentimeter foci of decreased attenuation within the bilateral kidneys, too small to characterize on the current examination. The remainder of the bilateral kidneys otherwise enhance symmetrically and are without hydronephrosis or renal calculi. Adrenal glands: Unremarkable. Gastrointestinal tract: Fecal stasis within the colon. Appendix: The air-filled appendix is of normal caliber (axial series, images 109 through 121). Vasculature: Unremarkable. Lymph nodes: No pathologically enlarged or morphologically suspicious lymph nodes within the retroperitoneum or at the root of the mesentery. Pelvic structures: The bladder is distended, and otherwise unremarkable. The uterus is anteverted and anteflexed, and otherwise unremarkable. Interval development of a rounde d focus of decreased attenuation within the left hemipelvis measuring 29 x 25 x 30 mm, likely a left ovarian cyst. Body wall and musculoskeletal: Age advanced degenerative disease within the lower lumbar spine with osteophyte formation, disc space narrowing, endplate changes and vacuum phenomena. IMPRESSION: Left ovarian (likely) cyst measuring 3 cm in greatest dimension. Hepatomegaly Reviewed, dictated and finalized at location A.
[2024-08-22 15:07] VITALS: BP 142/102; PULSE 120; RESP 20; TEMP 36.7; O2SAT 99
--- NOTE | 2024-08-22 15:26 | ED_ITS ---
HPI - Anxiety General Chief Complaint: Anxiety Stated Complaint: anxiety Source: patient Mode of arrival: ambulatory Limitations: no limitations History of Present Illness HPI narrative: 44 YEARS OLD WHITE FEMALE CAME TO THE ED BY PRIVATE CAR COMPLAINING OF SEVERE ANXIETY. PATIENT REPORTED EATING IS BUCKET T YESTERDAY WHICH COULD BE SPOILED, SUBSEQUENTLY STARTED HAVING NAUSEA, VOMITING, DIARRHEA, PATIENT IS TELLING ME SHE HAVE AT LEAST 8 EPISODES OF DIARRHEA TODAY WATERY STOOL. SHE DENIES ANY FEVER OR CHILLS. COMPLAINING OF INTERMITTENT ABDOMINAL CRAMPS. Related Data Allergies Allergy/AdvReac Type Severity Reaction Status Date / Time fluconazole Allergy Severe Vomiting, Verified 08/11/24 08:08 DIZZINESS, DIARRHEA latex Allergy Intermediate Unknown Verified 08/11/24 08:08 Penicillins Allergy Intermediate Unknown Verified 08/11/24 08:08 propoxyphene (Darvocet-N 100) Allergy Intermediate Unknown Verified 08/11/24 08:08 Review of Systems 2 Review of Systems: All systems reviewed & are unremarkable except as noted in HPI and below PMFSH Past Medical History Medical History Abdominal pain Obesity Diabetic peripheral neuropathy Schizophrenia Nicotine dependence Methamphetamine abuse Hypertension associated with diabetes Hyperlipidemia associated with type 2 diabetes mellitus Tobacco dependence ADHD Depression RAJ (generalized anxiety disorder) Vitamin D deficiency Type 2 diabetes mellitus Bipolar disorder Surgical History Surgical History Status post open reduction with internal fixation of fracture (~2002) Right ankle fracture with subsequent removal hardware 4 years later History of bilateral tubal ligation (~2009) Hx of tonsillectomy (~1994) Family History Family History Mother Ovarian cancer Diabetes mellitus Multiple sclerosis Grandparent Ovarian cancer Father Heart disease Leukemia Social History Social History Social History: She has smoked as much as 2 packs of cigarettes per day. She started smoking when she was 18. She is down to 1 pack of cigarettes per day. She does not drink any alcohol. She smokes marijuana daily. She has smoked and snorted methamphetamines for the last 7 years. She denies any other illicit substance use. She lives with her significant other. She has 9 cats and 3 dogs at home. She has a pit bull, husky and hound dog. Smoking packs per day: 1.5 Smoking cigarettes per day: 30.0 Years smoked: 23 Smoking pack-years: 34.50 Smoking status: Current every day smoker Tobacco type: cigarettes Additional smoking assessment comments: Patient stated she use to smoke 2 packs a day Alcohol intake: never Substance use: current Substance use type: marijuana and methamphetamine Last use: 10/06/2021 marijuana, meth 10/10/2022 Lack of Transportation: YES Lack of Food: Sometimes True Current Housing: I Have Housing Concerned About Future Housing: Decline to Answer Difficulty Paying Gas/Electric Bills: YES Difficulty Paying for Meds: No Currently Unemployed: No Education: High School Diploma/GED Difficulty w/ Childcare or Family Care: No Additional living arrangements comments: Lives with her significant other. Additional occupation/education comments: On disability. Spiritual care concerns: No Exam 2 Narrative: GENERAL APPEARANCE: WELL-DEVELOPED, WELL-NOURISHED SKIN: NORMAL COLOR HEAD: NORMOCEPHALIC, NONTRAUMATIC EYES: CLEAR CONJUNCTIVA ENT: OROPHARYNX NORMAL, EARS NORMAL, NOSE NORMAL NECK: SUPPLE, NONTENDER CHEST AND RESPIRATORY: AIRWAY PATENT, NO RESPIRATORY DISTRESS, NO ACCESSORY MUSCLE USE HEART: REGULAR RATE/RHYTHM ABDOMEN: SOFT, NONTENDER, NO ORGANOMEGALY, HYPERACTIVE BOWEL SOUNDS VASCULAR: NORMAL PERIPHERAL PULSES, NORMAL CAPILLARY REFILL. MUSCULOSKELETAL: NORMAL RANGE OF MOTION, NONTENDER BACK NEUROLOGIC: ALERT AND ORIENTED ?3, CHARGE ACCOUNT CLERK IS NORMAL TESTED, NO GROSS MOTOR DEFICIT Course Vital Signs Vital signs: Vital Signs Temperature 36.7 C 08/22/24 15:07 Pulse Rate 120 H 08/22/24 15:07 Respiratory Rate 20 08/22/24 15:07 Blood Pressure 142/102 H 08/22/24 15:07 Pulse Oximetry 99 08/22/24 15:07 Oxygen Delivery Room Air 08/22/24 15:07 Temperature 36.7 C 08/22/24 15:07 Pulse Rate 81 08/22/24 17:01 Respiratory Rate 20 08/22/24 17:01 Blood Pressure 111/64 08/22/24 17:01 Pulse Oximetry 98 08/22/24 17:01 Oxygen Delivery Room Air 08/22/24 15:07 MDM - Anxiety MDM Narrative Medical decision making narrative: PATIENT PRESENTS WITH ANXIETY, NAUSEA, VOMITING, DIARRHEA. VITAL SIGNS SHOWING BLOOD PRESSURE 142/102, HEART RATE OF 120 OTHERWISE WITHIN NORMAL LIMIT PHYSICAL EXAMINATION SHOWING RESTLESS PATIENT, HOLDING VOMITING BAG, HYPERACTIVE BOWEL SOUND DIFFERENTIAL DIAGNOSIS INCLUDE ANXIETY LIKE SYMPTOMS, DEHYDRATION, ELECTROLYTE IMBALANCE, FOOD POISONING, GASTROENTERITIS BLOOD WORKUP TODAY INCLUDES CBC, CMP, SHOWED NO ACUTE ABNORMALITY URINALYSIS SHOWED NO EVIDENCE OF INFECTION CT ABDOMEN AND PELVIS WITH IV CONTRAST SHOWED LEFT OVARIAN CYST DIAGNOSIS GASTROENTERITIS, ANXIETY DISCHARGED ON ZOFRAN THE PT WAS DISCHARGED TO HOME.THE PT,S CONDITION UPON DISCHARGE WAS FAIR,EDUCATION WAS PROVIDED TO THE PT IN REFERENCE TO THE FINAL IMPRESSION,DISCHARGE STUDY RESULTS,TREATMENT,PROGNOSIS AND NEED FOR FOLLOW UP . Differential Diagnosis Differential diagnosis: Likely other ( ABOVE) Medical Records Attestation: I reviewed the patient's medical records. Lab Data Attestation: I reviewed the patient's lab results. 08/22/24 15:48 08/22/24 15:48 Labs: Lab Results 08/22/24 08/22/24 Range/Units 15:24 15:48 WBC 12.5 H (4.8-10.8) K/mm3 RBC 5.33 (4.20-5.40) M/mm3 Hgb 14.9 (12.0-15.0) g/dL Hct 45.5 (35.0-49.0) % MCV 85.4 (78.0-102.0) fL MCH 28.0 (27.0-31.0) pg MCHC 32.7 (32-36) g/dL RDW 12.8 (11.6-14.4) % Plt Count 400 (150-420) K/mm3 MPV 9.3 (9.2-11.8) fl Immature Gran % (Auto) 0.6 H (0.0-0.0) % Neut % (Auto) 75.8 H (50.0-70.0) % Lymph % (Auto) 17.7 L (18.0-42.0) % [place] % (Auto) 4.7 (2.0-11.0) % Eos % (Auto) 0.8 L (1.0-6.0) % Baso % (Auto) 0.4 (0.0-1.0) % Lymph # (Auto) 2.21 (1.10-4.50) K/mm3 [place] # (Auto) 0.59 (0.10-0.90) K/mm3 Eos # (Auto) 0.10 (0.02-0.50) K/mm3 Baso # (Auto) 0.05 (0.00-0.10) K/mm3 Abs Immat Gran (auto) 0.08 H (0.00-0.00) K/mm3 Absolute Neuts (auto) 9.45 H (1.70-7.20) K/mm3 Absolute Nucleated RBC 0.00 (0.00-0.00) K/mm3 Nucleated RBC % 0.0 (0-0.0) % Sodium 139 (137-145) mmol/L Potassium 3.8 (3.4-5.0) mmol/L Chloride 103 (98-107) mmol/L Carbon Dioxide 27 (22-30) mmol/L Anion Gap 9 (4-12) mmol/L BUN 18 H (7-17) mg/dL Creatinine 0.59 L (0.7-1.0) mg/dL Estim Creat Clear Calc 145 ml/min Estimated GFR > 60 (59 - ) Glucose 131 H (65-110) mg/dL Calculated Osmolality 291 (285-295) mOsm/kg Calcium 8.8 (8.4-10.2) mg/dL Total Bilirubin 0.5 (0.2-1.3) mg/dL AST 26 (14-36) U/L ALT 22 (6-35) U/L Alkaline Phosphatase 68 (38-126) U/L Total Protein 7.7 (6.3-8.2) g/dL Albumin 4.4 (3.5-5.1) g/dL Lipase 63 (23-300) U/L Urine Color Light yellow (Yellow) Urine Appearance Clear (Clear) Urine pH 7.0 (5.0-8.0) Ur Specific [place] 1.020 (1.010-1.020) Urine Protein Negative (Negative) Urine Glucose (UA) Negative (Negative) Urine Ketones Negative (Negative) Ur Blood (Man) Negative (Negative) Urine Nitrate Negative (Negative) Urine Bilirubin Negative (Negative) Urine Urobilinogen 2.0 H (0.2-1.0) mg/dL Leukocyte Esterase Rfl Negative (Negative) RANDOLPH/UL Urine RBC None seen (0-2) /hpf Urine WBC None seen (0-3) /hpf Ur Squamous Epith Cells Few (Few) /hpf Urine Bacteria Trace (None) /hpf Imaging Data Radiologist's impression: Impressions Abdomen/Pelvis CT 08/22/24 17:01 IMPRESSION: Left ovarian (likely) cyst measuring 3 cm in greatest dimension. Hepatomegaly Critical Care Time Critical Care Time Critical Care Time: No Discharge Plan Discharge Clinical Impression: Anxiety, Gastroenteritis Patient Disposition: Home Condition: Improved Instructions: Gastroenteritis (ED), Anxiety (ED) Additional Instructions: RETURN IF SYMPTOMS ARE WORSENING , CALL YOUR FAMILY PHYSICIAN FOR APPOINTMENT, TAKE TYLENOL NEEDED FOR ACHES AND PAIN, CONTINUE HOME MEDICATIONS. Patient Language: [place]ian Prescriptions: New ondansetron 4 mg tablet,disintegrating 4 mg PO Q4H PRN (Reason: nausea and vomiting) 3 Days Qty: 10 0RF No Action ziprasidone HCl 60 mg capsule See Rx Instructions .ROUTE .COMPLEX Qty: 180 0RF Dose Instruction: TAKE ONE TABLET BY MOUTH EVERY MORNING AND TAKE TWO TABLETS BY MOUTH EVERY EVENING Rx Instructions: TAKE ONE TABLET BY MOUTH EVERY MORNING AND TAKE TWO TABLETS BY MOUTH EVERY EVENING (DME) OneTouch Ultra Test Strip See Rx Instructions .ROUTE .COMPLEX Qty: 360 5RF Dose Instruction: TESTING 4 TIMES A DAY Rx Instructions: TESTING 4 TIMES A DAY (DME) lancets [TRUEplus Lancets] 33 gauge misc See Rx Instructions .ROUTE .COMPLEX Qty: 100 5RF Dose Instruction: DIRECTED. TESTING 4 TIMES A DAY DX:E11.9 Rx Instructions: DIRECTED. TESTING 4 TIMES A DAY DX:E11.9 dapagliflozin propanediol [Farxiga] 10 mg tablet See Rx Instructions .ROUTE .COMPLEX Qty: 90 3RF Dose Instruction: TAKE ONE TABLET BY MOUTH DAILY Rx Instructions: TAKE ONE TABLET BY MOUTH DAILY miconazole nitrate 200 mg suppository 200 mg vaginal QHS 3 Days Qty: 3 1RF (DME) blood-glucose meter [Blood Glucose Monitoring] Kit See Rx Instructions .Route Qty: 1 0RF Rx Instructions: As directed (DME) pen needle, diabetic [TRUEplus Pen Needle] 29 gauge x 1/2 needle See Rx Instructions .ROUTE .COMPLEX Qty: 100 5RF Dose Instruction: USING 3 TIMES A DAY Rx Instructions: USING 3 TIMES A DAY duloxetine 60 mg capsule,delayed release(DR/EC) See Rx Instructions .ROUTE .COMPLEX Qty: 180 3RF Dose Instruction: TAKE TWO CAPSULES BY MOUTH EVERY MORNING Rx Instructions: TAKE TWO CAPSULES BY MOUTH EVERY MORNING metformin 1,000 mg tablet See Rx Instructions .ROUTE .COMPLEX Qty: 180 3RF Dose Instruction: TAKE ONE TABLET BY MOUTH TWICE A DAY Rx Instructions: TAKE ONE TABLET BY MOUTH TWICE A DAY atenolol 50 mg tablet See Rx Instructions .ROUTE .COMPLEX Qty: 90 3RF Dose Instruction: TAKE ONE TABLET BY MOUTH DAILY Rx Instructions: TAKE ONE TABLET BY MOUTH DAILY gabapentin 100 mg capsule See Rx Instructions .ROUTE .COMPLEX Qty: 180 0RF Dose Instruction: TAKE ONE CAPSULE BY MOUTH IN THE MORNING AND TWO CAPSULES IN THE EVENING Rx Instructions: TAKE ONE CAPSULE BY MOUTH IN THE MORNING AND TWO CAPSULES IN THE EVENING nicotine 21 mg/24 hr patch 24 hour See Rx Instructions .ROUTE .COMPLEX Qty: 28 0RF Dose Instruction: ONE (1) PATCH TRANSDERMALLY DAILY; STEP ONE (1) Rx Instructions: ONE (1) PATCH TRANSDERMALLY DAILY; STEP ONE (1) simvastatin 40 mg tablet See Rx Instructions .ROUTE .COMPLEX Qty: 90 0RF Dose Instruction: TAKE ONE TABLET BY MOUTH DAILY Rx Instructions: TAKE ONE TABLET BY MOUTH DAILY alprazolam 2 mg tablet 2 mg PO BID PRN (Reason: anxiety) Qty: 20 0RF trazodone 100 mg tablet See Rx Instructions .ROUTE .COMPLEX Qty: 60 0RF Dose Instruction: TAKE TWO TABLETS BY MOUTH BEDTIME Rx Instructions: TAKE TWO TABLETS BY MOUTH BEDTIME hydrocodone-acetaminophen 5-325 mg tablet 0.5 tablet PO Q8H PRN (Reason: pain) Qty: 20 0RF Trulicity 1.5 mg/0.5 mL pen injector See Rx Instructions .ROUTE .COMPLEX Qty: 2 0RF Dose Instruction: INJECT ONE AND A HALF (1 & 1/2) ML SUBCUTANEOUSLY ONCE WEEKLY Rx Instructions: INJECT ONE AND A HALF (1 & 1/2) ML SUBCUTANEOUSLY ONCE WEEKLY Follow-up/Referrals: Clark Graff, [Primary Care Provider] -
[2024-08-22] MEDS: SODIUM CHLORIDE 0.9% IV 1,000 ML 999 ML IV CONT ×2 (15:51→16:44)
[2024-08-22] MEDS: LORazepam INJ (*CRX) 2 MG/ML VIAL 1 MG IV PUSH (15:51)
[2024-08-22] MEDS: ONDANSETRON INJ 4 MG/2 ML VIAL 8 MG IV PUSH (15:52)
[2024-08-22 16:01] LABS: Add Urine Microscopic? YES; Appearance Urine Clear (Clear); Bilirubin Urine Negative (Negative); Blood Urine Negative (Negative); Color Urine Light Yellow (Yellow); Glucose Urine UA Negative (Negative); Ketones Urine Negative (Negative); Leukocyte Esterase Ur Negative LEU/UL (Negative); Nitrate Urine Negative (Negative); Protein Urine Negative (Negative)
[2024-08-22 16:01] LABS: Basophils Absolute Auto 0.05 K/mm3 (0.00-0.10); Basophils Percent Auto 0.4 % (0.0-1.0); Eosinophils Percent Auto 0.8 % (1.0-6.0); Hematocrit 45.5 % (35.0-49.0); Hemoglobin 14.9 g/dL (12.0-15.0); Immature Granulocyte Absolute 0.08 K/mm3 (0.00-0.00); Immature Granulocyte Percent A 0.6 % (0.0-0.0); Lymphocytes Absolute Auto 2.21 K/mm3 (1.10-4.50); Lymphocytes Percent Auto 17.7 % (18.0-42.0); Mean Corpuscular HGB Conc 32.7 g/dL (32-36); Mean Corpuscular Volume 85.4 fL (78.0-102.0); Mean Platelet Volume 9.3 fl (9.2-11.8); Monocytes Absolute Auto 0.59 K/mm3 (0.10-0.90); Monocytes Percent Auto 4.7 % (2.0-11.0); Neutrophils Absolute Auto 9.45 K/mm3 (1.70-7.20); Neutrophils Percent Auto 75.8 % (50.0-70.0); Platelet Count Result 400 K/mm3 (150-420); Red Blood Count 5.33 M/mm3 (4.20-5.40); Red Cell Distribution Width 12.8 % (11.6-14.4); White Blood Count 12.5 K/mm3 (4.8-10.8)
[2024-08-22 16:12] LABS: Alanine Aminotransferase 22 U/L (6-35); Albumin Level 4.4 g/dL (3.5-5.1); Alkaline Phosphatase 68 U/L (38-126); Anion Gap 9 mmol/L (4-12); Aspartate Amino Transferase 26 U/L (14-36); Bilirubin,Total 0.5 mg/dL (0.2-1.3); Blood Urea Nitrogen 18 mg/dL (7-17); Calcium 8.8 mg/dL (8.4-10.2); Carbon Dioxide 27 mmol/L (22-30); Chloride 103 mmol/L (98-107); Estimated CRCL calculation 145 ml/min; Estimated Glomerular Filt Rate > 60; Glucose 131 mg/dL (65-110); Lipase 63 U/L (23-300); Osmolality Calculated 291 mOsm/kg (285-295); Potassium 3.8 mmol/L (3.4-5.0); Sodium 139 mmol/L (137-145); Total Protein 7.7 g/dL (6.3-8.2)
[2024-08-22 16:35] LABS: Bacteria Urine Trace /hpf; RBC Urine None seen /hpf (0-2); Squamous Epithelial Cell Urine Few /hpf (Few); WBC Urine None seen /hpf (0-3)
[2024-08-22 17:01] VITALS: BP 111/64; PULSE 81; RESP 20; O2SAT 98
== END 2024-08-22 17:17 | disposition home or self-care (01) ==
PROVIDERS: Emergency Provider Emergency Medicine; PCP Family Medicine
DX: F41.9 Anxiety disorder, unspecified (principal); K52.9 Noninfective gastroenteritis and colitis, unspecified; E11.9 Type 2 diabetes mellitus without complications; E78.5 Hyperlipidemia, unspecified; F17.210 Nicotine dependence, cigarettes, uncomplicated
CPT/HCPCS: 36415; 74177; 80053; 81001; 83690; 85025; 96361; 96374; 96375; 99284; J2060; J2405; J7030; Q9967

== ENCOUNTER 2024-08-28 10:55 | Emergency (ER) | payer OTHER, SELFPAY ==
[2024-08-28 10:55] VITALS: BP 138/83; PULSE 96; RESP 20; TEMP 36.4; O2SAT 97
--- NOTE | 2024-08-28 11:11 | ED.ANXIETY ---
HPI - Anxiety General Chief Complaint: Anxiety Stated Complaint: anxiety Time Seen by Provider: 08/28/24 11:02 Source: patient Mode of arrival: ambulatory Limitations: no limitations History of Present Illness HPI narrative: Patient is a 44-year-old female with chronic anxiety and changing psychiatrist this week. Her psychiatrist writes her Xanax typically. She is out of her Xanax at this time. She takes Xanax 1 mg twice a day. Patient has been sober from amphetamines for the past month. MD complaint: anxiety Onset (ago): day(s) ( Two) Symptoms: sense of impending doom Severity: moderate Quality: constant Place: home History of similar episodes: Yes Provoking factors: emotional stress Relieving factors: medication ( Xanax chronically used) Exacerbating factors: thinking about event and other ( general anxiety) Associated symptoms: denies other symptoms Related Data Allergies Allergy/AdvReac Type Severity Reaction Status Date / Time fluconazole Allergy Severe Vomiting, Verified 08/28/24 11:58 DIZZINESS, DIARRHEA latex Allergy Intermediate Unknown Verified 08/28/24 11:58 Penicillins Allergy Intermediate Unknown Verified 08/28/24 11:58 propoxyphene (Darvocet-N 100) Allergy Intermediate Unknown Verified 08/28/24 11:58 Review of Systems Review of Systems: All systems reviewed & are unremarkable except as noted in HPI and below Constitutional: Constitutional: Reports no additional constitutional complaints Eyes: Eyes: Reports no additional eye complaints ENT: Reports system reviewed and no additional complaints, except as documented Cardiovascular: Cardiovascular: Reports no additional cardiovascular complaints Respiratory: Respiratory: Reports no additional respiratory complaints Gastrointestinal: Gastrointestinal: Reports no additional gastrointestinal complaints Genitourinary: Genitourinary: Reports no additional female genitourinary complaints Musculoskeletal: Musculoskeletal: Reports no additional musculoskeletal complaints Integumentary/Breasts: Skin/Breast: Reports system reviewed and no additional complaints, except as docu Neurologic: Reports system reviewed and no additional complaints, except as documented Psychiatric: Psychiatric: Reports no additional psychiatric complaints Endocrine: Endocrine: Reports no additional endocrine complaints Hematologic/Lymphatic: Hematologic/Lymphatic: Reports no additional hematologic/lymphatic complaints Allergic/Immunologic: Allergic/Immunologic: Reports no additional allergic/immunologic complaints PMFSH Past Medical History Medical History Abdominal pain Obesity Diabetic peripheral neuropathy Schizophrenia Nicotine dependence Methamphetamine abuse Hypertension associated with diabetes Hyperlipidemia associated with type 2 diabetes mellitus Tobacco dependence ADHD Depression RAJ (generalized anxiety disorder) Vitamin D deficiency Type 2 diabetes mellitus Bipolar disorder Surgical History Surgical History Status post open reduction with internal fixation of fracture (~2002) Right ankle fracture with subsequent removal hardware 4 years later History of bilateral tubal ligation (~2009) Hx of tonsillectomy (~1994) Family History Family History Mother Ovarian cancer Diabetes mellitus Multiple sclerosis Grandparent Ovarian cancer Father Heart disease Leukemia Social History Social History Social History: She has smoked as much as 2 packs of cigarettes per day. She started smoking when she was 18. She is down to 1 pack of cigarettes per day. She does not drink any alcohol. She smokes marijuana daily. She has smoked and snorted methamphetamines for the last 7 years. She denies any other illicit substance use. She lives with her significant other. She has 9 cats and 3 dogs at home. She has a pit bull, husky and hound dog. Smoking packs per day: 1.5 Smoking cigarettes per day: 30.0 Years smoked: 23 Smoking pack-years: 34.50 Smoking status: Current every day smoker Tobacco type: cigarettes Additional smoking assessment comments: Patient stated she use to smoke 2 packs a day Alcohol intake: never Substance use: current Substance use type: marijuana and methamphetamine Last use: 10/06/2021 marijuana, meth 10/10/2022 Lack of Transportation: YES Lack of Food: Sometimes True Current Housing: I Have Housing Concerned About Future Housing: Decline to Answer Difficulty Paying Gas/Electric Bills: YES Difficulty Paying for Meds: No Currently Unemployed: No Education: High School Diploma/GED Difficulty w/ Childcare or Family Care: No Additional living arrangements comments: Lives with her significant other. Additional occupation/education comments: On disability. Spiritual care concerns: No Exam Const: General: healthy appearing Nutritional Appearance: well nourished Orientation/consciousness: patient oriented x3 Limitations: no limitations Other: patient is not having her tweaking type changes when she is on drugs; patient looks appropriate and baseline at this time HENMT: Head: normal to inspection Ears: external ears normal Face/Nose/Sinus: Normal external nose present Eyes: Conjunctivae: conjunctivae normal Pupils: Equal, round and reactive pupils present EOM: EOMs intact bilaterally Neck: Neck: normal visual inspection Chest: Chest palpation & inspection: normal inspection of the chest Resp: Effort & Inspection: normal respiratory effort and not labored Auscultation: clear to auscultation bilaterally and no crackles Cardio: Rate: regular rate Rhythm: regular rhythm Heart sounds: no murmurs GI: Inspection: non-distended GI Palp: Yes Soft to palpation and No Tenderness to palpation present (GI) Auscultation: normal bowel sounds : General: Yes bladder normal to palpation Back/Spine/Pelvis: Back: no CVA tenderness Skin: General skin exam: normal color Rashes: no rashes Wounds: no wounds Neuro: General: patient oriented x3 Cranial nerves: Yes Nystagmus not present Speech: normal speech Gait exam (Neuro): Normal gait present Extrem: General: normal to inspection Psych: Mental Status: mental status grossly normal Affect: normal affect Attitude: cooperative Other: No suicide or homicide ideations. Course Vital Signs Vital signs: Vital Signs Temperature 36.4 C L 08/28/24 10:55 Pulse Rate 96 08/28/24 10:55 Respiratory Rate 20 08/28/24 10:55 Blood Pressure 138/83 08/28/24 10:55 Pulse Oximetry 97 08/28/24 10:55 Oxygen Delivery Room Air 08/28/24 10:55 Temperature 36.4 C L 08/28/24 10:55 Pulse Rate 96 08/28/24 10:55 Respiratory Rate 20 08/28/24 10:55 Blood Pressure 138/83 08/28/24 10:55 Pulse Oximetry 97 08/28/24 10:55 Oxygen Delivery Room Air 08/28/24 10:55 MDM - Anxiety MDM Narrative Medical decision making narrative: patient is a 44-year-old female with chronic anxiety and changing her psychiatrist this week. Patient needs 5 days of her Xanax. I did spend time talking about the ER not being able to refill on a regular basis. Patient understood. We will give 1 Xanax now and a 5 day supply. She will have a new psychiatrist in the next week. No suicide or homicide ideations. Discharge Plan Discharge Clinical Impression: Anxiety Patient Disposition: Home Condition: Stable Instructions: Anxiety (ED) Patient Language: Nicaraguan Prescriptions: New alprazolam [Xanax] 1 mg tablet 1 mg PO BID PRN (Reason: anxiety) Qty: 10 0RF No Action ondansetron 4 mg tablet,disintegrating 4 mg PO Q4H PRN (Reason: nausea and vomiting) 3 Days Qty: 10 0RF ziprasidone HCl 60 mg capsule See Rx Instructions .ROUTE .COMPLEX Qty: 180 0RF Dose Instruction: TAKE ONE TABLET BY MOUTH EVERY MORNING AND TAKE TWO TABLETS BY MOUTH EVERY EVENING Rx Instructions: TAKE ONE TABLET BY MOUTH EVERY MORNING AND TAKE TWO TABLETS BY MOUTH EVERY EVENING (DME) OneTouch Ultra Test Strip See Rx Instructions .ROUTE .COMPLEX Qty: 360 5RF Dose Instruction: TESTING 4 TIMES A DAY Rx Instructions: TESTING 4 TIMES A DAY (DME) lancets [TRUEplus Lancets] 33 gauge misc See Rx Instructions .ROUTE .COMPLEX Qty: 100 5RF Dose Instruction: DIRECTED. TESTING 4 TIMES A DAY DX:E11.9 Rx Instructions: DIRECTED. TESTING 4 TIMES A DAY DX:E11.9 dapagliflozin propanediol [Farxiga] 10 mg tablet See Rx Instructions .ROUTE .COMPLEX Qty: 90 3RF Dose Instruction: TAKE ONE TABLET BY MOUTH DAILY Rx Instructions: TAKE ONE TABLET BY MOUTH DAILY miconazole nitrate 200 mg suppository 200 mg vaginal QHS 3 Days Qty: 3 1RF (DME) blood-glucose meter [Blood Glucose Monitoring] Kit See Rx Instructions .Route Qty: 1 0RF Rx Instructions: As directed (DME) pen needle, diabetic [TRUEplus Pen Needle] 29 gauge x 1/2 needle See Rx Instructions .ROUTE .COMPLEX Qty: 100 5RF Dose Instruction: USING 3 TIMES A DAY Rx Instructions: USING 3 TIMES A DAY duloxetine 60 mg capsule,delayed release(DR/EC) See Rx Instructions .ROUTE .COMPLEX Qty: 180 3RF Dose Instruction: TAKE TWO CAPSULES BY MOUTH EVERY MORNING Rx Instructions: TAKE TWO CAPSULES BY MOUTH EVERY MORNING metformin 1,000 mg tablet See Rx Instructions .ROUTE .COMPLEX Qty: 180 3RF Dose Instruction: TAKE ONE TABLET BY MOUTH TWICE A DAY Rx Instructions: TAKE ONE TABLET BY MOUTH TWICE A DAY atenolol 50 mg tablet See Rx Instructions .ROUTE .COMPLEX Qty: 90 3RF Dose Instruction: TAKE ONE TABLET BY MOUTH DAILY Rx Instructions: TAKE ONE TABLET BY MOUTH DAILY gabapentin 100 mg capsule See Rx Instructions .ROUTE .COMPLEX Qty: 180 0RF Dose Instruction: TAKE ONE CAPSULE BY MOUTH IN THE MORNING AND TWO CAPSULES IN THE EVENING Rx Instructions: TAKE ONE CAPSULE BY MOUTH IN THE MORNING AND TWO CAPSULES IN THE EVENING nicotine 21 mg/24 hr patch 24 hour See Rx Instructions .ROUTE .COMPLEX Qty: 28 0RF Dose Instruction: ONE (1) PATCH TRANSDERMALLY DAILY; STEP ONE (1) Rx Instructions: ONE (1) PATCH TRANSDERMALLY DAILY; STEP ONE (1) simvastatin 40 mg tablet See Rx Instructions .ROUTE .COMPLEX Qty: 90 0RF Dose Instruction: TAKE ONE TABLET BY MOUTH DAILY Rx Instructions: TAKE ONE TABLET BY MOUTH DAILY alprazolam 2 mg tablet 2 mg PO BID PRN (Reason: anxiety) Qty: 20 0RF trazodone 100 mg tablet See Rx Instructions .ROUTE .COMPLEX Qty: 60 0RF Dose Instruction: TAKE TWO TABLETS BY MOUTH BEDTIME Rx Instructions: TAKE TWO TABLETS BY MOUTH BEDTIME hydrocodone-acetaminophen 5-325 mg tablet 0.5 tablet PO Q8H PRN (Reason: pain) Qty: 20 0RF Trulicity 1.5 mg/0.5 mL pen injector See Rx Instructions .ROUTE .COMPLEX Qty: 2 0RF Dose Instruction: INJECT ONE AND A HALF (1 & 1/2) ML SUBCUTANEOUSLY ONCE WEEKLY Rx Instructions: INJECT ONE AND A HALF (1 & 1/2) ML SUBCUTANEOUSLY ONCE WEEKLY Follow-up/Referrals: Clark Graff DO [Primary Care Provider] - Time of Disposition: 11:59
--- NOTE | 2024-08-28 11:54 | PC.NURSE ---
dr gregg in with pt to discuss plan of care.
[2024-08-28] MEDS: ALPRAZolam (*CRX) 0.5 MG TABLET 1 MG PO (12:02)
[2024-08-28 12:06] VITALS: BP 122/77; PULSE 89; RESP 20; TEMP 36.8; O2SAT 98
== END 2024-08-28 12:06 | disposition home or self-care (01) ==
PROVIDERS: Emergency Provider Emergency Medicine; PCP Family Medicine
DX: F41.9 Anxiety disorder, unspecified (principal); I10 Essential (primary) hypertension; E78.5 Hyperlipidemia, unspecified; E11.9 Type 2 diabetes mellitus without complications; F17.210 Nicotine dependence, cigarettes, uncomplicated
CPT/HCPCS: 99283; A9270

== ENCOUNTER 2024-09-26 14:29 | Emergency (ER) | payer OTHER, SELFPAY ==
--- OUTSIDE RECORDS SUMMARY | 2024-09-26 14:31 | XMS_ITS | Clinical Summary ---
Author Organization [facility] Address [address] [place] [address] Care Team Providers Care Casting Supervisor Name Role Phone Clark Graff DO Primary Care Provider [phone] Allergies Active Allergy Reactions Criticality Noted Date [...] on file Legal Sex Female 10:42 PM PROFESSOR OF EDUCATION Gender Identity Not on file Sexual Orientation [...] 5:59 PM CDT Height 180.3 cm (5' 11) 11/25/2023 5:59 PM CDT Body Mass Index [...] Years) (1 of 2 - PCV) 2001 HPV Vaccines (1 - 3-dose SCD M series) 2009 Mammogram Screening 2022 COVID-19 Vaccine ( - 2023-2 5 season) 2023 Cervical Cancer Screening Pa p with HPV Testing (Age 30 to 64) Every 5 Years 04/02/2027 04/02/2022 Cervical Cancer Screening with HPV 04/02/2027 Meningococcal B Vaccine Aged Out No l [...] PAPILLOMAVIRUS, HIGH-RISK TYPES Routine 04/02/2022 8:00 AM PROFESSOR OF EDUCATION from Last 3 Months or Most Recently Relevant to Health Maintenance Results * HUMAN PAPILLOMAVIRUS, HIGH-RISK TYPES (04/02/2022 8:00 AM PROFESSOR OF EDUCATION) SPEC DESCRIPTION CERVIX 04/04/19 2:54 PM PROFESSOR OF EDUCATION [facility] HPV DNA HIGH RISK NEGATIVE NEGATIVE 04/04/2022 7:19 PM PROFESSOR OF EDUCATION [facility] Comment:SEE CYTOLOGY REPORT 04/02/2022 8:00 AM PROFESSOR OF EDUCATION Marcela Lowe PARKING GARAGE MANAGER PATHOLOGY/CYTOLOGY ORDERA BLES Final Result [facility] [address] [place] [address], from Last 3 Months or Most Recently Relevant to Health Maintenance Additional Health Concerns Infection Onset Date Last Indicated MRSA 03/16/2018 03/16/2018 Insurance [place] Care Teams Casting Supervisor Relationship Specialty Start Date End Date Clark Graff DO [address] [place] [address] PCP - General FAMILY PRACTICE 01/17/20
--- OUTSIDE RECORDS SUMMARY | 2024-09-26 14:31 | XMS_ITS ---
Author Organization [facility] Address [address] [place] [address] Care Team Providers Care Change Management Specialist Name Role Phone Lito Mathew Primary Care Provider [phone] Marichuy Verdugo [phone] REASON FOR VISIT ON CRU--ZOOM Encounters Encounter Location Date Provider Diagnosis [facility] [place] [address] 06/10/2023 Marichuy Verdugo Plan Of Treatment No Information Progress Notes * Rudi FRANKELDOB: 3 (44 yo F)Acc No.[id number]:06/10/2023 UNLOCKED PROGRESS NOTE Patient: Rudi LARA Provider: Cynthia Verdugo DNP, ITZEL-SILVER, BUSINESS WRITER :1980 A ge:43 Y S ex:Female Date:06/10/2023 Address:[address] [place], [place] [id number] Pcp:Lito Mathew Subjective: * Chief Complaints: * 1 . ON CRU--ZOOM. * Medical History: Objective: * Vitals: Assessment: Plan: * Treatment: * * Electronic signature of Enedina Verdugo on 09/26/2024 at 02:31 PM CDT Sign off status: Pending * Provider: Cynthia Verdugo DNP, GALAP-BC, BUSINESS WRITER Date: 06/10/2023 Generated for Printing/Faxing/eTransmitting on: 09/26/2024 02:31 PM CDT
--- OUTSIDE RECORDS SUMMARY | 2024-09-26 14:31 | XMS_ITS | Patient Health Record ---
Author Organization [facility] Address [address] [place] [address] Care Team Providers Care Lean Process Deployment Consultant Name Role Phone Lito Mathew Primary Care Provider [phone] Barbara Garcia Unavailable [phone] Allergies Allergen (clinical drug ingredient) Drug/Non Drug Allergy documented on EMR Reaction Allergy Type Onset Date Status Latex Latex Unknown Allergy Active Penicillin Unknown Drug Allergy Active Reason For Referral No Information Medications Medication SIG (Take, Route, Fr equency, Duration) Notes Start Date End Date Status Ziprasidone HCl 60 MG 1 capsule with bay d Orally Twice a day Active metFORMIN HCl 1000 MG 1 tablet with a me al Orally twice a day Active Gabapentin 100 MG 1 capsule Orally thr ee times daily Active Atenolol 50 MG 1 tablet Orally Once a day Active Trulicity 1.5 MG/0.5ML as directed Subcutaneous Active hydrOXYzine HCl 25 MG 1 tablet as needed Orally Once a day Active traZODone HCl 100 MG 1 tablet at bedtime Orally Once a day Active Multivitamin - 1 tablet Orally Once a day; Duration: 30 day(s) Active Social History Tobacco Use: Social History Observation Description Date Details (start date - stop date) Current Smoker NA - NA Dont use, Tobacco Use/Smoking Question Answer Notes Are you a current every day smoker Problems Problem Type SNOMED Code ICD Code Onset Dates Problem Status W/U Status Risk Notes Problem Morbid obesity (disorder) (527986539) Morbid (severe) obesity due to excess calories (E66.01) Active confirmed Problem Tobacco user (647318058) Nicotine dependence, unspecified, uncomplicated (F17.200) Active confirmed Problem Methamphetamine dependence (226807672) Methamphetamine addiction (F15.20) Active confirmed Problem Constipation (81075782) Constipation, unspecified constipation type (K59.00) 08/03/19 22 Active confirmed Problem Hyperlipidaemia (95278623) Hyperlipidemia, unspecified hyperlipidemia type (E78.5) 08/03/19 22 Active confirmed Problem Bipolar disorder (02690527) Bipolar affective disorder, remission status unspecified (F31.9) 08/03/19 22 Active confirmed Problem Essential hypertension (81019930) Hypertension, unspecified type (I10) 08/03/19 22 Active confirmed Problem Polyneuropathy due to type 2 diabetes mellitus (763182793) 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.42) 08/03/19 22 Active confirmed Encounters Encounter Location Date Provider Diagnosis [address] [address] 01/27/2024 Barbara Garcia Bipolar affective disorder, remission status unspecified F31.[address] [address] 03/09/2024 Barbara Jose Bipolar affective disorder, remission status unspecified F31.9 Assessments Encounter Date Diagnosis (ICD Code) Assessment Notes Treatment Notes Treatment Clinical Notes Section Notes 01/27/2024 Bipolar affective disorder, remission status unspecified (ICD-10 - F31.9) 03/09/2024 Bipolar affective disorder, remission status unspecified (ICD-10 - F31.9) Plan Of Treatment No Information Insurance Providers Payer Name Payer Address Payer Phone Subscriber Number Group Number Insured Name Patient Relationship to Insured Coverage Start Date Coverage End Date [facility] Attn Claims Department [address] [place] [address] [phone] [id number] Rudi Frankel Self - patient is the insured 2 [facility] Attn Claims Department [address] [place] [address] [phone] [id number] Rudi Frankel Self - patient is the insured 3 Medical (General) History Medical History History ICD Code type 2 diabetic hypertension hypelipidemia bipolar effective disorder nicotine dependency meth use disorder Surgical History Surgery Date(Month/Year) Hospitalization History Reason Date(Month/Year)
--- OUTSIDE RECORDS SUMMARY | 2024-09-26 14:31 | XMS_ITS | Encounter Summary ---
Author Organization [facility] Address [address] [place] [address] Care Team Providers Care Wholesale Parts Salesperson Name Role Phone Clark Graff DO Primary Care Provider [phone] Encounter Details Date Type Department Care Team (Late st Contact Info) Description 08/07/2018 Abstract [facility] CONVERSION [address] [place] [address] , Generic Conversion, Social History Tobacco Use Types Packs/Day Years Used Date Smoking Tobacco: Never Assessed Comments Unknown Sex and Gender Information Value Date Recorded Sex Assigned at Not on file Legal Sex Female 10:42 PM PET STYLIST Gender Identity Not on file Sexual Orientation Not on file documented as of this encounter Plan of Treatment Not on file documented as of this encounter Visit Diagnoses Not on filedocumented in this encounter Additional Health Concerns Infection Onset Date Last Indicated Resolved Time MRSA 03/16/2018 03/16/2018 documented as of this encounter Care Teams Wholesale Parts Salesperson Relationship Specialty Start Date End Date Clark Graff DO [address] [place] [address] PCP - General FAMILY PRACTICE 01/17/20 documented as of this encounter
[2024-09-26 14:37] VITALS: BP 132/76; PULSE 104; RESP 16; TEMP 36.7; O2SAT 98
--- NOTE | 2024-09-26 14:43 | ED.ANXIETY ---
HPI - Anxiety General Chief Complaint: Anxiety Stated Complaint: anxiety Time Seen by Provider: 09/26/24 14:32 History of Present Illness HPI narrative: Pt started on naltexone this weekend for her substance abuse and says she doesn't know if it is making her anxiety worse but she is very anxious. Pt denies using meth or alcohol. Related Data Allergies Allergy/AdvReac Type Severity Reaction Status Date / Time fluconazole Allergy Severe Vomiting, Verified 09/26/24 14:51 DIZZINESS, DIARRHEA latex Allergy Intermediate Unknown Verified 09/26/24 14:51 Penicillins Allergy Intermediate Unknown Verified 09/26/24 14:51 propoxyphene (Darvocet-N 100) Allergy Intermediate Unknown Verified 09/26/24 14:51 Review of Systems Review of Systems: All systems reviewed & are unremarkable except as noted in HPI and below PMFSH Past Medical History Medical History Abdominal pain Obesity Diabetic peripheral neuropathy Schizophrenia Nicotine dependence Methamphetamine abuse Hypertension associated with diabetes Hyperlipidemia associated with type 2 diabetes mellitus Tobacco dependence ADHD Depression RAJ (generalized anxiety disorder) Vitamin D deficiency Type 2 diabetes mellitus Bipolar disorder Surgical History Surgical History Status post open reduction with internal fixation of fracture (~2002) Right ankle fracture with subsequent removal hardware 4 years later History of bilateral tubal ligation (~2009) Hx of tonsillectomy (~1994) Family History Family History Mother Ovarian cancer Diabetes mellitus Multiple sclerosis Grandparent Ovarian cancer Father Heart disease Leukemia Social History Social History Social History: She has smoked as much as 2 packs of cigarettes per day. She started smoking when she was 18. She is down to 1 pack of cigarettes per day. She does not drink any alcohol. She smokes marijuana daily. She has smoked and snorted methamphetamines for the last 7 years. She denies any other illicit substance use. She lives with her significant other. She has 9 cats and 3 dogs at home. She has a pit bull, husky and hound dog. Smoking packs per day: 1.5 Smoking cigarettes per day: 30.0 Years smoked: 23 Smoking pack-years: 34.50 Smoking status: Current every day smoker Tobacco type: cigarettes Additional smoking assessment comments: Patient stated she use to smoke 2 packs a day Alcohol intake: never Substance use: current Substance use type: unknown Last use: 10/06/2021 marijuana, meth 10/10/2022 Lack of Transportation: YES Lack of Food: Sometimes True Current Housing: I Have Housing Concerned About Future Housing: Decline to Answer Difficulty Paying Gas/Electric Bills: YES Difficulty Paying for Meds: No Currently Unemployed: No Education: High School Diploma/GED Difficulty w/ Childcare or Family Care: No Additional living arrangements comments: Lives with her significant other. Additional occupation/education comments: On disability. Spiritual care concerns: No Exam Const: General: no acute distress Nutritional Appearance: obese Orientation/consciousness: patient oriented x3 Limitations: no limitations Eyes: EOM: EOMs intact bilaterally Neck: Neck: normal visual inspection Resp: Effort & Inspection: normal respiratory effort Auscultation: clear to auscultation bilaterally Cardio: Rate: regular rate Rhythm: regular rhythm GI: GI Palp: Yes Soft to palpation Skin: General skin exam: normal color Neuro: General: patient oriented x3, moves all extremities, no meningeal signs and no focal motor deficits Speech: normal speech Extrem: General: no clubbing, cyanosis or edema Psych: Affect: Anxious affect present Course Vital Signs Vital signs: Vital Signs Temperature 98.0 F 09/26/24 14:37 Pulse Rate 104 H 09/26/24 14:37 Respiratory Rate 16 09/26/24 14:37 Blood Pressure 132/76 09/26/24 14:37 Pulse Oximetry 98 09/26/24 14:37 Oxygen Delivery Room Air 09/26/24 14:37 Temperature 98.0 F 09/26/24 14:37 Pulse Rate 99 09/26/24 15:30 Respiratory Rate 16 09/26/24 15:30 Blood Pressure 115/77 09/26/24 15:30 Pulse Oximetry 97 09/26/24 15:30 Oxygen Delivery Room Air 09/26/24 15:30 MDM - Anxiety MDM Narrative Medical decision making narrative: Pt presenting with anxiety attack after starting new medicine. will try shot of ativan. Pt has history of substance abuse and anxiety. Pt feels better after ativan and wants to go home. Discharge Plan Discharge Clinical Impression: Anxiety Patient Disposition: Home Condition: Improved Instructions: Antibiotic Form, Anxiety (ED) Patient Language: Argentine Prescriptions: No Action ondansetron 4 mg tablet,disintegrating 4 mg PO Q4H PRN (Reason: nausea and vomiting) 3 Days Qty: 30 0RF clotrimazole 1 % cream 1 applic topical Q12H 28 Days Qty: 45 0RF naltrexone 50 mg tablet 50 mg PO DAILY Qty: 90 0RF (DME) OneTouch Ultra Test Strip See Rx Instructions .ROUTE .COMPLEX Qty: 360 5RF Dose Instruction: TESTING 4 TIMES A DAY Rx Instructions: TESTING 4 TIMES A DAY (DME) lancets [TRUEplus Lancets] 33 gauge misc See Rx Instructions .ROUTE .COMPLEX Qty: 100 5RF Dose Instruction: DIRECTED. TESTING 4 TIMES A DAY DX:E11.9 Rx Instructions: DIRECTED. TESTING 4 TIMES A DAY DX:E11.9 dapagliflozin propanediol [Farxiga] 10 mg tablet See Rx Instructions .ROUTE .COMPLEX Qty: 90 3RF Dose Instruction: TAKE ONE TABLET BY MOUTH DAILY Rx Instructions: TAKE ONE TABLET BY MOUTH DAILY (DME) blood-glucose meter [Blood Glucose Monitoring] Kit See Rx Instructions .Route Qty: 1 0RF Rx Instructions: As directed (DME) pen needle, diabetic [TRUEplus Pen Needle] 29 gauge x 1/2 needle See Rx Instructions .ROUTE .COMPLEX Qty: 100 5RF Dose Instruction: USING 3 TIMES A DAY Rx Instructions: USING 3 TIMES A DAY duloxetine 60 mg capsule,delayed release(DR/EC) See Rx Instructions .ROUTE .COMPLEX Qty: 180 3RF Dose Instruction: TAKE TWO CAPSULES BY MOUTH EVERY MORNING Rx Instructions: TAKE TWO CAPSULES BY MOUTH EVERY MORNING metformin 1,000 mg tablet See Rx Instructions .ROUTE .COMPLEX Qty: 180 3RF Dose Instruction: TAKE ONE TABLET BY MOUTH TWICE A DAY Rx Instructions: TAKE ONE TABLET BY MOUTH TWICE A DAY atenolol 50 mg tablet See Rx Instructions .ROUTE .COMPLEX Qty: 90 3RF Dose Instruction: TAKE ONE TABLET BY MOUTH DAILY Rx Instructions: TAKE ONE TABLET BY MOUTH DAILY simvastatin 40 mg tablet See Rx Instructions .ROUTE .COMPLEX Qty: 90 0RF Dose Instruction: TAKE ONE TABLET BY MOUTH DAILY Rx Instructions: TAKE ONE TABLET BY MOUTH DAILY Trulicity 1.5 mg/0.5 mL pen injector See Rx Instructions .ROUTE .COMPLEX Qty: 2 0RF Dose Instruction: INJECT ONE AND A HALF (1 & 1/2) MG SUBCUTANEOUSLY ONCE WEEKLY Rx Instructions: INJECT ONE AND A HALF (1 & 1/2) MG SUBCUTANEOUSLY ONCE WEEKLY gabapentin 100 mg capsule See Rx Instructions .ROUTE .COMPLEX Qty: 180 0RF Dose Instruction: TAKE ONE CAPSULE BY MOUTH IN THE MORNING AND TWO CAPSULES IN THE EVENING Rx Instructions: TAKE ONE CAPSULE BY MOUTH IN THE MORNING AND TWO CAPSULES IN THE EVENING alprazolam 2 mg tablet 2 mg PO BID PRN (Reason: anxiety) Qty: 20 0RF trazodone 100 mg tablet See Rx Instructions .ROUTE .COMPLEX Qty: 60 0RF Dose Instruction: TAKE TWO TABLETS BY MOUTH AT BEDTIME Rx Instructions: TAKE TWO TABLETS BY MOUTH AT BEDTIME ziprasidone HCl 60 mg capsule See Rx Instructions .ROUTE .COMPLEX Qty: 180 0RF Dose Instruction: TAKE ONE CAPSULE BY MOUTH EVERY MORNING AND TWO CASPULES EVERY EVENING Rx Instructions: TAKE ONE CAPSULE BY MOUTH EVERY MORNING AND TWO CASPULES EVERY EVENING Follow-up/Referrals: Clark Graff, [Primary Care Provider] -
[2024-09-26] MEDS: LORazepam INJ (*CRX) 2 MG/ML VIAL 1 MG IM (14:45)
--- OUTSIDE RECORDS SUMMARY | 2024-09-26 14:51 | XMS_ITS | Encounter Summary ---
Author Organization [facility] Address [address] [place] [address] Care Team Providers Care Price Clerk Name Role Phone Clark Graff DO Primary Care Provider [phone] Encounter Details Date Type Department Care Team (Late st Contact Info) Description 08/07/2018 Abstract SFL CONVERSION [address] [place] [address] , Generic Conversion, Social History Tobacco Use Types Packs/Day Years Used Date Smoking Tobacco: Never Assessed Comments Unknown Sex and Gender Information Value Date Recorded Sex Assigned at Not on file Legal Sex Female 10:42 PM CELL POURER Gender Identity Not on file Sexual Orientation Not on file documented as of this encounter Plan of Treatment Not on file documented as of this encounter Visit Diagnoses Not on filedocumented in this encounter Additional Health Concerns Infection Onset Date Last Indicated Resolved Time MRSA 03/16/2018 03/16/2018 documented as of this encounter Care Teams Price Clerk Relationship Specialty Start Date End Date Clark Graff DO [address] [place] [address] PCP - General FAMILY PRACTICE 01/17/20 documented as of this encounter
--- OUTSIDE RECORDS SUMMARY | 2024-09-26 14:52 | XMS_ITS | Clinical Summary ---
Author Organization [facility] Address [address] [place] [address] Care Team Providers Care Manager Validation Name Role Phone Clark Graff DO Primary Care Provider [phone] Allergies Active Allergy Reactions Criticality Noted Date [...] on file Legal Sex Female 10:42 PM DAIRY MANAGER Gender Identity Not on file Sexual [...] PAPILLOMAVIRUS, HIGH-RISK TYPES Routine 04/02/2022 8:00 AM DAIRY MANAGER from Last 3 Months or Most Recently Relevant to Health Maintenance Results * HUMAN PAPILLOMAVIRUS, HIGH-RISK TYPES (04/02/2022 8:00 AM DAIRY MANAGER) SPEC DESCRIPTION CERVIX 04/04/19 2:54 PM DAIRY MANAGER [facility] HPV DNA HIGH RISK NEGATIVE NEGATIVE 04/04/2022 7:19 PM DAIRY MANAGER [facility] Comment:SEE CYTOLOGY REPORT 04/02/2022 8:00 AM DAIRY MANAGER Marcela Lowe TRAM OPERATOR PATHOLOGY/CYTOLOGY ORDERA BLES Final Result [facility] [address] [place] [address], from Last 3 Months or Most Recently Relevant to Health Maintenance Additional Health Concerns Infection Onset Date Last Indicated MRSA 03/16/2018 03/16/2018 Insurance [place] Care Teams Manager Validation Relationship Specialty Start Date End Date Clark Graff DO [address] [place] [address] PCP - General FAMILY PRACTICE 01/17/20
[2024-09-26 15:00] VITALS: BP 123/79; PULSE 98; RESP 18; O2SAT 96
[2024-09-26 15:30] VITALS: BP 115/77; PULSE 99; RESP 16; O2SAT 97
== END 2024-09-26 16:06 | disposition home or self-care (01) ==
PROVIDERS: Emergency Provider Emergency Medicine; PCP Family Medicine
DX: F41.9 Anxiety disorder, unspecified (principal); F17.210 Nicotine dependence, cigarettes, uncomplicated; F15.90 Other stimulant use, unspecified, uncomplicated
CPT/HCPCS: 96372; 99283; J2060

== ENCOUNTER 2024-10-02 13:48 | Emergency (ER) | payer OTHER, SELFPAY ==
--- OUTSIDE RECORDS SUMMARY | 2024-10-02 13:50 | XMS_ITS | Clinical Summary ---
Author Organization [facility] Address [address] [place] [address] Care Team Providers Care Mantel Craftsman Name Role Phone Clark Graff DO Primary Care Provider [phone] Allergies Active Allergy Reactions Criticality Noted Date [...] on file Legal Sex Female 10:42 PM DENIAL RESOLUTION SPECIALIST Gender Identity Not on file Sexual [...] PAPILLOMAVIRUS, HIGH-RISK TYPES Routine 04/02/2022 8:00 AM DENIAL RESOLUTION SPECIALIST from Last 3 Months or Most Recently Relevant to Health Maintenance Results * HUMAN PAPILLOMAVIRUS, HIGH-RISK TYPES (04/02/2022 8:00 AM DENIAL RESOLUTION SPECIALIST) SPEC DESCRIPTION CERVIX 04/04/19 2:54 PM DENIAL RESOLUTION SPECIALIST [facility] HPV DNA HIGH RISK NEGATIVE NEGATIVE 04/04/2022 7:19 PM DENIAL RESOLUTION SPECIALIST [facility] Comment:SEE CYTOLOGY REPORT 04/02/2022 8:00 AM DENIAL RESOLUTION SPECIALIST Marcela Lowe ELEVATOR EXAMINER AND ADJUSTER PATHOLOGY/CYTOLOGY ORDERA BLES Final Result [facility] [address] [place] [address], from Last 3 Months or Most Recently Relevant to Health Maintenance Additional Health Concerns Infection Onset Date Last Indicated MRSA 03/16/2018 03/16/2018 Insurance [place] Care Teams Mantel Craftsman Relationship Specialty Start Date End Date Clark Graff DO [address] [place] [address] PCP - General FAMILY PRACTICE 01/17/20
--- OUTSIDE RECORDS SUMMARY | 2024-10-02 13:50 | XMS_ITS ---
Author Organization [facility] Address [address] [place] [address] Care Team Providers Care Billet Bed Operator Name Role Phone Lito Mathew Primary Care Provider [phone] Marichuy Verdugo [phone] REASON FOR VISIT ON CRU--ZOOM Encounters Encounter Location Date Provider Diagnosis [facility] [address] 06/10/2023 Marichuy Verdugo Plan Of Treatment No Information Progress Notes * Rudi FRANKELDOB: 3 (44 yo F)Acc No.[id number]:06/10/2023 UNLOCKED PROGRESS NOTE Patient: Rudi LARA Provider: Cynthia Verdugo DNP, ITZEL-SILVER, PAINTING DEPARTMENT SUPERVISOR :1980 A ge:43 Y S ex:Female Date:06/10/2023 Address:[address] [place], [place] [address] Pcp:Lito Mathew Subjective: * Chief Complaints: * 1 . ON CRU--ZOOM. * Medical History: Objective: * Vitals: Assessment: Plan: * Treatment: * * Electronic signature of Enedina Verdugo on 10/02/2024 at 01:50 PM CDT Sign off status: Pending * Provider: Cynthia Verdugo DNP, GALAP-BC, PAINTING DEPARTMENT SUPERVISOR Date: 06/10/2023 Generated for Printing/Faxing/eTransmitting on: 10/02/2024 01:50 PM CDT
--- OUTSIDE RECORDS SUMMARY | 2024-10-02 13:50 | XMS_ITS | Patient Health Record ---
[facility] Address [address] [place] [address] Care Team Providers Care Mobile Development Manager Name Role Phone Lito Mathew Primary Care Provider [phone] Barbara Garcia Unavailable [phone] Allergies Allergen (clinical drug ingredient) Drug/Non Drug [...] Status Risk Notes Problem Morbid obesity (disorder) (980184980) Morbid (severe) obesity due to excess calories (E66.01) Active confirmed Problem Tobacco user (699279821) Nicotine dependence, unspecified, uncomplicated (F17.200) Active confirmed Problem Methamphetamine dependence (221240064) Methamphetamine addiction (F15.20) Active confirmed Problem Constipation (89609837) Constipation, unspecified constipation type (K59.00) 08/03/19 22 Active confirmed Problem Hyperlipidaemia (80828848) Hyperlipidemia, unspecified hyperlipidemia type (E78.5) 08/03/19 22 Active confirmed Problem Bipolar disorder (71116503) Bipolar affective disorder, remission status unspecified (F31.9) 08/03/19 22 Active confirmed Problem Essential hypertension (24177298) Hypertension, unspecified type (I10) 08/03/19 22 Active confirmed Problem Polyneuropathy due to type 2 diabetes mellitus (124372915) 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.42) 08/03/19 22 Active confirmed Encounters Encounter Location Date Provider Diagnosis [address] [address] 01/27/2024 Barbara Sanyamini Bipolar affective disorder, remission status unspecified F31.[address] [address] 03/09/2024 Barbara Sanyamini Bipolar affective disorder, remission status unspecified F31.9 Assessments Encounter Date Diagnosis (ICD Code) Assessment Notes Treatment Notes Treatment Clinical Notes Section Notes 03/09/2024 Bipolar affective disorder, remission status unspecified (ICD-10 - F31.9) 01/27/2024 Bipolar affective disorder, remission status unspecified (ICD-10 - F31.9) Plan Of Treatment No Information Insurance Providers Payer Name Payer Address Payer Phone Subscriber Number Group Number Insured Name Patient Relationship to Insured Coverage Start Date Coverage End Date [facility] Attn Claims Department [address] [place] [address] [phone] [id number] Rudi Frankel Self - patient is the insured 2 [facility] [employer] Att[employer] Claims Department [address] [place] [address] [phone] [id number] Rudi Frankel Self - patient is the insured 3 Medical (General) History Medical History History ICD Code type 2 diabetic hypertension hypelipidemia bipolar effective disorder nicotine dependency meth use disorder Surgical History Surgery Date(Month/Year) Hospitalization History Reason Date(Month/Year)
--- OUTSIDE RECORDS SUMMARY | 2024-10-02 13:50 | XMS_ITS | Encounter Summary ---
Author Organization [facility] Address [address] [place] [address] Care Team Providers Care Fresh Foods Technician Name Role Phone Clark Graff DO Primary Care Provider [phone] Encounter Details Date Type Department Care Team (Late st Contact Info) Description 08/07/2018 Abstract SFL CONVERSION [address] [place] [place] [address] , Generic Conversion, Social History Tobacco Use Types Packs/Day Years Used Date Smoking Tobacco: Never Assessed Comments Unknown Sex and Gender Information Value Date Recorded Sex Assigned at Not on file Legal Sex Female 10:42 PM PUTTY MAKER Gender Identity Not on file Sexual Orientation Not on file documented as of this encounter Plan of Treatment Not on file documented as of this encounter Visit Diagnoses Not on filedocumented in this encounter Additional Health Concerns Infection Onset Date Last Indicated Resolved Time MRSA 03/16/2018 03/16/2018 documented as of this encounter Care Teams Fresh Foods Technician Relationship Specialty Start Date End Date Clark Graff DO [address] [place] [address] PCP - General FAMILY PRACTICE 01/17/20 documented as of this encounter
--- NOTE | 2024-10-02 13:52 | ED.PSYCH ---
HPI - Psych General Chief Complaint: Anxiety Stated Complaint: anxiety Time Seen by Provider: 10/02/24 13:50 Source: patient Mode of arrival: ambulatory Limitations: no limitations History of Present Illness HPI Narrative: Patient is a 44-year-old female who presents to the emergency room for acute stress and anxiety with panic at this time. She comes to the ER often for similar complaints. He does not have any suicide or homicide ideations today. She has run out of her Xanax at this time and is due in 5 days. She has been off methamphetamines for 14 days and sober now. complaint: other ( Out of her Xanax and having panic and anxiety) Onset (ago): day(s) ( 1) Duration: constant History of same: Yes Relieving factors: medication ( Xanax helps) Exacerbating factors: drug use ( typically methamphetamine makes it worse but at this time she is much calmer than normal when on drugs; currently she is sober from methamphetamine use) Context: recent drug abuse ( currently 14 days sober of methamphetamines) and not taking psychiatric medications ( out of her Xanax and her refill is due in 5 days) Associated psychiatric symptoms: other ( acute anxiety and panic) Associated symptoms: denies other symptoms Treatments prior to arrival: none Related Data Allergies Allergy/AdvReac Type Severity Reaction Status Date / Time fluconazole Allergy Severe Vomiting, Verified 09/26/24 14:51 DIZZINESS, DIARRHEA latex Allergy Intermediate Unknown Verified 09/26/24 14:51 Penicillins Allergy Intermediate Unknown Verified 09/26/24 14:51 propoxyphene (Darvocet-N 100) Allergy Intermediate Unknown Verified 09/26/24 14:51 Review of Systems Review of Systems: All systems reviewed & are unremarkable except as noted in HPI and below Constitutional: Constitutional: Reports no additional constitutional complaints Eyes: Eyes: Reports no additional eye complaints ENT: Reports system reviewed and no additional complaints, except as documented Cardiovascular: Cardiovascular: Reports no additional cardiovascular complaints Respiratory: Respiratory: Reports no additional respiratory complaints Gastrointestinal: Gastrointestinal: Reports no additional gastrointestinal complaints Genitourinary: Genitourinary: Reports no additional female genitourinary complaints Musculoskeletal: Musculoskeletal: Reports no additional musculoskeletal complaints Integumentary/Breasts: Skin/Breast: Reports system reviewed and no additional complaints, except as docu Neurologic: Reports system reviewed and no additional complaints, except as documented Psychiatric: Psychiatric: Reports no additional psychiatric complaints Endocrine: Endocrine: Reports no additional endocrine complaints Hematologic/Lymphatic: Hematologic/Lymphatic: Reports no additional hematologic/lymphatic complaints Allergic/Immunologic: Allergic/Immunologic: Reports no additional allergic/immunologic complaints PMFSH Past Medical History Medical History Abdominal pain Obesity Diabetic peripheral neuropathy Schizophrenia Nicotine dependence Methamphetamine abuse Hypertension associated with diabetes Hyperlipidemia associated with type 2 diabetes mellitus Tobacco dependence ADHD Depression RAJ (generalized anxiety disorder) Vitamin D deficiency Type 2 diabetes mellitus Bipolar disorder Surgical History Surgical History Status post open reduction with internal fixation of fracture (~2002) Right ankle fracture with subsequent removal hardware 4 years later History of bilateral tubal ligation (~2009) Hx of tonsillectomy (~1994) Family History Family History Mother Ovarian cancer Diabetes mellitus Multiple sclerosis Grandparent Ovarian cancer Father Heart disease Leukemia Social History Social History Social History: She has smoked as much as 2 packs of cigarettes per day. She started smoking when she was 18. She is down to 1 pack of cigarettes per day. She does not drink any alcohol. She smokes marijuana daily. She has smoked and snorted methamphetamines for the last 7 years. She denies any other illicit substance use. She lives with her significant other. She has 9 cats and 3 dogs at home. She has a pit bull, husky and hound dog. Smoking packs per day: 1.5 Smoking cigarettes per day: 30.0 Years smoked: 23 Smoking pack-years: 34.50 Smoking status: Current every day smoker Tobacco type: cigarettes Additional smoking assessment comments: Patient stated she use to smoke 2 packs a day Alcohol intake: never Substance use: current Substance use type: marijuana Last use: 10/06/2021 marijuana, meth 10/10/2022 Lack of Transportation: YES Lack of Food: Sometimes True Current Housing: I Have Housing Concerned About Future Housing: Decline to Answer Difficulty Paying Gas/Electric Bills: YES Difficulty Paying for Meds: No Currently Unemployed: No Education: High School Diploma/GED Difficulty w/ Childcare or Family Care: No Additional living arrangements comments: Lives with her significant other. Additional occupation/education comments: On disability. Spiritual care concerns: No Exam Const: General: healthy appearing Nutritional Appearance: well nourished Orientation/consciousness: patient oriented x3 Other: acutely anxious and panic but consolable HENMT: Head: normal to inspection Ears: external ears normal Face/Nose/Sinus: Normal external nose present Eyes: Conjunctivae: conjunctivae normal Pupils: Equal, round and reactive pupils present EOM: EOMs intact bilaterally Neck: Neck: normal visual inspection Chest: Chest palpation & inspection: normal inspection of the chest Resp: Effort & Inspection: normal respiratory effort and not labored Auscultation: clear to auscultation bilaterally and no crackles Cardio: Rate: regular rate Rhythm: regular rhythm Heart sounds: no murmurs GI: Inspection: non-distended GI Palp: Yes Soft to palpation and No Tenderness to palpation present (GI) Auscultation: normal bowel sounds : General: Yes bladder normal to palpation Back/Spine/Pelvis: Back: no CVA tenderness Skin: General skin exam: normal color Rashes: no rashes Wounds: no wounds Neuro: General: patient oriented x3, moves all extremities and no meningeal signs Extrem: General: normal to inspection Psych: Affect: No normal affect Attitude: cooperative Other: patient acutely anxious and panic but consolable; she does not appear to be on drugs or alcohol at this time; no suicide or homicide ideation Course Vital Signs Vital signs: Vital Signs Temperature 36.7 C 10/02/24 13:53 Pulse Rate 120 H 10/02/24 13:53 Respiratory Rate 18 10/02/24 13:53 Blood Pressure 143/92 H 10/02/24 13:53 Pulse Oximetry 99 10/02/24 13:53 Oxygen Delivery Room Air 10/02/24 13:53 Temperature 36.7 C 10/02/24 13:53 Pulse Rate 84 10/02/24 14:17 Respiratory Rate 18 10/02/24 14:17 Blood Pressure 119/64 10/02/24 14:17 Pulse Oximetry 96 10/02/24 14:17 Oxygen Delivery Room Air 10/02/24 14:17 MDM - Psych MDM Narrative Medical decision making narrative: patient is a 44-year-old female with acute anxiety here for assistance. We will give her a shot of Ativan 1 mg IM x1. I will refill her prescription for 5 days only at this time. It is more dangers to go through withdrawal for somebody that uses chronically then any concerns for benzodiazepine abuse at this time. Discharge Plan Discharge Clinical Impression: Acute stress reaction Patient Disposition: Home Condition: Stable Instructions: Anxiety (ED) Patient Language: Serbian Prescriptions: New alprazolam [Xanax] 1 mg tablet 1 mg PO BID PRN (Reason: anxiety) Qty: 10 0RF No Action ondansetron 4 mg tablet,disintegrating 4 mg PO Q4H PRN (Reason: nausea and vomiting) 3 Days Qty: 30 0RF clotrimazole 1 % cream 1 applic topical Q12H 28 Days Qty: 45 0RF (DME) OneTouch Ultra Test Strip See Rx Instructions .ROUTE .COMPLEX Qty: 360 5RF Dose Instruction: TESTING 4 TIMES A DAY Rx Instructions: TESTING 4 TIMES A DAY (DME) lancets [TRUEplus Lancets] 33 gauge misc See Rx Instructions .ROUTE .COMPLEX Qty: 100 5RF Dose Instruction: DIRECTED. TESTING 4 TIMES A DAY DX:E11.9 Rx Instructions: DIRECTED. TESTING 4 TIMES A DAY DX:E11.9 dapagliflozin propanediol [Farxiga] 10 mg tablet See Rx Instructions .ROUTE .COMPLEX Qty: 90 3RF Dose Instruction: TAKE ONE TABLET BY MOUTH DAILY Rx Instructions: TAKE ONE TABLET BY MOUTH DAILY (DME) blood-glucose meter [Blood Glucose Monitoring] Kit See Rx Instructions .Route Qty: 1 0RF Rx Instructions: As directed (DME) pen needle, diabetic [TRUEplus Pen Needle] 29 gauge x 1/2 needle See Rx Instructions .ROUTE .COMPLEX Qty: 100 5RF Dose Instruction: USING 3 TIMES A DAY Rx Instructions: USING 3 TIMES A DAY duloxetine 60 mg capsule,delayed release(DR/EC) See Rx Instructions .ROUTE .COMPLEX Qty: 180 3RF Dose Instruction: TAKE TWO CAPSULES BY MOUTH EVERY MORNING Rx Instructions: TAKE TWO CAPSULES BY MOUTH EVERY MORNING metformin 1,000 mg tablet See Rx Instructions .ROUTE .COMPLEX Qty: 180 3RF Dose Instruction: TAKE ONE TABLET BY MOUTH TWICE A DAY Rx Instructions: TAKE ONE TABLET BY MOUTH TWICE A DAY atenolol 50 mg tablet See Rx Instructions .ROUTE .COMPLEX Qty: 90 3RF Dose Instruction: TAKE ONE TABLET BY MOUTH DAILY Rx Instructions: TAKE ONE TABLET BY MOUTH DAILY simvastatin 40 mg tablet See Rx Instructions .ROUTE .COMPLEX Qty: 90 0RF Dose Instruction: TAKE ONE TABLET BY MOUTH DAILY Rx Instructions: TAKE ONE TABLET BY MOUTH DAILY Trulicity 1.5 mg/0.5 mL pen injector See Rx Instructions .ROUTE .COMPLEX Qty: 2 0RF Dose Instruction: INJECT ONE AND A HALF (1 & 1/2) MG SUBCUTANEOUSLY ONCE WEEKLY Rx Instructions: INJECT ONE AND A HALF (1 & 1/2) MG SUBCUTANEOUSLY ONCE WEEKLY gabapentin 100 mg capsule See Rx Instructions .ROUTE .COMPLEX Qty: 180 0RF Dose Instruction: TAKE ONE CAPSULE BY MOUTH IN THE MORNING AND TWO CAPSULES IN THE EVENING Rx Instructions: TAKE ONE CAPSULE BY MOUTH IN THE MORNING AND TWO CAPSULES IN THE EVENING alprazolam 2 mg tablet 2 mg PO BID PRN (Reason: anxiety) Qty: 20 0RF trazodone 100 mg tablet See Rx Instructions .ROUTE .COMPLEX Qty: 60 0RF Dose Instruction: TAKE TWO TABLETS BY MOUTH AT BEDTIME Rx Instructions: TAKE TWO TABLETS BY MOUTH AT BEDTIME ziprasidone HCl 60 mg capsule See Rx Instructions .ROUTE .COMPLEX Qty: 180 0RF Dose Instruction: TAKE ONE CAPSULE BY MOUTH EVERY MORNING AND TWO CASPULES EVERY EVENING Rx Instructions: TAKE ONE CAPSULE BY MOUTH EVERY MORNING AND TWO CASPULES EVERY EVENING Follow-up/Referrals: Clark Graff DO [Primary Care Provider] -
[2024-10-02 13:53] VITALS: BP 143/92; PULSE 120; RESP 18; TEMP 36.7; O2SAT 99
[2024-10-02] MEDS: LORazepam INJ (*CRX) 2 MG/ML VIAL 1 MG IM (14:00)
[2024-10-02 14:17] VITALS: BP 119/64; PULSE 84; RESP 18; O2SAT 96
== END 2024-10-02 14:17 | disposition home or self-care (01) ==
LOC: CHSED 14:04
PROVIDERS: Emergency Provider Emergency Medicine; PCP Family Medicine
DX: F43.0 Acute stress reaction (principal); I10 Essential (primary) hypertension; E11.9 Type 2 diabetes mellitus without complications; E78.5 Hyperlipidemia, unspecified; F17.210 Nicotine dependence, cigarettes, uncomplicated
CPT/HCPCS: 96372; 99283; J2060

== ENCOUNTER 2024-10-20 15:44 | Emergency (ER) | payer OTHER, SELFPAY ==
--- OUTSIDE RECORDS SUMMARY | 2023-06-10 06:00 | XMS_ITS ---
Author Organization [facility] Address [address] [place] [address] Care Team Providers Care Medical Office Worker Name Role Phone Lito Mathew Primary Care Provider Marichuy Verdugo [phone] REASON FOR VISIT ON CRU--ZOOM Encounters Encounter Location Date Provider [facility] [place] [address] 06/10/2023 Marichuy Verdugo Plan Of Treatment No Information Progress Notes * Rudi FRANKELDOB: 3 (44 yo F)Acc No.[id number]:06/10/2023 UNLOCKED PROGRESS NOTE Patient: Rudi LARA Provider: Cynthia Verdugo DNP, ITZEL-SILVER, PSYCHOLOGIST DEVELOPMENTAL :1980 A ge:43 Y S ex:Female Date:06/10/2023 Address:[address] [place], [place] [id number] Pcp:Lito Mathew Subjective: * Chief Complaints: * 1 . ON CRU--ZOOM. * Medical History: Objective: * Vitals: Assessment: Plan: * Treatment: * * Electronic signature of Enedina Verdugo on 10/20/2024 at 03:46 PM CDT Sign off status: Pending * Provider: Cynthia Verdugo DNP, GALAP-BC, PSYCHOLOGIST DEVELOPMENTAL Date: 06/10/2023 Generated for Printing/Faxing/eTransmitting on: 10/20/2024 03:46 PM CDT
[2024-10-20 15:47] VITALS: BP 151/91; PULSE 108; RESP 20; TEMP 36.3; O2SAT 98
--- OUTSIDE RECORDS SUMMARY | 2024-10-20 15:47 | XMS_ITS | Clinical Summary ---
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 Gender Identity Not on file Sexual Orientation [...] PAPILLOMAVIRUS, HIGH-RISK TYPES Routine 04/02/2022 8:00 AM RESEARCH AND INSIGHTS EXECUTIVE from Last 3 Months or Most Recently Relevant to Health Maintenance Results * HUMAN PAPILLOMAVIRUS, HIGH-RISK TYPES (04/02/2022 8:00 AM RESEARCH AND INSIGHTS EXECUTIVE) SPEC DESCRIPTION CERVIX 04/04/19 2:54 PM RESEARCH AND INSIGHTS EXECUTIVE [facility] HPV DNA HIGH RISK NEGATIVE NEGATIVE 04/04/2022 7:19 PM RESEARCH AND INSIGHTS EXECUTIVE [facility] Comment:SEE CYTOLOGY REPORT 04/02/2022 8:00 AM RESEARCH AND INSIGHTS EXECUTIVE Marcela Lowe MEASUREMENT PSYCHOLOGIST PATHOLOGY/CYTOLOGY ORDERA BLES Final Result [facility] [address] [place] [address], from Last 3 Months or Most Recently Relevant to Health Maintenance Additional Health Concerns Infection Onset Date Last Indicated MRSA 03/16/2018 03/16/2018 Insurance [place] Care Teams Inseam Leveler Relationship Specialty Start Date End Date Clark Graff DO [address] [place] [address] PCP - General FAMILY PRACTICE 01/17/20
--- OUTSIDE RECORDS SUMMARY | 2024-10-20 15:47 | XMS_ITS | Encounter Summary ---
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
--- OUTSIDE RECORDS SUMMARY | 2024-10-20 15:47 | XMS_ITS | Patient Health Record ---
Author Organization [facility] Address [address] [place] [address] Care Team Providers Care Multiplex Operator Name Role Phone Lito Mathew Primary Care Provider Barbara Garcia Unavailable [phone] Allergies Allergen (clinical drug ingredient) Drug/Non Drug [...] Status Risk Notes Problem Morbid obesity (disorder) (783787221) Morbid (severe) obesity due to excess calories (E66.01) Active confirmed Problem Tobacco user (285758290) Nicotine dependence, unspecified, uncomplicated (F17.200) Active confirmed Problem Methamphetamine dependence (005606590) Methamphetamine addiction (F15.20) Active confirmed Problem Constipation (84025176) Constipation, unspecified constipation type (K59.00) 08/03/19 22 Active confirmed Problem Hyperlipidaemia (46469846) Hyperlipidemia, unspecified hyperlipidemia type (E78.5) 08/03/19 22 Active confirmed Problem Bipolar disorder (35917310) Bipolar affective disorder, remission status unspecified (F31.9) 08/03/19 22 Active confirmed Problem Essential hypertension (76181240) Hypertension, unspecified type (I10) 08/03/19 22 Active confirmed Problem Polyneuropathy due to type 2 diabetes mellitus (935211751) 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.42) 08/03/19 22 Active confirmed Encounters Encounter Location Date Provider Diagnosis [address] [address] 01/27/2024 Barbara Garcia Bipolar affective disorder, remission status unspecified F31.[address] [address] 03/09/2024 Barbara Jose Bipolar affective disorder, remission [...] Insured Coverage Start Date Coverage End Date [facility] Attn Claims Department [address] [place] [address] [phone] [id number] Rudi Frankel Self - patient is the insured 2 [facility] Department [address] [place] [address] [phone] [id number] Rudi Frankel Self - patient is the insured 3 Medical (General) History Medical History History ICD Code type 2 diabetic hypertension hypelipidemia bipolar effective disorder nicotine dependency meth use disorder Surgical History Surgery Date(Month/Year) Hospitalization History Reason Date(Month/Year)
[2024-10-20] MEDS: ALPRAZolam (*CRX) 0.5 MG TABLET 1 MG PO (16:05)
--- NOTE | 2024-10-20 16:08 | ED.ANXIETY ---
HPI - Anxiety General Chief Complaint: Anxiety Stated Complaint: anxiety Time Seen by Provider: 10/20/24 15:47 Source: patient Mode of arrival: ambulatory Limitations: no limitations History of Present Illness HPI narrative: this is a 44-year-old female with history of anxiety depression has been out of her Xanax for the last 3 to 4 days and presents with increased anxiety there is no shortness of breath no audible wheezing no fever chills no chest pain no nausea vomiting or abdominal pain no dysuria no flank pain or hematuria. complaint: anxiety Onset (ago): day(s) Severity: moderate Related Data Allergies Allergy/AdvReac Type Severity Reaction Status Date / Time fluconazole Allergy Severe Vomiting, Verified 09/26/24 14:51 DIZZINESS, DIARRHEA latex Allergy Intermediate Unknown Verified 09/26/24 14:51 Penicillins Allergy Intermediate Unknown Verified 09/26/24 14:51 propoxyphene (Darvocet-N 100) Allergy Intermediate Unknown Verified 09/26/24 14:51 Review of Systems Review of Systems: All systems reviewed & are unremarkable except as noted in HPI and below PMFSH Past Medical History Medical History Abdominal pain Obesity Diabetic peripheral neuropathy Schizophrenia Nicotine dependence Methamphetamine abuse Hypertension associated with diabetes Hyperlipidemia associated with type 2 diabetes mellitus Tobacco dependence ADHD Depression RAJ (generalized anxiety disorder) Vitamin D deficiency Type 2 diabetes mellitus Bipolar disorder Surgical History Surgical History Status post open reduction with internal fixation of fracture (~2002) Right ankle fracture with subsequent removal hardware 4 years later History of bilateral tubal ligation (~2009) Hx of tonsillectomy (~1994) Family History Family History Mother Ovarian cancer Diabetes mellitus Multiple sclerosis Grandparent Ovarian cancer Father Heart disease Leukemia Social History Social History Social History: She has smoked as much as 2 packs of cigarettes per day. She started smoking when she was 18. She is down to 1 pack of cigarettes per day. She does not drink any alcohol. She smokes marijuana daily. She has smoked and snorted methamphetamines for the last 7 years. She denies any other illicit substance use. She lives with her significant other. She has 9 cats and 3 dogs at home. She has a pit bull, husky and hound dog. Smoking packs per day: 1.5 Smoking cigarettes per day: 30.0 Years smoked: 23 Smoking pack-years: 34.50 Smoking status: Current every day smoker Tobacco type: cigarettes Additional smoking assessment comments: Patient stated she use to smoke 2 packs a day Alcohol intake: never Substance use: current Substance use type: marijuana Last use: 10/06/2021 marijuana, meth 10/10/2022 Lack of Transportation: YES Lack of Food: Sometimes True Current Housing: I Have Housing Concerned About Future Housing: Decline to Answer Difficulty Paying Gas/Electric Bills: YES Difficulty Paying for Meds: No Currently Unemployed: No Education: High School Diploma/GED Difficulty w/ Childcare or Family Care: No Additional living arrangements comments: Lives with her significant other. Additional occupation/education comments: On disability. Spiritual care concerns: No Exam Const: General: healthy appearing and no acute distress Nutritional Appearance: well nourished Orientation/consciousness: patient oriented x3 Limitations: no limitations Neck: Neck: normal visual inspection and no lymphadenopathy Resp: Effort & Inspection: normal respiratory effort Auscultation: clear to auscultation bilaterally Cardio: Rate: regular rate Rhythm: regular rhythm GI: GI Palp: Yes Soft to palpation Auscultation: normal bowel sounds : General: Yes bladder normal to palpation Urinary Catheter: Urinary Catheter: patent and draining Back/Spine/Pelvis: Back: no CVA tenderness Skin: General skin exam: normal color Rashes: no rashes Wounds: no wounds Neuro: General: patient oriented x3, moves all extremities and no meningeal signs Psych: Affect: Anxious affect present Course Course Emergency Course: Patient received a 1mg dose of p.o. Xanax after reassessment patient's symptoms have improved and will prescribe an refill her Xanax to 0 she follows with her primary care physician. Vital Signs Vital signs: Vital Signs Temperature 36.3 C L 10/20/24 15:47 Pulse Rate 108 H 10/20/24 15:47 Respiratory Rate 20 10/20/24 15:47 Blood Pressure 151/91 H 10/20/24 15:47 Pulse Oximetry 98 10/20/24 15:47 Oxygen Delivery Room Air 10/20/24 15:47 Temperature 36.3 C L 10/20/24 15:47 Pulse Rate 108 H 10/20/24 15:47 Respiratory Rate 20 10/20/24 15:47 Blood Pressure 151/91 H 10/20/24 15:47 Pulse Oximetry 98 10/20/24 15:47 Oxygen Delivery Room Air 10/20/24 15:47 Critical Care Time Critical Care Time Critical Care Time: No Discharge Plan Discharge Clinical Impression: Anxiety Patient Disposition: Home Condition: Stable Instructions: Antibiotic Form, Anxiety (ED) Additional Instructions: advised follow-up with her primary care physician within next 3 to 5 days for further evaluation treatment and refill of her Xanax. Patient Language: Belarusian Prescriptions: New alprazolam [Xanax] 1 mg tablet 1 mg PO BID PRN (Reason: anxiety) Qty: 20 0RF No Action alprazolam [Xanax] 1 mg tablet 1 mg PO BID PRN (Reason: anxiety) Qty: 10 0RF ondansetron 4 mg tablet,disintegrating 4 mg PO Q4H PRN (Reason: nausea and vomiting) 3 Days Qty: 30 0RF clotrimazole 1 % cream 1 applic topical Q12H 28 Days Qty: 45 0RF (DME) OneTouch Ultra Test Strip See Rx Instructions .ROUTE .COMPLEX Qty: 360 5RF Dose Instruction: TESTING 4 TIMES A DAY Rx Instructions: TESTING 4 TIMES A DAY (DME) lancets [TRUEplus Lancets] 33 gauge misc See Rx Instructions .ROUTE .COMPLEX Qty: 100 5RF Dose Instruction: DIRECTED. TESTING 4 TIMES A DAY DX:E11.9 Rx Instructions: DIRECTED. TESTING 4 TIMES A DAY DX:E11.9 dapagliflozin propanediol [Farxiga] 10 mg tablet See Rx Instructions .ROUTE .COMPLEX Qty: 90 3RF Dose Instruction: TAKE ONE TABLET BY MOUTH DAILY Rx Instructions: TAKE ONE TABLET BY MOUTH DAILY (DME) blood-glucose meter [Blood Glucose Monitoring] Kit See Rx Instructions .Route Qty: 1 0RF Rx Instructions: As directed (DME) pen needle, diabetic [TRUEplus Pen Needle] 29 gauge x 1/2 needle See Rx Instructions .ROUTE .COMPLEX Qty: 100 5RF Dose Instruction: USING 3 TIMES A DAY Rx Instructions: USING 3 TIMES A DAY duloxetine 60 mg capsule,delayed release(DR/EC) See Rx Instructions .ROUTE .COMPLEX Qty: 180 3RF Dose Instruction: TAKE TWO CAPSULES BY MOUTH EVERY MORNING Rx Instructions: TAKE TWO CAPSULES BY MOUTH EVERY MORNING metformin 1,000 mg tablet See Rx Instructions .ROUTE .COMPLEX Qty: 180 3RF Dose Instruction: TAKE ONE TABLET BY MOUTH TWICE A DAY Rx Instructions: TAKE ONE TABLET BY MOUTH TWICE A DAY atenolol 50 mg tablet See Rx Instructions .ROUTE .COMPLEX Qty: 90 3RF Dose Instruction: TAKE ONE TABLET BY MOUTH DAILY Rx Instructions: TAKE ONE TABLET BY MOUTH DAILY simvastatin 40 mg tablet See Rx Instructions .ROUTE .COMPLEX Qty: 90 0RF Dose Instruction: TAKE ONE TABLET BY MOUTH DAILY Rx Instructions: TAKE ONE TABLET BY MOUTH DAILY gabapentin 100 mg capsule See Rx Instructions .ROUTE .COMPLEX Qty: 180 0RF Dose Instruction: TAKE ONE CAPSULE BY MOUTH IN THE MORNING AND TWO CAPSULES IN THE EVENING Rx Instructions: TAKE ONE CAPSULE BY MOUTH IN THE MORNING AND TWO CAPSULES IN THE EVENING ziprasidone HCl 60 mg capsule See Rx Instructions .ROUTE .COMPLEX Qty: 180 0RF Dose Instruction: TAKE ONE CAPSULE BY MOUTH EVERY MORNING AND TWO CASPULES EVERY EVENING Rx Instructions: TAKE ONE CAPSULE BY MOUTH EVERY MORNING AND TWO CASPULES EVERY EVENING Trulicity 1.5 mg/0.5 mL pen injector See Rx Instructions .ROUTE .COMPLEX Qty: 2 0RF Dose Instruction: INJECT ONE AND A HALF (1 & 1/2) MG SUBCUTANEOUSLY ONCE WEEKLY Rx Instructions: INJECT ONE AND A HALF (1 & 1/2) MG SUBCUTANEOUSLY ONCE WEEKLY alprazolam 2 mg tablet 2 mg PO BID PRN (Reason: anxiety) Qty: 20 0RF trazodone 100 mg tablet See Rx Instructions .ROUTE .COMPLEX Qty: 60 0RF Dose Instruction: TAKE TWO TABLETS BY MOUTH AT BEDTIME Rx Instructions: TAKE TWO TABLETS BY MOUTH AT BEDTIME Follow-up/Referrals: Clark Graff DO [Primary Care Provider, Family Practice] Time of Disposition: 16:13
--- OUTSIDE RECORDS SUMMARY | 2024-10-20 16:19 | XMS_ITS | Clinical Summary ---
Author Organization [facility] Address [address] [place] [address] Care Team Providers Care Video Game Maker Name Role Phone Clark Graff DO Primary Care Provider [phone] Allergies Active Allergy Reactions Criticality Noted Date [...] on file Legal Sex Female 10:42 PM FINGERPRINT EXPERT Gender Identity Not on file Sexual [...] PAPILLOMAVIRUS, HIGH-RISK TYPES Routine 04/02/2022 8:00 AM FINGERPRINT EXPERT from Last 3 Months or Most Recently Relevant to Health Maintenance Results * HUMAN PAPILLOMAVIRUS, HIGH-RISK TYPES (04/02/2022 8:00 AM FINGERPRINT EXPERT) SPEC DESCRIPTION CERVIX 04/04/19 2:54 PM FINGERPRINT EXPERT [facility] HPV DNA HIGH RISK NEGATIVE NEGATIVE 04/04/2022 7:19 PM FINGERPRINT EXPERT [facility] Comment:SEE CYTOLOGY REPORT 04/02/2022 8:00 AM FINGERPRINT EXPERT Marcela Lowe COSMETICS SUPERVISOR PATHOLOGY/CYTOLOGY ORDERA BLES Final Result [facility] [address] [place] [address], from Last 3 Months or Most Recently Relevant to Health Maintenance Additional Health Concerns Infection Onset Date Last Indicated MRSA 03/16/2018 03/16/2018 Insurance [employer] [place] Care Teams Video Game Maker Relationship Specialty Start Date End Date Clark Graff DO [address] [place] [address] PCP - General FAMILY PRACTICE 01/17/20
--- OUTSIDE RECORDS SUMMARY | 2024-10-20 16:19 | XMS_ITS | Encounter Summary ---
Author Organization [facility] Address [address] [place] [address] Care Team Providers Care Trailer Rental Clerk Name Role Phone Clark Graff DO Primary Care Provider [phone] Encounter Details Date Type Department Care Team (Late st Contact Info) Description 08/07/2018 Abstract SFL CONVERSION [address] [place] [address] , Generic Conversion, Social History Tobacco Use Types Packs/Day Years Used Date Smoking Tobacco: Never Assessed Comments Unknown Sex and Gender Information Value Date Recorded Sex Assigned at Not on file Legal Sex Female 10:42 PM TRIMMER BUFFING WHEEL Gender Identity Not on file Sexual Orientation Not on file documented as of this encounter Plan of Treatment Not on file documented as of this encounter Visit Diagnoses Not on filedocumented in this encounter Additional Health Concerns Infection Onset Date Last Indicated Resolved Time MRSA 03/16/2018 03/16/2018 documented as of this encounter Care Teams Trailer Rental Clerk Relationship Specialty Start Date End Date Clark Graff DO [address] [place] [address] PCP - General FAMILY PRACTICE 01/17/20 documented as of this encounter
== END 2024-10-20 16:25 | disposition home or self-care (01) ==
LOC: CHSED 16:17
PROVIDERS: Emergency Provider Emergency Medicine; PCP Family Medicine
DX: F41.9 Anxiety disorder, unspecified (principal); F32.A Depression, unspecified; I10 Essential (primary) hypertension; E78.5 Hyperlipidemia, unspecified; E11.9 Type 2 diabetes mellitus without complications; F17.210 Nicotine dependence, cigarettes, uncomplicated; Z79.899 Other long term (current) drug therapy
CPT/HCPCS: 99283; A9270

== ENCOUNTER 2024-11-16 12:47 | Emergency (ER) | payer OTHER, SELFPAY ==
--- OUTSIDE RECORDS SUMMARY | 2023-06-10 06:00 | XMS_ITS ---
Author Organization [facility] Address [address] [place] [address] Care Team Providers Care Twister Tender Name Role Phone Lito Mathew Primary Care Provider Marichuy Verdugo [phone] REASON FOR VISIT ON CRU--ZOOM Encounters Encounter Location Date Provider Diagnosis [facility] [place] [address] 06/10/2023 Marichuy Verdugo Plan Of Treatment No Information Progress Notes * Rudi FRANKELDOB: 3 (44 yo F)Acc No.[id number]:06/10/2023 UNLOCKED PROGRESS NOTE Patient: Rudi LARA Provider: Cynthia Verdugo DNP, ITZEL-SILVER, OTR TRUCK DRIVER :1980 A ge:43 Y S ex:Female Date:06/10/2023 Address:[address] [place], [place] [phone] Pcp:Lito Mathew Subjective: * Chief Complaints: * 1 . ON CRU--ZOOM. * Medical History: Objective: * Vitals: Assessment: Plan: * Treatment: * * Electronic signature of Enedina Verdugo on 11/16/2024 at 12:54 PM CDT Sign off status: Pending * Provider: Cynthia Verdugo DNP, GALAP-BC, OTR TRUCK DRIVER Date: 06/10/2023 Generated for Printing/Faxing/eTransmitting on: 11/16/2024 12:54 PM CDT
[2024-11-16 12:48] VITALS: BP 144/79; PULSE 96; RESP 16; TEMP 36.4; O2SAT 100
--- OUTSIDE RECORDS SUMMARY | 2024-11-16 12:54 | XMS_ITS | Encounter Summary ---
Author Organization [facility] Address [address] [place] [address] Care Team Providers Care Associate Professor Of Surgery Name Role Phone Clark Graff DO Primary Care Provider [phone] Encounter Details Date Type Department Care Team (Late st Contact Info) Description 08/07/2018 Abstract SFL CONVERSION [address] [place] [address] , Generic Conversion, Social History Tobacco Use Types Packs/Day Years Used Date Smoking Tobacco: Never Assessed Comments Unknown Sex and Gender Information Value Date Recorded Sex Assigned at Not on file Legal Sex Female 10:42 PM WARP TYING MACHINE KNOTTER Gender Identity Not on file Sexual Orientation Not on file documented as of this encounter Plan of Treatment Not on file documented as of this encounter Visit Diagnoses Not on filedocumented in this encounter Additional Health Concerns Infection Onset Date Last Indicated Resolved Time MRSA 03/16/2018 03/16/2018 documented as of this encounter Care Teams Associate Professor Of Surgery Relationship Specialty Start Date End Date Clark Graff DO [address] [place] [address] PCP - General FAMILY PRACTICE 01/17/20 documented as of this encounter
--- OUTSIDE RECORDS SUMMARY | 2024-11-16 12:54 | XMS_ITS | Patient Health Record ---
Author Organization [facility] Address [address] [place] [address] Care Team Providers Care Nibbler Operator Name Role Phone Lito Mathew Primary Care Provider Barbara Garcia Unavailable [phone] Allergies Allergen (clinical drug ingredient) Drug/Non Drug [...] Status Risk Notes Problem Morbid obesity (disorder) (377762753) Morbid (severe) obesity due to excess calories (E66.01) Active confirmed Problem Tobacco user (240229592) Nicotine dependence, unspecified, uncomplicated (F17.200) Active confirmed Problem Methamphetamine dependence (802130596) Methamphetamine addiction (F15.20) Active confirmed Problem Constipation (54294162) Constipation, unspecified constipation type (K59.00) 08/03/19 22 Active confirmed Problem Hyperlipidaemia (21356469) Hyperlipidemia, unspecified hyperlipidemia type (E78.5) 08/03/19 22 Active confirmed Problem Bipolar disorder (41966333) Bipolar affective disorder, remission status unspecified (F31.9) 08/03/19 22 Active confirmed Problem Essential hypertension (66387548) Hypertension, unspecified type (I10) 08/03/19 22 Active confirmed Problem Polyneuropathy due to type 2 diabetes mellitus (951825487) 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.42) 08/03/19 22 Active confirmed Encounters Encounter Location Date Provider Diagnosis [address] [address] 01/27/2024 Barbara Garcia Bipolar affective disorder, remission status unspecified F31.[address] [address] 03/09/2024 Barbara Jose Bipolar affective disorder, remission [...] Insured Coverage Start Date Coverage End Date [facility] Attn Claims Department [address] [place] [address] [phone] [id number] Rudi Frankel Self - patient is the insured 2 [facility] Att[facility] Claims Department [address] [place] [address] [phone] [id number] Rudi Frankel Self - patient is the insured 3 Medical (General) History Medical History History ICD Code type 2 diabetic hypertension hypelipidemia bipolar effective disorder nicotine dependency meth use disorder Surgical History Surgery Date(Month/Year) Hospitalization History Reason Date(Month/Year)
--- OUTSIDE RECORDS SUMMARY | 2024-11-16 12:54 | XMS_ITS | Clinical Summary ---
Author Organization [facility] Address [address] [place] [address] Care Team Providers Care Ditching Machine Operating Engineer Name Role Phone Clark Graff DO Primary Care Provider [phone] Allergies Active Allergy Reactions Criticality Noted Date [...] file Legal Sex Female 10:42 PM COUNTER SUPPLY WORKER Gender Identity Not on file Sexual [...] COVID-19 Vaccine ( - 2023-2 5 season) 2024 [facility] Screening [facility] p with HPV [...] PAPILLOMAVIRUS, HIGH-RISK TYPES Routine 04/02/2022 8:00 AM COUNTER SUPPLY WORKER from Last 3 Months or Most Recently Relevant to Health Maintenance Results * HUMAN PAPILLOMAVIRUS, HIGH-RISK TYPES (04/02/2022 8:00 AM COUNTER SUPPLY WORKER) SPEC DESCRIPTION CERVIX 04/04/19 2:54 PM COUNTER SUPPLY WORKER [facility] HPV DNA HIGH RISK NEGATIVE NEGATIVE 04/04/2022 7:19 PM COUNTER SUPPLY WORKER [facility] Comment:SEE CYTOLOGY REPORT 04/02/2022 8:00 AM COUNTER SUPPLY WORKER Marcela Lowe BIOTECH PRODUCTION SPECIALIST PATHOLOGY/CYTOLOGY ORDERA BLES Final Result [facility] [address] [place] [address], from Last 3 Months or Most Recently Relevant to Health Maintenance Additional Health Concerns Infection Onset Date Last Indicated MRSA 03/16/2018 03/16/2018 Insurance [place] Care Teams Ditching Machine Operating Engineer Relationship Specialty Start Date End Date Clark Graff DO [address] [place] [address] PCP - General FAMILY PRACTICE 01/17/20
--- NOTE | 2024-11-16 13:00 | ED.ANXIETY ---
HPI - Anxiety General Chief Complaint: Anxiety Stated Complaint: Panic Attack Time Seen by Provider: 11/16/24 13:00 Source: patient Mode of arrival: ambulatory Limitations: no limitations History of Present Illness HPI narrative: 44-year-old female with a history of smoking, amphetamine abuse, obesity, diabetes mellitus, dyslipidemia, hypertension, anxiety/depression, bipolar /schizophrenia presents to the ED with multiple day history of -- anxiety -- palpitation and chest discomfort -- shortness of breath -- Feels panicky she had been on Xanax 2 mg twice a day. She ran out of her medication few days ago. complaint: anxiety, heart racing and shortness of breath Onset (ago): day(s) Symptoms: perioral numbness/tingling Severity: moderate Quality: constant Place: home History of similar episodes: Yes Provoking factors: other ( ran out of Xanax) Relieving factors: nothing Exacerbating factors: nothing Associated symptoms: chest pain, shortness of breath and palpitations Related Data Allergies Allergy/AdvReac Type Severity Reaction Status Date / Time fluconazole Allergy Severe Vomiting, Verified 11/16/24 12:50 DIZZINESS, DIARRHEA latex Allergy Intermediate Unknown Verified 11/16/24 12:50 Penicillins Allergy Intermediate Unknown Verified 11/16/24 12:50 propoxyphene (Darvocet-N 100) Allergy Intermediate Unknown Verified 11/16/24 12:50 Review of Systems Review of Systems: All systems reviewed & are unremarkable except as noted in HPI and below PMFSH Past Medical History Medical History Abdominal pain Obesity Diabetic peripheral neuropathy Schizophrenia Nicotine dependence Methamphetamine abuse Hypertension associated with diabetes Hyperlipidemia associated with type 2 diabetes mellitus Tobacco dependence ADHD Depression RAJ (generalized anxiety disorder) Vitamin D deficiency Type 2 diabetes mellitus Bipolar disorder Surgical History Surgical History Status post open reduction with internal fixation of fracture (~2002) Right ankle fracture with subsequent removal hardware 4 years later History of bilateral tubal ligation (~2009) Hx of tonsillectomy (~1994) Family History Family History Mother Ovarian cancer Diabetes mellitus Multiple sclerosis Grandparent Ovarian cancer Father Heart disease Leukemia Social History Social History Social History: She has smoked as much as 2 packs of cigarettes per day. She started smoking when she was 18. She is down to 1 pack of cigarettes per day. She does not drink any alcohol. She smokes marijuana daily. She has smoked and snorted methamphetamines for the last 7 years. She denies any other illicit substance use. She lives with her significant other. She has 9 cats and 3 dogs at home. She has a pit bull, husky and hound dog. Smoking packs per day: 1.5 Smoking cigarettes per day: 30.0 Years smoked: 23 Smoking pack-years: 34.50 Smoking status: Current every day smoker Tobacco type: cigarettes Additional smoking assessment comments: Patient stated she use to smoke 2 packs a day Alcohol intake: never Substance use: current Substance use type: does not use Last use: 10/06/2021 marijuana, meth 10/10/2022 Lack of Transportation: YES Lack of Food: Sometimes True Current Housing: I Have Housing Concerned About Future Housing: Decline to Answer Difficulty Paying Gas/Electric Bills: YES Difficulty Paying for Meds: No Currently Unemployed: No Education: High School Diploma/GED Difficulty w/ Childcare or Family Care: No Additional living arrangements comments: Lives with her significant other. Additional occupation/education comments: On disability. Spiritual care concerns: No Exam Narrative: vitals are stable. Afebrile. Const: General: no acute distress Nutritional Appearance: well nourished Orientation/consciousness: patient oriented x3 Limitations: no limitations HENMT: Head: normal to inspection Ears: external ears normal Face/Nose/Sinus: Normal external nose present Face and sinus: normal facial exam Mouth: Yes Normal oral and palatal mucosa present Throat: posterior oropharynx normal Eyes: Conjunctivae: conjunctivae normal Pupils: Equal, round and reactive pupils present EOM: EOMs intact bilaterally Direct Ophthalmoscopy: no photophobia Neck: Neck: normal visual inspection, no lymphadenopathy and no meningeal signs Chest: Chest palpation & inspection: normal inspection of the chest Resp: Effort & Inspection: normal respiratory effort Auscultation: clear to auscultation bilaterally Cardio: Rate: regular rate Rhythm: regular rhythm GI: GI Palp: Yes Soft to palpation Auscultation: normal bowel sounds Other: No tenderness/rigidity/rebound : General: Yes no CVA tenderness Back/Spine/Pelvis: Back: no CVA tenderness Skin: General skin exam: normal color Rashes: no rashes Wounds: no wounds Neuro: General: patient oriented x3, moves all extremities, no meningeal signs, no focal motor deficits and CN's II-XI intact bilaterally Cranial nerves: Yes Nystagmus not present Speech: normal speech Gait exam (Neuro): Normal gait present Extrem: General: normal to inspection and no clubbing, cyanosis or edema Psych: Affect: Anxious affect present Attitude: cooperative Other: patient is anxious. Course Course Emergency Course: Anxiety/panic attack benzo withdrawal. She ran out of Xanax a few days ago will give her 1 mg of Xanax now. Advised to follow up with the primary care physician /psychiatric to refill her medications. Vital Signs Vital signs: Vital Signs Temperature 36.4 C 11/16/24 12:48 Pulse Rate 96 11/16/24 12:48 Respiratory Rate 16 11/16/24 12:48 Blood Pressure 144/79 H 11/16/24 12:48 Pulse Oximetry 100 11/16/24 12:48 Oxygen Delivery Room Air 11/16/24 12:48 Temperature 36.4 C 11/16/24 12:48 Pulse Rate 96 11/16/24 12:48 Respiratory Rate 16 11/16/24 12:48 Blood Pressure 144/79 H 11/16/24 12:48 Pulse Oximetry 100 11/16/24 12:48 Oxygen Delivery Room Air 11/16/24 12:48 MDM - Anxiety MDM Narrative Medical decision making narrative: panic attack Differential Diagnosis Differential diagnosis: Likely hyperventilation and acute anxiety Medical Records Attestation: I reviewed the patient's medical records. Discharge Plan Discharge Clinical Impression: Panic disorder Patient Disposition: Home Condition: Stable Instructions: Antibiotic Form, Anxiety (ED), Panic Attack (ED) Patient Language: Setswana Prescriptions: No Action (DME) lancets [TRUEplus Lancets] 33 gauge misc See Rx Instructions .ROUTE .COMPLEX Qty: 100 5RF Dose Instruction: DIRECTED. TESTING 4 TIMES A DAY DX:E11.9 Rx Instructions: DIRECTED. TESTING 4 TIMES A DAY DX:E11.9 (DME) blood sugar diagnostic Strip See Rx Instructions .Route Qty: 50 2RF Rx Instructions: As directed (DME) blood-glucose meter [Blood Glucose Monitoring] Kit See Rx Instructions .Route Qty: 1 0RF Rx Instructions: As directed (DME) pen needle, diabetic [TRUEplus Pen Needle] 29 gauge x 1/2 needle See Rx Instructions .ROUTE .COMPLEX Qty: 100 5RF Dose Instruction: USING 3 TIMES A DAY Rx Instructions: USING 3 TIMES A DAY duloxetine 60 mg capsule,delayed release(DR/EC) See Rx Instructions .ROUTE .COMPLEX Qty: 180 3RF Dose Instruction: TAKE TWO CAPSULES BY MOUTH EVERY MORNING Rx Instructions: TAKE TWO CAPSULES BY MOUTH EVERY MORNING metformin 1,000 mg tablet See Rx Instructions .ROUTE .COMPLEX Qty: 180 3RF Dose Instruction: TAKE ONE TABLET BY MOUTH TWICE A DAY Rx Instructions: TAKE ONE TABLET BY MOUTH TWICE A DAY atenolol 50 mg tablet See Rx Instructions .ROUTE .COMPLEX Qty: 90 3RF Dose Instruction: TAKE ONE TABLET BY MOUTH DAILY Rx Instructions: TAKE ONE TABLET BY MOUTH DAILY ondansetron 4 mg tablet,disintegrating See Rx Instructions .ROUTE .COMPLEX Qty: 30 0RF Dose Instruction: DISSOLVE ONE TABLET ON TONGUE EVERY FOUR HOURS NEEDED FOR NAUSEA AND VOMITING FOR THREE DAYS Rx Instructions: DISSOLVE ONE TABLET ON TONGUE EVERY FOUR HOURS NEEDED FOR NAUSEA AND VOMITING FOR THREE DAYS simvastatin 40 mg tablet See Rx Instructions .ROUTE .COMPLEX Qty: 90 0RF Dose Instruction: TAKE ONE TABLET BY MOUTH DAILY Rx Instructions: TAKE ONE TABLET BY MOUTH DAILY Trulicity 1.5 mg/0.5 mL pen injector See Rx Instructions .ROUTE .COMPLEX Qty: 2 0RF Dose Instruction: INJECT ONE AND A HALF (1 & 1/2) MG SUBCUTANEOUSLY ONCE WEEKLY Rx Instructions: INJECT ONE AND A HALF (1 & 1/2) MG SUBCUTANEOUSLY ONCE WEEKLY alprazolam 2 mg tablet 2 mg PO BID PRN (Reason: anxiety) Qty: 20 0RF gabapentin 100 mg capsule See Rx Instructions .ROUTE .COMPLEX Qty: 180 0RF Dose Instruction: TAKE ONE CAPSULE BY MOUTH IN THE MORNING AND TWO CAPSULES IN THE EVENING Rx Instructions: TAKE ONE CAPSULE BY MOUTH IN THE MORNING AND TWO CAPSULES IN THE EVENING trazodone 100 mg tablet See Rx Instructions .ROUTE .COMPLEX Qty: 60 0RF Dose Instruction: TAKE TWO TABLETS BY MOUTH AT BEDTIME Rx Instructions: TAKE TWO TABLETS BY MOUTH AT BEDTIME ziprasidone HCl 60 mg capsule See Rx Instructions .ROUTE .COMPLEX Qty: 180 0RF Dose Instruction: TAKE ONE CAPSULE BY MOUTH EVERY MORNING AND TWO CASPULES EVERY EVENING Rx Instructions: TAKE ONE CAPSULE BY MOUTH EVERY MORNING AND TWO CASPULES EVERY EVENING dapagliflozin propanediol [Farxiga] 10 mg tablet See Rx Instructions .ROUTE .COMPLEX Qty: 90 3RF Dose Instruction: TAKE ONE TABLET BY MOUTH DAILY Rx Instructions: TAKE ONE TABLET BY MOUTH DAILY Follow-up/Referrals: Clark Graff DO [Primary Care Provider, [facility]] Time of Disposition: 13:13
[2024-11-16] MEDS: ALPRAZolam (*CRX) 0.5 MG TABLET 1 MG PO (13:18)
--- OUTSIDE RECORDS SUMMARY | 2024-11-16 13:36 | XMS_ITS | Clinical Summary ---
Author Organization [facility] Address [address] [place] [address] Care Team Providers Care Blender Machine Operator Name Role Phone Clark Graff DO Primary Care Provider [phone] Allergies Active Allergy Reactions Criticality Noted Date [...] file Legal Sex Female 10:42 PM WOOD TANK ERECTOR Gender Identity Not on file Sexual Orientation [...] PAPILLOMAVIRUS, HIGH-RISK TYPES Routine 04/02/2022 8:00 AM WOOD TANK ERECTOR from Last 3 Months or Most Recently Relevant to Health Maintenance Results * HUMAN PAPILLOMAVIRUS, HIGH-RISK TYPES (04/02/2022 8:00 AM WOOD TANK ERECTOR) SPEC DESCRIPTION CERVIX 04/04/19 2:54 PM WOOD TANK ERECTOR [facility] HPV DNA HIGH RISK NEGATIVE NEGATIVE 04/04/2022 7:19 PM WOOD TANK ERECTOR [facility] Comment:SEE CYTOLOGY REPORT 04/02/2022 8:00 AM WOOD TANK ERECTOR Marcela Lowe GALLERY OR MUSEUM ATTENDANT PATHOLOGY/CYTOLOGY ORDERA BLES Final Result [facility] [address] [place] [address], from Last 3 Months or Most Recently Relevant to Health Maintenance Additional Health Concerns Infection Onset Date Last Indicated MRSA 03/16/2018 03/16/2018 Insurance [place] Care Teams Blender Machine Operator Relationship Specialty Start Date End Date Clark Graff DO [address] [place] [address] PCP - General FAMILY PRACTICE 01/17/20
--- OUTSIDE RECORDS SUMMARY | 2024-11-16 13:36 | XMS_ITS | Encounter Summary ---
Author Organization [facility] Address [address] [place] [address] Care Team Providers Care Cosmetic Consultant Name Role Phone Clark Graff DO Primary Care Provider [phone] Encounter Details Date Type Department Care Team (Late st Contact Info) Description 08/07/2018 Abstract SFL CONVERSION [address] [place] [address] , Generic Conversion, Social History Tobacco Use Types Packs/Day Years Used Date Smoking Tobacco: Never Assessed Comments Unknown Sex and Gender Information Value Date Recorded Sex Assigned at Not on file Legal Sex Female 10:42 PM EMT I/85 Gender Identity Not on file Sexual Orientation Not on file documented as of this encounter Plan of Treatment Not on file documented as of this encounter Visit Diagnoses Not on filedocumented in this encounter Additional Health Concerns Infection Onset Date Last Indicated Resolved Time MRSA 03/16/2018 03/16/2018 documented as of this encounter Care Teams Cosmetic Consultant Relationship Specialty Start Date End Date Clark Graff DO [address] [place] [address] PCP - General FAMILY PRACTICE 01/17/20 documented as of this encounter
== END 2024-11-16 13:20 | disposition home or self-care (01) ==
LOC: CHSED 13:22
PROVIDERS: Emergency Provider Internal Medicine Critical Care Medicine; PCP Family Medicine
DX: F41.0 Panic disorder [episodic paroxysmal anxiety] (principal); E11.9 Type 2 diabetes mellitus without complications; I10 Essential (primary) hypertension; E78.5 Hyperlipidemia, unspecified; F17.210 Nicotine dependence, cigarettes, uncomplicated; Z79.899 Other long term (current) drug therapy
CPT/HCPCS: 99283; A9270

== ENCOUNTER 2024-11-17 05:45 | Emergency (ER) | payer OTHER, SELFPAY ==
--- OUTSIDE RECORDS SUMMARY | 2023-06-10 06:00 | XMS_ITS ---
Author Organization [facility] Address [address] [place] [address] Care Team Providers Care Hand Miter Operator Name Role Phone Lito Mathew Primary Care Provider Marichuy Verdugo [phone] REASON FOR VISIT ON CRU--ZOOM Encounters Encounter Location Date Provider Diagnosis [facility] [place] [address] 06/10/2023 Marichuy Verdugo Plan Of Treatment No Information Progress Notes * Rudi FRANKELDOB: 3 (44 yo F)Acc No.[id number]:06/10/2023 UNLOCKED PROGRESS NOTE Patient: Rudi LARA Provider: Cynthia Verdugo DNP, MADISYN, WEIGHT CHECKER :1980 A ge:43 Y S ex:Female Date:06/10/2023 Address:[address] [place], [place] [id number] Pcp:Lito Mathew Subjective: * Chief Complaints: * 1 . ON CRU--ZOOM. * Medical History: Objective: * Vitals: Assessment: Plan: * Treatment: * * Electronic signature of Enedina Verdugo on 11/17/2024 at 02:16 AM CDT Sign off status: Pending * Provider: Cynthia Verdugo DNP, ITZEL-BC, WEIGHT CHECKER Date: 06/10/2023 Generated for Printing/Faxing/eTransmitting on: 11/17/2024 02:16 AM CDT
--- OUTSIDE RECORDS SUMMARY | 2024-11-17 05:52 | XMS_ITS | Encounter Summary ---
Author Organization [facility] Address [address] [place] [address] Care Team Providers Care Grapple Skidder Operator Name Role Phone Clark Graff DO Primary Care Provider [phone] Encounter Details Date Type Department Care Team (Late st Contact Info) Description 08/07/2018 Abstract SFL CONVERSION [address] [place] [address] , Generic Conversion, Social History Tobacco Use Types Packs/Day Years Used Date Smoking Tobacco: Never Assessed Comments Unknown Sex and Gender Information Value Date Recorded Sex Assigned at Not on file Legal Sex Female 10:42 PM ELEVATOR SUPERVISOR Gender Identity Not on file Sexual Orientation Not on file documented as of this encounter Plan of Treatment Not on file documented as of this encounter Visit Diagnoses Not on filedocumented in this encounter Additional Health Concerns Infection Onset Date Last Indicated Resolved Time MRSA 03/16/2018 03/16/2018 documented as of this encounter Care Teams Grapple Skidder Operator Relationship Specialty Start Date End Date Clark Graff DO [address] [place] [address] PCP - General FAMILY PRACTICE 01/17/20 documented as of this encounter
--- OUTSIDE RECORDS SUMMARY | 2024-11-17 05:52 | XMS_ITS | Clinical Summary ---
Author Organization [facility] Address [address] [place] [address] Care Team Providers Care Revenue Liaison Name Role Phone Clark Graff DO Primary Care Provider [phone] Allergies Active Allergy Reactions Criticality Noted Date [...] on file Legal Sex Female 10:42 PM PUNCHBOARD STUFFER Gender Identity Not on file Sexual Orientation [...] PAPILLOMAVIRUS, HIGH-RISK TYPES Routine 04/02/2022 8:00 AM PUNCHBOARD STUFFER from Last 3 Months or Most Recently Relevant to Health Maintenance Results * HUMAN PAPILLOMAVIRUS, HIGH-RISK TYPES (04/02/2022 8:00 AM PUNCHBOARD STUFFER) SPEC DESCRIPTION CERVIX 04/04/19 2:54 PM PUNCHBOARD STUFFER [facility] HPV DNA HIGH RISK NEGATIVE NEGATIVE 04/04/2022 7:19 PM PUNCHBOARD STUFFER [facility] Comment:SEE CYTOLOGY REPORT 04/02/2022 8:00 AM PUNCHBOARD STUFFER Marcela Lowe PRODUCT SAFETY HEAD PATHOLOGY/CYTOLOGY ORDERA BLES Final Result [facility] [address] [place] [address], from Last 3 Months or Most Recently Relevant to Health Maintenance Additional Health Concerns Infection Onset Date Last Indicated MRSA 03/16/2018 03/16/2018 Insurance [place] Care Teams Revenue Liaison Relationship Specialty Start Date End Date Clark Graff DO [address] [place] [address] PCP - General FAMILY PRACTICE 01/17/20
--- OUTSIDE RECORDS SUMMARY | 2024-11-17 05:52 | XMS_ITS | Patient Health Record ---
Author Organization Formerly [facility] Address [address] [place] [address] Care Team Providers Care Transport Analyst Name Role Phone Lito Mathew Primary Care Provider Barbara Garcia Unavailable [phone] Allergies Allergen (clinical drug ingredient) Drug/Non Drug [...] Status Risk Notes Problem Morbid obesity (disorder) (707618157) Morbid (severe) obesity due to excess calories (E66.01) Active confirmed Problem Tobacco user (595300302) Nicotine dependence, unspecified, uncomplicated (F17.200) Active confirmed Problem Methamphetamine dependence (445799148) Methamphetamine addiction (F15.20) Active confirmed Problem Constipation (68635744) Constipation, unspecified constipation type (K59.00) 08/03/19 22 Active confirmed Problem Hyperlipidaemia (46982290) Hyperlipidemia, unspecified hyperlipidemia type (E78.5) 08/03/19 22 Active confirmed Problem Bipolar disorder (56102562) Bipolar affective disorder, remission status unspecified (F31.9) 08/03/19 22 Active confirmed Problem Essential hypertension (88642396) Hypertension, unspecified type (I10) 08/03/19 22 Active confirmed Problem Polyneuropathy due to type 2 diabetes mellitus (148270121) 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.42) 08/03/19 22 Active confirmed Encounters Encounter Location Date Provider Diagnosis [address] [address] 01/27/2024 Barbara Garcia Bipolar affective disorder, remission status unspecified F31.[address] [address] 03/09/2024 Barbara Jose Bipolar affective disorder, remission [...] Insured Coverage Start Date Coverage End Date [facility] Att[facility] Claims Department [address] [place] [address] [phone] [id number] Rudi Frankel Self - patient is the insured 2 [facility] [employer] Att[facility] Claims Department [address] [place] [address] [phone] Rudi Frankel Self - patient is the insured 3 Medical (General) History Medical History History ICD Code type 2 diabetic hypertension hypelipidemia bipolar effective disorder nicotine dependency meth use disorder Surgical History Surgery Date(Month/Year) Hospitalization History Reason Date(Month/Year)
--- NOTE | 2024-11-17 05:53 | ED.PSYCH ---
HPI - Psych General Chief Complaint: Anxiety Stated Complaint: wellness check Time Seen by Provider: 11/17/24 05:52 Source: patient and EMS Mode of arrival: ambulatory Limitations: no limitations History of Present Illness HPI Narrative: 42-year-old female with a history of smoking, amphetamine abuse, anxiety, panic attacks, bipolar, diabetes, dyslipidemia was seen in the ED yesterday for a panic attack. She had run out of Xanax. She presents to the ED with -- she thinks she has been poisoned. her boyfriend told her that he would kill her. her symptoms started 12 hours ago. -- Severe anxiety. she is requesting for Xanax. -- Pain all over her body -- abdominal pain. No nausea/ vomiting. No diarrhea. No fever or chills. After she left the ED yesterday she used methamphetamine. patient denied suicidal or homicidal ideation. Onset (ago): hour(s) ( 12 hours) Duration: constant Relieving factors: none Exacerbating factors: none Context: recent drug abuse Associated psychiatric symptoms: other ( Recent amphetamine use) Treatments prior to arrival: none Related Data Allergies Allergy/AdvReac Type Severity Reaction Status Date / Time fluconazole Allergy Severe Vomiting, Verified 11/17/24 06:21 DIZZINESS, DIARRHEA latex Allergy Intermediate Unknown Verified 11/17/24 06:21 Penicillins Allergy Intermediate Unknown Verified 11/17/24 06:21 propoxyphene (Darvocet-N 100) Allergy Intermediate Unknown Verified 11/17/24 06:21 Review of Systems Review of Systems: All systems reviewed & are unremarkable except as noted in HPI and below Constitutional: Constitutional: Reports as per HPI, Reports no additional constitutional complaints and Reports weakness Eyes: Eyes: Reports as per HPI and Reports no additional eye complaints ENT: Reports system reviewed and no additional complaints, except as documented and Reports as per HPI Cardiovascular: Cardiovascular: Reports as per HPI and Reports no additional cardiovascular complaints Respiratory: Respiratory: Reports as per HPI and Reports no additional respiratory complaints Gastrointestinal: Gastrointestinal: Reports as per HPI, Reports no additional gastrointestinal complaints and Reports abdominal pain Genitourinary: Genitourinary: Reports no additional female genitourinary complaints and Reports as per HPI Musculoskeletal: Musculoskeletal: Reports myalgias Integumentary/Breasts: Skin/Breast: Reports system reviewed and no additional complaints, except as docu Neurologic: Reports system reviewed and no additional complaints, except as documented and Reports as per HPI Psychiatric: Psychiatric: Reports anxiety Comments: She is paranoid. She thinks that boyfriend is trying to kill her. Severe anxiety. [facility] Past Medical History Medical History Abdominal pain Obesity Diabetic peripheral neuropathy Schizophrenia Nicotine dependence Methamphetamine abuse Hypertension associated with diabetes Hyperlipidemia associated with type 2 diabetes mellitus Tobacco dependence ADHD Depression RAJ (generalized anxiety disorder) Vitamin D deficiency Type 2 diabetes mellitus Bipolar disorder Surgical History Surgical History Status post open reduction with internal fixation of fracture (~2002) Right ankle fracture with subsequent removal hardware 4 years later History of bilateral tubal ligation (~2009) Hx of tonsillectomy (~1994) Family History Family History Mother Ovarian cancer Diabetes mellitus Multiple sclerosis Grandparent Ovarian cancer Father Heart disease Leukemia Social History Social History Social History: She has smoked as much as 2 packs of cigarettes per day. She started smoking when she was 18. She is down to 1 pack of cigarettes per day. She does not drink any alcohol. She smokes marijuana daily. She has smoked and snorted methamphetamines for the last 7 years. She denies any other illicit substance use. She lives with her significant other. She has 9 cats and 3 dogs at home. She has a pit bull, husky and hound dog. Smoking packs per day: 1.5 Smoking cigarettes per day: 30.0 Years smoked: 23 Smoking pack-years: 34.50 Smoking status: Current every day smoker Tobacco type: cigarettes Additional smoking assessment comments: Patient stated she use to smoke 2 packs a day Alcohol intake: never Substance use: current Substance use type: does not use Last use: 10/06/2021 marijuana, meth 10/10/2022 Lack of Transportation: YES Lack of Food: Sometimes True Current Housing: I Have Housing Concerned About Future Housing: Decline to Answer Difficulty Paying Gas/Electric Bills: YES Difficulty Paying for Meds: No Currently Unemployed: No Education: High School Diploma/GED Difficulty w/ Childcare or Family Care: No Additional living arrangements comments: Lives with her significant other. Additional occupation/education comments: On disability. Spiritual care concerns: No Exam Narrative: Pulse is 119. Blood pressure 128/98. Const: General: ill appearing Orientation/consciousness: patient oriented x3 HENMT: Head: normal to inspection Ears: external ears normal Face/Nose/Sinus: Normal external nose present Face and sinus: normal facial exam Mouth: Yes Normal oral and palatal mucosa present Throat: posterior oropharynx normal Eyes: Conjunctivae: conjunctivae normal Pupils: Equal, round and reactive pupils present EOM: EOMs intact bilaterally Direct Ophthalmoscopy: no photophobia Neck: Neck: normal visual inspection, no lymphadenopathy and no meningeal signs Chest: Chest palpation & inspection: normal inspection of the chest Resp: Effort & Inspection: normal respiratory effort Auscultation: clear to auscultation bilaterally Cardio: Rate: regular rate Rhythm: regular rhythm GI: GI Palp: Yes Soft to palpation Auscultation: normal bowel sounds Other: No tenderness/rigidity / rebound. : General: Yes no CVA tenderness Back/Spine/Pelvis: Back: no CVA tenderness Skin: General skin exam: normal color Rashes: no rashes Other: Healed ulcer on the back of her neck Neuro: General: patient oriented x3, moves all extremities, no meningeal signs, no focal motor deficits and CN's II-XI intact bilaterally Cranial nerves: Yes Nystagmus not present Speech: normal speech Extrem: General: normal to inspection and no clubbing, cyanosis or edema Psych: Other: severe anxiety. Pa Course Course Emergency Course: paranoid ideation severe anxiety methamphetamine use Vital Signs Vital signs: Vital Signs Temperature 36.4 C 11/17/24 05:55 Pulse Rate 119 H 11/17/24 05:55 Respiratory Rate 20 11/17/24 05:55 Blood Pressure 128/98 H 11/17/24 05:55 Pulse Oximetry 98 11/17/24 05:55 Oxygen Delivery Room Air 11/17/24 05:55 Temperature 36.4 C 11/17/24 05:55 Pulse Rate 119 H 11/17/24 05:55 Respiratory Rate 18 11/17/24 06:15 Blood Pressure 128/98 H 11/17/24 05:55 Pulse Oximetry 100 11/17/24 06:07 Oxygen Delivery Room Air 11/17/24 06:26 MDM - Psych MDM Narrative Medical decision making narrative: paranoid ideation anxiety methamphetamine abuse Differential Diagnosis Differential diagnosis: Likely drug-induced psychotic disorder Medical Records Attestation: I reviewed the patient's medical records. Lab Data Attestation: I reviewed the patient's lab results. 11/17/24 06:28 11/17/24 06:28 Labs: Lab Results 11/17/24 11/17/24 Range/Units 06:28 06:39 WBC 9.5 (4.8-10.8) K/mm3 RBC 4.92 (4.20-5.40) M/mm3 Hgb 13.6 (12.0-15.0) g/dL Hct 42.2 (35.0-49.0) % MCV 85.8 (78.0-102.0) fL MCH 27.6 (27.0-31.0) pg MCHC 32.2 (32-36) g/dL RDW 13.5 (11.6-14.4) % Plt Count 352 (150-420) K/mm3 MPV 9.0 L (9.2-11.8) fl Immature Gran % (Auto) 0.3 H (0.0-0.0) % Neut % (Auto) 69.4 (50.0-70.0) % Lymph % (Auto) 21.7 (18.0-42.0) % Lamar % (Auto) 7.8 (2.0-11.0) % Eos % (Auto) 0.3 L (1.0-6.0) % Baso % (Auto) 0.5 (0.0-1.0) % Lymph # (Auto) 2.06 (1.10-4.50) K/mm3 Lamar # (Auto) 0.74 (0.10-0.90) K/mm3 Eos # (Auto) 0.03 (0.02-0.50) K/mm3 Baso # (Auto) 0.05 (0.00-0.10) K/mm3 Abs Immat Gran (auto) 0.03 H (0.00-0.00) K/mm3 Absolute Neuts (auto) 6.58 (1.70-7.20) K/mm3 Absolute Nucleated RBC 0.00 (0.00-0.00) K/mm3 Nucleated RBC % 0.0 (0-0.0) % PT 10.6 (9.50-12.1) Seconds INR 1.0 APTT 32.5 H (23.9-30.70) Sec Sodium 140 (137-145) mmol/L Potassium 4.1 (3.4-5.0) mmol/L Chloride 100 (98-107) mmol/L Carbon Dioxide 29 (22-30) mmol/L Anion Gap 11 (4-12) mmol/L BUN 14 (7-17) mg/dL Creatinine 0.63 L (0.7-1.0) mg/dL Estim Creat Clear Calc 134 ml/min Estimated GFR > 60 (59 - ) Glucose 109 (65-110) mg/dL Calculated Osmolality 291 (285-295) mOsm/kg Lactic Acid 2.0 (0.4-2.0) mmol/L Calcium 9.3 (8.4-10.2) mg/dL Total Bilirubin 0.4 (0.2-1.3) mg/dL AST 30 (14-36) U/L ALT 28 (6-35) U/L Alkaline Phosphatase 61 (38-126) U/L Total Creatine Kinase 150 H (30-135) U/L Troponin I < 0.012 (0.000-0.034) ng/mL NT-Pro-B Natriuret Pep 312 H (19.9-100) pg/mL Total Protein 8.1 (6.3-8.2) g/dL Albumin 4.4 (3.5-5.1) g/dL Urine Color Light yellow (Yellow) Urine Appearance Clear (Clear) Urine pH 7.0 (5.0-8.0) Ur Specific [place] 1.020 (1.010-1.020) Urine Protein Trace H (Negative) Urine Glucose (UA) 3+ H (Negative) Urine Ketones Negative (Negative) Ur Blood (Man) Negative (Negative) Urine Nitrate Negative (Negative) Urine Bilirubin Negative (Negative) Urine Urobilinogen 0.2 (0.2-1.0) mg/dL Leukocyte Esterase Rfl Negative (Negative) RANDOLPH/UL Urine RBC 0-2 (0-2) /hpf Urine WBC None seen (0-3) /hpf Ur Squamous Epith Cells Moderate H (Few) /hpf Urine Bacteria 2+ H (None) /hpf Urine Test Negative Urine Opiates Screen Positive A (Negative) Urine Methadone Screen Negative (Negative) Acetaminophen < 10 L (10-30) ug/mL Ur Barbiturates Screen Negative (Negative) Ur Phencyclidine Scrn Negative (Negative) Ur Amphetamine Screen Positive A (Negative) U Benzodiazepines Scrn Positive A (Negative) Urine Cocaine Screen Negative (Negative) U Cannabinoids Screen Positive A (Negative) Ethyl Alcohol < 10 (<10) mg/dL ECG Data EKG #1: ECG completion date: 11/17/24 ECG completion time: 06:22 Interpretation: fast tachycardia with a heart rate of 112. Left axis deviation. No ST elevation. Discharge Plan Discharge Clinical Impression: Acute anxiety, Paranoid ideation, Methamphetamine abuse Patient Disposition: Home Condition: Stable Instructions: Antibiotic Form, Methamphetamine Use Disorder (ED), Panic Attack (ED) Patient Language: Maltese Prescriptions: No Action (DME) lancets [TRUEplus Lancets] 33 gauge misc See Rx Instructions .ROUTE .COMPLEX Qty: 100 5RF Dose Instruction: DIRECTED. TESTING 4 TIMES A DAY DX:E11.9 Rx Instructions: DIRECTED. TESTING 4 TIMES A DAY DX:E11.9 (DME) blood sugar diagnostic Strip See Rx Instructions .Route Qty: 50 2RF Rx Instructions: As directed (DME) blood-glucose meter [Blood Glucose Monitoring] Kit See Rx Instructions .Route Qty: 1 0RF Rx Instructions: As directed (DME) pen needle, diabetic [TRUEplus Pen Needle] 29 gauge x 1/2 needle See Rx Instructions .ROUTE .COMPLEX Qty: 100 5RF Dose Instruction: USING 3 TIMES A DAY Rx Instructions: USING 3 TIMES A DAY duloxetine 60 mg capsule,delayed release(DR/EC) See Rx Instructions .ROUTE .COMPLEX Qty: 180 3RF Dose Instruction: TAKE TWO CAPSULES BY MOUTH EVERY MORNING Rx Instructions: TAKE TWO CAPSULES BY MOUTH EVERY MORNING metformin 1,000 mg tablet See Rx Instructions .ROUTE .COMPLEX Qty: 180 3RF Dose Instruction: TAKE ONE TABLET BY MOUTH TWICE A DAY Rx Instructions: TAKE ONE TABLET BY MOUTH TWICE A DAY atenolol 50 mg tablet See Rx Instructions .ROUTE .COMPLEX Qty: 90 3RF Dose Instruction: TAKE ONE TABLET BY MOUTH DAILY Rx Instructions: TAKE ONE TABLET BY MOUTH DAILY ondansetron 4 mg tablet,disintegrating See Rx Instructions .ROUTE .COMPLEX Qty: 30 0RF Dose Instruction: DISSOLVE ONE TABLET ON TONGUE EVERY FOUR HOURS NEEDED FOR NAUSEA AND VOMITING FOR THREE DAYS Rx Instructions: DISSOLVE ONE TABLET ON TONGUE EVERY FOUR HOURS NEEDED FOR NAUSEA AND VOMITING FOR THREE DAYS simvastatin 40 mg tablet See Rx Instructions .ROUTE .COMPLEX Qty: 90 0RF Dose Instruction: TAKE ONE TABLET BY MOUTH DAILY Rx Instructions: TAKE ONE TABLET BY MOUTH DAILY Trulicity 1.5 mg/0.5 mL pen injector See Rx Instructions .ROUTE .COMPLEX Qty: 2 0RF Dose Instruction: INJECT ONE AND A HALF (1 & 1/2) MG SUBCUTANEOUSLY ONCE WEEKLY Rx Instructions: INJECT ONE AND A HALF (1 & 1/2) MG SUBCUTANEOUSLY ONCE WEEKLY alprazolam 2 mg tablet 2 mg PO BID PRN (Reason: anxiety) Qty: 20 0RF gabapentin 100 mg capsule See Rx Instructions .ROUTE .COMPLEX Qty: 180 0RF Dose Instruction: TAKE ONE CAPSULE BY MOUTH IN THE MORNING AND TWO CAPSULES IN THE EVENING Rx Instructions: TAKE ONE CAPSULE BY MOUTH IN THE MORNING AND TWO CAPSULES IN THE EVENING trazodone 100 mg tablet See Rx Instructions .ROUTE .COMPLEX Qty: 60 0RF Dose Instruction: TAKE TWO TABLETS BY MOUTH AT BEDTIME Rx Instructions: TAKE TWO TABLETS BY MOUTH AT BEDTIME ziprasidone HCl 60 mg capsule See Rx Instructions .ROUTE .COMPLEX Qty: 180 0RF Dose Instruction: TAKE ONE CAPSULE BY MOUTH EVERY MORNING AND TWO CASPULES EVERY EVENING Rx Instructions: TAKE ONE CAPSULE BY MOUTH EVERY MORNING AND TWO CASPULES EVERY EVENING dapagliflozin propanediol [Farxiga] 10 mg tablet See Rx Instructions .ROUTE .COMPLEX Qty: 90 3RF Dose Instruction: TAKE ONE TABLET BY MOUTH DAILY Rx Instructions: TAKE ONE TABLET BY MOUTH DAILY Follow-up/Referrals: Clark Graff DO [Primary Care Provider, [facility]] Time of Disposition: 07:04
[2024-11-17 05:55] VITALS: BP 128/98; PULSE 119; RESP 20; TEMP 36.4; O2SAT 98
[2024-11-17 06:07] VITALS: O2SAT 100
--- NOTE | 2024-11-17 06:13 | ECG_ITS ---
Test Date: 2024-11-17 06:22:06 Measurements Intervals Howard Rate: 112 P: 72 CA: 178 QRS: -21 QRSD: 89 T: 13 QT: 331 QTc: 452 Interpretive Statements SINUS TACHYCARDIA BORDERLINE LEFT AXIS DEVIATION [QRS AXIS < -20] NONSPECIFIC T-WAVE ABNORMALITY ABNORMAL ECG Compared to ECG 05/28/2024 17:29:47 Sinus rhythm no longer present Electronically Signed On 11-17-2024 08:01:46 CDT by Alcon Vicente M.D.
[2024-11-17 06:15] VITALS: RESP 18
[2024-11-17 06:35] LABS: Hematocrit 42.2 % (35.0-49.0); Hemoglobin 13.6 g/dL (12.0-15.0); Immature Granulocyte Percent A 0.3 % (0.0-0.0); Lymphocytes Absolute Auto 2.06 K/mm3 (1.10-4.50); Mean Corpuscular HGB Conc 32.2 g/dL (32-36); Mean Corpuscular Hemoglobin 27.6 pg (27.0-31.0); Mean Corpuscular Volume 85.8 fL (78.0-102.0); Nucleated Red Blood Cells Absolute Auto 0.00 K/mm3 (0.00-0.00); Nucleated Red Blood Cells Perc 0.0 % (0-0.0); Platelet Count Result 352 K/mm3 (150-420); Red Blood Count 4.92 M/mm3 (4.20-5.40); White Blood Count 9.5 K/mm3 (4.8-10.8)
[2024-11-17 06:45] LABS: Acetaminophen < 10 ug/mL (10-30)
[2024-11-17 06:46] LABS: Add Urine Microscopic? YES; Appearance Urine Clear (Clear); Glucose Urine UA 3+ (Negative); Leukocyte Esterase Ur Negative LEU/UL (Negative); Nitrate Urine Negative (Negative); Specific Grav Ur 1.020 (1.010-1.020)
--- NOTE | 2024-11-17 06:46 | PC.NURSE ---
patient given drink per echo tech as pt requested. call light within reach. awaiting results.
[2024-11-17 06:48] LABS: INR 1.0; Partial Thromboplastin Time 32.5 Sec (23.9-30.70); Prothrombin Time 10.6 Seconds (9.50-12.1)
[2024-11-17 06:51] LABS: Pregnancy On Board Control Positive
[2024-11-17 06:57] LABS: Alanine Aminotransferase 28 U/L (6-35); Anion Gap 11 mmol/L (4-12); Aspartate Amino Transferase 30 U/L (14-36); Bilirubin,Total 0.4 mg/dL (0.2-1.3); Blood Urea Nitrogen 14 mg/dL (7-17); Calcium 9.3 mg/dL (8.4-10.2); Carbon Dioxide 29 mmol/L (22-30); Chloride 100 mmol/L (98-107); Creatine Kinase 150 U/L (30-135); Estimated CRCL calculation 134 ml/min; Estimated Glomerular Filt Rate > 60; Glucose 109 mg/dL (65-110); Osmolality Calculated 291 mOsm/kg (285-295); Potassium 4.1 mmol/L (3.4-5.0); Sodium 140 mmol/L (137-145)
[2024-11-17 06:58] LABS: Albumin Level 4.4 g/dL (3.5-5.1); Alkaline Phosphatase 61 U/L (38-126); NT Pro B Type Natriuretic Pept 312 pg/mL (19.9-100); Total Protein 8.1 g/dL (6.3-8.2); Troponin I < 0.012 ng/mL (0.000-0.034)
[2024-11-17 07:01] LABS: Cannabinoid Screen Urine Positive (Negative)
--- NOTE | 2024-11-17 07:05 | PC.NURSE ---
Pt report given to HUEY Cohen for continuation of care on day shift.
[2024-11-17] MEDS: ALPRAZolam (*CRX) 0.5 MG TABLET 1 MG PO (07:13)
[2024-11-17 07:30] VITALS: BP 129/88; PULSE 105; RESP 20; TEMP 36.7; O2SAT 100
== END 2024-11-17 07:30 | disposition home or self-care (01) ==
PROVIDERS: Emergency Provider Internal Medicine Critical Care Medicine; PCP Family Medicine
DX: F41.9 Anxiety disorder, unspecified (principal); F22 Delusional disorders; F15.10 Other stimulant abuse, uncomplicated; E11.9 Type 2 diabetes mellitus without complications; E78.5 Hyperlipidemia, unspecified; F17.210 Nicotine dependence, cigarettes, uncomplicated; I10 Essential (primary) hypertension
CPT/HCPCS: 36415; 80053; 80143; 80307; 81001; 81025; 82077; 82550; 83605; 83880; 84484; 85025; 85610; 85730; 93005; 99284; A9270

== ENCOUNTER 2024-11-27 18:41 | Emergency (ER) | payer OTHER, SELFPAY ==
--- OUTSIDE RECORDS SUMMARY | 2023-06-10 06:00 | XMS_ITS ---
Author Organization [facility] Address [address] [place] [address] Care Team Providers Care Time Checker Name Role Phone Lito Mathew Primary Care Provider [phone] Marichuy Verdugo [phone] REASON FOR VISIT ON CRU--ZOOM Encounters Encounter Location Date [facility] [place] [address] 06/10/2023 Marichuy Verdugo Plan Of Treatment No Information Progress Notes * Rudi FRANKELDOB: 3 (44 yo F)Acc No.[id number]:06/10/2023 UNLOCKED PROGRESS NOTE Patient: Rudi LARA Provider: Cynthia Verdugo DNP, ITZEL-SILVER, BRICK CHIMNEY SUPERVISOR :1980 A ge:43 Y S ex:Female Date:06/10/2023 Address:[address] [place], [place] [phone] Pcp:Lito Mathew Subjective: * Chief Complaints: * 1 . ON CRU--ZOOM. * Medical History: Objective: * Vitals: Assessment: Plan: * Treatment: * * Electronic signature of Enedina Verdugo on 11/27/2024 at 07:03 PM CDT Sign off status: Pending * Provider: Cynthia Verdugo DNP, GALAP-BC, BRICK CHIMNEY SUPERVISOR Date: 06/10/2023 Generated for Printing/Faxing/eTransmitting on: 11/27/2024 07:03 PM CDT
[2024-11-27 18:45] VITALS: BP 143/98; PULSE 112; RESP 19; TEMP 36.6; O2SAT 97
--- NOTE | 2024-11-27 18:49 | ED.GENADULT ---
HPI - General Adult General Chief complaint: Recheck/Abnormal Lab/Rx Stated complaint: anxiety Time Seen by Provider: 11/27/24 18:49 Source: patient Mode of arrival: ambulatory Limitations: no limitations History of Present Illness HPI narrative: patient came to the ED walking complaining of anxiety like symptoms restlessness, too much stress going on related to her family and her life, denies any suicidal or homicidal ideation, run out of Xanax. She denies any fever, chills, nausea, vomiting, chest pain or shortness of breath. Patient is supposed to be on Xanax 2 mg b.i.d. Related Data Allergies Allergy/AdvReac Type Severity Reaction Status Date / Time fluconazole Allergy Severe Vomiting, Verified 11/27/24 18:45 DIZZINESS, DIARRHEA latex Allergy Intermediate Unknown Verified 11/27/24 18:45 Penicillins Allergy Intermediate Unknown Verified 11/27/24 18:45 propoxyphene (Darvocet-N 100) Allergy Intermediate Unknown Verified 11/27/24 18:45 Review of Systems Review of Systems: All systems reviewed & are unremarkable except as noted in HPI and below PMFSH Past Medical History Medical History Abdominal pain Obesity Diabetic peripheral neuropathy Schizophrenia Nicotine dependence Methamphetamine abuse Hypertension associated with diabetes Hyperlipidemia associated with type 2 diabetes mellitus Tobacco dependence ADHD Depression RAJ (generalized anxiety disorder) Vitamin D deficiency Type 2 diabetes mellitus Bipolar disorder Surgical History Surgical History Status post open reduction with internal fixation of fracture (~2002) Right ankle fracture with subsequent removal hardware 4 years later History of bilateral tubal ligation (~2009) Hx of tonsillectomy (~1994) Family History Family History Mother Ovarian cancer Diabetes mellitus Multiple sclerosis Grandparent Ovarian cancer Father Heart disease Leukemia Social History Social History Social History: She has smoked as much as 2 packs of cigarettes per day. She started smoking when she was 18. She is down to 1 pack of cigarettes per day. She does not drink any alcohol. She smokes marijuana daily. She has smoked and snorted methamphetamines for the last 7 years. She denies any other illicit substance use. She lives with her significant other. She has 9 cats and 3 dogs at home. She has a pit bull, husky and hound dog. Smoking packs per day: 1.5 Smoking cigarettes per day: 30.0 Years smoked: 23 Smoking pack-years: 34.50 Smoking status: Current every day smoker Tobacco type: cigarettes Additional smoking assessment comments: Patient stated she use to smoke 2 packs a day Alcohol intake: never Substance use: current Substance use type: former substance user, amphetamines and prescription drug Last use: 10/06/2021 marijuana, meth 10/10/2022 Lack of Transportation: YES Lack of Food: Sometimes True Current Housing: I Have Housing Concerned About Future Housing: Decline to Answer Difficulty Paying Gas/Electric Bills: YES Difficulty Paying for Meds: No Currently Unemployed: No Education: High School Diploma/GED Difficulty w/ Childcare or Family Care: No Additional living arrangements comments: Lives with her significant other. Additional occupation/education comments: On disability. Spiritual care concerns: No Exam Narrative: General appearance: Well-developed, well-nourished , anxious Skin: Normal color Head: Normocephalic, nontraumatic Chest and respiratory: Airway patent, no respiratory distress, no accessory muscle use Heart: Regular rate/rhythm Musculoskeletal: Normal range of motion, nontender back Neurologic: Alert and oriented ?3, ORE WASHER is normal as tested, no gross motor deficit Course Vital Signs Vital signs: Vital Signs Temperature 36.6 C 11/27/24 18:45 Pulse Rate 112 H 11/27/24 18:45 Respiratory Rate 11/27/24 18:45 Blood Pressure 143/98 H 11/27/24 18:45 Pulse Oximetry 97 11/27/24 18:45 Oxygen Delivery Room Air 11/27/24 18:45 Temperature 36.6 C 11/27/24 18:45 Pulse Rate 112 H 11/27/24 18:45 Respiratory Rate 11/27/24 18:45 Blood Pressure 143/98 H 11/27/24 18:45 Pulse Oximetry 97 11/27/24 18:45 Oxygen Delivery Room Air 11/27/24 18:45 Medical Decision Making MDM Narrative Medical decision making narrative: anxiety like symptoms, 2 mg of Xanax p.o. prior to discharge Vital Signs Vital Signs: Vital Signs Temperature 36.6 C 11/27/24 18:45 Pulse Rate 112 H 11/27/24 18:45 Respiratory Rate 19 11/27/24 18:45 Blood Pressure 143/98 H 11/27/24 18:45 Pulse Oximetry 97 11/27/24 18:45 Oxygen Delivery Room Air 11/27/24 18:45 Temperature 36.6 C 11/27/24 18:45 Pulse Rate 112 H 11/27/24 18:45 Respiratory Rate 19 11/27/24 18:45 Blood Pressure 143/98 H 11/27/24 18:45 Pulse Oximetry 97 11/27/24 18:45 Oxygen Delivery Room Air 11/27/24 18:45 Discharge Plan Discharge Clinical Impression: Anxiety Patient Disposition: Home Condition: Stable Instructions: Anxiety (ED) Additional Instructions: Return if symptoms are worsening , call your family physician in the morning for Xanax refill, take Tylenol as as needed for aches and pain, continue home medications. Patient Language: Monegasque Prescriptions: No Action (DME) lancets [TRUEplus Lancets] 33 gauge misc See Rx Instructions .ROUTE .COMPLEX Qty: 100 5RF Dose Instruction: DIRECTED. TESTING 4 TIMES A DAY DX:E11.9 Rx Instructions: DIRECTED. TESTING 4 TIMES A DAY DX:E11.9 (DME) blood sugar diagnostic Strip See Rx Instructions .Route Qty: 50 2RF Rx Instructions: As directed (DME) blood-glucose meter [Blood Glucose Monitoring] Kit See Rx Instructions .Route Qty: 1 0RF Rx Instructions: As directed (DME) pen needle, diabetic [TRUEplus Pen Needle] 29 gauge x 1/2 needle See Rx Instructions .ROUTE .COMPLEX Qty: 100 5RF Dose Instruction: USING 3 TIMES A DAY Rx Instructions: USING 3 TIMES A DAY duloxetine 60 mg capsule,delayed release(DR/EC) See Rx Instructions .ROUTE .COMPLEX Qty: 180 3RF Dose Instruction: TAKE TWO CAPSULES BY MOUTH EVERY MORNING Rx Instructions: TAKE TWO CAPSULES BY MOUTH EVERY MORNING metformin 1,000 mg tablet See Rx Instructions .ROUTE .COMPLEX Qty: 180 3RF Dose Instruction: TAKE ONE TABLET BY MOUTH TWICE A DAY Rx Instructions: TAKE ONE TABLET BY MOUTH TWICE A DAY atenolol 50 mg tablet See Rx Instructions .ROUTE .COMPLEX Qty: 90 3RF Dose Instruction: TAKE ONE TABLET BY MOUTH DAILY Rx Instructions: TAKE ONE TABLET BY MOUTH DAILY ondansetron 4 mg tablet,disintegrating See Rx Instructions .ROUTE .COMPLEX Qty: 30 0RF Dose Instruction: DISSOLVE ONE TABLET ON TONGUE EVERY FOUR HOURS NEEDED FOR NAUSEA AND VOMITING FOR THREE DAYS Rx Instructions: DISSOLVE ONE TABLET ON TONGUE EVERY FOUR HOURS NEEDED FOR NAUSEA AND VOMITING FOR THREE DAYS simvastatin 40 mg tablet See Rx Instructions .ROUTE .COMPLEX Qty: 90 0RF Dose Instruction: TAKE ONE TABLET BY MOUTH DAILY Rx Instructions: TAKE ONE TABLET BY MOUTH DAILY Trulicity 1.5 mg/0.5 mL pen injector See Rx Instructions .ROUTE .COMPLEX Qty: 2 0RF Dose Instruction: INJECT ONE AND A HALF (1 & 1/2) MG SUBCUTANEOUSLY ONCE WEEKLY Rx Instructions: INJECT ONE AND A HALF (1 & 1/2) MG SUBCUTANEOUSLY ONCE WEEKLY alprazolam 2 mg tablet 2 mg PO BID PRN (Reason: anxiety) Qty: 20 0RF gabapentin 100 mg capsule See Rx Instructions .ROUTE .COMPLEX Qty: 180 0RF Dose Instruction: TAKE ONE CAPSULE BY MOUTH IN THE MORNING AND TWO CAPSULES IN THE EVENING Rx Instructions: TAKE ONE CAPSULE BY MOUTH IN THE MORNING AND TWO CAPSULES IN THE EVENING trazodone 100 mg tablet See Rx Instructions .ROUTE .COMPLEX Qty: 60 0RF Dose Instruction: TAKE TWO TABLETS BY MOUTH AT BEDTIME Rx Instructions: TAKE TWO TABLETS BY MOUTH AT BEDTIME ziprasidone HCl 60 mg capsule See Rx Instructions .ROUTE .COMPLEX Qty: 180 0RF Dose Instruction: TAKE ONE CAPSULE BY MOUTH EVERY MORNING AND TWO CASPULES EVERY EVENING Rx Instructions: TAKE ONE CAPSULE BY MOUTH EVERY MORNING AND TWO CASPULES EVERY EVENING dapagliflozin propanediol [Farxiga] 10 mg tablet See Rx Instructions .ROUTE .COMPLEX Qty: 90 3RF Dose Instruction: TAKE ONE TABLET BY MOUTH DAILY Rx Instructions: TAKE ONE TABLET BY MOUTH DAILY Follow-up/Referrals: Clark Graff, [Primary Care Provider, Family Practice]
[2024-11-27] MEDS: ALPRAZolam (*CRX) 0.5 MG TABLET 2 MG PO (18:55)
[2024-11-27 18:59] VITALS: BP 143/98; PULSE 112; RESP 19; TEMP 36.6; O2SAT 97
--- OUTSIDE RECORDS SUMMARY | 2024-11-27 19:03 | XMS_ITS | Patient Health Record ---
Author Organization [facility] Address [address] [place] [address] Care Team Providers Care Field Health Officer Name Role Phone Lito Mathew Primary Care Provider [phone] Barbara Garcia Unavailable [phone] Allergies Allergen (clinical drug ingredient) Drug/Non Drug [...] Status Risk Notes Problem Morbid obesity (disorder) (016146916) Morbid (severe) obesity due to excess calories (E66.01) Active confirmed Problem Tobacco user (670004757) Nicotine dependence, unspecified, uncomplicated (F17.200) Active confirmed Problem Methamphetamine dependence (737354850) Methamphetamine addiction (F15.20) Active confirmed Problem Constipation (95705438) Constipation, unspecified constipation type (K59.00) 08/03/19 22 Active confirmed Problem Hyperlipidaemia (41198242) Hyperlipidemia, unspecified hyperlipidemia type (E78.5) 08/03/19 22 Active confirmed Problem Bipolar disorder (92804367) Bipolar affective disorder, remission status unspecified (F31.9) 08/03/19 22 Active confirmed Problem Essential hypertension (95041037) Hypertension, unspecified type (I10) 08/03/19 22 Active confirmed Problem Polyneuropathy due to type 2 diabetes mellitus (133089767) 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.42) 08/03/19 22 Active confirmed Encounters Encounter Location Date Provider Diagnosis [address] [address] 01/27/2024 Barbara Sanyamini Bipolar affective disorder, remission status unspecified F31.[address] [address] 03/09/2024 Barbara Sanyamini Bipolar affective disorder, remission [...] Start Date Coverage End Date [facility] Attn Claims Department [address] [place] [address] [phone] [id number] Rudi Frankel Self - patient is the insured 2 [facility] Att[facility] Claims Department [address] [place] [address] [phone] [id number] Rudi Frankel Self - patient is the insured 3 Medical (General) History Medical History History ICD Code type 2 diabetic hypertension hypelipidemia bipolar effective disorder nicotine dependency meth use disorder Surgical History Surgery Date(Month/Year) Hospitalization History Reason Date(Month/Year)
--- OUTSIDE RECORDS SUMMARY | 2024-11-27 19:03 | XMS_ITS | Clinical Summary ---
Author Organization [facility] Address [address] [place] [address] Care Team Providers Care Circular Clerk Name Role Phone Clark Graff DO Primary Care Provider [phone] Allergies Active Allergy Reactions Criticality Noted Date [...] on file Legal Sex Female 10:42 PM TEMPORARY OFFICE ASSISTANT Gender Identity Not on file Sexual [...] PAPILLOMAVIRUS, HIGH-RISK TYPES Routine 04/02/2022 8:00 AM TEMPORARY OFFICE ASSISTANT from Last 3 Months or Most Recently Relevant to Health Maintenance Results * HUMAN PAPILLOMAVIRUS, HIGH-RISK TYPES (04/02/2022 8:00 AM TEMPORARY OFFICE ASSISTANT) SPEC DESCRIPTION CERVIX 04/04/19 2:54 PM TEMPORARY OFFICE ASSISTANT [facility] HPV DNA HIGH RISK NEGATIVE NEGATIVE 04/04/2022 7:19 PM TEMPORARY OFFICE ASSISTANT [facility] Comment:SEE CYTOLOGY REPORT 04/02/2022 8:00 AM TEMPORARY OFFICE ASSISTANT Marcela Lowe CREDIT SPECIALIST PATHOLOGY/CYTOLOGY ORDERA BLES Final Result [facility] [address] [place] [address], from Last 3 Months or Most Recently Relevant to Health Maintenance Additional Health Concerns Infection Onset Date Last Indicated MRSA 03/16/2018 03/16/2018 Insurance [place] Care Teams Circular Clerk Relationship Specialty Start Date End Date Clark Graff DO [address] [place] [address] PCP - General FAMILY PRACTICE 01/17/20
--- OUTSIDE RECORDS SUMMARY | 2024-11-27 19:03 | XMS_ITS | Encounter Summary ---
Author Organization [facility] Address [address] [place] [address] Care Team Providers Care Barrel Charrer Name Role Phone Clark Graff DO Primary Care Provider [phone] Encounter Details Date Type Department Care Team (Late st Contact Info) Description 08/07/2018 Abstract [facility] CONVERSION [address] [place] [address] , Generic Conversion, Social History Tobacco Use Types Packs/Day Years Used Date Smoking Tobacco: Never Assessed Comments Unknown Sex and Gender Information Value Date Recorded Sex Assigned at Not on file Legal Sex Female 10:42 PM BABCOCK TESTER Gender Identity Not on file Sexual Orientation Not on file documented as of this encounter Plan of Treatment Not on file documented as of this encounter Visit Diagnoses Not on filedocumented in this encounter Additional Health Concerns Infection Onset Date Last Indicated Resolved Time MRSA 03/16/2018 03/16/2018 documented as of this encounter Care Teams Barrel Charrer Relationship Specialty Start Date End Date Clark Graff DO [address] [place] [address] PCP - General FAMILY PRACTICE 01/17/20 documented as of this encounter
== END 2024-11-27 18:59 | disposition home or self-care (01) ==
LOC: CHSED 19:02
PROVIDERS: Emergency Provider Emergency Medicine; PCP Family Medicine
DX: F41.9 Anxiety disorder, unspecified (principal); E11.9 Type 2 diabetes mellitus without complications; E78.5 Hyperlipidemia, unspecified; I10 Essential (primary) hypertension; F17.210 Nicotine dependence, cigarettes, uncomplicated
CPT/HCPCS: 99283; A9270

== ENCOUNTER 2024-11-28 15:16 | Emergency (ER) | payer OTHER, SELFPAY ==
--- OUTSIDE RECORDS SUMMARY | 2023-06-10 06:00 | XMS_ITS ---
Author Organization [facility] Address [address] [place] [address] Care Team Providers Care Torch Cutter Name Role Phone Lito Mathew Primary Care Provider [phone] Marichuy Verdugo [phone] REASON FOR VISIT ON CRU--ZOOM Encounters Encounter Location Date Provider Diagnosis [facility] [address] 06/10/2023 Marichuy Verdugo Plan Of Treatment No Information Progress Notes * Rudi FRANKELDOB: 3 (44 yo F)Acc No.[id number]:06/10/2023 UNLOCKED PROGRESS NOTE Patient: Rudi LARA Provider: Cynthia Verdugo DNP, ITZEL-SILVER, NARCOTICS AND VICE DETECTIVE :1980 A ge:43 Y S ex:Female Date:06/10/2023 Address:[address] [place], [place] [id number] Pcp:Lito Mathew Subjective: * Chief Complaints: * 1 . ON CRU--ZOOM. * Medical History: Objective: * Vitals: Assessment: Plan: * Treatment: * * Electronic signature of Enedina Verdugo on 11/28/2024 at 03:46 PM CDT Sign off status: Pending * Provider: Cynthia Verdugo DNP, GALAP-BC, NARCOTICS AND VICE DETECTIVE Date: 06/10/2023 Generated for Printing/Faxing/eTransmitting on: 11/28/2024 03:46 PM CDT
[2024-11-28 15:17] VITALS: BP 128/67; PULSE 95; RESP 18; TEMP 36.6; O2SAT 97
--- NOTE | 2024-11-28 15:21 | ED_ITS ---
HPI - Anxiety General Chief Complaint: Anxiety Stated Complaint: anxiety Time Seen by Provider: 11/28/24 15:21 Source: patient Mode of arrival: ambulatory Limitations: no limitations History of Present Illness HPI narrative: Patient is a 44-year-old female with recurrent refills needing of Xanax or any benzodiazepine for her general anxiety disorder. Patient is here for same. She has been here many times for the same. I did explain to her we cannot keep refilling her Xanax. I did termite control servicer she is able to get a shot of something today to reduce her anxiety at this time. She is having anxiety at this time. MD complaint: anxiety Onset (ago): day(s) (Three) Symptoms: dyspnea, extremity numbness/tingling, perioral numbness/tingling, dry mouth and sense of impending doom Severity: moderate Quality: intermittent Place: home History of similar episodes: Yes Provoking factors: emotional stress Relieving factors: medication Exacerbating factors: thinking about event Associated symptoms: denies other symptoms Related Data Allergies Allergy/AdvReac Type Severity Reaction Status Date / Time fluconazole Allergy Severe Vomiting, Verified 11/28/24 15:17 DIZZINESS, DIARRHEA latex Allergy Intermediate Unknown Verified 11/28/24 15:17 Penicillins Allergy Intermediate Unknown Verified 11/28/24 15:17 propoxyphene (Darvocet-N 100) Allergy Intermediate Unknown Verified 11/28/24 15:17 Review of Systems Review of Systems: All systems reviewed & are unremarkable except as noted in HPI and below Constitutional: Constitutional: Reports no additional constitutional complaints Eyes: Eyes: Reports no additional eye complaints ENT: Reports system reviewed and no additional complaints, except as documented Cardiovascular: Cardiovascular: Reports no additional cardiovascular complaints Respiratory: Respiratory: Reports no additional respiratory complaints Gastrointestinal: Gastrointestinal: Reports no additional gastrointestinal complaints Genitourinary: Genitourinary: Reports no additional female genitourinary complaints Musculoskeletal: Musculoskeletal: Reports no additional musculoskeletal complaints Integumentary/Breasts: Skin/Breast: Reports system reviewed and no additional complaints, except as docu Neurologic: Reports system reviewed and no additional complaints, except as documented Psychiatric: Psychiatric: Reports no additional psychiatric complaints Endocrine: Endocrine: Reports no additional endocrine complaints Hematologic/Lymphatic: Hematologic/Lymphatic: Reports no additional hematologic/lymphatic complaints Allergic/Immunologic: Allergic/Immunologic: Reports no additional allergic/immunologic complaints PMFSH Past Medical History Medical History Abdominal pain Obesity Diabetic peripheral neuropathy Schizophrenia Nicotine dependence Methamphetamine abuse Hypertension associated with diabetes Hyperlipidemia associated with type 2 diabetes mellitus Tobacco dependence ADHD Depression RAJ (generalized anxiety disorder) Vitamin D deficiency Type 2 diabetes mellitus Bipolar disorder Surgical History Surgical History Status post open reduction with internal fixation of fracture (~2002) Right ankle fracture with subsequent removal hardware 4 years later History of bilateral tubal ligation (~2009) Hx of tonsillectomy (~1994) Family History Family History Mother Ovarian cancer Diabetes mellitus Multiple sclerosis Grandparent Ovarian cancer Father Heart disease Leukemia Social History Social History Social History: She has smoked as much as 2 packs of cigarettes per day. She started smoking when she was 18. She is down to 1 pack of cigarettes per day. She does not drink any alcohol. She smokes marijuana daily. She has smoked and snorted methamphetamines for the last 7 years. She denies any other illicit substance use. She lives with her significant other. She has 9 cats and 3 dogs at home. She has a pit bull, husky and hound dog. Smoking packs per day: 1.5 Smoking cigarettes per day: 30.0 Years smoked: 23 Smoking pack-years: 34.50 Smoking status: Current every day smoker Tobacco type: cigarettes Additional smoking assessment comments: Patient stated she use to smoke 2 packs a day Alcohol intake: never Substance use: current Substance use type: former substance user, amphetamines and prescription drug Last use: 10/06/2021 marijuana, meth 10/10/2022 Lack of Transportation: YES Lack of Food: Sometimes True Current Housing: I Have Housing Concerned About Future Housing: Decline to Answer Difficulty Paying Gas/Electric Bills: YES Difficulty Paying for Meds: No Currently Unemployed: No Education: High School Diploma/GED Difficulty w/ Childcare or Family Care: No Additional living arrangements comments: Lives with her significant other. Additional occupation/education comments: On disability. Spiritual care concerns: No Exam Const: General: healthy appearing Nutritional Appearance: well nourished Orientation/consciousness: patient oriented x3 HENMT: Head: normal to inspection Ears: external ears normal Face/Nose/Sinus: Normal external nose present Eyes: Conjunctivae: conjunctivae normal Pupils: Equal, round and reactive pupils present EOM: EOMs intact bilaterally Neck: Neck: normal visual inspection Chest: Chest palpation & inspection: normal inspection of the chest Resp: Effort & Inspection: normal respiratory effort and not labored Auscultation: clear to auscultation bilaterally and no crackles Cardio: Rate: regular rate Rhythm: regular rhythm Heart sounds: no murmurs GI: Inspection: non-distended GI Palp: Yes Soft to palpation and No Tenderness to palpation present (GI) Auscultation: normal bowel sounds : General: Yes bladder normal to palpation Back/Spine/Pelvis: Back: no CVA tenderness Skin: General skin exam: normal color Rashes: no rashes Wounds: no wounds Neuro: General: patient oriented x3, moves all extremities and no meningeal signs Extrem: General: normal to inspection, no clubbing, cyanosis or edema and no pedal edema Psych: Mental Status: mental status grossly normal Affect: Anxious affect present Attitude: cooperative Other: No suicide or homicide ideation MDM - Anxiety MDM Narrative Medical decision making narrative: Patient is a 44-year-old female with general anxiety and out of her medication. We will give her a Valium IM at this time to control her anxiety. We will not be filling her home Xanax. She was just here last night and they did not fill her home Xanax. She was reminded the emergency room cannot be a primary doctor or refill controlled medications. Discharge Plan Discharge Clinical Impression: Generalized anxiety disorder Patient Disposition: Home Condition: Stable Instructions: Anxiety (ED) Additional Instructions: Please follow-up with your doctor to get Xanax refills. Follow up psychiatrist. Patient Language: Lithuanian Prescriptions: No Action (DME) lancets [TRUEplus Lancets] 33 gauge misc See Rx Instructions .ROUTE .COMPLEX Qty: 100 5RF Dose Instruction: DIRECTED. TESTING 4 TIMES A DAY DX:E11.9 Rx Instructions: DIRECTED. TESTING 4 TIMES A DAY DX:E11.9 (DME) blood sugar diagnostic Strip See Rx Instructions .Route Qty: 50 2RF Rx Instructions: As directed (DME) blood-glucose meter [Blood Glucose Monitoring] Kit See Rx Instructions .Route Qty: 1 0RF Rx Instructions: As directed (DME) pen needle, diabetic [TRUEplus Pen Needle] 29 gauge x 1/2 needle See Rx Instructions .ROUTE .COMPLEX Qty: 100 5RF Dose Instruction: USING 3 TIMES A DAY Rx Instructions: USING 3 TIMES A DAY duloxetine 60 mg capsule,delayed release(DR/EC) See Rx Instructions .ROUTE .COMPLEX Qty: 180 3RF Dose Instruction: TAKE TWO CAPSULES BY MOUTH EVERY MORNING Rx Instructions: TAKE TWO CAPSULES BY MOUTH EVERY MORNING metformin 1,000 mg tablet See Rx Instructions .ROUTE .COMPLEX Qty: 180 3RF Dose Instruction: TAKE ONE TABLET BY MOUTH TWICE A DAY Rx Instructions: TAKE ONE TABLET BY MOUTH TWICE A DAY atenolol 50 mg tablet See Rx Instructions .ROUTE .COMPLEX Qty: 90 3RF Dose Instruction: TAKE ONE TABLET BY MOUTH DAILY Rx Instructions: TAKE ONE TABLET BY MOUTH DAILY ondansetron 4 mg tablet,disintegrating See Rx Instructions .ROUTE .COMPLEX Qty: 30 0RF Dose Instruction: DISSOLVE ONE TABLET ON TONGUE EVERY FOUR HOURS NEEDED FOR NAUSEA AND VOMITING FOR THREE DAYS Rx Instructions: DISSOLVE ONE TABLET ON TONGUE EVERY FOUR HOURS NEEDED FOR NAUSEA AND VOMITING FOR THREE DAYS simvastatin 40 mg tablet See Rx Instructions .ROUTE .COMPLEX Qty: 90 0RF Dose Instruction: TAKE ONE TABLET BY MOUTH DAILY Rx Instructions: TAKE ONE TABLET BY MOUTH DAILY Trulicity 1.5 mg/0.5 mL pen injector See Rx Instructions .ROUTE .COMPLEX Qty: 2 0RF Dose Instruction: INJECT ONE AND A HALF (1 & 1/2) MG SUBCUTANEOUSLY ONCE WEEKLY Rx Instructions: INJECT ONE AND A HALF (1 & 1/2) MG SUBCUTANEOUSLY ONCE WEEKLY alprazolam 2 mg tablet 2 mg PO BID PRN (Reason: anxiety) Qty: 20 0RF gabapentin 100 mg capsule See Rx Instructions .ROUTE .COMPLEX Qty: 180 0RF Dose Instruction: TAKE ONE CAPSULE BY MOUTH IN THE MORNING AND TWO CAPSULES IN THE EVENING Rx Instructions: TAKE ONE CAPSULE BY MOUTH IN THE MORNING AND TWO CAPSULES IN THE EVENING trazodone 100 mg tablet See Rx Instructions .ROUTE .COMPLEX Qty: 60 0RF Dose Instruction: TAKE TWO TABLETS BY MOUTH AT BEDTIME Rx Instructions: TAKE TWO TABLETS BY MOUTH AT BEDTIME ziprasidone HCl 60 mg capsule See Rx Instructions .ROUTE .COMPLEX Qty: 180 0RF Dose Instruction: TAKE ONE CAPSULE BY MOUTH EVERY MORNING AND TWO CASPULES EVERY EVENING Rx Instructions: TAKE ONE CAPSULE BY MOUTH EVERY MORNING AND TWO CASPULES EVERY EVENING dapagliflozin propanediol [Farxiga] 10 mg tablet See Rx Instructions .ROUTE .COMPLEX Qty: 90 3RF Dose Instruction: TAKE ONE TABLET BY MOUTH DAILY Rx Instructions: TAKE ONE TABLET BY MOUTH DAILY Follow-up/Referrals: Clark Graff DO [Primary Care Provider, [facility]] Time of Disposition: 15:33
[2024-11-28] MEDS: diazePAM INJ (*CRX) 10 MG/2 ML SYRINGE 5 MG IM (15:31)
--- OUTSIDE RECORDS SUMMARY | 2024-11-28 16:06 | XMS_ITS | Encounter Summary ---
Author Organization [facility] Address [address] [place] [address] Care Team Providers Care Front Office Associate Name Role Phone Clark Graff DO Primary Care Provider [phone] Encounter Details Date Type Department Care Team (Late st Contact Info) Description 08/07/2018 Abstract SFL CONVERSION [address] [place] [address] , Generic Conversion, Social History Tobacco Use Types Packs/Day Years Used Date Smoking Tobacco: Never Assessed Comments Unknown Sex and Gender Information Value Date Recorded Sex Assigned at Not on file Legal Sex Female 10:42 PM WOLF HUNTER Gender Identity Not on file Sexual Orientation Not on file documented as of this encounter Plan of Treatment Not on file documented as of this encounter Visit Diagnoses Not on filedocumented in this encounter Additional Health Concerns Infection Onset Date Last Indicated Resolved Time MRSA 03/16/2018 03/16/2018 documented as of this encounter Care Teams Front Office Associate Relationship Specialty Start Date End Date Clark Graff DO [address] [place] [address] PCP - General FAMILY PRACTICE 01/17/20 documented as of this encounter
--- OUTSIDE RECORDS SUMMARY | 2024-11-28 16:06 | XMS_ITS | Clinical Summary ---
Author Organization [facility] Address [address] [place] [address] Care Team Providers Care Communications Technologist Name Role Phone Clark Graff DO Primary Care Provider [phone] Allergies Active Allergy Reactions Criticality Noted Date [...] on file Legal Sex Female 10:42 PM CONTRACTOR FIELD HAULING Gender Identity Not on file Sexual Orientation [...] PAPILLOMAVIRUS, HIGH-RISK TYPES Routine 04/02/2022 8:00 AM CONTRACTOR FIELD HAULING from Last 3 Months or Most Recently Relevant to Health Maintenance Results * HUMAN PAPILLOMAVIRUS, HIGH-RISK TYPES (04/02/2022 8:00 AM CONTRACTOR FIELD HAULING) SPEC DESCRIPTION CERVIX 04/04/19 2:54 PM CONTRACTOR FIELD HAULING [facility] HPV DNA HIGH RISK NEGATIVE NEGATIVE 04/04/2022 7:19 PM CONTRACTOR FIELD HAULING [facility] Comment:SEE CYTOLOGY REPORT 04/02/2022 8:00 AM CONTRACTOR FIELD HAULING Marcela Lowe SIGNAL SYSTEM TESTING MAINTAINER PATHOLOGY/CYTOLOGY ORDERA BLES Final Result [facility] [address] [place] [address], from Last 3 Months or Most Recently Relevant to Health Maintenance Additional Health Concerns Infection Onset Date Last Indicated MRSA 03/16/2018 03/16/2018 Insurance [place] Care Teams Communications Technologist Relationship Specialty Start Date End Date Clark Graff DO [address] [place] [address] PCP - General FAMILY PRACTICE 01/17/20
--- OUTSIDE RECORDS SUMMARY | 2024-11-28 16:06 | XMS_ITS | Patient Health Record ---
Author Organization [facility] Address [address] [place] [address] Care Team Providers Care Code Clerk Name Role Phone Lito Mathew Primary Care Provider Barbara Garcia Unavailable [phone] Allergies Allergen (clinical drug ingredient) Drug/Non Drug [...] Status Risk Notes Problem Morbid obesity (disorder) (228794442) Morbid (severe) obesity due to excess calories (E66.01) Active confirmed Problem Tobacco user (579586835) Nicotine dependence, unspecified, uncomplicated (F17.200) Active confirmed Problem Methamphetamine dependence (912294961) Methamphetamine addiction (F15.20) Active confirmed Problem Constipation (52103575) Constipation, unspecified constipation type (K59.00) 08/03/19 22 Active confirmed Problem Hyperlipidaemia (26990083) Hyperlipidemia, unspecified hyperlipidemia type (E78.5) 08/03/19 22 Active confirmed Problem Bipolar disorder (90633931) Bipolar affective disorder, remission status unspecified (F31.9) 08/03/19 22 Active confirmed Problem Essential hypertension (93632068) Hypertension, unspecified type (I10) 08/03/19 22 Active confirmed Problem Polyneuropathy due to type 2 diabetes mellitus (114034723) 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.42) 08/03/19 22 Active confirmed Encounters Encounter Location Date Provider Diagnosis [address] [address] 01/27/2024 Barbara Garcia Bipolar affective disorder, remission status unspecified F31.[address] [address] 03/09/2024 Barbara Jose Bipolar affective disorder, remission [...] Insured Coverage Start Date Coverage End Date [facility] Attn Claims Department [address] [place] [address] [phone] [id number] Rudi Frankel Self - patient is the insured 2 [facility] Att[facility] Claims Department [address] [place] [address] [phone] [id number] Rudi Frankel Self - patient is the insured 3 Medical (General) History Medical History History ICD Code type 2 diabetic hypertension hypelipidemia bipolar effective disorder nicotine dependency meth use disorder Surgical History Surgery Date(Month/Year) Hospitalization History Reason Date(Month/Year)
--- OUTSIDE RECORDS SUMMARY | 2024-11-28 16:27 | XMS_ITS | Encounter Summary ---
Author Organization [facility] Address [address] [place] [address] Care Team Providers Care Voice Over Announcer Name Role Phone Clark Graff DO Primary Care Provider [phone] Encounter Details Date Type Department Care Team (Late st Contact Info) Description 08/07/2018 Abstract SFL CONVERSION [address] [place] [address] , Generic Conversion, Social History Tobacco Use [...] documented as of this encounter Care Teams Voice Over Announcer Relationship Specialty Start Date End Date Clark Graff DO [address] [place] [address] PCP - General FAMILY PRACTICE 01/17/20 documented as of this encounter
--- OUTSIDE RECORDS SUMMARY | 2024-11-28 16:28 | XMS_ITS | Clinical Summary ---
Author Organization [facility] Address [address] [place] [address] Care Team Providers Care Sustainable Agriculture Specialist Name Role Phone Clark Graff DO Primary Care Provider [phone] Allergies Active Allergy Reactions Criticality Noted Date [...] on file Legal Sex Female 10:42 PM DATABASE ADMINISTRATION PROJECT MANAGER Gender Identity Not on file [...] PAPILLOMAVIRUS, HIGH-RISK TYPES Routine 04/02/2022 8:00 AM DATABASE ADMINISTRATION PROJECT MANAGER from Last 3 Months or Most Recently Relevant to Health Maintenance Results * HUMAN PAPILLOMAVIRUS, HIGH-RISK TYPES (04/02/2022 8:00 AM DATABASE ADMINISTRATION PROJECT MANAGER) SPEC DESCRIPTION CERVIX 04/04/19 2:54 PM DATABASE ADMINISTRATION PROJECT MANAGER [facility] HPV DNA HIGH RISK NEGATIVE NEGATIVE 04/04/2022 7:19 PM DATABASE ADMINISTRATION PROJECT MANAGER [facility] Comment:SEE CYTOLOGY REPORT 04/02/2022 8:00 AM DATABASE ADMINISTRATION PROJECT MANAGER Marcela Lowe A R COLLECTIONS REP PATHOLOGY/CYTOLOGY ORDERA BLES Final Result [facility] [address] [place] [address], from Last 3 Months or Most Recently Relevant to Health Maintenance Additional Health Concerns Infection Onset Date Last Indicated MRSA 03/16/2018 03/16/2018 Insurance [place] Care Teams Sustainable Agriculture Specialist Relationship Specialty Start Date End Date Clark Graff DO [address] [place] [address] PCP - General FAMILY PRACTICE 01/17/20
== END 2024-11-28 15:45 | disposition home or self-care (01) ==
LOC: CHSED 15:39
PROVIDERS: Emergency Provider Emergency Medicine; PCP Family Medicine
DX: F41.9 Anxiety disorder, unspecified (principal); I10 Essential (primary) hypertension; E11.9 Type 2 diabetes mellitus without complications; F17.210 Nicotine dependence, cigarettes, uncomplicated; Z79.899 Other long term (current) drug therapy
CPT/HCPCS: 96372; 99283; J3360

== ENCOUNTER 2024-12-15 08:55 | Emergency (ER) | payer OTHER, SELFPAY ==
[2024-12-15 09:01] VITALS: BP 161/83; PULSE 113; RESP 14; TEMP 37.2; O2SAT 96
--- OUTSIDE RECORDS SUMMARY | 2024-12-15 09:27 | XMS_ITS | Encounter Summary ---
Author Organization [facility] Address [address] [place] [address] Care Team Providers Care Triple Air Valve Tester Name Role Phone Clark Graff DO Primary Care Provider [phone] Encounter Details Date Type Department Care Team (Late st Contact Info) Description 08/07/2018 Abstract SFL CONVERSION [address] [place] [address] , Generic Conversion, Social History Tobacco Use Types Packs/Day Years Used Date Smoking Tobacco: Never Assessed Comments Unknown Sex and Gender Information Value Date Recorded Sex Assigned at Not on file Legal Sex Female 10:42 PM DATA ANALYTICS ANALYST Gender Identity Not on file Sexual Orientation Not on file documented as of this encounter Plan of Treatment Not on file documented as of this encounter Visit Diagnoses Not on filedocumented in this encounter Additional Health Concerns Infection Onset Date Last Indicated Resolved Time MRSA 03/16/2018 03/16/2018 documented as of this encounter Care Teams Triple Air Valve Tester Relationship Specialty Start Date End Date Clark Graff DO [address] [place] [address] PCP - General FAMILY PRACTICE 01/17/20 documented as of this encounter
--- OUTSIDE RECORDS SUMMARY | 2024-12-15 09:27 | XMS_ITS | Patient Health Record ---
Author Organization [facility] Address [address] [place] [address] Care Team Providers Care Track Grinder Name Role Phone Lito Mathwe Primary Care Provider Barbara Garcia Unavailable [phone] Allergies Allergen (clinical drug ingredient) Drug/Non Drug [...] Status Risk Notes Problem Morbid obesity (disorder) (129187746) Morbid (severe) obesity due to excess calories (E66.01) Active confirmed Problem Tobacco user (754568129) Nicotine dependence, unspecified, uncomplicated (F17.200) Active confirmed Problem Methamphetamine dependence (081668688) Methamphetamine addiction (F15.20) Active confirmed Problem Constipation (18158357) Constipation, unspecified constipation type (K59.00) 08/03/19 22 Active confirmed Problem Hyperlipidaemia (17492327) Hyperlipidemia, unspecified hyperlipidemia type (E78.5) 08/03/19 22 Active confirmed Problem Bipolar disorder (42701560) Bipolar affective disorder, remission status unspecified (F31.9) 08/03/19 22 Active confirmed Problem Essential hypertension (99249403) Hypertension, unspecified type (I10) 08/03/19 22 Active confirmed Problem Polyneuropathy due to type 2 diabetes mellitus (524368967) 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.42) 08/03/19 22 Active confirmed Encounters Encounter Location Date Provider Diagnosis [address] [address] 01/27/2024 Barbara Garcia Bipolar affective disorder, remission status unspecified F31.[address] [address] 03/09/2024 Barbara Jose Bipolar affective disorder, remission [...] Insured Coverage Start Date Coverage End Date [facility] Attn Claims Department [address] [place] [address] [phone] [id number] Rudi Frankel Self - patient is the insured 2 [facility] Att[facility] Claims Department [address] [place] [address] [phone] [id number] Rudi Frankel Self - patient is the insured 3 Medical (General) History Medical History History ICD Code type 2 diabetic hypertension hypelipidemia bipolar effective disorder nicotine dependency meth use disorder Surgical History Surgery Date(Month/Year) Hospitalization History Reason Date(Month/Year)
--- OUTSIDE RECORDS SUMMARY | 2024-12-15 09:27 | XMS_ITS | Clinical Summary ---
Author Organization [facility] Address [address] [place] [address] Care Team Providers Care Aircraft Refueller Name Role Phone Clark Graff DO Primary Care Provider [phone] Allergies Active Allergy Reactions Criticality Noted Date [...] on file Legal Sex Female 10:42 PM APRON MAN Gender Identity Not on file Sexual Orientation [...] series) 2009 Mammogram Screening 2022 COVID-19 Vaccine (1 - 2023-2 5 season) 2024 Influenza Adult (#1) 2024 Cervical Cancer Screening Pa p with [...] PAPILLOMAVIRUS, HIGH-RISK TYPES Routine 04/02/2022 8:00 AM APRON MAN from Last 3 Months or Most Recently Relevant to Health Maintenance Results * HUMAN PAPILLOMAVIRUS, HIGH-RISK TYPES (04/02/2022 8:00 AM APRON MAN) SPEC DESCRIPTION CERVIX 04/04/19 2:54 PM APRON MAN [facility] HPV DNA HIGH RISK NEGATIVE NEGATIVE 04/04/2022 7:19 PM APRON MAN [facility] Comment:SEE CYTOLOGY REPORT 04/02/2022 8:00 AM APRON MAN Marcela Lowe FACILITIES PAINTER PATHOLOGY/CYTOLOGY ORDERA BLES Final Result [facility] [address] [place] [address], from Last 3 Months or Most Recently Relevant to Health Maintenance Additional Health Concerns Infection Onset Date Last Indicated MRSA 03/16/2018 03/16/2018 Insurance [place] Care Teams Aircraft Refueller Relationship Specialty Start Date End Date Clark Graff DO [address] [place] [address] PCP - General FAMILY PRACTICE 01/17/20
--- NOTE | 2024-12-15 09:39 | ED_ITS ---
HPI - Anxiety General Chief Complaint: Anxiety Stated Complaint: anxiety Time Seen by Provider: 12/15/24 08:55 Source: patient Mode of arrival: other Limitations: no limitations History of Present Illness HPI narrative: 44-year-old white female with a long history of polysubstance abuse including methamphetamines, benzodiazepines, tobacco, presents complaining of anxiety, reporting that she ran out of her 15 tablets of Xanax per month prescribed by her PCP. She has a history of frequent visits here the 2nd half of the month when she went out of her medicines, she also has a history of reporting that she is having a bed available for her at [facility] however as excuses why she has not ever been to her previous head alleged [facility] and reservations. She reports that she feels anxious, restless, reports that she has some paresthesias, and needs a shot of Valium Denies recent fever chills, denies chest pain, abdominal pain, nausea vomiting, diarrhea constipation. Related Data Allergies Allergy/AdvReac Type Severity Reaction Status Date / Time fluconazole Allergy Severe Vomiting, Verified 01/11/25 10:14 DIZZINESS, DIARRHEA latex Allergy Intermediate Unknown Verified 01/11/25 10:14 Penicillins Allergy Intermediate Unknown Verified 01/11/25 10:14 propoxyphene (Darvocet-N 100) Allergy Intermediate Unknown Verified 01/11/25 10:14 Review of Systems Review of Systems: ROS is negative except as in HPI PMFSH Past Medical History Medical History Abdominal pain Obesity Diabetic peripheral neuropathy Schizophrenia Nicotine dependence Methamphetamine abuse Hypertension associated with diabetes Hyperlipidemia associated with type 2 diabetes mellitus Tobacco dependence ADHD Depression RAJ (generalized anxiety disorder) Vitamin D deficiency Type 2 diabetes mellitus Bipolar disorder Surgical History Surgical History Status post open reduction with internal fixation of fracture (~2002) Right ankle fracture with subsequent removal hardware 4 years later History of bilateral tubal ligation (~2009) Hx of tonsillectomy (~1994) Family History Family History Mother Ovarian cancer Diabetes mellitus Multiple sclerosis Grandparent Ovarian cancer Father Heart disease Leukemia Social History Social History Social History: She has smoked as much as 2 packs of cigarettes per day. She started smoking when she was 18. She is down to 1 pack of cigarettes per day. She does not drink any alcohol. She smokes marijuana daily. She has smoked and snorted methamphetamines for the last 7 years. She denies any other illicit substance use. She lives with her significant other. She has 9 cats and 3 dogs at home. She has a pit bull, husky and hound dog. Smoking packs per day: 1.5 Smoking cigarettes per day: 30.0 Years smoked: 23 Smoking pack-years: 34.50 Smoking status: Current every day smoker Tobacco type: cigarettes Additional smoking assessment comments: Patient stated she use to smoke 2 packs a day Alcohol intake: never Substance use: current Substance use type: marijuana, amphetamines and methamphetamine Last use: 10/06/2021 marijuana, meth 10/10/2022 Lack of Transportation: YES Lack of Food: Sometimes True Current Housing: I Have Housing Concerned About Future Housing: Decline to Answer Difficulty Paying Gas/Electric Bills: YES Difficulty Paying for Meds: No Currently Unemployed: No Education: High School Diploma/GED Difficulty w/ Childcare or Family Care: No Additional living arrangements comments: Lives with her significant other. Additional occupation/education comments: On disability. Spiritual care concerns: No Exam Narrative: Anxious, looks much older than her stated age, skin changes consistent with longstanding heavy tobacco and methamphetamine use, edentulous, poor hygiene, cheerful the times, then will lunch intl long explanation of something about rehab clip on therapy had in the past, requires frequent re directing, she does not appear in any clinical distress Const: General: cooperative, comfortable, no acute distress, alert, awake and Physically active Orientation/consciousness: patient oriented x3 HENMT: Head: normal to inspection, normocephalic and atraumatic Ears: hearing grossly normal bilaterally and external ears normal Face/Nose/Sinus: Normal external nose present, Normal nares present, Normal nasal mucous membranes and turbinates present and normal facial exam Face and sinus: normal facial exam Mouth: Yes Normal oral and palatal mucosa present, Yes lip normal, Yes tongue normal, Yes oropharynx normal and Yes moist mucous membranes Teeth and gingiva: dentition normal and edentulous Throat: posterior oropharynx normal and tonsils normal ( erythematous) Eyes: General: appearance normal, both eyes and all related structures Alignment and Position: alignment normal and position normal Periorbital: periorbital findings normal Eyelids: eyelids normal Conjunctivae: conjunctivae normal Sclera: sclerae normal Cornea: corneas normal Pupils: Equal, round and reactive pupils present EOM: EOMs intact bilaterally Neck: Neck: normal visual inspection, full ROM and no lymphadenopathy Chest: Chest palpation & inspection: normal inspection of the chest Resp: Effort & Inspection: normal respiratory effort, able to speak in complete sentences, no audible wheezes, no respiratory distress and no use of accessory muscles Auscultation: clear to auscultation bilaterally Cardio: Jugular venous distension: no JVD Rate: regular rate Rhythm: regular rhythm Skin: General skin exam: normal color, no rashes or lesions noted, elasticity normal and turgor normal Neuro: General: patient oriented x3, gait normal, tone normal and moves all extremities Cranial nerves: Yes CN's II-XII intact bilaterally, Yes Equal, round and reactive pupils present and Yes Bilaterally intact EOM present Speech: dysarthria (edentulous) Motor exam (neuro): 5/5 motor strength present throughout and Normal motor muscle tone present throughout Extrem: General: normal to inspection, normal exam except as noted and no pedal edema Psych: Appearance: grossly normal and well kempt Mental Status: mental status grossly normal Speech and movement: Normal speech and movement present Affect: Anxious affect present and Hostile affect present Attitude: cooperative and Belligerent attititude/behavior present Thought process: Normal thought process present Course Course Emergency Course: Differential diagnosis includes but is not limited to generalize anxiety disorder, substance abuse, substance withdrawal, manipulative behavior, noncompliance with medical therapy I reviewed patient's old chart and she has been told numerous times that she cannot come in here and get anxiolytics either in the emergency department or additional prescription. She must keep all benzodiazepine and narcotic medication prescriptions with her PCP. Patient was belligerent, demanding, bank some furniture around, came up to the nurse's station, were rated me, rated the staff, closed the door to her room hard, moderate, cussed, and I explained several times that she needs to have her hair fall out through PCP and not the emergency department. Of interest was the patient's affect was labile, at times quite controlled, movements quite composed, and all evidence of any type of tremors, fidgeting, diaphoresis, Pilar erection were simply not present and then she would instantly turn on 2 tears become agitated, pace, when she went through several rounds of this before finally rating us and walking out the door Patient was informed that we will not be giving benzodiazepines in the emergency department or writing any prescriptions for benzodiazepines Medical decision making complexity and risk low Vital Signs Vital signs: Vital Signs Temperature 37.2 C 12/15/24 09:01 Pulse Rate 113 H 12/15/24 09:01 Respiratory Rate 14 12/15/24 09:01 Blood Pressure 161/83 H 12/15/24 09:01 Pulse Oximetry 96 12/15/24 09:01 Oxygen Delivery Room Air 12/15/24 09:01 Temperature 37.2 C 12/15/24 10:05 Pulse Rate 113 H 12/15/24 10:05 Respiratory Rate 14 12/15/24 10:05 Blood Pressure 161/83 H 12/15/24 10:05 Pulse Oximetry 96 12/15/24 10:05 Oxygen Delivery Room Air 12/15/24 10:05 Discharge Plan Discharge Clinical Impression: Acute anxiety, Manipulative behavior, Benzodiazepine abuse, episodic Patient Disposition: Home Condition: Stable Instructions: Anxiety (ED) Additional Instructions: Encouraged to follow-up with her PCP And encouraged to try to get back in to [facility] for rehab Return to the emergency department as no Patient Language: Chinese Prescriptions: No Action (DME) lancets [TRUEplus Lancets] 33 gauge misc See Rx Instructions .ROUTE .COMPLEX Qty: 100 5RF Dose Instruction: DIRECTED. TESTING 4 TIMES A DAY DX:E11.9 Rx Instructions: DIRECTED. TESTING 4 TIMES A DAY DX:E11.9 (DME) blood sugar diagnostic Strip See Rx Instructions .Route Qty: 50 2RF Rx Instructions: As directed duloxetine 20 mg capsule,delayed release(DR/EC) 20 mg PO BID Qty: 60 0RF ziprasidone HCl 40 mg capsule 80 mg PO BID 30 Days Qty: 120 0RF Rx Instructions: give with food (meal/snack) divalproex [Depakote] 500 mg tablet,delayed release (DR/EC) See Rx Instructions PO Q12H Qty: 90 0RF Rx Instructions: Q12 hours, 500am 1000pm (DME) blood-glucose meter [Blood Glucose Monitoring] Kit See Rx Instructions .Route Qty: 1 0RF Rx Instructions: As directed (DME) pen needle, diabetic [TRUEplus Pen Needle] 29 gauge x 1/2 needle See Rx Instructions .ROUTE .COMPLEX Qty: 100 5RF Dose Instruction: USING 3 TIMES A DAY Rx Instructions: USING 3 TIMES A DAY atenolol 50 mg tablet See Rx Instructions .ROUTE .COMPLEX Qty: 90 3RF Dose Instruction: TAKE ONE TABLET BY MOUTH DAILY Rx Instructions: TAKE ONE TABLET BY MOUTH DAILY simvastatin 40 mg tablet See Rx Instructions .ROUTE .COMPLEX Qty: 90 0RF Dose Instruction: TAKE ONE TABLET BY MOUTH DAILY Rx Instructions: TAKE ONE TABLET BY MOUTH DAILY dapagliflozin propanediol [Farxiga] 10 mg tablet See Rx Instructions .ROUTE .COMPLEX Qty: 90 3RF Dose Instruction: TAKE ONE TABLET BY MOUTH DAILY Rx Instructions: TAKE ONE TABLET BY MOUTH DAILY trazodone 100 mg tablet See Rx Instructions .ROUTE .COMPLEX Qty: 60 0RF Dose Instruction: TAKE TWO TABLETS BY MOUTH AT BEDTIME Rx Instructions: TAKE TWO TABLETS BY MOUTH AT BEDTIME lorazepam [Ativan] 0.5 mg tablet 0.5 mg PO DAILY PRN (Reason: anxiety) Qty: 20 0RF miconazole nitrate 200 mg suppository 200 mg vaginal QHS 3 Days Qty: 3 1RF Trulicity 1.5 mg/0.5 mL pen injector See Rx Instructions .ROUTE .COMPLEX Qty: 2 0RF Dose Instruction: INJECT ONE AND A HALF (1 & 1/2) MG SUBCUTANEOUSLY ONCE WEEKLY Rx Instructions: INJECT ONE AND A HALF (1 & 1/2) MG SUBCUTANEOUSLY ONCE WEEKLY Follow-up/Referrals: Clark Graff, [Primary Care Provider, Family Practice]
--- NOTE | 2024-12-15 09:53 | PC.NURSE ---
pt is restless and demanding, slamming things. reassurance provided. pt states she is going to leave.
[2024-12-15 10:05] VITALS: BP 161/83; PULSE 113; RESP 14; TEMP 37.2; O2SAT 96
== END 2024-12-15 10:05 | disposition home or self-care (01) ==
PROVIDERS: Emergency Provider Emergency Medicine; PCP Family Medicine
DX: F41.9 Anxiety disorder, unspecified (principal); F19.10 Other psychoactive substance abuse, uncomplicated; I10 Essential (primary) hypertension; E11.9 Type 2 diabetes mellitus without complications; E78.5 Hyperlipidemia, unspecified; F17.210 Nicotine dependence, cigarettes, uncomplicated
CPT/HCPCS: 99281

== ENCOUNTER 2024-12-20 14:55 | Emergency (ER) | payer OTHER, SELFPAY ==
--- NOTE | 2024-12-20 15:01 | PC.NURSE ---
RN went to go grab patient from waiting room after room was cleaned, patient no longer in waiting room. Staff at door states she went out to her car, patient never returned.
--- OUTSIDE RECORDS SUMMARY | 2024-12-20 16:05 | XMS_ITS | Encounter Summary ---
Author Organization [facility] Address [address] [place] [address] Care Team Providers Care Departmental Secretary Name Role Phone Clark Graff DO Primary Care Provider Reason for Visit * Reason Comments Anxiety Encounter Details Date Type Department Care Team (Late st Contact Info) Description 12/20/2024 4:05 PM CDT - 12/20/2024 6:02 PM CDT Emergency [facility] [address] [place] [address] [place] [address] Mackenzie White MD [address] [place] [address] Anxiety Discharge Disposition: Home or Self [...] Information Value Date Recorded Sex Assigned at Female 12/20/2024 5:13 PM CDT 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 Gender Identity Not on file Sexual Orientation Not on file documented as of this encounter Last Filed Vital Signs Vital Sign Reading Time Taken Comments Blood Pressure 141/92 12/20/2024 4:48 PM CDT Pulse 84 12/20/2024 4:48 PM CDT Temperature 36.6 C (97.9 F) 12/20/2024 4:48 PM CDT Respiratory Rate 20 12/20/2024 4:48 PM CDT Oxygen Saturation 100% 12/20/2024 4:48 PM CDT Inhaled Oxygen Concentration - - Weight 115.5 kg (254 lb 9.6 oz) 12/20/2024 4:48 PM CDT Height 177.8 cm (5' 10) 12/20/2024 4:48 PM CDT Body Mass Index 36.53 12/20/2024 4:48 PM CDT documented in this encounter Functional Status * Calculated C-SSRS Risk Score (Lifetime/Recent) Answer Date of Assessment Author Status No Risk Indicated 12/20/2024 4:49 PM CDT Asael Dunne RN Active * [place] Suicide Severity Rating Scale (Screener/Recent Self-Report) Question Answer Date of Assessment Author Status 1. Wish to be (Past 1 Month) No 12/20/2024 4:49 PM CDT Arianna Dunne RN Ac tive 2. Non-Specific Active Suicidal Thoughts (Past 1 Month) No 12/20/2024 4:49 PM CDT Arianna Dunne RN Ac tive 6. Suicidal Behavior (Lifetime) No 12/20/2024 4:49 PM CDT Arianna Dunne RN Ac tikobi documented as of this encounter Discharge Instructions * Discharge Instructions* Mackenzie White MD - 12/20/2024 5:57 PM CDT Anxiety attack Follow-up with your doctor as planned on Thursday Return to emergency room for worsening anxiety, difficulty breathing, chest pain, dizziness or other concerns. * Attachments The following attachments cannot be sent through Care Everywhere. * Anxiety Discharge Instructions, Adult (Frisian) documented in this encounter Medications at Time of Discharge FARXIGA 10 MG tablet Take 1 tablet (10 mg total) by mouth daily. 11/15/2024 HYDROcodone-aceta minophen (NORCO) 5-325 MG tablet Take 1 tablet by mouth every 4 (four) hours as needed. 08/09/2024 lamoTRIgine (LAMICTAL) 25 MG tablet Take 1 tablet (25 mg total) by mouth daily. 07/07/2024 OXcarbazepine (TRILEPTAL) 150 MG tablet Take 1 tablet (150 mg total) by mouth 2 (two) times daily. 06/21/2024 TRULICITY 1.5 MG/0.5ML injection Inject 1.5 mg into the skin once a week. 12/12/2024 ALPRAZolam (XANAX) 1 MG tabletIndications :Acute anxiety Take 1 tablet (1 mg total) by mouth 2 (two) times daily as needed for Anxiety. 5 tablet 03/30/2023 ALPRAZolam 1 MG tablet Take 1 tablet (1 mg total) by mouth 2 (two) times daily. atenolol 50 MG tablet Take 1 tablet (50 mg total) by mouth daily. DULoxetine 60 MG capsule Take 2 capsules (120 mg total) by mouth daily. gabapentin 100 MG capsule 1 capsule (100 mg total) 2 (two) times daily. 02/15/2019 insulin glargine (LANTUS SOLOSTAR) 100 UNIT/ML injection (PEN) Inject into the skin nightly at bedtime. insulin lispro (HUMALOG) 100 UNIT/ML injection (VIAL) Inject into the skin 3 (three) times daily before meals. lisinopril (PRINIVIL) 40 MG tablet Take 1 tablet (40 mg total) by mouth daily. metFORMIN 1000 MG tablet Take 1 tablet (1,000 mg total) by mouth 2 (two) times daily with meals. methylphenidate (RITALIN) 20 MG tablet Take 1 tablet (20 mg total) by mouth 2 (two) times daily. simvastatin 40 MG tablet traZODone 100 MG tablet Take 2 tablets (200 mg total) by mouth nightly at bedtime. vitamin D3, cholecalciferol, 5000 UNITS capsule Take 1 capsule (125 mcg total) by mouth daily. ziprasidone (GEODON) 60 MG capsule Take 2 capsules (120 mg total) by mouth 2 (two) times daily with meals. documented as of this encounter ED Notes * Arianna Dunne RN - 12/20/2024 4:46 PM CDT Pt reports to the ER via POV with complaint of anxiety. The pt is unable to get her xanax script filled because her primary physician is only able to prescribe her so many a month. Her next refill isnot until the of the month. The pt states she has been out since last weekend. The pt has a psych consult with [facility] on the . Pt had been taking 1mg BID of her xanax. * Mackenzie White MD - 12/20/2024 4:31 PM CDT Chief Complaint Chief Complaint Patient presents with Anxiety History of Present Illness History obtained from patient and medical records Patient is a 44-year-old female who presents to the emergency room with anxiety. Patient has a longhistory of anxiety and follows up with [facility]. She states her primary care physician prescribes her Xanax but she is in between scripts. Patient states she ran out last week and is notdue to fill her next prescription until January 01. Patient states she is feeling very anxious. No suicidal ideations. No homicidal ideations. Patient states she only gets a certain amount of Xanax and takes them twice daily. No alcohol or drugs. No other complaints. Medical History ALLERGIES: Review of patient's allergies indicates: Allergen Reactions Penicillins Shortness of Breath Fluconazole Diarrhea Latex Rash MEDICATIONS: Prior to Admission medications Medication Sig Start Date End Date Taking? Authorizing Provider FARXIGA 10 MG tablet Take 1 tablet (10 mg total) by mouth daily. 11/15/24 Yes Default History Genericprovider HYDROcodone-acetaminophen (NORCO) 5-325 MG tablet Take 1 tablet by mouth every 4 (four) hours as needed. 08/09/24 Yes Default History Genericprovider lamoTRIgine (LAMICTAL) 25 MG tablet Take 1 tablet (25 mg total) by mouth daily. 07/07/24 Yes Default History Genericprovider OXcarbazepine (TRILEPTAL) 150 MG tablet Take 1 tablet (150 mg total) by mouth 2 (two) times daily. 06/21/24 Yes Default History Genericprovider TRULICITY 1.5 MG/0.5ML injection Inject 1.5 mg into the skin once a week. 12/12/24 Yes Default History Genericprovider ALPRAZolam (XANAX) 1 MG tablet Take 1 tablet (1 mg total) by mouth 2 (two) times daily as needed for Anxiety. 03/30/23 Issa Austin MD ALPRAZolam 1 MG tablet Take 1 tablet (1 mg total) by mouth 2 (two) times daily. [facility] atenolol 50 MG tablet Take 1 tablet (50 mg total) by mouth daily. [facility] DULoxetine 60 MG capsule Take 2 capsules (120 mg total) by mouth daily. [facility] gabapentin 100 MG capsule 1 capsule (100 mg total) 2 (two) times daily. 02/15/19 [facility] Abstract insulin glargine (LANTUS SOLOSTAR) 100 UNIT/ML injection (PEN) Inject into the skin nightly at bedtime. Default History Genericprovider insulin lispro (HUMALOG) 100 UNIT/ML injection (VIAL) Inject into the skin 3 (three) times daily before meals. Default History Genericprovider lisinopril (PRINIVIL) 40 MG tablet Take 1 tablet (40 mg total) by mouth daily. Default History Genericprovider metFORMIN 1000 MG tablet Take 1 tablet (1,000 mg total) by mouth 2 (two) times daily with meals. [facility] methylphenidate (RITALIN) 20 MG tablet Take 1 tablet (20 mg total) by mouth 2 (two) times daily. Default History Genericprovider simvastatin 40 MG tablet [facility] traZODone 100 MG tablet Take 2 tablets (200 mg total) by mouth nightly at bedtime. [facility] Abstract vitamin D3, cholecalciferol, 5000 UNITS capsule Take 1 capsule (125 mcg total) by mouth daily. [facility] Abstract ziprasidone (GEODON) 60 MG capsule Take 2 capsules (120 mg total) by mouth 2 (two) times daily withmeals. [facility] Abstract PAST MEDICAL HISTORY: Past Medical History[1] Anxiety, hypercholesterolemia, type 2 diabetes, PAST SURGICAL HISTORY: Past Surgical History[2] FAMILY HISTORY: Family History[3] SOCIAL HISTORY: Social History[4] 1.5 pack/day smoker, no alcohol, marijuana use Review of Systems Review of Systems Constitutional: Negative. HENT: Negative. Eyes: Negative. Respiratory: Positive for chest tightness. Cardiovascular: Negative. Gastrointestinal: Negative. Endocrine: Negative. Genitourinary: Negative. Musculoskeletal: Negative. Skin: Negative. Allergic/Immunologic: Negative. Neurological: Negative. Hematological: Negative. Psychiatric/Behavioral: Negative for suicidal ideas. The patient is nervous/anxious. Physical Exam Filed Vitals: 12/20/24 1648 BP: (!) 141/92 Pulse: 84 Resp: 20 Temp: 97.9 ??F (36.6 ??C) TempSrc: Temporal SpO2: 100% Weight: 115.5 kg (254 lb 9.6 oz) Height: 1.778 m (5' 10) Physical Exam Vitals and nursing note reviewed. Constitutional: Appearance: She is obese. Comments: anxious HENT: Head: Normocephalic and atraumatic. Cardiovascular: Rate and Rhythm: Regular rhythm. Tachycardia present. Pulses: Normal pulses. Heart sounds: Normal heart sounds. No murmur heard. Pulmonary: Effort: Pulmonary effort is normal. No respiratory distress. Breath sounds: Normal breath sounds. No wheezing or rales. Chest: Chest wall: No tenderness. Abdominal: General: Bowel sounds are normal. There is no distension. Palpations: Abdomen is soft. Tenderness: There is no abdominal tenderness. There is no guarding or rebound. Musculoskeletal: General: No swelling or tenderness. Normal range of motion. Cervical back: Normal range of motion and neck supple. No rigidity or tenderness. Skin: General: Skin is warm and dry. Capillary Refill: Capillary refill takes less than 2 seconds. Neurological: General: No focal deficit present. Mental Status: She is alert and oriented to person, place, and time. Psychiatric: Comments: Anxious but cooperative Diagnostic Studies / Procedures ELECTROCARDIOGRAMS: No results found for this visit on 12/20/24. LABORATORY STUDIES: No results found for this visit on 12/20/24. IMAGING STUDIES No orders to display ED Course / Medical Decision Making Medical Decision Making ED Course as of 12/20/24 175 Tue Dec 20, 2024 1634 Differential diagnosis of anxiety, patient is out of medications Patient will be given a dose of Ativan here. [facility] and previous notes have been reviewed. Patient is not suicidal or homicidal at this time. [MA] 1758 Patient is feeling much better after the Ativan. She states that she has an appointment on Thursday with her primary care physician. Patient requested that I write for more Ativan or Xanax which Kluwinder not feel comfortable doing at this time as she sees [facility] Will discharge home with return instructions. Patient agrees with plan. [MA] ED Course User Index [MA] Mackenzie White MD Clinical Impression Anxiety attack (Primary) Disposition: Discharge [1] History reviewed. No pertinent past medical history. [2] Past Surgical History: Procedure Laterality Date TONSILLECTOMY [3] No family history on file. [4] Social History Tobacco Use Smoking status: Every Day Current packs/day: 2.00 Types: Cigarettes Smokeless tobacco: Never Substance Use Topics Alcohol use: Yes Comment: rarely Drug use: Not Currently Types: Methamphetamines, Marijuana Mackenzie White MD 12/20/24 1757 documented in this encounter Plan of Treatment Not on file documented as of this encounter Visit Diagnoses Diagnosis Anxiety attack- Primary Panic disorder without agoraphobia documented in this encounter Administered Medications Inactive Administered Medications - up to 3 most recent administrations Medication Order MAR Action Action Date Dose Rate Site LORazepam (ATIVAN) tablet 2 mg 2 mg, Oral, Once, 1 dose, On Thu12/20/24 at 1630 Given 12/20/2024 5:05 PM CDT 2 mg documented in this encounter Active and Recently Administered Medications Times are shown in CDT. Scheduled Medication Order 12/18/2024 12/19/2024 12/20/2024 LORazepam (ATIVAN) tablet 2 mg (COMPLETED) 2 mg, Oral, Once, 1 dose, On Thu12/20/24 at 1630 1705 (Given - Provid er: Fatmata Riggs RN) documented in this encounter Additional Health Concerns Infection Onset Date Last Indicated Resolved Time MRSA 03/16/2018 03/16/2018 documented as of this encounter Care Teams Departmental Secretary Relationship Specialty Start Date End Date Clark Graff DO [address] [place] [address] PCP - General FAMILY PRACTICE 01/17/20 documented as of this encounter
--- OUTSIDE RECORDS SUMMARY | 2024-12-20 16:05 | XMS_ITS | Encounter Summary ---
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 * Anxiety Discharge Instructions, Adult (Faroese) documented in this encounter Medications at Time [...] The pt has a psych consult with [employer] on the . Pt had been taking 1mg BID of her xanax. * Mackenzie White MD - 12/20/2024 4:31 PM CDT Chief Complaint Chief Complaint Patient presents with Anxiety History of Present Illness History obtained from patient and medical records Patient is a 44-year-old female who presents to the emergency room with anxiety. Patient has a longhistory of anxiety and follows up with [facility]. She states her primary care physician prescribes [...] be given a dose of Ativan here. [facility] and previous notes have been reviewed. Patient is not suicidal or homicidal at this time. [MA] 1755 Patient is feeling much better after the Ativan. She states that she has an appointment on Thursday with her primary care physician. Patient requested that I write for more Ativan or Xanax which Kulwinder not feel comfortable doing at this time as [facility] Will [facility] home with return instructions. Patient [...] documented as of this encounter Care Teams Remedial Teacher Relationship Specialty Start Date End Date Clark Graff DO [address] [place] [address] PCP - General FAMILY PRACTICE 01/17/20 documented as of this encounter
--- OUTSIDE RECORDS SUMMARY | 2024-12-20 18:45 | XMS_ITS | Encounter Summary ---
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 Wish to be (Past 1 Month) No 12/20/2024 4:49 PM STEFANT Arianna Dunne RN Ac tive 2. Non-Specific Active Suicidal Thoughts (Past 1 Month) No 12/20/2024 4:49 PM STEFANT Arianna Dunne RN Ac tive 6. Suicidal Behavior (Lifetime) No 12/20/2024 4:49 PM CDT Arianna Dunne, RN Cade zamora documented as of this encounter Plan of Treatment Not on file documented as of this encounter Visit Diagnoses Not on filedocumented in this encounter Additional Health Concerns Infection Onset Date Last Indicated Resolved Time MRSA 03/16/2018 03/16/2018 documented as of this encounter Care Teams Assistant At Surgery Relationship Specialty Start Date End Date Clark Graff DO [address] [place] [address] PCP - General FAMILY PRACTICE 01/17/20 documented as of this encounter
--- OUTSIDE RECORDS SUMMARY | 2024-12-20 18:45 | XMS_ITS | Clinical Summary ---
Author Organization [facility] Address [facility] [place] [address] Care Team Providers Care Commercial Credit Head Name Role Phone Clark Graff DO Primary Care Provider [phone] Allergies Active Allergy Reactions Criticality Noted Date [...] needed for Anxiety. 5 tablet 03/30/2023 Active FARXIGA 10 MG tablet Take 1 tablet (10 mg total) by mouth daily. 11/15/2024 Active TRULICITY 1.5 MG/0.5ML injection Inject 1.5 mg into the skin once a week. 12/12/2024 Active HYDROcodone-emily taminophen (NORCO) 5-325 MG tablet Take 1 tablet by mouth every 4 (four) hours as needed. 08/09/2024 Active insulin glargine (LANTUS SOLOSTAR) 100 UNIT/ML injection (PEN) Inject into the skin nightly at bedtime. Active insulin lispro (HUMALOG) 100 UNIT/ML injection (VIAL) Inject into the skin 3 (three) times daily before meals. Active lamoTRIgine (LAMICTAL) 25 MG tablet Take 1 tablet (25 mg total) by mouth daily. 07/07/2024 Active lisinopril (PRINIVIL) 40 MG tablet Take 1 tablet (40 mg total) by mouth daily. Active methylphenidate (RITALIN) 20 MG tablet Take 1 tablet (20 mg total) by mouth 2 (two) times daily. Active OXcarbazepine (TRILEPTAL) 150 MG tablet Take 1 tablet (150 mg total) by mouth 2 (two) times daily. 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 Gender Identity Not on file Sexual [...] Mass Index 36.53 12/20/2024 4:48 PM CDT Plan of Treatment Health Maintenance [...] Mammogram Screening 2022 COVID-19 Vaccine ( - 2024-2 6 season) 2024 Influenza Adult (#1) 2024 Cervical Cancer Screening Pa p with HPV Testing (Age 30 to 64) Every 5 Years 04/02/2027 04/02/2022 Cervical Cancer Screening with HPV 04/02/2027 Hepatitis A Vaccines Aged Out No long er eligible based on patient's age to complete [...] PAPILLOMAVIRUS, HIGH-RISK TYPES Routine 04/02/2022 8:00 AM VP SCI[employer]IFIC AFFAIRS from Last 3 Months or Most Recently Relevant to Health Maintenance Results * HUMAN PAPILLOMAVIRUS, HIGH-RISK TYPES (04/02/2022 8:00 AM VP [employer] AFFAIRS) SPEC DESCRIPTION CERVIX 04/04/19 2:54 PM VP SCIENTIFIC AFFAIRS [facility] HPV DNA HIGH RISK NEGATIVE NEGATIVE 04/04/2022 7:19 PM VP SCI[employer]IFIC AFFAIRS [facility] Comment:SEE CYTOLOGY REPORT 04/02/2022 8:00 AM VP SCIENTIFIC AFFAIRS Marcela Mayo Chrissy VICE PRESIDENT OF CONTRACTS PATHOLOGY/CYTOLOGY ORDERA BLES Final Result [facility] [address] [place] [address], from Last 3 Months or Most Recently Relevant to Health Maintenance Additional Health Concerns Infection Onset Date Last Indicated MRSA 03/16/2018 03/16/2018 Insurance Care Teams Commercial Credit Head Relationship Specialty Start Date End Date Clark Graff DO [address] [place] [address] PCP - General FAMILY PRACTICE 01/17/20
--- OUTSIDE RECORDS SUMMARY | 2024-12-20 18:45 | XMS_ITS | Encounter Summary ---
Author Organization [facility] Address [address] [place] [address] Care Team Providers Care Shellfish Shucker Name Role Phone Clark Graff DO Primary Care Provider [phone] Encounter Details Date Type Department Care Team (Late st Contact Info) Description 08/07/2018 Abstract [facility]VERSION [address] [place] [address] , Generic Conversion, Social History Tobacco Use Types Packs/Day Years Used Date Smoking Tobacco: Never Assessed Comments Unknown Sex and Gender Information Value Date Recorded Sex Assigned at Female 12/20/2024 5:13 PM CDT 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
--- OUTSIDE RECORDS SUMMARY | 2024-12-20 18:46 | XMS_ITS | Patient Health Record ---
Author Organization [facility] Address [address] [place] [address] Care Team Providers Care Data Manager Name Role Phone Lito Mathew Primary Care Provider Barbara Garcia Unavailable [phone] Allergies Allergen (clinical drug ingredient) Drug/Non Drug [...] Status Risk Notes Problem Morbid obesity (disorder) (230992591) Morbid (severe) obesity due to excess calories (E66.01) Active confirmed Problem Tobacco user (244225432) Nicotine dependence, unspecified, uncomplicated (F17.200) Active confirmed Problem Methamphetamine dependence (862803400) Methamphetamine addiction (F15.20) Active confirmed Problem Constipation (21590766) Constipation, unspecified constipation type (K59.00) 08/03/19 22 Active confirmed Problem Hyperlipidaemia (31224962) Hyperlipidemia, unspecified hyperlipidemia type (E78.5) 08/03/19 22 Active confirmed Problem Bipolar disorder (38157653) Bipolar affective disorder, remission status unspecified (F31.9) 08/03/19 22 Active confirmed Problem Essential hypertension (61303787) Hypertension, unspecified type (I10) 08/03/19 22 Active confirmed Problem Polyneuropathy due to type 2 diabetes mellitus (508221436) 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.42) 08/03/19 22 Active confirmed Encounters Encounter Location Date Provider Diagnosis [address] [address] 01/27/2024 Barbara Garcia Bipolar affective disorder, remission status unspecified F31.[address] [address] 03/09/2024 Barbara Jose Bipolar affective disorder, remission [...] Insured Coverage Start Date Coverage End Date [facility] Attn Claims Department [address] [place] [address] [phone] [id number] Rudi Frankel Self - patient is the insured 2 [facility] Att[facility] Claims Department [address] [place] [address] [phone] [id number] Rudi Frankel Self - patient is the insured 3 Medical (General) History Medical History History ICD Code type 2 diabetic hypertension hypelipidemia bipolar effective disorder nicotine dependency meth use disorder Surgical History Surgery Date(Month/Year) Hospitalization History Reason Date(Month/Year)
--- OUTSIDE RECORDS SUMMARY | 2024-12-21 08:09 | XMS_ITS | Encounter Summary ---
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
--- OUTSIDE RECORDS SUMMARY | 2024-12-21 08:09 | XMS_ITS | Encounter Summary ---
Author Organization [facility] Address [address] [place] [address] Care Team Providers Care Cinder Pit Worker Name Role Phone Clark Graff DO Primary Care Provider [phone] Encounter Details Date Type Department Care Team (Late st Contact Info) Description 08/07/2018 Abstract SFL CONVERSION [address] [place] [address] , Generic Conversion, Social History Tobacco Use Types Packs/Day Years Used Date Smoking Tobacco: Never Assessed Comments Unknown Sex and Gender Information Value Date Recorded Sex Assigned at Female 12/20/2024 5:13 PM CDT Legal Sex Female 10:42 PM CREELER Gender Identity Not on file Sexual Orientation Not on file documented as of this encounter Plan of Treatment Not on file documented as of this encounter Visit Diagnoses Not on filedocumented in this encounter Additional Health Concerns Infection Onset Date Last Indicated Resolved Time MRSA 03/16/2018 03/16/2018 documented as of this encounter Care Teams Cinder Pit Worker Relationship Specialty Start Date End Date Clark Graff DO [address] [place] [address] PCP - General FAMILY PRACTICE 01/17/20 documented as of this encounter
--- OUTSIDE RECORDS SUMMARY | 2024-12-21 08:09 | XMS_ITS | Patient Health Record ---
Author Organization [facility] Address [address] [place] [address] Care Team Providers Care Frame Carver Spindle Name Role Phone Lito Mathew Primary Care Provider Barbara Garcia Unavailable [phone] Allergies Allergen (clinical drug ingredient) Drug/Non Drug [...] Status Risk Notes Problem Morbid obesity (disorder) (594243476) Morbid (severe) obesity due to excess calories (E66.01) Active confirmed Problem Tobacco user (510448810) Nicotine dependence, unspecified, uncomplicated (F17.200) Active confirmed Problem Methamphetamine dependence (160638072) Methamphetamine addiction (F15.20) Active confirmed Problem Constipation (57715929) Constipation, unspecified constipation type (K59.00) 08/03/19 22 Active confirmed Problem Hyperlipidaemia (79092164) Hyperlipidemia, unspecified hyperlipidemia type (E78.5) 08/03/19 22 Active confirmed Problem Bipolar disorder (90683994) Bipolar affective disorder, remission status unspecified (F31.9) 08/03/19 22 Active confirmed Problem Essential hypertension (76395291) Hypertension, unspecified type (I10) 08/03/19 22 Active confirmed Problem Polyneuropathy due to type 2 diabetes mellitus (651797954) 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.42) 08/03/19 22 Active confirmed Encounters Encounter Location Date Provider Diagnosis [address] [address] 01/27/2024 Barbara Garcia Bipolar affective disorder, remission status unspecified F31.[address] [address] 03/09/2024 Barbara Jose Bipolar affective disorder, remission [...] Insured Coverage Start Date Coverage End Date [facility] Attn Claims Department [address] [place] [address] [phone] [id number] Rudi Frankel Self - patient is the insured 2 [facility] Att[facility] Claims Department [address] [place] [address] [phone] [id number] Rudi Frankel Self - patient is the insured 3 Medical (General) History Medical History History ICD Code type 2 diabetic hypertension hypelipidemia bipolar effective disorder nicotine dependency meth use disorder Surgical History Surgery Date(Month/Year) Hospitalization History Reason Date(Month/Year)
--- OUTSIDE RECORDS SUMMARY | 2024-12-21 08:09 | XMS_ITS | Clinical Summary ---
Author Organization [facility] Address [facility] [place] [address] Care Team Providers Care Food Preparation Supervisor Name Role Phone Clark Graff DO Primary Care Provider [phone] Allergies Active Allergy Reactions Criticality Noted Date [...] CDT - 12/20/2024 6:02 PM CDT Emergency [facility] [address] [place] [address] [place] [id number] Mackenzie White MD Anxiety Discharge Disposition: Home [...] PM CDT Legal Sex Female 10:42 PM BONE GLUE MAKER Gender Identity Not on file Sexual [...] PAPILLOMAVIRUS, HIGH-RISK TYPES Routine 04/02/2022 8:00 AM BONE GLUE MAKER from Last 3 Months or Most Recently Relevant to Health Maintenance Results * HUMAN PAPILLOMAVIRUS, HIGH-RISK TYPES (04/02/2022 8:00 AM BONE GLUE MAKER) SPEC DESCRIPTION CERVIX 04/04/19 2:54 PM BONE GLUE MAKER [facility] HPV DNA HIGH RISK NEGATIVE NEGATIVE 04/04/2022 7:19 PM BONE GLUE MAKER [facility] Comment:SEE CYTOLOGY REPORT 04/02/2022 8:00 AM BONE GLUE MAKER Marcela Mayo Chrissy CONFERENCE CONCIERGE PATHOLOGY/CYTOLOGY ORDERA BLES Final Result [facility] [address] [place] [address], from Last 3 Months or Most Recently Relevant to Health Maintenance Additional Health Concerns Infection Onset Date Last Indicated MRSA 03/16/2018 03/16/2018 Insurance Care Teams Food Preparation Supervisor Relationship Specialty Start Date End Date Clark Graff DO [address] [place] [address] PCP - General FAMILY PRACTICE 01/17/20
--- NOTE | 2024-12-26 07:19 | ED.ANXIETY ---
HPI - Anxiety General Stated Complaint: med refill History of Present Illness HPI narrative: LWBS Related Data Allergies Allergy/AdvReac Type Severity Reaction Status Date / Time fluconazole Allergy Severe Vomiting, Verified 12/15/24 09:02 DIZZINESS, DIARRHEA latex Allergy Intermediate Unknown Verified 12/15/24 09:02 Penicillins Allergy Intermediate Unknown Verified 12/15/24 09:02 propoxyphene (Darvocet-N 100) Allergy Intermediate Unknown Verified 12/15/24 09:02 [facility] Past Medical History Medical History Abdominal pain Obesity Diabetic peripheral neuropathy Schizophrenia Nicotine dependence Methamphetamine abuse Hypertension associated with diabetes Hyperlipidemia associated with type 2 diabetes mellitus Tobacco dependence ADHD Depression RAJ (generalized anxiety disorder) Vitamin D deficiency Type 2 diabetes mellitus Bipolar disorder Surgical History Surgical History Status post open reduction with internal fixation of fracture (~2002) Right ankle fracture with subsequent removal hardware 4 years later History of bilateral tubal ligation (~2009) Hx of tonsillectomy (~1994) Family History Family History Mother Ovarian cancer Diabetes mellitus Multiple sclerosis Grandparent Ovarian cancer Father Heart disease Leukemia Social History Social History Social History: She has smoked as much as 2 packs of cigarettes per day. She started smoking when she was 18. She is down to 1 pack of cigarettes per day. She does not drink any alcohol. She smokes marijuana daily. She has smoked and snorted methamphetamines for the last 7 years. She denies any other illicit substance use. She lives with her significant other. She has 9 cats and 3 dogs at home. She has a pit bull, husky and hound dog. Smoking packs per day: 1.5 Smoking cigarettes per day: 30.0 Years smoked: 23 Smoking pack-years: 34.50 Smoking status: Current every day smoker Tobacco type: cigarettes Additional smoking assessment comments: Patient stated she use to smoke 2 packs a day Alcohol intake: never Substance use: current Substance use type: marijuana and prescription drug Last use: 10/06/2021 marijuana, meth 10/10/2022 Lack of Transportation: YES Lack of Food: Sometimes True Current Housing: I Have Housing Concerned About Future Housing: Decline to Answer Difficulty Paying Gas/Electric Bills: YES Difficulty Paying for Meds: No Currently Unemployed: No Education: High School Diploma/GED Difficulty w/ Childcare or Family Care: No Additional living arrangements comments: Lives with her significant other. Additional occupation/education comments: On disability. Spiritual care concerns: No Discharge Plan Discharge Clinical Impression: Anxiety Patient Disposition: Left Without Being Sn Triaged Patient Language: Solomon Islander Prescriptions: No Action (DME) lancets [TRUEplus Lancets] 33 gauge misc See Rx Instructions .ROUTE .COMPLEX Qty: 100 5RF Dose Instruction: DIRECTED. TESTING 4 TIMES A DAY DX:E11.9 Rx Instructions: DIRECTED. TESTING 4 TIMES A DAY DX:E11.9 (DME) blood sugar diagnostic Strip See Rx Instructions .Route Qty: 50 2RF Rx Instructions: As directed alprazolam 2 mg tablet 2 mg PO BID PRN (Reason: anxiety) Qty: 20 0RF duloxetine 60 mg capsule,delayed release(DR/EC) See Rx Instructions .ROUTE .COMPLEX Qty: 180 3RF Dose Instruction: TAKE TWO CAPSULES BY MOUTH EVERY MORNING Rx Instructions: TAKE TWO CAPSULES BY MOUTH EVERY MORNING ziprasidone HCl 60 mg capsule See Rx Instructions .ROUTE .COMPLEX Qty: 180 0RF Dose Instruction: TAKE ONE CAPSULE BY MOUTH EVERY MORNING AND TWO CASPULES EVERY EVENING Rx Instructions: TAKE ONE CAPSULE BY MOUTH EVERY MORNING AND TWO CASPULES EVERY EVENING trazodone 100 mg tablet See Rx Instructions .ROUTE .COMPLEX Qty: 60 0RF Dose Instruction: TAKE TWO TABLETS BY MOUTH AT BEDTIME Rx Instructions: TAKE TWO TABLETS BY MOUTH AT BEDTIME (DME) blood-glucose meter [Blood Glucose Monitoring] Kit See Rx Instructions .Route Qty: 1 0RF Rx Instructions: As directed (DME) pen needle, diabetic [TRUEplus Pen Needle] 29 gauge x 1/2 needle See Rx Instructions .ROUTE .COMPLEX Qty: 100 5RF Dose Instruction: USING 3 TIMES A DAY Rx Instructions: USING 3 TIMES A DAY metformin 1,000 mg tablet See Rx Instructions .ROUTE .COMPLEX Qty: 180 3RF Dose Instruction: TAKE ONE TABLET BY MOUTH TWICE A DAY Rx Instructions: TAKE ONE TABLET BY MOUTH TWICE A DAY atenolol 50 mg tablet See Rx Instructions .ROUTE .COMPLEX Qty: 90 3RF Dose Instruction: TAKE ONE TABLET BY MOUTH DAILY Rx Instructions: TAKE ONE TABLET BY MOUTH DAILY ondansetron 4 mg tablet,disintegrating See Rx Instructions .ROUTE .COMPLEX Qty: 30 0RF Dose Instruction: DISSOLVE ONE TABLET ON TONGUE EVERY FOUR HOURS NEEDED FOR NAUSEA AND VOMITING FOR THREE DAYS Rx Instructions: DISSOLVE ONE TABLET ON TONGUE EVERY FOUR HOURS NEEDED FOR NAUSEA AND VOMITING FOR THREE DAYS simvastatin 40 mg tablet See Rx Instructions .ROUTE .COMPLEX Qty: 90 0RF Dose Instruction: TAKE ONE TABLET BY MOUTH DAILY Rx Instructions: TAKE ONE TABLET BY MOUTH DAILY gabapentin 100 mg capsule See Rx Instructions .ROUTE .COMPLEX Qty: 180 0RF Dose Instruction: TAKE ONE CAPSULE BY MOUTH IN THE MORNING AND TWO CAPSULES IN THE EVENING Rx Instructions: TAKE ONE CAPSULE BY MOUTH IN THE MORNING AND TWO CAPSULES IN THE EVENING dapagliflozin propanediol [Farxiga] 10 mg tablet See Rx Instructions .ROUTE .COMPLEX Qty: 90 3RF Dose Instruction: TAKE ONE TABLET BY MOUTH DAILY Rx Instructions: TAKE ONE TABLET BY MOUTH DAILY Trulicity 1.5 mg/0.5 mL pen injector See Rx Instructions .ROUTE .COMPLEX Qty: 2 0RF Dose Instruction: INJECT ONE AND A HALF (1 & 1/2) MG SUBCUTANEOUSLY ONCE WEEKLY Rx Instructions: INJECT ONE AND A HALF (1 & 1/2) MG SUBCUTANEOUSLY ONCE WEEKLY Follow-up/Referrals: Clark Graff, [Primary Care Provider, Family Practice]
== END 2024-12-20 15:01 | disposition left against medical advice (07) ==
LOC: CHSED 12-21 08:01
PROVIDERS: Emergency Provider Emergency Medicine; PCP Family Medicine
DX: Z53.21 Procedure and treatment not carried out due to patient leaving prior to being seen by health care provider (principal)
CPT/HCPCS: 99199

== ENCOUNTER 2025-01-06 09:03 | Emergency (ER) | payer OTHER, SELFPAY ==
[2025-01-06 09:07] VITALS: BP 124/88; PULSE 85; RESP 22; TEMP 36.8; O2SAT 98
--- NOTE | 2025-01-06 09:12 | ED.ANXIETY ---
HPI - Anxiety General Chief Complaint: Anxiety Stated Complaint: anxiety, meth use Source: patient Mode of arrival: ambulatory Limitations: no limitations History of Present Illness HPI narrative: Patient is a 44-year-old female here for anxiety. No suicide or homicide ideation. Patient comes to the ER on a regular basis for same complaints. Unfortunately, she started using methamphetamines again. MD complaint: anxiety Onset (ago): day(s) (One) Symptoms: perioral numbness/tingling, dry mouth, sense of impending doom and muscle cramps Severity: moderate Quality: constant Place: home History of similar episodes: Yes Provoking factors: emotional stress Relieving factors: medication Exacerbating factors: thinking about event Associated symptoms: denies other symptoms Related Data Allergies Allergy/AdvReac Type Severity Reaction Status Date / Time fluconazole Allergy Severe Vomiting, Verified 01/06/25 09:42 DIZZINESS, DIARRHEA latex Allergy Intermediate Unknown Verified 01/06/25 09:42 Penicillins Allergy Intermediate Unknown Verified 01/06/25 09:42 propoxyphene (Darvocet-N 100) Allergy Intermediate Unknown Verified 01/06/25 09:42 Review of Systems Review of Systems: All systems reviewed & are unremarkable except as noted in HPI and below Constitutional: Constitutional: Reports no additional constitutional complaints Eyes: Eyes: Reports no additional eye complaints ENT: Reports system reviewed and no additional complaints, except as documented Cardiovascular: Cardiovascular: Reports no additional cardiovascular complaints Respiratory: Respiratory: Reports no additional respiratory complaints Gastrointestinal: Gastrointestinal: Reports no additional gastrointestinal complaints Genitourinary: Genitourinary: Reports no additional female genitourinary complaints Musculoskeletal: Musculoskeletal: Reports no additional musculoskeletal complaints Integumentary/Breasts: Skin/Breast: Reports system reviewed and no additional complaints, except as docu Neurologic: Reports system reviewed and no additional complaints, except as documented Psychiatric: Psychiatric: Reports no additional psychiatric complaints Endocrine: Endocrine: Reports no additional endocrine complaints Hematologic/Lymphatic: Hematologic/Lymphatic: Reports no additional hematologic/lymphatic complaints Allergic/Immunologic: Allergic/Immunologic: Reports no additional allergic/immunologic complaints PMFSH Past Medical History Medical History Abdominal pain Obesity Diabetic peripheral neuropathy Schizophrenia Nicotine dependence Methamphetamine abuse Hypertension associated with diabetes Hyperlipidemia associated with type 2 diabetes mellitus Tobacco dependence ADHD Depression RAJ (generalized anxiety disorder) Vitamin D deficiency Type 2 diabetes mellitus Bipolar disorder Surgical History Surgical History Status post open reduction with internal fixation of fracture (~2002) Right ankle fracture with subsequent removal hardware 4 years later History of bilateral tubal ligation (~2009) Hx of tonsillectomy (~1994) Family History Family History Mother Ovarian cancer Diabetes mellitus Multiple sclerosis Grandparent Ovarian cancer Father Heart disease Leukemia Social History Social History Social History: She has smoked as much as 2 packs of cigarettes per day. She started smoking when she was 18. She is down to 1 pack of cigarettes per day. She does not drink any alcohol. She smokes marijuana daily. She has smoked and snorted methamphetamines for the last 7 years. She denies any other illicit substance use. She lives with her significant other. She has 9 cats and 3 dogs at home. She has a pit bull, husky and hound dog. Smoking packs per day: 1.5 Smoking cigarettes per day: 30.0 Years smoked: 23 Smoking pack-years: 34.50 Tobacco type: cigarettes Additional smoking assessment comments: Patient stated she use to smoke 2 packs a day Alcohol intake: never Substance use: current Substance use type: methamphetamine Last use: 10/06/2021 marijuana, meth 10/10/2022 Lack of Transportation: YES Lack of Food: Sometimes True Current Housing: I Have Housing Concerned About Future Housing: Decline to Answer Difficulty Paying Gas/Electric Bills: YES Difficulty Paying for Meds: No Currently Unemployed: No Education: High School Diploma/GED Difficulty w/ Childcare or Family Care: No Additional living arrangements comments: Lives with her significant other. Additional occupation/education comments: On disability. Spiritual care concerns: No Exam Const: General: healthy appearing Nutritional Appearance: well nourished Orientation/consciousness: patient oriented x3 HENMT: Head: normal to inspection Ears: external ears normal Face/Nose/Sinus: Normal external nose present Eyes: Conjunctivae: conjunctivae normal Pupils: Equal, round and reactive pupils present EOM: EOMs intact bilaterally Neck: Neck: normal visual inspection Chest: Chest palpation & inspection: normal inspection of the chest Resp: Effort & Inspection: normal respiratory effort and not labored Auscultation: clear to auscultation bilaterally and no crackles Cardio: Rate: regular rate Rhythm: regular rhythm Heart sounds: no murmurs GI: Inspection: non-distended GI Palp: Yes Soft to palpation and No Tenderness to palpation present (GI) Auscultation: normal bowel sounds : General: Yes bladder normal to palpation Back/Spine/Pelvis: Back: no CVA tenderness Skin: General skin exam: normal color Rashes: no rashes Wounds: no wounds Neuro: General: patient oriented x3, moves all extremities and no meningeal signs Psych: Mental Status: mental status grossly normal Affect: Anxious affect present Attitude: cooperative Other: No suicide or homicide ideations; she is having a flare of her anxiety of typical variation; no psychosis Course Vital Signs Vital signs: Vital Signs Temperature 36.8 C 01/06/25 09:07 Pulse Rate 85 01/06/25 09:07 Respiratory Rate 22 H 01/06/25 09:07 Blood Pressure 124/88 01/06/25 09:07 Pulse Oximetry 98 01/06/25 09:07 Oxygen Delivery Room Air 01/06/25 09:07 Temperature 36.8 C 01/06/25 09:07 Pulse Rate 85 01/06/25 09:07 Respiratory Rate 22 H 01/06/25 09:07 Blood Pressure 124/88 01/06/25 09:07 Pulse Oximetry 98 01/06/25 09:07 Oxygen Delivery Room Air 01/06/25 09:07 MDM - Anxiety MDM Narrative Medical decision making narrative: Patient is a 44-year-old female with known anxiety disorder. She has restarted using methamphetamine. She gets her Xanax for her primary doctor. She sees a psychiatrist next week. Ativan oral. We had a discussion about recurrent ER visits for similar situation is today and that she needs to follow up with her doctors as an outpatient and not use the emergency room for things that should be done with her primary and psychiatrist. Patient wanted a sandwich and a drink. Discharge Plan Discharge Clinical Impression: Anxiety Patient Disposition: Home Condition: Stable Instructions: Anxiety (ED) Patient Language: New Zealander Prescriptions: No Action (DME) lancets [TRUEplus Lancets] 33 gauge misc See Rx Instructions .ROUTE .COMPLEX Qty: 100 5RF Dose Instruction: DIRECTED. TESTING 4 TIMES A DAY DX:E11.9 Rx Instructions: DIRECTED. TESTING 4 TIMES A DAY DX:E11.9 ([facility]) blood sugar diagnostic Strip See Rx Instructions .Route Qty: 50 2RF Rx Instructions: As directed duloxetine 60 mg capsule,delayed release(DR/EC) See Rx Instructions .ROUTE .COMPLEX Qty: 180 3RF Dose Instruction: TAKE TWO CAPSULES BY MOUTH EVERY MORNING Rx Instructions: TAKE TWO CAPSULES BY MOUTH EVERY MORNING ziprasidone HCl 60 mg capsule See Rx Instructions .ROUTE .COMPLEX Qty: 180 0RF Dose Instruction: TAKE ONE CAPSULE BY MOUTH EVERY MORNING AND TWO CASPULES EVERY EVENING Rx Instructions: TAKE ONE CAPSULE BY MOUTH EVERY MORNING AND TWO CASPULES EVERY EVENING ([facility]) blood-glucose meter [Blood Glucose Monitoring] Kit See Rx Instructions .Route Qty: 1 0RF Rx Instructions: As directed ([facility]) pen needle, diabetic [TRUEplus Pen Needle] 29 gauge x 1/2 needle See Rx Instructions .ROUTE .COMPLEX Qty: 100 5RF Dose Instruction: USING 3 TIMES A DAY Rx Instructions: USING 3 TIMES A DAY atenolol 50 mg tablet See Rx Instructions .ROUTE .COMPLEX Qty: 90 3RF Dose Instruction: TAKE ONE TABLET BY MOUTH DAILY Rx Instructions: TAKE ONE TABLET BY MOUTH DAILY simvastatin 40 mg tablet See Rx Instructions .ROUTE .COMPLEX Qty: 90 0RF Dose Instruction: TAKE ONE TABLET BY MOUTH DAILY Rx Instructions: TAKE ONE TABLET BY MOUTH DAILY gabapentin 100 mg capsule See Rx Instructions .ROUTE .COMPLEX Qty: 180 0RF Dose Instruction: TAKE ONE CAPSULE BY MOUTH IN THE MORNING AND TWO CAPSULES IN THE EVENING Rx Instructions: TAKE ONE CAPSULE BY MOUTH IN THE MORNING AND TWO CAPSULES IN THE EVENING dapagliflozin propanediol [Farxiga] 10 mg tablet See Rx Instructions .ROUTE .COMPLEX Qty: 90 3RF Dose Instruction: TAKE ONE TABLET BY MOUTH DAILY Rx Instructions: TAKE ONE TABLET BY MOUTH DAILY Trulicity 1.5 mg/0.5 mL pen injector See Rx Instructions .ROUTE .COMPLEX Qty: 2 0RF Dose Instruction: INJECT ONE AND A HALF (1 & 1/2) MG SUBCUTANEOUSLY ONCE WEEKLY Rx Instructions: INJECT ONE AND A HALF (1 & 1/2) MG SUBCUTANEOUSLY ONCE WEEKLY alprazolam 2 mg tablet 2 mg PO BID PRN (Reason: anxiety) Qty: 20 0RF trazodone 100 mg tablet See Rx Instructions .ROUTE .COMPLEX Qty: 60 0RF Dose Instruction: TAKE TWO TABLETS BY MOUTH AT BEDTIME Rx Instructions: TAKE TWO TABLETS BY MOUTH AT BEDTIME Follow-up/Referrals: Clark Graff DO [Primary Care Provider, [facility]] Time of Disposition: 09:45
[2025-01-06] MEDS: LORazepam (*CRX) 1 MG TABLET PO (09:33)
--- OUTSIDE RECORDS SUMMARY | 2025-01-06 09:38 | XMS_ITS | Patient Health Record ---
Author Organization [facility] Address [address] [place] [address] Care Team Providers Care Personal Banking Representative Name Role Phone Lito Mathew Primary Care Provider [phone] Barbraa Garcia Unavailable [phone] Allergies Allergen (clinical drug ingredient) Drug/Non Drug [...] Status Risk Notes Problem Morbid obesity (disorder) (428224607) Morbid (severe) obesity due to excess calories (E66.01) Active confirmed Problem Tobacco user (050953624) Nicotine dependence, unspecified, uncomplicated (F17.200) Active confirmed Problem Methamphetamine dependence (470859764) Methamphetamine addiction (F15.20) Active confirmed Problem Constipation (30253978) Constipation, unspecified constipation type (K59.00) 08/03/19 22 Active confirmed Problem Hyperlipidaemia (63350439) Hyperlipidemia, unspecified hyperlipidemia type (E78.5) 08/03/19 Active confirmed Problem Bipolar disorder (00536249) Bipolar affective disorder, remission status unspecified (F31.9) 08/03/19 Active confirmed Problem Essential hypertension (90349111) Hypertension, unspecified type (I10) 08/03/19 Active confirmed Problem Polyneuropathy due to type 2 diabetes mellitus (533391183) 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.42) 08/03/19 22 Active confirmed Encounters Encounter Location Date Provider Diagnosis [address] [address] 01/27/2024 Barbara Sanmerrybereina Bipolar affective disorder, remission status unspecified F31.[address] [address] 03/09/2024 Barbara Sanyamini Bipolar affective disorder, remission [...] Insured Coverage Start Date Coverage End Date [facility] Attn Claims Department [address] [place] [address] [phone] [id number] Rudi Frankel Self - patient is the insured 2 [facility] [address] [place] [address] [phone] [id number] uRdi Frankel Self - patient is the insured 3 Medical (General) History Medical History History ICD Code type 2 diabetic hypertension hypelipidemia bipolar effective disorder nicotine dependency meth use disorder Surgical History Surgery Date(Month/Year) Hospitalization History Reason Date(Month/Year)
== END 2025-01-06 09:56 | disposition home or self-care (01) ==
PROVIDERS: Emergency Provider Emergency Medicine; PCP Family Medicine
DX: F41.9 Anxiety disorder, unspecified (principal); E11.9 Type 2 diabetes mellitus without complications; I10 Essential (primary) hypertension; E78.5 Hyperlipidemia, unspecified; F17.210 Nicotine dependence, cigarettes, uncomplicated
CPT/HCPCS: 99283; A9270

== ENCOUNTER 2025-01-06 16:22 | Emergency (ER) | payer OTHER, SELFPAY ==
[2025-01-06 16:24] VITALS: BP 124/72; PULSE 89; RESP 20; TEMP 36.5; O2SAT 98
--- OUTSIDE RECORDS SUMMARY | 2025-01-06 16:24 | XMS_ITS | Clinical Summary ---
Author Organization [facility] Address [address] [place] [address] Care Team Providers Care Bench Shear Operator Name Role Phone DajuanClark Primary Care Provider [phone] Allergies Active Allergy Reactions Criticality Noted Date [...] Encounters Date Type Department Care Team Description 12/26/2024 2:47 PM CDT - 12/26/2024 3:20 PM CDT Emergency [facility] [address] [place] [address] [place] [address] Wes Rob MD Anxiety Discharge Disposition: Home or Self Care (Routine Discharge) 12/26/2024 Travel 12/20/2024 4:05 PM CDT - 12/20/2024 6:02 PM CDT Emergency [facility] [address] [place] [address] [place] [address] Mackenzie White MD Anxiety Discharge Disposition: Home [...] PM CDT Legal Sex Female 10:42 PM GRIT BLASTER Gender Identity Not on file Sexual Orientation Not on file Last Filed Vital Signs Vital Sign Reading Time Taken Comments Blood Pressure 136/81 12/26/2024 3:00 PM CDT Pulse 93 12/26/2024 2:51 PM CDT Temperature 36.4 C (97.5 F) 12/26/2024 2:51 PM CDT Respiratory Rate 18 12/26/2024 2:51 PM CDT Oxygen Saturation 99% 12/26/2024 3:00 PM CDT Inhaled Oxygen Concentration - - Weight 115.7 kg (255 lb) 12/26/2024 2:51 PM CDT Height 177.8 cm (5' 10) 12/26/2024 2:51 PM CDT Body Mass Index 36.59 12/26/2024 2:51 PM CDT Plan of Treatment Health Maintenance [...] PAPILLOMAVIRUS, HIGH-RISK TYPES Routine 04/02/2022 8:00 AM GRIT BLASTER from Last 3 Months or Most Recently Relevant to Health Maintenance Results * HUMAN PAPILLOMAVIRUS, HIGH-RISK TYPES (04/02/2022 8:00 AM GRIT BLASTER) SPEC DESCRIPTION CERVIX 04/04/19 23 2:54 PM GRIT BLASTER [facility] HPV DNA HIGH RISK NEGATIVE NEGATIVE 04/04/2022 7:19 PM GRIT BLASTER [facility] Comment:SEE CYTOLOGY REPORT 04/02/2022 8:00 AM GRIT BLASTER Marcela Lowe SOCIAL SERVICES COUNSELOR PATHOLOGY/CYTOLOGY ORDERA GOLD Final Result [facility] [address] [place] [address], from Last 3 Months or Most Recently Relevant to Health Maintenance Additional Health Concerns Infection Onset Date Last Indicated MRSA 03/16/2018 03/16/2018 Insurance [address] [place] [address] VASSAR Care Teams Bench Shear Operator Relationship Specialty Start Date End Date Clark Graff DO [address] [place] [address] PCP - General FAMILY PRACTICE 01/17/20
--- NOTE | 2025-01-06 16:25 | ECG_ITS ---
Test Date: 2025-01-06 16:47:28 Measurements Intervals [place] Rate: 83 P: 69 TX: 169 QRS: 8 QRSD: 100 T: 20 QT: 392 QTc: 461 Interpretive Statements SINUS RHYTHM INDETERMINATE AXIS NONSPECIFIC ST ABNORMALITY ABNORMAL ECG Electronically Signed On 01-06-2025 17:31:03 INT[employer]LECTUAL [employer]ERTY [employer] by Alcon Vicente M.D.
--- NOTE | 2025-01-06 16:25 | ED_ITS ---
HPI - Psych General Chief Complaint: Psychiatric Symptoms Stated Complaint: SI Time Seen by Provider: 01/06/25 16:24 Source: patient Mode of arrival: ambulatory Limitations: no limitations History of Present Illness HPI Narrative: Patient is a 44-year-old female who was here earlier today for anxiety now presents by EMS for suicidal ideation. She has a plan to shoot herself in the head and does have access to a gun according to the patient. Patient is known to use methamphetamine. She said her stress is due to people at the house not letting her rest and her animals at home. MD complaint: suicidal ideation and feels depressed Onset (ago): day(s) (One) Duration: constant History of same: Yes Relieving factors: none Exacerbating factors: drug use Context: recent drug abuse, not taking psychiatric medications and significant life stressor Associated psychiatric symptoms: depression, suicidal ideation and racing thoughts Associated symptoms: denies other symptoms Treatments prior to arrival: other (Patient given Ativan earlier today in the emergency room) If self harm: admits thoughts of self harm and has plan Related Data Allergies Allergy/AdvReac Type Severity Reaction Status Date / Time fluconazole Allergy Severe Vomiting, Verified 01/06/25 09:42 DIZZINESS, DIARRHEA latex Allergy Intermediate Unknown Verified 01/06/25 09:42 Penicillins Allergy Intermediate Unknown Verified 01/06/25 09:42 propoxyphene (Darvocet-N 100) Allergy Intermediate Unknown Verified 01/06/25 09:42 Review of Systems 2 Review of Systems: All systems reviewed & are unremarkable except as noted in HPI and below Constitutional: Constitutional: Reports no additional constitutional complaints Eyes: Eyes: Reports no additional eye complaints ENT: Reports system reviewed and no additional complaints, except as documented Cardiovascular: Cardiovascular: Reports no additional cardiovascular complaints Respiratory: Respiratory: Reports no additional respiratory complaints Gastrointestinal: Gastrointestinal: Reports no additional gastrointestinal complaints Genitourinary: Genitourinary: Reports no additional female genitourinary complaints Musculoskeletal: Musculoskeletal: Reports no additional musculoskeletal complaints Integumentary/Breasts: Skin/Breast: Reports system reviewed and no additional complaints, except as docu Neurologic: Reports system reviewed and no additional complaints, except as documented Psychiatric: Psychiatric: Reports no additional psychiatric complaints Endocrine: Endocrine: Reports no additional endocrine complaints Hematologic/Lymphatic: Hematologic/Lymphatic: Reports no additional hematologic/lymphatic complaints Allergic/Immunologic: Allergic/Immunologic: Reports no additional allergic/immunologic complaints PMFSH Past Medical History Medical History Abdominal pain Obesity Diabetic peripheral neuropathy Schizophrenia Nicotine dependence Methamphetamine abuse Hypertension associated with diabetes Hyperlipidemia associated with type 2 diabetes mellitus Tobacco dependence ADHD Depression RAJ (generalized anxiety disorder) Vitamin D deficiency Type 2 diabetes mellitus Bipolar disorder Surgical History Surgical History Status post open reduction with internal fixation of fracture (~2002) Right ankle fracture with subsequent removal hardware 4 years later History of bilateral tubal ligation (~2009) Hx of tonsillectomy (~1994) Family History Family History Mother Ovarian cancer Diabetes mellitus Multiple sclerosis Grandparent Ovarian cancer Father Heart disease Leukemia Social History Social History Social History: She has smoked as much as 2 packs of cigarettes per day. She started smoking when she was 18. She is down to 1 pack of cigarettes per day. She does not drink any alcohol. She smokes marijuana daily. She has smoked and snorted methamphetamines for the last 7 years. She denies any other illicit substance use. She lives with her significant other. She has 9 cats and 3 dogs at home. She has a pit bull, husky and hound dog. Smoking packs per day: 1.5 Smoking cigarettes per day: 30.0 Years smoked: 23 Smoking pack-years: 34.50 Tobacco type: cigarettes Additional smoking assessment comments: Patient stated she use to smoke 2 packs a day Alcohol intake: never Substance use: current Substance use type: methamphetamine Last use: 10/06/2021 marijuana, meth 10/10/2022 Lack of Transportation: YES Lack of Food: Sometimes True Current Housing: I Have Housing Concerned About Future Housing: Decline to Answer Difficulty Paying Gas/Electric Bills: YES Difficulty Paying for Meds: No Currently Unemployed: No Education: High School Diploma/GED Difficulty w/ Childcare or Family Care: No Additional living arrangements comments: Lives with her significant other. Additional occupation/education comments: On disability. Spiritual care concerns: No Exam 2 Const: General: healthy appearing Nutritional Appearance: well nourished Orientation/consciousness: patient oriented x3 Limitations: no limitations HENMT: Head: normal to inspection Ears: external ears normal F emily/Nose/Sinus: Normal external nose present Eyes: Conjunctivae: conjunctivae normal Pupils: Equal, round and reactive pupils present EOM: EOMs intact bilaterally Neck: Neck: normal visual inspection Chest: Chest palpation & inspection: normal inspection of the chest Resp: Effort & Inspection: normal respiratory effort and not labored A uscultation: clear to auscultation bilaterally and no crackles Cardio: Rate: regular rate Rhythm: regular rhythm Heart sounds: no murmurs GI: Inspection: non-distended GI Palp: Yes Soft to palpation and No Tenderness to palpation present (GI) Auscultation: normal bowel sounds : General: Yes bladder normal to palpation Back/Spine/Pelvis: Back: no CVA tenderness Skin: General skin exam: normal color Rashes: no rashes Wounds: no wounds Neuro: General: patient oriented x3, moves all extremities and no meningeal signs Cranial nerves: Yes Nystagmus not present Speech: normal speech G ait exam (Neuro): Normal gait present Extrem: General: normal to inspection, no clubbing, cyanosis or edema and no pedal edema Psych: Mental Status: mental status grossly normal Affect: Sad affect present (Anxious) Attitude: cooperative Other: Suicidal ideation to shoot herself in the head; no homicidal ideation Course Vital Signs Vital signs: Vital Signs Temperature 36.5 C 01/06/25 16:24 Pulse Rate 89 01/06/25 16:24 Respiratory Rate 20 01/06/25 16:24 Blood Pressure 124/72 01/06/25 16:24 Pulse Oximetry 98 01/06/25 16:24 Oxygen Delivery Room Air 01/06/25 16:24 Temperature 36.5 C 01/06/25 16:24 Pulse Rate 89 01/06/25 16:24 Respiratory Rate 20 01/06/25 16:24 Blood Pressure 124/72 01/06/25 16:24 Pulse Oximetry 98 01/06/25 16:24 Oxygen Delivery Room Air 01/06/25 16:24 MDM - Psych MDM Narrative Medical decision making narrative: Patient is a 44-year-old female known for recurrent ER visits and desires to get sleep tonight and asked if she can just stay in the emergency room but she also said that she is suicidal and would like to shoot herself in the head. We will do a psychiatric workup and get the psychiatric counselors to come see patient for a plan. Patient medically cleared for psychiatric evaluation. Lab Data Attestation: I reviewed the patient's lab results. 01/06/25 16:35 01/06/25 16:35 Labs: Lab Results 01/06/25 01/06/25 01/06/25 Range/Units 16:25 16:26 16:35 WBC 9.0 (4.8-10.8) K/mm3 RBC 5.10 (4.20-5.40) M/mm3 Hgb 14.1 (12.0-15.0) g/dL Hct 43.1 (35.0-49.0) % MCV 84.5 (78.0-102.0) fL MCH 27.6 (27.0-31.0) pg MCHC 32.7 (32-36) g/dL RDW 13.2 (11.6-14.4) % Plt Count 431 H (150-420) K/mm3 MPV 8.9 L (9.2-11.8) fl Immature Gran % (Auto) 0.3 H (0.0-0.0) % Neut % (Auto) 59.5 (50.0-70.0) % Lymph % (Auto) 27.7 (18.0-42.0) % Ceiba % (Auto) 8.6 (2.0-11.0) % Eos % (Auto) 3.3 (1.0-6.0) % Baso % (Auto) 0.6 (0.0-1.0) % Lymph # (Auto) 2.50 (1.10-4.50) K/mm3 [place] # (Auto) 0.78 (0.10-0.90) K/mm3 Eos # (Auto) 0.30 (0.02-0.50) K/mm3 Baso # (Auto) 0.05 (0.00-0.10) K/mm3 Abs Immat Gran (auto) 0.03 H (0.00-0.00) K/mm3 Absolute Neuts (auto) 5.38 (1.70-7.20) K/mm3 Absolute Nucleated RBC 0.00 (0.00-0.00) K/mm3 Nucleated RBC % 0.0 (0-0.0) % Sodium 139 (137-145) mmol/L Potassium 3.5 (3.4-5.0) mmol/L Chloride 100 (98-107) mmol/L Carbon Dioxide 31 H (22-30) mmol/L Anion Gap 8 (4-12) mmol/L BUN 16 (7-17) mg/dL Creatinine 0.74 (0.7-1.0) mg/dL Estim Creat Clear Calc 118 ml/min Estimated GFR > 60 (59 - ) Glucose 130 H (65-110) mg/dL Calculated Osmolality 291 (285-295) mOsm/kg Calcium 8.8 (8.4-10.2) mg/dL Total Bilirubin 1.3 (0.2-1.3) mg/dL AST 37 H (14-36) U/L ALT 39 H (6-35) U/L Alkaline Phosphatase 77 (38-126) U/L Total Protein 7.6 (6.3-8.2) g/dL Albumin 4.7 (3.5-5.1) g/dL TSH 1.550 (0.465-4.680) uIU/mL Urine Color Light yellow (Yellow) Urine Appearance Clear (Clear) Urine pH 6.0 (5.0-8.0) Ur Specific [place] 1.010 (1.010-1.020) Urine Protein Negative (Negative) Urine Glucose (UA) 3+ H (Negative) Urine Ketones Negative (Negative) Ur Blood (Man) Negative (Negative) Urine Nitrate Negative (Negative) Urine Bilirubin Negative (Negative) Urine Urobilinogen 0.2 (0.2-1.0) mg/dL Leukocyte Esterase Rfl Negative (Negative) RANDOLPH/UL Salicylates < 1.0 L (2-20) mg/dL Urine Opiates Screen Negative (Negative) Urine Methadone Screen Negative (Negative) Acetaminophen < 10 L (10-30) ug/mL Ur Barbiturates Screen Negative (Negative) Ur Phencyclidine Scrn Negative (Negative) Ur Amphetamine Screen Positive A (Negative) U Benzodiazepines Scrn Positive A (Negative) Urine Cocaine Screen Negative (Negative) U Cannabinoids Screen Positive A (Negative) Ethyl Alcohol < 10 (<10) mg/dL ECG Data EKG #1: Attestation: I personally reviewed and interpreted this ECG as follows: ECG completion date: 01/06/25 ECG completion time: 17:04 EKG Interpretation: normal rate, sinus rhythm, no ectopy, non-specific ST changes, normal QRS, normal QT, left axis and NL axis Discharge Plan Discharge Clinical Impression: Acute reaction to stress, Methamphetamine abuse Patient Disposition: Home Condition: Stable Patient Language: Syriac Prescriptions: No Action (DME) lancets [TRUEplus Lancets] 33 gauge misc See Rx Instructions .ROUTE .COMPLEX Qty: 100 5RF Dose Instruction: DIRECTED. TESTING 4 TIMES A DAY DX:E11.9 Rx Instructions: DIRECTED. TESTING 4 TIMES A DAY DX:E11.9 (DME) blood sugar diagnostic Strip See Rx Instructions .Route Qty: 50 2RF Rx Instructions: As directed duloxetine 60 mg capsule,delayed release(DR/EC) See Rx Instructions .ROUTE .COMPLEX Qty: 180 3RF Dose Instruction: TAKE TWO CAPSULES BY MOUTH EVERY MORNING Rx Instructions: TAKE TWO CAPSULES BY MOUTH EVERY MORNING ziprasidone HCl 60 mg capsule See Rx Instructions .ROUTE .COMPLEX Qty: 180 0RF Dose Instruction: TAKE ONE CAPSULE BY MOUTH EVERY MORNING AND TWO CASPULES EVERY EVENING Rx Instructions: TAKE ONE CAPSULE BY MOUTH EVERY MORNING AND TWO CASPULES EVERY EVENING (DME) blood-glucose meter [Blood Glucose Monitoring] Kit See Rx Instructions .Route Qty: 1 0RF Rx Instructions: As directed (DME) pen needle, diabetic [TRUEplus Pen Needle] 29 gauge x 1/2 needle See Rx Instructions .ROUTE .COMPLEX Qty: 100 5RF Dose Instruction: USING 3 TIMES A DAY Rx Instructions: USING 3 TIMES A DAY atenolol 50 mg tablet See Rx Instructions .ROUTE .COMPLEX Qty: 90 3RF Dose Instruction: TAKE ONE TABLET BY MOUTH DAILY Rx Instructions: TAKE ONE TABLET BY MOUTH DAILY simvastatin 40 mg tablet See Rx Instructions .ROUTE .COMPLEX Qty: 90 0RF Dose Instruction: TAKE ONE TABLET BY MOUTH DAILY Rx Instructions: TAKE ONE TABLET BY MOUTH DAILY gabapentin 100 mg capsule See Rx Instructions .ROUTE .COMPLEX Qty: 180 0RF Dose Instruction: TAKE ONE CAPSULE BY MOUTH IN THE MORNING AND TWO CAPSULES IN THE EVENING Rx Instructions: TAKE ONE CAPSULE BY MOUTH IN THE MORNING AND TWO CAPSULES IN THE EVENING dapagliflozin propanediol [Farxiga] 10 mg tablet See Rx Instructions .ROUTE .COMPLEX Qty: 90 3RF Dose Instruction: TAKE ONE TABLET BY MOUTH DAILY Rx Instructions: TAKE ONE TABLET BY MOUTH DAILY Trulicity 1.5 mg/0.5 mL pen injector See Rx Instructions .ROUTE .COMPLEX Qty: 2 0RF Dose Instruction: INJECT ONE AND A HALF (1 & 1/2) MG SUBCUTANEOUSLY ONCE WEEKLY Rx Instructions: INJECT ONE AND A HALF (1 & 1/2) MG SUBCUTANEOUSLY ONCE WEEKLY alprazolam 2 mg tablet 2 mg PO BID PRN (Reason: anxiety) Qty: 20 0RF trazodone 100 mg tablet See Rx Instructions .ROUTE .COMPLEX Qty: 60 0RF Dose Instruction: TAKE TWO TABLETS BY MOUTH AT BEDTIME Rx Instructions: TAKE TWO TABLETS BY MOUTH AT BEDTIME Follow-up/Referrals: Clark Graff DO [Primary Care Provider, Family Practice] Time of Disposition: 17:53
[2025-01-06 16:40] LABS: Hematocrit 43.1 % (35.0-49.0); Hemoglobin 14.1 g/dL (12.0-15.0); Immature Granulocyte Percent A 0.3 % (0.0-0.0); Lymphocytes Absolute Auto 2.50 K/mm3 (1.10-4.50); Mean Corpuscular HGB Conc 32.7 g/dL (32-36); Mean Corpuscular Hemoglobin 27.6 pg (27.0-31.0); Mean Corpuscular Volume 84.5 fL (78.0-102.0); Nucleated Red Blood Cells Absolute Auto 0.00 K/mm3 (0.00-0.00); Nucleated Red Blood Cells Perc 0.0 % (0-0.0); Platelet Count Result 431 K/mm3 (150-420); Red Blood Count 5.10 M/mm3 (4.20-5.40); White Blood Count 9.0 K/mm3 (4.8-10.8)
[2025-01-06 16:44] LABS: Add Urine Microscopic? NO; Appearance Urine Clear (Clear); Glucose Urine UA 3+ (Negative); Leukocyte Esterase Ur Negative LEU/UL (Negative); Nitrate Urine Negative (Negative); Specific Grav Ur 1.010 (1.010-1.020)
[2025-01-06 16:50] LABS: Salicylate < 1.0 mg/dL (2-20)
[2025-01-06 16:51] LABS: Acetaminophen < 10 ug/mL (10-30)
[2025-01-06 16:55] LABS: Anion Gap 8 mmol/L (4-12); Blood Urea Nitrogen 16 mg/dL (7-17); Carbon Dioxide 31 mmol/L (22-30); Chloride 100 mmol/L (98-107); Potassium 3.5 mmol/L (3.4-5.0); Sodium 139 mmol/L (137-145)
[2025-01-06 16:56] LABS: Alanine Aminotransferase 39 U/L (6-35); Albumin Level 4.7 g/dL (3.5-5.1); Alkaline Phosphatase 77 U/L (38-126); Aspartate Amino Transferase 37 U/L (14-36); Bilirubin,Total 1.3 mg/dL (0.2-1.3); Calcium 8.8 mg/dL (8.4-10.2); Estimated CRCL calculation 118 ml/min; Estimated Glomerular Filt Rate > 60; Glucose 130 mg/dL (65-110); Osmolality Calculated 291 mOsm/kg (285-295); Total Protein 7.6 g/dL (6.3-8.2)
[2025-01-06 17:01] LABS: Cannabinoid Screen Urine Positive (Negative)
--- OUTSIDE RECORDS SUMMARY | 2025-01-06 17:04 | XMS_ITS | Clinical Summary ---
Author Organization [facility] Address [address] [place] [address] Care Team Providers Care Custom Van Converter Name Role Phone DajuanClark Primary Care Provider [phone] Allergies Active Allergy Reactions Criticality Noted Date [...] CDT - 12/26/2024 3:20 PM CDT Emergency [facility] [address] [place] [address] [place] [address] Wes Rob MD Anxiety Discharge Disposition: Home or Self Care (Routine Discharge) 12/26/2024 Travel 12/20/2024 4:05 PM CDT - 12/20/2024 6:02 PM CDT Emergency [facility] [address] [place] [address] [place] [address] Mackenzie White MD Anxiety Discharge Disposition: Home [...] PM CDT Legal Sex Female 10:42 PM DUST SAMPLER Gender Identity Not on file Sexual Orientation [...] PAPILLOMAVIRUS, HIGH-RISK TYPES Routine 04/02/2022 8:00 AM DUST SAMPLER from Last 3 Months or Most Recently Relevant to Health Maintenance Results * HUMAN PAPILLOMAVIRUS, HIGH-RISK TYPES (04/02/2022 8:00 AM DUST SAMPLER) SPEC DESCRIPTION CERVIX 04/04/19 23 2:54 PM DUST SAMPLER [facility] HPV DNA HIGH RISK NEGATIVE NEGATIVE 04/04/2022 7:19 PM DUST SAMPLER [facility] Comment:SEE CYTOLOGY REPORT 04/02/2022 8:00 AM DUST SAMPLER Marcela Lowe JAWBONE PULLER PATHOLOGY/CYTOLOGY ORDERA GOLD Final Result [facility] [address] [place] [address], from Last 3 Months or Most Recently Relevant to Health Maintenance Additional Health Concerns Infection Onset Date Last Indicated MRSA 03/16/2018 03/16/2018 Insurance [address] [place] [address] [place] Care Teams Custom Van Converter Relationship Specialty Start Date End Date Clark Graff DO [address] [place] [address] PCP - General FAMILY PRACTICE 01/17/20
[2025-01-06 17:22] LABS: Thyroid Stimulating Hormone 1.550 uIU/mL (0.465-4.680)
--- NOTE | 2025-01-06 18:16 | PC.NURSE ---
FOID REPORTING TO DATABASE COMPLETED
--- NOTE | 2025-01-06 18:55 | PC.NURSE ---
REPORT TO HUEY MELO. JUICE GIVEN REQUESTED
[2025-01-06 20:25] VITALS: BP 114/65; PULSE 80; RESP 16; TEMP 37.1; O2SAT 97
[2025-01-06] MEDS: diazePAM INJ (*CRX) 10 MG/2 ML SYRINGE 5 MG IM ×2 (20:33→23:41)
[2025-01-06] MEDS: ZIPRASIDONE HCL 20 MG CAPSULE 120 MG PO (21:20)
[2025-01-06] MEDS: GABAPENTIN 100 MG CAPSULE 200 MG PO (21:21)
--- NOTE | 2025-01-06 21:30 | PC.NURSE ---
Maritza from [facility] called and stated that [facility] is requesting a COVID swab
[2025-01-06 21:40] VITALS: RESP 16
--- NOTE | 2025-01-06 21:40 | PC.NURSE ---
Pt resting on bed, watching tv. Pt has been calm and cooperative. COVID swab sent to lab.
--- NOTE | 2025-01-06 21:55 | PC.NURSE ---
Layton continues to be at bedside.
--- NOTE | 2025-01-06 22:32 | PC.NURSE ---
Melony from Lab called and stated that the COVID swab machine gave her an error and the swab will have to be re-ran. Will be an additional hour before we have results.
[2025-01-06 23:12] LABS: Influenza A QL RT-PCR Negative (Negative); Influenza B QL RT-PCR Negative (Negative); RSV RNA, RT-PCR Negative (Negative); SARS-CoV-2 RNA PCR Negative (Negative)
--- NOTE | 2025-01-07 00:22 | PC.NURSE ---
Called HUEY Torres, [facility], to let him know that pt is on her way per [facility].
[2025-01-07 06:11] LABS: Pregnancy On Board Control Positive
== END 2025-01-07 00:05 ==
PROVIDERS: Emergency Provider Emergency Medicine; PCP Family Medicine
DX: F43.0 Acute stress reaction (principal); F15.10 Other stimulant abuse, uncomplicated; R45.851 Suicidal ideations; E11.9 Type 2 diabetes mellitus without complications; I10 Essential (primary) hypertension; E78.5 Hyperlipidemia, unspecified; F17.210 Nicotine dependence, cigarettes, uncomplicated; Z20.822 Contact with and (suspected) exposure to COVID-19
CPT/HCPCS: 36415; 80053; 80143; 80179; 80307; 81003; 81025; 82077; 84443; 85025; 87637; 93005; 96372; 99284; A9270; J3360

== ENCOUNTER 2025-01-18 08:50 | Emergency (ER) | payer OTHER, SELFPAY ==
[2025-01-18 08:51] VITALS: BP 137/81; PULSE 97; RESP 20; TEMP 36.6; O2SAT 100
--- NOTE | 2025-01-18 09:00 | ED.PSYCH ---
HPI - Psych General Chief Complaint: Psychiatric Symptoms Stated Complaint: anxiety Source: patient Mode of arrival: ambulatory Limitations: no limitations History of Present Illness HPI Narrative: Patient is a 44-year-old female with acute anxiety flare. She has no other complaints. Patient is known to use methamphetamines. She typically shows up to the emergency room after she runs out of meth and gets anxiety. No suicide or homicide ideation. MD complaint: other (Anxiety) Onset (ago): day(s) (1) Duration: constant History of same: Yes Relieving factors: medication Exacerbating factors: drug use and other ( of a family member on this particular day) Context: recent drug abuse and other (Patient uses her Xanax too often and does not allow refill from this emergency room; she also is known to go to other emergency rooms for the same) Associated psychiatric symptoms: depression (Not today) and racing thoughts (Not today) Associated symptoms: denies other symptoms Treatments prior to arrival: none (She said she is out of her Xanax) Related Data Allergies Allergy/AdvReac Type Severity Reaction Status Date / Time fluconazole Allergy Severe Vomiting, Verified 01/18/25 08:57 DIZZINESS, DIARRHEA latex Allergy Intermediate Unknown Verified 01/18/25 08:57 Penicillins Allergy Intermediate Unknown Verified 01/18/25 08:57 propoxyphene (Darvocet-N 100) Allergy Intermediate Unknown Verified 01/18/25 08:57 Review of Systems Review of Systems: All systems reviewed & are unremarkable except as noted in HPI and below Constitutional: Constitutional: Reports no additional constitutional complaints Eyes: Eyes: Reports no additional eye complaints ENT: Reports system reviewed and no additional complaints, except as documented Cardiovascular: Cardiovascular: Reports no additional cardiovascular complaints Respiratory: Respiratory: Reports no additional respiratory complaints Gastrointestinal: Gastrointestinal: Reports no additional gastrointestinal complaints Genitourinary: Genitourinary: Reports no additional female genitourinary complaints Musculoskeletal: Musculoskeletal: Reports no additional musculoskeletal complaints Integumentary/Breasts: Skin/Breast: Reports system reviewed and no additional complaints, except as docu Neurologic: Reports system reviewed and no additional complaints, except as documented Psychiatric: Psychiatric: Reports no additional psychiatric complaints Endocrine: Endocrine: Reports no additional endocrine complaints Hematologic/Lymphatic: Hematologic/Lymphatic: Reports no additional hematologic/lymphatic complaints Allergic/Immunologic: Allergic/Immunologic: Reports no additional allergic/immunologic complaints PMFSH Past Medical History Medical History Abdominal pain Obesity Diabetic peripheral neuropathy Schizophrenia Nicotine dependence Methamphetamine abuse Hypertension associated with diabetes Hyperlipidemia associated with type 2 diabetes mellitus Tobacco dependence ADHD Depression RAJ (generalized anxiety disorder) Vitamin D deficiency Type 2 diabetes mellitus Bipolar disorder Surgical History Surgical History Status post open reduction with internal fixation of fracture (~2002) Right ankle fracture with subsequent removal hardware 4 years later History of bilateral tubal ligation (~2009) Hx of tonsillectomy (~1994) Family History Family History Mother Ovarian cancer Diabetes mellitus Multiple sclerosis Grandparent Ovarian cancer Father Heart disease Leukemia Social History Social History Social History: She has smoked as much as 2 packs of cigarettes per day. She started smoking when she was 18. She is down to 1 pack of cigarettes per day. She does not drink any alcohol. She smokes marijuana daily. She has smoked and snorted methamphetamines for the last 7 years. She denies any other illicit substance use. She lives with her significant other. She has 9 cats and 3 dogs at home. She has a pit bull, husky and hound dog. Smoking packs per day: 1.5 Smoking cigarettes per day: 30.0 Years smoked: 23 Smoking pack-years: 34.50 Smoking status: Current every day smoker Tobacco type: cigarettes Additional smoking assessment comments: Patient stated she use to smoke 2 packs a day Alcohol intake: never Substance use: current Substance use type: marijuana, amphetamines and methamphetamine Last use: 10/06/2021 marijuana, meth 10/10/2022 Lack of Transportation: YES Lack of Food: Sometimes True Current Housing: I Have Housing Concerned About Future Housing: Decline to Answer Difficulty Paying Gas/Electric Bills: YES Difficulty Paying for Meds: No Currently Unemployed: No Education: High School Diploma/GED Difficulty w/ Childcare or Family Care: No Additional living arrangements comments: Lives with her significant other. Additional occupation/education comments: On disability. Spiritual care concerns: No Exam Const: General: healthy appearing Nutritional Appearance: well nourished Orientation/consciousness: patient oriented x3 HENMT: Head: normal to inspection Ears: external ears normal Face/Nose/Sinus: Normal external nose present Eyes: Conjunctivae: conjunctivae normal Pupils: Equal, round and reactive pupils present EOM: EOMs intact bilaterally Neck: Neck: normal visual inspection Chest: Chest palpation & inspection: normal inspection of the chest Resp: Effort & Inspection: normal respiratory effort and not labored Auscultation: clear to auscultation bilaterally and no crackles Cardio: Rate: regular rate Rhythm: regular rhythm Heart sounds: no murmurs GI: Inspection: non-distended GI Palp: Yes Soft to palpation and No Tenderness to palpation present (GI) Auscultation: normal bowel sounds : General: Yes bladder normal to palpation Back/Spine/Pelvis: Back: no CVA tenderness Skin: General skin exam: normal color Rashes: no rashes Wounds: no wounds Neuro: General: patient oriented x3, moves all extremities and no meningeal signs Extrem: General: normal to inspection, no clubbing, cyanosis or edema and no pedal edema Psych: Mental Status: mental status grossly normal Affect: No normal affect (Anxiety) Attitude: cooperative Other: No suicide or homicide ideation Course Vital Signs Vital signs: Vital Signs Temperature 36.6 C 01/18/25 08:51 Pulse Rate 97 01/18/25 08:51 Respiratory Rate 20 01/18/25 08:51 Blood Pressure 137/81 01/18/25 08:51 Pulse Oximetry 100 01/18/25 08:51 Oxygen Delivery Room Air 01/18/25 08:51 Temperature 36.6 C 01/18/25 08:51 Pulse Rate 97 01/18/25 08:51 Respiratory Rate 20 01/18/25 08:51 Blood Pressure 137/81 01/18/25 08:51 Pulse Oximetry 100 01/18/25 08:51 Oxygen Delivery Room Air 01/18/25 08:51 MDM - Psych MDM Narrative Medical decision making narrative: Patient is a 44-year-old female with known anxiety disorder and here for acute flare. We will give her an IM dose of Valium and she gets her Xanax with the primary doctor. She has a psychiatrist appointment upcoming next week. We do not fill her chronic Xanax or Ativan at discharge. We only treat her acutely in the ER. Discharge Plan Discharge Clinical Impression: Anxiety disorder Qualifiers: Anxiety disorder type: unspecified anxiety disorder Qualified Code(s): F41.9 - Anxiety disorder, unspecified Patient Disposition: Home Condition: Stable Instructions: Anxiety (ED) Patient Language: Citizen Of [place] Prescriptions: No Action (DME) lancets [TRUEplus Lancets] 33 gauge misc See Rx Instructions .ROUTE .COMPLEX Qty: 100 5RF Dose Instruction: DIRECTED. TESTING 4 TIMES A DAY DX:E11.9 Rx Instructions: DIRECTED. TESTING 4 TIMES A DAY DX:E11.9 (DME) blood sugar diagnostic Strip See Rx Instructions .Route Qty: 50 2RF Rx Instructions: As directed duloxetine 20 mg capsule,delayed release(DR/EC) 20 mg PO BID Qty: 60 0RF ziprasidone HCl 40 mg capsule 80 mg PO BID 30 Days Qty: 120 0RF Rx Instructions: give with food (meal/snack) divalproex [Depakote] 500 mg tablet,delayed release (DR/EC) See Rx Instructions PO Q12H Qty: 90 0RF Rx Instructions: Q12 hours, 500am 1000pm (DME) blood-glucose meter [Blood Glucose Monitoring] Kit See Rx Instructions .Route Qty: 1 0RF Rx Instructions: As directed (DME) pen needle, diabetic [TRUEplus Pen Needle] 29 gauge x 1/2 needle See Rx Instructions .ROUTE .COMPLEX Qty: 100 5RF Dose Instruction: USING 3 TIMES A DAY Rx Instructions: USING 3 TIMES A DAY atenolol 50 mg tablet See Rx Instructions .ROUTE .COMPLEX Qty: 90 3RF Dose Instruction: TAKE ONE TABLET BY MOUTH DAILY Rx Instructions: TAKE ONE TABLET BY MOUTH DAILY simvastatin 40 mg tablet See Rx Instructions .ROUTE .COMPLEX Qty: 90 0RF Dose Instruction: TAKE ONE TABLET BY MOUTH DAILY Rx Instructions: TAKE ONE TABLET BY MOUTH DAILY dapagliflozin propanediol [Farxiga] 10 mg tablet See Rx Instructions .ROUTE .COMPLEX Qty: 90 3RF Dose Instruction: TAKE ONE TABLET BY MOUTH DAILY Rx Instructions: TAKE ONE TABLET BY MOUTH DAILY trazodone 100 mg tablet See Rx Instructions .ROUTE .COMPLEX Qty: 60 0RF Dose Instruction: TAKE TWO TABLETS BY MOUTH AT BEDTIME Rx Instructions: TAKE TWO TABLETS BY MOUTH AT BEDTIME lorazepam [Ativan] 0.5 mg tablet 0.5 mg PO DAILY PRN (Reason: anxiety) Qty: 20 0RF miconazole nitrate 200 mg suppository 200 mg vaginal QHS 3 Days Qty: 3 1RF Trulicity 1.5 mg/0.5 mL pen injector See Rx Instructions .ROUTE .COMPLEX Qty: 2 0RF Dose Instruction: INJECT ONE AND A HALF (1 & 1/2) MG SUBCUTANEOUSLY ONCE WEEKLY Rx Instructions: INJECT ONE AND A HALF (1 & 1/2) MG SUBCUTANEOUSLY ONCE WEEKLY Follow-up/Referrals: Clark Graff DO [Primary Care Provider, [facility]] Time of Disposition: 09:09
[2025-01-18] MEDS: LORazepam (*CRX) 1 MG TABLET PO (09:22)
== END 2025-01-18 09:25 | disposition home or self-care (01) ==
PROVIDERS: Emergency Provider Emergency Medicine; PCP Family Medicine
DX: F41.9 Anxiety disorder, unspecified (principal); E11.9 Type 2 diabetes mellitus without complications; E78.5 Hyperlipidemia, unspecified; I10 Essential (primary) hypertension; F17.210 Nicotine dependence, cigarettes, uncomplicated; Z79.899 Other long term (current) drug therapy
CPT/HCPCS: 99283; A9270